=== PATIENT | male | born 1950 | race Caucasian/White ===

== ENCOUNTER 2022-01-01 00:41 | Observation (INO) ==
[2022-01-01 01:20] LABS: Basophils # (auto) 0.06 K/uL (0-0.2); Basophils % (auto) 0.7 %; Eosinophils # (auto) 0.13 K/uL (0-0.50); Eosinophils % (auto) 1.5 %; Hematocrit (blood only) 44.3 % (40.1-51.0); Hemoglobin 14.9 g/dl (14.0-18.0); Immature Granulocytes # (auto) 0.02 K/uL (0.00-0.02); Immature Granulocytes % (auto) 0.2 %; Lymphocytes # (auto) 2.52 K/uL (1.2-3.4); Lymphocytes % (auto) 29.2 %; Mean Corpuscular Hemoglobin 28.6 pg (25.0-34.0); Mean Corpuscular Hgb Conc 33.6 g/dL (32.0-36.0); Mean Platelet Volume 10.8 fL (9.4-12.4); Monocytes % (auto) 9.3 %; Neutrophils # (auto) 5.09 K/uL (1.4-6.5); Neutrophils % (auto) 59.1 %; Platelet Count 232 K/uL (130-400); RDW Coefficient of Variation 15.4 % (11.5-14.5); RDW Standard Deviation 47.5 fL (36.4-46.3); Red Blood Count 5.21 M/uL (4.63-6.08); White Blood Count 8.62 K/ul (4.8-10.8)
[2022-01-01 01:44] LABS: Albumin Globulin Ratio 1.2 (0.9-2); Albumin Level 3.8 gm/dl (3.4-5.0); BUN Creatinine Ratio 23.3 (10-20); Bilirubin,Total 0.8 mg/dl (0.2-1.0); Calcium 9.5 mg/dl (8.5-10.1); Creatinine Clr Calc Pharmacy 96.3 ml/min; Est GFR (African American) 99.7 ml/min; Globulin 3.3 gm/dl (2.5-4.0); Magnesium 1.6 mg/dl (1.7-2.4); Potassium 4.3 mmol/L (3.5-5.1); Total Protein 7.1 gm/dl (6.0-8.3)
[2022-01-01 01:47] LABS: Troponin I High Sensitivity 21.7 pg/ml (0-20)
[2022-01-01 01:55] LABS: Thyroid Stimulating Hormone 5.633 uIu/ml (0.300-4.500)
[2022-01-01 02:30] LABS: T4 Free Thyroxine 0.86 ng/dl (0.61-1.60)
--- NOTE | 2022-01-01 03:54 | Emergency Department Note ---
Impression & Plan Atrial fibrillation with rapid ventricular response, Implantable cardioverter- defibrillator (ICD) discharge, Elevated troponin The patient will be evaluated by the [facility] ED Provider Note NAME: JUAN R MACHUCA AGE: 71 SEX: M ARRIVES VIA: Ambulance INFORMANT: Patient ED PROVIDER(S): Mirlande Kenney DO CHIEF COMPLAINT: Defibrillator fired PLAN: Disposition: Admit to the [facility] Condition: Stable MEDICAL DECISION MAKING: This is a 71-year-old male patient brought to the emergency department after his defibrillator fired 3 times at home. Patient had a pacer/defibrillator placed in 2019. The patient was shaving at home when without any warning, his defibrillator fired. It then fired 2 additional times within approximately 90 seconds. Patient describes having a recent stroke in October 2021 which left him with right-sided hemiparesis. He has been working very hard to regain movement to the right side of his body. The pacer/defibrillator was interrogated by [employer] and revealed he had 3 episodes of A. fib with RVR that was greater than 180. Those 3 dysrhythmias were defibrillated. There was no impact on that rhythm by the shock and some mild slowing of the atrial rate. The patient has no significant electrolyte abnormality other than a mild hypomagnesemia. There is a mildly elevated troponin. The patient remained in an atrial fibrillation with rapid ventricular response and was given a dose of IV Cardizem here in the emergency department which lowered the patient's heart rate down into the 90s. Jeff the case with the [facility] and they will evaluate for further management. Triage Nursing notes reviewed and agree with them. Vital Signs: reviewed and remarkable for tachycardia Differential diagnosis: Ventricular tachycardia, A. fib with RVR, electrolyte abnormality, cardiac ischemia ER treatment provided: IV Cardizem Diagnostics interpreted by me: ECG: Atrial fibrillation at a rate of 119 which is intermittently paced there are T wave inversions in lead I and aVL. This EKG is unchanged from previous EKGs for this patient. Cardiac Monitoring: A. fib at a rate of 110 Laboratory studies: See below Imaging studies: As per my interpretation Chest x-ray: Significant cardiomegaly with mild to moderate pulmonary vascular congestion HPI: 71/M arrives for evaluation of his defibrillator firing. The patient was preparing for bed when he noted that his defibrillator fired 3 times in the span of 90 seconds. The patient denied any chest pain or shortness of breath or any other warning symptoms. ROS: See above HPI for pertinent positives & negatives. A total of 10 systems reviewed and were otherwise negative. PAST MEDICAL HISTORY:Recent stroke in October 2021 which left him with right-sided hemiparesis; paroxysmal A. fib; ischemic cardiomyopathy; diabetes PAST SURGICAL HISTORY:See Below FAMILY HISTORY:See Below SOCIAL HISTORY:The patient is currently living with his son for rehab. He denies any drug or alcohol use. HOME MEDICATIONS:See list ALLERGIES:None VITALS:See Below PHYSICAL EXAMINATION: HEENT: Head - normocephalic and atraumatic Pupils are equal, round, and reactive to light. Extraocular eye muscles are intact, and sclera are anicteric. Nose - moist nasal mucosa without discharge. Mouth - moist buccal mucosa. Oropharynx is nonerythematous and there is no tonsillar exudate or edema noted. Neck: Supple; no JVD, nuchal rigidity, cervical lymphadenopathy, or auscultated bruits. Heart: Tachycardic rate with an irregularly irregular rhythm. There is a normal S1 and S2 with no murmurs, clicks, or gallops appreciated. Lungs: Clear to auscultation bilaterally with no wheezes, rales, or rhonchi. Abdomen: Soft, completely nontender, nondistended, with good bowel sounds. There are no palpable pulsatile masses or hepatosplenomegaly. There is no guarding, rigidity, or rebound noted. Extremities: No evidence of cyanosis, clubbing, or edema. There are easily palpable peripheral pulses. Skin: warm and dry with good turgor and no rashes. ED COURSE: Times/Reassessments: 0045: Was evaluated in room C4. A complete history and physical was performed. Report was received from EMS. A twelve-lead EKG was obtained as described above. An order was placed for continuous cardiac monitoring. The patient was then A. fib with rapid ventricular response at a rate of 110. Laboratory studies were drawn as above. A portable chest x-ray was performed. Patient's pacer/defibrillator was interrogated. Given a dose of IV Cardizem. I discussed the case with the [facility] Hospitalist. Mirlande A Botti, DO Past Med/Surg History Surgical History H/O heart bypass surgery Social History Smoking Status: Never smoker Feels Safe at Home: Yes Allergies Allergies Allergy/AdvReac Type Severity Reaction Status Date / Time No Known Allergies Allergy Verified 01/01/22 01:30 Home Meds Home Medications Medication Instructions Recorded Confirmed aspirin 81 mg tablet,delayed 81 mg PO DAILY 09/03/20 01/01/22 release atorvastatin 80 mg tablet 80 mg PO .DAILY IN AFTERNOON 01/01/22 01/01/22 clopidogrel 75 mg tablet 75 mg PO QAM 01/01/22 01/01/22 escitalopram oxalate 10 mg tablet 10 mg PO HS 01/01/22 01/01/22 (Lexapro) metoprolol succinate 100 mg 100 mg PO QAM 01/01/22 01/01/22 tablet,extended release 24 hr spironolactone 25 mg tablet 25 mg PO QPM 01/01/22 01/01/22 Previous Rx's Medication Instructions Recorded furosemide 20 mg tablet 10 mg PO DAILY PRN edema #90 tabs 12/13/21 metformin 500 mg tablet 500 mg PO BID #180 tabs 12/13/21 Results & Data (ED) Vital Signs Vital Signs - 24 hr 01/01/22 01:26 01/01/22 01:33 01/01/22 01:13 Temperature 36.5 C Temperature Source Oral Pulse Rate 108 H 107 H Pulse Rate [Finger] Pulse Rate from SpO2 Sensor 114 H Pulse Rhythm Irregular Respiratory Rate 14 22 Respiratory Effort / Characteristics Non-Labored Respiratory Depth Normal Normal Blood Pressure 125/93 Blood Pressure [Right Arm] Blood Pressure Mean 103 Blood Pressure Mean [Right Arm] Blood Pressure Position [Right Arm] Pulse Oximetry 98 94 Oxygen Delivery Method Room Air Sepsis Recent Fever Within 48 Hours No Sepsis New/Unexplained Change in Mental Status N/A Sepsis Action Taken by Nursing No Action Required 01/01/22 01:20 01/01/22 01:30 01/01/22 01:30 Temperature Temperature Source Pulse Rate 116 H 104 H Pulse Rate [Finger] Pulse Rate from SpO2 Sensor 112 H Pulse Rhythm Respiratory Rate 12 17 Respiratory Effort / Characteristics Respiratory Depth Blood Pressure 125/93 Blood Pressure [Right Arm] Blood Pressure Mean 103 Blood Pressure Mean [Right Arm] Blood Pressure Position [Right Arm] Pulse Oximetry 95 Oxygen Delivery Method Sepsis Recent Fever Within 48 Hours Sepsis New/Unexplained Change in Mental Status Sepsis Action Taken by Nursing 01/01/22 01:40 01/01/22 01:50 01/01/22 03:46 Temperature Temperature Source Pulse Rate 112 H 121 H Pulse Rate [Finger] 110 H Pulse Rate from SpO2 Sensor Pulse Rhythm Respiratory Rate 20 13 17 Respiratory Effort / Characteristics Non-Labored Spontaneous Respiratory Depth Normal Blood Pressure Blood Pressure [Right Arm] 105/81 Blood Pressure Mean Blood Pressure Mean [Right Arm] 89 Blood Pressure Position [Right Arm] Sitting Pulse Oximetry 96 Oxygen Delivery Method Room Air Sepsis Recent Fever Within 48 Hours Sepsis New/Unexplained Change in Mental Status Sepsis Action Taken by Nursing 01/01/22 04:40 01/01/22 05:06 Temperature Temperature Source Pulse Rate Pulse Rate [Finger] 113 H 93 H Pulse Rate from SpO2 Sensor Pulse Rhythm Respiratory Rate 19 18 Respiratory Effort / Characteristics Non-Labored Spontaneous Non-Labored Spontaneous Respiratory Depth Normal Normal Blood Pressure Blood Pressure [Right Arm] 131/89 128/96 Blood Pressure Mean Blood Pressure Mean [Right Arm] 103 106 Blood Pressure Position [Right Arm] Sitting Sitting Pulse Oximetry 96 94 Oxygen Delivery Method Room Air Room Air Sepsis Recent Fever Within 48 Hours Sepsis New/Unexplained Change in Mental Status Sepsis Action Taken by Nursing Laboratory Data Result diagrams: 01/01/22 01:06 01/01/22 01:06 Lab Results 01/01/22 01/01/22 01/01/22 Range/Units 01:06 01:06 01:06 WBC 8.62 (4.8-10.8) K/ul RBC 5.21 (4.63-6.08) M/uL Hgb 14.9 (14.0-18.0) g/dl Hct 44.3 (40.1-51.0) % MCV 85.0 (80.0-100.0) fL MCH 28.6 (25.0-34.0) pg MCHC 33.6 (32.0-36.0) g/dL RDW Std Deviation 47.5 H (36.4-46.3) fL RDW Coeff of [place] 15.4 H (11.5-14.5) % Plt Count 232 (130-400) K/uL MPV 10.8 (9.4-12.4) fL Immature Gran % (Auto) 0.2 % Neut % (Auto) 59.1 % Lymph % (Auto) 29.2 % [place] % (Auto) 9.3 % Eos % (Auto) 1.5 % Baso % (Auto) 0.7 % Neut # (Auto) 5.09 (1.4-6.5) K/uL Lymph # (Auto) 2.52 (1.2-3.4) K/uL [place] # (Auto) 0.80 (0.24-0.82) K/uL Eos # (Auto) 0.13 (0-0.50) K/uL Baso # (Auto) 0.06 (0-0.2) K/uL Immature Gran # (Auto) 0.02 (0.00-0.02) K/uL Sodium 136 (136-145) mmol/L Potassium 4.3 (3.5-5.1) mmol/L Chloride 105 (98-107) mmol/L Carbon Dioxide 24 (21-32) mmol/L Anion Gap 7 (3-11) BUN 20 (6-23) mg/dl Creatinine 0.86 (0.6-1.4) mg/dl Est Cr Clr Drug Dosing 96.3 ml/min Est GFR ( Amer) 99.7 ml/min Est GFR (Non-Af Amer) 86.0 ml/min BUN/Creatinine Ratio 23.3 H (10-20) Glucose 129 H (70-99(Fasting)) mg/dl Calcium 9.5 (8.5-10.1) mg/dl Magnesium 1.6 L (1.7-2.4) mg/dl Total Bilirubin 0.8 (0.2-1.0) mg/dl AST 12 L (13-39) U/L ALT 13 (7-52) U/L Alkaline Phosphatase 86 (34-104) U/L Troponin I High Sens 21.7 H (0-20) pg/ml Total Protein 7.1 (6.0-8.3) gm/dl Albumin 3.8 (3.4-5.0) gm/dl Globulin 3.3 (2.5-4.0) gm/dl Albumin/Globulin Ratio 1.2 (0.9-2) TSH 5.633 H (0.300-4.500) uIu/ml Free T4 0.86 (0.61-1.60) ng/dl SARS-CoV-2, RNA, NAAT (NEGATIVE) 01/01/22 Range/Units Unknown WBC (4.8-10.8) K/ul RBC (4.63-6.08) M/uL Hgb (14.0-18.0) g/dl Hct (40.1-51.0) % MCV (80.0-100.0) fL MCH (25.0-34.0) pg MCHC (32.0-36.0) g/dL RDW Std Deviation (36.4-46.3) fL RDW Coeff of [place] (11.5-14.5) % Plt Count (130-400) K/uL MPV (9.4-12.4) fL Immature Gran % (Auto) % Neut % (Auto) % Lymph % (Auto) % [place] % (Auto) % Eos % (Auto) % Baso % (Auto) % Neut # (Auto) (1.4-6.5) K/uL Lymph # (Auto) (1.2-3.4) K/uL [place] # (Auto) (0.24-0.82) K/uL Eos # (Auto) (0-0.50) K/uL Baso # (Auto) (0-0.2) K/uL Immature Gran # (Auto) (0.00-0.02) K/uL Sodium (136-145) mmol/L Potassium (3.5-5.1) mmol/L Chloride (98-107) mmol/L Carbon Dioxide (21-32) mmol/L Anion Gap (3-11) BUN (6-23) mg/dl Creatinine (0.6-1.4) mg/dl Est Cr Clr Drug Dosing ml/min Est GFR ( Amer) ml/min Est GFR (Non-Af Amer) ml/min BUN/Creatinine Ratio (10-20) Glucose (70-99(Fasting)) mg/dl Calcium (8.5-10.1) mg/dl Magnesium (1.7-2.4) mg/dl Total Bilirubin (0.2-1.0) mg/dl AST (13-39) U/L ALT (7-52) U/L Alkaline Phosphatase (34-104) U/L Troponin I High Sens (0-20) pg/ml Total Protein (6.0-8.3) gm/dl Albumin (3.4-5.0) gm/dl Globulin (2.5-4.0) gm/dl Albumin/Globulin Ratio (0.9-2) TSH (0.300-4.500) uIu/ml Free T4 (0.61-1.60) ng/dl SARS-CoV-2, RNA, NAAT NEGATIVE (NEGATIVE) Administered Medications Discontinued Medications Diltiazem HCl (Diltiazem Hcl 5 Mg/Ml 5 Ml Vial) 10 mg IV NOW STA Stop: 01/01/22 04:28 Last Admin: 01/01/22 04:41 Dose: 10 mg Documented By: CC Co-signed By: AN Discharge Plan Visit Data Chief Complaint: Arrhythmia/Palpitations Stated Complaint: PACER/DEFIB - SHOCKED 3 TIMES ED Provider: Mirlande Kenney Discharge Problem: Atrial fibrillation with rapid ventricular response, Implantable cardioverter- defibrillator (ICD) discharge, Elevated troponin Forms Stand Alone Forms: My [facility] Prescriptions Prescriptions: No Action furosemide 20 mg tablet 10 mg PO DAILY PRN (Reason: edema) Qty: 90 3RF metformin 500 mg tablet 500 mg PO BID Qty: 180 3RF atorvastatin 80 mg tablet 80 mg PO .DAILY IN AFTERNOON clopidogrel 75 mg tablet 75 mg PO QAM metoprolol succinate 100 mg tablet extended release 24 hr 100 mg PO QAM spironolactone 25 mg tablet 25 mg PO QPM escitalopram oxalate [Lexapro] 10 mg tablet 10 mg PO HS aspirin 81 mg Tablet,Delayed Release (Dr/Ec) 81 mg PO DAILY Referrals Referrals: Nehemias Acosta DO [Primary Care Provider] -
--- NOTE | 2022-01-01 04:14 | History & Physical Report ---
Date of Service January 01, 2022 Assessment & Plan (1) Implantable cardioverter-defibrillator (ICD) discharge: Plan: 71yo male with a history of atrial fibrillation, ischemic cardiomyopathy s/p ICD placement, HLD, CVA (11/2021), and gout presents after his ICD fired. ICD firing Tachycardia improved after receiving diltiazem 10mg IV (x1) in ED Vitals otherwise stable EKG: NSR, widened QRS, no overt ischemic change Cardiology consulted Elevated troponin On admission, hsTroponin elevated to 21.7, repeat value pending EKG: NSR, no overt sign of ischemic change Patient without CP at this time Hypomagnesemia Magnesium on admission 1.6 Magnesium sulfate 1g IV ordered (x2 bags) Trend serum magnesium Elevated TSH On admission, TSH 5.6 Unclear if this represents hypothyroidism or is an acute phase reactant Recommend follow-up TSH in six weeks on an outpatient basis FEN: HH/DM2 diet, Code status: full code DVT ppx: SCDs Consults: cardiology Dispo: med/telemetry (2) Acute CVA (cerebrovascular accident): (3) Atrial fibrillation with rapid ventricular response: (4) Elevated troponin: (5) Hyperlipidemia: History of Present Illness Primary Care Provider: Nehemias Acosta, 71yo male with a history of atrial fibrillation, ischemic cardiomyopathy s/p ICD placement, HLD, CVA (11/2021), and gout presents after his ICD fired. Patient reports no preceding symptoms nor symptoms after the ICD fired. Of note, patient was hospitalized in October for a CVA. Patient denies fever, chills, headache, vision changes, CP, palpitations, SOB, edema, abdominal pain, nausea, vomiting, dysuria, hematochezia, melena, back pain, lightheadedness, dizziness, numbness, tingling, weakness, or other symptoms. Denies recent illness. Upon arrival, vitals were notable for tachycardia (110-120s). BP controlled, no tachypnea, patient afebrile, spO2 adequate on room air. Initial labs were notable for hypomagnesemia (1.6), minimally elevated hsTroponin (21.7), and elevated TSH (5.6). No leukocytosis, no anemia, platelets wnl, In the ED, patient received diltiazem 10mg IV (x1). Surrogate decision-maker in case of an emergency: son Juancho Cabrera (cell: [phone]) Allergies Allergy/AdvReac Type Severity Reaction Status Date / Time No Known Allergies Allergy Verified 01/01/22 01:30 Home Medications Medication Instructions Recorded Confirmed Type aspirin 81 mg tablet,delayed 81 mg PO DAILY 09/03/20 01/01/22 History release furosemide 20 mg tablet 10 mg PO DAILY PRN edema #90 tabs 12/13/21 01/01/22 Rx metformin 500 mg tablet 500 mg PO BID #180 tabs 12/13/21 01/01/22 Rx atorvastatin 80 mg tablet 80 mg PO .DAILY IN AFTERNOON 01/01/22 01/01/22 History clopidogrel 75 mg tablet 75 mg PO QAM 01/01/22 01/01/22 History escitalopram oxalate 10 mg tablet 10 mg PO HS 01/01/22 01/01/22 History (Lexapro) metoprolol succinate 50 mg 150 mg PO QAM 30 days #90 tabs 01/01/22 Rx tablet,extended release 24 hr spironolactone 25 mg tablet 25 mg PO QPM 01/01/22 01/01/22 History Past Med/Surg History Surgical History H/O heart bypass surgery Social History Smoking Status: Never smoker Hx Alcohol Use: No Hx Substance Use: No Cosmetic Chemist Required: No Beliefs That Will Affect Care: None Current Living Situation: Family Current Living Situation Comment: lives with son Other Information That Helps Us Care for You: No Feels Safe at Home: Yes Safety Concerns: Feels Safe At This Time Assistive Devices: Glasses and Walker Physical Exam Physical Exam: Constitutional: well-appearing, no acute distress HEENT: NCAT, no conjunctival injection CV: regular rhythm, no murmur appreciated, extremities well-perfused, no LE edema Resp: CTABL, no wheezes/rales/rhonchi appreciated, no increased work of breathing GI: soft, nondistended, nontender, BS normoactive MSK: no gross deformities appreciated Skin: midline sternal scar noted Neuro: alert, oriented, no focal neurologic deficit appreciated Results & Data Results & Data ([facility]) Vital Signs (Past 12 Hours) Vital Signs Temp Pulse Pulse Resp BP BP Pulse Ox 01/01/22 03:46 110 H 17 105/81 96 01/01/22 01:50 121 H 13 01/01/22 01:40 112 H 20 01/01/22 01:30 104 H 17 01/01/22 01:30 125/93 01/01/22 01:20 116 H 12 95 01/01/22 01:13 107 H 22 94 01/01/22 01:26 36.5 C 108 H 14 125/93 98 O2 Del Method 01/01/22 03:46 Room Air 01/01/22 01:50 01/01/22 01:40 01/01/22 01:30 01/01/22 01:30 01/01/22 01:20 01/01/22 01:13 01/01/22 01:26 Room Air Supervising Physician Co-Signing Physician Notes Attending addendum: I have physically seen this patient, have supervised the medical residents activities, and agree with the H&P unless as otherwise noted. Assessment and Plan: Status post AICD firing- The patient will be admitted to telemetry for serial cardiac enzymes, serial E KG's, cardiac rhythm monitoring and a 2-D echocardiogram with Dopplers. Given diltiazem 10 mg IV in the ED with improved heart rate ED reports that the report from manufacture did not indicate V. tach [employer] magnesium, which is 1.6 on admission, given 2 g of mag IV and recheck labs in a.m. Consult cardiology Resident Activity Tracking Resident Involvement: Resident Care Provided and Interface Developer Coverage Note Care Provided: Adult Hospital Medicine
[2022-01-01] MEDS ORDERED: dilTIAZem HCl 5 MG/ML 5 ML VIAL IV STA (04:27)
[2022-01-01] MEDS ORDERED: GLUCOSE 10 TAB/TUBE PO PRN (06:00)
[2022-01-01] MEDS ORDERED: CARBOHYDRATES FOR HYPOGLYCEMIA PO PRN (06:00)
[2022-01-01] MEDS ORDERED: DEXTROSE 50% 50 ML SYRINGE IV PRN (06:00)
[2022-01-01] MEDS ORDERED: GLUCAGON FOR INJ 1 MG VIAL SQ PRN (06:00)
[2022-01-01] MEDS ORDERED: GLUCOSE 40% GEL 15 GM TUBE PO PRN (06:00)
[2022-01-01] MEDS: MAGNESIUM SULFATE / D5W 1 GM/100 ML BAG IV SCH ×2 (06:34→08:56)
--- NOTE | 2022-01-01 07:42 | XRay Report ---
SINGLE VIEW CHEST CLINICAL HISTORY: Dysrhythmia. FINDINGS: An AP, portable, upright chest radiograph is compared to study dated 09/03/2020. A 2-lead ca rdiac AICD is unchanged in position and partially obscures the left lower chest. The patient is statu s post midline sternotomy. The heart is enlarged noting atherosclerotic calcification of the thoracic aorta. There is mild pulmonary vascular congestion. Scarring/atelectasis is noted at both lung bases . No large pleural effusion or pneumothorax is seen. The skeletal structures are osteopenic. The bony thorax is grossly intact. IMPRESSION: 1. Cardiomegaly and AICD with mild pulmonary vascular congestion. 2. No airspace consolidation or large pleural effusion is identified. ACT 112: Negative or not required by law. Electronically signed by: Weston Olivo M.D. 01/01/2022 7:41 AM
[2022-01-01] MEDS: INSULIN ASPART PER UNIT SC SCH ×2 (08:11→11:48)
[2022-01-01] MEDS ORDERED: METOPROLOL SUCC 50MG EXT REL TAB PO SCH (09:00)
[2022-01-01] MEDS ORDERED: CLOPIDOGREL BISULFATE 75 MG TAB PO SCH (09:00)
[2022-01-01] MEDS ORDERED: ASPIRIN 81 MG ECTAB PO SCH (09:00)
--- NOTE | 2022-01-01 12:20 | Cardiology Consultation ---
Date of Consultation January 01, 2022 Assessment & Plan (1) Atrial fibrillation with rapid ventricular response: -responsible for 3 ICD defibrillations last evening. -detection threshold was 180 bpm. -Dr Thomas increased the detection threshold to 195bpm. -has been in atrial fibrillation with a ventricular response of 100-110 bpm for 3-4 months. -would increase metoprolol succinate to 150 mg daily. -could consider use of amiodarone. Will defer to his historic preservationist in [facility]. -s/p left atrial appendage exclusion procedure, August 2018, no anticoagulation. -chronic subdural hematoma, August 2020, no anticoagulation. (2) Implantable cardioverter-defibrillator (ICD) discharge: -[employer] device implanted in 2019. -interrogated by Dr. Thomas today as noted above. (3) Ischemic cardiomyopathy: -LVEF of 15-20% on echocardiogram October 2021 ([facility]). -continue metoprolol succinate and spironolactone. -consider initiating low-dose Entresto. -continue follow-up with Dr. Franklin, [facility]. (4) CAD (coronary artery disease): -s/p CABG x4, August 2018. -continue medical management. History of Present Illness Attending Physician: Sherman Hinojosa, History of Present Illness Dr. Cabrera is a 71 year old male admitted earlier today after his defibrillator discharged 3 times in a matter of 90 seconds. This consultation was ordered to assist in his management. Of note, patient typically follows with Dr. Franklin of [facility]. The patient was in his usual state of health until last evening at approximately 11:00 p.m.. He was standing in his bathroom preparing to shave when the 1st discharge occurred. Within 90 seconds, he received 2 more defibrillations. He was brought to the emergency room found to be in atrial fibrillation with a rapid ventricular response. The [employer] investment representative interrogated his device remotely. The patient was in atrial fibrillation with a rapid ventricular response of greater than 180 beats per minute when the 3 discharges occurred. Of note, the patient's magnesium level is low at 1.6. He has received intravenous magnesium. The patient does carry a history of paroxysmal atrial fibrillation. He does not take long-term anticoagulation as he had a left atrial appendage exclusion procedure performed at the time of his bypass surgery in August 2018. Furthermore, he suffered a subdural hematoma back in August 2020. He also carries a history of coronary artery disease having undergone a 4 vessel bypass in August 2018. He also has chronic systolic CHF due to an ischemic cardiomyopathy. Echocardiogram performed back in October noted an ejection fraction 15-20%. He had a dual-chamber defibrillator placed in 2019. The patient suffered a recent right-sided CVA and was admitted to [facility] on November 02, 2021. He had been traveling and [place] when he noticed right- sided weakness. He from [facility] for medical care. He was diagnosed with the left ventral medullary infarction. He was in atrial fibrillation at the time of his admission. As above, his echocardiogram noted severe left ventricular dysfunction. He was transferred to [facility] on November 06 and remained there until November 25. He was discharged home on Plavix alone. Currently, patient is resting comfortably in bed without complaints. Past medical and surgical history 1. Coronary artery disease-see above 2. CABG x4-August 2018 3. Ischemic [id number]%, October 2021 4. Chronic systolic CHF 5. Paroxysmal atrial fibrillation 6. Left atrial appendage exclusion procedure-August 2018 7. Dual chamber ICD-2019 8. Hypertension 9. Hypercholesterolemia 10. Diabetes mellitus 11. Gout 12. Obesity 13. 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 Allergies Allergy/AdvReac Type Severity Reaction Status Date / Time No Known Allergies Allergy Verified 01/01/22 01:30 Home Medications Medication Instructions Recorded Confirmed Type aspirin 81 mg tablet,delayed 81 mg PO DAILY 09/03/20 01/01/22 History release furosemide 20 mg tablet 10 mg PO DAILY PRN edema #90 tabs 12/13/21 01/01/22 Rx metformin 500 mg tablet 500 mg PO BID #180 tabs 12/13/21 01/01/22 Rx atorvastatin 80 mg tablet 80 mg PO .DAILY IN AFTERNOON 01/01/22 01/01/22 History clopidogrel 75 mg tablet 75 mg PO QAM 01/01/22 01/01/22 History escitalopram oxalate 10 mg tablet 10 mg PO HS 01/01/22 01/01/22 History (Lexapro) metoprolol succinate 100 mg 100 mg PO QAM 01/01/22 01/01/22 History tablet,extended release 24 hr spironolactone 25 mg tablet 25 mg PO QPM 01/01/22 01/01/22 History Patient History Surgical History H/O heart bypass surgery Social History Smoking Status: Never smoker Hx Alcohol Use: No Hx Substance Use: No Shelf Filler Required: No Beliefs That Will Affect Care: None Current Living Situation: Family Current Living Situation Comment: lives with son Other Information That Helps Us Care for You: No Feels Safe at Home: Yes Safety Concerns: Feels Safe At This Time Assistive Devices: Glasses and Walker Results & Data ([facility]) Vital Signs (Past 12 Hours) Vital Signs Temp Pulse Pulse Resp BP BP BP 01/01/22 11:16 36.7 C 108 H 18 126/69 01/01/22 08:29 36.5 C 99 H 17 94/70 L 01/01/22 07:21 100 H 01/01/22 06:00 36.4 C L 89 16 132/72 01/01/22 05:06 93 H 18 128/96 01/01/22 04:40 113 H 19 131/89 01/01/22 03:46 110 H 17 105/81 01/01/22 01:50 121 H 13 01/01/22 01:40 112 H 20 01/01/22 01:30 104 H 17 01/01/22 01:30 125/93 01/01/22 01:20 116 H 12 01/01/22 01:13 107 H 22 01/01/22 01:26 36.5 C 108 H 14 125/93 Pulse Ox O2 Del Method 01/01/22 11:16 92 Room Air 01/01/22 08:29 94 Room Air 01/01/22 07:21 01/01/22 06:00 95 Room Air 01/01/22 05:06 94 Room Air 01/01/22 04:40 96 Room Air 01/01/22 03:46 96 Room Air 01/01/22 01:50 01/01/22 01:40 01/01/22 01:30 01/01/22 01:30 08/17/22 01:20 95 01/01/22 01:13 94 01/01/22 01:26 98 Room Air Laboratory Results CBC notes hemoglobin 14.9, hematocrit 44.3, white count 8.6, and platelet count [id number]. Electrolytes note a sodium of 136, potassium 4.3, chloride 105, bicarb 24, BUN 20, creatinine 0.86, and glucose of 129. Magnesium level was 1.6 at time of admission. Initial high sensitivity troponin was 21.7 with a follow-up value of 55.7. TSH is mildly elevated 5.63 with a normal T4 of 0.86. Diagnostic Findings EKG notes atrial fibrillation and ventricular pacing. Chest x-ray notes cardiomegaly and an ICD. PG Care Time/CCT Total # of Minutes Spent Total Time Spent with Patient: Total time spent is greater than 50% in coordination of care (as documented) at patient's floor/unit and/or counseling patient: Coding Level of Care Code 97302 Initial Inpt Care Lvl 3 Diagnoses Atrial fibrillation with rapid ventricular response I48.91 Implantable cardioverter-defibrillator (ICD) discharge Z45.02 Ischemic cardiomyopathy I25.5 CAD (coronary artery disease) I25.10
--- NOTE | 2022-01-01 13:51 | Electrocardiogram Report ---
Test Reason : Blood Pressure : / mmHG Vent. Rate : 119 BPM Atrial Rate : 046 BPM P-R Int : 000 ms QRS Dur : 100 ms QT Int : 338 ms P-R-T Axes : 000 -41 122 degrees QTc Int : 475 ms Atrial fibrillation ventricular-paced complexes Left axis deviation Left ventricular hypertrophy with repolarization abnormality Anteroseptal infarct (cited on or before 03-SEP-2020) Abnormal ECG When compared with ECG of 03-SEP-2020 13:13, Prior tracing unreadable due to artifact Confirmed by Migue Sevilla ([id number]) on 01/01/2022 1:50:38 PM Referred By: REFERRED SELF Confirmed By:Migue Sevilla
[2022-01-01] MEDS ORDERED: ATORVASTATIN 40 MG TAB PO SCH (14:00)
--- NOTE | 2022-01-01 16:44 | Discharge Summary ---
Date of Service January 01, 2022 Admission HPI Per Admitting Provider 71yo male with a history of atrial fibrillation, ischemic cardiomyopathy s/p ICD placement, HLD, CVA (11/2021), and gout presents after his ICD fired. Patient reports no preceding symptoms nor symptoms after the ICD fired. Of note, patient was hospitalized in October for a CVA. Patient denies fever, chills, headache, vision changes, CP, palpitations, SOB, edema, abdominal pain, nausea, vomiting, dysuria, hematochezia, melena, back pain, lightheadedness, dizziness, numbness, tingling, weakness, or other symptoms. Denies recent illness. Upon arrival, vitals were notable for tachycardia (110-120s). BP controlled, no tachypnea, patient afebrile, spO2 adequate on room air. Initial labs were notable for hypomagnesemia (1.6), minimally elevated hsTroponin (21.7), and elevated TSH (5.6). No leukocytosis, no anemia, platelets wnl, In the ED, patient received diltiazem 10mg IV (x1). Surrogate decision-maker in case of an emergency: rafita Cabrera (cell: [phone]) Principal Diagnosis ICD firing Discharge Exam Constitutional WD/WN, vitals as above Eyes + anicteric sclerae Neck trachea midline, no thyromegaly Respiratory normal respiratory effort, lungs clear to auscultation Cardiovascular Rate/Rhythm: regular rate and + irregularly irregular Vessels: no JVD Gastrointestinal (Abdomen) normal bowel sounds, soft, nontender, no hepatosplenomegaly Musculoskeletal Head/Neck/Chest: normocephalic and head atraumatic Skin no rashes, warm and dry Neurologic moves all extremities Psychiatric Orientation: alert and oriented x 3 Affect: + anxious affect Discharge Data Allergies Allergy/AdvReac Type Severity Reaction Status Date / Time No Known Allergies Allergy Verified 01/01/22 01:30 Consultations 01/01/22 03:58 ED Decision to Admit Stat 01/01/22 06:00 Consult Cardiology Routine Hospital Course (1) Implantable cardioverter-defibrillator (ICD) discharge: 71yo male with a history of atrial fibrillation, ischemic cardiomyopathy s/p ICD placement, HLD, CVA (11/2021), and gout presents after his ICD fired. ICD firing - Tachycardia improved after receiving diltiazem 10mg IV (x1) in ED - Vitals otherwise stable - EKG: NSR, widened QRS, no overt ischemic change - Cardiology consulted- ICD interrogated without malfunction. Changed ICD threshold to 195 bpm from 180 and recommended changing Torpol dose to 150 mg daily - Could consider amiodarone if afib with rvr persists - F/u with Carpet Sewing Machine Operator within the next 1-2 weeks HFrEF -F/u with pt's cloud infrastructure architect in outpatient setting -Pt not fluid overloaded, it was noticed that he is not on arb/courtney/entresto -Recommend going on a low dose Entresto, but will defer to pt's cloud infrastructure architect in [place] Elevated troponin - On admission, hsTroponin elevated to 21.7 which uptrended to 55.7 secondary to defibrillation and afib - EKG: NSR, no overt sign of ischemic change - Patient without CP at this time Hypomagnesemia - Magnesium on admission 1.6 - Magnesium sulfate 1g IV ordered (x2 bags) - consider resolved Elevated TSH - On admission, TSH 5.6 - Unclear if this represents hypothyroidism or is an acute phase reactant - Recommend follow-up TSH in six weeks on an outpatient basis FEN: HH/DM2 diet, Code status: full code DVT ppx: SCDs Consults: cardiology Dispo: d/c home (2) Acute CVA (cerebrovascular accident): (3) Atrial fibrillation with rapid ventricular response: (4) Elevated troponin: (5) Hyperlipidemia: Total Time Total Time Spent Total Time Spent (In Minutes): 30 Discharge Plan Discharge Items Patient Disposition: Home - Self-Care Reason For Visit: ICD FIRED Discharge Diagnosis: ICD fired Activity: Per Instructions section Non-emergency contact: Primary Care Provider and Carpet Sewing Machine Operator Call non-emergency contact if: you have any medication questions Follow-up/Referrals: Nehemias Acosta DO [Primary Care Provider] - Diet: Regular Addtl Attending Provider Instructions: You were seen in the hospital for the concern of your ICD going off 3 times. You are admitted in the hospital and your ICD was interrogated. It was found that your threshold for defibrillation was set to 180 bpm. The rhythm that you experienced when you had the defibrillation events occur was atrial fibrillation with rapid ventricular response which had exceeded the 180 bpm threshold. For this reason the threshold was increased to 195 bpm and your metoprolol was increased to 150 mg daily. Otherwise there were no other concerns on your visit and can go back home without any other changes other than the ones listed above. Please follow-up with your primary care provider for continuity of care additionally would recommend following up with your cloud infrastructure architect to see if they have any other recommendations. Has been a pleasure to be part of your care and we wish you the best in both your health and your recovery Pending Studies at Discharge: No Stand-Alone Forms: My [facility], Smoking Cessation Medications and DC Order Prescriptions: New metoprolol succinate 50 mg Tablet Extended Release 24 Hr 150 mg PO QAM 30 Days Qty: 90 2RF Continued furosemide 20 mg tablet 10 mg PO DAILY PRN (Reason: edema) Qty: 90 3RF metformin 500 mg tablet 500 mg PO BID Qty: 180 3RF atorvastatin 80 mg tablet 80 mg PO .DAILY IN AFTERNOON clopidogrel 75 mg tablet 75 mg PO QAM spironolactone 25 mg tablet 25 mg PO QPM escitalopram oxalate [Lexapro] 10 mg tablet 10 mg PO HS aspirin 81 mg Tablet,Delayed Release (Dr/Ec) 81 mg PO DAILY Discontinued metoprolol succinate 100 mg tablet extended release 24 hr 100 mg PO QAM Discharge Orders: Discharge Order (Routine); Ordered 01/01/22 Ordered By: Felix Levy Admission Data Admit Date/Time: 01/01/22 05:09 Attending Provider: Sherman Hinojosa Admit Provider: Kolby Grayson Primary Care Provider: Nehemias Acosta Other Providers: Adryan Morel ; Migue Sevilla
--- NOTE | 2022-01-01 18:02 | Billing Data ---
Date of Service January 01, 2022 Coding Level of Care Code D/C DAY MANAGEMENT <30 MINS
[2022-01-01] MEDS ORDERED: SPIRONOLACTONE 25 MG TAB PO SCH (21:00)
[2022-01-01] MEDS ORDERED: ESCITALOPRAM OXALATE 10 MG TAB PO SCH (21:00)
--- NOTE | 2022-01-01 22:51 | Billing Data ---
Date of Service January 01, 2022 Coding Level of Care Code 52935 Initial Inpt Care Lvl 3
--- NOTE | 2022-01-01 22:51 | Billing Data ---
Date of Service January 01, 2022 Coding Level of Care Code 30688 Initial Inpt Care Lvl 3
== END 2022-01-01 17:41 | disposition home or self-care (01) ==
LOC: ED 00:41 → SUATTDRO 05:09 → INTOOBSV 05:09 → 2N 05:09

== ENCOUNTER 2022-04-30 09:57 | Inpatient (IN) ==
--- NOTE | 2022-04-30 10:37 | Emergency Department Note ---
Impression & Plan Acute occlusion of artery, Acute occlusion of aortoiliac artery, Atrial fibrillation with rapid ventricular response ED Provider Note NAME: JUAN R MACHUCA AGE: 71 SEX: M : 1950 ARRIVES VIA: Ambulance INFORMANT: Patient, ED PROVIDER(S): Migue Elliott DO CHIEF COMPLAINT: Thigh pain HPI: The patient is a 71-year-old male who presented to the emergency department by ambulance for an evaluation of pain behind his left thigh. He describes it as a crampy sensation with also numbness. He denies having any back pain or chest pain. He denies having any headache. He has a history of stroke and does take blood thinners. He states has been compliant with his outpatient medications. He states that this discomfort started only few hours ago. He denies having any vomiting. He denies having any injury. He states the pain is worsened when he tries to ambulate. He also describes some numbness and tingling in his left foot. ROS: See above HPI for pertinent positives & negatives. A total of 10 systems reviewed and were otherwise negative. PAST MEDICAL HISTORY: See Below PAST SURGICAL HISTORY: See Below FAMILY HISTORY: See Below SOCIAL HISTORY: See Below HOME MEDICATIONS: See Below ALLERGIES: See Below VITALS: See Below PHYSICAL EXAMINATION: GENERAL: Patient is awake alert in no acute distress patient is resting comfortably and showing no signs of anxiety EYES: The conjunctivae are clear. The pupils are round and reactive. EARS, NOSE, MOUTH AND THROAT: The nose is without any evidence of any deformity. Mucous membranes are moist. Tongue is midline. NECK: The neck is nontender and supple. RESPIRATORY: Normal respiratory effort is noted there is no evidence of wheezing rhonchi or rales CARDIOVASCULAR: Ectopy was noted auscultation. There is no definite murmur. GASTROINTESTINAL: The abdomen is soft. Abdomen is nontender. BACK: No midline tenderness or or step-off noted range of motion in flexion extension as well as rotation no signs of muscle spasm noted MUSCULOSKELETAL/EXTREMITIES: There is no evidence of gross deformity full range of motion is noted in the hips and shoulders. There is palpable tenderness in the posterior aspect of the left thigh. There is no swelling. SKIN: There is no obvious evidence of any rash. There are no petechiae, pallor or cyanosis noted. Pulses are symmetric in both feet. No vesicular rash was appreciated. NEUROLOGIC: Patient is awake alert and oriented x3 strength is symmetric patellar reflexes are 2+ bilaterally MEDICAL DECISION MAKING: The patient is a 71-year-old male who presented to the emergency department for an evaluation of left leg pain. The patient appeared to have symmetric pulses in the feet. The patient did not have significant swelling. Laboratory r adiographic studies were obtained to determine the cause of the patient's lower extremity pain. Initially I thought it could be secondary to musculoskeletal pain or possibly referred pain from his back. On the ultrasound of the Doppler the patient was noted to have an arterial occlusion. The patient was started on IV heparin. The patient does have a history of atrial fibrillation. He does not currently take oral anticoagulants. I discussed the patient's laboratory and radiographic studies with him. He was treated with pain medication as well. I discussed his condition with the on-call [facility] hospitalist group. I also discussed this case with the vascular surgeon. CT angiography was also obtained. There does appear to be significant occlusion in the iliac artery as well as the femoral artery. Triage Nursing notes reviewed. Prior medical records reviewed Vital Signs: reviewed and remarkable for tachycardia and hypertension. Differential diagnosis: DVT, musculoskeletal, infection, joint effusion, trauma, lymphedema, idiopathic, CHF, as well as other pathologies. ER treatment provided: See below Diagnostics interpreted by me: ECG: EKG was obtained in the emergency department. My interpretation is atrial fibrillation at 130 bpm. Paced beats were noted. Left bundle branch block pattern was suggested. LVH was noted by voltage criteria. This was compared to a tracing from January 01, 2022. Less paced beats were noted on today's tracing. Cardiac Monitoring: An order was placed for continuous cardiac monitoring. The monitor shows a rate of 122 bpm with atrial fibrillation. Laboratory studies: As stated above and show below. Imaging studies: See below Consultation(s): I discussed this case with Dr. Javier. He agreed to evaluate the patient in the emergency department for further management and disposition. Discussed this case with Dr. Sharp. Given the findings on CT of the head we will hold the heparin at this time. The CT likely represents the IV contrast that was given earlier. He would recommend reevaluation with another CAT scan tomorrow to determine if this area is still consistent with IV contrast versus subarachnoid hemorrhage. ED COURSE: Procedures: none Critical Care: I have personally spent greater than 45 minutes of critical care time in the direct management of this patient. This includes bedside care, interpretation of diagnostic studies, and testing, discussion with consultants, patient, and family members, and other required patient management activities. This 45 minutes is in excess of all separately billable procedures. Past Med/Surg History Medical History Acute CVA (cerebrovascular accident) Atrial fibrillation with rapid ventricular response Elevated troponin Implantable cardioverter-defibrillator (ICD) discharge Surgical History H/O heart bypass surgery Family History Brother Diabetes Mother Hypertension Father Stroke Denies family history of Ovarian cancer Prostate cancer Myocardial infarction Breast cancer Colorectal cancer Social History Smoking Status: Never smoker Second Hand Exposure: No; Hx Alcohol Use: No Hx Substance Use: No Preferred Language: [place] [employer] [place] Required: No Beliefs That Will Affect Care: None Current Living Situation: Family Current Living Situation Comment: lives with son current occupational status: retired Feels Safe at Home: Yes Physical Activity Frequency: 1-2 Times per Week Seatbelt Use: always Assistive Devices: Glasses and Walker Allergies Allergies Allergy/AdvReac Type Severity Reaction Status Date / Time No Known Allergies Allergy Verified 04/30/22 15:38 Home Meds Home Medications Medication Instructions Recorded Confirmed aspirin 81 mg tablet,delayed 81 mg PO DAILY 09/03/20 04/30/22 release atorvastatin 80 mg tablet 80 mg PO QPM 01/01/22 04/30/22 clopidogrel 75 mg tablet 75 mg PO QAM 01/01/22 04/30/22 escitalopram oxalate 10 mg tablet 10 mg PO HS 01/01/22 04/30/22 (Lexapro) spironolactone 25 mg tablet 25 mg PO QPM 01/01/22 04/30/22 allopurinol 100 mg tablet 100 mg PO DAILY 03/21/22 04/30/22 ropinirole 0.25 mg tablet 0.5 mg PO HS 04/30/22 04/30/22 Previous Rx's Medication Instructions Recorded furosemide 20 mg tablet 10 mg PO DAILY PRN edema #90 tabs 12/13/21 metformin 500 mg tablet 500 mg PO BID #180 tabs 12/13/21 metoprolol succinate 25 mg 25 mg PO DAILY #30 tabs 03/21/22 tablet,extended release 24 hr metoprolol succinate 50 mg 100 mg PO QAM 30 days #60 tabs 03/21/22 tablet,extended release 24 hr Results & Data (ED) Vital Signs Vital Signs - 24 hr 04/30/22 10:08 04/30/22 10:16 04/30/22 11:19 Temperature 36.6 C Temperature Source Oral Pulse Rate 114 H 114 H Pulse Rate [Apical] 128 H Pulse Rhythm [Apical] Irregular Pulse Strength [Apical] Normal Respiratory Rate 18 18 24 Respiratory Effort / Characteristics Non-Labored Spontaneous Non-Labored Respiratory Depth Normal Normal Respiratory Pattern Regular Regular Blood Pressure 164/111 H Blood Pressure [Right Arm] 164/111 H Blood Pressure Mean 128 Blood Pressure Mean [Right Arm] 128 Blood Pressure Position Sitting Blood Pressure Position [Right Arm] Lying Pulse Oximetry 98 98 94 Oxygen Delivery Method Room Air Room Air Sepsis Recent Fever Within 48 Hours No Sepsis New/Unexplained Change in Mental Status N/A Sepsis Action Taken by Nursing No Action Required 04/30/22 14:00 04/30/22 16:31 04/30/22 16:34 Temperature Temperature Source Pulse Rate 119 H Pulse Rate [Apical] 122 H 108 H Pulse Rhythm [Apical] Irregular Irregular Pulse Strength [Apical] Normal Respiratory Rate 20 18 Respiratory Effort / Characteristics Non-Labored Non-Labored Spontaneous Respiratory Depth Normal Normal Respiratory Pattern Regular Regular Blood Pressure 121/89 Blood Pressure [Right Arm] 147/105 H 121/89 Blood Pressure Mean Blood Pressure Mean [Right Arm] 119 99 Blood Pressure Position Blood Pressure Position [Right Arm] Lying Sitting Pulse Oximetry 93 94 Oxygen Delivery Method Room Air Room Air Sepsis Recent Fever Within 48 Hours Sepsis New/Unexplained Change in Mental Status Sepsis Action Taken by Half-Way Medications Current Medication List: was personally reviewed by me Laboratory Data Attestation: I reviewed the patient's lab results. Result diagrams: 04/30/22 11:00 04/30/22 11:00 Lab Results 04/30/22 04/30/22 04/30/22 Range/Units 11:00 11:00 11:00 WBC 9.15 (4.8-10.8) K/ul RBC 5.43 (4.63-6.08) M/uL Hgb 16.0 (14.0-18.0) g/dl Hct 47.7 (40.1-51.0) % MCV 87.8 (80.0-100.0) fL MCH 29.5 (25.0-34.0) pg MCHC 33.5 (32.0-36.0) g/dL RDW Std Deviation 47.5 H (36.4-46.3) fL RDW Coeff of [place] 14.8 H (11.5-14.5) % Plt Count 206 (130-400) K/uL MPV 10.3 (9.4-12.4) fL Immature Gran % (Auto) 0.3 % Neut % (Auto) 71.8 % Lymph % (Auto) 19.7 % [place] % (Auto) 6.6 % Eos % (Auto) 0.9 % Baso % (Auto) 0.7 % Neut # (Auto) 6.58 H (1.4-6.5) K/uL Lymph # (Auto) 1.80 (1.2-3.4) K/uL [place] # (Auto) 0.60 (0.24-0.82) K/uL Eos # (Auto) 0.08 (0-0.50) K/uL Baso # (Auto) 0.06 (0-0.2) K/uL Immature Gran # (Auto) 0.03 H (0.00-0.02) K/uL PT 13.1 H (9.0-12.0) Seconds INR 1.2 H (0.9-1.1) APTT 26.2 (21.0-31.0) Seconds PTT Ratio 1.0 Sodium 139 (136-145) mmol/L Potassium 4.2 (3.5-5.1) mmol/L Chloride 104 (98-107) mmol/L Carbon Dioxide 25 (21-32) mmol/L Anion Gap 10 (3-11) BUN 19 (6-23) mg/dl Creatinine 0.89 (0.6-1.4) mg/dl Est Cr Clr Drug Dosing Not Reportable Est GFR ( Amer) 98.3 ml/min Est GFR (Non-Af Amer) 84.8 ml/min BUN/Creatinine Ratio 21.3 H (10-20) Glucose 145 H (70-99(Fasting)) mg/dl Calcium 9.3 (8.5-10.1) mg/dl Total Bilirubin 0.9 (0.2-1.0) mg/dl AST 15 (13-39) U/L ALT 13 (7-52) U/L Alkaline Phosphatase 97 (34-104) U/L Total Creatine Kinase 223 (30-223) U/L Troponin I High Sens 18.5 (0-20) pg/ml Total Protein 7.0 (6.0-8.3) gm/dl Albumin 4.0 (3.4-5.0) gm/dl Globulin 3.0 (2.5-4.0) gm/dl Albumin/Globulin Ratio 1.3 (0.9-2) Lipase 8 L (11-82) U/L SARS-CoV-2, RNA, NAAT (NEGATIVE) 04/30/22 Range/Units 14:17 WBC (4.8-10.8) K/ul RBC (4.63-6.08) M/uL Hgb (14.0-18.0) g/dl Hct (40.1-51.0) % MCV (80.0-100.0) fL MCH (25.0-34.0) pg MCHC (32.0-36.0) g/dL RDW Std Deviation (36.4-46.3) fL RDW Coeff of [place] (11.5-14.5) % Plt Count (130-400) K/uL MPV (9.4-12.4) fL Immature Gran % (Auto) % Neut % (Auto) % Lymph % (Auto) % [place] % (Auto) % Eos % (Auto) % Baso % (Auto) % Neut # (Auto) (1.4-6.5) K/uL Lymph # (Auto) (1.2-3.4) K/uL [place] # (Auto) (0.24-0.82) K/uL Eos # (Auto) (0-0.50) K/uL Baso # (Auto) (0-0.2) K/uL Immature Gran # (Auto) (0.00-0.02) K/uL PT (9.0-12.0) Seconds INR (0.9-1.1) APTT (21.0-31.0) Seconds PTT Ratio Sodium (136-145) mmol/L Potassium (3.5-5.1) mmol/L Chloride (98-107) mmol/L Carbon Dioxide (21-32) mmol/L Anion Gap (3-11) BUN (6-23) mg/dl Creatinine (0.6-1.4) mg/dl Est Cr Clr Drug Dosing Est GFR ( Amer) ml/min Est GFR (Non-Af Amer) ml/min BUN/Creatinine Ratio (10-20) Glucose (70-99(Fasting)) mg/dl Calcium (8.5-10.1) mg/dl Total Bilirubin (0.2-1.0) mg/dl AST (13-39) U/L ALT (7-52) U/L Alkaline Phosphatase (34-104) U/L Total Creatine Kinase (30-223) U/L Troponin I High Sens (0-20) pg/ml Total Protein (6.0-8.3) gm/dl Albumin (3.4-5.0) gm/dl Globulin (2.5-4.0) gm/dl Albumin/Globulin Ratio (0.9-2) Lipase (11-82) U/L SARS-CoV-2, RNA, NAAT NEGATIVE (NEGATIVE) Administered Medications Heparin Sodium/Dextrose (Heparin Sodium/Dextrose) 25,000 units in 500 mls @ 29 mls/hr IV .[id number] [facility]; Protocol Stop: 05/30/22 13:59 Last Admin: 04/30/22 15:07 Dose: 1,450 units/hr, 29 mls/hr Documented By: MATTHIAS Co-signed By: AMS Discontinued Medications Acetaminophen (Acetaminophen 500 Mg Tab) 1,000 mg PO NOW STA Stop: 04/30/22 11:57 Last Admin: 04/30/22 12:12 Dose: 1,000 mg Documented By: MATTHIAS Heparin Sodium/Dextrose (Heparin Iv Adult Wt-Based Standard *No* Bolus Protocol) 1 each IV ONE ONE; Protocol Stop: 04/30/22 13:33 Last Admin: 04/30/22 15:09 Dose: Not Given Documented By: MATTHIAS Sodium Chloride (Nss 1000ml) 500 mls @ 999 mls/hr IV .Q31M ONE Stop: 04/30/22 14:09 Last Infusion: 04/30/22 15:15 Dose: 0 mls/hr Documented By: RSKia Admin: 04/30/22 14:23 Dose: 999 mls/hr Documented By: MATTHIAS Ioversol (Optiray 320 500ml) 120 ml IV ONCE ONE Stop: 04/30/22 13:58 Last Admin: 04/30/22 13:57 Dose: 120 ml Documented By: VIVI Metoprolol Tartrate (Metoprolol Tartrate 1 Mg/Ml Vial) 5 mg IV NOW STA Stop: 04/30/22 16:16 Last Admin: 04/30/22 16:31 Dose: 5 mg Documented By: MARIA DEL CARMEN Morphine Sulfate (Morphine Sulfate 4 Mg/Ml 1 Ml Carp\Vial) 4 mg IV NOW STA Stop: 04/30/22 11:57 Last Admin: 04/30/22 12:13 Dose: 4 mg Documented By: MATTHIAS Morphine Sulfate (Morphine Sulfate 4 Mg/Ml 1 Ml Carp\Vial) 4 mg IV NOW STA Stop: 04/30/22 13:35 Last Admin: 04/30/22 14:23 Dose: 4 mg Documented By: MATTHIAS Ondansetron HCl (Ondansetron Inj 2 Mg/Ml 2 Ml Vial) 4 mg IV NOW STA Stop: 04/30/22 11:57 Last Admin: 04/30/22 12:12 Dose: 4 mg Documented By: MATTHIAS Imaging Data Radiologist's Impression: Lumbar Spine X-Ray 04/30/22 10:15 XR lumbar spine 2-3V CLINICAL HISTORY: Lumbar spine pain. COMPARISON STUDY: No previous studies for comparison. FINDINGS: There are 6 mm anterolisthesis of L5 on S1. There are equivocal bilateral L5 pars defects. No lumbar spine fracture is present. No osseous lesion is noted. There is moderate multilevel facet arthrosis. Mild multilevel endplate osteophytosis is noted. Disc spaces are preserved. Bowel gas pattern is normal. IMPRESSION: 1. No lumbar spine fracture or subluxation. 2. Moderate multilevel facet arthrosis and mild degenerative disc disease within the lumbar spine. 3. Grade one anterolisthesis of L5 on S1. Equivocal bilateral L5 pars defects. ACT 112: Negative or not required by law. Electronically signed by: Dami Gongora M.D. 04/30/2022 11:03 AM Venous Doppler Study 04/30/22 10:15 LEFT LOWER EXTREMITY VENOUS DOPPLER HISTORY: Left lower extremity pain. COMPARISON STUDY: None. FINDINGS: There is normal compressibility, flow, and augmentation within the left lower extremity deep venous system. Of note, there is low volume arterial flow within the left common femoral artery with occlusion of the superficial femoral and profundus femoral arteries. There is monophasic flow seen within the popliteal artery likely due to collaterals. IMPRESSION: 1. No DVT within the left lower extremity. 2. Occluded left superficial femoral and profundus femoral arteries with low volume flow within the left common femoral artery and monophasic flow within the left popliteal artery. ACT 112: Negative or not required by law. Electronically signed by: Aris Clayton M.D. 04/30/2022 1:16 PM Chest X-Ray 04/30/22 10:16 SINGLE VIEW CHEST CLINICAL HISTORY: Atypical chest pain FINDINGS: An AP, portable, upright chest radiograph is compared to study dated 01/01/2022. A 2-lead cardiac ICD is unchanged in position and partially obscures the left mid chest. The patient is status post midline sternotomy. The heart is markedly enlarged. Atherosclerotic calcification of the thoracic aorta. There is pulmonary vascular congestion. Chronic interstitial thickening is similar to previous. Scarring/atelectasis is noted at the lung bases. The lungs and pleural spaces are otherwise clear. No pneumothorax is seen. The skeletal structures are osteopenic. The bony thorax is grossly intact. IMPRESSION: 1. Cardiomegaly and AICD with mild pulmonary vascular congestion. 2. No airspace consolidation or large pleural effusion is identified. ACT 112: Negative or not required by law. Electronically signed by: Weston Olivo M.D. 04/30/2022 10:36 AM Aorta w/Runoff CTA 04/30/22 13:35 CT ang AA runof w inc wo ifdon HISTORY: 71 years-old Male lle pain . Acute pain of the left inguinal tissues COMPARISON: Duplex venous Doppler study of same day TECHNIQUE: CTA of the chest, abdomen and pelvis was obtained with lower extremity runoff. 3-D coronal and sagittal MIPS were obtained from the axial data set and were submitted for review. All measurements were obtained according to NASCET criteria. FINDINGS: CTA: Marked cardiomegaly. Prior median sternotomy with left subclavian pacer. No pericardial effusion. The upper abdominal aorta at the level of the diaphragmatic hiatus measures 3.6 x 3.7 cm. The distal abdominal aorta is normal in caliber. There is moderate atherosclerosis of the aorta and branch vessels. Fusiform dilation of the celiac trunk measures up to 1.6 cm transversely. The superior mesenteric artery is widely patent. There is mild stenosis at the origin of the inferior mesenteric artery. Renal arteries are patent. There are two accessory left-sided renal arteries. RIGHT LOWER EXTREMITY: Moderate atherosclerosis. There is patency of the common, external and internal iliac arteries. Mild narrowing of less than 50% involving the common femoral artery. There is occlusion of the proximal profunda femoris artery with distal reconstitution of flow. There is high-grade greater than 70% stenosis with areas of occlusion throughout the majority of the superficial femoral artery. A few minimal areas of trickle flow noted within the mid to distal aspects of the artery. There is also occlusion of the popliteal artery and tibioperoneal trunk with multifocal areas of high-grade stenoses versus occlusion throughout the anterior posterior tibial arteries. Multifocal high-grade stenoses throughout the peroneal artery. Only flow within the peroneal artery is visualized at the level of the ankle. LEFT LOWER EXTREMITY: Moderate atherosclerosis. There is occlusion of the common and external iliac arteries. Reconstitution of flow within the left internal iliac artery with multifocal areas of high-grade stenoses involving the distal branches. Reconstitution of flow within the common femoral artery. Patent profunda femoris artery. There is occlusion involving the majority of the superficial femoral artery with minimal flow seen within the distal vessel. High-grade stenosis with near occlusion of the popliteal artery. Only minimal flow within the tibioperoneal trunk without significant flow identified within the anterior tib ial, posterior tibial or peroneal arteries. CT ABDOMEN/PELVIS: Bronchial wall thickening with mucous plugging. Intralobular septal thickening. 4 mm subpleural solid nodule of the posterior basal segment left lower lobe. Trace right pleural effusion. No pneumatosis or pneumoperitoneum. Study is mildly degraded by respiratory motion artifact. Unremarkable spleen, moderately atrophic pancreas and adrenal glands. Distended gallbladder with mild wall thickening. Questioned layering sludge versus cholelithiasis. No biliary ductal dilation. Unremarkable liver. 3.9 cm cyst of the superior pole left kidney. There is mild nonspecific bila teral perinephric stranding. No hydronephrosis. Prostamegaly. Urinary bladder wall thickening with partial distention. No lymphadenopathy identified. No bowel obstruction or bowel wall thickening. Colonic diverticulosis. 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 Chronic L5 pars defects with grade 1 anterolisthesis. Degenerative changes of the spine, pelvis, hips and lower extremities. IMPRESSION: 1. 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 2. Fusiform dilation of the aorta at the level of the diaphragmatic hiatus, 3.7 cm without dissection. 3. 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 4. Gallbladder distention with sludge versus cholelithiasis. 5. Additional findings as above. ACT 112: Negative or not required by law. The above report was generated using voice recognition software. It may contain grammatical, syntax or spelling errors. Electronically signed by: Bertram Fuentes M.D. 04/30/2022 2:[address] 04/30/22 15:[address] DOSE: 614.27 mGy.cm HISTORY: Follow-up chronic subdural hematoma TECHNIQUE: Multiaxial CT images of the head were performed without the use of intravenous contrast. Automated exposure control was utilized for this study. A dose lowering technique was utilized adhering to the principles of ALARA. Comparison: Head CT 09/03/2020. Findings: The paranasal sinuses and mastoid air cells are clear. Interval postoperative changes consistent with bilateral frontal craniotomies. No calvarial fractures. There is contrast within the brain the recent abdomen and pelvis CTA. Therefore, this results in suboptimal evaluation for a small intracranial hematoma. The low-density bilateral subdural collections seen on the prior study have essentially resolved in the interval. Mild atrophy and microvascular ischemic changes are noted. Subtle increased density within the right frontoparietal junction on image 21. This may be related to the postcontrast changes. Trace subarachnoid hemorrhage would also be considered in differential diagnosis. Impression: 1. Subtle small focus of increased density within the right frontoparietal junction. This may be related to the postcontrast changes. Trace subarachnoid hemorrhage could also have a similar appearance. Therefore, follow-up [address] recommended to ensure resolution. 2. Interval bilateral frontal craniotomies with resolution of the subdural collections seen on the prior study. ACT 112: Negative or not required by law. Electronically signed by: Aris Clayton M.D. 04/30/2022 4:17 PM Discharge Plan Visit Data Chief Complaint: Leg Injury/Pain Stated Complaint: L GROIN PAIN ED Provider: Migue Elliott Discharge Problem: Acute occlusion of artery, Acute occlusion of aortoiliac artery, Atrial fibrillation with rapid ventricular response Patient Disposition: Being Evaluated by Hospitalist Forms Stand Alone Forms: My [facility] Prescriptions Prescriptions: No Action furosemide 20 mg tablet 10 mg PO DAILY PRN (Reason: edema) Qty: 90 3RF metformin 500 mg tablet 500 mg PO BID Qty: 180 3RF allopurinol 100 mg tablet 100 mg PO DAILY metoprolol succinate 50 mg tablet extended release 24 hr 100 mg PO QAM 30 Days Qty: 60 2RF Rx Instructions: will take with 25 mg metoprolol succinate 25 mg tablet extended release 24 hr 25 mg PO DAILY Qty: 30 2RF Rx Instructions: take with the 50 mg atorvastatin 80 mg tablet 80 mg PO QPM Rx Instructions: TAKES IN AFTERNOON clopidogrel 75 mg tablet 75 mg PO QAM spironolactone 25 mg tablet 25 mg PO QPM escitalopram oxalate [Lexapro] 10 mg tablet 10 mg PO HS aspirin 81 mg Tablet,Delayed Release (Dr/Ec) 81 mg PO DAILY ropinirole 0.25 mg tablet 0.5 mg PO HS Rx Instructions: TAKES 1-2 HOURS PRIOR TO HS. Referrals Referrals: Nehemias Acosta DO [Primary Care Provider] -
--- NOTE | 2022-04-30 10:38 | XRay Report ---
SINGLE VIEW CHEST CLINICAL HISTORY: Atypical chest pain FINDINGS: An AP, portable, upright chest radiograph is compared to study dated 01/01/2022. A 2-lead ca rdiac ICD is unchanged in position and partially obscures the left mid chest. The patient is status p ost midline sternotomy. The heart is markedly enlarged. Atherosclerotic calcification of the thoracic aorta. There is pulmonary vascular congestion. Chronic interstitial thickening is similar to previou s. Scarring/atelectasis is noted at the lung bases. The lungs and pleural spaces are otherwise clear. No pneumothorax is seen. The skeletal structures are osteopenic. The bony thorax is grossly intact. IMPRESSION: 1. Cardiomegaly and AICD with mild pulmonary vascular congestion. 2. No airspace consolidation or large pleural effusion is identified. ACT 112: Negative or not required by law. Electronically signed by: Weston Olivo M.D. 04/30/2022 10:36 AM
--- NOTE | 2022-04-30 11:04 | XRay Report ---
XR lumbar spine 2-3V CLINICAL HISTORY: Lumbar spine pain. COMPARISON STUDY: No previous studies for comparison. FINDINGS: There are 6 mm anterolisthesis of L5 on S1. There are equivocal bilateral L5 pars defects. No lumbar spine fracture is present. No osseous lesion is noted. There is moderate multilevel facet a rthrosis. Mild multilevel endplate osteophytosis is noted. Disc spaces are preserved. Bowel gas patte rn is normal. IMPRESSION: 1. No lumbar spine fracture or subluxation. 2. Moderate multilevel facet arthrosis and mild degenerative disc disease within the lumbar spine. 3. Grade one anterolisthesis of L5 on S1. Equivocal bilateral L5 pars defects. ACT 112: Negative or not required by law. Electronically signed by: Dami Gongora M.D. 04/30/2022 11:03 AM
[2022-04-30 11:32] LABS: Basophils # (auto) 0.06 K/uL (0-0.2); Basophils % (auto) 0.7 %; Eosinophils # (auto) 0.08 K/uL (0-0.50); Eosinophils % (auto) 0.9 %; Hematocrit (blood only) 47.7 % (40.1-51.0); Immature Granulocytes # (auto) 0.03 K/uL (0.00-0.02); Immature Granulocytes % (auto) 0.3 %; Lymphocytes % (auto) 19.7 %; Mean Corpuscular Hemoglobin 29.5 pg (25.0-34.0); Mean Corpuscular Hgb Conc 33.5 g/dL (32.0-36.0); Mean Corpuscular Volume 87.8 fL (80.0-100.0); Mean Platelet Volume 10.3 fL (9.4-12.4); Monocytes % (auto) 6.6 %; Neutrophils # (auto) 6.58 K/uL (1.4-6.5); Neutrophils % (auto) 71.8 %; Platelet Count 206 K/uL (130-400); RDW Coefficient of Variation 14.8 % (11.5-14.5); RDW Standard Deviation 47.5 fL (36.4-46.3); Red Blood Count 5.43 M/uL (4.63-6.08); White Blood Count 9.15 K/ul (4.8-10.8)
[2022-04-30 11:45] LABS: INR 1.2 (0.9-1.1); Partial Thromboplastin Time 26.2 Seconds (21.0-31.0); Prothrombin Time 13.1 Seconds (9.0-12.0)
[2022-04-30] MEDS ORDERED: MoRPHine SULFATE 4 MG/ML 1 ML CARP\\VIAL IV STA ×2 (11:56→13:34)
[2022-04-30] MEDS ORDERED: ONDANSETRON INJ 2 MG/ML 2 ML VIAL IV STA (11:56)
[2022-04-30] MEDS ORDERED: ACETAMINOPHEN 500 MG TAB PO STA (11:56)
[2022-04-30 11:57] LABS: Troponin I High Sensitivity 18.5 pg/ml (0-20)
[2022-04-30 11:58] LABS: Alanine Aminotransferase 13 U/L (7-52); Albumin Globulin Ratio 1.3 (0.9-2); Alkaline Phosphatase 97 U/L (34-104); Anion Gap 10 (3-11); Aspartate Aminotransferase 15 U/L (13-39); BUN Creatinine Ratio 21.3 (10-20); Bilirubin,Total 0.9 mg/dl (0.2-1.0); Blood Urea Nitrogen 19 mg/dl (6-23); Calcium 9.3 mg/dl (8.5-10.1); Carbon Dioxide 25 mmol/L (21-32); Chloride 104 mmol/L (98-107); Creatine Kinase 223 U/L (30-223); Est GFR (African American) 98.3 ml/min; Est GFR (Non-African American) 84.8 ml/min; Glucose 145 mg/dl (70-99(Fasting)); Lipase 8 U/L (11-82); Potassium 4.2 mmol/L (3.5-5.1); Sodium 139 mmol/L (136-145)
--- NOTE | 2022-04-30 12:26 | Electrocardiogram Report ---
Test Reason : Blood Pressure : / mmHG Vent. Rate : 130 BPM Atrial Rate : 136 BPM P-R Int : 000 ms QRS Dur : 102 ms QT Int : 336 ms P-R-T Axes : 000 -45 122 degrees QTc Int : 494 ms Suspect unspecified pacemaker failure Atrial fibrillation with rapid ventricular response with occasional ventricular-paced complexes Left anterior fascicular block Left ventricular hypertrophy with repolarization abnormality Old Anteroseptal infarct Abnormal ECG When compared with ECG of 01-JAN-2022 00:55, Vent. rate has increased BY 11 BPM Confirmed by Gavin Renae ([id number]) on 04/30/2022 12:26:20 PM Referred By: REFERRED SELF Confirmed By:Gavin Renae
--- NOTE | 2022-04-30 13:17 | Ultrasound Report ---
LEFT LOWER EXTREMITY VENOUS DOPPLER HISTORY: Left lower extremity pain. COMPARISON STUDY: None. FINDINGS: There is normal compressibility, flow, and augmentation within the left lower extremity dat p venous system. Of note, there is low volume arterial flow within the left common femoral artery wit h occlusion of the superficial femoral and profundus femoral arteries. There is monophasic flow seen within the popliteal artery likely due to collaterals. IMPRESSION: 1. No DVT within the left lower extremity. 2. Occluded left superficial femoral and profundus femoral arteries with low volume flow within the l eft common femoral artery and monophasic flow within the left popliteal artery. ACT 112: Negative or not required by law. Electronically signed by: Aris Clayton M.D. 04/30/2022 1:16 PM
[2022-04-30] MEDS ORDERED: Heparin IV Adult Wt-Based Standard *NO* Bolus Protocol IV ONE (13:32)
[2022-04-30] MEDS ORDERED: MoRPHine SULFATE 4 MG/ML 1 ML CARP\\VIAL IV PRN (13:34)
[2022-04-30] MEDS ORDERED: SODIUM CHLORIDE 0.9% 1000ML 500 ML IV ONE (13:39)
[2022-04-30] MEDS ORDERED: OPTIRAY 320 500ml IV ONE (13:57)
[2022-04-30] MEDS ORDERED: HEPARIN SODIUM/DEXTROSE 25,000 UNITS/500 ML BAG IV SCH (14:00)
--- NOTE | 2022-04-30 14:59 | CT Scan Report ---
CT ang ARNOLDO meléndez davida usn HISTORY: 71 years-old Male lle pain . Acute pain of the left inguinal tissues COMPARISON: Duplex venous Doppler study of same day TECHNIQUE: CTA of the chest, abdomen and pelvis was obtained with lower extremity runoff. 3-D coronal and sagittal MIPS were obtained from the axial data set and were submitted for review. All measureme nts were obtained according to NASCET criteria. FINDINGS: CTA: Marked cardiomegaly. Prior median sternotomy with left subclavian pacer. No pericardial effusion. The upper abdominal aorta at the level of the diaphragmatic hiatus measures 3.6 x 3.7 cm. The distal abd ominal aorta is normal in caliber. There is moderate atherosclerosis of the aorta and branch vessels. Fusiform dilation of the celiac trunk measures up to 1.6 cm transversely. The superior mesenteric ar nelda is widely patent. There is mild stenosis at the origin of the inferior mesenteric artery. Renal arteries are patent. There are two accessory left-sided renal arteries. RIGHT LOWER EXTREMITY: Moderate atherosclerosis. There is patency of the common, external and internal iliac arteries. Mild narrowing of less than 50% involving the common femoral artery. There is occlusion of the proximal pr ofunda femoris artery with distal reconstitution of flow. There is high-grade greater than 70% stenos is with areas of occlusion throughout the majority of the superficial femoral artery. A few minimal a reas of trickle flow noted within the mid to distal aspects of the artery. There is also occlusion of the popliteal artery and tibioperoneal trunk with multifocal areas of high-grade stenoses versus occ lusion throughout the anterior posterior tibial arteries. Multifocal high-grade stenoses throughout t he peroneal artery. Only flow within the peroneal artery is visualized at the level of the ankle. LEFT LOWER EXTREMITY: Moderate atherosclerosis. There is occlusion of the common and external iliac arteries. Reconstitutio n of flow within the left internal iliac artery with multifocal areas of high-grade stenoses involvin g the distal branches. Reconstitution of flow within the common femoral artery. Patent profunda femor is artery. There is occlusion involving the majority of the superficial femoral artery with minimal f low seen within the distal vessel. High-grade stenosis with near occlusion of the popliteal artery. O nly minimal flow within the tibioperoneal trunk without significant flow identified within the anteri or tibial, posterior tibial or peroneal arteries. CT ABDOMEN/PELVIS: Bronchial wall thickening with mucous plugging. Intralobular septal thickening. 4 mm subpleural solid nodule of the posterior basal segment left lower lobe. Trace right pleural effusion. No pneumatosis or pneumoperitoneum. Study is mildly degraded by respiratory motion artifact. Unremarkable spleen, mo derately atrophic pancreas and adrenal glands. Distended gallbladder with mild wall thickening. Quest ioned layering sludge versus cholelithiasis. No biliary ductal dilation. Unremarkable liver. 3.9 cm cyst of the superior pole left kidney. There is mild nonspecific bilateral perinephric strandi ng. No hydronephrosis. Prostamegaly. Urinary bladder wall thickening with partial distention. No lymp hadenopathy identified. No bowel obstruction or bowel wall thickening. Colonic diverticulosis. Intramuscular lipoma of the le ft vastus lateralis, 4.1 cm. Chronic L5 pars defects with grade 1 anterolisthesis. Degenerative ball es of the spine, pelvis, hips and lower extremities. IMPRESSION: 1. Atherosclerotic vascular disease with multifocal arterial occlusion of the bilateral lower extremi ties which includes the left common and external iliac arteries with multifocal areas of occlusion an d high-grade stenosis throughout the bilateral superficial femoral and popliteal arteries and arterie s of the left greater than right lower legs. 2. Fusiform dilation of the aorta at the level of the diaphragmatic hiatus, 3.7 cm without dissection . 3. 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 4. Gallbladder distention with sludge versus cholelithiasis. 5. Additional findings as above. ACT 112: Negative or not required by law. The above report was generated using voice recognition software. It may contain grammatical, syntax o r spelling errors. Electronically signed by: Bertram Fuentes M.D. 04/30/2022 2:56 PM
[2022-04-30] MEDS ORDERED: METOPROLOL TARTRATE 1 MG/ML VIAL IV STA (16:15)
--- NOTE | 2022-04-30 16:19 | CT Scan Report ---
HEAD CT NONCONTRAST CT DOSE: 614.27 mGy.cm HISTORY: Follow-up chronic subdural hematoma TECHNIQUE: Multiaxial CT images of the head were performed without the use of intravenous contrast. A utomated exposure control was utilized for this study. A dose lowering technique was utilized adheri ng to the principles of ALARA. Comparison: Head CT 09/03/2020. Findings: The paranasal sinuses and mastoid air cells are clear. Interval postoperative changes consi stent with bilateral frontal craniotomies. No calvarial fractures. There is contrast within the brain the recent abdomen and pelvis CTA. Therefore, this results in suboptimal evaluation for a small intr acranial hematoma. The low-density bilateral subdural collections seen on the prior study have essent ially resolved in the interval. Mild atrophy and microvascular ischemic changes are noted. Subtle inc reased density within the right frontoparietal junction on image 21. This may be related to the postc ontrast changes. Trace subarachnoid hemorrhage would also be considered in differential diagnosis. Impression: 1. Subtle small focus of increased density within the right frontoparietal junction. This may be rela gilberto to the postcontrast changes. Trace subarachnoid hemorrhage could also have a similar appearance. Therefore, follow-up [address] recommended to ensure resolution. 2. Interval bilateral frontal craniotomies with resolution of the subdural collections seen on the pr ior study. ACT 112: Negative or not required by law. Electronically signed by: Aris Clayton M.D. 04/30/2022 4:17 PM
--- NOTE | 2022-04-30 17:12 | History & Physical Report ---
Date of Service April 30, 2022 Assessment & Plan (1) Acute occlusion of aortoiliac artery: Plan: 71 yo male with acute occulison of aortoiliac artery. Patient has history of atrial fibrillation. Has history of hemorrhagic stroke about 3 years ago. Patient had history of chronic subdural hematoma. heparin was initially started but then placed on hold. Awaiting ct scan. discussed with Dr. Sharp, and he is aware of he current situation. concern over subarachnoid hemorrhage, however, patient is not complaining of a headache. will need to hold heparin though if CT scan cannot rule out subarachnoid hemorrhage.\ (2) Atrial fibrillation with rapid ventricular response: Plan: HR is elevated between 100-130s. will increase beta roseanne. (3) Ischemic cardiomyopathy: Plan: Chronic HFrEF currently patient is not in acute HFrEF. will monitor. History of Present Illness Chief Complaint: left leg pain Primary Care Provider: Nehemias Acosta, DO 71 yo male with hsitory of atrial fibrillation and history of chronic subdural hematoma which is the reason as to why he is not on anticoagulation. Patient reports having left posterior thigh pain that began today. Prior to this, he was his normal self. Patient reports that his pain is mainly in his left posterior calf but it is now spreading to his left calf. Patient reports he is able to move his leg. Allergies Allergy/AdvReac Type Severity Reaction Status Date / Time No Known Allergies Allergy Verified 04/30/22 15:38 Home Medications Medication Instructions Recorded Confirmed Type aspirin 81 mg tablet,delayed 81 mg PO DAILY 09/03/20 04/30/22 History release furosemide 20 mg tablet 10 mg PO DAILY PRN edema #90 tabs 12/13/21 04/30/22 Rx metformin 500 mg tablet 500 mg PO BID #180 tabs 12/13/21 04/30/22 Rx atorvastatin 80 mg tablet 80 mg PO QPM 01/01/22 04/30/22 History clopidogrel 75 mg tablet 75 mg PO QAM 01/01/22 04/30/22 History escitalopram oxalate 10 mg tablet 10 mg PO HS 01/01/22 04/30/22 History (Lexapro) spironolactone 25 mg tablet 25 mg PO QPM 01/01/22 04/30/22 History allopurinol 100 mg tablet 100 mg PO DAILY 03/21/22 04/30/22 History metoprolol succinate 25 mg 25 mg PO DAILY #30 tabs 03/21/22 04/30/22 Rx tablet,extended release 24 hr metoprolol succinate 50 mg 100 mg PO QAM 30 days #60 tabs 03/21/22 04/30/22 Rx tablet,extended release 24 hr ropinirole 0.25 mg tablet 0.5 mg PO HS 04/30/22 04/30/22 History Past Med/Surg History Medical History Acute CVA (cerebrovascular accident) Atrial fibrillation with rapid ventricular response Elevated troponin Implantable cardioverter-defibrillator (ICD) discharge Surgical History H/O heart bypass surgery Family History Brother Diabetes Mother Hypertension Father Stroke Denies family history of Ovarian cancer Prostate cancer Myocardial infarction Breast cancer Colorectal cancer Social History Smoking Status: Never smoker Second Hand Exposure: No; Do You Dip or Chew Tobacco: No; Hx Alcohol Use: No Hx Substance Use: No Preferred Language: Cameroonian 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: 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 Beliefs That Will Affect Care: None Current Living Situation: Family Current Living Situation Comment: lives with son current occupational status: retired Other Information That Helps Us Care for You: No Feels Safe at Home: Yes Safety Concerns: Feels Safe At This Time Physical Activity Frequency: 1-2 Times per Week Seatbelt Use: always Assistive Devices: Glasses and Walker Review of Systems Constitutional: no fever and no sweats Eyes: no blind spots Ear, Nose, Mouth, Throat: no ear pain Respiratory: no cough Cardiovascular: no chest pain Gastrointestinal: no abdominal pain Genitourinary: no dysuria Musculoskeletal: no loss of height Integumentary: no acne Neurologic: no localized weakness Psychiatric: no behavioral changes Endocrine: no fatigue Hematologic / Lymphatic: no easy bleeding Allergy / Immunological: no GI upset with certain foods Physical Exam Constitutional: WD/WN, vitals as above Eyes: PERRL, conjunctivae normal, anicteric sclerae ENMT: external ear and nose normal, oropharynx normal Neck: trachea midline, no thyromegaly Respiratory: normal respiratory effort, lungs clear to auscultation Cardiovascular: RRR, no murmur, no edema Gastrointestinal (Abdomen): normal bowel sounds, soft, nontender, no hepatosplenomegaly Musculoskeletal: no cyanosis or clubbing, extremities motor strength 5/5 (left leg did not feel colder than his right, normal strength) Skin: no rashes, warm and dry Neurologic: PERRL, EOMI, accommodation nl, no face palsy, no dysarthria Psychiatric: A+Ox3, euthymic affect Lymphatic: no cervical or axillary lymphadenopathy Results & Data Results & Data ([facility]) Vital Signs (Past 12 Hours) Vital Signs Temp Pulse Pulse Resp BP BP Pulse Ox 04/30/22 16:34 108 H 18 121/89 94 04/30/22 16:31 119 H 121/89 04/30/22 14:00 122 H 20 147/105 H 93 04/30/22 11:19 128 H 24 164/111 H 94 04/30/22 10:16 114 H 18 98 04/30/22 10:08 36.6 C 114 H 18 164/111 H 98 O2 Del Method 04/30/22 16:34 Room Air 04/30/22 16:31 04/30/22 14:00 Room Air 04/30/22 11:19 04/30/22 10:16 Room Air 04/30/22 10:08 Room Air PG Care Time/CCT Total # of Minutes Spent Total Time Spent with Patient: Total time spent is greater than 50% in coordination of care (as documented) at patient's floor/unit and/or counseling patient: Coding Level of Care Code 29402 Initial Inpt Care Lvl 3 Diagnoses Acute occlusion of aortoiliac artery I74.09 Atrial fibrillation with rapid ventricular response I48.91 Ischemic cardiomyopathy I25.5
[2022-04-30] MEDS: MoRPHine SULFATE 4 MG/ML 1 ML CARP\\VIAL IV PRN (19:46)
[2022-04-30] MEDS: ATORVASTATIN 40 MG TAB PO SCH (19:59)
[2022-04-30] MEDS: rOPINIRole HCL 0.25 MG TABLET PO SCH (20:42)
[2022-04-30] MEDS: ESCITALOPRAM OXALATE 10 MG TAB PO SCH (20:42)
[2022-04-30] MEDS ORDERED: SPIRONOLACTONE 25 MG TAB PO SCH (21:00)
[2022-05-01] MEDS: MoRPHine SULFATE 4 MG/ML 1 ML CARP\\VIAL IV PRN ×2 (03:46→09:46)
[2022-05-01] MEDS ORDERED: ACETAMINOPHEN 1,000 MG/100 ML VIAL IV PRN (05:14)
[2022-05-01] MEDS: ACETAMINOPHEN 325 MG TAB PO PRN (05:29)
--- NOTE | 2022-05-01 06:27 | CT Scan Report ---
CT SCAN OF THE BRAIN WITHOUT IV CONTRAST CLINICAL HISTORY: Follow up possible subarachnoid hemorrhage COMPARISON STUDY: CT of the brain dated 04/30/2022. TECHNIQUE: Unenhanced axial CT scan of the brain is performed from the vertex to the skull base. A do se lowering technique was utilized adhering to the principles of ALARA. CT DOSE: 614.27 mGy.cm FINDINGS: Brain parenchyma: There is age-related involutional change noting [id number] subcortical and pe riventricular microangiopathic disease. There is likely trace subarachnoid hemorrhage again seen chao g a high right parietal sulcus. This is best seen on image #22. No additional foci of hemorrhage are suspected. There is no mass effect or evidence of acute territorial ischemia by CT criteria. There is a tiny chronic left posterior parietal lobe infarct. Anderson-white matter differentiation is preserved. No extra-axial fluid collection is seen. Ventricles, sulci, cisterns: Prominent secondary to involutional change. Intracranial vasculature: There is atherosclerotic calcification of the cavernous carotid and vertebr al arteries. Calvarium: There is evidence of bifrontal craniotomy. No destructive calvarial lesion is sitting. Sinuses and mastoids: The visualized paranasal sinuses are clear. The mastoid air cells are well pneu matized. Orbits: The bony orbits are grossly intact. IMPRESSION: 1. There is likely trace subacute subarachnoid hemorrhage again seen along a high right parietal lobe sulcus. This is less apparent than on yesterday's examination. 2. No additional foci of hemorrhage are suspected. There is no mass effect or evidence of acute sonali torial ischemia by CT criteria. 3. Chronic and postsurgical changes as above. ACT 112: Negative or not required by law. Electronically signed by: Weston Olivo M.D. 05/01/2022 6:25 AM
[2022-05-01 06:55] LABS: Basophils # (auto) 0.06 K/uL (0-0.2); Basophils % (auto) 0.6 %; Eosinophils # (auto) 0.06 K/uL (0-0.50); Eosinophils % (auto) 0.6 %; Hematocrit (blood only) 43.9 % (40.1-51.0); Hemoglobin 14.8 g/dl (14.0-18.0); Immature Granulocytes # (auto) 0.03 K/uL (0.00-0.02); Immature Granulocytes % (auto) 0.3 %; Lymphocytes # (auto) 2.04 K/uL (1.2-3.4); Lymphocytes % (auto) 20.2 %; Mean Corpuscular Hemoglobin 29.4 pg (25.0-34.0); Mean Corpuscular Hgb Conc 33.7 g/dL (32.0-36.0); Mean Corpuscular Volume 87.3 fL (80.0-100.0); Mean Platelet Volume 10.2 fL (9.4-12.4); Monocytes # (auto) 0.93 K/uL (0.24-0.82); Monocytes % (auto) 9.2 %; Neutrophils # (auto) 6.99 K/uL (1.4-6.5); Neutrophils % (auto) 69.1 %; Platelet Count 196 K/uL (130-400); RDW Coefficient of Variation 14.9 % (11.5-14.5); RDW Standard Deviation 47.8 fL (36.4-46.3); Red Blood Count 5.03 M/uL (4.63-6.08); White Blood Count 10.11 K/ul (4.8-10.8)
[2022-05-01 07:29] LABS: Albumin Globulin Ratio 1.2 (0.9-2); Albumin Level 3.8 gm/dl (3.4-5.0); Bilirubin,Total 1.1 mg/dl (0.2-1.0); Calcium 8.9 mg/dl (8.5-10.1); Creatinine Clr Calc Pharmacy 108.4 ml/min; Est GFR (African American) 102.7 ml/min; Est GFR (Non-African American) 88.6 ml/min; Globulin 3.3 gm/dl (2.5-4.0); Potassium 4.4 mmol/L (3.5-5.1); Total Protein 7.1 gm/dl (6.0-8.3)
[2022-05-01] MEDS: ASPIRIN 81 MG ECTAB PO SCH (08:25)
[2022-05-01] MEDS: METOPROLOL SUCC 50MG EXT REL TAB PO SCH (08:26)
[2022-05-01] MEDS: allopurinoL 100 MG TAB PO SCH (08:26)
[2022-05-01] MEDS: CLOPIDOGREL BISULFATE 75 MG TAB PO SCH (08:26)
[2022-05-01] MEDS ORDERED: METOPROLOL SUCC 25MG EXT REL TAB PO SCH (09:00)
[2022-05-01] MEDS ORDERED: METOPROLOL SUCC 50MG EXT REL TAB PO SCH (09:00)
--- NOTE | 2022-05-01 11:55 | Hospitalist Progress Note ---
Date of Service May 01, 2022 Assessment & Plan (1) Acute occlusion of aortoiliac artery: Plan: 71 yo male with acute occulison of aortoiliac artery. Patient has history of atrial fibrillation. Has history of hemorrhagic stroke about 3 years ago. Patient had history of chronic subdural hematoma. heparin was initially started but then placed on hold. Awaiting ct scan. discussed with Dr. Rico, and he is aware of he current situation. concern over subarachnoid hemorrhage, however, patient is not complaining of a headache. will need to hold heparin though if CT scan cannot rule out subarachnoid hemorrhage. ON 05/01 Extremities appear colder today. And patient is now complaining of his being numb. Thankfully he is still able to move his leg. Informed Dr. Rico multiple times of the patients progression of his symptoms. (2) Atrial fibrillation with rapid ventricular response: Plan: HR is elevated between 100-130s. will increase beta roseanne. (3) Ischemic cardiomyopathy: Plan: Chronic HFrEF currently patient is not in acute HFrEF. will monitor. Admission and Anticipated Discharge Date Admission Date: April 30, 2022 Subjective 71 yo male reports his legs is more numb and it is more cold today. Review of Systems Review of Systems: All systems reviewed & are unremarkable except as noted in HPI & below Physical Exam Constitutional: WD/WN, vitals as above Eyes: PERRL, conjunctivae normal, anicteric sclerae ENMT: external ear and nose normal, oropharynx normal Neck: trachea midline, no thyromegaly Respiratory: normal respiratory effort, lungs clear to auscultation Cardiovascular: RRR, no murmur, no edema Gastrointestinal (Abdomen): normal bowel sounds, soft, nontender, no hepatosplenomegaly Musculoskeletal: no cyanosis or clubbing, extremities motor strength 5/5 (left leg did not feel colder than his right, normal strength) Skin: no rashes, warm and dry Neurologic: PERRL, EOMI, accommodation nl, no face palsy, no dysarthria Psychiatric: A+Ox3, euthymic affect Lymphatic: no cervical or axillary lymphadenopathy Results & Data Results & Data ([facility]) Vital Signs (Past 12 Hours) Vital Signs Temp Pulse Pulse Resp BP Pulse Ox O2 Del Method 05/01/22 10:44 37.2 C 76 17 104/77 93 Room Air 05/01/22 10:23 116 H 05/01/22 08:06 36.6 C 114 H 17 115/90 94 Room Air 05/01/22 03:25 36.5 C 101 H 19 115/93 95 Room Air PG Care Time/CCT Total # of Minutes Spent Total Time Spent with Patient: Total time spent is greater than 50% in coordination of care (as documented) at patient's floor/unit and/or counseling patient: Coding Level of Care Code 12624 Subseq Hosp Care Lvl 3 Diagnoses Acute occlusion of aortoiliac artery I74.09 Atrial fibrillation with rapid ventricular response I48.91 Ischemic cardiomyopathy I25.5 Time Spent (min) 35
--- NOTE | 2022-05-01 12:03 | Cardiology Consultation ---
Date of Consultation May 01, 2022 Assessment & Plan (1) Acute occlusion of aortoiliac artery: (2) Atrial fibrillation with rapid ventricular response: (3) CAD (coronary artery disease): (4) Ischemic cardiomyopathy: (5) AICD (automatic cardioverter/defibrillator) present: (6) Hx of subdural hematoma: Plan 71-year-old man with ischemic cardiomyopathy (EF 15 to 20%), status post CABG 2018 which included a left atrial appendage exclusion procedure, who has had several cerebral events (subdural hematoma and more recent medullary CVA) as well as a current head CT showing trace subacute subarachnoid hemorrhage who is admitted with aortoiliac occlusion. His atrial fibrillation is likely permanent, at the time of his hospitalization several months ago he had been in atrial fibrillation for months with borderline rate control (100-110 bpm as his baseline). Currently, his rate remains suboptimally controlled, would recommend aggressive upward titration of his metoprolol since bradycardia is not a concern (he has an ICD with pacemaker). Would discontinue other vasoactive medications (spironolactone) in order to allow maximizing his beta-roseanne while reducing the risk of hypotension. If low BP becomes an issue, could add digoxin to his regimen. Anticoagulation is obviously a difficult issue, given contraindications with his intracranial events. Etiology of thrombus is uncertain, since he had a prior left atrial appendage exclusion procedure it would seem less likely that his atrial fibrillation is a contributing factor. Given his severely reduced left ventricular systolic function, he could have a low flow state with development of an apical left ventricular thrombus. Would recommend obtaining echocardiogram to evaluate for this (although thrombus may have embolized, it would be helpful to see if there is a low flow state or apical aneurysm which would place him at high risk for recurrent left ventricular thrombus). In the near term, defer to vascular surgery regarding the risk/benefit ratio of temporary heparin use post thrombectomy (if this path is pursued). Longer-term, assessing risk/benefit ratio for anticoagulation should be guided by a more formal neurosurgical assessment of his intracranial bleeding risk weighed against any evidence for likely recurrence of thrombus (such as a left ventricular apical aneurysm or low flow state). Cardiology will follow along while he is inpatient. For follow-up after discharge, he has a physical security specialist at [facility]. 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 Due to his prior subdural hematoma and left atrial appendage exclusion procedure he is not chronically anticoagulated. 2 head CTs performed since admission showed trace subacute subarachnoid hemorrhage high right parietal lobe sulcus. He was briefly on heparin but this was stopped due to concerns regarding the risk of intracranial bleeding. His rhythm on admission is atrial fibrillation and telemetry overnight shows a ventricular rate of 110-140 bpm. Of note, he was seen December 2021 for multiple ICD discharges which occurred due to atrial fibrillation at rates of greater than 180 bpm, his metoprolol was increased to 150 mg daily at that time and his ICD was reprogrammed to a detection rate of 195 bpm. ICD interrogation during that hospitalization showed that he had been in atrial fibrillation for 3 to 4 months with a ventricular rate of 100-110 bpm chronically. At the time of my evaluation this morning, he complained of some left leg discomfort, he denied any chest pain, dyspnea, subjective palpitations, or lightheadedness. Allergies Allergy/AdvReac Type Severity Reaction Status Date / Time No Known Allergies Allergy Verified 04/30/22 15:38 Home Medications Medication Instructions Recorded Confirmed Type aspirin 81 mg tablet,delayed 81 mg PO DAILY 09/03/20 04/30/22 History release furosemide 20 mg tablet 10 mg PO DAILY PRN edema #90 tabs 12/13/21 04/30/22 Rx metformin 500 mg tablet 500 mg PO BID #180 tabs 12/13/21 04/30/22 Rx atorvastatin 80 mg tablet 80 mg PO QPM 01/01/22 04/30/22 History clopidogrel 75 mg tablet 75 mg PO QAM 01/01/22 04/30/22 History escitalopram oxalate 10 mg tablet 10 mg PO HS 01/01/22 04/30/22 History (Lexapro) spironolactone 25 mg tablet 25 mg PO QPM 01/01/22 04/30/22 History allopurinol 100 mg tablet 100 mg PO DAILY 03/21/22 04/30/22 History metoprolol succinate 25 mg 25 mg PO DAILY #30 tabs 03/21/22 04/30/22 Rx tablet,extended release 24 hr metoprolol succinate 50 mg 100 mg PO QAM 30 days #60 tabs 03/21/22 04/30/22 Rx tablet,extended release 24 hr ropinirole 0.25 mg tablet 0.5 mg PO HS 04/30/22 04/30/22 History Patient History Medical History Acute CVA (cerebrovascular accident) Atrial fibrillation with rapid ventricular response Elevated troponin Implantable cardioverter-defibrillator (ICD) discharge Surgical History H/O heart bypass surgery Family History Brother Diabetes Mother Hypertension Father Stroke Denies family history of Ovarian cancer Prostate cancer Myocardial infarction Breast cancer Colorectal cancer Social History Smoking Status: Never smoker Second Hand Exposure: No; Do You Dip or Chew Tobacco: No; Hx Alcohol Use: No Hx Substance Use: No Preferred Language: Faroese 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: Effective Certified Physical Therapist Assistant Required: No Beliefs That Will Affect Care: None Current Living Situation: Family Current Living Situation Comment: lives with son current occupational status: retired Other Information That Helps Us Care for You: No Feels Safe at Home: Yes Safety Concerns: Feels Safe At This Time Physical Activity Frequency: 1-2 Times per Week Seatbelt Use: always Assistive Devices: Glasses and Walker Physical Exam Physical Exam: Anxious but not acutely distressed. Afebrile. BP low normal (104/77 mmHg) Pulse 100 bpm and irregular Skin: no ecchymoses or generalized lesions. HEENT: unremarkable. Neck: Jugular venous pulse at the clavicle, no obvious carotid bruits. Lungs: clear bilaterally. Cardiac: Irregular/slightly tachycardic rhythm regular, faint heart tones, no obvious murmur. Abdomen: benign. Extremities: No edema, lower extremity pulses nonpalpable, left leg cold, right leg cool. Neurologic: normal affect and conversation, nonfocal. Results & Data ([facility]) Laboratory Results Normal electrolytes, BUN 20, creatinine 0.8. Diagnostic Findings ECG on admission showed atrial fibrillation with rapid ventricular rate of 130 bpm, left anterior fascicular block, LVH with repolarization abnormality and an old anteroseptal infarct. Compared with 01/01/2022 study, ventricular rate increased by 11 bpm, otherwise no significant change. Chest x-ray showed cardiomegaly with ICD and mild pulmonary vascular congestion. Left lower extremity Doppler showed occluded left superficial femoral and profundus femoral arteries with no DVT. Aortic CT with runoff showed multiple arterial occlusions bilateral lower extremities. PG Care Time/CCT Total # of Minutes Spent Total Time Spent with Patient: Total time spent is greater than 50% in coordination of care (as documented) at patient's floor/unit and/or counseling patient: Coding Level of Care Code 93890 Inpt Consult Level 4 Diagnoses Acute occlusion of aortoiliac artery I74.09 Atrial fibrillation with rapid ventricular response I48.91 CAD (coronary artery disease) I25.10 Ischemic cardiomyopathy I25.5 AICD (automatic cardioverter/defibrillator) present Z95.810 Hx of subdural hematoma Z86.79
[2022-05-01] MEDS ORDERED: ceFAZolin 2000MG 2,000 MG/15 ML SYR IV ONE (12:43)
[2022-05-01] MEDS ORDERED: LIDOCAINE 1% LOCAL 20 ML VIAL ONE (12:59)
[2022-05-01] MEDS ORDERED: ceFAZolin 330 MG/ML 1 GM VIAL ONE (12:59)
[2022-05-01] MEDS ORDERED: THROMBIN FOR SOLN 20000 UNIT KIT ONE (12:59)
[2022-05-01] MEDS ORDERED: GELATIN SPONGE SZ 100 ONE (12:59)
[2022-05-01] MEDS ORDERED: PAPAVERINE HCL INJ 30 MG/ML 2 ML VIAL ONE (12:59)
[2022-05-01] MEDS ORDERED: BUPIVACAINE 0.5 % 5 MG/1 ML MPF 30ML VIAL ONE (12:59)
--- NOTE | 2022-05-01 13:04 | Consultation ---
Date of Consultation May 01, 2022 Assessment & Plan (1) Acute occlusion of aortoiliac artery: This point we recommend thrombectomy of the left lower extremity and iliac. The patient and her daughter understands the risk option benefits agrees to go with this procedure. This to be done as an emergent basis today. Thank you very much for letting us participate in the care of this patient. History of Present Illness Reason for Consultation: Left lower extremity pain and numbness Attending Physician: Michele Javier History of Present Illness This is a 71-year-old gentleman who presented yesterday with acute onset of numbness and discomfort of his left lower extremity. He had no complaints of claudication prior to this. He did walk long distances without any difficulty prior to this. He has had a cardiac bypass in the past as well as an ICD placement. He had his stroke approximately 6 months ago with a residual area on CAT scan suggestive of old subarachnoid hemorrhage. This made intravenous anticoagulation since his hospital admission contraindicated. He had a CT angiogram which showed a left iliac artery occlusion as well as a superficial femoral artery and infrapopliteal artery occlusions. Allergies Allergy/AdvReac Type Severity Reaction Status Date / Time No Known Allergies Allergy Verified 04/30/22 15:38 Home Medications Medication Instructions Recorded Confirmed Type aspirin 81 mg tablet,delayed 81 mg PO DAILY 09/03/20 04/30/22 History release furosemide 20 mg tablet 10 mg PO DAILY PRN edema #90 tabs 12/13/21 04/30/22 Rx metformin 500 mg tablet 500 mg PO BID #180 tabs 12/13/21 04/30/22 Rx atorvastatin 80 mg tablet 80 mg PO QPM 01/01/22 04/30/22 History clopidogrel 75 mg tablet 75 mg PO QAM 01/01/22 04/30/22 History escitalopram oxalate 10 mg tablet 10 mg PO HS 01/01/22 04/30/22 History (Lexapro) spironolactone 25 mg tablet 25 mg PO QPM 01/01/22 04/30/22 History allopurinol 100 mg tablet 100 mg PO DAILY 03/21/22 04/30/22 History metoprolol succinate 25 mg 25 mg PO DAILY #30 tabs 03/21/22 04/30/22 Rx tablet,extended release 24 hr metoprolol succinate 50 mg 100 mg PO QAM 30 days #60 tabs 03/21/22 04/30/22 Rx tablet,extended release 24 hr ropinirole 0.25 mg tablet 0.5 mg PO HS 04/30/22 04/30/22 History Patient History Medical History Acute CVA (cerebrovascular accident) Atrial fibrillation with rapid ventricular response Elevated troponin Implantable cardioverter-defibrillator (ICD) discharge Surgical History H/O heart bypass surgery Family History Brother Diabetes Mother Hypertension Father Stroke Denies family history of Ovarian cancer Prostate cancer Myocardial infarction Breast cancer Colorectal cancer Social History Smoking Status: Never smoker Second Hand Exposure: No; Do You Dip or Chew Tobacco: No; Hx Alcohol Use: No Hx Substance Use: No Preferred Language: Djiboutian 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: Effective Senior Agricultural Assistant Required: No Beliefs That Will Affect Care: None Current Living Situation: Family Current Living Situation Comment: lives with son current occupational status: retired Other Information That Helps Us Care for You: No Feels Safe at Home: Yes Safety Concerns: Feels Safe At This Time Physical Activity Frequency: 1-2 Times per Week Seatbelt Use: always Assistive Devices: Glasses and Walker Review of Systems Review of Systems: All systems reviewed & are unremarkable except as noted in HPI & below Physical Exam Constitutional: WD/WN, vitals as above Respiratory: normal respiratory effort, lungs clear to auscultation Cardiovascular: Rate/Rhythm: + tachycardic and + irregularly irregular Extremities: normal capillary refill (Decreased in both lower extremities worse on the left than the right.) There is decreased Doppler signals heard in the right foot there is no Doppler signals heard in the left. There is pallor present of the left foot. Gastrointestinal (Abdomen): Inspection/Auscultation: abdomen normal to i nspection Percussion/Palpation: abdomen soft; abdomen nontender Neurologic: CN's II-XI intact bilaterally and moves all extremities He has some mild slight decrease sensation of the left foot. Psychiatric: Orientation: alert and oriented x 3 Results & Data ([facility]) Vital Signs (Past 12 Hours) Vital Signs Temp Pulse Pulse Resp BP Pulse Ox O2 Del Method 05/01/22 10:44 37.2 C 76 17 104/77 93 Room Air 05/01/22 10:23 116 H 05/01/22 08:06 36.6 C 114 H 17 115/90 94 Room Air 05/01/22 03:25 36.5 C 101 H 19 115/93 95 Room Air
[2022-05-01] MEDS ORDERED: ALBUMIN HUMAN 5% 12.5 GM/250 ML VIAL IV ONE (13:07)
[2022-05-01] MEDS ORDERED: SUGAMMADEX SODIUM 200 MG/2 ML VIAL IV ONE (13:07)
[2022-05-01] MEDS ORDERED: ETOMIDATE 2 MG/ML 20 ML VIAL IV ONE (13:09)
[2022-05-01] MEDS ORDERED: ROCURONIUM BROMIDE 10 MG/ML 5 ML VIAL IV ONE (13:09)
[2022-05-01] MEDS ORDERED: fentaNYL citrate 100 MCG/2 ML VIAL ONE (13:09)
[2022-05-01] MEDS ORDERED: LIDOCAINE 2% MPF LOCAL 5 ML VIAL INFIL ONE (13:09)
[2022-05-01] MEDS ORDERED: ATROPINE SULFATE 0.1 MG/ML 10ML SYR IV PRN (13:40)
[2022-05-01] MEDS ORDERED: ePHEDrine sulfate 50 MG/ML AMP IV PRN (13:40)
[2022-05-01] MEDS ORDERED: fentaNYL citrate 100 MCG/2 ML VIAL IV PRN (13:40)
[2022-05-01] MEDS ORDERED: HYDROmorphone INJ 2 MG/ML SYR/VIAL IV PRN (13:40)
[2022-05-01] MEDS ORDERED: ONDANSETRON INJ 2 MG/ML 2 ML VIAL IV PRN (13:40)
--- NOTE | 2022-05-01 13:40 | Anesthesiology Consultation ---
Date of Service May 01, 2022 Assessment & Plan ASA [id number] Proposed Anesthesia Anesthesia Type: General Risk / Benefits Reviewed With: PT / POA / Parent / Guardian, Accepts Plan and Informed Consent Obtained History Surgery Operation Date: 05/01/22 13:05 Proposed Procedures p Thrombectomy Left Iliac , Left Lower Extremity Possible Endarterectomy - Aaron Sharp MD s Possible Left Lower Extermity Stenting - Aaron Sharp MD Height/Weight Height: 6 ft 2 in Weight: 109.7 kg Allergies Allergy/AdvReac Type Severity Reaction Status Date / Time No Known Allergies Allergy Verified 04/30/22 15:38 Medications Home Medications Medication Instructions Recorded Confirmed Last Taken aspirin 81 mg tablet,delayed 81 mg PO DAILY 09/03/20 04/30/22 04/29/22 release furosemide 20 mg tablet 10 mg PO DAILY PRN edema #90 tabs 12/13/21 04/30/22 Unknown metformin 500 mg tablet 500 mg PO BID #180 tabs 12/13/21 04/30/22 04/29/22 atorvastatin 80 mg tablet 80 mg PO QPM 01/01/22 04/30/22 04/29/22 clopidogrel 75 mg tablet 75 mg PO QAM 01/01/22 04/30/22 04/29/22 escitalopram oxalate 10 mg tablet 10 mg PO HS 01/01/22 04/30/22 04/29/22 (Lexapro) spironolactone 25 mg tablet 25 mg PO QPM 01/01/22 04/30/22 04/29/22 allopurinol 100 mg tablet 100 mg PO DAILY 03/21/22 04/30/22 04/29/22 metoprolol succinate 25 mg 25 mg PO DAILY #30 tabs 03/21/22 04/30/22 04/29/22 tablet,extended release 24 hr metoprolol succinate 50 mg 100 mg PO QAM 30 days #60 tabs 03/21/22 04/30/22 04/29/22 tablet,extended release 24 hr ropinirole 0.25 mg tablet 0.5 mg PO HS 04/30/22 04/30/22 04/29/22 Active Medications Generic Name Dose Route Start Last Admin Trade Name Freq PRN Reason Stop Dose Admin Acetaminophen 650 mg 05/01/22 05:15 05/01/22 05:29 Acetaminophen 325 Mg Tab PO 05/31/22 05:14 650 mg Q4H PRN Administration Pain or Fever Allopurinol 100 mg 05/01/22 09:00 05/01/22 08:26 Allopurinol 100 Mg Tab PO 05/31/22 08:59 100 mg DAILY IZAIAH Administration Aspirin 81 mg 05/01/22 09:00 05/01/22 08:25 Aspirin 81 Mg Ectab PO 05/31/22 08:59 81 mg DAILY IZAIAH Administration Atorvastatin Calcium 80 mg 04/30/22 20:00 04/30/22 19:59 Atorvastatin 40 Mg Tab PO 05/30/22 19:59 80 mg DAILY@1400 IZAIAH Administration Clopidogrel Bisulfate 75 mg 05/01/22 09:00 05/01/22 08:26 Clopidogrel Bisulfate 75 Mg Tab PO 05/31/22 08:59 75 mg QAM IZAIAH Administration Escitalopram Oxalate 10 mg 04/30/22 21:00 04/30/22 20:42 Escitalopram Oxalate 10 Mg Tab PO 05/30/22 20:59 10 mg HS IZAIAH Administration Heparin Sodium/Dextrose 25,000 units in 500 mls @ 0 mls/hr 04/30/22 14:00 04/30/22 16:50 Heparin Sodium/Dextrose IV 05/30/22 13:59 0 units/hr .Q0M IZAIAH 0 mls/hr Titration Protocol 0 UNITS/HR Metoprolol Succinate 150 mg 05/01/22 09:00 05/01/22 08:26 Metoprolol Succ 50mg Ext Rel Tab PO 05/31/22 08:59 150 mg QAM IZAIAH Administration Morphine Sulfate 4 mg 04/30/22 17:27 05/01/22 09:46 Morphine Sulfate 4 Mg/Ml 1 Ml Carp\Vial IV 05/14/22 17:26 4 mg Q6H PRN Administration Pain Ropinirole HCl 0.5 mg 04/30/22 20:00 04/30/22 20:42 Ropinirole Hcl 0.25 Mg Tablet PO 05/30/22 19:59 0.5 mg TODAY@2000 IZAIAH Administration Spironolactone 25 mg 04/30/22 21:00 04/30/22 19:58 Spironolactone 25 Mg Tab PO 05/30/22 20:59 25 mg QPM IZAIAH Administration NPO Date Last Intake of Fluids: 05/01/22 Time Last Intake of Fluids: 00:00 Date Last Intake of Solids: 05/01/22 Time Last Intake of Solids: 08:00 Last Intake of Solids Comment: banana Past Medical History Medical History Acute CVA (cerebrovascular accident) Atrial fibrillation with rapid ventricular response Elevated troponin Implantable cardioverter-defibrillator (ICD) discharge Exercise / Class Metabolic Activity III < 4 Walking/Shop/Light housework Past Family History Family History Brother Diabetes Mother Hypertension Father Stroke Denies family history of Ovarian cancer Prostate cancer Myocardial infarction Breast cancer Colorectal cancer Past Surgical History Surgical History H/O heart bypass surgery Past Anesthesia History No Hx of Anesthesia Complications and No Family Hx of Anesthesia Complications History of PONV No Hx of PONV and No Hx of Motion Sickness Social History Smoking Status: Never smoker Do You Dip or Chew Tobacco: No Hx Alcohol Use: No Hx Substance Use: No substance use type: does not use Review of Systems denies fever/cough/ colds/ chest pain/ SOB/ JOYCE denies JOYCE Physical Exam Vital Signs Last Vital Signs Temp 36.9 C 05/01/22 13:12 Pulse 119 H 05/01/22 13:32 Resp 22 05/01/22 13:32 BP 128/93 05/01/22 13:32 Pulse Ox 97 05/01/22 13:32 O2 Del Method 05/01/22 13:32 ENMT Mouth: no TMJ abnormality and no dentition abnormality Thyromental Distance: > or= 3.5 Finger Breadths Mallampati Class: IV Neck neck extension not limited Respiratory normal respiratory effort; no respiratory distress Auscultation: lungs clear to auscultation bilaterally Cardiovascular Rate/Rhythm: + tachycardic; + abnormal rhythm Neurologic moves all extremities Psychiatric Orientation: alert and oriented x 3 Testing Laboratory Results 05/01/22 06:39 05/01/22 06:39 PT 13.1 Seconds (9.0-12.0) H 04/30/22 11:00 INR 1.2 (0.9-1.1) H 04/30/22 11:00 APTT 26.2 Seconds (21.0-31.0) 04/30/22 11:00 05/01/22 05/01/22 11:38 07:40 POC Glucose 114 H 129 H
[2022-05-01] MEDS ORDERED: MIDAZOLAM HCL 1 MG/ML 2ML VIAL ONE (14:05)
[2022-05-01] MEDS ORDERED: METOPROLOL TARTRATE 1 MG/ML VIAL IV ONE ×2 (14:12→14:38)
[2022-05-01] MEDS ORDERED: ESMOLOL HCL INJ 10 MG/ML 10ML VIAL IV ONE (14:38)
[2022-05-01] MEDS ORDERED: diphenhydrAMINE 50 MG/ML VIAL ONE (14:49)
[2022-05-01] MEDS ORDERED: LIDOCAINE 2% 20 MG/ML 5 ML SYR IV ONE (14:49)
[2022-05-01] MEDS ORDERED: CLINDAMYCIN/D5W 600 MG/50 ML BAG IV ONE (15:00)
--- NOTE | 2022-05-01 15:09 | Anesthesiology Progress Note ---
Date of Service May 01, 2022 Anesthesia Post Procedure Vital Signs Vital Signs: Temp Pulse Pulse Pulse Resp BP BP 05/01/22 13:32 119 H 22 128/93 05/01/22 13:12 36.9 C 126 H 22 149/101 H 05/01/22 10:44 37.2 C 76 17 104/77 05/01/22 10:23 116 H 05/01/22 08:06 36.6 C 114 H 17 115/90 05/01/22 03:25 36.5 C 101 H 19 115/93 04/30/22 23:01 102 H 04/30/22 22:33 36.5 C 70 17 119/79 04/30/22 19:37 36.8 C 103 H 18 126/83 04/30/22 18:28 37.0 C 111 H 18 128/99 04/30/22 18:22 37.0 C 111 H 16 128/99 04/30/22 17:30 99 H 13 04/30/22 17:30 126/83 04/30/22 17:00 100 H 17 04/30/22 17:00 116/76 04/30/22 16:31 102 H 16 04/30/22 16:31 121/89 04/30/22 15:30 108 H 15 04/30/22 15:30 126/91 04/30/22 16:34 108 H 18 121/89 04/30/22 16:31 119 H 121/89 Pulse Ox O2 Del Method 05/01/22 13:32 97 Room Air 05/01/22 13:12 96 Room Air 05/01/22 10:44 93 Room Air 05/01/22 10:23 05/01/22 08:06 94 Room Air 05/01/22 03:25 95 Room Air 04/30/22 23:01 04/30/22 22:33 94 Room Air 04/30/22 19:37 93 Room Air 04/30/22 18:28 94 Room Air 04/30/22 18:22 94 Room Air 04/30/22 17:30 95 04/30/22 17:30 04/30/22 17:00 93 04/30/22 17:00 04/30/22 16:31 04/30/22 16:31 04/30/22 15:30 92 04/30/22 15:30 04/30/22 16:34 94 Room Air 04/30/22 16:31 Pain Intensity Left Groin: Pain Intensity: 0 Left Lower Leg: Pain Intensity: 6 Transfer of Care Handoff Completed per policy Notes Mental Status: alert / awake / arousable and participated in evaluation Patient Amnestic to Procedure: Yes Nausea / Vomiting: adequately controlled Pain: adequately controlled Airway Patency, RR, SpO2: stable & adequate BP & HR: see Notes below Hydration State: stable & adequate Anesthetic Complications: no major complications apparent and Pt Satisfied with anesthetic care Notes: During induction, esmolol and phenylepherine were dosed to lower HR. HR was in 110s. pt dropped his pressure and went to a HR of 210s. Pt ICD was not firing. BP was SBP ~60. Phenylepherine/ ephedrine given. Code called. pacer pads placed, but pt ICD fired four times. Pt HR droped to 160 and pressure improved. Pt noted at this time to have a diffuse rash across arms and chest. Pt given benadryl/solumedrol. Pt given metoprolol 10 mg given. pt HR was in 160 with a stable pressure. pt rash improved. Pt was placed on a phenyleperine drip. Pt reversed with suggamadex. pt was extubated and transfered to ICU. pt able to move all extremeties.
--- NOTE | 2022-05-01 15:22 | Communication Note ---
Date of Service: May 01, 2022 After anesthesia was administered, his heart rate increased to 190-210 range. The surgery was cancelled and patient sent to ICU for heart rate control. If controlled we can do his surgery at 1100 tomorrow.
--- NOTE | 2022-05-01 15:33 | Critical Care Consultation ---
Date of Consultation May 01, 2022 Assessment & Plan (1) Acute occlusion of aortoiliac artery: ICU Assessment and Plans Reason Critically Ill: 71yo Male with PMH afib, Hx hemorrhagic stroke 6 months ago, CAD, HLD, DM2, cardiomyopathy, ICD placement here for acute occlusion of left aortoiliac artery requiring thrombectomy with vascular surgery, admitted to ICU for control of atrial fibrillation. Neuro - [facility] ICU: NEGATIVE Sedation: none Analgesia: tylenol, morphine Hx Hemorrhagic stroke 6 months ago -CT head: There is likely trace subacute subarachnoid hemorrhage again seen along a high right parietal lobe sulcus. This is less apparent than on yesterday's examination. No additional foci of hemorrhage are suspected. There is no mass effect or evidence of acute territorial ischemia by CT criteria. Chronic and postsurgical changes as above. -continue ASA, plavix, lipitor Restless Leg Syndrome -continue ropinerole Depression -continue lexapro Cardiac - Acute Occlusion of left aortoiliac artery -CT and AA: Atherosclerotic vascular disease with multifocal arterial occlusion of the bilateral lower extremities which includes the left common and external iliac arteries with multifocal areas of occlusion and high-grade stenosis throughout the bilateral superficial femoral and popliteal arteries and arteries of the left greater than right lower legs.Fusiform dilation of the aorta at the level of the diaphragmatic hiatus, 3.7 cm without dissection. Fusiform dilation of the celiac trunk, 1.6 cm.Gallbladder distention with sludge versus cholelithiasis. -vascular surgery consulted given one dose ancef HR 180's on 05/01, thrombectomy rescheduled to tomorrow -continue heparin Atrial Fibrillation -currently on metoprolol Succinate 150mg PO daily with metoprolol tartrate 5mg IV q10min for rate control -cardiology consulted recommend echo aggressively up titrate metoprolol stop spironolactone for concern low BP consider digoxin if develop low BP Respiratory - no concerns at this time GI - NPO RENAL/LYTES - No significant electrolyte derangement. Replace lytes as needed. - No concerns at this time. ENDO - DM2 -last A1c 6.8 in january -glucose 120 -consider SSI HEME - Stable H&H. Will monitor for any drops in the setting of Heparin gtt ID - No concerns for infection at this point. INTEGUMENTARY - Skin clean dry intact LINES/IV ACCESS - PIVs intact. DVT PROPHYLAXIS - Heparin Thank you for allowing us to be part of this patient's care. Please refer to Dr. Quinones's documentation for any further recommendations. (2) Atrial fibrillation with rapid ventricular response: (3) CAD (coronary artery disease): (4) Hyperlipidemia: (5) Obesity, diabetes, and hypertension syndrome: (6) Gout: Supervising Physician Co-Signing Physician Notes Dr. Rich was resident physician during care of patient. I separately evaluated patient for bingham portions of the history and the exam. I was present during the critical portion of medical decision making, and I discussed the case with the resident. I generally agree with the findings and plan. I saw the patient in the OR upon request of Dr. Sharp. He was in atrial fibrillation with rapid ventricular response. There was definitive wheals consistent with a histamine mediated reaction. He was administered additional Benadryl and steroids in the operating room and I was able to observe the wheals resolving. We will continue resuscitation as he required vasoactive medication for blood pressure support as well as IV medications for rate control. He has a history of intracranial hemorrhage however he has acute aortic thrombus and requires systemic anticoagulation for life-threatening conditions which carries a higher risk than the possibility of intracranial hemorrhage, not withstanding we will observe for mental status changes. I have personally spent 55 minutes of critical care time in the direct management of this patient. This is a life/limb threatening event. This includes time spent evaluating patient, direct bedside care, chart review, placing orders, interpretation of diagnostic studies, discussion with consultants, patient, and/or family members regarding treatment decisions, as well as other required patient management activities. This time is exclusive of all separately billable procedures, and teaching time and separate from and in addition to any other critical care service time. History of Present Illness Reason for Consultation: Atrial Fibrillation with Acute Occlusion of Left Aortoiliac Artery Requesting Physician: Dr. Quinones Attending Physician: Michele Javier History of Present Illness 71yo Male with PMH afib, Hx hemorrhagic stroke 6 months ago, CAD, HLD, DM2, cardiomyopathy, ICD placement here for acute occlusion of left aortoiliac artery requiring thrombectomy with vascular surgery, admitted to ICU for control of atrial fibrillation. Patient was taken to OR with vascular surgery for thrombectomy, however after anesthesia his HR jumped to 180-200, surgery canceled patient transferred to ICU for HR control, surgery rescheduled to tomorrow 11am. At this time patient denies any pain loss of sensation loss of strength, headache dizziness nausea vomitting SOB CP abd pain. He is resting comfortably in bed, no questions at this time. Allergies Allergy/AdvReac Type Severity Reaction Status Date / Time No Known Allergies Allergy Verified 04/30/22 15:38 Home Medications Medication Instructions Recorded Confirmed Type aspirin 81 mg tablet,delayed 81 mg PO DAILY 09/03/20 04/30/22 History release furosemide 20 mg tablet 10 mg PO DAILY PRN edema #90 tabs 12/13/21 04/30/22 Rx metformin 500 mg tablet 500 mg PO BID #180 tabs 12/13/21 04/30/22 Rx atorvastatin 80 mg tablet 80 mg PO QPM 01/01/22 04/30/22 History clopidogrel 75 mg tablet 75 mg PO QAM 01/01/22 04/30/22 History escitalopram oxalate 10 mg tablet 10 mg PO HS 01/01/22 04/30/22 History (Lexapro) spironolactone 25 mg tablet 25 mg PO QPM 01/01/22 04/30/22 History allopurinol 100 mg tablet 100 mg PO DAILY 03/21/22 04/30/22 History metoprolol succinate 25 mg 25 mg PO DAILY #30 tabs 03/21/22 04/30/22 Rx tablet,extended release 24 hr metoprolol succinate 50 mg 100 mg PO QAM 30 days #60 tabs 03/21/22 04/30/22 Rx tablet,extended release 24 hr ropinirole 0.25 mg tablet 0.5 mg PO HS 04/30/22 04/30/22 History Patient History Medical History Acute CVA (cerebrovascular accident) Atrial fibrillation with rapid ventricular response Elevated troponin Implantable cardioverter-defibrillator (ICD) discharge Surgical History H/O heart bypass surgery Family History Brother Diabetes Mother Hypertension Father Stroke Denies family history of Ovarian cancer Prostate cancer Myocardial infarction Breast cancer Colorectal cancer Social History Smoking Status: Never smoker Second Hand Exposure: No; Do You Dip or Chew Tobacco: No; Hx Alcohol Use: No Hx Substance Use: No Preferred Language: Serbian 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: Effective Clinical Science Liaison Required: No Beliefs That Will Affect Care: None Current Living Situation: Family Current Living Situation Comment: lives with son current occupational status: retired Other Information That Helps Us Care for You: No Feels Safe at Home: Yes Safety Concerns: Feels Safe At This Time Physical Activity Frequency: 1-2 Times per Week Seatbelt Use: always Assistive Devices: Walker Review of Systems Review of Systems: All systems reviewed & are unremarkable except as noted in HPI & below Physical Exam Constitutional: well developed, well nourished, + obese, cooperative and comfortable Eyes: PERRL, conjunctivae normal, anicteric sclerae ENMT: external ear and nose normal, oropharynx normal Neck: trachea midline, no thyromegaly Respiratory: normal respiratory effort, lungs clear to auscultation Cardiovascular: Rate/Rhythm: + tachycardic and + irregularly irregular Gastrointestinal (Abdomen): Inspection/Auscultation: abdomen normal to inspection Percussion/Palpation: abdomen soft; abdomen nontender Skin: b/l lower extremities feet cold with purple mottling. legs are warm Neurologic: normal touch/pain/proprioception and moves all extremities Results & Data Results & Data ([facility]) Vital Signs (Past 12 Hours) Vital Signs Temp Pulse Pulse Resp BP Pulse Ox O2 Del Method 05/01/22 15:10 36.5 C 160 H 14 128/84 94 Oxymask 05/01/22 15:05 36.7 C 121 H 14 133/85 94 Oxymask 05/01/22 15:00 36.5 C 130 H 14 108/74 94 Oxymask 05/01/22 14:55 36.5 C 134 H 14 118/81 94 Oxymask 05/01/22 14:50 36.5 C 142 H 16 146/95 H 94 Oxymask 05/01/22 13:32 119 H 22 128/93 97 Room Air 05/01/22 13:12 36.9 C 126 H 22 149/101 H 96 Room Air 05/01/22 10:44 37.2 C 76 17 104/77 93 Room Air 05/01/22 10:23 116 H 05/01/22 08:06 36.6 C 114 H 17 115/90 94 Room Air O2 Flow Rate 05/01/22 15:10 8 05/01/22 15:05 8 05/01/22 15:00 8 05/01/22 14:55 8 05/01/22 14:50 8 05/01/22 13:32 05/01/22 13:12 05/01/22 10:44 05/01/22 10:23 05/01/22 08:06 Resident Activity Tracking Resident Involvement: Resident Care Provided Care Provided: Adult Hospital Medicine
[2022-05-01] MEDS: METOPROLOL TARTRATE 1 MG/ML VIAL IV PRN ×5 (15:40→19:32)
[2022-05-01] MEDS: ATORVASTATIN 40 MG TAB PO SCH (16:29)
--- NOTE | 2022-05-01 18:01 | Cardiology Progress Note ---
Date of Service May 01, 2022 Assessment & Plan (1) Acute occlusion of aortoiliac artery: (2) Atrial fibrillation with rapid ventricular response: (3) CAD (coronary artery disease): (4) Ischemic cardiomyopathy: (5) AICD (automatic cardioverter/defibrillator) present: (6) Hx of subdural hematoma: Plan See cardiology consultation from earlier regarding discussion of longer-term anticoagulation, agree with heparin at this point since risk of thrombus extension likely exceeds risk of intracranial bleeding. Obtain echocardiogram to rule out left ventricular low-flow state/apical aneurysm as potential thrombus source, since left atrial appendage was excluded during CABG. Once again, would more aggressively titrate metoprolol to achieve heart rate 100-120 bpm, bradycardia is not an issue because he has an ICD/pacemaker. Need to avoid rates in the 195 bpm range, which will trigger his ICD. If he does demonstrate hypoperfusion or more significant hypotension, could change to esmolol or use IV amiodarone as a rate control (rather than rhythm control) agent. Admission and Anticipated Discharge Date Admission Date: April 30, 2022 Subjective Thrombectomy aborted due to uncontrolled heart rate and labile BP. He is now on heparin and sedated postoperatively. BP low normal, heart rate continues to be tachycardic (140 bpm currently). Physical Exam Physical Exam: Lying quietly/sedated. BP 117/83 mmHg. Pulse 144 bpm and irregular. HEENT: Unremarkable Lungs: Clear bilaterally Cardiac: Irregular/tachycardic rhythm, faint heart tones, no obvious murmur. Abdomen: Nondistended. Extremities: No edema, lower extremity pulses nonpalpable, left leg cool, right leg cool. Neurologic: Sedated PG Care Time/CCT Total # of Minutes Spent Total Time Spent with Patient: Total time spent is greater than 50% in coordination of care (as documented) at patient's floor/unit and/or counseling patient: Coding Level of Care Code 19596 Subseq Hosp Care Lvl 3 Diagnoses Acute occlusion of aortoiliac artery I74.09 Atrial fibrillation with rapid ventricular response I48.91 CAD (coronary artery disease) I25.10 Ischemic cardiomyopathy I25.5 AICD (automatic cardioverter/defibrillator) present Z95.810 Hx of subdural hematoma Z86.79
[2022-05-01] MEDS ORDERED: Heparin IV Adult Wt-Based Standard *NO* Bolus Protocol IV ONE (20:15)
[2022-05-01] MEDS ORDERED: HEPARIN SODIUM/DEXTROSE 25,000 UNITS/500 ML BAG IV SCH (20:45)
[2022-05-01] MEDS: METOPROLOL TARTRATE 1 MG/ML VIAL IV SCH (21:03)
[2022-05-01] MEDS: rOPINIRole HCL 0.25 MG TABLET PO SCH (21:04)
[2022-05-01] MEDS: ESCITALOPRAM OXALATE 10 MG TAB PO SCH (21:05)
[2022-05-01 21:11] LABS: Partial Thromboplastin Time 28.5 Seconds (21.0-31.0)
[2022-05-01] MEDS ORDERED: DIGOXIN 125 MCG in SYRINGE 9.5 ML IV ONE (22:00)
[2022-05-01] MEDS ORDERED: STAT IV Infusion **Titration per Protocol STA (23:03)
[2022-05-01] MEDS: dilTIAZem HCL 125 MG in DEXTROSE 5% 100 ML IV SCH (23:19)
[2022-05-01] MEDS ORDERED: Heparin IV Adult Wt-Based Low-Dose *NO* Bolus Protocol IV ONE (23:30)
[2022-05-02] MEDS: METOPROLOL TARTRATE 1 MG/ML VIAL IV SCH ×3 (00:01→08:01)
[2022-05-02] MEDS: ACETAMINOPHEN 325 MG TAB PO PRN ×3 (00:14→21:02)
[2022-05-02] MEDS: HEPARIN SODIUM/DEXTROSE 25,000 UNITS/500 ML BAG IV SCH ×2 (00:16→23:28)
[2022-05-02 06:06] LABS: Hematocrit (blood only) 43.4 % (40.1-51.0); Mean Corpuscular Hemoglobin 29.9 pg (25.0-34.0); Mean Corpuscular Hgb Conc 34.6 g/dL (32.0-36.0); Mean Corpuscular Volume 86.5 fL (80.0-100.0); Mean Platelet Volume 10.5 fL (9.4-12.4); Platelet Count 193 K/uL (130-400); RDW Coefficient of Variation 14.8 % (11.5-14.5); RDW Standard Deviation 46.8 fL (36.4-46.3); Red Blood Count 5.02 M/uL (4.63-6.08); White Blood Count 8.68 K/ul (4.8-10.8)
[2022-05-02 06:17] LABS: Partial Thromboplastin Ratio 1.4; Partial Thromboplastin Time 37.5 Seconds (21.0-31.0)
[2022-05-02 06:38] LABS: BUN Creatinine Ratio 31.1 (10-20); Calcium 8.7 mg/dl (8.5-10.1); Creatinine Clr Calc Pharmacy 116.5 ml/min; Est GFR (African American) 106.1 ml/min; Est GFR (Non-African American) 91.5 ml/min; Magnesium 1.7 mg/dl (1.7-2.4); Potassium 4.4 mmol/L (3.5-5.1)
[2022-05-02] MEDS ORDERED: HEPARIN SOD (PORCINE) 1000 UNIT/ML IV ONE (06:45)
[2022-05-02] MEDS ORDERED: PERFLUTREN LIPID MICROSPHERE (DEFINITY) IV ONE (07:10)
[2022-05-02] MEDS: MAGNESIUM SULFATE / D5W 1 GM/100 ML BAG IV SCH ×2 (08:02→10:16)
[2022-05-02] MEDS ORDERED: MoRPHine SULFATE 2 MG/ML CARP IV STA (08:05)
--- NOTE | 2022-05-02 08:08 | Critical Care Progress Note ---
Date of Service May 02, 2022 Assessment & Plan (1) Acute occlusion of aortoiliac artery: Plan: ICU Assessment and Plans Reason Critically Ill: 71yo Male with PMH afib, Hx hemorrhagic stroke 6 months ago, CAD, HLD, DM2, cardiomyopathy, ICD placement here for acute occlusion of left aortoiliac artery requiring thrombectomy with vascular surgery, admitted to ICU for control of atrial fibrillation. Neuro - [facility] ICU: NEGATIVE Sedation: none Analgesia: tylenol, morphine Hx Hemorrhagic stroke 6 months ago -CT head: There is likely trace subacute subarachnoid hemorrhage again seen along a high right parietal lobe sulcus. This is less apparent than on yesterday's examination. No additional foci of hemorrhage are suspected. There is no mass effect or evidence of acute territorial ischemia by CT criteria. Chronic and postsurgical changes as above. -continue ASA, plavix, lipitor Restless Leg Syndrome -continue ropinerole Depression -continue lexapro Cardiac - Acute Occlusion of left aortoiliac artery -CT and AA: Atherosclerotic vascular disease with multifocal arterial occlusion of the bilateral lower extremities which includes the left common and external iliac arteries with multifocal areas of occlusion and high-grade stenosis throughout the bilateral superficial femoral and popliteal arteries and arteries of the left greater than right lower legs.Fusiform dilation of the aorta at the level of the diaphragmatic hiatus, 3.7 cm without dissection. Fusiform dilation of the celiac trunk, 1.6 cm.Gallbladder distention with sludge versus cholelithiasis. -vascular surgery consulted given one dose ancef HR 180's on 05/01, thrombectomy rescheduled for today -continue heparin drip Atrial Fibrillation -currently on metoprolol Succinate 150mg PO daily with diltiazem drip for rate control, currently HR in 70's -cardiology consulted aggressively up titrate metoprolol stop spironolactone for concern low BP consider digoxin if develop low BP -echo: EF <15% extensive wall motion abnormalities, moderate sized apical thrombus Respiratory - no concerns at this time GI - NPO RENAL/LYTES - No significant electrolyte derangement. Replace lytes as needed. - No concerns at this time. ENDO - DM2 -last A1c 6.8 in january -glucose 120 -consider SSI HEME - Stable H&H. Will monitor for any drops in the setting of Heparin gtt ID - No concerns for infection at this point. INTEGUMENTARY - Skin clean dry intact LINES/IV ACCESS - PIVs intact. DVT PROPHYLAXIS - Heparin drip Thank you for allowing us to be part of this patient's care. Please refer to Dr. Quinones's documentation for any further recommendations. (2) Atrial fibrillation with rapid ventricular response: (3) CAD (coronary artery disease): (4) Hyperlipidemia: (5) Obesity, diabetes, and hypertension syndrome: (6) Gout: Admission and Anticipated Discharge Date Admission Date: April 30, 2022 Supervising Physician Co-Signing Physician Notes Dr. Rich was resident physician during care of patient. I separately evaluated patient for bingham portions of the history and the exam. I was present during the critical portion of medical decision making, and I discussed the case with the resident. I generally agree with the findings and plan. Patient on heparin, no headache no neuro status changes. Planning to go to the operating room with Dr. Sharp today. Discussed with cardiology will increase beta-roseanne and hopefully wean off diltiazem infusion which was needed for rate control. He has a pre-existing pacemaker so beta-roseanne should be well- tolerated. I have personally spent 55 minutes of critical care time in the direct management of this patient. This is a life/limb threatening event. This includes time spent evaluating patient, direct bedside care, chart review, placing orders, interpretation of diagnostic studies, discussion with c onsultants, patient, and/or family members regarding treatment decisions, as well as other required patient management activities. This time is exclusive of all separately billable procedures, and teaching time and separate from and in addition to any other critical care service time. Subjective Patient seen at bedside, states he still has pain in his left leg that morphine did not resolve, is worried that his feet are still cold to the touch. Patient inquires if he is still on heparin. He understands vascular surgery is scheduled for later this morning. Patient denies headache dizziness SOB nausea vomitting chest pain, is able to move all extremities. Review of Systems Review of Systems: All systems reviewed & are unremarkable except as noted in HPI & below Physical Exam Constitutional: well developed, well nourished, + obese, cooperative and comfortable Eyes: PERRL, conjunctivae normal, anicteric sclerae ENMT: external ear and nose normal, oropharynx normal Neck: trachea midline, no thyromegaly Respiratory: normal respiratory effort, lungs clear to auscultation Cardiovascular: Rate/Rhythm: + irregularly irregular b/l feet to mid lower leg purple mottled cold to the touch Gastrointestinal (Abdomen): Inspection/Auscultation: abdomen normal to inspection Percussion/Palpation: abdomen soft; abdomen nontender Neurologic: moves all extremities loss of light touch sensation on left foot Results & Data Results & Data ([facility]) Vital Signs (Past 12 Hours) Vital Signs Temp Pulse Pulse Resp BP Pulse Ox O2 Del Method 05/02/22 08:01 75 121/66 05/02/22 06:00 88 14 97 Nasal Cannula 05/02/22 05:00 72 20 97 05/02/22 05:00 162/105 H 05/02/22 04:58 36.7 C 154/111 H 05/02/22 04:58 73 18 96 05/02/22 04:00 73 20 95 05/02/22 03:00 74 23 95 05/02/22 02:00 79 21 95 05/02/22 01:00 96 H 20 94 05/02/22 04:56 78 126/78 05/02/22 00:00 96 H 22 95 05/01/22 23:30 108 H 24 95 05/01/22 23:00 113/88 05/02/22 00:24 37 C 83 21 94 Nasal Cannula 05/02/22 00:01 105 H 122/75 05/01/22 23:00 132 H 21 94 05/01/22 22:50 134 H 25 H 93 05/01/22 22:40 121 H 23 94 05/01/22 22:30 135 H 19 94 05/01/22 22:20 132 H 22 93 05/01/22 22:10 137 H 23 94 05/01/22 22:00 149 H 17 95 05/01/22 22:00 106/90 05/01/22 21:50 116 H 21 95 05/01/22 21:40 125 H 22 96 05/01/22 21:30 120 H 19 96 05/01/22 21:20 131 H 17 95 05/01/22 21:10 127 H 23 96 05/01/22 21:00 154 H 17 94 05/01/22 21:00 127/99 05/01/22 20:50 145 H 21 96 05/01/22 20:40 141 H 19 95 05/01/22 20:30 130 H 20 96 05/01/22 20:20 141 H 19 95 05/01/22 20:10 137 H 24 95 05/01/22 22:05 163 H 05/01/22 21:03 160 H 127/99 O2 Flow Rate 05/02/22 08:01 05/02/22 06:00 2 05/02/22 05:00 05/02/22 05:00 05/02/22 04:58 05/02/22 04:58 05/02/22 04:00 05/02/22 03:00 05/02/22 02:00 05/02/22 01:00 05/02/22 04:56 05/02/22 00:00 05/01/22 23:30 05/01/22 23:00 05/02/22 00:24 2 05/02/22 00:01 05/01/22 23:00 05/01/22 22:50 05/01/22 22:40 05/01/22 22:30 05/01/22 22:20 05/01/22 22:10 05/01/22 22:00 05/01/22 22:00 05/01/22 21:50 05/01/22 21:40 05/01/22 21:30 05/01/22 21:20 05/01/22 21:10 05/01/22 21:00 05/01/22 21:00 05/01/22 20:50 05/01/22 20:40 05/01/22 20:30 05/01/22 20:20 05/01/22 20:10 05/01/22 22:05 05/01/22 21:03 Resident Activity Tracking Resident Involvement: Resident Care Provided Care Provided: Adult Hospital Medicine
--- NOTE | 2022-05-02 08:19 | XCELERA ---
[id number]
--- NOTE | 2022-05-02 08:57 | History & Physical Bridge Note ---
Date of Service May 02, 2022 History & Physical Bridge Note Heart rate better controlled today. Will plan on OR today. I have examined the patient, reviewed the History & Physical and in the interval since the performance of the History & Physical I have noted the following changes of clinical significance: no changes noted
--- NOTE | 2022-05-02 09:03 | Electrocardiogram Report ---
Test Reason : Blood Pressure : / mmHG Vent. Rate : 159 BPM Atrial Rate : 170 BPM P-R Int : 000 ms QRS Dur : 100 ms QT Int : 328 ms P-R-T Axes : 000 -41 123 degrees QTc Int : 533 ms Atrial fibrillation with rapid ventricular response with premature ventricular or aberrantly conducte d complexes Left axis deviation Left ventricular hypertrophy with repolarization abnormality Old Anteroseptal infarct T wave abnormality, consider lateral ischemia Abnormal ECG When compared with ECG of 30-APR-2022 11:04, HR has increased by 29 bpm Confirmed by Gavin Renae ([id number] on 05/02/2022 9:03:36 AM Referred By: REFERRED SELF Confirmed By:Gavin Renae
[2022-05-02] MEDS ORDERED: METOPROLOL SUCC 50MG EXT REL TAB PO STA (09:51)
[2022-05-02] MEDS ORDERED: CLINDAMYCIN/D5W 600 MG/50 ML BAG IV SCH (10:00)
[2022-05-02] MEDS ORDERED: METOPROLOL TARTRATE 100 MG TAB PO SCH (10:00)
--- NOTE | 2022-05-02 10:11 | Billing Data ---
Date of Service May 01, 2022 Coding Level of Care Code Critical Care 1st - mins
--- NOTE | 2022-05-02 10:12 | Billing Data ---
Date of Service May 02, 2022 Coding Level of Care Code Critical Care 1st - mins
[2022-05-02] MEDS: allopurinoL 100 MG TAB PO SCH (10:15)
[2022-05-02] MEDS: ASPIRIN 81 MG ECTAB PO SCH (10:15)
[2022-05-02] MEDS: CLOPIDOGREL BISULFATE 75 MG TAB PO SCH (10:15)
[2022-05-02] MEDS ORDERED: fentaNYL citrate 100 MCG/2 ML VIAL ONE (10:38)
[2022-05-02] MEDS ORDERED: MIDAZOLAM HCL 1 MG/ML 2ML VIAL ONE (10:39)
[2022-05-02] MEDS ORDERED: fentaNYL citrate 100 MCG/2 ML VIAL IV PRN (10:43)
[2022-05-02] MEDS ORDERED: ePHEDrine sulfate 50 MG/ML AMP IV PRN (10:43)
[2022-05-02] MEDS ORDERED: ONDANSETRON INJ 2 MG/ML 2 ML VIAL IV PRN (10:43)
[2022-05-02] MEDS ORDERED: ATROPINE SULFATE 0.1 MG/ML 10ML SYR IV PRN (10:43)
[2022-05-02] MEDS ORDERED: HYDROmorphone INJ 1 MG/ML SYRINGE IV PRN (10:43)
--- NOTE | 2022-05-02 10:43 | Anesthesiology Consultation ---
Date of Service May 02, 2022 Assessment & Plan ASA [id number] Proposed Anesthesia Anesthesia Type: General Risk / Benefits Reviewed With: PT / POA / Parent / Guardian, Accepts Plan and Informed Consent Obtained Additional Notes pt is rate controled on cardizem drip. spoke to cardiology. reviewed patients echo. information passed to remotely piloted vehicle controller and anesthesiologist doing case today. History Surgery Operation Date: 05/01/22 13:05 Proposed Procedures p Thrombectomy Left Iliac , Left Lower Extremity Possible Endarterectomy - Aaron Sharp MD s Possible Left Lower Extermity Stenting - Aaron Sharp MD Operation Date: 05/02/22 11:00 Proposed Procedures p Thrombectomy Left Iliac, Left Lower Extremity Possible Endarterectomy - Aaron Sharp MD s Possible left Lower Extremity Intervention and Stent - Aaron Sharp MD Height/Weight Height: 6 ft 2 in Weight: 108.4 kg Allergies Allergy/AdvReac Type Severity Reaction Status Date / Time No Known Allergies Allergy Verified 04/30/22 15:38 Medications Home Medications Medication Instructions Recorded Confirmed Last Taken aspirin 81 mg tablet,delayed 81 mg PO DAILY 09/03/20 04/30/22 04/29/22 release furosemide 20 mg tablet 10 mg PO DAILY PRN edema #90 tabs 12/13/21 04/30/22 Unknown metformin 500 mg tablet 500 mg PO BID #180 tabs 12/13/21 04/30/22 04/29/22 atorvastatin 80 mg tablet 80 mg PO QPM 01/01/22 04/30/22 04/29/22 clopidogrel 75 mg tablet 75 mg PO QAM 01/01/22 04/30/22 04/29/22 escitalopram oxalate 10 mg tablet 10 mg PO HS 01/01/22 04/30/22 04/29/22 (Lexapro) spironolactone 25 mg tablet 25 mg PO QPM 01/01/22 04/30/22 04/29/22 allopurinol 100 mg tablet 100 mg PO DAILY 03/21/22 04/30/22 04/29/22 metoprolol succinate 25 mg 25 mg PO DAILY #30 tabs 03/21/22 04/30/22 04/29/22 tablet,extended release 24 hr metoprolol succinate 50 mg 100 mg PO QAM 30 days #60 tabs 03/21/22 04/30/22 04/29/22 tablet,extended release 24 hr ropinirole 0.25 mg tablet 0.5 mg PO HS 04/30/22 04/30/22 04/29/22 Active Medications Generic Name Dose Route Start Last Admin Trade Name Frecass PRN Reason Stop Dose Admin Acetaminophen 650 mg 05/01/22 05:15 05/02/22 04:59 Acetaminophen 325 Mg Tab PO 05/31/22 05:14 650 mg Q4H PRN Administration Pain or Fever Allopurinol 100 mg 05/01/22 09:00 05/02/22 10:15 Allopurinol 100 Mg Tab PO 05/31/22 08:59 100 mg DAILY IZAIAH Administration Aspirin 81 mg 05/01/22 09:00 05/02/22 10:15 Aspirin 81 Mg Ectab PO 05/31/22 08:59 81 mg DAILY IZAIAH Administration Atorvastatin Calcium 80 mg 04/30/22 20:00 05/01/22 16:29 Atorvastatin 40 Mg Tab PO 05/30/22 19:59 80 mg DAILY@1400 IZAIAH Administration Clopidogrel Bisulfate 75 mg 05/01/22 09:00 05/02/22 10:15 Clopidogrel Bisulfate 75 Mg Tab PO 05/31/22 08:59 75 mg QAM IZAIAH Administration Escitalopram Oxalate 10 mg 04/30/22 21:00 05/01/22 21:05 Escitalopram Oxalate 10 Mg Tab PO 05/30/22 20:59 10 mg HS IZAIAH Administration Diltiazem HCl 125 mg/ Dextrose 125 mls @ 5 mls/hr 05/01/22 23:15 05/02/22 07:23 IV 05/31/22 23:14 5 mg/hr .Q24H IZAIAH 5 mls/hr Titration Protocol 5 MG/HR Heparin Sodium/Dextrose 25,000 units in 500 mls @ 24 mls/hr 05/01/22 23:30 05/02/22 07:23 Heparin Sodium/Dextrose IV 05/31/22 23:29 1,200 units/hr .[id number] IZAIAH 24 mls/hr Titration Protocol 1,200 UNITS/HR Magnesium Sulfate/Dextrose 1 gm in 100 mls @ 50 mls/hr 05/02/22 07:00 05/02/22 10:16 Magnesium Sulfate / D5w IV 05/02/22 10:59 50 mls/hr Q2H IZAIAH Administration Clindamycin Phosphate 600 mg in 50 mls @ 100 mls/hr 05/02/22 10:00 05/02/22 10:04 Cleocin/D5w IV 05/03/22 09:59 100 mls/hr Q8H IZAIAH Administration Metoprolol Succinate 150 mg 05/01/22 09:00 05/01/22 08:26 Metoprolol Succ 50mg Ext Rel Tab PO 05/31/22 08:59 150 mg QAM IZAIAH Administration Ropinirole HCl 0.5 mg 04/30/22 20:00 05/01/22 21:04 Ropinirole Hcl 0.25 Mg Tablet PO 05/30/22 19:59 0.5 mg TODAY@2000 IZAIAH Administration NPO Date Last Intake of Fluids: 05/01/22 Time Last Intake of Fluids: 21:00 Date Last Intake of Solids: 05/01/22 Time Last Intake of Solids: 11:00 Last Intake of Solids Comment: kareen Past Medical History Medical History Acute CVA (cerebrovascular accident) Atrial fibrillation with rapid ventricular response Elevated troponin Implantable cardioverter-defibrillator (ICD) discharge Exercise / Class Metabolic Activity II 4-5 Yardwork/Stairs/Walk up hill Past Family History Family History Brother Diabetes Mother Hypertension Father Stroke Denies family history of Ovarian cancer Prostate cancer Myocardial infarction Breast cancer Colorectal cancer Past Surgical History Surgical History H/O heart bypass surgery Past Anesthesia History No Hx of Anesthesia Complications and No Family Hx of Anesthesia Complications History of PONV No Hx of PONV and No Hx of Motion Sickness Social History Smoking Status: Never smoker Do You Dip or Chew Tobacco: No Hx Alcohol Use: No Hx Substance Use: No substance use type: does not use Review of Systems denies fever/cough/ colds/ chest pain/ SOB/ JOYCE see post op note from yesterday for details denies JOYCE Physical Exam Vital Signs Last Vital Signs Temp 36.6 C 05/02/22 09:57 Pulse 73 05/02/22 09:57 Resp 20 05/02/22 09:57 BP 118/63 05/02/22 09:57 Pulse Ox 95 05/02/22 09:57 O2 Del Method 05/02/22 09:57 O2 Flow Rate 2 05/02/22 06:00 ENMT Mouth: no TMJ abnormality and no dentition abnormality Thyromental Distance: > or= 3.5 Finger Breadths Mallampati Class: II Neck neck extension not limited Respiratory normal respiratory effort; no respiratory distress Auscultation: lungs clear to auscultation bilaterally Cardiovascular Rate/Rhythm: regular rate and regular rhythm Neurologic moves all extremities Psychiatric Orientation: alert and oriented x 3 Testing Laboratory Results 05/02/22 05:51 05/02/22 05:51 PT 13.1 Seconds (9.0-12.0) H 04/30/22 11:00 INR 1.2 (0.9-1.1) H 04/30/22 11:00 APTT 37.5 Seconds (21.0-31.0) H 05/02/22 05:51 Blood Type AB Positive 05/02/22 09:13 Antibody Screen NEGATIVE 05/02/22 09:13 05/02/22 00:06 POC Glucose 130 H
[2022-05-02] MEDS ORDERED: PROPOFOL IV EMULSION 10 MG/ML 20 ML VIAL IV ONE (10:44)
[2022-05-02] MEDS ORDERED: KETAMINE 50 MG/5 ML SYRINGE ONE (10:44)
[2022-05-02] MEDS ORDERED: LIDOCAINE 2% MPF LOCAL 5 ML VIAL INFIL ONE (10:44)
[2022-05-02] MEDS ORDERED: CISATRACURIUM BESYLATE IV SOLN 2 MG/ML 10 ML VIAL IV ONE ×2 (10:44)
[2022-05-02] MEDS ORDERED: VASOPRESSIN 20 UNIT/ML VIAL ONE ×3 (10:44→14:52)
[2022-05-02] MEDS ORDERED: GELATIN SPONGE SZ 100 ONE (11:30)
[2022-05-02] MEDS ORDERED: ceFAZolin 330 MG/ML 1 GM VIAL ONE (11:30)
[2022-05-02] MEDS ORDERED: PAPAVERINE HCL INJ 30 MG/ML 2 ML VIAL ONE (11:30)
[2022-05-02] MEDS ORDERED: HEPARIN (PORCINE) 1000 UNIT/ML 10 ML (CATH LAB USE ONLY) ONE (11:30)
[2022-05-02] MEDS ORDERED: THROMBIN FOR SOLN 20000 UNIT KIT ONE (11:30)
--- NOTE | 2022-05-02 11:31 | Cardiology Progress Note ---
Date of Service May 02, 2022 Assessment & Plan (1) LV (left ventricular) mural thrombus: (2) Ischemic cardiomyopathy: (3) Permanent atrial fibrillation: (4) Acute occlusion of aortoiliac artery: (5) CAD (coronary artery disease): (6) AICD (automatic cardioverter/defibrillator) present: (7) Hx of subdural hematoma: Plan Patient with no cardiopulmonary symptoms currently. No evidence of ongoing myocardial ischemia or congestive heart failure. Ventricular rate for his permanent atrial fibrillation is much better controlled on diltiazem drip, but this would be a suboptimal choice for long-term management given his tendency to hypotension and his severely reduced LV systolic function (EF in the 15% range). Since metoprolol alone appeared inadequate in achieving rate control, perioperatively could switch to esmolol or use intravenous amiodarone (for rate control not rhythm control) temporarily, then continue oral amiodarone or resume metoprolol for chronic rate control. His atrial fibrillation appears permanent, thus there is no utility to allowing his ICD to attempt cardioversion in the absence of ventricular dysrhythmia. Given presence of left ventricular thrombus as almost certain source of his thromboembolism, would continue heparin and transition to full dose apixaban upon discharge. Would discontinue aspirin and clopidogrel while on heparin and later apixaban, given his increased risk of intracranial bleeding. Dr. Choe will be covering the weekend, I will ask him to check on the patient. Admission and Anticipated Discharge Date Admission Date: April 30, 2022 Subjective Patient complains of left leg feeling cool, no other complaints. Denies dyspnea, chest discomfort, or subjective palpitations. Placed on diltiazem drip with markedly improved heart rate, current ventricular response in the 70-80 bpm range. Normotensive. Thrombectomy planned for today. Physical Exam Physical Exam: No acute distress. Afebrile. Normotensive. Pulse 70-80 bpm and irregular. HEENT: Unremarkable Lungs: Clear bilaterally Cardiac: Irregular rhythm, faint heart tones, no obvious murmur. Abdomen: Nondistended. Extremities: No edema, lower extremity pulses nonpalpable, left leg cool, right leg warm. Neurologic: Alert, normal conversation, nonfocal Results & Data ([facility]) Laboratory Results Sodium 134, otherwise normal electrolytes, BUN 23, creatinine 0.74. Diagnostic Findings Echocardiogram showed EF in the 15% range with extensive wall motion normalities, only the inferior lateral base move and all other ward are akinetic, there is a 1.5 cm x 3.0 cm laminated thrombus adherent to dyskinetic left ventricular apex. Normal right ventricular size and function, mild MR with moderately dilated LA, normal RVSP with mildly dilated IVC. PG Care Time/CCT Total # of Minutes Spent Total Time Spent with Patient: Total time spent is greater than 50% in coordination of care (as documented) at patient's floor/unit and/or counseling patient: Coding Level of Care Code 81542 Subseq Hosp Care Lvl 3 Diagnoses LV (left ventricular) mural thrombus I51.3 Ischemic cardiomyopathy I25.5 Permanent atrial fibrillation I48.21 Acute occlusion of aortoiliac artery I74.09 CAD (coronary artery disease) I25.10 AICD (automatic cardioverter/defibrillator) present Z95.810 Hx of subdural hematoma Z86.79
[2022-05-02] MEDS ORDERED: VISIPAQUE ONE (13:04)
[2022-05-02] MEDS ORDERED: HEPARIN SOD (PORCINE) 1000 UNIT/ML ONE ×2 (13:15→14:52)
--- NOTE | 2022-05-02 14:42 | Anesthesiology Progress Note ---
Date of Service May 02, 2022 Anesthesia Post Procedure Vital Signs Vital Signs: Temp Pulse Pulse Resp BP BP Pulse Ox 05/02/22 11:30 71 17 94 05/02/22 11:30 129/83 05/02/22 11:00 75 19 95 05/02/22 11:00 137/87 05/02/22 10:30 75 15 92 05/02/22 10:30 138/78 05/02/22 10:00 73 14 95 05/02/22 10:00 141/86 H 05/02/22 09:30 73 19 91 05/02/22 09:30 140/81 05/02/22 09:00 71 14 92 05/02/22 09:00 133/88 05/02/22 08:30 73 24 93 05/02/22 08:30 125/84 05/02/22 08:19 129/77 05/02/22 08:19 73 14 05/02/22 08:00 71 19 98 05/02/22 07:30 74 17 95 05/02/22 07:00 72 21 95 05/02/22 06:45 74 18 96 05/02/22 11:39 75 05/02/22 11:39 75 121/66 05/02/22 08:00 75 05/02/22 08:00 75 121/66 05/02/22 09:57 36.6 C 73 20 118/63 95 05/02/22 08:01 75 121/66 05/02/22 06:00 88 14 97 05/02/22 05:00 72 20 97 05/02/22 05:00 162/105 H 05/02/22 04:58 36.7 C 154/111 H 05/02/22 04:58 73 18 96 05/02/22 04:00 73 20 95 05/02/22 03:00 74 23 95 05/02/22 02:00 79 21 95 05/02/22 01:00 96 H 20 94 05/02/22 04:56 78 126/78 05/02/22 00:00 96 H 22 95 05/01/22 23:30 108 H 24 95 05/01/22 23:00 113/88 05/01/22 20:00 05/02/22 00:24 37 C 83 21 94 05/02/22 00:01 105 H 122/75 05/01/22 23:00 132 H 21 94 05/01/22 22:50 134 H 25 H 93 05/01/22 22:40 121 H 23 94 05/01/22 22:30 135 H 19 94 05/01/22 22:20 132 H 22 93 05/01/22 22:10 137 H 23 94 05/01/22 22:00 149 H 17 95 05/01/22 22:00 106/90 05/01/22 21:50 116 H 21 95 05/01/22 21:40 125 H 22 96 05/01/22 21:30 120 H 19 96 05/01/22 21:20 131 H 17 95 05/01/22 21:10 127 H 23 96 05/01/22 21:00 154 H 17 94 05/01/22 21:00 127/99 05/01/22 20:50 145 H 21 96 05/01/22 20:40 141 H 19 95 05/01/22 20:30 130 H 20 96 05/01/22 20:20 141 H 19 95 05/01/22 20:10 137 H 24 95 05/01/22 20:00 144 H 20 93 05/01/22 20:00 123/95 05/01/22 19:50 146 H 22 95 05/01/22 19:40 127 H 17 95 05/01/22 19:30 127 H 22 95 05/01/22 19:20 135 H 22 95 05/01/22 19:10 130 H 22 95 05/01/22 19:00 145 H 22 94 05/01/22 19:00 127/97 05/01/22 18:50 148 H 19 94 05/01/22 18:40 125 H 21 95 05/01/22 22:05 163 H 05/01/22 21:03 160 H 127/99 05/01/22 19:32 140 H 139/94 05/01/22 18:30 131 H 20 95 05/01/22 18:00 139 H 15 98 05/01/22 18:00 106/79 05/01/22 18:24 131 H 123/83 05/01/22 17:54 132 H 117/83 05/01/22 17:30 132 H 20 99 05/01/22 17:30 117/83 05/01/22 17:00 136 H 12 98 05/01/22 17:00 124/97 05/01/22 15:00 05/01/22 16:58 05/01/22 16:57 36.5 C 05/01/22 16:50 135 H 21 97 05/01/22 16:45 119 H 14 97 05/01/22 16:40 138 H 18 98 05/01/22 16:35 134 H 24 98 05/01/22 16:30 150 H 35 H 97 05/01/22 16:30 109/78 05/01/22 16:25 153 H 22 96 05/01/22 16:20 143 H 21 97 05/01/22 16:15 160 H 17 96 05/01/22 16:10 115 H 22 97 05/01/22 16:05 131 H 22 96 05/01/22 16:00 137 H 39 H 96 05/01/22 16:00 103/76 05/01/22 15:55 127 H 24 95 05/01/22 15:50 125 H 32 H 94 05/01/22 15:45 122 H 17 94 05/01/22 15:45 105/81 05/01/22 15:40 140 H 23 94 05/01/22 15:35 144 H 24 95 05/01/22 15:31 117 H 24 92 05/01/22 15:31 129/86 05/01/22 15:30 136 H 23 95 05/01/22 15:25 123 H 25 H 95 05/01/22 15:20 137 H 14 93 05/01/22 15:20 101/77 05/01/22 15:15 132 H 26 H 93 05/01/22 15:15 136/103 H 05/01/22 15:10 128 H 26 H 94 05/01/22 15:10 136/102 H 05/01/22 15:05 131 H 27 H 93 05/01/22 15:05 140/111 H 05/01/22 15:00 123 H 25 H 95 05/01/22 15:00 148/92 H 05/01/22 14:55 138 H 32 H 94 05/01/22 14:55 148/110 H 05/01/22 14:50 160 H 13 90 05/01/22 14:50 135/102 H 05/01/22 14:45 157 H 20 94 05/01/22 14:44 17 91 05/01/22 14:44 155/105 H 05/01/22 16:00 125 H 05/01/22 16:29 160 H 122/83 05/01/22 15:40 163 H 129/86 05/01/22 15:10 36.5 C 160 H 14 128/84 94 05/01/22 15:05 36.7 C 121 H 14 133/85 94 05/01/22 15:00 36.5 C 130 H 14 108/74 94 05/01/22 14:55 36.5 C 134 H 14 118/81 94 05/01/22 14:50 36.5 C 142 H 16 146/95 H 94 Pulse Ox O2 Del Method O2 Del Method O2 Flow Rate O2 Flow Rate 05/02/22 11:30 05/02/22 11:30 05/02/22 11:00 05/02/22 11:00 05/02/22 10:30 05/02/22 10:30 05/02/22 10:00 05/02/22 10:00 05/02/22 09:30 05/02/22 09:30 05/02/22 09:00 05/02/22 09:00 05/02/22 08:30 05/02/22 08:30 05/02/22 08:19 05/02/22 08:19 05/02/22 08:00 05/02/22 07:30 05/02/22 07:00 05/02/22 06:45 05/02/22 11:39 05/02/22 11:39 05/02/22 08:00 05/02/22 08:00 05/02/22 09:57 Room Air 05/02/22 08:01 05/02/22 06:00 Nasal Cannula 2 05/02/22 05:00 05/02/22 05:00 05/02/22 04:58 05/02/22 04:58 05/02/22 04:00 05/02/22 03:00 05/02/22 02:00 05/02/22 01:00 05/02/22 04:56 05/02/22 00:00 05/01/22 23:30 05/01/22 23:00 05/01/22 20:00 Nasal Cannula 2 05/02/22 00:24 Nasal Cannula 2 05/02/22 00:01 05/01/22 23:00 05/01/22 22:50 05/01/22 22:40 05/01/22 22:30 05/01/22 22:20 05/01/22 22:10 05/01/22 22:00 05/01/22 22:00 05/01/22 21:50 05/01/22 21:40 05/01/22 21:30 05/01/22 21:20 05/01/22 21:10 05/01/22 21:00 05/01/22 21:00 05/01/22 20:50 05/01/22 20:40 05/01/22 20:30 05/01/22 20:20 05/01/22 20:10 05/01/22 20:00 05/01/22 20:00 05/01/22 19:50 05/01/22 19:40 05/01/22 19:30 05/01/22 19:20 05/01/22 19:10 05/01/22 19:00 05/01/22 19:00 05/01/22 18:50 05/01/22 18:40 05/01/22 22:05 05/01/22 21:03 05/01/22 19:32 05/01/22 18:30 05/01/22 18:00 05/01/22 18:00 05/01/22 18:24 05/01/22 17:54 05/01/22 17:30 05/01/22 17:30 05/01/22 17:00 05/01/22 17:00 05/01/22 15:00 Oxymask 8 05/01/22 16:58 94 Oxymask 8 05/01/22 16:57 05/01/22 16:50 05/01/22 16:45 05/01/22 16:40 05/01/22 16:35 05/01/22 16:30 05/01/22 16:30 05/01/22 16:25 05/01/22 16:20 05/01/22 16:15 05/01/22 16:10 05/01/22 16:05 05/01/22 16:00 05/01/22 16:00 05/01/22 15:55 05/01/22 15:50 05/01/22 15:45 05/01/22 15:45 05/01/22 15:40 05/01/22 15:35 05/01/22 15:31 05/01/22 15:31 05/01/22 15:30 05/01/22 15:25 05/01/22 15:20 05/01/22 15:20 05/01/22 15:15 05/01/22 15:15 05/01/22 15:10 05/01/22 15:10 05/01/22 15:05 05/01/22 15:05 05/01/22 15:00 05/01/22 15:00 05/01/22 14:55 05/01/22 14:55 05/01/22 14:50 05/01/22 14:50 05/01/22 14:45 05/01/22 14:44 05/01/22 14:44 05/01/22 16:00 05/01/22 16:29 05/01/22 15:40 05/01/22 15:10 Oxymask 8 05/01/22 15:05 Oxymask 8 05/01/22 15:00 Oxymask 8 05/01/22 14:55 Oxymask 8 05/01/22 14:50 Oxymask 8 Pain Intensity Left Groin: Pain Intensity: 0 Left Lower Leg: Pain Intensity: 4 Transfer of Care Handoff Completed per policy Notes Mental Status: alert / awake / arousable and participated in evaluation Patient Amnestic to Procedure: Yes Nausea / Vomiting: adequately controlled Pain: adequately controlled Airway Patency, RR, SpO2: stable & adequate BP & HR: stable & adequate Hydration State: stable & adequate Anesthetic Complications: no major complications apparent and Pt Satisfied with anesthetic care
[2022-05-02] MEDS ORDERED: SODIUM CHLORIDE 0.9% INJ 10 ML VIAL ONE (14:52)
[2022-05-02] MEDS ORDERED: NEOSTIGMINE METHYLSULFATE 1 MG/ML 10ML VIAL ONE (14:52)
[2022-05-02] MEDS ORDERED: DEXAMETHASONE SOD INJ 4 MG/ML VIAL ONE (14:52)
[2022-05-02] MEDS ORDERED: ONDANSETRON INJ 2 MG/ML 2 ML VIAL ONE (14:52)
[2022-05-02] MEDS ORDERED: GLYCOPYRROLATE 0.2 MG/ML VIAL ONE (14:52)
[2022-05-02] MEDS ORDERED: PHENYLEPHRINE HCL 10 MG/ML VIAL ONE (14:52)
--- NOTE | 2022-05-02 14:55 | Post Operative Brief Note ---
Immediate Post Op Note v1 Date of Surgery May 02, 2022 Pre & Post Diagnosis Operation Date: 05/01/22 13:05 Pre-Op Diagnosis: ARTERIAL THROMBOSIS ILIAC ARTERY Post-Op Diagnosis: ARTERIAL THROMBOSIS ILIAC ARTERY Operation Date: 05/02/22 11:00 Pre-Op Diagnosis: Arterial thrombosis left iliac artery Post-Op Diagnosis: Arterial thrombosis left iliac artery I identified the patient and participated in the time-out.: Yes Procedure Operation Date: 05/01/22 13:05 Actual Procedures p Thrombectomy Left Iliac , Left Lower Extremity Possible Endarterectomy(Left) - Aaron Sharp MD Operation Date: 05/02/22 11:00 Actual Procedures p Bilateral Iliac and Femoral Embolectomy, Left Common Femoral Artery Endarterectomy with Bovine Patch, Right Common Artery Patch Angioplasty(Left) - Aaron Sharp MD Surgeon Aaron Sharp MD Neurourologist Brandin,PAC Estimated Blood Loss 100 Findings Consistent with Post-Op Diagnosis Drains Gimenez Catheter Anesthesia Type General Complications none Disposition Accompanied Patient To Recovery: No Disposition: Recovery Room
[2022-05-02 15:11] LABS: Basophils # (auto) 0.05 K/uL (0-0.2); Basophils % (auto) 0.3 %; Eosinophils # (auto) 0.02 K/uL (0-0.50); Eosinophils % (auto) 0.1 %; Hematocrit (blood only) 41.5 % (40.1-51.0); Hemoglobin 14.1 g/dl (14.0-18.0); Immature Granulocytes # (auto) 0.11 K/uL (0.00-0.02); Immature Granulocytes % (auto) 0.7 %; Lymphocytes # (auto) 1.96 K/uL (1.2-3.4); Lymphocytes % (auto) 12.1 %; Mean Corpuscular Hemoglobin 29.6 pg (25.0-34.0); Mean Corpuscular Volume 87.2 fL (80.0-100.0); Mean Platelet Volume 10.9 fL (9.4-12.4); Monocytes # (auto) 0.93 K/uL (0.24-0.82); Monocytes % (auto) 5.7 %; Neutrophils # (auto) 13.13 K/uL (1.4-6.5); Neutrophils % (auto) 81.1 %; Platelet Count 187 K/uL (130-400); RDW Coefficient of Variation 14.7 % (11.5-14.5); RDW Standard Deviation 47.6 fL (36.4-46.3); Red Blood Count 4.76 M/uL (4.63-6.08)
[2022-05-02 15:32] LABS: BUN Creatinine Ratio 32.9 (10-20); Calcium 8.6 mg/dl (8.5-10.1); Creatinine Clr Calc Pharmacy 118.1 ml/min; Est GFR (African American) 106.7 ml/min; Potassium 4.2 mmol/L (3.5-5.1)
[2022-05-02 15:41] LABS: Partial Thromboplastin Ratio 3.6
[2022-05-02] MEDS: CLINDAMYCIN/D5W 600 MG/50 ML BAG IV SCH (16:15)
[2022-05-02] MEDS: ATORVASTATIN 40 MG TAB PO SCH (16:15)
[2022-05-02 16:29] LABS: Partial Thromboplastin Time 97.9 Seconds (21.0-31.0)
[2022-05-02 17:32] LABS: Partial Thromboplastin Ratio 2.9
[2022-05-02] MEDS: HYDROmorphone INJ 0.5 MG/0.5 ML SYR IV PRN ×2 (17:47→23:27)
[2022-05-02 18:56] LABS: Partial Thromboplastin Time 78.5 Seconds (21.0-31.0)
[2022-05-02] MEDS: dilTIAZem HCL 125 MG in DEXTROSE 5% 100 ML IV SCH (20:11)
[2022-05-02] MEDS: ESCITALOPRAM OXALATE 10 MG TAB PO SCH (21:04)
[2022-05-02] MEDS: rOPINIRole HCL 0.25 MG TABLET PO SCH (21:04)
--- NOTE | 2022-05-02 22:31 | Hospitalist Progress Note ---
Date of Service May 02, 2022 Assessment & Plan (1) Acute occlusion of aortoiliac artery: Plan: 71 yo male with acute occulison of aortoiliac artery. Patient has history of atrial fibrillation. Has history of hemorrhagic stroke about 3 years ago. Patient had history of chronic subdural hematoma. heparin was initially started but then placed on hold. Awaiting ct scan. discussed with Dr. Rico, and he is aware of he current situation. concern over subarachnoid hemorrhage, however, patient is not complaining of a headache. will need to hold heparin though if CT scan cannot rule out subarachnoid hemorrhage. ON 05/01 Extremities appear colder today. And patient is now complaining of his being numb. Thankfully he is still able to move his leg. Informed Dr. Rico multiple times of the patients progression of his symptoms. on 05/02 Patient is currently in the ICU, had an a line to help monitor his pressures. Due to an elevated HR on 05/01, he went into RVR, patient's procedure hadd to be stopped as he was defibrillated. He has since been placed on a diltiazem drip. Patient will be going later today for the thrombectomy. His HR is better controlled, given his low EF, will likley switch his diltiazem to a beta roseanne. (2) Atrial fibrillation with rapid ventricular response: Plan: HR is elevated between 100-130s. will increase beta roseanne. (3) Ischemic cardiomyopathy: Plan: Chronic HFrEF currently patient is not in acute HFrEF. will monitor. Admission and Anticipated Discharge Date Admission Date: April 30, 2022 Subjective Patient reports being more comfortable. Awaiting his procedure. Review of Systems Review of Systems: All systems reviewed & are unremarkable except as noted in HPI & below Physical Exam Constitutional: WD/WN, vitals as above Eyes: PERRL, conjunctivae normal, anicteric sclerae ENMT: external ear and nose normal, oropharynx normal Neck: trachea midline, no thyromegaly Respiratory: normal respiratory effort, lungs clear to auscultation Cardiovascular: RRR, no murmur, no edema Gastrointestinal (Abdomen): normal bowel sounds, soft, nontender, no hepatosplenomegaly Musculoskeletal: no cyanosis or clubbing, extremities motor strength 5/5 (left leg did not feel colder than his right, normal strength) Skin: no rashes, warm and dry Neurologic: PERRL, EOMI, accommodation nl, no face palsy, no dysarthria Psychiatric: A+Ox3, euthymic affect Lymphatic: no cervical or axillary lymphadenopathy Results & Data Results & Data ([facility]) Vital Signs (Past 12 Hours) Vital Signs Temp Pulse Pulse Resp BP BP Pulse Ox 05/02/22 17:30 72 15 97 05/02/22 17:30 102/66 05/02/22 17:00 74 18 97 05/02/22 17:00 84/65 L 05/02/22 16:30 82 20 96 05/02/22 16:30 98/70 L 05/02/22 16:00 79 22 95 05/02/22 16:00 102/61 05/02/22 15:30 103/65 05/02/22 15:30 97 H 13 90 05/02/22 15:00 85 20 91 05/02/22 15:00 116/72 05/02/22 14:50 124/84 05/02/22 14:50 73 17 97 05/02/22 14:37 72 20 92 05/02/22 16:00 75 121/66 05/02/22 15:02 37.0 C 80 18 124/61 95 05/02/22 14:52 79 16 116/72 91 05/02/22 14:42 79 16 137/59 L 96 05/02/22 14:32 36.4 C L 73 14 125/41 L 96 05/02/22 11:30 71 17 94 05/02/22 11:30 129/83 05/02/22 11:00 75 19 95 05/02/22 11:00 137/87 05/02/22 11:39 75 05/02/22 11:39 75 121/66 O2 Del Method O2 Flow Rate 05/02/22 17:30 05/02/22 17:30 05/02/22 17:00 05/02/22 17:00 05/02/22 16:30 05/02/22 16:30 05/02/22 16:00 05/02/22 16:00 05/02/22 15:30 05/02/22 15:30 05/02/22 15:00 05/02/22 15:00 05/02/22 14:50 05/02/22 14:50 05/02/22 14:37 05/02/22 16:00 05/02/22 15:02 Nasal Cannula 05/02/22 14:52 Room Air 05/02/22 14:42 Room Air 05/02/22 14:32 Oxymask 8 05/02/22 11:30 05/02/22 11:30 05/02/22 11:00 05/02/22 11:00 05/02/22 11:39 05/02/22 11:39 PG Care Time/CCT Total # of Minutes Spent Total Time Spent with Patient: Total time spent is greater than 50% in coordination of care (as documented) at patient's floor/unit and/or counseling patient: Coding Level of Care Code 60922 Subseq Hosp Care Lvl 3 Diagnoses Acute occlusion of aortoiliac artery I74.09 Atrial fibrillation with rapid ventricular response I48.91 Ischemic cardiomyopathy I25.5 Time Spent (min) 35
[2022-05-02 23:39] LABS: Partial Thromboplastin Ratio 1.9
[2022-05-02 23:49] LABS: Partial Thromboplastin Time 51.3 Seconds (21.0-31.0)
[2022-05-03] MEDS: CLINDAMYCIN/D5W 600 MG/50 ML BAG IV SCH (00:07)
[2022-05-03 03:31] LABS: Basophils # (auto) 0.02 K/uL (0-0.2); Basophils % (auto) 0.1 %; Hematocrit (blood only) 39.2 % (40.1-51.0); Hemoglobin 13.3 g/dl (14.0-18.0); Immature Granulocytes # (auto) 0.06 K/uL (0.00-0.02); Immature Granulocytes % (auto) 0.4 %; Lymphocytes # (auto) 1.52 K/uL (1.2-3.4); Mean Corpuscular Hemoglobin 29.6 pg (25.0-34.0); Mean Corpuscular Hgb Conc 33.9 g/dL (32.0-36.0); Mean Corpuscular Volume 87.1 fL (80.0-100.0); Mean Platelet Volume 10.7 fL (9.4-12.4); Monocytes # (auto) 1.34 K/uL (0.24-0.82); Monocytes % (auto) 7.9 %; Neutrophils # (auto) 13.92 K/uL (1.4-6.5); Neutrophils % (auto) 82.6 %; Platelet Count 214 K/uL (130-400); RDW Coefficient of Variation 14.7 % (11.5-14.5); RDW Standard Deviation 47.2 fL (36.4-46.3); White Blood Count 16.86 K/ul (4.8-10.8)
[2022-05-03 04:02] LABS: BUN Creatinine Ratio 27.4 (10-20); Creatinine Clr Calc Pharmacy 73.7 ml/min; Est GFR (African American) 71.3 ml/min; Est GFR (Non-African American) 61.5 ml/min; Magnesium 2.1 mg/dl (1.7-2.4); Phosphorus 4.7 mg/dl (2.5-4.9)
[2022-05-03] MEDS ORDERED: NORMOSOL-R 500 ML IV ONE (04:50)
[2022-05-03] MEDS ORDERED: SODIUM CHLORIDE 0.9% 1000ML 500 ML IV ONE (05:06)
[2022-05-03 07:49] LABS: Partial Thromboplastin Ratio 1.7; Partial Thromboplastin Time 47.6 Seconds (21.0-31.0)
[2022-05-03] MEDS: HYDROmorphone INJ 0.5 MG/0.5 ML SYR IV PRN ×4 (07:59→19:51)
--- NOTE | 2022-05-03 08:14 | Critical Care Progress Note ---
Date of Service May 03, 2022 Assessment & Plan (1) Acute occlusion of aortoiliac artery: Plan: ICU Assessment and Plans Reason Critically Ill: 71yo Male with PMH afib, Hx hemorrhagic stroke 6 months ago, CAD, HLD, DM2, cardiomyopathy, ICD placement here for acute occlusion of left aortoiliac artery requiring thrombectomy with vascular surgery, admitted to ICU for control of atrial fibrillation. Neuro - CAM ICU: NEGATIVE Sedation: none Analgesia: tylenol, morphine Hx Hemorrhagic stroke 6 months ago -continue ASA, plavix, lipitor Restless Leg Syndrome -continue ropinerole Depression -continue lexapro Cardiac - Acute Occlusion of left aortoiliac artery -Postop day 1 -Continue heparin infusion Atrial Fibrillation -currently on metoprolol Succinate 150mg PO daily -Good heart rate control have held diltiazem anticipate ability to disc ontinue today -cardiology consult reviewed -echo: EF <15% extensive wall motion abnormalities, moderate sized apical thrombus Respiratory - no concerns at this time GI - Progress diet as tolerated RENAL/LYTES - No significant electrolyte derangement. Replace lytes as needed. - No concerns at this time. ENDO - DM2 -last A1c 6.8 in january -glucose 120 -consider SSI HEME - Stable H&H. ID - No concerns for infection at this point. LINES/IV ACCESS - PIV DVT PROPHYLAXIS - Heparin drip -We will need to reconsider long-term anticoagulation given apical thrombus (2) Atrial fibrillation with rapid ventricular response: (3) CAD (coronary artery disease): (4) Hyperlipidemia: (5) Obesity, diabetes, and hypertension syndrome: (6) Gout: Admission and Anticipated Discharge Date Admission Date: April 30, 2022 Subjective Patient feeling improved. Mild numbness and left leg with mild to moderate pain, significant improvement in right leg. Physical Exam Physical Exam: General: Alert. nontoxic. Skin: Warm, dry, Head: Atraumatic Ears, nose, mouth and throat: airway patent Cardiovascular: Normal peripheral perfusion Respiratory: no respiratory distress Gastrointestinal: Non distended Groin: Wound VAC dressings in place bilaterally. Mild firmness in right groin,, no pulsatility, no ecchymoses no evidence of expanding hematoma, left groin soft no pulsatility no expanding hematoma. Musculoskeletal: No deformity, good capillary refill, palpable pulse right tibialis anterior Results & Data Results & Data ([facility]) Vital Signs (Past 12 Hours) Vital Signs Temp Pulse Resp BP Pulse Ox 05/03/22 06:00 103 H 21 93 05/03/22 06:00 101/81 05/03/22 05:31 81 4 L 96 05/03/22 05:31 117/75 05/03/22 05:00 83 20 96 05/03/22 05:00 117/90 05/03/22 04:30 111/87 05/03/22 04:30 80 28 H 96 05/03/22 04:00 86 21 96 05/03/22 04:00 36.7 C 114/81 05/03/22 03:30 116/77 05/03/22 03:30 82 13 97 05/03/22 03:00 82 16 97 05/03/22 03:00 110/80 05/03/22 02:30 103/72 05/03/22 02:30 80 8 L 94 05/03/22 02:00 85 25 H 95 05/03/22 02:00 99/75 L 05/03/22 01:30 80 13 96 05/03/22 01:30 101/75 05/03/22 01:00 76 16 94 05/03/22 01:00 98/66 L 05/03/22 00:30 93/67 L 05/03/22 00:30 77 22 97 05/03/22 00:00 91 H 6 L 92 05/03/22 00:00 98/68 L 05/02/22 23:30 81 13 97 05/02/22 23:30 104/64 05/02/22 23:00 78 7 L 96 05/02/22 23:00 115/74 05/02/22 22:30 110/79 05/02/22 22:30 79 10 L 95 05/02/22 22:00 77 14 96 05/02/22 22:00 108/70 05/02/22 21:30 36.7 C 112/75 05/02/22 21:30 76 1 L 96 05/02/22 21:00 74 19 96 05/02/22 21:00 115/80 05/02/22 20:30 124/74 05/02/22 20:30 78 19 95 05/03/22 04:00 81 118/73 05/03/22 00:00 80 100/67 Critical Care Results & Data Vital Signs (Past 12 Hours) Vital Signs Temp Pulse Resp BP Pulse Ox 05/03/22 06:00 103 H 21 93 05/03/22 06:00 101/81 05/03/22 05:31 81 4 L 96 05/03/22 05:31 117/75 05/03/22 05:00 83 20 96 05/03/22 05:00 117/90 05/03/22 04:30 111/87 05/03/22 04:30 80 28 H 96 05/03/22 04:00 86 21 96 05/03/22 04:00 36.7 C 114/81 05/03/22 03:30 116/77 05/03/22 03:30 82 13 97 05/03/22 03:00 82 16 97 05/03/22 03:00 110/80 05/03/22 02:30 103/72 05/03/22 02:30 80 8 L 94 05/03/22 02:00 85 25 H 95 05/03/22 02:00 99/75 L 05/03/22 01:30 80 13 96 05/03/22 01:30 101/75 05/03/22 01:00 76 16 94 05/03/22 01:00 98/66 L 05/03/22 00:30 93/67 L 05/03/22 00:30 77 22 97 05/03/22 00:00 91 H 6 L 92 05/03/22 00:00 98/68 L 05/02/22 23:30 81 13 97 05/02/22 23:30 104/64 05/02/22 23:00 78 7 L 96 05/02/22 23:00 115/74 05/02/22 22:30 110/79 05/02/22 22:30 79 10 L 95 05/02/22 22:00 77 14 96 05/02/22 22:00 108/70 05/02/22 21:30 36.7 C 112/75 05/02/22 21:30 76 1 L 96 05/02/22 21:00 74 19 96 05/02/22 21:00 115/80 05/02/22 20:30 124/74 05/02/22 20:30 78 19 95 05/03/22 04:00 81 118/73 05/03/22 00:00 80 100/67 Lab & Micro Results (Past 24 Hours) RBC 4.50 M/uL (4.63-6.08) L 05/03/22 WBC 16.86 K/ul (4.8-10.8) H 05/03/22 Hgb 13.3 g/dl (14.0-18.0) L 05/03/22 Hct 39.2 % (40.1-51.0) L 05/03/22 MCV 87.1 fL (80.0-100.0) 05/03/22 MCH 29.6 pg (25.0-34.0) 05/03/22 MCHC 33.9 g/dL (32.0-36.0) 05/03/22 RDW Standard Deviation 47.2 fL (36.4-46.3) H 05/03/22 RDW Coefficient of Variation 14.7 % (11.5-14.5) H 05/03/22 Plt Count 214 K/uL (130-400) 05/03/22 MPV 10.7 fL (9.4-12.4) 05/03/22 Neutrophils (%) (Auto) 82.6 % 05/03/22 Lymphocytes (%) (Auto) 9.0 % 05/03/22 Monocytes # (Auto) 1.34 K/uL (0.24-0.82) H 05/03/22 Eosinophils # (Auto) 0.00 K/uL (0-0.50) 05/03/22 Immature Granulocyte % (Auto) 0.4 % 05/03/22 Neutrophils # (Auto) 13.92 K/uL (1.4-6.5) H 05/03/22 Lymphocytes # (Auto) 1.52 K/uL (1.2-3.4) 05/03/22 Monocytes # (Auto) 1.34 K/uL (0.24-0.82) H 05/03/22 Eosinophils # (Auto) 0.00 K/uL (0-0.50) 05/03/22 Basophils # (Auto) 0.02 K/uL (0-0.2) 05/03/22 Immature Granulocyte # (Auto) 0.06 K/uL (0.00-0.02) H 05/03 Na 131 mmol/L (136-145) L 05/03/22 K 5.0 mmol/L (3.5-5.1) 05/03/22 Cl 100 mmol/L (98-107) 05/03/22 CO2 22 mmol/L (21-32) 05/03/22 Anion Gap 9 (3-11) 05/03/22 BUN 32 mg/dl (6-23) H 05/03/22 Creatinine 1.17 mg/dl (0.6-1.4) 05/03/22 Estimated GFR ( Amer) 71.3 ml/min 05/03/22 Estimated GFR (Non-Af Amer) 61.5 ml/min 05/03/22 BUN/Creatinine Ratio 27.4 (10-20) H 05/03/22 Glu 167 mg/dl (70-99(Fasting)) H 05/03/22 Ca 9.0 mg/dl (8.5-10.1) 05/03/22 Phosphorus Level 4.7 mg/dl (2.5-4.9) 05/03/22 Mg 2.1 mg/dl (1.7-2.4) 05/03/22 03:22 Calcium Level 9.0 mg/dl (8.5-10.1) 05/03/22 03:22 I & O Totals 24 Hours 05/02/22 05/03/22 05/04/22 06:59 06:59 06:59 Intake Total 242.667 / 722.665 3615.749 / 2565.749 180.367 / 180.367 Output Total 1730 / 1730 1105 / 1105 Balance -1487.333 / -6235.435 3189.749 / 1460.749 180.367 / 180.367 Cumulative 04/30/22 09:47 thru 05/03/22 08:04 Intake Total 4218.566 Output Total 3285 Balance 933.566 RT Ventilator Mngmt (Last Documented) Ventilator Ordered Settings Respiratory Rate 21 05/03/22 06:00 Ventilator - PT Measurements Respiratory Rate 21 Coding Level of Care Code 60001 Subseq Hosp Care Lvl 3 Diagnoses Acute occlusion of aortoiliac artery I74.09 Atrial fibrillation with rapid ventricular response I48.91 CAD (coronary artery disease) I25.10 Hyperlipidemia E78.5 Obesity, diabetes, and hypertension syndrome E11.69; E11.59; E66.9; I15.2 Gout M10.9
[2022-05-03] MEDS: ASPIRIN 81 MG ECTAB PO SCH (09:00)
[2022-05-03] MEDS: allopurinoL 100 MG TAB PO SCH (09:00)
[2022-05-03] MEDS: CLOPIDOGREL BISULFATE 75 MG TAB PO SCH (09:00)
[2022-05-03] MEDS: METOPROLOL SUCC 50MG EXT REL TAB PO SCH (09:00)
--- NOTE | 2022-05-03 09:33 | Surgery Progress Note ---
Date of Service May 03, 2022 Assessment & Plan (1) Acute occlusion of aortoiliac artery: Plan: This gentleman is postoperative day 1 from a embolectomy of bilateral iliac, common femoral, and profundofemoral arteries. He did have chronically occluded superficial femoral arteries. Raffaele was only be able to pass approximately 20 cm but no clot was retrieved from the superficial femoral arteries. He does have a small hematoma in both groins and medial aspect which is not surprising. We will DC his Gimenez and art line. Vascular spencer he could be transferred out of the unit as per his primary service. He is having some discomfort with moving he therefore will need OT and PT treatment. Admission and Anticipated Discharge Date Admission Date: April 30, 2022 Subjective Patient complains of bilateral incisional groin pain. He claims his right foot feels good. He says his left foot is a little numb but he does now feel sensa tion in the toes when touched. Denies any calf or foot pain bilaterally. Physical Exam Constitutional: WD/WN, vitals as above Respiratory: normal respiratory effort; no respiratory distress Cardiovascular: Rate/Rhythm: + irregularly irregular; not tachycardic Extremities: normal capillary refill (Slightly decreased in both lower extremities.) He does have a faint dorsalis pedis Doppler on the right no Doppler on the left however clinically his feet do not look ischemic. Musculoskeletal: Extremities: strength 5/5 throughout Skin: + incision (There are small sized hematomas in the medial side of both groin incisions.) The Prevena dressings are working well. Neurologic: CN's II-XI intact bilaterally, normal sensation to monofilament (He does now feel sensation in the left foot which was not there prior to OR) and moves all extremities; no focal motor deficits Psychiatric: Orientation: alert and oriented x 3 Results & Data ([facility]) Vital Signs (Past 12 Hours) Vital Signs Temp Pulse Resp BP Pulse Ox 05/03/22 06:00 103 H 21 93 05/03/22 06:00 101/81 05/03/22 05:31 81 4 L 96 05/03/22 05:31 117/75 05/03/22 05:00 83 20 96 05/03/22 05:00 117/90 05/03/22 04:30 111/87 05/03/22 04:30 80 28 H 96 05/03/22 04:00 86 21 96 12/17/22 04:00 36.7 C 114/81 05/03/22 03:30 116/77 05/03/22 03:30 82 13 97 05/03/22 03:00 82 16 97 05/03/22 03:00 110/80 05/03/22 02:30 103/72 05/03/22 02:30 80 8 L 94 05/03/22 02:00 85 25 H 95 05/03/22 02:00 99/75 L 05/03/22 01:30 80 13 96 05/03/22 01:30 101/75 05/03/22 01:00 76 16 94 05/03/22 01:00 98/66 L 05/03/22 00:30 93/67 L 05/03/22 00:30 77 22 97 05/03/22 00:00 91 H 6 L 92 05/03/22 00:00 98/68 L 05/02/22 23:30 81 13 97 05/02/22 23:30 104/64 05/02/22 23:00 78 7 L 96 05/02/22 23:00 115/74 05/02/22 22:30 110/79 05/02/22 22:30 79 10 L 95 05/02/22 22:00 77 14 96 05/02/22 22:00 108/70 05/02/22 21:30 36.7 C 112/75 05/02/22 21:30 76 1 L 96 05/03/22 04:00 81 118/73 05/03/22 00:00 80 100/67
[2022-05-03] MEDS ORDERED: HYDROmorphone INJ 0.5 MG/0.5 ML SYR IV STA (09:49)
--- NOTE | 2022-05-03 09:49 | Cardiology Progress Note ---
Date of Service May 03, 2022 Assessment & Plan (1) Permanent atrial fibrillation: (2) AICD (automatic cardioverter/defibrillator) present: (3) Anticoagulant long-term use: (4) Ischemic cardiomyopathy: Plan 1. Atrial fibrillation: Considered permanent at this point, and I do not know if attempts have been made to maintain sinus rhythm. His rate is fast and in part that is due to inappropriate ventricular pacing. If it is inappropriate tracking of atrial activity medications will have limited value since it is a pacing function. 2. Dual-chamber ICD: I reviewed his programming from his last device interrogation (which was sometime ago) and he does not have rate smoothing on at that time but was programmed DDD. This is therefore likely inappropriate atrial sensing with ventricular pacing, unless rate smoothing was turned on subsequently. This should be reprogrammed. 3. Anticoagulation: Unfortunately anticoagulation is quite risky, but perhaps necessary. It is concerning giving his history of [employer] bleeds but with his presentation with multiple emboli we probably have 2 except considerable anticoagulant risk. 4. Cardiomyopathy: Surprisingly he does not have a lot of heart failure findings, but frequent ventricular pacing with a wide-complex at an irregular rate is certainly detrimental to cardiac function. Atrial fibrillation with its irregular rate, even with a narrow complex, can also be detrimental. I agree with reinstating his heart failure medications. Admission and Anticipated Discharge Date Admission Date: April 30, 2022 Subjective Events of the presentation and hospitalization reviewed. In brief he has a severe ischemic cardiomyopathy and had bypass surgery in 2019 with an atrial appendage exclusion procedure. He has had a subdural hematoma and a medullary CVA as well as recent subarachnoid hemorrhage and now has an aortoiliac occlusion. He has atrial fibrillation which has been present for 7 or 8 months and may be permanent with a borderline rate control and recent ICD shocks in December 2021 for atrial fibrillation with rapid ventricular response. He has an ICD, [employer], which is followed by [facility]. He underwent iliac artery embolectomy on May 02, 2022. An echocardiogram May 02, 2022 shows an ejection fraction of less than 15% with an apical thrombus. At the time of my evaluation he is sitting in a chair at his bedside, he is not complaining of any discomfort and is quite sleepy. He is communicative but not very descriptive of his symptoms. Physical Exam Physical Exam: Constitutional: Alert but sleepy, cooperative and in no obvious distress. HEENT: Unremarkable Neck: No jugular venous distention, carotid pulses are irregular and rapid but otherwise normal and equal bilaterally without bruits. Pulmonary: Clear to auscultation bilaterally. Cardiac: Irregular rapid rhythm with no murmur, gallop or rub. Abdomen: Soft, nontender with normal bowel sounds. Extremities: No edema. Neurologic: No focal findings. Gait was not tested. Skin: No rash, ecchymoses or petechiae. Groin hematoma. Results & Data ([facility]) Vital Signs (Past 12 Hours) Vital Signs Temp Pulse Resp BP Pulse Ox 05/03/22 06:00 103 H 21 93 05/03/22 06:00 101/81 05/03/22 05:31 81 4 L 96 05/03/22 05:31 117/75 05/03/22 05:00 83 20 96 05/03/22 05:00 117/90 05/03/22 04:30 111/87 05/03/22 04:30 80 28 H 96 05/03/22 04:00 86 21 96 05/03/22 04:00 36.7 C 114/81 05/03/22 03:30 116/77 05/03/22 03:30 82 13 97 05/03/22 03:00 82 16 97 05/03/22 03:00 110/80 05/03/22 02:30 103/72 05/03/22 02:30 80 8 L 94 05/03/22 02:00 85 25 H 95 05/03/22 02:00 99/75 L 05/03/22 01:30 80 13 96 05/03/22 01:30 101/75 05/03/22 01:00 76 16 94 05/03/22 01:00 98/66 L 05/03/22 00:30 93/67 L 05/03/22 00:30 77 22 97 05/03/22 00:00 91 H 6 L 92 05/03/22 00:00 98/68 L 05/02/22 23:30 81 13 97 05/02/22 23:30 104/64 05/02/22 23:00 78 7 L 96 05/02/22 23:00 115/74 05/02/22 22:30 110/79 05/02/22 22:30 79 10 L 95 05/02/22 22:00 77 14 96 05/02/22 22:00 108/70 05/03/22 04:00 81 118/73 05/03/22 00:00 80 100/67 Laboratory Results Coagulation 05/02/22 05/02/22 05/02/22 Range/Units 15:00 16:55 23:05 APTT 97.9 H* 78.5 H* 51.3 H* (21.0-31.0) Seconds 05/03/22 Range/Units 06:58 APTT 47.6 H* (21.0-31.0) Seconds CBC 05/02/22 05/03/22 Range/Units 15:00 03:22 WBC 16.20 H 16.86 H (4.8-10.8) K/ul RBC 4.76 4.50 L (4.63-6.08) M/uL Hgb 14.1 13.3 L (14.0-18.0) g/dl Hct 41.5 39.2 L (40.1-51.0) % Plt Count 187 214 (130-400) K/uL Neut # (Auto) 13.13 H 13.92 H (1.4-6.5) K/uL Lymph # (Auto) 1.96 1.52 (1.2-3.4) K/uL [place] # (Auto) 0.93 H 1.34 H (0.24-0.82) K/uL Eos # (Auto) 0.02 0.00 (0-0.50) K/uL Baso # (Auto) 0.05 0.02 (0-0.2) K/uL Comprehensive Metabolic Panel 05/02/22 05/03/22 Range/Units 15:00 03:22 Sodium 135 L 131 L (136-145) mmol/L Potassium 4.2 5.0 (3.5-5.1) mmol/L Chloride 102 100 (98-107) mmol/L Carbon Dioxide 22 22 (21-32) mmol/L BUN 24 H 32 H (6-23) mg/dl Creatinine 0.73 1.17 D (0.6-1.4) mg/dl Glucose 171 H 167 H (70-99(Fasting)) mg/dl Calcium 8.6 9.0 (8.5-10.1) mg/dl Intake and Output 05/02/22 05/03/22 05/03/22 22:59 06:59 14:59 Intake Total 1669.733 / 2565.749 594.083 / 2565.749 180.367 / 180.367 Output Total 690 / 1105 90 / 1105 Balance 979.733 / 1460.749 504.083 / 1460.749 180.367 / 180.367 Intake: IV 469.733 / 1365.749 594.083 / 1365.749 180.367 / 180.367 Clindamycin/D5w 600 mg In 50 ml 50 / 100 50 / 100 @ 100 mls/hr IV Q8H [facility] Rx#: [id number] Heparin Sodium/Dextrose 25,000 355.733 / 367.333 172.7 / 172.7 units In 500 ml @ 1,100 UNITS/ HR 22 mls/hr IV .[id number] [facility] Rx #:[id number] Sodium Chloride 0.9% 1000ML 500 500 / 500 ml @ 999 mls/hr IV .Q31M [facility] Rx#:[id number] dilTIAZem HCL 125 mg In 64.000 / 148.416 44.083 / 148.416 7.667 / 7.667 Dextrose 5% 100 ml @ 5 MG/HR 5 mls/hr IV .Q24H [facility] Rx#: [id number] IV Perioperative 1000 / 1000 Oral 200 / 200 Output: Estimated Blood Loss 100 / 100 Urine Amount (Catheter) 590 / 1005 90 / 1005 Gimenez/Indwelling 590 / 1005 90 / 1005 Other: Weight 108.4 kg Weight Measurement Method Built in [facility] Diagnostic Findings Telemetry: Atrial fibrillation currently with a rapid heart rate, it appears that the majority of his complexes are actually paced. PG Care Time/CCT Total # of Minutes Spent Total Time Spent with Patient: Total time spent is greater than 50% in coordination of care (as documented) at patient's floor/unit and/or counseling patient: Coding Level of Care Code 56511 Subseq Hosp Care Lvl 3 Diagnoses Permanent atrial fibrillation I48.21 AICD (automatic cardioverter/defibrillator) present Z95.810 Anticoagulant long-term use Z79.01 Ischemic cardiomyopathy I25.5
[2022-05-03] MEDS: ATORVASTATIN 40 MG TAB PO SCH (14:32)
[2022-05-03] MEDS ORDERED: LOPERAMIDE HCL 2 MG CAP PO PRN (17:14)
[2022-05-03] MEDS: SODIUM CHLORIDE 0.9% 1000ML 1,000 ML IV SCH (17:34)
[2022-05-03] MEDS: rOPINIRole HCL 0.25 MG TABLET PO SCH (20:56)
[2022-05-03] MEDS: ESCITALOPRAM OXALATE 10 MG TAB PO SCH (20:57)
--- NOTE | 2022-05-03 22:08 | Hospitalist Progress Note ---
Date of Service May 03, 2022 Assessment & Plan (1) Acute occlusion of aortoiliac artery: Plan: 71 yo male with acute occulison of aortoiliac artery. Patient has history of atrial fibrillation. Has history of hemorrhagic stroke about 3 years ago. Patient had history of chronic subdural hematoma. heparin was initially started but then placed on hold. Awaiting ct scan. discussed with Dr. Rico, and he is aware of he current situation. concern over subarachnoid hemorrhage, however, patient is not complaining of a headache. will need to hold heparin though if CT scan cannot rule out subarachnoid hemorrhage. ON 05/01 Extremities appear colder today. And patient is now complaining of his being numb. Thankfully he is still able to move his leg. Informed Dr. Rico multiple times of the patients progression of his symptoms. on 05/02 Patient is currently in the ICU, had an a line to help monitor his pressures. Due to an elevated HR on 05/01, he went into RVR, patient's procedure hadd to be stopped as he was defibrillated. He has since been placed on a diltiazem drip. Patient will be going later today for the thrombectomy. His HR is better controlled, given his low EF, will likley switch his diltiazem to a beta roseanne. 05/03 Patient developed a left hematoma on his left groin, will monitor. S/p embolectomy of bilateral iliac, common femoral, and profundofemoral arteries. He did have chronically occluded superficial femoral arteries. will keep in unit one more day and transfer out in 05/04 will need to be trasnsitioned either to eliquis or warfarin. Patient has apical thrombus which likely was cause of this arterial occlusion. (2) Atrial fibrillation with rapid ventricular response: Plan: HR is elevated between 100-130s. will increase beta roseanne. (3) Ischemic cardiomyopathy: Plan: Chronic HFrEF currently patient is not in acute HFrEF. will monitor. Admission and Anticipated Discharge Date Admission Date: April 30, 2022 Subjective Patient reports his pain in his affected extremity is better. Review of Systems Review of Systems: All systems reviewed & are unremarkable except as noted in HPI & below Physical Exam Constitutional: WD/WN, vitals as above Eyes: PERRL, conjunctivae normal, anicteric sclerae ENMT: external ear and nose normal, oropharynx normal Neck: trachea midline, no thyromegaly Respiratory: normal respiratory effort, lungs clear to auscultation Cardiovascular: RRR, no murmur, no edema Gastrointestinal (Abdomen): normal bowel sounds, soft, nontender, no hepatosplenomegaly Musculoskeletal: no cyanosis or clubbing, extremities motor strength 5/5 (left leg did not feel colder than his right, normal strength) Skin: no rashes, warm and dry Neurologic: PERRL, EOMI, accommodation nl, no face palsy, no dysarthria Psychiatric: A+Ox3, euthymic affect Lymphatic: no cervical or axillary lymphadenopathy Results & Data Results & Data ([facility]) Vital Signs (Past 12 Hours) Vital Signs Temp Pulse Resp BP Pulse Ox 05/03/22 21:02 92/66 L 05/03/22 21:02 132 H 19 94 05/03/22 20:33 122 H 10 L 93 05/03/22 20:33 80/58 L 05/03/22 18:41 121 H 10 L 99 05/03/22 18:41 81/64 L 05/03/22 18:01 110 H 16 76/64 L 96 05/03/22 17:01 120 H 20 112/75 94 05/03/22 16:00 100 H 22 109/71 93 05/03/22 15:00 119 H 12 102/70 05/03/22 14:01 104 H 20 128/81 91 05/03/22 13:00 128 H 20 90 05/03/22 12:56 36.6 C 05/03/22 12:01 104 H 17 118/78 96 05/03/22 11:01 127 H 14 112/78 88 L PG Care Time/CCT Total # of Minutes Spent Total Time Spent with Patient: Total time spent is greater than 50% in coordination of care (as documented) at patient's floor/unit and/or counseling patient: Coding Level of Care Code 68680 Subseq Hosp Care Lvl 3 Diagnoses Acute occlusion of aortoiliac artery I74.09 Atrial fibrillation with rapid ventricular response I48.91 Ischemic cardiomyopathy I25.5
[2022-05-03] MEDS: HEPARIN SODIUM/DEXTROSE 25,000 UNITS/500 ML BAG IV SCH (22:30)
[2022-05-03] MEDS: dilTIAZem HCL 125 MG in DEXTROSE 5% 100 ML IV SCH (23:10)
[2022-05-04 06:34] LABS: Hematocrit (blood only) 35.7 % (40.1-51.0); Hemoglobin 11.8 g/dl (14.0-18.0); Mean Corpuscular Hemoglobin 29.8 pg (25.0-34.0); Mean Corpuscular Hgb Conc 33.1 g/dL (32.0-36.0); Mean Corpuscular Volume 90.2 fL (80.0-100.0); Mean Platelet Volume 11.7 fL (9.4-12.4); Nucleated RBC # (auto) 0.02 K/uL (0-0); Nucleated RBC % (auto) 0.1 %; Platelet Count 208 K/uL (130-400); RDW Coefficient of Variation 14.7 % (11.5-14.5); RDW Standard Deviation 48.2 fL (36.4-46.3); Red Blood Count 3.96 M/uL (4.63-6.08); White Blood Count 15.32 K/ul (4.8-10.8)
[2022-05-04 07:26] LABS: BUN Creatinine Ratio 20.1 (10-20); Calcium 8.2 mg/dl (8.5-10.1); Creatinine Clr Calc Pharmacy 30.7 ml/min; Est GFR (African American) 24.4 ml/min; Magnesium 2.2 mg/dl (1.7-2.4); Phosphorus 7.5 mg/dl (2.5-4.9); Potassium 4.9 mmol/L (3.5-5.1)
[2022-05-04] MEDS: CLOPIDOGREL BISULFATE 75 MG TAB PO SCH (08:37)
[2022-05-04] MEDS: allopurinoL 100 MG TAB PO SCH (08:37)
[2022-05-04] MEDS: METOPROLOL SUCC 50MG EXT REL TAB PO SCH (08:37)
[2022-05-04] MEDS: ASPIRIN 81 MG ECTAB PO SCH (08:37)
[2022-05-04] MEDS: HYDROmorphone INJ 0.5 MG/0.5 ML SYR IV PRN ×4 (08:38→23:44)
[2022-05-04] MEDS: SODIUM CHLORIDE 0.9% 1000ML 1,000 ML IV SCH (08:39)
[2022-05-04 09:27] LABS: Partial Thromboplastin Ratio 1.5; Partial Thromboplastin Time 42.4 Seconds (21.0-31.0)
--- NOTE | 2022-05-04 09:35 | CT Scan Report ---
CT abd pelvis wo con CLINICAL HISTORY: STACY, r/o obstructive cause TECHNIQUE: Helical axial images of the abdomen and pelvis were obtained. Automated dose lowering tech niques and/or adjustment according to patient size were utilized for this exam. This exam was perfor med without intravenous contrast. CT DOSE: 931.64 mGy.cm COMPARISON: Comparison is made to CT abdomen pelvis 04/30/2022 FINDINGS: Lower chest: Pronounced cardiomegaly is seen with a left subclavian pacemaker. Bronchiectasis and br onchial wall thickening are seen. Liver: Unremarkable. No focal lesions are seen. Gallbladder and biliary tree: Vicarious excretion of contrast is incidentally noted. No intra- or ext rahepatic biliary ductal dilation. Pancreas: The pancreas is atrophic. Spleen: Unremarkable. Adrenals: Unremarkable. Kidneys and ureters: Perinephric stranding is noted bilaterally. A cyst is in the left kidney superio r pole. No evidence of hydronephrosis or hydroureter is seen. Bladder: Gimenez catheter is seen. Reproductive organs: Unremarkable. Bowel: There is loss of haustration in the sigmoid colon. A few diverticula are seen. The appendix is normal. Lymph nodes Retroperitoneal: Unremarkable. Pelvic: Unremarkable. Mesenteric: Unremarkable. Peritoneum: Normal. 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 Extensive atherosclerotic change is seen . Abdominal wall: Prominent bilateral hematomas and subcutaneous emphysema are seen in the bilateral gr oin compatible with recent percutaneous intervention. Bones: Degenerative changes in the visualized spine. IMPRESSION: 1. No evidence of hydronephrosis or hydroureter in this patient with acute renal failure. 2. Bilateral groin hematomas in this patient with recent percutaneous vascular intervention. 3. Ahaustral appearance of the sigmoid colon is nonspecific, clinical correlation for colitis is rec ommended. 4. Additional stable findings as above. ACT 112: Negative or not required by law. Electronically signed by: Raleigh Mayen M.D. 05/04/2022 9:33 AM
[2022-05-04 10:03] LABS: Appearance Urine Cloudy (Clear); Bacteria Urine Automated Negative (Negative); Bilirubin Urine Negative (Negative); Blood Urine 2+ (Negative); Color Urine Dark Yellow; Epithelial Cell Urine Auto >30 /lpf (0-5); Glucose Urine UA Negative (Negative); Ketones Urine Trace (Negative); Leukocyte Esterase Urine 1+ (Negative); Nitrite Urine Negative (Negative); Protein Urine Trace (Negative); Specific Gravity Urine 1.019 (1.000-1.030); Urobilinogen Urine Negative (Negative)
[2022-05-04 10:24] LABS: Calcium Oxalate Crystals Urine Present (None Prsent); Sperm Urine Present (None Prsent)
[2022-05-04 10:30] LABS: Cast Urine Automated >30 /lpf (0-5)
--- NOTE | 2022-05-04 10:42 | Hospitalist Progress Note ---
Date of Service May 04, 2022 Assessment & Plan (1) Acute occlusion of aortoiliac artery: Plan: Apical thrombus, a. fib likely cause of arterial occlusion Initial thrombectomy cancelled on 05/01 due to a. fib with rates 190-210. s/p Bilateral Iliac and Femoral Embolectomy, Left Common Femoral Artery Endarterectomy with Bovine Patch, Right Common Artery Patch Angioplasty (Left) - performed by Dr Sharp [05/02] On heparin IV drip since then, planning on switch to DOAC vs. warfarin on discharge. (2) Atrial fibrillation with rapid ventricular response: Plan: HR is elevated between 100-130s. On metoprolol succinate 150mg PO daily since 05/01 on 05/01 transferred to ICU; required x6 5mg IV metoprolol + digoxin 125mcg IV, diltiazem started 5mg/hr 05/01 23:00 on 05/02 required x3 5mg IV metoprolol whilst also receiving oral metoprolol and dilt drip @ 5mg /hr on 05/03 diltiazem continued but rate changed 2.5mg/hr @ 5:00am, then 0mg/hr @ 05/03 8:00am. Off diltiazem drip since then and rate appears to have increased throughout yesterday with associated hypotension. Significant hypotension 76/64 @ 18:00 on 05/03 although no definitive cause for this other than rate related as off diltiazem at that time, no new antihypertensives given, he is not more anemic. However he received Dilaudid 0.5mg IV x4 and reportedly not eating or drinking much yesterday due to a large BM. Discussed with Dr Hopper today and agree with increasing metoprolol succinate and adding digoxin. Rate appears to be inappropriate (despite increase in his usual outpatient rate controlling meds) and hopefully BP will improve with better control + IV fluids. Anticoagulation with IV heparin as above (3) STACY (acute kidney injury): Plan: Significant Cr jump to 2.84 this morning from baseline 0.73 CT A/P r/o obstructive cause UA concerning for hyaline and granular casts. Suspected ATN in setting of hypotension previously with A. fib RVR +/- possible emboli given recent thrombectomy. Already on dual antiplatelets and heparin therefore would not change treatment for possible emboli. BP today appears better controlled with improvement with HR. Hopefully insult has happened and we see downtrend in 2-4 days. Gimenez catheter placed 05/04 to accurately measure urine output Consult nephrology - discussed with Dr Cordero and will place patient on maintenance Normosol. (4) Ischemic cardiomyopathy: Plan: LVEF < 15% with chronic HFrEF currently patient is not in acute HFrEF -> carefully monitor for hypervolemia with IV fluids given as also received NSS yesterday. Continue metoprolol succinate as above (5) LV (left ventricular) mural thrombus: Plan: Anticoagulation as above (6) Restless leg syndrome: Plan: Continue ropinirole 0.5mg @ 8pm (7) Subarachnoid hemorrhage: Plan: History of subdural hematoma in August 2020. 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 trace subarachnoid hemorrhage, less apparent on repeat scan. Low threshold to repeat if he develops a headache since he is on DAPT and anticogulation. (8) Gout: Plan: Continue allopurinol 100mg PO daily (9) CAD (coronary artery disease): Plan: Continue aspirin, clopidogrel, metoprolol, atorvastatin Plan VTE Prophylaxis - heparin IV Diet - heart healthy, T2DM Disposition - continue on PCU Admission and Anticipated Discharge Date Admission Date: April 30, 2022 Subjective Patient reports no chest pain, shortness of breath or dizziness. No urinary symptoms. No fever or chills. No worsening of his leg pain or temperature. Updated his daughter over the phone. Review of Systems Review of Systems: All systems reviewed & are unremarkable except as noted in Subjective Physical Exam Constitutional: WD/WN, vitals as above Respiratory: normal respiratory effort; no respiratory distress Auscultation: + diminished lung sounds (bibasal); no crackles, no rales, no rhonchi and no wheezes Cardiovascular: Rate/Rhythm: + tachycardic and + irregularly irregular Heart Sounds: no murmur Extremities: normal capillary refill (b/l toes) and + pedal edema Gastrointestinal (Abdomen): Percussion/Palpation: + abdomen tender (LLQ) and abdomen soft; no guarding and abdomen not rigid Skin: no rashes, warm and dry Neurologic: moves all extremities and awake; not confused Psychiatric: A+Ox3, euthymic affect Genitourinary: no CVA tenderness Results & Data Results & Data ([facility]) Vital Signs (Past 12 Hours) Vital Signs Temp Pulse Resp BP Pulse Ox O2 Del Method 05/04/22 10:02 120 H 22 93 05/04/22 10:02 94/67 L 05/04/22 10:00 122 H 14 90 05/04/22 09:45 96/49 L 05/04/22 09:45 132 H 24 94 05/04/22 08:30 153 H 22 95 05/04/22 08:13 128 H 17 94 05/04/22 08:13 134/89 05/04/22 08:00 123 H 18 05/04/22 08:00 130/105 H 05/04/22 07:30 117 H 16 99 Room Air 05/04/22 07:01 120 H 24 92 05/04/22 07:01 98/70 L 05/04/22 07:00 108 H 16 05/04/22 08:00 36.5 C Room Air 05/04/22 06:00 106 H 23 92 05/04/22 05:01 123/82 05/04/22 05:00 119 H 19 88 L 05/04/22 04:01 113 H 19 94 05/04/22 04:01 116/84 05/04/22 03:01 113/66 05/04/22 03:01 120 H 24 89 L 05/04/22 01:01 125 H 21 93 05/04/22 01:01 109/76 05/03/22 23:01 112 H 18 95 05/03/22 23:01 133/56 L PG Care Time/CCT Total # of Minutes Spent Total Time Spent with Patient: Total time spent is greater than 50% in coordination of care (as documented) at patient's floor/unit and/or counseling patient: Coding Level of Care Code 51590 Subseq Hosp Care Lvl 3 Diagnoses Acute occlusion of aortoiliac artery I74.09 Atrial fibrillation with rapid ventricular response I48.91 STACY (acute kidney injury) N17.9 Ischemic cardiomyopathy I25.5 LV (left ventricular) mural thrombus I51.3 Restless leg syndrome G25.81 Subarachnoid hemorrhage I60.9 Gout M10.9 CAD (coronary artery disease) I25.10
[2022-05-04 10:43] LABS: Albumin Level 3.5 gm/dl (3.4-5.0); Bilirubin Direct 0.2 mg/dl (0-0.2); Bilirubin,Total 0.8 mg/dl (0.2-1.0); Total Protein 6.5 gm/dl (6.0-8.3)
--- NOTE | 2022-05-04 11:02 | Cardiology Progress Note ---
Date of Service May 04, 2022 Assessment & Plan (1) Permanent atrial fibrillation: (2) AICD (automatic cardioverter/defibrillator) present: (3) Anticoagulant long-term use: (4) Ischemic cardiomyopathy: Plan 1. Atrial fibrillation: Considered permanent at this point, and I do not know if attempts have been made to maintain sinus rhythm. His rate is fast and in part that is due to inappropriate ventricular pacing. I have reprogrammed the pacing portion of his defibrillator to VVIR 70, to minimize ventricular pacing but allow his heart rate to remain reasonably high. If his heart rate improves once his clinical status improves and his medications take cold we may want to decrease that pacing rate to 60 to minimize ventricular pacing. I am going to increase his metoprolol succinate to 200 mg daily starting today and I am going to add digoxin to his regimen to control heart rate. I will give him 0.5 mg of digoxin today and check a level tomorrow but not put him on a daily dose pending his kidney function. 2. Dual-chamber ICD: Interrogation of his ICD was performed, it is functioning well however it is tracking atrial activity and I have therefore reprogrammed to VVIR mode. This will minimize ventricular pacing. I made no changes to his tachycardia settings. 3. Anticoagulation: Unfortunately anticoagulation is quite risky, but perhaps necessary. 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 4. Cardiomyopathy: Surprisingly he does not have a lot of heart failure findings, but frequent ventricular pacing with a wide-complex at an irregular rate is certainly detrimental to cardiac function, he will not pacing the ventricle now unless his heart rate drops to 70 or lower. Atrial fibrillation with its irregular rate, even with a narrow complex, can also be detrimental. Admission and Anticipated Discharge Date Admission Date: April 30, 2022 Subjective He has no specific cardiac complaints today, he has no awareness of his atrial fibrillation. No chest pain or shortness of breath while laying supine. Physical Exam Physical Exam: Constitutional: Alert but sleepy, cooperative and in no obvious distress. HEENT: Unremarkable Neck: No jugular venous distention, carotid pulses are irregular and rapid but otherwise normal and equal bilaterally without bruits. Pulmonary: Clear to auscultation bilaterally. Cardiac: Irregular rapid rhythm with no murmur, gallop or rub. Abdomen: Soft, nontender with normal bowel sounds. Extremities: No edema. Neurologic: No focal findings. Gait was not tested. Skin: No rash, ecchymoses or petechiae. Groin hematoma. Results & Data ([facility]) Vital Signs (Past 12 Hours) Vital Signs Temp Pulse Resp BP Pulse Ox O2 Del Method 05/04/22 10:02 120 H 22 93 05/04/22 10:02 94/67 L 05/04/22 10:00 122 H 14 90 05/04/22 09:45 96/49 L 05/04/22 09:45 132 H 24 94 05/04/22 08:30 153 H 22 95 05/04/22 08:13 128 H 17 94 05/04/22 08:13 134/89 05/04/22 08:00 123 H 18 05/04/22 08:00 130/105 H 05/04/22 07:30 117 H 16 99 Room Air 05/04/22 07:01 120 H 24 92 05/04/22 07:01 98/70 L 05/04/22 07:00 108 H 16 05/04/22 08:00 36.5 C Room Air 05/04/22 06:00 106 H 23 92 05/04/22 05:01 123/82 05/04/22 05:00 119 H 19 88 L 05/04/22 04:01 113 H 19 94 05/04/22 04:01 116/84 05/04/22 03:01 113/66 05/04/22 03:01 120 H 24 89 L 05/04/22 01:01 125 H 21 93 05/04/22 01:01 109/76 Laboratory Results Cardiac Enzymes 05/04/22 Range/Units 08:24 AST 111 H (13-39) U/L Coagulation 05/04/22 Range/Units 07:15 APTT 42.4 H (21.0-31.0) Seconds CBC 05/04/22 Range/Units 05:25 WBC 15.32 H (4.8-10.8) K/ul RBC 3.96 L (4.63-6.08) M/uL Hgb 11.8 L (14.0-18.0) g/dl Hct 35.7 L (40.1-51.0) % Plt Count 208 (130-400) K/uL Comprehensive Metabolic Panel 05/04/22 05/04/22 Range/Units 05:25 08:24 Sodium 132 L (136-145) mmol/L Potassium 4.9 (3.5-5.1) mmol/L Chloride 100 (98-107) mmol/L Carbon Dioxide 19 L (21-32) mmol/L BUN 57 H D (6-23) mg/dl Creatinine 2.84 H D (0.6-1.4) mg/dl Glucose 147 H (70-99(Fasting)) mg/dl Calcium 8.2 L (8.5-10.1) mg/dl Direct Bilirubin 0.2 (0-0.2) mg/dl AST 111 H (13-39) U/L ALT 26 (7-52) U/L Alkaline Phosphatase 60 (34-104) U/L Total Protein 6.5 (6.0-8.3) gm/dl Albumin 3.5 (3.4-5.0) gm/dl Intake and Output 05/03/22 05/04/22 05/04/22 22:59 06:59 14:59 Intake Total 327.3 / 017.627 6802 / 1120 Output Total 0 / 2 1 / 2 Balance 327.3 / 505.667 -1 / 746.274 6736 / 1120 Intake: IV 327.3 / 748.033 6389 / 1000 Heparin Sodium/Dextrose 25,000 327.3 / 500.0 units In 500 ml @ 1,100 UNITS/ HR 22 mls/hr IV .[id number] [id number] Rx #:[id number] Sodium Chloride 0.9% 1000ML 1, 1000 / 1000 000 ml @ 60 mls/hr IV .[id number] IZAIAH Rx#:[id number] Oral 120 / 120 Output: Urine 0 / 0 # Bowel Movements 1 / 2 Other: # Unmeasured Voids 1 Weight 111.2 kg Weight Measurement Method Built in [facility] Diagnostic Findings Telemetry: Atrial fibrillation with a rapid heart rate since discontinuation of diltiazem. Average heart rate well over 100. PG Care Time/CCT Total # of Minutes Spent Total Time Spent with Patient: Total time spent is greater than 50% in coordination of care (as documented) at patient's floor/unit and/or counseling patient: Coding Level of Care Code 12024 Subseq Hosp Care Lvl 3 Diagnoses Permanent atrial fibrillation I48.21 AICD (automatic cardioverter/defibrillator) present Z95.810 Anticoagulant long-term use Z79.01 Ischemic cardiomyopathy I25.5
[2022-05-04] MEDS ORDERED: METOPROLOL SUCC 50MG EXT REL TAB PO STA (11:09)
[2022-05-04] MEDS ORDERED: DIGOXIN 0.125 MG TAB PO ONE ×2 (11:10→14:00)
[2022-05-04] MEDS ORDERED: PHARMACY GLYCEMIC MGMT CONSULT PRN (11:11)
[2022-05-04] MEDS: HEPARIN SODIUM/DEXTROSE 25,000 UNITS/500 ML BAG IV SCH ×2 (11:43→19:38)
[2022-05-04] MEDS ORDERED: DEXTROSE 50% 50 ML SYRINGE IV PRN (11:45)
[2022-05-04] MEDS ORDERED: GLUCOSE 10 TAB/TUBE PO PRN (11:45)
[2022-05-04] MEDS ORDERED: GLUCAGON FOR INJ 1 MG VIAL IM PRN (11:45)
[2022-05-04] MEDS ORDERED: GLUCOSE 40% GEL 15 GM TUBE PO PRN (11:45)
[2022-05-04] MEDS ORDERED: CARBOHYDRATES FOR HYPOGLYCEMIA PO PRN (11:45)
[2022-05-04] MEDS: INSULIN ASPART PER UNIT SC SCH ×3 (12:50→19:38)
[2022-05-04] MEDS: ATORVASTATIN 40 MG TAB PO SCH (12:51)
--- NOTE | 2022-05-04 13:17 | Nephrology Consultation ---
Date of Consultation May 04, 2022 Assessment & Plan (1) STACY (acute kidney injury): Non-oliguric. Electrolytes acceptable. Volume status relatively euvolemic. There is no emergent indication for dialysis. Baseline creatinine <1 mg/dL. Imaging demonstrating underlying atherosclerotic disease and cortical atrophy. STACY attributed to multifactorial ATN (hemodynamic instability, iodinated contrast, and possible atheroembolic phenomena). Appropriate supportive care is being provided. Medications are appropriately dosed for kidney function. Document strict I/O's. Maintain urinary catheter. Monitor metabolic profile twice daily. (2) Ischemic cardiomyopathy: Volume status acceptable. Appreciate cardiology consultation. Diuretics held. IVF stopped. Goal is to maintain even fluid balance. Avoid ASHISH/ARB now. (3) Permanent atrial fibrillation: Digoxin loading is being provided. Pacer to be adjusted per cardiology. Denies symptoms. BP acceptable. Metoprolol for rate control. (4) Acute occlusion of artery: POD #2 s/p BL iliac embolectomy and left common femoral endarterectomy. Will require optimization of medical therapy once stable. History of Present Illness Reason for Consultation: STACY Requesting Physician: Rob Kwan MD Attending Physician: Rob Kwan MD History of Present Illness Mr. Jason Cabrera is a 71 year-old male admitted to [facility] on April 30 with acute aortoiliac occlusion. He is s/p bilateral iliac and femoral embolectomy performed by Dr. Sharp with left common femoral endarterectomy and bovine patch. Mr. Cabrera has a notable history of vascular disease including coronary artery disease and peripheral arterial disease. Surgery performed on May 02. Surgery on the was canceled due to rapid atrial fibrillation and hives which broke out immediately following initial anesthesia. Baseline serum creatinine has been normal. Creatinine was 0.7 mg/dL on May 02. On the , creatinine was 1.17 mg/dL. Creatinine was 2.84 mg/dL this AM. Urine output notably reduced overnight. Initially, no urine output following Gimenez removal, bladder scan did not demonstrate notable retention. Only 150 ml of urine output following catheter placement this AM. I saw and evaluated the patient in the ICU this morning. Medical history was reviewed with the bedside nurse. Potential future indications for dialysis were discussed with Mr. Cabrera and he expressed some understanding. He also noted that indications for ELIGIBILITY COUNSELOR in animals are different that humans; we discussed this. Thankfully, he understood that there was no emergent indication at this time. He felt well. He denied shortness of breath. He denied chest pain or palpitations. At that time, heart rate was 120- 130 bpm. Extensive medical history was reviewed. This includes permanent atrial fibrillation and ischemic cardiomyopathy with LVEF of 15-20%. Pacer/ICD in place. History of CABG in 2019. There is noted recent history of inappropriate ventricular pacing and inappropriate atrial sensing. TTE on admission demonstrating a apical thrombus adherent to the dyskinetic LV apex. Anticoagulation has been avoided due to a history of a chronic subdural hematoma. History notable for CVA in November with some residual right hemiparesis reported. CT of the abdomen and pelvis demonstrating moderate cortical atrophy and normal sized kidneys. There is no evidence of post renal obstruction on this study. Gimenez was in place during the CT. There are notable BL hematoma in the groin following recent surgery. There is extensive bilateral atherosclerotic disease, notably involving the aorta and renal arteries. Urine microscopy demonstrating WBC, RBC, and granular casts. CTA completed April 30 on admission. Weight 108 kg on admission was 111 kg this AM. The patient is oxygenating well on room air. BP acceptable. Allergies Allergy/AdvReac Type Severity Reaction Status Date / Time No Known Allergies Allergy Verified 04/30/22 15:38 Home Medications Medication Instructions Recorded Confirmed Type aspirin 81 mg tablet,delayed 81 mg PO DAILY 09/03/20 04/30/22 History release furosemide 20 mg tablet 10 mg PO DAILY PRN edema #90 tabs 12/13/21 04/30/22 Rx metformin 500 mg tablet 500 mg PO BID #180 tabs 12/13/21 04/30/22 Rx atorvastatin 80 mg tablet 80 mg PO QPM 01/01/22 04/30/22 History clopidogrel 75 mg tablet 75 mg PO QAM 01/01/22 04/30/22 History escitalopram oxalate 10 mg tablet 10 mg PO HS 01/01/22 04/30/22 History (Lexapro) spironolactone 25 mg tablet 25 mg PO QPM 01/01/22 04/30/22 History allopurinol 100 mg tablet 100 mg PO DAILY 03/21/22 04/30/22 History metoprolol succinate 25 mg 25 mg PO DAILY #30 tabs 03/21/22 04/30/22 Rx tablet,extended release 24 hr metoprolol succinate 50 mg 100 mg PO QAM 30 days #60 tabs 03/21/22 04/30/22 Rx tablet,extended release 24 hr ropinirole 0.25 mg tablet 0.5 mg PO HS 04/30/22 04/30/22 History Patient History Medical History Acute CVA (cerebrovascular accident) Atrial fibrillation with rapid ventricular response Elevated troponin Implantable cardioverter-defibrillator (ICD) discharge Surgical History H/O heart bypass surgery Family History Brother Diabetes Mother Hypertension Father Stroke Denies family history of Ovarian cancer Prostate cancer Myocardial infarction Breast cancer Colorectal cancer Social History Smoking Status: Never smoker Second Hand Exposure: No; Do You Dip or Chew Tobacco: No; Hx Alcohol Use: No Hx Substance Use: No Preferred Language: Cambodian 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: Effective Oil Sprayer Required: No Beliefs That Will Affect Care: None Current Living Situation: Family Current Living Situation Comment: lives with son current occupational status: retired Other Information That Helps Us Care for You: No Feels Safe at Home: Yes Safety Concerns: Feels Safe At This Time Physical Activity Frequency: 1-2 Times per Week Seatbelt Use: always Assistive Devices: Walker Review of Systems Review of Systems: All systems reviewed & are unremarkable except as noted in HPI & below Constitutional: + fatigue and + weakness Gastrointestinal: + bloating Physical Exam Constitutional: well developed and + ill appearing; no acute distress Eyes: + anicteric sclerae; no corneal abnormality ENMT: Mouth: no oral mucosal abnormality and oral mucous membranes not dry Neck: normal visual inspection and trachea midline Respiratory: normal respiratory effort Auscultation: lungs clear to auscultation bilaterally and + rales (few scattered basilar) Cardiovascular: Rate/Rhythm: + tachycardic and + irregularly irregular Heart Sounds: normal S1 and normal S2 Extremities: + pedal edema Gastrointestinal (Abdomen): Inspection/Auscultation: + abdomen distended and normal bowel sounds Musculoskeletal: Extremities: no cyanosis and no clubbing Skin: normal turgor; no jaundice Neurologic: Motor/Sensory: no tremor and no asterixis Psychiatric: Orientation: alert and oriented x 3 Results & Data ([facility]) Vital Signs (Past 12 Hours) Vital Signs Temp Pulse Resp BP Pulse Ox O2 Del Method 05/04/22 13:00 110 H 17 94 Room Air 05/04/22 13:00 102/65 05/04/22 12:01 84/67 L 05/04/22 12:00 120 H 33 H 94 05/04/22 11:05 121 H 17 05/04/22 11:05 121/77 05/04/22 10:47 141 H 19 05/04/22 10:47 121/95 05/04/22 10:38 135 H 22 98 05/04/22 10:38 87/51 L 05/04/22 11:30 138 H 05/04/22 10:02 120 H 22 93 05/04/22 10:02 94/67 L 05/04/22 10:00 122 H 14 90 05/04/22 09:45 96/49 L 05/04/22 09:45 132 H 24 94 05/04/22 08:30 153 H 22 95 05/04/22 08:13 128 H 17 94 05/04/22 08:13 134/89 05/04/22 08:00 123 H 18 05/04/22 08:00 130/105 H 05/04/22 07:30 117 H 16 99 Room Air 05/04/22 07:01 120 H 24 92 05/04/22 07:01 98/70 L 05/04/22 07:00 108 H 16 05/04/22 08:00 36.5 C Room Air 05/04/22 06:00 106 H 23 92 05/04/22 05:01 123/82 05/04/22 05:00 119 H 19 88 L 05/04/22 04:01 113 H 19 94 05/04/22 04:01 116/84 05/04/22 03:01 113/66 05/04/22 03:01 120 H 24 89 L Laboratory Results Laboratory Results - last 24 hr 05/03/22 05/04/22 05/04/22 18:06 00:21 05:25 WBC RBC Hgb Hct MCV MCH MCHC RDW Std Deviation RDW Coeff of [place]iah Plt Count MPV Absolute Nucleated RBC Nucleated RBC % (auto) APTT PTT Ratio Sodium 132 L Potassium 4.9 Chloride 100 Carbon Dioxide 19 L Anion Gap 13 H BUN 57 H D Creatinine 2.84 H D Est Cr Clr Drug Dosing 30.7 Est GFR ( Amer) 24.4 Est GFR (Non-Af Amer) 21.0 BUN/Creatinine Ratio 20.1 H Glucose 147 H POC Glucose 155 H 212 H Calcium 8.2 L Phosphorus 7.5 H D Magnesium 2.2 Total Bilirubin Direct Bilirubin AST ALT Alkaline Phosphatase Total Protein Albumin Urine Color Urine Appearance Urine pH Ur Specific [place] Urine Protein Urine Glucose (UA) Urine Ketones Urine Blood Urine Nitrite Urine Bilirubin Urine Urobilinogen Ur Leukocyte Esterase Urine WBC (Auto) Urine RBC (Auto) U Hyaline Cast (Auto) U Epithel Cells (Auto) Urine Bacteria (Auto) Calcium Oxalate Crystal Granular Casts Urine Yeast Urine Sperm Stl C. diff Tox B Gene 05/04/22 05/04/22 05/04/22 05:25 07:15 08:24 WBC 15.32 H RBC 3.96 L Hgb 11.8 L Hct 35.7 L MCV 90.2 MCH 29.8 MCHC 33.1 RDW Std Deviation 48.2 H RDW Coeff of [place] 14.7 H Plt Count 208 MPV 11.7 Absolute Nucleated RBC 0.02 H Nucleated RBC % (auto) 0.1 APTT 42.4 H PTT Ratio 1.5 Sodium Potassium Chloride Carbon Dioxide Anion Gap BUN Creatinine Est Cr Clr Drug Dosing Est GFR ( Amer) Est GFR (Non-Af Amer) BUN/Creatinine Ratio Glucose POC Glucose Calcium Phosphorus Magnesium Total Bilirubin 0.8 Direct Bilirubin 0.2 AST 111 H ALT 26 Alkaline Phosphatase 60 Total Protein 6.5 Albumin 3.5 Urine Color Urine Appearance Urine pH Ur Specific [place] Urine Protein Urine Glucose (UA) Urine Ketones Urine Blood Urine Nitrite Urine Bilirubin Urine Urobilinogen Ur Leukocyte Esterase Urine WBC (Auto) Urine RBC (Auto) U Hyaline Cast (Auto) U Epithel Cells (Auto) Urine Bacteria (Auto) Calcium Oxalate Crystal Granular Casts Urine Yeast Urine Sperm Stl C. diff Tox B Gene 05/04/22 05/04/22 05/04/22 08:50 11:15 12:46 WBC RBC Hgb Hct MCV MCH MCHC RDW Std Deviation RDW Coeff of [place] Plt Count MPV Absolute Nucleated RBC Nucleated RBC % (auto) APTT PTT Ratio Sodium Potassium Chloride Carbon Dioxide Anion Gap BUN Creatinine Est Cr Clr Drug Dosing Est GFR ( Amer) Est GFR (Non-Af Amer) BUN/Creatinine Ratio Glucose POC Glucose 161 H Calcium Phosphorus Magnesium Total Bilirubin Direct Bilirubin AST ALT Alkaline Phosphatase Total Protein Albumin Urine Color Dark Yellow Urine Appearance Cloudy A Urine pH 5.0 Ur Specific [place] 1.019 Urine Protein Trace H Urine Glucose (UA) Negative Urine Ketones Trace H Urine Blood 2+ H Urine Nitrite Negative Urine Bilirubin Negative Urine Urobilinogen Negative Ur Leukocyte Esterase 1+ H Urine WBC (Auto) 10-30 H Urine RBC (Auto) 5-10 H U Hyaline Cast (Auto) >30 H U Epithel Cells (Auto) >30 H Urine Bacteria (Auto) Negative Calcium Oxalate Crystal Present A Granular Casts 1-5 H Urine Yeast Not Reportable Urine Sperm Present A Stl C. diff Tox B Gene Negative Cdiff Gene PG Care Time/CCT Total # of Minutes Spent Total Time Spent with Patient: Total time spent is greater than 50% in coordination of care (as documented) at patient's floor/unit and/or counseling patient: Coding Level of Care Code 12535 Inpt Consult Level 5 Diagnoses STACY (acute kidney injury) N17.9 Ischemic cardiomyopathy I25.5 Permanent atrial fibrillation I48.21 Acute occlusion of artery I70.90
--- NOTE | 2022-05-04 13:32 | Pharmacy Report ---
Pharmacy Glycemic Short Note 2 - Date of Service May 04, 2022 - Glycemic Short BSG Results (Last 24 hours): 05/03/22 05/04/22 05/04/22 18:06 00:21 05:25 Glucose 147 H POC Glucose 155 H 212 H 05/04/22 12:46 Glucose POC Glucose 161 H OUTPATIENT ANTIDIABETIC REGIMEN: * metformin ASSESSMENT: * 71 year old s/p femoral embolectomy 05/02, with atrial fibrillation - had previously been on diltiazem drip. Continues on heparin drip for anticoagulation. Type 2 diabetic managed on metformin alone at home. A1c 6.8 % 01/2022 * Pharmacy consulted for glycemic management - fasting BSG 147 mg/dL. Plan to start novolog for now stress of 05/19. Patient with significant STACY today - nephrology consulted. PLAN FOR INPATIENT GLYCEMIC CONTROL: * Hold outpatient oral diabetes medications * Basal insulin * Lantus - not currently indicated * Bolus insulin * NovoLog per scale ACHS or Q6hrs while NPO * Goal Range: Low 110 mg/dL - High 140 mg/dL * Correction Factor: 30 mg/dL/unit * Nutritional / Prandial insulin per carb ratio of 1 unit per 12 grams CHO consumed
--- NOTE | 2022-05-04 13:33 | Cardiology Progress Note ---
Date of Service May 04, 2022 Assessment & Plan (1) AICD (automatic cardioverter/defibrillator) present: Admission and Anticipated Discharge Date Admission Date: April 30, 2022 Subjective Heart rate is better controlled now after receiving metoprolol and starting on digoxin. Device interrogation was done, results are noted in the last progress note. The device was reprogrammed from dual-chamber to single-chamber mode as noted. Results & Data ([facility]) Vital Signs (Past 12 Hours) Vital Signs Temp Pulse Resp BP Pulse Ox O2 Del Method 05/04/22 13:00 110 H 17 94 Room Air 05/04/22 13:00 102/65 05/04/22 12:01 84/67 L 05/04/22 12:00 120 H 33 H 94 05/04/22 11:05 121 H 17 05/04/22 11:05 121/77 05/04/22 10:47 141 H 19 05/04/22 10:47 121/95 05/04/22 10:38 135 H 22 98 05/04/22 10:38 87/51 L 05/04/22 11:30 138 H 05/04/22 10:02 120 H 22 93 05/04/22 10:02 94/67 L 05/04/22 10:00 122 H 14 90 05/04/22 09:45 96/49 L 05/04/22 09:45 132 H 24 94 05/04/22 08:30 153 H 22 95 05/04/22 08:13 128 H 17 94 05/04/22 08:13 134/89 05/04/22 08:00 123 H 18 05/04/22 08:00 130/105 H 05/04/22 07:30 117 H 16 99 Room Air 05/04/22 07:01 120 H 24 92 05/04/22 07:01 98/70 L 05/04/22 07:00 108 H 16 05/04/22 08:00 36.5 C Room Air 05/04/22 06:00 106 H 23 92 05/04/22 05:01 123/82 05/04/22 05:00 119 H 19 88 L 05/04/22 04:01 113 H 19 94 05/04/22 04:01 116/84 05/04/22 03:01 113/66 05/04/22 03:01 120 H 24 89 L PG Care Time/CCT Total # of Minutes Spent Total Time Spent with Patient: Total time spent is greater than 50% in coordination of care (as documented) at patient's floor/unit and/or counseling patient: Coding Level of Care Code None Diagnoses AICD (automatic cardioverter/defibrillator) present Z95.810 CPT Codes Implantable Defib dual lead programming - [id number] ([id number])
[2022-05-04] MEDS ORDERED: NORMOSOL-R 500 ML IV ONE (14:58)
[2022-05-04] MEDS: NORMOSOL-R 1,000 ML IV SCH ×2 (15:50→21:11)
[2022-05-04 16:45] LABS: Albumin Level 3.5 gm/dl (3.4-5.0); BUN Creatinine Ratio 22.1 (10-20); Calcium 8.1 mg/dl (8.5-10.1); Creatinine Clr Calc Pharmacy 28.8 ml/min; Est GFR (African American) 22.6 ml/min; Est GFR (Non-African American) 19.5 ml/min; Phosphorus 7.4 mg/dl (2.5-4.9); Potassium 4.6 mmol/L (3.5-5.1)
[2022-05-04 16:49] LABS: Partial Thromboplastin Ratio 1.7
[2022-05-04 16:55] LABS: Partial Thromboplastin Time 45.8 Seconds (21.0-31.0)
[2022-05-04] MEDS: rOPINIRole HCL 0.25 MG TABLET PO SCH (19:39)
[2022-05-04] MEDS: ESCITALOPRAM OXALATE 10 MG TAB PO SCH (19:39)
[2022-05-04] MEDS: ACETAMINOPHEN 325 MG TAB PO PRN (19:40)
[2022-05-04 23:56] LABS: Partial Thromboplastin Ratio 1.9
[2022-05-04 23:59] LABS: Partial Thromboplastin Time 51.8 Seconds (21.0-31.0)
[2022-05-05] MEDS: NORMOSOL-R 1,000 ML IV SCH (04:25)
[2022-05-05] MEDS: HYDROmorphone INJ 0.5 MG/0.5 ML SYR IV PRN (05:44)
[2022-05-05 06:40] LABS: BUN Creatinine Ratio 30.3 (10-20); Calcium 8.2 mg/dl (8.5-10.1); Creatinine Clr Calc Pharmacy 37.8 ml/min; Est GFR (African American) 31.3 ml/min; Potassium 4.2 mmol/L (3.5-5.1)
[2022-05-05 07:27] LABS: Basophils # (auto) 0.02 K/uL (0-0.2); Basophils % (auto) 0.2 %; Hemoglobin 14.1 g/dl (14.0-18.0); Immature Granulocytes # (auto) 0.12 K/uL (0.00-0.02); Immature Granulocytes % (auto) 0.9 %; Lymphocytes # (auto) 1.42 K/uL (1.2-3.4); Lymphocytes % (auto) 10.9 %; Mean Corpuscular Hemoglobin 29.8 pg (25.0-34.0); Mean Corpuscular Hgb Conc 34.4 g/dL (32.0-36.0); Mean Corpuscular Volume 86.7 fL (80.0-100.0); Mean Platelet Volume 11.3 fL (9.4-12.4); Monocytes # (auto) 1.22 K/uL (0.24-0.82); Monocytes % (auto) 9.4 %; Neutrophils # (auto) 10.26 K/uL (1.4-6.5); Neutrophils % (auto) 78.6 %; Nucleated RBC # (auto) 0.09 K/uL (0-0); Nucleated RBC % (auto) 0.7 %; Platelet Count 117 K/uL (130-400); RDW Coefficient of Variation 14.4 % (11.5-14.5); RDW Standard Deviation 45.3 fL (36.4-46.3); Red Blood Count 4.73 M/uL (4.63-6.08); White Blood Count 13.04 K/ul (4.8-10.8)
--- NOTE | 2022-05-05 07:58 | Hospitalist Progress Note ---
Date of Service May 05, 2022 Assessment & Plan (1) Acute occlusion of aortoiliac artery: Plan: Apical thrombus, emboluis from a. fib likely cause of arterial occlusion Initial thrombectomy cancelled on 05/01 due to a. fib with rates 190-210. s/p Bilateral Iliac and Femoral Embolectomy, Left Common Femoral Artery Endarterectomy with Bovine Patch, Right Common Artery Patch Angioplasty (Left) - performed by Dr Sharp [05/02] On heparin IV drip since then, planning on switch to DOAC vs. warfarin on discharge. concern for hematoma right groin will recheck hgb in the afternoon (2) Atrial fibrillation with rapid ventricular response: Plan: metoprolol succinate and digoxin. Followed but EP DR Hopper, Rate appears to be inappropriate Earlier did have some hypotension Anticoagulation with IV heparin as above (3) STACY (acute kidney injury): Plan: Significant Cr rise to 2.84 (baseline 0.73) CT A/P r/o obstructive cause 05/04/22 No evidence of hydronephrosis or hydroureter in this patient with acute renal failure. Suspected ATN in setting of hypotension previously with A. fib RVR +/- possible emboli given recent thrombectomy. Already on dual antiplatelets and heparin therefore would not change treatment for possible emboli. Gimenez catheter placed 05/04 to accurately measure urine output Consult nephrology - discussed with Dr Cordero and will place patient on maintenance Normosol. (4) Ischemic cardiomyopathy: Plan: LVEF < 15% with chronic HFrEF currently patient is not in acute HFrEF -> carefully monitor for hypervolemia with IV fluids given as also received NSS yesterday. Continue metoprolol succinate as above (5) LV (left ventricular) mural thrombus: Plan: Anticoagulation as above (6) Restless leg syndrome: Plan: Continue ropinirole 0.5mg @ 8pm (7) Subarachnoid hemorrhage: Plan: History of subdural hematoma in August 2020. 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 trace subarachnoid hemorrhage, less apparent on repeat scan. Low threshold to repeat if he develops a headache since he is on DAPT and antic ogulation. (8) Gout: Plan: Continue allopurinol 100mg PO daily (9) CAD (coronary artery disease): Plan: Continue aspirin, clopidogrel, metoprolol, atorvastatin Plan VTE Prophylaxis - heparin IV Diet - heart healthy, T2DM Disposition - continue on PCU Admission and Anticipated Discharge Date Admission Date: April 30, 2022 Subjective Patient sitting in chair offering no complaints nursing noted hematoma at right groin site. Patient is on continuous infusion heparin. Patient himself did not point out any discomfort at that site Review of Systems Review of Systems: Mild distress and fatigue no headache, no visual changes no speech or swallowing issues no chest pain, pressure or palpitations no shortness of breath, cough or wheezes no abdominal pain, nausea or vomiting, diarrhea or constipation no dysuria, hematuria or frequency no focal joint pain or swelling no back pain, CVA tenderness or radicular pain Bruising and hematoma at access sites for recent vascular intervention Chronic venous stasis changes to his lower extremities no focal signs of weakness or numbness or altered sensation no complaints of anxiety or depression.. Physical Exam Physical Exam: The patient appeared stable Vital signs as documented. Lungs are clear to auscultation and appear unlabored diminished at the bases Cardiac exam, Rhythm is regular.. No murmurs, rubs or gallops. Abdominal exam reveals normal bowel sounds, soft non tender, no masses Extremities are chronic venous stasis changes but capillary refill and pulses are intact Neurologic exam is alert and oriented, no focal loss of strength or sensation Skin is with bruising from recent vascular intervention in the groins bilaterally Psychologically is without concerns for anxiety or depression. Results & Data Results & Data ([facility]) Vital Signs (Past 12 Hours) Vital Signs Temp Pulse Resp BP Pulse Ox 05/05/22 06:00 97 H 22 05/05/22 06:00 136/83 05/05/22 04:01 98.2 F 111/70 98 05/05/22 04:01 98 H 10 L 05/05/22 00:15 98.6 F 94/65 L 99 05/05/22 00:15 114 H 26 H 05/04/22 20:00 112 H 16 05/04/22 20:00 98.2 F 98/80 L 97 PG Care Time/CCT Total # of Minutes Spent Total Time Spent with Patient: Total time spent is greater than 50% in coordination of care (as documented) at patient's floor/unit and/or counseling patient: Coding Level of Care Code 17653 Subseq Hosp Care Lvl 3 Diagnoses Acute occlusion of aortoiliac artery I74.09 Atrial fibrillation with rapid ventricular response I48.91 STACY (acute kidney injury) N17.9 Ischemic cardiomyopathy I25.5 LV (left ventricular) mural thrombus I51.3 Restless leg syndrome G25.81 Subarachnoid hemorrhage I60.9 Gout M10.9 CAD (coronary artery disease) I25.10
[2022-05-05] MEDS: INSULIN ASPART PER UNIT SC SCH ×4 (08:07→20:58)
[2022-05-05] MEDS: CLOPIDOGREL BISULFATE 75 MG TAB PO SCH (08:36)
[2022-05-05] MEDS: ASPIRIN 81 MG ECTAB PO SCH (08:36)
[2022-05-05] MEDS: allopurinoL 100 MG TAB PO SCH (08:36)
[2022-05-05] MEDS: METOPROLOL SUCC 50MG EXT REL TAB PO SCH (08:36)
[2022-05-05] MEDS: ACETAMINOPHEN 325 MG TAB PO PRN ×2 (08:38→18:04)
--- NOTE | 2022-05-05 09:10 | Surgery Progress Note ---
Date of Service May 05, 2022 Assessment & Plan (1) Acute occlusion of aortoiliac artery: Plan: This gentleman is postoperative day 3 from a embolectomy of bilateral iliac, common femoral, and profundofemoral arteries. 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 He does have a hematoma in both groins and medial aspect which is not surprising. Vascular spencer he could be transferred out of the unit as per his primary service. He is having some discomfort with moving he therefore will need OT and PT treatment. Admission and Anticipated Discharge Date Admission Date: April 30, 2022 Subjective 71 yo m POD #3 after BL iliac and profunda embolectomies, L common femoral endarterectomy with bovine patch, and R common femoral patch angioplasty, seen in f/u today. Pt states feeling ok. Denies pain in feet or toes. Admits some pain in BL groin incisions. No other new complaints Review of Systems Review of Systems: All systems reviewed & are unremarkable except as noted in HPI & below Physical Exam Constitutional: WD/WN, vitals as above Respiratory: normal respiratory effort, lungs clear to auscultation normal respiratory effort; no respiratory distress Cardiovascular: Rate/Rhythm: + irregularly irregular; not tachycardic Extr emities: normal capillary refill (Slightly decreased in both lower extremities.) Gastrointestinal (Abdomen): Inspection/Auscultation: abdomen normal to inspection Percussion/Palpation: abdomen soft; abdomen nontender Musculoskeletal: Extremities: strength 5/5 throughout Skin: + incision (There are small sized hematomas in the medial side of both groin incisions.) Neurologic: CN's II-XI intact bilaterally and moves all extremities; no focal motor deficits Psychiatric: Orientation: alert and oriented x 3 Results & Data ([facility]) Vital Signs (Past 12 Hours) Vital Signs Temp Pulse Resp BP Pulse Ox 05/05/22 08:00 97 H 05/05/22 06:00 97 H 22 05/05/22 06:00 136/83 05/05/22 04:01 36.8 C 111/70 98 05/05/22 04:01 98 H 10 L 05/05/22 00:15 37 C 94/65 L 99 05/05/22 00:15 114 H 26 H
--- NOTE | 2022-05-05 10:14 | Nephrology Progress Note ---
Date of Service May 05, 2022 Assessment & Plan (1) STACY (acute kidney injury): Plan: Creatinine improving. Non-oliguric. Electrolytes acceptable. Volume status remains relatively euvolemic. There is no indication for dialysis at this time. IVF may be stopped when tolerating adequate PO. Goal is to maintain an even fluid balance. Baseline creatinine <1 mg/dL. Imaging demonstrating underlying atherosclerotic disease and cortical atrophy. STACY attributed to multifactorial ATN, notably hemodynamics. Improving. Medications are appropriately dosed for kidney function. Document strict I/O's. Maintain urinary catheter. Repeat metabolic profile tomorrow AM. (2) Ischemic cardiomyopathy: Plan: Volume status acceptable. Appreciate cardiology consultation. Diuretics held. IVF may be stopped when tolerating adequate PO. Goal is to maintain even fluid balance. Avoid ASHISH/ARB now. (3) Permanent atrial fibrillation: Plan: Controlled with digoxin and metoprolol. Pacer vent sensing and pacing. Notable improvement. (4) Acute occlusion of artery: Plan: POD #3 s/p BL iliac embolectomy and left common femoral endarterectomy. Will require optimization of medical therapy once stable. Admission and Anticipated Discharge Date Admission Date: April 30, 2022 Subjective No acute events overnight. Resting comfortably in bedside chair this AM. Denies significant pain. Appetite improving. Urinary catheter remains in place. No chest pain, palpitations, or shortness of breath. No fevers or chills. I discussed the plan of care with Dr. Sharp this AM. Review of Systems Review of Systems: All systems reviewed & are unremarkable except as noted in HPI & below Constitutional: + fatigue and + weakness Physical Exam Constitutional: well developed; no acute distress Eyes: + anicteric sclerae; no corneal abnormality ENMT: Mouth: no oral mucosal abnormality and oral mucous membranes not dry Neck: normal visual inspection and trachea midline Respiratory: normal respiratory effort Auscultation: lungs clear to auscultation bilaterally and + rales (few scattered basilar) Cardiovascular: Rate/Rhythm: regular rhythm Heart Sounds: normal S1 and normal S2 Extremities: + pedal edema Gastrointestinal (Abdomen): Inspection/Auscultation: + abdomen distended and normal bowel sounds Musculoskeletal: Extremities: no cyanosis and no clubbing Skin: normal turgor; no jaundice Neurologic: Motor/Sensory: no tremor and no asterixis Psychiatric: Orientation: alert and oriented x 3 Results & Data ([facility]) Vital Signs (Past 12 Hours) Vital Signs Temp Pulse Resp BP Pulse Ox 05/05/22 08:00 97 H 05/05/22 06:00 97 H 22 05/05/22 06:00 136/83 05/05/22 04:01 36.8 C 111/70 98 05/05/22 04:01 98 H 10 L 05/05/22 00:15 37 C 94/65 L 99 05/05/22 00:15 114 H 26 H Laboratory Results Laboratory Results - last 24 hr 05/04/22 05/04/22 05/04/22 08:24 08:50 11:15 WBC RBC Hgb Hct MCV MCH MCHC RDW Std Deviation RDW Coeff of [place] Plt Count MPV Immature Gran % (Auto) Neut % (Auto) Lymph % (Auto) [place] % (Auto) Eos % (Auto) Baso % (Auto) Neut # (Auto) Lymph # (Auto) [place] # (Auto) Eos # (Auto) Baso # (Auto) Immature Gran # (Auto) Absolute Nucleated RBC Nucleated RBC % (auto) APTT PTT Ratio Sodium Potassium Chloride Carbon Dioxide Anion Gap BUN Creatinine Est Cr Clr Drug Dosing Est GFR ( Amer) Est GFR (Non-Af Amer) BUN/Creatinine Ratio Glucose POC Glucose Calcium Phosphorus Total Bilirubin 0.8 Direct Bilirubin 0.2 AST 111 H ALT 26 Alkaline Phosphatase 60 Total Protein 6.5 Albumin 3.5 Urine WBC (Auto) 10-30 H Urine RBC (Auto) 5-10 H U Hyaline Cast (Auto) >30 H U Epithel Cells (Auto) >30 H Urine Bacteria (Auto) Negative Calcium Oxalate Crystal Present A Granular Casts 1-5 H Urine Yeast Not Reportable Urine Sperm Present A Stl C. diff Tox B Gene Negative Cdiff Gene Digoxin 05/04/22 05/04/22 05/04/22 12:46 15:49 16:07 WBC RBC Hgb Hct MCV MCH MCHC RDW Std Deviation RDW Coeff of [place] Plt Count MPV Immature Gran % (Auto) Neut % (Auto) Lymph % (Auto) [place] % (Auto) Eos % (Auto) Baso % (Auto) Neut # (Auto) Lymph # (Auto) [place] # (Auto) Eos # (Auto) Baso # (Auto) Immature Gran # (Auto) Absolute Nucleated RBC Nucleated RBC % (auto) APTT 45.8 H* PTT Ratio 1.7 Sodium Potassium Chloride Carbon Dioxide Anion Gap BUN Creatinine Est Cr Clr Drug Dosing Est GFR ( Amer) Est GFR (Non-Af Amer) BUN/Creatinine Ratio Glucose POC Glucose 161 H 145 H Calcium Phosphorus Total Bilirubin Direct Bilirubin AST ALT Alkaline Phosphatase Total Protein Albumin Urine WBC (Auto) Urine RBC (Auto) U Hyaline Cast (Auto) U Epithel Cells (Auto) Urine Bacteria (Auto) Calcium Oxalate Crystal Granular Casts Urine Yeast Urine Sperm Stl C. diff Tox B Gene Digoxin 05/04/22 05/04/22 05/04/22 16:07 19:31 23:11 WBC RBC Hgb Hct MCV MCH MCHC RDW Std Deviation RDW Coeff of [place] Plt Count MPV Immature Gran % (Auto) Neut % (Auto) Lymph % (Auto) [place] % (Auto) Eos % (Auto) Baso % (Auto) Neut # (Auto) Lymph # (Auto) [place] # (Auto) Eos # (Auto) Baso # (Auto) Immature Gran # (Auto) Absolute Nucleated RBC Nucleated RBC % (auto) APTT 51.8 H* PTT Ratio 1.9 Sodium 133 L Potassium 4.6 Chloride 98 Carbon Dioxide 25 Anion Gap 10 BUN 67 H Creatinine 3.03 H Est Cr Clr Drug Dosing 28.8 Est GFR ( Amer) 22.6 Est GFR (Non-Af Amer) 19.5 BUN/Creatinine Ratio 22.1 H Glucose 143 H POC Glucose 162 H Calcium 8.1 L Phosphorus 7.4 H Total Bilirubin Direct Bilirubin AST ALT Alkaline Phosphatase Total Protein Albumin 3.5 Urine WBC (Auto) Urine RBC (Auto) U Hyaline Cast (Auto) U Epithel Cells (Auto) Urine Bacteria (Auto) Calcium Oxalate Crystal Granular Casts Urine Yeast Urine Sperm Stl C. diff Tox B Gene Digoxin 05/05/22 05/05/22 05/05/22 05:19 05:19 05:19 WBC 13.04 H RBC 4.73 Hgb 14.1 Hct 41.0 MCV 86.7 MCH 29.8 MCHC 34.4 RDW Std Deviation 45.3 RDW Coeff of [place] 14.4 Plt Count 117 L MPV 11.3 Immature Gran % (Auto) 0.9 Neut % (Auto) 78.6 Lymph % (Auto) 10.9 [place] % (Auto) 9.4 Eos % (Auto) 0.0 Baso % (Auto) 0.2 Neut # (Auto) 10.26 H Lymph # (Auto) 1.42 [place] # (Auto) 1.22 H Eos # (Auto) 0.00 Baso # (Auto) 0.02 Immature Gran # (Auto) 0.12 H Absolute Nucleated RBC 0.09 H Nucleated RBC % (auto) 0.7 APTT PTT Ratio Sodium 133 L Potassium 4.2 Chloride 98 Carbon Dioxide 23 Anion Gap 12 H BUN 70 H Creatinine 2.31 H D Est Cr Clr Drug Dosing 37.8 Est GFR ( Amer) 31.3 Est GFR (Non-Af Amer) 27.0 BUN/Creatinine Ratio 30.3 H Glucose 147 H POC Glucose Calcium 8.2 L Phosphorus Total Bilirubin Direct Bilirubin AST ALT Alkaline Phosphatase Total Protein Albumin Urine WBC (Auto) Urine RBC (Auto) U Hyaline Cast (Auto) U Epithel Cells (Auto) Urine Bacteria (Auto) Calcium Oxalate Crystal Granular Casts Urine Yeast Urine Sperm Stl C. diff Tox B Gene Digoxin 1.5 05/05/22 07:35 WBC RBC Hgb Hct MCV MCH MCHC RDW Std Deviation RDW Coeff of [place] Plt Count MPV Immature Gran % (Auto) Neut % (Auto) Lymph % (Auto) [place] % (Auto) Eos % (Auto) Baso % (Auto) Neut # (Auto) Lymph # (Auto) [place] # (Auto) Eos # (Auto) Baso # (Auto) Immature Gran # (Auto) Absolute Nucleated RBC Nucleated RBC % (auto) APTT PTT Ratio Sodium Potassium Chloride Carbon Dioxide Anion Gap BUN Creatinine Est Cr Clr Drug Dosing Est GFR ( Amer) Est GFR (Non-Af Amer) BUN/Creatinine Ratio Glucose POC Glucose 149 H Calcium Phosphorus Total Bilirubin Direct Bilirubin AST ALT Alkaline Phosphatase Total Protein Albumin Urine WBC (Auto) Urine RBC (Auto) U Hyaline Cast (Auto) U Epithel Cells (Auto) Urine Bacteria (Auto) Calcium Oxalate Crystal Granular Casts Urine Yeast Urine Sperm Stl C. diff Tox B Gene Digoxin PG Care Time/CCT Total # of Minutes Spent Total Time Spent with Patient: Total time spent is greater than 50% in coordination of care (as documented) at patient's floor/unit and/or counseling patient: Coding Level of Care Code 01717 Subseq Hosp Care Lvl 3 Diagnoses STACY (acute kidney injury) N17.9 Ischemic cardiomyopathy I25.5 Permanent atrial fibrillation I48.21 Acute occlusion of artery I70.90
[2022-05-05] MEDS: HEPARIN SODIUM/DEXTROSE 25,000 UNITS/500 ML BAG IV SCH (15:12)
[2022-05-05] MEDS: ATORVASTATIN 40 MG TAB PO SCH (15:12)
[2022-05-05] MEDS: ESCITALOPRAM OXALATE 10 MG TAB PO SCH (20:58)
[2022-05-05] MEDS: rOPINIRole HCL 0.25 MG TABLET PO SCH (20:58)
[2022-05-05 21:45] LABS: BUN Creatinine Ratio 40.4 (10-20); Calcium 7.8 mg/dl (8.5-10.1); Est GFR (African American) 50.3 ml/min; Est GFR (Non-African American) 43.4 ml/min
[2022-05-05 21:55] LABS: Hematocrit (blood only) 22.6 % (40.1-51.0); Hemoglobin 7.9 g/dl (14.0-18.0); Mean Corpuscular Hemoglobin 29.6 pg (25.0-34.0); Mean Corpuscular Volume 84.6 fL (80.0-100.0); Mean Platelet Volume 11.4 fL (9.4-12.4); Nucleated RBC # (auto) 0.23 K/uL (0-0); Nucleated RBC % (auto) 1.5 %; Platelet Count 220 K/uL (130-400); RDW Coefficient of Variation 14.3 % (11.5-14.5); RDW Standard Deviation 43.2 fL (36.4-46.3); Red Blood Count 2.67 M/uL (4.63-6.08)
--- NOTE | 2022-05-05 23:31 | Communication Note ---
Date of Service: May 05, 2022 Patient's 21:00 H&H resulted at 7.9 g/dL, down from 8.9 at 2 PM. Evaluated patient who was in no acute distress with stable vital signs. Did have bila teral hematomas in both medial thighs around groin incisions from thrombectomy. Due to lab and physical exam findings, ordered H&H every 6 hours, repeat PTT, CT scan of pelvis/upper thighs. Patient was on dual antiplatelet therapy as well as heparin drip elected to hold clopidogrel at this time. Repeat H&H at midnight showed stable hemoglobin of 7.9. CT scan resulted as follows: "Right thigh: There is enlargement with high density involving the sartorius musculature up to 7.6 cm consistent with intramuscular hematoma. There is enlargement of the right rectus femoris muscle with high density consistent with hematoma. There is punctate air within the right rectus femoris musculature as well as within the anterior subcutaneous soft tissues, cannot exclude infectious process or sequela of prior injection or procedure. Left thigh: There is a left anterior superficial/subcutaneous soft tissue hematoma starting at the level of the anterior left groin measuring 4.6 x 4.6 cm in axial dimension by 10 cm in craniocaudal dimension. There is mild hematoma along the left common femoral artery and left proximal superficial femoral artery. There is diffuse nonspecific stranding involving the bilateral upper thighs in the subcutaneous region, slightly more so on the right compared to the left which could represent nonspecific posttraumatic edema versus cellulitis versus diffuse bruising." Patient is considered to be very high risk for clotting given ongoing atrial fibrillation, as well as the fact that he has already developed emboli resulting in his current hospitalization requiring thrombectomy of aortoiliac thrombus. As such, will continue heparin drip for now and continue to monitor H&H closely. While patient does have history of CAD, he has no stent in place and currently no cardiac/chest pain symptoms consequently, would use hemoglobin of 7 as his threshold for transfusion. Of note, patient does have significant cardiomyopathy with an LVEF under 15%, so fluid administration including during a transfusion would have to be done very cautiously. Resident Activity Tracking Resident Involvement: Resident Care Provided Care Provided: Adult [facility] Medicine
[2022-05-06 00:43] LABS: Hematocrit (blood only) 22.9 % (40.1-51.0); Hemoglobin 7.9 g/dl (14.0-18.0)
[2022-05-06] MEDS: ACETAMINOPHEN 325 MG TAB PO PRN ×2 (01:24→21:33)
[2022-05-06 01:26] LABS: Partial Thromboplastin Ratio 1.5; Partial Thromboplastin Time 40.4 Seconds (21.0-31.0)
[2022-05-06 06:26] LABS: Basophils # (auto) 0.03 K/uL (0-0.2); Basophils % (auto) 0.2 %; Eosinophils # (auto) 0.03 K/uL (0-0.50); Eosinophils % (auto) 0.2 %; Hematocrit (blood only) 22.8 % (40.1-51.0); Immature Granulocytes # (auto) 0.13 K/uL (0.00-0.02); Immature Granulocytes % (auto) 0.9 %; Lymphocytes # (auto) 1.92 K/uL (1.2-3.4); Lymphocytes % (auto) 13.2 %; Mean Corpuscular Hemoglobin 30.1 pg (25.0-34.0); Mean Corpuscular Hgb Conc 35.1 g/dL (32.0-36.0); Mean Corpuscular Volume 85.7 fL (80.0-100.0); Mean Platelet Volume 11.4 fL (9.4-12.4); Monocytes # (auto) 1.59 K/uL (0.24-0.82); Neutrophils % (auto) 74.5 %; Nucleated RBC # (auto) 0.27 K/uL (0-0); Nucleated RBC % (auto) 1.9 %; Platelet Count 230 K/uL (130-400); RDW Coefficient of Variation 14.4 % (11.5-14.5); Red Blood Count 2.66 M/uL (4.63-6.08)
[2022-05-06 06:32] LABS: Calcium 7.9 mg/dl (8.5-10.1); Creatinine Clr Calc Pharmacy 70.1 ml/min; Est GFR (African American) 65.8 ml/min; Est GFR (Non-African American) 56.8 ml/min; Potassium 3.8 mmol/L (3.5-5.1)
[2022-05-06] MEDS: INSULIN ASPART PER UNIT SC SCH ×4 (07:42→21:28)
--- NOTE | 2022-05-06 07:56 | CT Scan Report ---
CT pelvis wo con HISTORY: bilateral inner thigh hematomas TECHNIQUE: Multiaxial CT images of the pelvis performed without intravenous contrast and reformatted in the sagittal and coronal plane. COMPARISON STUDY: Abdomen and pelvis CT 05/04/2022. FINDINGS: Bilateral groin skin felicia are again noted with subcutaneous gas and adjacent subcutaneou s/intramuscular hematomas, right greater than left. The dominant right anterior thigh hematoma involv es the sartorius muscle with a total size of approximately 13 x 10 x 6 cm. The left anterior thigh/gr oin subcutaneous hematoma measures approximately 11 x 8 x 5 cm. Both of these hematomas surround the common femoral and superficial femoral arteries. A Gimenez catheter appears in good position. There is subcutaneous edema/hemorrhage within the bilateral proximal thighs. There is trace extension of the l eft hematoma into the left extra peritoneal space. Although partially imaged on the prior study these hematomas appear similar in size. No fracture or dislocation within the pelvis or hips. IMPRESSION: 1. Redemonstration of the bilateral anterior thigh/groin hematomas as described above, right greater than left, which are not significantly changed in size. These are deep to the skin felicia. Punctate foci of gas within and adjacent to the hematomas favors the recent postoperative change. Secondary in fection would be difficult to exclude by imaging alone. 2. Bilateral proximal thigh subcutaneous edema/hemorrhage also noted. ACT 112: Negative or not required by law. Electronically signed by: Aris Clayton M.D. 05/06/2022 7:55 AM
[2022-05-06 08:24] LABS: Partial Thromboplastin Ratio 1.9
[2022-05-06 08:25] LABS: Partial Thromboplastin Time 52.2 Seconds (21.0-31.0)
[2022-05-06] MEDS ORDERED: AMIODARONE / D5W 360 MG/200 ML BAG IV ONE (09:07)
[2022-05-06] MEDS ORDERED: AMIODARONE / D5W 150 MG/100 ML BAG IV STA (09:07)
[2022-05-06] MEDS ORDERED: 0.2 MICRON FILTER SET 1 EACH IV ONE (09:07)
[2022-05-06] MEDS: HYDROmorphone INJ 0.5 MG/0.5 ML SYR IV PRN (09:17)
[2022-05-06] MEDS: allopurinoL 100 MG TAB PO SCH (09:18)
[2022-05-06] MEDS: ASPIRIN 81 MG ECTAB PO SCH (09:18)
[2022-05-06] MEDS: METOPROLOL SUCC 50MG EXT REL TAB PO SCH (09:18)
[2022-05-06] MEDS: HEPARIN SODIUM/DEXTROSE 25,000 UNITS/500 ML BAG IV SCH ×3 (09:18→11:54)
--- NOTE | 2022-05-06 10:34 | Nephrology Progress Note ---
Date of Service May 06, 2022 Assessment & Plan (1) STACY (acute kidney injury): Plan: Creatinine continues to improve. Non-oliguric. Electrolytes acceptable. Volume status remains relatively euvolemic. IVF stopped. Gimenez remains intact, notably given difficulty with mobility due to groin hematoma. Gimenez may be removed per nursing protocol. Baseline creatinine <1 mg/dL. Medications are appropriately dosed for kidney function. Diuretics held. Goal is to maintain even fluid balance. (2) Ischemic cardiomyopathy: Plan: Volume status acceptable. Appreciate cardiology consultation. Diuretics held. IVF may be stopped when tolerating adequate PO. Goal is to maintain even fluid balance. Avoid ASHISH/ARB now. (3) Permanent atrial fibrillation: (4) Acute occlusion of artery: Plan: POD #4 s/p BL iliac embolectomy and left common femoral endarterectomy. Admission and Anticipated Discharge Date Admission Date: April 30, 2022 Subjective No acute events overnight. Resting comfortably in bed this AM. Denies chest pain or palpitations. No shortness of breath. No fevers or chills. Denies significant pain. Gimenez remains. Review of Systems Review of Systems: All systems reviewed & are unremarkable except as noted in HPI & below Physical Exam Constitutional: well developed; no acute distress Eyes: + anicteric sclerae; no corneal abnormality ENMT: Mouth: no oral mucosal abnormality and oral mucous membranes not dry Neck: normal visual inspection and trachea midline Respiratory: normal respiratory effort Auscultation: lungs clear to auscultation bilaterally and + rales (few scattered basilar) Cardiovascular: Rate/Rhythm: + tachycardic Heart Sounds: normal S1 and normal S2 Extremities: + pedal edema Gastrointestinal (Abdomen): Inspection/Auscultation: + abdomen distended and normal bowel sounds Musculoskeletal: Extremities: no cyanosis and no clubbing Skin: normal turgor; no jaundice Neurologic: Motor/Sensory: no tremor and no asterixis Psychiatric: Orientation: alert and oriented x 3 Results & Data ([facility]) Vital Signs (Past 12 Hours) Vital Signs Temp Pulse Resp BP Pulse Ox O2 Del Method 05/06/22 10:00 108 H 19 05/06/22 10:00 100/75 05/06/22 09:11 128/89 05/06/22 09:11 120 H 21 99 05/06/22 09:00 146 H 20 05/06/22 08:00 105 H 24 98 12/20/22 08:00 114/66 05/06/22 07:50 102 H 17 97 05/06/22 07:50 100/72 05/06/22 07:00 105 H 20 98 05/06/22 06:00 108 H 20 96 05/06/22 10:24 37.2 C 05/06/22 08:15 Room Air 05/06/22 05:00 110 H 20 97 05/06/22 04:00 111 H 27 H 97 05/06/22 04:00 113/73 05/06/22 03:00 101 H 29 H 96 05/06/22 02:00 107 H 17 97 05/06/22 01:22 94/67 L 05/06/22 01:22 103 H 18 99 05/06/22 01:00 115 H 25 H 100 05/06/22 03:41 37.0 C 05/06/22 00:00 106 H 20 98 Room Air 05/05/22 23:09 106/66 05/05/22 23:09 102 H 25 H 96 05/05/22 23:00 94 H 22 95 05/06/22 00:00 102 H 05/05/22 23:52 Room Air 05/05/22 23:51 36.7 C Laboratory Results Laboratory Results - last 24 hr 05/05/22 05/05/22 05/05/22 11:42 14:21 15:42 WBC RBC Hgb 8.9 L D Hct MCV MCH MCHC RDW Std Deviation RDW Coeff of [place] Plt Count MPV Immature Gran % (Auto) Neut % (Auto) Lymph % (Auto) [place] % (Auto) Eos % (Auto) Baso % (Auto) Neut # (Auto) Lymph # (Auto) [place] # (Auto) Eos # (Auto) Baso # (Auto) Immature Gran # (Auto) Absolute Nucleated RBC Nucleated RBC % (auto) APTT PTT Ratio Sodium Potassium Chloride Carbon Dioxide Anion Gap BUN Creatinine Est Cr Clr Drug Dosing Est GFR ( Amer) Est GFR (Non-Af Amer) BUN/Creatinine Ratio Glucose POC Glucose 148 H 139 H Calcium 05/05/22 05/05/22 05/05/22 20:47 21:04 21:04 WBC 14.90 H RBC 2.67 L Hgb 7.9 L Hct 22.6 L MCV 84.6 MCH 29.6 MCHC 35.0 RDW Std Deviation 43.2 RDW Coeff of [place] 14.3 Plt Count 220 D MPV 11.4 Immature Gran % (Auto) Neut % (Auto) Lymph % (Auto) [place] % (Auto) Eos % (Auto) Baso % (Auto) Neut # (Auto) Lymph # (Auto) [place] # (Auto) Eos # (Auto) Baso # (Auto) Immature Gran # (Auto) Absolute Nucleated RBC 0.23 H Nucleated RBC % (auto) 1.5 APTT PTT Ratio Sodium 132 L Potassium 4.0 Chloride 100 Carbon Dioxide 23 Anion Gap 9 BUN 63 H Creatinine 1.56 H D Est Cr Clr Drug Dosing 56.0 Est GFR ( Amer) 50.3 Est GFR (Non-Af Amer) 43.4 BUN/Creatinine Ratio 40.4 H Glucose 164 H POC Glucose 177 H Calcium 7.8 L 05/06/22 05/06/22 05/06/22 00:18 00:18 05:25 WBC 14.50 H RBC 2.66 L Hgb 7.9 L 8.0 L Hct 22.9 L 22.8 L MCV 85.7 MCH 30.1 MCHC 35.1 RDW Std Deviation 44.0 RDW Coeff of [place] 14.4 Plt Count 230 MPV 11.4 Immature Gran % (Auto) 0.9 Neut % (Auto) 74.5 Lymph % (Auto) 13.2 [place] % (Auto) 11.0 Eos % (Auto) 0.2 Baso % (Auto) 0.2 Neut # (Auto) 10.80 H Lymph # (Auto) 1.92 [place] # (Auto) 1.59 H Eos # (Auto) 0.03 Baso # (Auto) 0.03 Immature Gran # (Auto) 0.13 H Absolute Nucleated RBC 0.27 H Nucleated RBC % (auto) 1.9 APTT 40.4 H PTT Ratio 1.5 Sodium Potassium Chloride Carbon Dioxide Anion Gap BUN Creatinine Est Cr Clr Drug Dosing Est GFR ( Amer) Est GFR (Non-Af Amer) BUN/Creatinine Ratio Glucose POC Glucose Calcium 05/06/22 05/06/22 05/06/22 05:25 07:25 07:46 WBC RBC Hgb Hct MCV MCH MCHC RDW Std Deviation RDW Coeff of [place] Plt Count MPV Immature Gran % (Auto) Neut % (Auto) Lymph % (Auto) [place] % (Auto) Eos % (Auto) Baso % (Auto) Neut # (Auto) Lymph # (Auto) [place] # (Auto) Eos # (Auto) Baso # (Auto) Immature Gran # (Auto) Absolute Nucleated RBC Nucleated RBC % (auto) APTT 52.2 H* PTT Ratio 1.9 Sodium 134 L Potassium 3.8 Chloride 101 Carbon Dioxide 25 Anion Gap 8 BUN 55 H Creatinine 1.25 D Est Cr Clr Drug Dosing 70.1 Est GFR ( Amer) 65.8 Est GFR (Non-Af Amer) 56.8 BUN/Creatinine Ratio 44.0 H Glucose 136 H POC Glucose 140 H Calcium 7.9 L PG Care Time/CCT Total # of Minutes Spent Total Time Spent with Patient: Total time spent is greater than 50% in coordination of care (as documented) at patient's floor/unit and/or counseling patient: Coding Level of Care Code 46036 Subseq Hosp Care Lvl 3 Diagnoses STACY (acute kidney injury) N17.9 Ischemic cardiomyopathy I25.5 Permanent atrial fibrillation I48.21 Acute occlusion of artery I70.90
--- NOTE | 2022-05-06 12:10 | Surgery Progress Note ---
Date of Service May 06, 2022 Assessment & Plan (1) Acute occlusion of aortoiliac artery: Plan: This gentleman is postoperative day 3 from a embolectomy of bilateral iliac, common femoral, and profundofemoral arteries. 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 He does have a hematoma in both groins and medial aspect which is similar in size to yesterday. Hgb was noted to be 8.0 yesterday, this appears to be stable over multiple blood draws since that time. Pt is having some pain in L lower leg/foot, but foot remains warm with acceptable cap refill. States it feels painful if touched or he moves it. Arterial US ordered by primary service to christine. Admission and Anticipated Discharge Date Admission Date: April 30, 2022 Subjective 71 yo m POD #4 after BL iliac embolectomies and L common fem endarterectomy with patch and R common fem patch angioplasty, seen in f/u today. Pt states he is having some pain and sensitivity in lower left leg/foot. Review of Systems Review of Systems: All systems reviewed & are unremarkable except as noted in HPI & below Physical Exam Constitutional: WD/WN, vitals as above Respiratory: no respiratory distress Cardiovascular: Extremities: normal capillary refill (Slightly decreased in both lower extremities) Feet and lower legs warm and pink Musculoskeletal: Extremities: strength 5/5 throughout Skin: + incision (There are hematomas in both groin incisions. ) groin ecchymosis extends to mid thighs and around hips. Neurologic: moves all extremities; no focal motor deficits Psychiatric: Orientation: alert and oriented x 3 Results & Data ([facility]) Vital Signs (Past 12 Hours) Vital Signs Temp Pulse Resp BP Pulse Ox O2 Del Method 05/06/22 10:00 108 H 19 05/06/22 10:00 100/75 05/06/22 09:11 128/89 05/06/22 09:11 120 H 21 99 05/06/22 09:00 146 H 20 05/06/22 08:00 105 H 24 98 05/06/22 08:00 114/66 05/06/22 07:50 102 H 17 97 05/06/22 07:50 100/72 05/06/22 07:00 105 H 20 98 05/06/22 06:00 108 H 20 96 05/06/22 10:24 37.2 C 05/06/22 08:15 Room Air 05/06/22 05:00 110 H 20 97 05/06/22 04:00 111 H 27 H 97 05/06/22 04:00 113/73 05/06/22 03:00 101 H 29 H 96 05/06/22 02:00 107 H 17 97 05/06/22 01:22 94/67 L 05/06/22 01:22 103 H 18 99 05/06/22 01:00 115 H 25 H 100 05/06/22 03:41 37.0 C
[2022-05-06 13:11] LABS: Hematocrit (blood only) 23.3 % (40.1-51.0); Hemoglobin 8.1 g/dl (14.0-18.0)
[2022-05-06] MEDS: AMIODARONE / D5W 360 MG/200 ML BAG IV SCH (15:08)
[2022-05-06] MEDS: ATORVASTATIN 40 MG TAB PO SCH (15:11)
--- NOTE | 2022-05-06 16:53 | Hospitalist Progress Note ---
Date of Service May 06, 2022 Assessment & Plan (1) Acute occlusion of aortoiliac artery: Plan: Apical thrombus, emboluis from a. fib likely cause of arterial occlusion Initial thrombectomy cancelled on 05/01 due to a. fib with rates 190-210. s/p Bilateral Iliac and Femoral Embolectomy, Left Common Femoral Artery Endarterectomy with Bovine Patch, Right Common Artery Patch Angioplasty (Left) - performed by Dr Sharp [05/02] On heparin IV drip since then, planning on switch to DOAC vs. warfarin on discharge. concern for hematoma right groin will recheck hgb in the afternoon (2) Atrial fibrillation with rapid ventricular response: Plan: metoprolol succinate and digoxin. Followed but EP DR Hopper, Rate appears to be inappropriate Earlier did have some hypotension Anticoagulation with IV heparin as above (3) STACY (acute kidney injury): Plan: Significant Cr rise to 2.84 (baseline 0.73) and creatinine is 1.25 CT A/P r/o obstructive cause 05/04/22 No evidence of hydronephrosis or hydroureter in this patient with acute renal failure. Suspected ATN in setting of hypotension previously with A. fib RVR +/- possible emboli given recent thrombectomy. Already on dual antiplatelets and heparin therefore would not change treatment for possible emboli. Gimenez catheter placed 05/04 to accurately measure urine output Consult nephrology - will place patient on maintenance Normosol. (4) Ischemic cardiomyopathy: Plan: LVEF < 15% with chronic HFrEF currently patient is not in acute HFrEF -> carefully monitor for hypervolemia with IV fluids given as also received NSS yesterday. Continue metoprolol succinate as above (5) LV (left ventricular) mural thrombus: Plan: Anticoagulation as above (6) Restless leg syndrome: Plan: Continue ropinirole 0.5mg @ 8pm (7) Subarachnoid hemorrhage: Plan: History of subdural hematoma in August 2020. 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 trace subarachnoid hemorrhage, less apparent on repeat scan. Low threshold to repeat if he develops a headache since he is on DAPT and anticogulation. (8) Gout: Plan: Continue allopurinol 100mg PO daily (9) CAD (coronary artery disease): Plan: Continue aspirin, clopidogrel, metoprolol, atorvastatin Plan VTE Prophylaxis - heparin IV Diet - heart healthy, T2DM Disposition - continue on PCU Admission and Anticipated Discharge Date Admission Date: April 30, 2022 Subjective 71 yo m POD #5 after BL iliac embolectomies and L common fem endarterectomy with patch and R common fem patch angioplasty, seen in f/u today. Pt states he is having some pain and sensitivity in lower left leg/foot. Physical Exam Physical Exam: The patient appeared stable Vital signs as documented. Lungs are clear to auscultation and appear unlabored diminished at the bases Cardiac exam, Rhythm is regular.. No murmurs, rubs or gallops. Abdominal exam reveals normal bowel sounds, soft non tender, no masses Extremities are chronic venous stasis changes but capillary refill and pulses are intact Neurologic exam is alert and oriented, no focal loss of strength or sensation Skin is with bruising from recent vascular intervention in the groins bilaterally Psychologically is without concerns for anxiety or depression. Constitutional: WD/WN, vitals as above well developed, well nourished, + ill appearing, + obese, cooperative and comfortable; no acute distress Cardiovascular: RRR, no murmur, no edema Rate/Rhythm: regular rate, regular rhythm, + tachycardic and + irregularly irregular Heart Sounds: normal S1 and normal S2; no murmur Extremities: normal capillary refill (Slightly decreased in both lower extremities) and + pedal edema Gastrointestinal (Abdomen): normal bowel sounds, soft, nontender, no hepatosplenomegaly Inspection/Auscultation: abdomen normal to inspection, + abdomen distended and normal bowel sounds Percussion/Palpation: abdomen soft; abdomen nontender, no guarding and abdomen not rigid Results & Data Results & Data ([facility]) Vital Signs (Past 12 Hours) Vital Signs Temp Pulse Resp BP Pulse Ox O2 Del Method 05/06/22 16:00 36.6 C 05/06/22 16:00 98 H 05/06/22 10:00 108 H 19 05/06/22 10:00 100/75 05/06/22 09:11 128/89 05/06/22 09:11 120 H 21 99 05/06/22 09:00 146 H 20 05/06/22 08:00 105 H 24 98 12/20/22 08:00 114/66 05/06/22 07:50 102 H 17 97 05/06/22 07:50 100/72 05/06/22 07:00 105 H 20 98 05/06/22 06:00 108 H 20 96 05/06/22 10:24 37.2 C 05/06/22 08:15 Room Air 05/06/22 05:00 110 H 20 97 PG Care Time/CCT Total # of Minutes Spent Total Time Spent with Patient: Total time spent is greater than 50% in coordination of care (as documented) at patient's floor/unit and/or counseling patient: Coding Level of Care Code 96773 Subseq Hosp Care Lvl 3 Diagnoses Acute occlusion of aortoiliac artery I74.09 Atrial fibrillation with rapid ventricular response I48.91 STACY (acute kidney injury) N17.9 Ischemic cardiomyopathy I25.5 LV (left ventricular) mural thrombus I51.3 Restless leg syndrome G25.81 Subarachnoid hemorrhage I60.9 Gout M10.9 CAD (coronary artery disease) I25.10
[2022-05-06] MEDS: rOPINIRole HCL 0.25 MG TABLET PO SCH (21:29)
[2022-05-07] MEDS: HYDROmorphone INJ 0.5 MG/0.5 ML SYR IV PRN ×3 (05:13→21:45)
[2022-05-07] MEDS: AMIODARONE / D5W 360 MG/200 ML BAG IV SCH ×2 (05:38→16:49)
[2022-05-07] MEDS: HEPARIN SODIUM/DEXTROSE 25,000 UNITS/500 ML BAG IV SCH (06:06)
[2022-05-07 06:26] LABS: Basophils # (auto) 0.03 K/uL (0-0.2); Basophils % (auto) 0.2 %; Eosinophils # (auto) 0.03 K/uL (0-0.50); Eosinophils % (auto) 0.2 %; Hematocrit (blood only) 21.7 % (40.1-51.0); Hemoglobin 7.4 g/dl (14.0-18.0); Immature Granulocytes % (auto) 1.9 %; Lymphocytes # (auto) 1.62 K/uL (1.2-3.4); Lymphocytes % (auto) 10.4 %; Mean Corpuscular Hgb Conc 34.1 g/dL (32.0-36.0); Mean Corpuscular Volume 87.9 fL (80.0-100.0); Mean Platelet Volume 10.8 fL (9.4-12.4); Monocytes # (auto) 1.71 K/uL (0.24-0.82); Monocytes % (auto) 10.9 %; Neutrophils # (auto) 11.94 K/uL (1.4-6.5); Neutrophils % (auto) 76.4 %; Nucleated RBC # (auto) 0.39 K/uL (0-0); Nucleated RBC % (auto) 2.5 %; Platelet Count 258 K/uL (130-400); RDW Standard Deviation 46.5 fL (36.4-46.3); Red Blood Count 2.47 M/uL (4.63-6.08); White Blood Count 15.63 K/ul (4.8-10.8)
[2022-05-07 06:28] LABS: Partial Thromboplastin Ratio 1.5; Partial Thromboplastin Time 41.6 Seconds (21.0-31.0)
[2022-05-07 06:53] LABS: Creatinine Clr Calc Pharmacy 109.5 ml/min; Est GFR (African American) 102.7 ml/min; Est GFR (Non-African American) 88.6 ml/min
[2022-05-07 06:54] LABS: Polychromasia 1+
[2022-05-07 07:36] LABS: BUN Creatinine Ratio 42.5 (10-20); Calcium 8.1 mg/dl (8.5-10.1); Potassium 3.7 mmol/L (3.5-5.1)
--- NOTE | 2022-05-07 08:53 | CT Scan Report ---
CT OF THE HEAD WITHOUT CONTRAST CLINICAL HISTORY: Altered mental status. COMPARISON STUDY: Head CT May 01, 2022. CT DOSE: 537.48 mGy.cm TECHNIQUE: Helical axial images of the head were obtained without IV contrast. Automated exposure con trol was utilized for the study. A dose lowering technique was utilized adhering to the principles o f ALARA. FINDINGS: No acute intracranial hemorrhage, midline shift or mass effect is present. Ventricular syst em is normal. Basal cisterns are patent. There are no extra-axial collections. Bilateral craniotomies are noted. The trace subarachnoid hemorrhage overlying the right frontoparietal convexity on head CT of April 30, 2022 is no longer identified. A small focus of encephalomalacia within the left occi pital lobe is unchanged. An additional small focus of encephalomalacia within the right frontal lobe is unchanged. White matter hypodensity suggests small vessel disease. Subtle hypodensity within the r ight parietal lobe is less conspicuous than on prior exam. IMPRESSION: No acute intracranial findings. ACT 112: Negative or not required by law. Electronically signed by: Dami Gongora M.D. 05/07/2022 8:51 AM
[2022-05-07] MEDS: INSULIN ASPART PER UNIT SC SCH ×4 (09:27→19:49)
[2022-05-07] MEDS: allopurinoL 100 MG TAB PO SCH (09:28)
[2022-05-07] MEDS: METOPROLOL SUCC 50MG EXT REL TAB PO SCH (09:28)
[2022-05-07] MEDS: ASPIRIN 81 MG ECTAB PO SCH (09:28)
--- NOTE | 2022-05-07 10:20 | Nephrology Progress Note ---
Date of Service May 07, 2022 Assessment & Plan (1) STACY (acute kidney injury): Plan: Creatinine normalized. Non-oliguric. Electrolytes acceptable. Volume status remains relatively euvolemic. Gimenez remains intact but from a nephrology standpoint may be removed at any time per nursing protocol once mobile. Medications are appropriately dosed for kidney function. Diuretics have been held. Typically furosemide 10 mg is taken PRN at home. Goal is to maintain even fluid balance. If he remains in a positive fluid balance today, consider giving PO furosemide. I have nothing else to add at this time and will only follow peripherally, please call with questions or concerns. (2) Ischemic cardiomyopathy: Plan: Volume status relatively acceptable with some increased rales. Appreciate ca rdiology consultation. DGoal is to maintain even fluid balance. Avoid ASHISH/ARB now. (3) Permanent atrial fibrillation: (4) Acute occlusion of artery: Plan: POD #5 s/p BL iliac embolectomy and left common femoral endarterectomy. Admission and Anticipated Discharge Date Admission Date: April 30, 2022 Subjective Confusion noted overnight. Remains in atrial fibrillation with rapid rate. BP stable. Jason was resting comfortably in bed this AM with his daughter at the bedside. No fevers or chills. He denies significant pain but does report discomfort in the left groin radiating down the medial aspect of the leg to the knee. Intermittent paraesthesias in feet overnight. CT of the pelvis and of the head were completed. Gimenez remains intact. He denies chest pain or palpitations. No shortness of breath. Review of Systems Review of Systems: All systems reviewed & are unremarkable except as noted in HPI & below Physical Exam Constitutional: well developed and + ill appearing; no acute distress Eyes: + anicteric sclerae; no corneal abnormality ENMT: Mouth: no oral mucosal abnormality and oral mucous membranes not dry Neck: normal visual inspection and trachea midline Respiratory: normal respiratory effort Auscultation: lungs clear to auscultation bilaterally and + rales Cardiovascular: Rate/Rhythm: regular rhythm, + tachycardic and + irregularly irregular Heart Sounds: normal S1 and normal S2 Extremities: + edema Gastrointestinal (Abdomen): Inspection/Auscultation: + abdomen distended and normal bowel sounds Musculoskeletal: Extremities: no cyanosis and no clubbing Skin: normal turgor; no jaundice Neurologic: Motor/Sensory: no tremor and no asterixis Psychiatric: Orientation: alert and oriented x 3 Results & Data ([facility]) Vital Signs (Past 12 Hours) Vital Signs Temp Pulse Resp BP Pulse Ox O2 Del Method 05/07/22 06:00 103 H 95 05/07/22 05:00 101 H 12 99 05/07/22 05:00 115/87 05/07/22 04:43 124/73 05/07/22 04:43 107 H 23 98 05/07/22 04:00 108 H 35 H 98 05/07/22 02:01 114 H 16 96 05/07/22 02:01 132/77 05/07/22 02:00 108 H 17 98 05/07/22 01:50 140/80 05/07/22 01:50 115 H 15 98 05/07/22 01:01 115 H 29 H 96 05/07/22 01:01 85/66 L 05/07/22 00:00 115 H 23 97 05/07/22 00:00 115/84 05/06/22 23:50 36.8 C 05/07/22 00:00 115 H 05/06/22 23:00 82/66 L 05/06/22 23:00 115 H 18 96 05/06/22 23:16 Room Air Laboratory Results Laboratory Results - last 24 hr 05/06/22 05/06/22 05/06/22 11:53 12:51 16:27 WBC RBC Hgb 8.1 L Hct 23.3 L MCV MCH MCHC RDW Std Deviation RDW Coeff of [place] Plt Count MPV Immature Gran % (Auto) Neut % (Auto) Lymph % (Auto) [place] % (Auto) Eos % (Auto) Baso % (Auto) Neut # (Auto) Lymph # (Auto) [place] # (Auto) Eos # (Auto) Baso # (Auto) Immature Gran # (Auto) Absolute Nucleated RBC Nucleated RBC % (auto) Polychromasia APTT PTT Ratio Sodium Potassium Chloride Carbon Dioxide Anion Gap BUN Creatinine Est Cr Clr Drug Dosing Est GFR ( Amer) Est GFR (Non-Af Amer) BUN/Creatinine Ratio Glucose POC Glucose 161 H 124 H Calcium 05/06/22 05/07/22 05/07/22 21:26 05:44 05:44 WBC 15.63 H RBC 2.47 L Hgb 7.4 L Hct 21.7 L MCV 87.9 MCH 30.0 MCHC 34.1 RDW Std Deviation 46.5 H RDW Coeff of [place] 15.0 H Plt Count 258 MPV 10.8 Immature Gran % (Auto) 1.9 Neut % (Auto) 76.4 Lymph % (Auto) 10.4 [place] % (Auto) 10.9 Eos % (Auto) 0.2 Baso % (Auto) 0.2 Neut # (Auto) 11.94 H Lymph # (Auto) 1.62 [place] # (Auto) 1.71 H Eos # (Auto) 0.03 Baso # (Auto) 0.03 Immature Gran # (Auto) 0.30 H Absolute Nucleated RBC 0.39 H Nucleated RBC % (auto) 2.5 Polychromasia 1+ APTT 41.6 H PTT Ratio 1.5 Sodium Potassium Chloride Carbon Dioxide Anion Gap BUN Creatinine Est Cr Clr Drug Dosing Est GFR ( Amer) Est GFR (Non-Af Amer) BUN/Creatinine Ratio Glucose POC Glucose 122 H Calcium 05/07/22 05/07/22 05:44 07:33 WBC RBC Hgb Hct MCV MCH MCHC RDW Std Deviation RDW Coeff of [place] Plt Count MPV Immature Gran % (Auto) Neut % (Auto) Lymph % (Auto) [place] % (Auto) Eos % (Auto) Baso % (Auto) Neut # (Auto) Lymph # (Auto) [place] # (Auto) Eos # (Auto) Baso # (Auto) Immature Gran # (Auto) Absolute Nucleated RBC Nucleated RBC % (auto) Polychromasia APTT PTT Ratio Sodium 137 Potassium 3.7 Chloride 102 Carbon Dioxide 27 Anion Gap 8 BUN 34 H D Creatinine 0.80 D Est Cr Clr Drug Dosing 109.5 Est GFR ( Amer) 102.7 Est GFR (Non-Af Amer) 88.6 BUN/Creatinine Ratio 42.5 H Glucose 132 H POC Glucose 141 H Calcium 8.1 L PG Care Time/CCT Total # of Minutes Spent Total Time Spent with Patient: Total time spent is greater than 50% in coordination of care (as documented) at patient's floor/unit and/or counseling patient: Coding Level of Care Code 15532 Subseq Hosp Care Lvl 3 Diagnoses STACY (acute kidney injury) N17.9 Ischemic cardiomyopathy I25.5 Permanent atrial fibrillation I48.21 Acute occlusion of artery I70.90
[2022-05-07] MEDS: ATORVASTATIN 40 MG TAB PO SCH (16:58)
[2022-05-07] MEDS: ACETAMINOPHEN 325 MG TAB PO PRN (17:12)
[2022-05-07 17:15] LABS: Partial Thromboplastin Ratio 1.8
[2022-05-07 17:29] LABS: Partial Thromboplastin Time 50.2 Seconds (21.0-31.0)
--- NOTE | 2022-05-07 17:46 | Hospitalist Progress Note ---
Date of Service May 07, 2022 Assessment & Plan (1) Acute occlusion of aortoiliac artery: Plan: Apical thrombus, emboluis from a. fib likely cause of arterial occlusion s/p Bilateral Iliac and Femoral Embolectomy, Left Common Femoral Artery Endarterectomy with Bovine Patch, Right Common Artery Patch Angioplasty (Left) - performed by Dr Sharp [05/02] On heparin IV drip since then, planning on switch to DOAC vs. warfarin on discharge. Complicated with hematoma, hematoma is regressing hemoglobin is stable repeat CBC tomorrow Currently the patient has wound VAC (2) Atrial fibrillation with rapid ventricular response: Plan: Currently the heart rate is controlled, continue current management blood pressure stable, currently on heparin drip (3) STACY (acute kidney injury): Plan: Significant Cr rise to 2.84, currently hemodynamically stable, creatinine reported to baseline CT A/P r/o obstructive cause 05/04/22 No evidence of hydronephrosis or hydroureter in this patient with acute renal failure. Suspected ATN in setting of hypotension previously with A. fib RVR +/- possible emboli given recent thrombectomy. Already on dual antiplatelets and heparin therefore would not change treatment for possible emboli. Gimenez catheter placed 05/04 to accurately measure urine output Consult nephrology - will place patient on maintenance Normosol. (4) Ischemic cardiomyopathy: Plan: LVEF < 15% with chronic HFrEF currently patient is not in acute HFrEF -> carefully monitor for hypervolemia with IV fluids given as also received NSS yesterday. Continue metoprolol succinate as above (5) LV (left ventricular) mural thrombus: Plan: Anticoagulation as above (6) Restless leg syndrome: Plan: Discussed with her daughter hold for now (7) Subarachnoid hemorrhage: Plan: History of subdural hematoma in August 2020. 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 trace subarachnoid hemorrhage, less apparent on repeat scan. Low threshold to repeat if he develops a headache since he is on DAPT and anticogulation. (8) Gout: Plan: Continue allopurinol 100mg PO daily (9) CAD (coronary artery disease): Plan: Continue aspirin, clopidogrel, metoprolol, atorvastatin (10) Urinary retention: Plan: Postoperatively patient developed urine retention, failed first voiding trial, Gimenez catheter (coud catheter) reinserted, -Started on Flomax on05/07 we will attempt to do voiding trial in the next few days Plan VTE Prophylaxis - heparin IV Diet - heart healthy, T2DM Disposition - continue on PCU Admission and Anticipated Discharge Date Admission Date: April 30, 2022 Subjective The patient is clinically improving, patient seems frustrated most likely because he has been staying in the hospital too long, discussed with the daughter in details Review of Systems Review of Systems: Mild distress and fatigue no headache, no visual changes no speech or swallowing issues no chest pain, pressure or palpitations no shortness of breath, cough or wheezes no abdominal pain, nausea or vomiting, diarrhea or constipation no dysuria, hematuria or frequency no focal joint pain or swelling no back pain, CVA tenderness or radicular pain Bruising and hematoma at access sites for recent vascular intervention Chronic venous stasis changes to his lower extremities no focal signs of weakness or numbness or altered sensation no complaints of anxiety or depression.. Constitutional: no fever and no sweats Eyes: no blind spots Ear, Nose, Mouth, Throat: no ear pain Respiratory: no cough Cardiovascular: no chest pain Gastrointestinal: no abdominal pain Genitourinary: no dysuria Musculoskeletal: no loss of height Integumentary: no acne Neurologic: no localized weakness Psychiatric: no behavioral changes Endocrine: no fatigue Hematologic / Lymphatic: no easy bleeding Allergy / Immunological: no GI upset with certain foods Physical Exam Physical Exam: The patient appeared stable Vital signs as documented. Lungs are clear to auscultation and appear unlabored diminished at the bases Cardiac exam, Rhythm is regular.. No murmurs, rubs or gallops. Abdominal exam reveals normal bowel sounds, soft non tender, no masses Extremities are chronic venous stasis changes but capillary refill and pulses are intact Neurologic exam is alert and oriented, no focal loss of strength or sensation Skin is with bruising from recent vascular intervention in the groins bilaterally Psychologically is without concerns for anxiety or depression. Constitutional: WD/WN, vitals as above well developed, well nourished, + ill appearing, + obese, cooperative and comfortable; no acute distress Cardiovascular: RRR, no murmur, no edema Rate/Rhythm: regular rate, regular rhythm, + tachycardic and + irregularly irregular Heart Sounds: normal S1 and normal S2; no murmur Extremities: normal capillary refill (Slightly decreased in both lower extremities) and + pedal edema Gastrointestinal (Abdomen): normal bowel sounds, soft, nontender, no hepatosplenomegaly Inspection/Auscultation: abdomen normal to inspection, + abdomen distended and normal bowel sounds Percussion/Palpation: abdomen soft; abdomen nontender, no guarding and abdomen not rigid Results & Data Results & Data ([facility]) Vital Signs (Past 12 Hours) Vital Signs Pulse Pulse Resp BP BP Pulse Ox O2 Del Method 05/07/22 17:04 96 H 14 126/80 95 Room Air 05/07/22 16:00 95 H 05/07/22 12:00 95 H 94 05/07/22 10:00 95 H 05/07/22 09:04 102 H 05/07/22 09:04 105/77 05/07/22 08:00 95 H 18 99 05/07/22 08:00 105/69 05/07/22 06:45 106 H 18 97 05/07/22 11:35 95 H 05/07/22 08:00 103 H 05/07/22 06:00 103 H 95 PG Care Time/CCT Total # of Minutes Spent Total Time Spent with Patient: Total time spent is greater than 50% in coordination of care (as documented) at patient's floor/unit and/or counseling patient: Coding Level of Care Code 73511 Subseq Hosp Care Lvl 3 Diagnoses Acute occlusion of aortoiliac artery I74.09 Atrial fibrillation with rapid ventricular response I48.91 STACY (acute kidney injury) N17.9 Ischemic cardiomyopathy I25.5 LV (left ventricular) mural thrombus I51.3 Restless leg syndrome G25.81 Subarachnoid hemorrhage I60.9 Gout M10.9 CAD (coronary artery disease) I25.10 Urinary retention R33.9
[2022-05-07] MEDS: TAMSULOSIN HCL 0.4 MG CAP PO SCH (19:44)
[2022-05-07] MEDS: rOPINIRole HCL 0.25 MG TABLET PO SCH (19:44)
[2022-05-07] MEDS: GABAPENTIN 300 MG CAP PO SCH (19:44)
[2022-05-08] MEDS: HEPARIN SODIUM/DEXTROSE 25,000 UNITS/500 ML BAG IV SCH ×3 (00:50→17:29)
[2022-05-08 05:57] LABS: Basophils # (auto) 0.05 K/uL (0-0.2); Basophils % (auto) 0.3 %; Eosinophils # (auto) 0.09 K/uL (0-0.50); Eosinophils % (auto) 0.5 %; Hematocrit (blood only) 21.4 % (40.1-51.0); Hemoglobin 7.3 g/dl (14.0-18.0); Immature Granulocytes # (auto) 0.55 K/uL (0.00-0.02); Immature Granulocytes % (auto) 3.3 %; Lymphocytes # (auto) 2.06 K/uL (1.2-3.4); Lymphocytes % (auto) 12.4 %; Mean Corpuscular Hemoglobin 29.6 pg (25.0-34.0); Mean Corpuscular Hgb Conc 34.1 g/dL (32.0-36.0); Mean Corpuscular Volume 86.6 fL (80.0-100.0); Mean Platelet Volume 9.7 fL (9.4-12.4); Monocytes # (auto) 1.73 K/uL (0.24-0.82); Monocytes % (auto) 10.4 %; Neutrophils # (auto) 12.19 K/uL (1.4-6.5); Neutrophils % (auto) 73.1 %; Nucleated RBC # (auto) 0.33 K/uL (0-0); Platelet Count 266 K/uL (130-400); RDW Coefficient of Variation 15.5 % (11.5-14.5); RDW Standard Deviation 48.1 fL (36.4-46.3); Red Blood Count 2.47 M/uL (4.63-6.08); White Blood Count 16.67 K/ul (4.8-10.8)
[2022-05-08 06:26] LABS: Partial Thromboplastin Ratio 2.6
[2022-05-08 06:59] LABS: Polychromasia 2+
[2022-05-08 07:05] LABS: Partial Thromboplastin Time 72.2 Seconds (21.0-31.0)
--- NOTE | 2022-05-08 07:46 | Pharmacy Report ---
Pharmacy Glycemic Sign Off Nt - Date of Service May 08, 2022 - Assessment & Plan ASSESSMENT: * Pharmacy was consulted by Dr Kwan on 05/04 for glycemic control and to write orders per [facility] inpatient glycemic control protocol. * Major changes made by pharmacy to antidiabetic regimen include: * hold PO meds and switched to novolog scale for inpatient use * Patient has been receiving/requiring 3-4 units of insulin per day for adequate glycemic control * BSGs ranging 124-141 mg/dl * Regimen has only required minor adjustments over the past 48hrs to achieve this level of control * Do not anticipate further changes in patient status that would quickly deteriorate glycemic control (i.e. patient to be NPO for upcoming procedure, steroids tapering, starting tube feedings, etc). * Please see recommendations for outpatient antidiabetic regimen below. PLAN FOR INPATIENT GLYCEMIC CONTROL: No changes needed to current regimen. * Continue NovoLog per scale ACHS/Q6hrs while NPO * Goal range = 110 140 mg/dl * CF = 30 mg/dl/unit * CR = 1 unit for ever 12 g CHO consumed Patient can resume metformin on discharge if no new contraindications. * Pharmacy is signing off of glycemic consult and will no longer be making adjustments to inpatient regimen. Please feel free to re-consult if needed. Thank you.
[2022-05-08] MEDS: ACETAMINOPHEN 325 MG TAB PO PRN (08:12)
[2022-05-08] MEDS: ASPIRIN 81 MG ECTAB PO SCH (08:13)
[2022-05-08] MEDS: METOPROLOL SUCC 50MG EXT REL TAB PO SCH (08:13)
[2022-05-08] MEDS: allopurinoL 100 MG TAB PO SCH (08:13)
[2022-05-08] MEDS: INSULIN ASPART PER UNIT SC SCH ×4 (08:13→20:17)
[2022-05-08] MEDS: HYDROmorphone INJ 0.5 MG/0.5 ML SYR IV PRN (09:28)
[2022-05-08] MEDS ORDERED: FUROSEMIDE 20 MG TAB PO PRN (10:31)
--- NOTE | 2022-05-08 11:22 | Nephrology Progress Note ---
Date of Service May 08, 2022 Assessment & Plan (1) STACY (acute kidney injury): Plan: Improved with supportive care. Demonstrating evidence of fluid retention. PRN furosemide ordered as per home regimen which can be provided today accordingly. Repeat metabolic profile tomorrow AM. Gimenez remains intact. The patient is receiving tamsulosin with plans to remove the catheter for voiding trial within the next 24 hours. Medications are appropriately dosed for kidney function. I have nothing else to add at this time and will only follow peripherally, please call with questions or concerns. (2) Ischemic cardiomyopathy: Plan: Volume status relatively acceptable with some increased fluid retention noted. Encourage a single dose of furosemide PO today. (3) Permanent atrial fibrillation: (4) Acute occlusion of artery: Plan: POD #6 s/p BL iliac embolectomy and left common femoral endarterectomy. H/H stable. Admission and Anticipated Discharge Date Admission Date: April 30, 2022 Subjective No acute events overnight. Mr. Cabrera was resting comfortably in bed this AM. He feels well. Denies significant pain. No notable dyspnea. No chest pain or palpitations. I was altered by the patient's RN that Mr. Cabrera is experiencing increased fluid retention. He remains in a positive fluid balance and the patient is receptive to taking a dose of PRN furosemide today. Review of Systems Review of Systems: All systems reviewed & are unremarkable except as noted in HPI & below Physical Exam Constitutional: well developed; no acute distress Eyes: + anicteric sclerae; no corneal abnormality Neck: normal visual inspection and trachea midline Respiratory: normal respiratory effort Auscultation: lungs clear to au scultation bilaterally and + rales Cardiovascular: Rate/Rhythm: + irregularly irregular Heart Sounds: normal S1 and normal S2 Extremities: + edema Musculoskeletal: Extremities: no cyanosis and no clubbing Skin: normal turgor; no jaundice Neurologic: Motor/Sensory: no tremor and no asterixis Psychiatric: Orientation: alert and oriented x 3 Results & Data ([facility]) Vital Signs (Past 12 Hours) Vital Signs Temp Pulse Pulse Resp BP BP Pulse Ox 05/08/22 08:55 36.3 C L 97 H 14 110/55 L 96 05/08/22 08:00 99 H 05/08/22 05:45 99 H 26 H 98 05/08/22 05:45 120/69 05/08/22 04:00 101 H 23 89 L 05/08/22 02:00 93 H 27 H 96 05/08/22 00:00 88 24 98 05/08/22 05:45 37.1 C 05/08/22 00:00 93 H 05/07/22 23:27 O2 Del Method 05/08/22 08:55 Room Air 05/08/22 08:00 05/08/22 05:45 05/08/22 05:45 05/08/22 04:00 05/08/22 02:00 05/08/22 00:00 05/08/22 05:45 05/08/22 00:00 05/07/22 23:27 Room Air Laboratory Results Laboratory Results - last 24 hr 05/07/22 05/07/22 05/07/22 16:12 16:19 19:48 WBC RBC Hgb Hct MCV MCH MCHC RDW Std Deviation RDW Coeff of Moriah Plt Count MPV Immature Gran % (Auto) Neut % (Auto) Lymph % (Auto) Mccone % (Auto) Eos % (Auto) Baso % (Auto) Neut # (Auto) Lymph # (Auto) Mccone # (Auto) Eos # (Auto) Baso # (Auto) Immature Gran # (Auto) Absolute Nucleated RBC Nucleated RBC % (auto) Polychromasia APTT 50.2 H* PTT Ratio 1.8 POC Glucose 129 H 124 H 05/08/22 05/08/22 05/08/22 05:44 05:44 07:31 WBC 16.67 H RBC 2.47 L Hgb 7.3 L Hct 21.4 L MCV 86.6 MCH 29.6 MCHC 34.1 RDW Std Deviation 48.1 H RDW Coeff of Moriah 15.5 H Plt Count 266 MPV 9.7 Immature Gran % (Auto) 3.3 Neut % (Auto) 73.1 Lymph % (Auto) 12.4 Mccone % (Auto) 10.4 Eos % (Auto) 0.5 Baso % (Auto) 0.3 Neut # (Auto) 12.19 H Lymph # (Auto) 2.06 Mccone # (Auto) 1.73 H Eos # (Auto) 0.09 Baso # (Auto) 0.05 Immature Gran # (Auto) 0.55 H Absolute Nucleated RBC 0.33 H Nucleated RBC % (auto) 2.0 Polychromasia 2+ APTT 72.2 H* PTT Ratio 2.6 POC Glucose 129 H PG Care Time/CCT Total # of Minutes Spent Total Time Spent with Patient: Total time spent is greater than 50% in coordination of care (as documented) at patient's floor/unit and/or counseling patient: Coding Level of Care Code 30943 Subseq Hosp Care Lvl 3 Diagnoses STACY (acute kidney injury) N17.9 Ischemic cardiomyopathy I25.5 Permanent atrial fibrillation I48.21 Acute occlusion of artery I70.90
[2022-05-08 14:16] LABS: Partial Thromboplastin Time 55.5 Seconds (21.0-31.0)
--- NOTE | 2022-05-08 14:43 | Hospitalist Progress Note ---
Date of Service May 08, 2022 Assessment & Plan (1) Acute occlusion of aortoiliac artery: Plan: Apical thrombus, emboluis from a. fib likely cause of arterial occlusion s/p Bilateral Iliac and Femoral Embolectomy, Left Common Femoral Artery Endarterectomy with Bovine Patch, Right Common Artery Patch Angioplasty (Left) - performed by Dr Sharp [05/02] On heparin IV drip since then, planning on switch to DOAC vs. warfarin on discharge. Complicated with hematoma, hematoma is regressing hemoglobin is stable repeat CBC tomorrow Currently the patient has wound VAC (2) Atrial fibrillation with rapid ventricular response: Plan: Currently the heart rate is controlled, continue current management blood pressure stable, currently on heparin drip status post CABG 2018 which included a left atrial appendage exclusion procedure (3) STACY (acute kidney injury): Plan: Significant Cr rise to 2.84, currently hemodynamically stable, creatinine improved to baseline CT A/P r/o obstructive cause 05/04/22 No evidence of hydronephrosis or hydroureter in this patient with acute renal failure. Suspected ATN in setting of hypotension previously with A. fib RVR +/- possible emboli given recent thrombectomy. Already on dual antiplatelets and heparin therefore would not change treatment for possible emboli. Gimenez catheter placed 05/04 to accurately measure urine output patient failed voiding trial postoperatively, required coud catheter inserted, started on Flomax, proceed with voiding trial when the patient is more ambulatory (4) Ischemic cardiomyopathy: Plan: LVEF < 15% with chronic HFrEF currently patient is not in acute HFrEF -> carefully monitor for hypervolemia with IV fluids given as also received NSS yesterday. Continue metoprolol succinate as above (5) LV (left ventricular) mural thrombus: Plan: Anticoagulation as above (6) Restless leg syndrome: Plan: Currently on Requip (7) Subarachnoid hemorrhage: Plan: History of subdural hematoma in August 2020. 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 trace subarachnoid h emorrhage, less apparent on repeat scan. Low threshold to repeat if he develops a headache since he is on DAPT and anticogulation. (8) Gout: Plan: Continue allopurinol 100mg PO daily (9) CAD (coronary artery disease): Plan: Continue aspirin, clopidogrel, metoprolol, atorvastatin (10) Urinary retention: Plan: Postoperatively patient developed urine retention, failed first voiding trial, Gimenez catheter (coud catheter) reinserted, -Started on Flomax on05/07 we will attempt to do voiding trial in the next few days (11) Acute anemia: Plan: Hemoglobin is slightly trending down, proceed with IV iron transfusion (12) Diabetes: Plan: Patient has been taking metformin at home, resume metformin on 05/07 (13) Gout: Plan: Continue allopurinol (14) AICD (automatic cardioverter/defibrillator) present: Plan: ischemic cardiomyopathy (EF 15 to 20%), status post CABG 2018 which included a left atrial appendage exclusion procedure, status post AICD Plan The patient is ready for discharge, discussed with surgical team, surgical to recommend to have a follow-up office visit in 2 weeks, patient is high risk of readmission given her multiple comorbidities, high risk of bleeding given patient dual antiplatelet agent as well as heparin, patient will be downgraded to telemetry bed, discussed with the child support case officer for possible transfer to rehab, voiding trial in the next couple of days Admission and Anticipated Discharge Date Admission Date: April 30, 2022 Subjective No acute issues over time, PT is ordered, patient is downgraded to telemetry bed, patient does not have any complaint, patient has some minimal discharge from his penis meatus, patient currently has indwelling catheter, the plan is to remove the catheter when the patient is ambulatory, currently patient is Flomax, patient hemodynamically stable, history of A. fib, currently rate controlled, be proceed with oral anticoagulation upon discharge, I spoke to the patient and her daughter yesterday about the risk versus benefits of chronic anticoagulation in the setting of having history of intracranial hemorrhage Physical Exam Physical Exam: The patient appeared stable Vital signs as documented. Lungs are clear to auscultation and appear unlabored diminished at the bases Cardiac exam, Rhythm is regular.. No murmurs, rubs or gallops. Abdominal exam reveals normal bowel sounds, soft non tender, no masses Extremities are chronic venous stasis changes but capillary refill and pulses are intact Neurologic exam is alert and oriented, no focal loss of strength or sensation Skin is with bruising from recent vascular intervention in the groins bilaterally Psychologically is without concerns for anxiety or depression. Constitutional: WD/WN, vitals as above well developed, well nourished, + ill appearing, + obese, cooperative and comfortable; no acute distress Cardiovascular: RRR, no murmur, no edema Rate/Rhythm: regular rate, regular rhythm, + tachycardic and + irregularly irregular Heart Sounds: normal S1 and normal S2; no murmur Extremities: normal capillary refill (Slightly decreased in both lower extremities) and + pedal edema Gastrointestinal (Abdomen): normal bowel sounds, soft, nontender, no hepatosplenomegaly Inspection/Auscultation: abdomen normal to inspection, + abdomen distended and normal bowel sounds Percussion/Palpation: abdomen soft; abdomen nontender, no guarding and abdomen not rigid Results & Data Results & Data ([facility]) Vital Signs (Past 12 Hours) Vital Signs Temp Pulse Pulse Resp BP BP Pulse Ox 05/08/22 12:34 97 H 16 107/63 97 05/08/22 12:00 99 H 05/08/22 08:55 36.3 C L 97 H 14 110/55 L 96 05/08/22 08:00 99 H 05/08/22 05:45 99 H 26 H 98 05/08/22 05:45 120/69 05/08/22 04:00 101 H 23 89 L 05/08/22 05:45 37.1 C O2 Del Method 05/08/22 12:34 Room Air 05/08/22 12:00 05/08/22 08:55 Room Air 05/08/22 08:00 05/08/22 05:45 05/08/22 05:45 05/08/22 04:00 05/08/22 05:45 PG Care Time/CCT Total # of Minutes Spent Total Time Spent with Patient: Total time spent is greater than 50% in coordination of care (as documented) at patient's floor/unit and/or counseling patient: Coding Level of Care Code 99164 Subseq Hosp Care Lvl 3 Diagnoses Acute occlusion of aortoiliac artery I74.09 Atrial fibrillation with rapid ventricular response I48.91 STACY (acute kidney injury) N17.9 Ischemic cardiomyopathy I25.5 LV (left ventricular) mural thrombus I51.3 Restless leg syndrome G25.81 Subarachnoid hemorrhage I60.9 Gout M10.9 CAD (coronary artery disease) I25.10 Urinary retention R33.9 Acute anemia D64.9 Diabetes E11.9 Gout M10.9 AICD (automatic cardioverter/defibrillator) present Z95.810
[2022-05-08] MEDS: ATORVASTATIN 40 MG TAB PO SCH (15:11)
[2022-05-08] MEDS: FUROSEMIDE 20 MG TAB PO SCH (15:11)
[2022-05-08] MEDS: IRON SUCROSE 200 MG in 0.9 % SODIUM CHLORIDE 100 ML IV SCH (15:42)
[2022-05-08] MEDS: metFORMIN HCL 500 MG TAB PO SCH (16:37)
[2022-05-08] MEDS ORDERED: HYDROmorphone INJ 0.5 MG/0.5 ML SYR IV STA (20:02)
[2022-05-08] MEDS: GABAPENTIN 300 MG CAP PO SCH (20:17)
[2022-05-08] MEDS: TAMSULOSIN HCL 0.4 MG CAP PO SCH (20:17)
[2022-05-08] MEDS: rOPINIRole HCL 0.25 MG TABLET PO SCH (20:17)
[2022-05-08] MEDS ORDERED: Nursing to Pharmacy Communication SCH (22:45)
[2022-05-09] MEDS: ACETAMINOPHEN 325 MG TAB PO PRN ×2 (05:50→10:02)
[2022-05-09 07:44] LABS: Hematocrit (blood only) 22.8 % (40.1-51.0); Hemoglobin 7.7 g/dl (14.0-18.0); Mean Corpuscular Hemoglobin 29.4 pg (25.0-34.0); Mean Corpuscular Hgb Conc 33.8 g/dL (32.0-36.0); Mean Platelet Volume 10.2 fL (9.4-12.4); Nucleated RBC # (auto) 0.37 K/uL (0-0); Nucleated RBC % (auto) 2.2 %; Platelet Count 308 K/uL (130-400); RDW Coefficient of Variation 15.8 % (11.5-14.5); Red Blood Count 2.62 M/uL (4.63-6.08); White Blood Count 16.83 K/ul (4.8-10.8)
[2022-05-09 08:09] LABS: Basophils # (auto) 0.06 K/uL (0-0.2); Basophils % (auto) 0.4 %; Eosinophils % (auto) 0.6 %; Immature Granulocytes # (auto) 0.97 K/uL (0.00-0.02); Immature Granulocytes % (auto) 5.8 %; Lymphocytes # (auto) 1.76 K/uL (1.2-3.4); Lymphocytes % (auto) 10.5 %; Monocytes # (auto) 1.73 K/uL (0.24-0.82); Monocytes % (auto) 10.3 %; Neutrophils # (auto) 12.21 K/uL (1.4-6.5); Neutrophils % (auto) 72.4 %; Polychromasia 2+
[2022-05-09 08:11] LABS: Partial Thromboplastin Ratio 2.1
[2022-05-09 08:14] LABS: Partial Thromboplastin Time 58.9 Seconds (21.0-31.0)
[2022-05-09 08:26] LABS: BUN Creatinine Ratio 31.6 (10-20); Creatinine Clr Calc Pharmacy 116.7 ml/min; Est GFR (African American) 104.9 ml/min; Est GFR (Non-African American) 90.5 ml/min; Phosphorus 2.8 mg/dl (2.5-4.9)
[2022-05-09] MEDS: INSULIN ASPART PER UNIT SC SCH ×2 (08:56→12:22)
[2022-05-09] MEDS: CLOPIDOGREL BISULFATE 75 MG TAB PO SCH (09:01)
[2022-05-09] MEDS: metFORMIN HCL 500 MG TAB PO SCH (09:01)
[2022-05-09] MEDS: allopurinoL 100 MG TAB PO SCH (09:02)
[2022-05-09] MEDS: METOPROLOL SUCC 50MG EXT REL TAB PO SCH (09:02)
[2022-05-09] MEDS: ASPIRIN 81 MG ECTAB PO SCH (09:02)
[2022-05-09] MEDS: FUROSEMIDE 20 MG TAB PO SCH (09:02)
[2022-05-09] MEDS: IRON SUCROSE 200 MG in 0.9 % SODIUM CHLORIDE 100 ML IV SCH (09:10)
[2022-05-09] MEDS: HEPARIN SODIUM/DEXTROSE 25,000 UNITS/500 ML BAG IV SCH ×3 (11:06→14:15)
[2022-05-09] MEDS ORDERED: PERCOCET 5/325MG HOMEPACK PO PRN (12:13)
[2022-05-09] MEDS ORDERED: oxyCODONE/ACETAMINOPHEN 10-325 TAB PO PRN (12:14)
[2022-05-09] MEDS ORDERED: oxyCODONE/ACETAMINOPHEN 5mg/325mg TAB PO PRN (13:12)
[2022-05-09] MEDS ORDERED: APIXABAN 5 MG TABLET PO SCH (14:15)
--- NOTE | 2022-05-09 14:45 | Discharge Summary ---
Date of Service May 09, 2022 Admission HPI Per Admitting Provider 71 yo male with hsitory of atrial fibrillation and history of chronic subdural hematoma which is the reason as to why he is not on anticoagulation. Patient reports having left posterior thigh pain that began today. Prior to this, he was his normal self. Patient reports that his pain is mainly in his left posterior calf but it is now spreading to his left calf. Patient reports he is able to move his leg. Principal Diagnosis 1. 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 Acute kidney injury 3. Acute anemia due to bleeding extensive ecchymosis 4. atrial fibrillation with rapid ventricular response 5. Left ventricular mural thrombus 6. Urinary retention Discharge Exam The patient appeared stable Vital signs as documented. Lungs are clear to auscultation and appear unlabored diminished at the bases Cardiac exam, Rhythm is regular.. No murmurs, rubs or gallops. Abdominal exam reveals normal bowel sounds, soft non tender, no masses Extremities are chronic venous stasis changes but capillary refill and pulses are intact Neurologic exam is alert and oriented, no focal loss of strength or sensation Skin is with bruising from recent vascular intervention in the groins bilaterally Psychologically is without concerns for anxiety or depression. Constitutional WD/WN, vitals as above well developed, well nourished, + ill appearing, + obese, cooperative and comfortable; no acute distress Cardiovascular RRR, no murmur, no edema Rate/Rhythm: regular rate, regular rhythm, + tachycardic and + irregularly irregular Heart Sounds: normal S1 and normal S2; no murmur Extremities: normal capillary refill (Slightly decreased in both lower extremities) and + pedal edema Gastrointestinal (Abdomen) normal bowel sounds, soft, nontender, no hepatosplenomegaly Inspection/Auscultation: abdomen normal to inspection, + abdomen distended and normal bowel sounds Percussion/Palpation: abdomen soft; abdomen nontender, no guarding and abdomen not rigid Discharge Data Allergies Allergy/AdvReac Type Severity Reaction Status Date / Time No Known Allergies Allergy Verified 04/30/22 15:38 Consultations 04/30/22 13:35 Consult Vascular Surgery Stat 04/30/22 13:46 ED Decision to Admit Stat 04/30/22 16:17 Consult Cardiology Routine 05/01/22 14:38 Consult Awning Craftsperson Routine 05/01/22 14:50 Consult Awning Craftsperson Routine 05/04/22 08:17 Consult Nephrology Routine Procedures Performed Operation Date: 05/01/22 13:05 Actual Procedures p Case Cancelled due to Arythmia(Left) - Aaron Sharp MD Operation Date: 05/02/22 11:00 Actual Procedures p Bilateral Iliac Femoral Embolectomy, Left Common Femoral Artery Endarterectomy with Bovine Patch, Right Common Artery Patch Angioplasty(Left) - Aaron Sharp MD Ordered Studies 04/30/22 10:15 US venous doppler LE LT Stat 04/30/22 13:35 CTA abd aorta runof w con [CT ang AA runof w inc wo ifdon] Stat 04/30/22 15:56 CT head/brain wo con Stat 05/01/22 05:00 CT head/brain wo con Routine 05/02/22 10:00 EV angio LE LT Routine 05/04/22 08:19 CT abd pelvis wo con Stat 05/05/22 23:17 CT pelvis wo con Stat 05/07/22 08:33 CT head/brain wo con Urgent Hospital Course (1) Acute occlusion of aortoiliac artery: The patient presented to the hospital with the left thigh/lower extremity pain, he was found to have apical thrombus of left femoral iliac artery, emboluis from a. fib likely cause of arterial occlusion s/p Bilateral Iliac and Femoral Embolectomy, Left Common Femoral Artery Endarterectomy with Bovine Patch, left Common Artery Patch Angioplasty - performed by Dr Sharp [05/02] Initiated on heparin drip, discussed with upon discharge over the phone recommend to discharge the patient apixaban no need for dual antiplatelet agent Complicated with hematoma, and acute anemia hemoglobin dropped to 7, hematoma is regressing hemoglobin is stable , the patient has a wound VAC on the right side, as per my discussion with the surgical team the wound VAC will come off spontaneously He needs to be follow-up with surgical team in 2 weeks, patient is high risk of bleeding, patient's CBC needs to be checked in 1 weeks (2) Atrial fibrillation with rapid ventricular response: Currently on apixaban, heart rate controlled, status post CABG 2018 which included a left atrial appendage exclusion procedure (3) STACY (acute kidney injury): Significant Cr rise to 2.84, creatinine improved to baseline 0.76 CT A/P r/o obstructive cause 05/04/22 No evidence of hydronephrosis or hydroureter in this patient with acute renal failure. Suspected ATN in setting of hypotension previously with A. fib RVR +/- possible emboli given recent thrombectomy. Already on dual antiplatelets and heparin therefore would not change treatment for possible emboli. Gimenez catheter placed 05/04 to accurately measure urine output patient failed voiding trial postoperatively, required coud catheter to inser, started on Flomax, Gimenez catheter was removed on 05/09, patient needs to be monitored for urine retention (4) Urinary retention: Postoperatively patient developed urine retention, failed first voiding trial, Gimenez catheter (coud catheter) reinserted, -Started on Flomax on05/07, Gimenez catheter was removed upon discharge, patient needs to be monitored for urinary retention (5) Acute anemia: The patient presented to the hospital with a hemoglobin of 14, hemoglobin dropped to 8.9 postoperatively which complicated with hematoma currently hemoglobin is stable 7.5-8, patient received IV iron during this admission, patient discharged on ferric gluconate given have a better profile with constipation (week try to avoid constipation given patient has advanced heart failure), -CBC in 1 week (6) Ischemic cardiomyopathy: LVEF < 15% with chronic HFrEF -History of multiple strokes, heart attack status post CABG currently patient is not in acute HFrEF Continue metoprolol succinate as above (7) LV (left ventricular) mural thrombus: Echocardiogram showed mural thrombosis proceed with anticoagulation as mentioned above (8) Restless leg syndrome: Currently on Requip (9) Subarachnoid hemorrhage: History of subdural hematoma in August 2020. 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 trace subarachnoid hemorrhage, less apparent on repeat scan. Low threshold to repeat if he develops a headache since he is on DAPT and anticogulation. (10) Gout: Continue allopurinol 100mg PO daily (11) CAD (coronary artery disease): Continue aspirin, clopidogrel, metoprolol, atorvastatin (12) Diabetes: Patient has been taking metformin at home, resume metformin on 05/07 (13) AICD (automatic cardioverter/defibrillator) present: ischemic cardiomyopathy (EF 15 to 20%), status post CABG 2018 which included a left atrial appendage exclusion procedure, status post AICD Plan The patient is ready for discharge, discussed with surgical team, surgical to recommend to have a follow-up office visit in 2 weeks, patient is high risk of readmission given her multiple comorbidities, high risk of bleeding given patient dual antiplatelet agent as well as heparin, patient will be downgraded to telemetry bed, discussed with the welfare case worker for possible transfer to rehab, voiding trial in the next couple of days Total Time Total Time Spent Total Time Spent (In Minutes): 45-minute Discharge Plan Discharge Items Patient Disposition: Transfer Group Home Fac Reason For Visit: ARTERIAL THROMBOSIS ILIAC ARTERY Discharge Diagnosis: 1. 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 Acute kidney injury 3. Acute anemia due to bleeding extensive ecchymosis 4. atrial fibrillation with rapid ventricular response 5. Left ventricular mural thrombus 6. Urinary retention Condition on Discharge: Fair Activity: Resume your previous activity Bathing: No limitations Sexual Activity: When tolerated Exercise/Sports: Gradually increase as tolerated Driving/Machine Use: No limitations Non-emergency contact: Primary Care Provider, Surgeon and Insurance Special Agent Call non-emergency contact if: you have any medication questions and your symptoms worsen Follow-up/Referrals: Gavin Renae MD [Physician] - Nehemias Acosta DO [Primary Care Provider] - [facility] [Non-Staff] - Diet: Carb Consistent or DM2 and Heart Healthy Addtl Attending Provider Instructions: The patient is CBC in 1 week, monitor for anemia, The patient is to follow-up with vascular surgery in 2 weeks The patient is to be checked for orthostatic hypotension, patient started recently on Flomax, Gimenez catheter was discontinued upon discharge on 05/09 monitor for urinary retention Pending Studies at Discharge: No Stand-Alone Forms: My SDI Skilled Items Patient informed of condition?: Yes DNR: No Discharge Level of Care: Skilled Communicable Disease: No Discharge Prognosis: Improving Lines: None Urinary Catheter: No Medications and DC Order Prescriptions: New loperamide 2 mg Capsule 2 mg PO Q4H PRN (Reason: loose stool) Qty: 20 0RF oxycodone-acetaminophen [Percocet] 5-325 mg Tablet 1 tab PO Q4H PRN (Reason: pain) Qty: 20 0RF oxycodone-acetaminophen 10-325 mg Tablet 1 tab PO Q4H PRN (Reason: pain) Qty: 20 0RF tamsulosin 0.4 mg Capsule 0.4 mg PO HS Qty: 20 0RF ropinirole 0.25 mg Tablet 0.5 mg PO TODAY@2000 Qty: 14 0RF gabapentin 300 mg Capsule 300 mg PO PM Qty: 20 0RF apixaban 5 mg tablet 5 mg PO Q12H Qty: 60 0RF ferrous gluconate 324 mg (37.5 mg iron) tablet 324 mg PO BID Qty: 90 0RF Continued furosemide 20 mg tablet 10 mg PO DAILY PRN (Reason: edema) Qty: 90 3RF metformin 500 mg tablet 500 mg PO BID Qty: 180 3RF allopurinol 100 mg tablet 100 mg PO DAILY metoprolol succinate 50 mg tablet extended release 24 hr 100 mg PO QAM 30 Days Qty: 60 2RF Rx Instructions: will take with 25 mg metoprolol succinate 25 mg tablet extended release 24 hr 25 mg PO DAILY Qty: 30 2RF Rx Instructions: take with the 50 mg atorvastatin 80 mg tablet 80 mg PO QPM Rx Instructions: TAKES IN AFTERNOON spironolactone 25 mg tablet 25 mg PO QPM escitalopram oxalate [Lexapro] 10 mg tablet 10 mg PO HS ropinirole 0.25 mg tablet 0.5 mg PO HS Rx Instructions: TAKES 1-2 HOURS PRIOR TO HS. Discontinued clopidogrel 75 mg tablet 75 mg PO QAM aspirin 81 mg Tablet,Delayed Release (Dr/Ec) 81 mg PO DAILY Discharge Orders: Discharge Order (Routine); Ordered 05/09/22 Ordered By: Ren Fermin Admission Data Admit Date/Time: 04/30/22 14:35 Attending Provider: Ren Fermin Admit Provider: Michele Javier Primary Care Provider: Nehemias Acosta Other Providers: Alirio Pendleton ; Simone Robin ; Janelle Draper ; Weston Nunes ; Olesya Watters ; Mark Muniz ; Conrad Camacho ; Igor Quinonesky,[place] ; [facility] ; Aaron Sharp ; Michele Javier ; John German ; Gavin Renae ; Migue Sevilla ; Reuben Frye ; Tomas Hopper ; Andreas Hawkins Jr ; Rolan Velarde ; Amara Barriga ; Evita Ross ; Enzo Lundberg ; Monico Thomas ; Chriss Suarez ; Radha Casper ; Florinda Ingram ; Hardy Mandujano ; Darryl Isbell ; Porfirio Estrada ; Reuben Yanez V. ; Suresh Cordero Other Interventions: Discharge Summary Assessment (RN) Last Done: 05/09/22 14:34 Coding Level of Care Code D/C DAY MANAGEMENT >30 MINS Diagnoses Acute occlusion of aortoiliac artery I74.09 Atrial fibrillation with rapid ventricular response I48.91 STACY (acute kidney injury) N17.9 Urinary retention R33.9 Acute anemia D64.9 Ischemic cardiomyopathy I25.5 LV (left ventricular) mural thrombus I51.3 Restless leg syndrome G25.81 Subarachnoid hemorrhage I60.9 Gout M10.9 CAD (coronary artery disease) I25.10 Diabetes E11.9 AICD (automatic cardioverter/defibrillator) present Z95.810
[2022-05-09] MEDS: ATORVASTATIN 40 MG TAB PO SCH (15:15)
== END 2022-05-09 16:20 | DRG 270 ==
LOC: ED 09:57 → 2E 14:35 → SUATTDRO 14:35 → 2E 18:02 → 1E 05-01 14:35 → 2N 05-08 16:42

== ENCOUNTER 2022-05-13 02:45 | Inpatient (IN) ==
[2022-05-13] MEDS ORDERED: dilTIAZem HCl 5 MG/ML 5 ML VIAL IV STA (03:02)
--- NOTE | 2022-05-13 03:11 | Emergency Department Note ---
History of Present Illness General Chief complaint: Arrhythmia/Palpitations Stated complaint: Weakness, Tachycardia Time Seen by Provider: 05/13/22 02:57 History of Present Illness 71-year-old male presents emergency department reportedly was at [facility] and his roommate stated that the patient was breathing erratically. Patient was found to be in rapid A. fib by the staff at [facility] and EMS was called. Patient denies current chest pain he states he may have had an AICD that fired tonight. Patient is currently on Eliquis and has a history of A. fib. Patient states general malaise. Patient of note had a recent embolization of his left lower extremity due to arterial occlusion. No vomiting or abdominal pain. Patient denies fever or cough. There are no other mitigating or alleviating factors Home Medications Medication Instructions Recorded Confirmed Type furosemide 20 mg tablet 10 mg PO DAILY PRN edema #90 tabs 12/13/21 04/30/22 Rx metformin 500 mg tablet 500 mg PO BID #180 tabs 12/13/21 04/30/22 Rx atorvastatin 80 mg tablet 80 mg PO QPM 01/01/22 04/30/22 History escitalopram oxalate 10 mg tablet 10 mg PO HS 01/01/22 04/30/22 History (Lexapro) spironolactone 25 mg tablet 25 mg PO QPM 01/01/22 04/30/22 History allopurinol 100 mg tablet 100 mg PO DAILY 03/21/22 04/30/22 History metoprolol succinate 25 mg 25 mg PO DAILY #30 tabs 03/21/22 04/30/22 Rx tablet,extended release 24 hr metoprolol succinate 50 mg 100 mg PO QAM 30 days #60 tabs 03/21/22 04/30/22 Rx tablet,extended release 24 hr ropinirole 0.25 mg tablet 0.5 mg PO HS 04/30/22 04/30/22 History apixaban 5 mg tablet 5 mg PO Q12H #60 tabs 05/09/22 Rx ferrous gluconate 324 mg (37.5 mg 324 mg PO BID #90 tabs 05/09/22 Rx iron) tablet gabapentin 300 mg capsule 300 mg PO PM #20 caps 05/09/22 Rx loperamide 2 mg capsule 2 mg PO Q4H PRN loose stool #20 05/09/22 Rx caps oxycodone-acetaminophen 10 mg-325 1 tab PO Q4H PRN pain #20 tabs 05/09/22 Rx mg tablet oxycodone-acetaminophen 5 mg-325 1 tab PO Q4H PRN pain #20 tabs 05/09/22 Rx mg tablet (Percocet) ropinirole 0.25 mg tablet 0.5 mg PO TODAY@2000 #14 tabs 05/09/22 Rx tamsulosin 0.4 mg capsule 0.4 mg PO HS #20 caps 05/09/22 Rx Allergies Allergy/AdvReac Type Severity Reaction Status Date / Time No Known Allergies Allergy Verified 04/30/22 15:38 Past Med/Surg History Medical History Acute CVA (cerebrovascular accident) Atrial fibrillation with rapid ventricular response Elevated troponin Implantable cardioverter-defibrillator (ICD) discharge Surgical History H/O heart bypass surgery Family History Brother Diabetes Mother Hypertension Father Stroke Denies family history of Ovarian cancer Prostate cancer Myocardial infarction Breast cancer Colorectal cancer Social History Smoking Status: Never smoker Second Hand Exposure: No; Hx Alcohol Use: No Hx Substance Use: No Preferred Language: Spanish 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: Effective Utilization Management Um Nurse Required: No Beliefs That Will Affect Care: None Current Living Situation: Family Current Living Situation Comment: lives with son current occupational status: retired Feels Safe at Home: Yes Physical Activity Frequency: 1-2 Times per Week Seatbelt Use: always Assistive Devices: Walker Physical Exam Vital Signs Vital Signs - 24 hr 05/13/22 03:04 05/13/22 02:57 05/13/22 02:57 Temperature 37.2 C Temperature Source Oral Pulse Rate 148 H Pulse Rate from SpO2 Sensor Pulse Rhythm Irregular Respiratory Rate 18 Respiratory Effort / Characteristics Non-Labored Respiratory Depth Normal Blood Pressure 141/104 H Blood Pressure Mean 116 Pulse Oximetry 96 96 Oxygen Delivery Method Room Air Room Air Room Air Sepsis Recent Fever Within 48 Hours No Sepsis New/Unexplained Change in Mental Status No Sepsis Action Taken by Nursing No Action Required 05/13/22 02:57 05/13/22 02:51 05/13/22 02:52 Temperature Temperature Source Pulse Rate 131 H Pulse Rate from SpO2 Sensor 125 H Pulse Rhythm Respiratory Rate 21 Respiratory Effort / Characteristics Non-Labored Respiratory Depth Normal Blood Pressure 141/104 H Blood Pressure Mean 116 Pulse Oximetry 97 Oxygen Delivery Method Sepsis Recent Fever Within 48 Hours Sepsis New/Unexplained Change in Mental Status Sepsis Action Taken by Nursing 05/13/22 03:00 05/13/22 03:18 05/13/22 03:18 Temperature Temperature Source Pulse Rate 119 H 104 H Pulse Rate from SpO2 Sensor 107 H Pulse Rhythm Respiratory Rate 24 21 Respiratory Effort / Characteristics Respiratory Depth Blood Pressure Blood Pressure Mean 113 Pulse Oximetry 97 Oxygen Delivery Method Sepsis Recent Fever Within 48 Hours Sepsis New/Unexplained Change in Mental Status Sepsis Action Taken by Nursing 05/13/22 03:19 05/13/22 03:19 05/13/22 03:30 Temperature Temperature Source Pulse Rate 100 H 110 H Pulse Rate from SpO2 Sensor 98 H Pulse Rhythm Respiratory Rate 22 17 Respiratory Effort / Characteristics Respiratory Depth Blood Pressure 112/59 L Blood Pressure Mean 76 Pulse Oximetry 94 Oxygen Delivery Method Sepsis Recent Fever Within 48 Hours Sepsis New/Unexplained Change in Mental Status Sepsis Action Taken by Nursing 05/13/22 03:31 05/13/22 03:31 Temperature Temperature Source Pulse Rate 107 H Pulse Rate from SpO2 Sensor 100 H Pulse Rhythm Respiratory Rate 16 Respiratory Effort / Characteristics Respiratory Depth Blood Pressure 90/64 L Blood Pressure Mean 72 Pulse Oximetry 96 Oxygen Delivery Method Sepsis Recent Fever Within 48 Hours Sepsis New/Unexplained Change in Mental Status Sepsis Action Taken by Nursing GENERAL: Patient is awake alert in no acute distress patient is resting comfortably and showing no signs of anxiety EYES: The conjunctivae are clear. The pupils are round and reactive. EARS, NOSE, MOUTH AND THROAT: The nose is without any evidence of any deformity. Mucous membranes are moist. Tongue is midline. NECK: The neck is nontender and supple. RESPIRATORY: Normal respiratory effort is noted there is no evidence of wheezing rhonchi or rales CARDIOVASCULAR: Irregularly irregular and tachycardic GASTROINTESTINAL: The abdomen is soft. Abdomen is nontender. PELVIS: The Pelvis is stable. No tenderness to palpation is noted. BACK: No midline tenderness or or step-off noted range of motion in flexion extension as well as rotation no signs of muscle spasm noted MUSCULOSKELETAL/EXTREMITIES: There is no evidence of gross deformity full range of motion is noted in the hips and shoulders. SKIN: There is no obvious evidence of any rash. There is ecchymosis to the left flank all the way down to the left foot. There is a bandage in the left groin the bilateral lower extremities are warm NEUROLOGIC: Patient is awake alert and oriented x3 strength is symmetric Course Reevaluation(s) Reevaluation #1: Patient was started on IV Cardizem. Patient's heart rate decreased to less than 100. Patient denies any other complaints except for chronic leg pain. Patient is status postembolization of the left lower extremity in the past 2 weeks. Patient was also complaining of chest pain earlier. Time: 04:18 Consultations [facility]ation #1: [facility]: [facility]:18 Administered Medications Discontinued Medications Hydrocodone Bitart/Acetaminophen (Hydrocodone/Acetaminophen 10/325 Tab) 1 tab PO NOW STA Stop: 05/13/22 04:07 Last Admin: 05/13/22 04:35 Dose: 1 tab Documented By: CE Diltiazem HCl (Diltiazem Hcl 5 Mg/Ml 5 Ml Vial) 20 mg IV NOW STA Stop: 05/13/22 03:03 Last Admin: 05/13/22 03:06 Dose: 20 mg Documented By: CE Co-signed By: AGUILAR Critical Care Time Critical Care Time: Yes Total Critical Care Time: 35 I have personally spent greater than 35 minutes of critical care time in the direct management of this patient. This includes bedside care, interpretation of diagnostic studies, and testing, discussion with consultants, patient, and family members, and other required patient management activities. These minutes are in excess of all separately billable procedures. Medical Decision Making Medical Records Attestation: I reviewed the patient's medical records. Home Medications Current Medication List: was personally reviewed by me Laboratory Data Attestation: I reviewed the patient's lab results. Result diagrams: 05/13/22 02:57 05/13/22 02:57 Lab Results 05/13/22 05/13/22 05/13/22 Range/Units 02:57 02:57 02:57 WBC 22.56 H (4.8-10.8) K/ul RBC 2.68 L (4.63-6.08) M/uL Hgb 8.1 L (14.0-18.0) g/dl Hct 24.0 L (40.1-51.0) % MCV 89.6 (80.0-100.0) fL MCH 30.2 (25.0-34.0) pg MCHC 33.8 (32.0-36.0) g/dL RDW Std Deviation 53.6 H (36.4-46.3) fL RDW Coeff of [place] 18.0 H (11.5-14.5) % Plt Count 374 (130-400) K/uL MPV 9.9 (9.4-12.4) fL Immature Gran % (Auto) 2.1 % Neut % (Auto) 89.4 % Lymph % (Auto) 4.4 % Meigs % (Auto) 3.5 % Eos % (Auto) 0.3 % Baso % (Auto) 0.3 % Neut # (Auto) 20.18 H (1.4-6.5) K/uL Lymph # (Auto) 0.99 L (1.2-3.4) K/uL Meigs # (Auto) 0.79 (0.24-0.82) K/uL Eos # (Auto) 0.06 (0-0.50) K/uL Baso # (Auto) 0.06 (0-0.2) K/uL Immature Gran # (Auto) 0.48 H (0.00-0.02) K/uL Absolute Nucleated RBC 0.07 H (0-0) K/uL Nucleated RBC % (auto) 0.3 % Polychromasia 1+ PT 15.1 H (9.0-12.0) Seconds INR 1.4 H (0.9-1.1) APTT 35.4 H (21.0-31.0) Seconds PTT Ratio 1.3 Sodium 134 L (136-145) mmol/L Potassium 4.2 (3.5-5.1) mmol/L Chloride 100 (98-107) mmol/L Carbon Dioxide 26 (21-32) mmol/L Anion Gap 8 (3-11) BUN 22 (6-23) mg/dl Creatinine 0.79 (0.6-1.4) mg/dl Est Cr Clr Drug Dosing Not Reportable Est GFR ( Amer) 103.2 ml/min Est GFR (Non-Af Amer) 89.1 ml/min BUN/Creatinine Ratio 27.8 H (10-20) Glucose 130 H (70-99(Fasting)) mg/dl Lactate (0.4-2.0) mmol/L Calcium 8.4 L (8.5-10.1) mg/dl Total Bilirubin 2.5 H (0.2-1.0) mg/dl AST 50 H (13-39) U/L ALT 30 (7-52) U/L Alkaline Phosphatase 111 H (34-104) U/L Troponin I High Sens 28.8 H (0-20) pg/ml Total Protein 6.5 (6.0-8.3) gm/dl Albumin 3.0 L (3.4-5.0) gm/dl Globulin 3.5 (2.5-4.0) gm/dl Albumin/Globulin Ratio 0.9 (0.9-2) Lipase 4 L (11-82) U/L SARS-CoV-2 (PCR) (Negative) Influenza Type A (PCR) (Neg) Influenza Type B (PCR) (Neg) RSV (RT-PCR) (Neg) 05/13/22 05/13/22 Range/Units 03:58 04:00 WBC (4.8-10.8) K/ul RBC (4.63-6.08) M/uL Hgb (14.0-18.0) g/dl Hct (40.1-51.0) % MCV (80.0-100.0) fL MCH (25.0-34.0) pg MCHC (32.0-36.0) g/dL RDW Std Deviation (36.4-46.3) fL RDW Coeff of [place] (11.5-14.5) % Plt Count (130-400) K/uL MPV (9.4-12.4) fL Immature Gran % (Auto) % Neut % (Auto) % Lymph % (Auto) % Meigs % (Auto) % Eos % (Auto) % Baso % (Auto) % Neut # (Auto) (1.4-6.5) K/uL Lymph # (Auto) (1.2-3.4) K/uL Meigs # (Auto) (0.24-0.82) K/uL Eos # (Auto) (0-0.50) K/uL Baso # (Auto) (0-0.2) K/uL Immature Gran # (Auto) (0.00-0.02) K/uL Absolute Nucleated RBC (0-0) K/uL Nucleated RBC % (auto) % Polychromasia PT (9.0-12.0) Seconds INR (0.9-1.1) APTT (21.0-31.0) Seconds PTT Ratio Sodium (136-145) mmol/L Potassium (3.5-5.1) mmol/L Chloride (98-107) mmol/L Carbon Dioxide (21-32) mmol/L Anion Gap (3-11) BUN (6-23) mg/dl Creatinine (0.6-1.4) mg/dl Est Cr Clr Drug Dosing Est GFR ( Amer) ml/min Est GFR (Non-Af Amer) ml/min BUN/Creatinine Ratio (10-20) Glucose (70-99(Fasting)) mg/dl Lactate 1.6 (0.4-2.0) mmol/L Calcium (8.5-10.1) mg/dl Total Bilirubin (0.2-1.0) mg/dl AST (13-39) U/L ALT (7-52) U/L Alkaline Phosphatase (34-104) U/L Troponin I High Sens (0-20) pg/ml Total Protein (6.0-8.3) gm/dl Albumin (3.4-5.0) gm/dl Globulin (2.5-4.0) gm/dl Albumin/Globulin Ratio (0.9-2) Lipase (11-82) U/L SARS-CoV-2 (PCR) NEGATIVE (Negative) Influenza Type A (PCR) Negative (Neg) Influenza Type B (PCR) Negative (Neg) RSV (RT-PCR) Negative (Neg) Imaging Data Attestation: I personally reviewed and interpreted this imaging study as follows: My Impression: Chest x-ray interpreted by me cardiomegaly rotated pacemaker present no obvious effusion or infiltrate ECG Data Attestation: I personally reviewed and interpreted this ECG as follows: Additional Comments: EKG interpreted by me rapid atrial fibrillation rate of 138 left axis deviation left ventricular hypertrophy poor R wave progression the precordium nonspecific ST-T change no obvious ST segment elevation or depression MDM Narrative Medical decision making differential diagnosis includes rapid atrial fibrillation CHF dysrhythmia electrolyte abnormality acute coronary syndrome. Plan is to check labs EKG, chest x-ray, treat atrial fibrillation Patient was evaluated for rapid atrial fibrillation, patient is on Eliquis, patient was given IV Cardizem, patient has an elevated white blood cell count the leukocytosis is currently of unknown etiology. This case was discussed with the hospitalist for admission. The concern is rapid A. fib with an elevated troponin as well as leukocytosis. Patient is not in septic shock at the time of admission Impression & Plan Atrial fibrillation with rapid ventricular response, Leukocytosis Discharge Plan Visit Data Chief Complaint: Arrhythmia/Palpitations Stated Complaint: Weakness, Tachycardia ED Provider: Shane Chamberlain Discharge Problem: Atrial fibrillation with rapid ventricular response, Leukocytosis Patient Disposition: Being Evaluated by Hospitalist Forms Stand Alone Forms: My [facility] Prescriptions Prescriptions: No Action furosemide 20 mg tablet 10 mg PO DAILY PRN (Reason: edema) Qty: 90 3RF metformin 500 mg tablet 500 mg PO BID Qty: 180 3RF allopurinol 100 mg tablet 100 mg PO DAILY metoprolol succinate 50 mg tablet extended release 24 hr 100 mg PO QAM 30 Days Qty: 60 2RF Rx Instructions: will take with 25 mg metoprolol succinate 25 mg tablet extended release 24 hr 25 mg PO DAILY Qty: 30 2RF Rx Instructions: take with the 50 mg atorvastatin 80 mg tablet 80 mg PO QPM Rx Instructions: TAKES IN AFTERNOON spironolactone 25 mg tablet 25 mg PO QPM escitalopram oxalate [Lexapro] 10 mg tablet 10 mg PO HS ropinirole 0.25 mg tablet 0.5 mg PO HS Rx Instructions: TAKES 1-2 HOURS PRIOR TO HS. loperamide 2 mg Capsule 2 mg PO Q4H PRN (Reason: loose stool) Qty: 20 0RF oxycodone-acetaminophen [Percocet] 5-325 mg Tablet 1 tab PO Q4H PRN (Reason: pain) Qty: 20 0RF oxycodone-acetaminophen 10-325 mg Tablet 1 tab PO Q4H PRN (Reason: pain) Qty: 20 0RF tamsulosin 0.4 mg Capsule 0.4 mg PO HS Qty: 20 0RF ropinirole 0.25 mg Tablet 0.5 mg PO TODAY@2000 Qty: 14 0RF gabapentin 300 mg Capsule 300 mg PO PM Qty: 20 0RF apixaban 5 mg tablet 5 mg PO Q12H Qty: 60 0RF ferrous gluconate 324 mg (37.5 mg iron) tablet 324 mg PO BID Qty: 90 0RF Referrals Referrals: Nehemias Acosta DO [Primary Care Provider] -
[2022-05-13 03:14] LABS: Hemoglobin 8.1 g/dl (14.0-18.0); Mean Corpuscular Hemoglobin 30.2 pg (25.0-34.0); Mean Corpuscular Hgb Conc 33.8 g/dL (32.0-36.0); Mean Corpuscular Volume 89.6 fL (80.0-100.0); Mean Platelet Volume 9.9 fL (9.4-12.4); Nucleated RBC # (auto) 0.07 K/uL (0-0); Nucleated RBC % (auto) 0.3 %; Platelet Count 374 K/uL (130-400); RDW Standard Deviation 53.6 fL (36.4-46.3); Red Blood Count 2.68 M/uL (4.63-6.08); White Blood Count 22.56 K/ul (4.8-10.8)
[2022-05-13 03:30] LABS: INR 1.4 (0.9-1.1); Partial Thromboplastin Ratio 1.3; Partial Thromboplastin Time 35.4 Seconds (21.0-31.0); Prothrombin Time 15.1 Seconds (9.0-12.0)
[2022-05-13 03:45] LABS: Troponin I High Sensitivity 28.8 pg/ml (0-20)
[2022-05-13 03:46] LABS: Alanine Aminotransferase 30 U/L (7-52); Albumin Globulin Ratio 0.9 (0.9-2); Alkaline Phosphatase 111 U/L (34-104); Anion Gap 8 (3-11); Aspartate Aminotransferase 50 U/L (13-39); BUN Creatinine Ratio 27.8 (10-20); Basophils # (auto) 0.06 K/uL (0-0.2); Basophils % (auto) 0.3 %; Bilirubin,Total 2.5 mg/dl (0.2-1.0); Blood Urea Nitrogen 22 mg/dl (6-23); Calcium 8.4 mg/dl (8.5-10.1); Carbon Dioxide 26 mmol/L (21-32); Chloride 100 mmol/L (98-107); Eosinophils # (auto) 0.06 K/uL (0-0.50); Eosinophils % (auto) 0.3 %; Est GFR (African American) 103.2 ml/min; Est GFR (Non-African American) 89.1 ml/min; Globulin 3.5 gm/dl (2.5-4.0); Glucose 130 mg/dl (70-99(Fasting)); Immature Granulocytes # (auto) 0.48 K/uL (0.00-0.02); Immature Granulocytes % (auto) 2.1 %; Lipase 4 U/L (11-82); Lymphocytes # (auto) 0.99 K/uL (1.2-3.4); Lymphocytes % (auto) 4.4 %; Monocytes # (auto) 0.79 K/uL (0.24-0.82); Monocytes % (auto) 3.5 %; Neutrophils # (auto) 20.18 K/uL (1.4-6.5); Neutrophils % (auto) 89.4 %; Polychromasia 1+; Potassium 4.2 mmol/L (3.5-5.1); Sodium 134 mmol/L (136-145); Total Protein 6.5 gm/dl (6.0-8.3)
[2022-05-13] MEDS ORDERED: HYDROcodone/ACETAMINOPHEN 10/325 TAB PO STA (04:06)
--- NOTE | 2022-05-13 04:27 | History & Physical Report ---
Date of Service May 13, 2022 Assessment & Plan (1) Ischemic cardiomyopathy: Plan: EF < 15% on echo on 05/02. - ICD fired today per patient, precipitating his return to the ER. - Cardiology consulted - Otherwise continue homes meds (2) Atrial fibrillation with rapid ventricular response: Plan: Episodes last admission as well. On discharge, appears digoxin was not continued. Notes are sparse, but I don't see it stopped last admission, so possibly a medication error on discharge. - Continue metoprolol XL 150 mg PO daily (dose seems to have been increased slightly at [facility]) - Restart digoxin - Apixaban as below (3) Leukocytosis: Plan: WBC up to 22 from 17 on discharge. Possible LLE cellulitis. CXR from ER looks fairly clear within limitations of portable film. No cough/shortness of breath. UA ordered by ER doctor - pending. - Start vancomycin for possible LLE cellulitis. Marked with marker in ER. - Defer imaging of groin for now. Bruising appears stable per patient and daughter. Surgical wounds without purulence or drainage. (4) Acute occlusion of aortoiliac artery: Plan: S/p Bilateral Iliac and Femoral Embolectomy, Left Common Femoral Artery Endarterectomy with Bovine Patch, Right Common Artery Patch Angioplasty(Left) - Aaron Sharp MD on 05/02. - Wound vacs removed by [facility] on 05/12. Bruising appears stable per patient and daughter - Continue apixaban - No vascular coverage until after New Years. If concern for surgical site, will need to transfer to [place] (5) LV (left ventricular) mural thrombus: Plan: Noted on echo on 05/02. - Apixaban as above (6) CAD (coronary artery disease): Plan: S/p CABG. - See above (7) Hx of subdural hematoma: Plan: - Continue anticoagulation as above - Monitor for symptoms FULL CODE - Per patient in the ER with daughter in agreement. History of Present Illness Primary Care Provider: Nehemias Acosta, DO 71yo M w/ hx of PAD and afib who presents with afib with RVR and leukocytosis. Had prolonged hospital course earlier this month due acute thrombotic event requiring Bilateral Iliac and Femoral Embolectomy, Left Common Femoral Artery Endarterectomy with Bovine Patch, Right Common Artery Patch Angioplasty(Left) with Aaron Sharp on 05/02/2022. Was discharged to [facility] after prolonged course including hypotension that was thought to be due to tachycardia from his afib. Per his room mate, the patient had some sort of breathing issue overnight and was found to be in afib with RVR. He was sent here, where he responded to diltiazem 20 mg IV x 1 push. Allergies Allergy/AdvReac Type Severity Reaction Status Date / Time No Known Allergies Allergy Verified 04/30/22 15:38 Home Medications Medication Instructions Recorded Confirmed Type furosemide 20 mg tablet 10 mg PO DAILY PRN edema #90 tabs 12/13/21 04/30/22 Rx metformin 500 mg tablet 500 mg PO BID #180 tabs 12/13/21 04/30/22 Rx atorvastatin 80 mg tablet 80 mg PO QPM 01/01/22 04/30/22 History escitalopram oxalate 10 mg tablet 10 mg PO HS 01/01/22 04/30/22 History (Lexapro) spironolactone 25 mg tablet 25 mg PO QPM 01/01/22 04/30/22 History allopurinol 100 mg tablet 100 mg PO DAILY 03/21/22 04/30/22 History metoprolol succinate 25 mg 25 mg PO DAILY #30 tabs 03/21/22 04/30/22 Rx tablet,extended release 24 hr metoprolol succinate 50 mg 100 mg PO QAM 30 days #60 tabs 03/21/22 04/30/22 Rx tablet,extended release 24 hr ropinirole 0.25 mg tablet 0.5 mg PO HS 04/30/22 04/30/22 History apixaban 5 mg tablet 5 mg PO Q12H #60 tabs 05/09/22 Rx ferrous gluconate 324 mg (37.5 mg 324 mg PO BID #90 tabs 05/09/22 Rx iron) tablet gabapentin 300 mg capsule 300 mg PO PM #20 caps 05/09/22 Rx loperamide 2 mg capsule 2 mg PO Q4H PRN loose stool #20 05/09/22 Rx caps oxycodone-acetaminophen 10 mg-325 1 tab PO Q4H PRN pain #20 tabs 05/09/22 Rx mg tablet oxycodone-acetaminophen 5 mg-325 1 tab PO Q4H PRN pain #20 tabs 05/09/22 Rx mg tablet (Percocet) ropinirole 0.25 mg tablet 0.5 mg PO TODAY@1999 #14 tabs 05/09/22 Rx tamsulosin 0.4 mg capsule 0.4 mg PO HS #20 caps 05/09/22 Rx Past Med/Surg History Medical History Acute CVA (cerebrovascular accident) Atrial fibrillation with rapid ventricular response Elevated troponin Implantable cardioverter-defibrillator (ICD) discharge Surgical History H/O heart bypass surgery Family History Brother Diabetes Mother Hypertension Father Stroke Denies family history of Ovarian cancer Prostate cancer Myocardial infarction Breast cancer Colorectal cancer Social History Smoking Status: Never smoker Second Hand Exposure: No; Hx Alcohol Use: No Hx Substance Use: No Preferred Language: Citizen Of [place] 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: Effective Belt [employer] Shop Supervisor Required: No Beliefs That Will Affect Care: None Current Living Situation: Family Current Living Situation Comment: lives with son current occupational status: retired Feels Safe at Home: Yes Physical Activity Frequency: 1-2 Times per Week Seatbelt Use: always Assistive Devices: Walker Review of Systems Review of Systems: All systems reviewed & are unremarkable except as noted in HPI & below Physical Exam Constitutional: WD/WN, vitals as above Eyes: EOM intact bilaterally; no conjunctival abnormality ENMT: external ear and nose normal, oropharynx normal Neck: trachea midline, no thyromegaly normal visual inspection Respiratory: normal respiratory effort, lungs clear to auscultation no respiratory distress Cardiovascular: Rate/Rhythm: + tachycardic and + irregularly irregular Extremities: no edema Gastrointestinal (Abdomen): Inspection/Auscultation: abdomen normal to inspection; abdomen not distended Musculoskeletal: no cyanosis or clubbing, extremities motor strength 5/5 Skin: no rashes, warm and dry Neurologic: moves all extremities and awake Psychiatric: Orientation: alert, oriented to person and cooperative Results & Data Results & Data ([facility]) Vital Signs (Past 12 Hours) Vital Signs Temp Pulse Resp BP Pulse Ox O2 Del Method 05/13/22 03:31 107 H 16 96 05/13/22 03:31 90/64 L 05/13/22 03:30 110 H 17 05/13/22 03:19 112/59 L 05/13/22 03:19 100 H 22 94 05/13/22 03:18 104 H 21 97 05/13/22 03:00 119 H 24 05/13/22 02:52 131 H 21 97 05/13/22 02:51 141/104 H 05/13/22 02:57 Room Air 05/13/22 02:57 37.2 C 148 H 18 141/104 H 96 Room Air 05/13/22 03:04 96 Room Air PG Care Time/CCT Total # of Minutes Spent Total Time Spent with Patient: Total time spent is greater than 50% in coordination of care (as documented) at patient's floor/unit and/or counseling patient: Coding Level of Care Code 44920 Initial Inpt Care Lvl 3 Diagnoses Ischemic cardiomyopathy I25.5 Atrial fibrillation with rapid ventricular response I48.91 Leukocytosis D72.829 Acute occlusion of aortoiliac artery I74.09 LV (left ventricular) mural thrombus I51.3 CAD (coronary artery disease) I25.10 Hx of subdural hematoma Z86.79
[2022-05-13 04:50] LABS: Influenza A virus by PCR Negative (Neg); Influenza B virus by PCR Negative (Neg); RSV by PCR Negative (Neg); SARS CoV2 RNA(COVID-19) Ceph NEGATIVE (Negative)
[2022-05-13 04:51] LABS: Appearance Urine Turbid (Clear); Bacteria Urine Automated 4+ (Negative); Blood Urine 3+ (Negative); Color Urine Orange; Epithelial Cell Urine Auto >30 /lpf (0-5); Glucose Urine UA Negative (Negative); Ketones Urine Trace (Negative); Leukocyte Esterase Urine 3+ (Negative); Nitrite Urine Positive (Negative); Protein Urine 1+ (Negative); RBC Urine Automated >30 /hpf (0-4); Specific Gravity Urine 1.022 (1.000-1.030); Urobilinogen Urine Positive (Negative); WBC Urine Automated >30 /hpf (0-5)
[2022-05-13 04:53] LABS: Bilirubin Urine 1+ (Negative)
[2022-05-13 05:08] LABS: Cast Urine Automated 0 /lpf (0-5)
--- NOTE | 2022-05-13 07:09 | XRay Report ---
XR chest 1V portable CLINICAL HISTORY: Chest pain, nonspecific COMPARISON STUDY: Chest radiograph April 30, 2022. FINDINGS: Left subclavian pacer/AICD, median sternotomy wires, mediastinal surgical clips and left at rial occluder device are in place. Cardiomegaly is unchanged. There is pulmonary vascular congestion, similar to prior exam. There is no evidence for pulmonary edema. There is no consolidation to sugges t pneumonia. IMPRESSION: No significant change in appearance of the chest. Cardiomegaly with pulmonary vascular co ngestion. ACT 112: Negative or not required by law. Electronically signed by: Dami Gongora M.D. 05/13/2022 7:08 AM
[2022-05-13] MEDS ORDERED: VANCOMYCIN CONSULT ACTIVE PRN (07:36)
[2022-05-13] MEDS ORDERED: CARBOHYDRATES FOR HYPOGLYCEMIA PO PRN (07:36)
[2022-05-13] MEDS ORDERED: DEXTROSE 50% 50 ML SYRINGE IV PRN (07:36)
[2022-05-13] MEDS ORDERED: GLUCOSE 40% GEL 15 GM TUBE PO PRN (07:36)
[2022-05-13] MEDS ORDERED: DIGOXIN 0.125 MG TAB PO ONE (07:36)
[2022-05-13] MEDS ORDERED: GLUCAGON FOR INJ 1 MG VIAL SQ PRN (07:36)
[2022-05-13] MEDS ORDERED: ONDANSETRON INJ 2 MG/ML 2 ML VIAL IV PRN (07:36)
[2022-05-13] MEDS ORDERED: GLUCOSE 10 TAB/TUBE PO PRN (07:36)
[2022-05-13] MEDS ORDERED: VANCOMYCIN HCL 2,250 MG in SODIUM CHLORIDE 0.9% 500 ML IV ONE (08:00)
[2022-05-13] MEDS: METOPROLOL SUCC 50MG EXT REL TAB PO SCH ×2 (08:49→08:58)
[2022-05-13] MEDS: allopurinoL 100 MG TAB PO SCH (08:49)
[2022-05-13] MEDS: APIXABAN 5 MG TABLET PO SCH ×2 (08:49→20:35)
[2022-05-13] MEDS: ACETAMINOPHEN 325 MG TAB PO PRN (09:34)
[2022-05-13] MEDS: INSULIN ASPART PER UNIT SC SCH ×4 (09:35→20:36)
[2022-05-13] MEDS: Patient's HEIGHT &/or WEIGHT Needed SCH ×3 (10:44→11:00)
--- NOTE | 2022-05-13 10:48 | Progress Note ---
Date of Service May 13, 2022 Assessment & Plan (1) Ischemic cardiomyopathy: Plan: * Patient with an EF of less than 15% on recent echocardiogram. Patient with new firing of ICD. He had a similar episode while being induced for the initial procedure to correct his acute occlusion of the aortoiliac artery. Digoxin has been reinstituted. Rate control is been appropriate currently. * Will check a.m. dig level. Continue to trend * Continue his metoprolol dosing. * Continue apixaban. * Appreciate cardiology consultation. (2) Atrial fibrillation with rapid ventricular response: Plan: * Continue medications as above. (3) Leukocytosis: Plan: * In the setting of possible LEFT lower extremity cellulitis. Initially placed on vancomycin. * Given the new findings of UTI, will add Rocephin in addition to the vancomycin. Urine and blood cultures pending. (4) Cellulitis of lower extremity: Plan: * Will broaden antibiotic coverage to include Rocephin in the setting of newfound UTI. (5) UTI (urinary tract infection) due to urinary indwelling Gimenez catheter: Plan: * Patient with Gimenez catheter still in place. He is requesting removal and he and his daughter are adamant. Did advise him of concern for possible urethral edema and traumatic reinsertion in the event that it would be necessary. Despite this, they are requesting condom catheter. We will oblige at this time. * Will be placed on Rocephin in addition to his current treatment of vancomycin (6) Acute occlusion of aortoiliac artery: Plan: * Dressing sites clean, dry, intact. * Continue to monitor for any signs or symptoms of bleeding or infection. (7) LV (left ventricular) mural thrombus: Plan: * Anticoagulated on apixaban. (8) CAD (coronary artery disease): Plan: Continue ASCVD Rx per outpatient course Admission and Anticipated Discharge Date Admission Date: May 13, 2022 Supervising Physician Co-Signing Physician Notes LAWANDA Supervision Note: I did not personally see or examine the patient today, but I verified all bingham points of LAWANDA Muniz's assessment and plan with the following exceptions/additions: None Subjective Patient was seen and evaluated bedside. He complains of ongoing bilateral lower extremity pain which she reports is been ongoing since the time of procedure. He reports this pain is not new or worsening. Additionally, he reports discomfort of his penis secondary to Gimenez catheter placement. He and his daughter are requesting Gimenez catheter removal. Daughter also is requesting that we reinstitute gabapentin dosing as she feels as though this medication was more helpful for her father's pain. He continues with rash to the LEFT lower extremity. He denies complaints of chest pain, palpitations, shortness of breath, pleuritic pain, nausea, vomiting, or abdominal discomfort. Review of Systems Review of Systems: A complete 10 point review of systems was reviewed with the patient with pertinent positives and negatives as per history of present illness. All else were negative. Physical Exam Physical Exam: VITAL SIGNS - Vital signs and nursing notes were reviewed. GENERAL - 71-year-old male appearing his stated age who is in no acute distress. Communicates well with provider and answers questions appropriately. NECK - Neck with FROM. LUNGS - Chest wall symmetric without accessory muscle use, intercostals retractions, or central cyanosis. Normal vesicular breath sounds CTA B/L. No wheezes, rales, or rhonchi appreciated. CARDIAC - RRR with S1/S2. No murmur, rubs, or gallops appreciated. No reproducible tenderness to palpation appreciated over the anterior chest wall. ABDOMEN - Abdominal contour protuberant without pulsations or visible masses. BS normoactive all four quadrants. No tenderness, palpable masses, hepatosplenomegaly, or ascites noted. EXTREMITIES -ecchymosis noted to the bilateral groins. Dressings in the bilateral groins clean, dry, and intact. No discharge or drainage noted. Pretibial edema present bilaterally. Diminished DP pulses bilaterally. NEUROLOGIC - Cranial nerves II through XII grossly intact. Sensory intact to light touch throughout. PSYCH - A&Ox3 and cooperates fully with examiner. Pt is very pleasant and interacts well with examiner. Results & Data ([facility]) Vital Signs (Past 12 Hours) Vital Signs Temp Pulse Resp BP Pulse Ox O2 Del Method 05/13/22 09:39 99 H 18 91/63 L 97 05/13/22 08:50 101 H 18 92/64 L 97 05/13/22 08:48 107 H 05/13/22 06:30 102 H 20 99/62 L 97 05/13/22 06:00 111 H 13 05/13/22 06:00 98/67 L 05/13/22 05:30 98 H 17 05/13/22 05:30 106/63 12/27/22 05:00 101 H 14 05/13/22 05:00 94/58 L 05/13/22 04:30 101 H 21 05/13/22 04:30 98/70 L 05/13/22 04:00 132 H 23 95 05/13/22 04:00 109/64 05/13/22 03:58 88 15 94 05/13/22 03:58 107/56 L 05/13/22 03:31 107 H 16 96 05/13/22 03:31 90/64 L 05/13/22 03:30 110 H 17 05/13/22 03:19 112/59 L 05/13/22 03:19 100 H 22 94 05/13/22 03:18 104 H 21 97 05/13/22 03:00 119 H 24 05/13/22 02:52 131 H 21 97 05/13/22 02:51 141/104 H 05/13/22 02:57 Room Air 05/13/22 02:57 37.2 C 148 H 18 141/104 H 96 Room Air 05/13/22 03:04 96 Room Air PG Care Time/CCT Total # of Minutes Spent Total Time Spent with Patient: Total time spent is greater than 50% in coordination of care (as documented) at patient's floor/unit and/or counseling patient: Coding Level of Care Code 87528 Subseq Hosp Care Lvl 3 Diagnoses Ischemic cardiomyopathy I25.5 Atrial fibrillation with rapid ventricular response I48.91 Leukocytosis D72.829 Cellulitis of lower extremity L03.119 UTI (urinary tract infection) due to urinary indwelling Gimenez catheter T83.511A; N39.0 Acute occlusion of aortoiliac artery I74.09 LV (left ventricular) mural thrombus I51.3 CAD (coronary artery disease) I25.10 Time Spent (min) 45
--- NOTE | 2022-05-13 10:56 | Pharmacy Report ---
Pharmacy PK ABX Note - Date of Service May 13, 2022 - Assessment and Plan Assessment 71 year old M receiving Vancomycin and Ceftriaxone for treatment of skin soft tissue infection. * Recent admitted at [facility] from 04/30/22-05/09/22 and underwent vascular surgery to [facility] on 05/02/22. * Afebrile. No leukocytosis. Lactate normal. * Blood and urine cx pending. Plan Vancomycin * Loading dose: 2250 mg IV x 1 * Maintenance dose: 1250 mg IV every 12 hours * Regimen is predicted to achieve target AUC/ADENIKE of 400-600 mg/L.hr * Random level ordered for: 05/15/22 Ceftriaxone * 2000 mg IV every 24 hours Pharmacy will continue to follow and will adjust dose/frequency as necessary. Thank you. Pharmacy has transitioned to AUC monitoring for vancomycin. AUC/ADENIKE is the preferred PK/PD target and is associated with decreased risk of nephrotoxicity compared to traditional trough targets.
[2022-05-13] MEDS: cefTRIAXone SODIUM 2,000 MG in DEXTROSE 5% 50 ML IV SCH (11:55)
--- NOTE | 2022-05-13 12:32 | Cardiology Consultation ---
Date of Consultation May 13, 2022 Assessment & Plan (1) Atrial fibrillation with rapid ventricular response: (2) CAD (coronary artery disease): (3) Hyperlipidemia: (4) Ischemic cardiomyopathy: (5) AICD (automatic cardioverter/defibrillator) present: (6) LV (left ventricular) mural thrombus: Plan 1. Atrial fibrillation: This appears to be permanent. During his last hospitalization his metoprolol dose was increased and digoxin was added for better rate control. It seems he is on his old dose of metoprolol and digoxin was not present on his current treatment plan from [facility]. It is very likely that the absence of these medications resulted in higher rates which unfortunately caused some inappropriate device therapy as well. We will try higher doses of metoprolol and reinstitution of digoxin. Should this fail to control his ventricular rates more definitive approach would be AV node ablation and upgrade of his current device to a biventricular ICD. He is currently on apixaban for left ventricular thrombus. 2. Coronary artery disease: No current symptoms suggestive of coronary insufficiency or angina. Prior surgical revascularization. He will be continued on aggressive secondary prevention which includes high-dose atorvastatin and apixaban. 3. Ischemic cardiomyopathy: Currently on metoprolol succinate and spironolactone. Blood pressure has been low and there is not appear to be option for more aggressive therapy with Entresto. The addition of an SG LT 2 inhibitors seems possible, although there is a higher incidence of limb amputation and he recently underwent vascular surgery for aortoiliac thrombus. 4. Congestive heart failure: Severely reduced LV systolic function. Remarkably well compensated given his degree of LV dysfunction. Have to monitor his pulmonary status closely. He is being given intravenous antibiotics. For any evidence of vascular congestion or worsening breathing difficulty we can administer p.r.n. doses of Lasix. 5. Elevated troponin: Very mild elevation in the setting of a severe cardiomyopathy and known coronary disease. I do not think this is territory service representative of an acute coronary syndrome. I do not think any additional testing is required in this regard. 6. Left ventricular thrombus: Discovered at his last admission. Currently on anticoagulant therapy which should be continued for approximately 3 months. He does have history of intracranial hemorrhage, but given his thrombotic event, the wrist benefit assessment favors continued anticoagulation. History of Present Illness Reason for Consultation: Atrial fibrillation, ICD therapy Requesting Physician: Keturah Attending Physician: Debra Rebollar MD History of Present Illness The patient is a 71-year-old gentleman with a history of an ischemic cardiomyopathy, apical thrombus, permanent atrial fibrillation and prior implantation of a dual-chamber ICD who was recently admitted to our facility on the 01 of May with an acute aortoiliac occlusion. Patient's hospitalization was complicated by rapid atrial fibrillation in he did undergo some medication adjustments at that time. It seems that he also received therapy by his ICD for elevated heart rates. He was eventually discharged to a rehab facility but was brought back to the hospital early this morning with elevated heart rates and possible therapy from his ICD. The patient did not report any specific symptoms. It is unclear why his heart rate was high at 130 a.m.. Patient did describe being weighed at his facility around that time. He did report some elevated heart rates and a sense of palpitation. He did not describe breathing difficulty. He reports being ambulatory at the rehab in participating in therapy with out specific symptoms. Perhaps mild dyspnea at times. No orthopnea. No exertional chest pain. He do es have dizziness this appears to refer more closely to fatigue and exercise intolerance than a sense of presyncope. Allergies Allergy/AdvReac Type Severity Reaction Status Date / Time No Known Allergies Allergy Verified 04/30/22 15:38 Home Medications Medication Instructions Recorded Confirmed Type furosemide 20 mg tablet 10 mg PO DAILY PRN edema #90 tabs 12/13/21 04/30/22 Rx metformin 500 mg tablet 500 mg PO BID #180 tabs 12/13/21 04/30/22 Rx atorvastatin 80 mg tablet 80 mg PO QPM 01/01/22 04/30/22 History escitalopram oxalate 10 mg tablet 10 mg PO HS 01/01/22 04/30/22 History (Lexapro) spironolactone 25 mg tablet 25 mg PO QPM 01/01/22 04/30/22 History allopurinol 100 mg tablet 100 mg PO DAILY 03/21/22 04/30/22 History metoprolol succinate 25 mg 25 mg PO DAILY #30 tabs 03/21/22 04/30/22 Rx tablet,extended release 24 hr metoprolol succinate 50 mg 100 mg PO QAM 30 days #60 tabs 03/21/22 04/30/22 Rx tablet,extended release 24 hr ropinirole 0.25 mg tablet 0.5 mg PO HS 04/30/22 04/30/22 History apixaban 5 mg tablet 5 mg PO Q12H #60 tabs 05/09/22 Rx ferrous gluconate 324 mg (37.5 mg 324 mg PO BID #90 tabs 05/09/22 Rx iron) tablet gabapentin 300 mg capsule 300 mg PO PM #20 caps 05/09/22 Rx loperamide 2 mg capsule 2 mg PO Q4H PRN loose stool #20 05/09/22 Rx caps oxycodone-acetaminophen 10 mg-325 1 tab PO Q4H PRN pain #20 tabs 05/09/22 Rx mg tablet oxycodone-acetaminophen 5 mg-325 1 tab PO Q4H PRN pain #20 tabs 05/09/22 Rx mg tablet (Percocet) ropinirole 0.25 mg tablet 0.5 mg PO TODAY@1999 #14 tabs 05/09/22 Rx tamsulosin 0.4 mg capsule 0.4 mg PO HS #20 caps 05/09/22 Rx Patient History Medical History Acute CVA (cerebrovascular accident) Atrial fibrillation with rapid ventricular response Elevated troponin Implantable cardioverter-defibrillator (ICD) discharge Surgical History H/O heart bypass surgery Family History Brother Diabetes Mother Hypertension Father Stroke Denies family history of Ovarian cancer Prostate cancer Myocardial infarction Breast cancer Colorectal cancer Social History Smoking Status: Never smoker Second Hand Exposure: No; Hx Alcohol Use: No Hx Substance Use: No Preferred Language: Belarusian 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: Effective Pharmacy Technician Per Diem Required: No Beliefs That Will Affect Care: None Current Living Situation: Family Current Living Situation Comment: lives with son current occupational status: retired Feels Safe at Home: Yes Physical Activity Frequency: 1-2 Times per Week Seatbelt Use: always Assistive Devices: Walker Review of Systems Review of Systems: Per HPI Physical Exam Physical Exam: The patient is alert and oriented. Mood and affect appeared normal. He answered all questions appropriately. HEENT: Pupils are equal and reactive to light and accommodation. Extraocular movements are intact. The sclerae are anicteric. Neuro: Cranial nerves intact Lungs: Occasional crackle left base. Otherwise good air movement. No expiratory wheezing. Normal respiratory effort.. Cardiac: Heart demonstrates an irregular rate and rhythm. Normal S1 and S2. No murmurs on examination. Pulses: The patient has palpable radial pulses bilaterally that are equal in intensity Extremities: Mild bilateral lower extremity edema. Erythematous rash on the left anterior tibial area Results & Data ([facility]) Vital Signs (Past 12 Hours) Vital Signs Temp Pulse Resp BP Pulse Ox O2 Del Method 05/13/22 09:39 99 H 18 91/63 L 97 05/13/22 08:50 101 H 18 92/64 L 97 05/13/22 08:48 107 H 05/13/22 06:30 102 H 20 99/62 L 97 05/13/22 06:00 111 H 13 05/13/22 06:00 98/67 L 05/13/22 05:30 98 H 17 05/13/22 05:30 106/63 05/13/22 05:00 101 H 14 05/13/22 05:00 94/58 L 05/13/22 04:30 101 H 21 05/13/22 04:30 98/70 L 05/13/22 04:00 132 H 23 95 05/13/22 04:00 109/64 05/13/22 03:58 88 15 94 05/13/22 03:58 107/56 L 05/13/22 03:31 107 H 16 96 05/13/22 03:31 90/64 L 05/13/22 03:30 110 H 17 05/13/22 03:19 112/59 L 05/13/22 03:19 100 H 22 94 05/13/22 03:18 104 H 21 97 05/13/22 03:00 119 H 24 05/13/22 02:52 131 H 21 97 05/13/22 02:51 141/104 H 05/13/22 02:57 Room Air 05/13/22 02:57 37.2 C 148 H 18 141/104 H 96 Room Air 05/13/22 03:04 96 Room Air Laboratory Results Abnormal Lab Results 05/13/22 05/13/22 05/13/22 02:57 02:57 02:57 WBC 22.56 H RBC 2.68 L Hgb 8.1 L Hct 24.0 L MCV 89.6 MCH 30.2 MCHC 33.8 RDW Std Deviation 53.6 H RDW Coeff of [place] 18.0 H Plt Count 374 MPV 9.9 Immature Gran % (Auto) 2.1 Neut % (Auto) 89.4 Lymph % (Auto) 4.4 [place] % (Auto) 3.5 Eos % (Auto) 0.3 Baso % (Auto) 0.3 Neut # (Auto) 20.18 H Lymph # (Auto) 0.99 L [place] # (Auto) 0.79 Eos # (Auto) 0.06 Baso # (Auto) 0.06 Immature Gran # (Auto) 0.48 H Absolute Nucleated RBC 0.07 H Nucleated RBC % (auto) 0.3 Polychromasia 1+ PT 15.1 H INR 1.4 H APTT 35.4 H PTT Ratio 1.3 Sodium 134 L Potassium 4.2 Chloride 100 Carbon Dioxide 26 Anion Gap 8 BUN 22 Creatinine 0.79 Est Cr Clr Drug Dosing Not Reportable Est GFR ( Amer) 103.2 Est GFR (Non-Af Amer) 89.1 BUN/Creatinine Ratio 27.8 H Glucose 130 H POC Glucose Lactate Calcium 8.4 L Total Bilirubin 2.5 H AST 50 H ALT 30 Alkaline Phosphatase 111 H Troponin I High Sens 28.8 H Total Protein 6.5 Albumin 3.0 L Globulin 3.5 Albumin/Globulin Ratio 0.9 Lipase 4 L Urine Color Urine Appearance Urine pH Ur Specific Delta Urine Protein Urine Glucose (UA) Urine Ketones Urine Blood Urine Nitrite Urine Bilirubin Urine Urobilinogen Ur Leukocyte Esterase Urine WBC (Auto) Urine RBC (Auto) U Hyaline Cast (Auto) U Epithel Cells (Auto) Urine Bacteria (Auto) SARS-CoV-2 (PCR) Influenza Type A (PCR) Influenza Type B (PCR) RSV (RT-PCR) 05/13/22 05/13/22 05/13/22 03:58 04:00 04:04 WBC RBC Hgb Hct MCV MCH MCHC RDW Std Deviation RDW Coeff of [place] Plt Count MPV Immature Gran % (Auto) Neut % (Auto) Lymph % (Auto) [place] % (Auto) Eos % (Auto) Baso % (Auto) Neut # (Auto) Lymph # (Auto) [place] # (Auto) Eos # (Auto) Baso # (Auto) Immature Gran # (Auto) Absolute Nucleated RBC Nucleated RBC % (auto) Polychromasia PT INR APTT PTT Ratio Sodium Potassium Chloride Carbon Dioxide Anion Gap BUN Creatinine Est Cr Clr Drug Dosing Est GFR ( Amer) Est GFR (Non-Af Amer) BUN/Creatinine Ratio Glucose POC Glucose Lactate 1.6 Calcium Total Bilirubin AST ALT Alkaline Phosphatase Troponin I High Sens Total Protein Albumin Globulin Albumin/Globulin Ratio Lipase Urine Color [place] Urine Appearance Turbid A Urine pH 6.0 Ur Specific Delta 1.022 Urine Protein 1+ H Urine Glucose (UA) Negative Urine Ketones Trace H Urine Blood 3+ H Urine Nitrite Positive A Urine Bilirubin 1+ H Urine Urobilinogen Positive H Ur Leukocyte Esterase 3+ H Urine WBC (Auto) >30 H Urine RBC (Auto) >30 H U Hyaline Cast (Auto) 0 U Epithel Cells (Auto) >30 H Urine Bacteria (Auto) 4+ H SARS-CoV-2 (PCR) NEGATIVE Influenza Type A (PCR) Negative Influenza Type B (PCR) Negative RSV (RT-PCR) Negative 05/13/22 09:28 WBC RBC Hgb Hct MCV MCH MCHC RDW Std Deviation RDW Coeff of [place] Plt Count MPV Immature Gran % (Auto) Neut % (Auto) Lymph % (Auto) [place] % (Auto) Eos % (Auto) Baso % (Auto) Neut # (Auto) Lymph # (Auto) [place] # (Auto) Eos # (Auto) Baso # (Auto) Immature Gran # (Auto) Absolute Nucleated RBC Nucleated RBC % (auto) Polychromasia PT INR APTT PTT Ratio Sodium Potassium Chloride Carbon Dioxide Anion Gap BUN Creatinine Est Cr Clr Drug Dosing Est GFR ( Amer) Est GFR (Non-Af Amer) BUN/Creatinine Ratio Glucose POC Glucose 128 H Lactate Calcium Total Bilirubin AST ALT Alkaline Phosphatase Troponin I High Sens Total Protein Albumin Globulin Albumin/Globulin Ratio Lipase Urine Color Urine Appearance Urine pH Ur Specific Delta Urine Protein Urine Glucose (UA) Urine Ketones Urine Blood Urine Nitrite Urine Bilirubin Urine Urobilinogen Ur Leukocyte Esterase Urine WBC (Auto) Urine RBC (Auto) U Hyaline Cast (Auto) U Epithel Cells (Auto) Urine Bacteria (Auto) SARS-CoV-2 (PCR) Influenza Type A (PCR) Influenza Type B (PCR) RSV (RT-PCR) Diagnostic Findings Chest x-ray obtained today revealed cardiomegaly with pulmonary vascular congestion. Echocardiogram 04/30/2022: Severely reduced LV systolic function with ejection fraction less than 15%. Moderate size apical thrombus measured at 1.5 x 3 cm. Mild mitral regurgitation. Moderate left atrial dilation. I performed a complete device interrogation of his dual-chamber [employer] ICD. He did receive therapy twice this morning for elevated ventricular rates. This was inappropriate therapy due to rapidly conducted at rial fibrillation. ECG Additional Comments: EKG obtained the time admission revealed atrial fibrillation with rapid ventricular response. Old anterior myocardial infarction. PG Care Time/CCT Total # of Minutes Spent Total Time Spent with Patient: Total time spent is greater than 50% in coordination of care (as documented) at patient's floor/unit and/or counseling patient: Coding Level of Care Code 66483 Initial Inpt Care Lvl 3 Diagnoses Atrial fibrillation with rapid ventricular response I48.91 CAD (coronary artery disease) I25.10 Hyperlipidemia E78.5 Ischemic cardiomyopathy I25.5 AICD (automatic cardioverter/defibrillator) present Z95.810 LV (left ventricular) mural thrombus I51.3
[2022-05-13] MEDS: oxyCODONE/ACETAMINOPHEN 5mg/325mg TAB PO PRN (13:08)
[2022-05-13] MEDS: DIGOXIN 0.125 MG TAB PO SCH (16:45)
[2022-05-13] MEDS: ATORVASTATIN 40 MG TAB PO SCH (16:45)
--- NOTE | 2022-05-13 17:08 | Electrocardiogram Report ---
Test Reason : Blood Pressure : / mmHG Vent. Rate : 138 BPM Atrial Rate : 117 BPM P-R Int : 000 ms QRS Dur : 106 ms QT Int : 292 ms P-R-T Axes : 000 -34 126 degrees QTc Int : 442 ms Atrial fibrillation with rapid ventricular response Left axis deviation Moderate voltage criteria for LVH, may be normal variant Anteroseptal infarct (cited on or before 03-SEP-2020) Abnormal ECG When compared with ECG of 01-MAY-2022 14:17, No significant change was found Confirmed by Monico Thomas ([id number]) on 05/13/2022 5:08:20 PM Referred By: REFERRED SELF Confirmed By:Zaid Thomas
[2022-05-13] MEDS: VANCOMYCIN HCL 1,250 MG in SODIUM CHLORIDE 0.9% 250 ML IV SCH (18:29)
[2022-05-13] MEDS ORDERED: METOPROLOL TARTRATE 1 MG/ML VIAL IV STA ×3 (20:22→22:48)
[2022-05-13] MEDS: rOPINIRole HCL 0.25 MG TABLET PO SCH (20:35)
[2022-05-13] MEDS: GABAPENTIN 300 MG CAP PO SCH (20:35)
[2022-05-13] MEDS: TAMSULOSIN HCL 0.4 MG CAP PO SCH (20:35)
[2022-05-13] MEDS: SPIRONOLACTONE 25 MG TAB PO SCH (20:35)
[2022-05-13] MEDS: ESCITALOPRAM OXALATE 10 MG TAB PO SCH (20:35)
[2022-05-14] MEDS ORDERED: METOPROLOL TARTRATE 1 MG/ML VIAL IV STA ×3 (00:48→22:38)
[2022-05-14] MEDS: ACETAMINOPHEN 325 MG TAB PO PRN (03:18)
[2022-05-14] MEDS: VANCOMYCIN HCL 1,250 MG in SODIUM CHLORIDE 0.9% 250 ML IV SCH ×2 (06:00→18:36)
[2022-05-14] MEDS: oxyCODONE/ACETAMINOPHEN 5mg/325mg TAB PO PRN ×2 (07:40→13:56)
[2022-05-14] MEDS: allopurinoL 100 MG TAB PO SCH (07:44)
[2022-05-14] MEDS: METOPROLOL SUCC 50MG EXT REL TAB PO SCH (07:45)
--- NOTE | 2022-05-14 08:08 | Hospitalist Progress Note ---
Date of Service May 14, 2022 Assessment & Plan (1) Ischemic cardiomyopathy: Plan: * Patient with an EF of less than 15% on recent echocardiogram. Patient with new firing of ICD. He had a similar episode while being induced for the initial procedure to correct his acute occlusion of the aortoiliac artery. Digoxin has been reinstituted. Rate control is been appropriate currently. * Continue his metoprolol dosing. * Continue apixaban. * Appreciate cardiology consultation. (2) Atrial fibrillation with rapid ventricular response: Plan: * Continue medications as above. (3) Leukocytosis: Plan: * In the setting of possible LEFT lower extremity cellulitis. Initially placed on vancomycin. * Given the new findings of UTI, will add Rocephin in addition to the vancomycin. Urine and blood cultures pending. * Urine cultures demonstrate gram-negative bacilli. Sensitivities to follow. Continue current antibiotic regime until sensitivities available. (4) Cellulitis of lower extremity: Plan: * Will broaden antibiotic coverage to include Rocephin in the setting of newfound UTI. (5) UTI (urinary tract infection) due to urinary indwelling Gimenez catheter: Plan: * Patient with Gimenez catheter still in place. He is requesting removal and he and his daughter are adamant. Did advise him of concern for possible urethral edema and traumatic reinsertion in the event that it would be necessary. Andrew pite this, they are requesting condom catheter. We will oblige at this time. * Will be placed on Rocephin in addition to his current treatment of vancomycin (6) Acute occlusion of aortoiliac artery: Plan: * Dressing sites clean, dry, intact. * Continue to monitor for any signs or symptoms of bleeding or infection. (7) LV (left ventricular) mural thrombus: Plan: * Anticoagulated on apixaban. (8) CAD (coronary artery disease): Plan: Continue ASCVD Rx per outpatient course Admission and Anticipated Discharge Date Admission Date: May 13, 2022 Supervising Physician Co-Signing Physician Notes PA Supervision Note: I did not personally see or examine the patient today, but I verified all b[place] points of LAWANDA Muniz's assessment and plan with the following exceptions/additions: None Subjective Patient was seen and evaluated by myself at bedside. He reports that his pain has been greatly improved. He does have some pain in his lower extremities when he was out of bed. Otherwise, he reports feeling much better at this time. He did participate in PT OT therapies today. Review of Systems Review of Systems: A complete 10 point review of systems was reviewed with the patient with pertinent positives and negatives as per history of present illness. All else were negative. Physical Exam Physical Exam: VITAL SIGNS - Vital signs and nursing notes were reviewed. GENERAL - 71-year-old male appearing his stated age who is in no acute distress. Communicates well with provider and answers questions appropriately. NECK - Neck with FROM. LUNGS - Chest wall symmetric without accessory muscle use, intercostals retractions, or central cyanosis. Normal vesicular breath sounds CTA B/L. No wheezes, rales, or rhonchi appreciated. CARDIAC - RRR with S1/S2. No murmur, rubs, or gallops appreciated. No reproducible tenderness to palpation appreciated over the anterior chest wall. ABDOMEN - Abdominal contour protuberant without pulsations or visible masses. BS normoactive all four quadrants. No tenderness, palpable masses, hepatosplenomegaly, or ascites noted. EXTREMITIES -ecchymosis noted to the bilateral groins. Dressings in the bilateral groins clean, dry, and intact. No discharge or drainage noted. Pretibial edema present bilaterally. Diminished DP pulses bilaterally. NEUROLOGIC - Cranial nerves II through XII grossly intact. Sensory intact to light touch throughout. PSYCH - A&Ox3 and cooperates fully with examiner. Pt is very pleasant and interacts well with examiner. Results & Data Results & Data ([facility]) Vital Signs (Past 12 Hours) Vital Signs Temp Pulse Pulse Resp BP BP Pulse Ox 05/14/22 03:08 133 H 118/69 05/14/22 02:59 36.6 C 126 H 18 118/69 95 05/14/22 00:57 159 H 111/69 05/14/22 00:56 159 H 111/69 05/13/22 22:58 135 H 104/69 05/13/22 22:56 135 H 104/69 05/13/22 22:34 141 H 108/57 L 05/13/22 22:26 37.3 C 141 H 20 108/57 L 97 05/13/22 22:14 05/13/22 20:50 36.7 C 124 H 18 116/70 95 05/13/22 20:30 138 H 114/79 O2 Del Method 05/14/22 03:08 05/14/22 02:59 Room Air 05/14/22 00:57 05/14/22 00:56 05/13/22 22:58 05/13/22 22:56 05/13/22 22:34 05/13/22 22:26 Room Air 05/13/22 22:14 Room Air 05/13/22 20:50 Room Air 05/13/22 20:30
[2022-05-14] MEDS: INSULIN ASPART PER UNIT SC SCH ×4 (08:23→20:22)
[2022-05-14 08:39] LABS: Hematocrit (blood only) 26.1 % (40.1-51.0); Hemoglobin 8.8 g/dl (14.0-18.0); Mean Corpuscular Hgb Conc 33.7 g/dL (32.0-36.0); Mean Corpuscular Volume 89.1 fL (80.0-100.0); Mean Platelet Volume 9.8 fL (9.4-12.4); Nucleated RBC # (auto) 0.06 K/uL (0-0); Nucleated RBC % (auto) 0.4 %; Platelet Count 385 K/uL (130-400); RDW Coefficient of Variation 18.4 % (11.5-14.5); RDW Standard Deviation 55.2 fL (36.4-46.3); Red Blood Count 2.93 M/uL (4.63-6.08); White Blood Count 14.24 K/ul (4.8-10.8)
[2022-05-14 08:58] LABS: Estimated Average Glucose 128 mg/dl; Hemoglobin A1C 6.1 % (4.5-5.6)
[2022-05-14 09:23] LABS: Albumin Globulin Ratio 0.8 (0.9-2); Albumin Level 3.1 gm/dl (3.4-5.0); BUN Creatinine Ratio 29.7 (10-20); Bilirubin,Total 2.2 mg/dl (0.2-1.0); Calcium 8.6 mg/dl (8.5-10.1); Creatinine Clr Calc Pharmacy 118.7 ml/min; Est GFR (African American) 106.1 ml/min; Est GFR (Non-African American) 91.5 ml/min; Globulin 3.8 gm/dl (2.5-4.0); Magnesium 1.9 mg/dl (1.7-2.4); Potassium 4.4 mmol/L (3.5-5.1); Total Protein 6.9 gm/dl (6.0-8.3)
[2022-05-14] MEDS ORDERED: DIGOXIN 0.125 MG TAB PO ONE (09:31)
--- NOTE | 2022-05-14 11:27 | Cardiology Progress Note ---
Date of Service May 14, 2022 Assessment & Plan (1) Atrial fibrillation with rapid ventricular response: (2) CAD (coronary artery disease): (3) Hyperlipidemia: (4) Ischemic cardiomyopathy: (5) AICD (automatic cardioverter/defibrillator) present: (6) LV (left ventricular) mural thrombus: Plan 1. Atrial fibrillation: He continues to have high rates this morning. However, he did not get metoprolol at all yesterday. He did get his usual dose this morning and another dose of digoxin. Digoxin level was low. We will see how he responds to his metoprolol today. Perhaps will administer another dose this evening. 2. Coronary artery disease: No current symptoms suggestive of coronary insufficiency or angina. 3. Ischemic cardiomyopathy: Currently on metoprolol succinate and spironolactone. Blood pressure has been low and there is not appear to be option for more aggressive therapy with Entresto. The addition of an SG LT 2 inhibitors seems possible, although there is a higher incidence of limb amputation and he recently underwent vascular surgery for aortoiliac thrombus. 4. Congestive heart failure: Severely reduced LV systolic function. He seems well compensated. He was lying flat without breathing difficulty today. Lung examination was benign. Will have low threshold for administrating diuretics 5. Elevated troponin: Very mild elevation in the setting of a severe cardiomyopathy and known coronary disease. I do not think this is representati ve of an acute coronary syndrome. I do not think any additional testing is required in this regard. 6. Left ventricular thrombus: Discovered at his last admission. Currently on anticoagulant therapy which should be continued for approximately 3 months. He does have history of intracranial hemorrhage, but given his thrombotic event, the wrist benefit assessment favors continued anticoagulation. Overall stable. Will continue attempts at rate control with digoxin and metoprolol succinate. Admission and Anticipated Discharge Date Admission Date: May 13, 2022 Subjective This morning the patient complained of some mild left leg discomfort. He denies significant breathing difficulty. No chest pain. Occasional sense of palpitation Review of Systems Review of Systems: Per HPI Physical Exam Physical Exam: The patient is alert and oriented. Mood and affect appeared normal. He answered all questions appropriately. HEENT: Pupils are equal and reactive to light and accommodation. Extraocular movements are intact. The sclerae are anicteric. Neuro: Cranial nerves intact Lungs: Occasional crackle left base. Otherwise good air movement. No expiratory wheezing. Normal respiratory effort. Cardiac: Heart demonstrates an irregular rate and rhythm. Normal S1 and S2. No murmurs on examination. Pulses: The patient has palpable radial pulses bilaterally that are equal in intensity Extremities: Mild bilateral lower extremity edema. Erythematous rash on the left anterior tibial area Results & Data ([facility]) Vital Signs (Past 12 Hours) Vital Signs Temp Pulse Pulse Resp BP BP Pulse Ox 05/14/22 11:00 37.0 C 112 H 19 106/69 95 05/14/22 07:00 36.8 C 117 H 19 103/83 98 05/14/22 03:08 133 H 118/69 05/14/22 02:59 36.6 C 126 H 18 118/69 95 05/14/22 00:57 159 H 111/69 05/14/22 00:56 159 H 111/69 O2 Del Method 05/14/22 11:00 Room Air 05/14/22 07:00 Room Air 05/14/22 03:08 05/14/22 02:59 Room Air 05/14/22 00:57 05/14/22 00:56 Laboratory Results Abnormal Lab Results 05/13/22 05/13/22 05/13/22 12:35 18:25 20:09 WBC RBC Hgb Hct MCV MCH MCHC RDW Std Deviation RDW Coeff of Moriah Plt Count MPV Absolute Nucleated RBC Nucleated RBC % (auto) Sodium Potassium Chloride Carbon Dioxide Anion Gap BUN Creatinine Est Cr Clr Drug Dosing Est GFR ( Amer) Est GFR (Non-Af Amer) BUN/Creatinine Ratio Glucose POC Glucose 115 H 97 126 H Estimat Average Glucose Hemoglobin A1c Calcium Magnesium Total Bilirubin AST ALT Alkaline Phosphatase Total Protein Albumin Globulin Albumin/Globulin Ratio Digoxin 05/14/22 05/14/22 05/14/22 07:27 08:08 08:08 WBC 14.24 H RBC 2.93 L Hgb 8.8 L Hct 26.1 L MCV 89.1 MCH 30.0 MCHC 33.7 RDW Std Deviation 55.2 H RDW Coeff of Moriah 18.4 H Plt Count 385 MPV 9.8 Absolute Nucleated RBC 0.06 H Nucleated RBC % (auto) 0.4 Sodium Potassium Chloride Carbon Dioxide Anion Gap BUN Creatinine Est Cr Clr Drug Dosing Est GFR ( Amer) Est GFR (Non-Af Amer) BUN/Creatinine Ratio Glucose POC Glucose 132 H Estimat Average Glucose Hemoglobin A1c Calcium Magnesium Total Bilirubin AST ALT Alkaline Phosphatase Total Protein Albumin Globulin Albumin/Globulin Ratio Digoxin 0.5 L 05/14/22 05/14/22 05/14/22 08:08 08:08 11:09 WBC RBC Hgb Hct MCV MCH MCHC RDW Std Deviation RDW Coeff of Moriah Plt Count MPV Absolute Nucleated RBC Nucleated RBC % (auto) Sodium 135 L Potassium 4.4 Chloride 103 Carbon Dioxide 24 Anion Gap 8 BUN 22 Creatinine 0.74 Est Cr Clr Drug Dosing 118.7 Est GFR ( Amer) 106.1 Est GFR (Non-Af Amer) 91.5 BUN/Creatinine Ratio 29.7 H Glucose 122 H POC Glucose 122 H Estimat Average Glucose 128 Hemoglobin A1c 6.1 H Calcium 8.6 Magnesium 1.9 Total Bilirubin 2.2 H AST 63 H ALT 37 Alkaline Phosphatase 138 H Total Protein 6.9 Albumin 3.1 L Globulin 3.8 Albumin/Globulin Ratio 0.8 L Digoxin PG Care Time/CCT Total # of Minutes Spent Total Time Spent with Patient: Total time spent is greater than 50% in coordination of care (as documented) at patient's floor/unit and/or counseling patient: Coding Level of Care Code 14478 Subseq Hosp Care Lvl 2 Diagnoses Atrial fibrillation with rapid ventricular response I48.91 CAD (coronary artery disease) I25.10 Hyperlipidemia E78.5 Ischemic cardiomyopathy I25.5 AICD (automatic cardioverter/defibrillator) present Z95.810 LV (left ventricular) mural thrombus I51.3
[2022-05-14] MEDS: APIXABAN 5 MG TABLET PO SCH ×2 (12:42→20:34)
[2022-05-14] MEDS: cefTRIAXone SODIUM 2,000 MG in DEXTROSE 5% 50 ML IV SCH (12:42)
[2022-05-14] MEDS ORDERED: METOPROLOL TARTRATE 25 MG TAB PO ONE (17:10)
[2022-05-14] MEDS: ATORVASTATIN 40 MG TAB PO SCH (17:42)
[2022-05-14] MEDS: DIGOXIN 0.125 MG TAB PO SCH (17:42)
[2022-05-14] MEDS: rOPINIRole HCL 0.25 MG TABLET PO SCH (18:37)
[2022-05-14] MEDS: GABAPENTIN 300 MG CAP PO SCH (20:34)
[2022-05-14] MEDS: TAMSULOSIN HCL 0.4 MG CAP PO SCH (20:34)
[2022-05-14] MEDS: SPIRONOLACTONE 25 MG TAB PO SCH (20:35)
[2022-05-14] MEDS: ESCITALOPRAM OXALATE 10 MG TAB PO SCH (20:35)
[2022-05-15] MEDS: oxyCODONE/ACETAMINOPHEN 5mg/325mg TAB PO PRN (04:15)
[2022-05-15] MEDS ORDERED: VANCOMYCIN LEVEL ONE (05:30)
[2022-05-15] MEDS: VANCOMYCIN HCL 1,250 MG in SODIUM CHLORIDE 0.9% 250 ML IV SCH (06:37)
[2022-05-15] MEDS: ACETAMINOPHEN 325 MG TAB PO PRN ×3 (06:50→20:27)
[2022-05-15 06:51] LABS: Basophils # (auto) 0.05 K/uL (0-0.2); Basophils % (auto) 0.5 %; Eosinophils # (auto) 0.04 K/uL (0-0.50); Eosinophils % (auto) 0.4 %; Hematocrit (blood only) 22.7 % (40.1-51.0); Hemoglobin 7.8 g/dl (14.0-18.0); Immature Granulocytes # (auto) 0.12 K/uL (0.00-0.02); Immature Granulocytes % (auto) 1.3 %; Lymphocytes # (auto) 1.09 K/uL (1.2-3.4); Lymphocytes % (auto) 11.5 %; Mean Corpuscular Hemoglobin 29.5 pg (25.0-34.0); Mean Corpuscular Hgb Conc 34.4 g/dL (32.0-36.0); Mean Platelet Volume 9.6 fL (9.4-12.4); Monocytes # (auto) 0.55 K/uL (0.24-0.82); Monocytes % (auto) 5.8 %; Neutrophils # (auto) 7.61 K/uL (1.4-6.5); Neutrophils % (auto) 80.5 %; Nucleated RBC # (auto) 0.07 K/uL (0-0); Nucleated RBC % (auto) 0.7 %; Platelet Count 310 K/uL (130-400); RDW Coefficient of Variation 17.9 % (11.5-14.5); RDW Standard Deviation 52.5 fL (36.4-46.3); Red Blood Count 2.64 M/uL (4.63-6.08); White Blood Count 9.46 K/ul (4.8-10.8)
[2022-05-15 07:08] LABS: Digoxin 0.7 ng/ml (0.8-2.0); Vancomycin Random 8.7 mcg/ml (10-20)
[2022-05-15 07:14] LABS: Albumin Level 2.8 gm/dl (3.4-5.0); BUN Creatinine Ratio 29.2 (10-20); Bilirubin Direct 0.3 mg/dl (0-0.2); Bilirubin,Total 1.7 mg/dl (0.2-1.0); Creatinine Clr Calc Pharmacy 121.9 ml/min; Est GFR (African American) 107.3 ml/min; Est GFR (Non-African American) 92.5 ml/min; Magnesium 1.9 mg/dl (1.7-2.4); Phosphorus 3.4 mg/dl (2.5-4.9); Potassium 4.1 mmol/L (3.5-5.1); Total Protein 6.2 gm/dl (6.0-8.3)
[2022-05-15 07:17] LABS: Polychromasia 1+
[2022-05-15] MEDS: METOPROLOL SUCC 50MG EXT REL TAB PO SCH (07:35)
[2022-05-15] MEDS: APIXABAN 5 MG TABLET PO SCH ×2 (07:35→20:27)
[2022-05-15] MEDS: allopurinoL 100 MG TAB PO SCH (07:36)
--- NOTE | 2022-05-15 07:38 | Pharmacy Report ---
Pharmacy PK ABX Note - Date of Service May 15, 2022 - Assessment and Plan Assessment 71 year old M receiving Vancomycin and Ceftriaxone for treatment of skin soft tissue infection. * Recent admitted at [facility] from 04/30/22-05/09/22 and underwent vascular surgery to [facility] on 05/02/22. * Afebrile. Leukocytosis improved: 22.6k --> 14.2k --> 9.5k. * Blood cx w/ no growth to date. Urine cx with K. pneumoniae sensitive to ceftriaxone. Will reach out to provider regarding discontinuing Vancomycin today. Plan Vancomycin * Current regimen: 1250 mg IV every 12 hours * Random level obtained 05/15/22 resulted as 8.7 mcg/mL. This is subtherapeutic. * Change to 1500 mg IV every 12 hours. Predicted AUC at steady state: 446 mg/L.hr * No level will be ordered at this time as vancomycin can likely be discontinued given significant improvement despite subtherapeutic vancomycin levels. Ceftriaxone * 2000 mg IV every 24 hours Pharmacy will continue to follow and will adjust dose/frequency as necessary. Thank you. Pharmacy has transitioned to AUC monitoring for vancomycin. AUC/ADENIKE is the preferred PK/PD target and is associated with decreased risk of nephrotoxicity compared to traditional trough targets.
[2022-05-15] MEDS: INSULIN ASPART PER UNIT SC SCH ×4 (08:48→21:14)
--- NOTE | 2022-05-15 09:48 | Hospitalist Progress Note ---
Date of Service May 15, 2022 Assessment & Plan (1) Ischemic cardiomyopathy: Plan: * Patient with an EF of less than 15% on recent echocardiogram. Patient with new firing of ICD. He had a similar episode while being induced for the initial procedure to correct his acute occlusion of the aortoiliac artery. Digoxin has been reinstituted. Rate control is been appropriate currently. * Continue his metoprolol at increased dose of 200mg daily * Continue apixaban. * Heart rates have been stable on current treatment plan. * Appreciate cardiology consultation. * check dig level in AM (2) Atrial fibrillation with rapid ventricular response: Plan: * Continue medications as above. Rates improving * ELiquis on board for recent LV thrombus and iliac thombi but only x 3 months due to h/o ICH x 2 (3) Leukocytosis: Plan: * In the setting of LEFT lower extremity cellulitis. Initially placed on vancomycin. * Given the new findings of UTI, added Rocephin in addition to the vancomycin. * blood cx NGTD * Urine cultures demonstrate mccollum sensitive Klebsiella pneumoniae. * White count resolved. * Hopefully we can transition him to PO antibiotics for discharge soon. (4) Cellulitis of lower extremity: Plan: * Remains on Rocephin and Vancomycin * with recent vascular surgery and healing incisions * improving (5) UTI (urinary tract infection) due to urinary indwelling Gimenez catheter: Plan: * Doing well with [place] catheter since removal of Gimenez * Antibiotics as above. (6) Acute occlusion of aortoiliac artery: Plan: * There was a question overnight about the dressing sites. * Wounds appear clean, dry, and intact. No warmth to touch. No discharge or drainage noted. * Persistent edema under the incision site with associated hematoma. * No change in exam findings from admission. * Continue to monitor for any signs or symptoms of bleeding or infection. * stop percocet due to causing mild confusion (7) LV (left ventricular) mural thrombus: Plan: * Anticoagulated on apixaban-plan x 3 months given h/o SAH (8) CAD (coronary artery disease): Plan: Continue ASCVD Rx per outpatient course but all antiplatelets have been recently stopped due to need for Eliquis and h/o ICH Continue metoprolol, statin (9) Depression: Plan: continue lexapro (10) Anemia: Plan: hgb down to 7.7 but fairly stable from previous had acute blood loss anemia last admission after developing hematomas at bilat groin surgical sites s/p Vascular surgery check Fe studies in AM and replace with IV iron if low transfuse if hgb< 7 (11) Diabetes: Plan: HgbA1C only 6.1%, receiving minimal insulin here continue glucose checks, SSI (12) Subarachnoid hemorrhage: Plan: H/o SDH in 2020 and then found to have a trace SAH during recent admission for LV thrombus repeat head CT on 05/07 showed resolution of trace SAH repeat head CT if develops headache or focal neuro symptoms Admission and Anticipated Discharge Date Admission Date: May 13, 2022 Supervising Physician Co-Signing Physician Notes PA Supervision Note: I did not personally see or examine the patient today, but I verified all bingham points of LAWANDA Muniz's assessment and plan with the following exceptions/additions: Multiple additions made to note as above Subjective Patient was seen and evaluated at bedside today. He initially was sleepy during morning rounds. I did follow-up the patient around lunchtime. He was much more awake and alert this time. He does complain of ongoing waxing waning discomfort of his lower extremities. Previously had been controlled on Percocet. We will reduce his Percocet dosing secondary to some concerns of possible confusion. His H&H did drop slightly today, but not profoundly. He is hemodynamically stable otherwise. We will repeat H&H and continue to trend. We will follow-up with his daughters present at bedside. Hopes for transfer back to [facility] when able. Review of Systems Review of Systems: A complete 10 point review of systems was reviewed with the patient with pertinent positives and negatives as per history of present illness. All else were negative. Physical Exam Physical Exam: VITAL SIGNS - Vital signs and nursing notes were reviewed. GENERAL - 71-year-old male appearing his stated age who is in no acute distress. Communicates well with provider and answers questions appropriately. NECK - Neck with FROM. LUNGS - Chest wall symmetric without accessory muscle use, intercostals retractions, or central cyanosis. Normal vesicular breath sounds CTA B/L. No wheezes, rales, or rhonchi appreciated. CARDIAC - RRR with S1/S2. No murmur, rubs, or gallops appreciated. No reproducible tenderness to palpation appreciated over the anterior chest wall. ABDOMEN - Abdominal contour protuberant without pulsations or visible masses. BS normoactive all four quadrants. No tenderness, palpable masses, hepatosplenomegaly, or ascites noted. EXTREMITIES - area of cellulitis appears improved. ecchymosis noted to the bilateral groins. Dressings were clean, dry, and intact. No erythema, warmth to touch, or discharge noted. Pretibial edema present bilaterally. Diminished DP pulses bilaterally. NEUROLOGIC - Cranial nerves II through XII grossly intact. Sensory intact to light touch throughout. PSYCH - Patient alert and oriented. Appears pleasantly confused, but attempts to change the subject when asked specific questions. He is very conversant otherwise and reports feeling better. Results & Data Results & Data ([facility]) Vital Signs (Past 12 Hours) Vital Signs Temp Pulse Pulse Resp BP BP BP 05/15/22 09:37 05/15/22 07:33 36.8 C 118 H 28 H 117/66 05/15/22 04:40 36.8 C 125 H 17 118/87 05/14/22 23:23 124 H 05/14/22 22:53 133 H 108/73 05/14/22 22:28 132 H 19 108/73 Pulse Ox O2 Del Method 05/15/22 09:37 Room Air 05/15/22 07:33 95 Room Air 05/15/22 04:40 95 Room Air 05/14/22 23:23 05/14/22 22:53 05/14/22 22:28 95 Room Air
[2022-05-15] MEDS: cefTRIAXone SODIUM 2,000 MG in DEXTROSE 5% 50 ML IV SCH (09:52)
[2022-05-15 12:24] LABS: Hematocrit (blood only) 22.6 % (40.1-51.0); Hemoglobin 7.7 g/dl (14.0-18.0)
[2022-05-15] MEDS: ATORVASTATIN 40 MG TAB PO SCH (16:06)
[2022-05-15] MEDS: DIGOXIN 0.125 MG TAB PO SCH (16:06)
--- NOTE | 2022-05-15 16:24 | Cardiology Progress Note ---
Date of Service May 15, 2022 Assessment & Plan (1) Atrial fibrillation with rapid ventricular response: (2) CAD (coronary artery disease): (3) Hyperlipidemia: (4) Ischemic cardiomyopathy: (5) AICD (automatic cardioverter/defibrillator) present: (6) LV (left ventricular) mural thrombus: Plan 1. Atrial fibrillation: His rates appear notably improved. This afternoon his heart rate appears to be below 100 most of the time. I think we will continue with current dose of metoprolol succinate and digoxin. I will order a digoxin level for the morning. 2. Coronary artery disease: No current symptoms suggestive of coronary insufficiency or angina. 3. Ischemic cardiomyopathy: Currently on metoprolol succinate and spironolactone. Blood pressure has been low and there does not appear to be option for more aggressive therapy with Entresto. The addition of an SG LT 2 inhibitors seems possible, although there is a higher incidence of limb amputation and he recently underwent vascular surgery for aortoiliac thrombus. 4. Congestive heart failure: Severely reduced LV systolic function. He seems well compensated. He was lying flat without breathing difficulty today. Lung examination was benign. Will continue to monitor for any indication of diuretic. 5. Elevated troponin: Very mild elevation in the setting of a severe cardiomyopathy and known coronary disease. I do not think this is residential sales representative of an acute coronary syndrome. I do not think any additional testing is required in this regard. 6. Left ventricular thrombus: Discovered at his last admission. Currently on anticoagulant therapy which should be continued for approximately 3 months. He does have history of intracranial hemorrhage, but given his thrombotic event, the wrist benefit assessment favors continued anticoagulation. Overall improved from cardiovascular standpoint. Will monitor his heart rate in check a digoxin level in the morning. Admission and Anticipated Discharge Date Admission Date: May 13, 2022 Subjective This afternoon the patient complained primarily of left leg pain. He denies any breathing difficulty. No sense of palpitation. Review of Systems Review of Systems: Per HPI Physical Exam Physical Exam: The patient is alert and oriented. Mood and affect appeared normal. He answered all questions appropriately. HEENT: Pupils are equal and reactive to light and accommodation. Extraocular movements are intact. The sclerae are anicteric. Neuro: Cranial nerves intact Lungs: Normal respiratory effort. No rales. No expiratory wheezing. Cardiac: Heart demonstrates an irregular rate and rhythm. Normal S1 and S2. No murmurs on examination. Pulses: The patient has palpable radial pulses bilaterally that are equal in intensity Extremities: Mild bilateral lower extremity edema. Erythematous rash on the left anterior tibial area improved Results & Data ([facility]) Vital Signs (Past 12 Hours) Vital Signs Temp Pulse Pulse Resp BP BP Pulse Ox 05/15/22 16:06 91 H 05/15/22 16:03 36.6 C 91 H 16 100/66 97 05/15/22 16:00 98 H 05/15/22 11:19 92 H 20 95/65 L 96 05/15/22 08:00 115 H 05/15/22 09:37 05/15/22 07:33 36.8 C 118 H 28 H 117/66 95 05/15/22 04:40 36.8 C 125 H 17 118/87 95 O2 Del Method 05/15/22 16:06 05/15/22 16:03 Room Air 05/15/22 16:00 05/15/22 11:19 Room Air 05/15/22 08:00 05/15/22 09:37 Room Air 05/15/22 07:33 Room Air 05/15/22 04:40 Room Air Laboratory Results Abnormal Lab Results 05/14/22 05/15/22 05/15/22 20:14 06:32 06:32 WBC RBC Hgb Hct MCV MCH MCHC RDW Std Deviation RDW Coeff of Moriah Plt Count MPV Immature Gran % (Auto) Neut % (Auto) Lymph % (Auto) [place] % (Auto) Eos % (Auto) Baso % (Auto) Neut # (Auto) Lymph # (Auto) [place] # (Auto) Eos # (Auto) Baso # (Auto) Immature Gran # (Auto) Absolute Nucleated RBC Nucleated RBC % (auto) Polychromasia Sodium 133 L Potassium 4.1 Chloride 103 Carbon Dioxide 23 Anion Gap 7 BUN 21 Creatinine 0.72 Est Cr Clr Drug Dosing 121.9 Est GFR ( Amer) 107.3 Est GFR (Non-Af Amer) 92.5 BUN/Creatinine Ratio 29.2 H Glucose 127 H POC Glucose 116 H Calcium 8.0 L Phosphorus 3.4 Magnesium 1.9 Total Bilirubin 1.7 H Direct Bilirubin 0.3 H AST 60 H ALT 39 Alkaline Phosphatase 125 H Total Protein 6.2 Albumin 2.8 L Nasal Screen MRSA (PCR) Random Vancomycin 8.7 L Digoxin 0.7 L Blood Type Antibody Screen 05/15/22 05/15/22 05/15/22 06:32 07:27 10:00 WBC 9.46 RBC 2.64 L Hgb 7.8 L Hct 22.7 L MCV 86.0 MCH 29.5 MCHC 34.4 RDW Std Deviation 52.5 H RDW Coeff of Moriah 17.9 H Plt Count 310 MPV 9.6 Immature Gran % (Auto) 1.3 Neut % (Auto) 80.5 Lymph % (Auto) 11.5 [place] % (Auto) 5.8 Eos % (Auto) 0.4 Baso % (Auto) 0.5 Neut # (Auto) 7.61 H Lymph # (Auto) 1.09 L [place] # (Auto) 0.55 Eos # (Auto) 0.04 Baso # (Auto) 0.05 Immature Gran # (Auto) 0.12 H Absolute Nucleated RBC 0.07 H Nucleated RBC % (auto) 0.7 Polychromasia 1+ Sodium Potassium Chloride Carbon Dioxide Anion Gap BUN Creatinine Est Cr Clr Drug Dosing Est GFR ( Amer) Est GFR (Non-Af Amer) BUN/Creatinine Ratio Glucose POC Glucose 151 H Calcium Phosphorus Magnesium Total Bilirubin Direct Bilirubin AST ALT Alkaline Phosphatase Total Protein Albumin Nasal Screen MRSA (PCR) Negative Random Vancomycin Digoxin Blood Type Antibody Screen 05/15/22 05/15/22 05/15/22 11:06 11:37 11:37 WBC RBC Hgb 7.7 L Hct 22.6 L MCV MCH MCHC RDW Std Deviation RDW Coeff of Moriah Plt Count MPV Immature Gran % (Auto) Neut % (Auto) Lymph % (Auto) [place] % (Auto) Eos % (Auto) Baso % (Auto) Neut # (Auto) Lymph # (Auto) [place] # (Auto) Eos # (Auto) Baso # (Auto) Immature Gran # (Auto) Absolute Nucleated RBC Nucleated RBC % (auto) Polychromasia Sodium Potassium Chloride Carbon Dioxide Anion Gap BUN Creatinine Est Cr Clr Drug Dosing Est GFR ( Amer) Est GFR (Non-Af Amer) BUN/Creatinine Ratio Glucose POC Glucose 124 H Calcium Phosphorus Magnesium Total Bilirubin Direct Bilirubin AST ALT Alkaline Phosphatase Total Protein Albumin Nasal Screen MRSA (PCR) Random Vancomycin Digoxin Blood Type AB Positive Antibody Screen NEGATIVE PG Care Time/CCT Total # of Minutes Spent Total Time Spent with Patient: Total time spent is greater than 50% in coordination of care (as documented) at patient's floor/unit and/or counseling patient: Coding Level of Care Code 33146 Subseq Hosp Care Lvl 2 Diagnoses Atrial fibrillation with rapid ventricular response I48.91 CAD (coronary artery disease) I25.10 Hyperlipidemia E78.5 Ischemic cardiomyopathy I25.5 AICD (automatic cardioverter/defibrillator) present Z95.810 LV (left ventricular) mural thrombus I51.3
[2022-05-15] MEDS: VANCOMYCIN HCL 1,500 MG in SODIUM CHLORIDE 0.9% 500 ML IV SCH (18:41)
[2022-05-15] MEDS: rOPINIRole HCL 0.25 MG TABLET PO SCH (18:42)
[2022-05-15] MEDS: GABAPENTIN 300 MG CAP PO SCH (18:45)
[2022-05-15] MEDS: TAMSULOSIN HCL 0.4 MG CAP PO SCH (20:27)
[2022-05-15] MEDS: SPIRONOLACTONE 25 MG TAB PO SCH (20:27)
[2022-05-15] MEDS: ESCITALOPRAM OXALATE 10 MG TAB PO SCH (20:27)
[2022-05-15 23:05] LABS: Hematocrit (blood only) 21.8 % (40.1-51.0); Hemoglobin 7.4 g/dl (14.0-18.0)
[2022-05-16] MEDS: ACETAMINOPHEN 325 MG TAB PO PRN ×2 (01:18→17:55)
[2022-05-16] MEDS: VANCOMYCIN HCL 1,500 MG in SODIUM CHLORIDE 0.9% 500 ML IV SCH ×2 (06:10→18:07)
[2022-05-16 06:14] LABS: Basophils # (auto) 0.05 K/uL (0-0.2); Basophils % (auto) 0.6 %; Eosinophils # (auto) 0.11 K/uL (0-0.50); Eosinophils % (auto) 1.3 %; Hematocrit (blood only) 23.6 % (40.1-51.0); Hemoglobin 7.7 g/dl (14.0-18.0); Immature Granulocytes # (auto) 0.07 K/uL (0.00-0.02); Immature Granulocytes % (auto) 0.8 %; Lymphocytes # (auto) 1.26 K/uL (1.2-3.4); Lymphocytes % (auto) 14.5 %; Mean Corpuscular Hemoglobin 29.5 pg (25.0-34.0); Mean Corpuscular Hgb Conc 32.6 g/dL (32.0-36.0); Mean Corpuscular Volume 90.4 fL (80.0-100.0); Mean Platelet Volume 9.8 fL (9.4-12.4); Monocytes # (auto) 0.65 K/uL (0.24-0.82); Monocytes % (auto) 7.5 %; Neutrophils # (auto) 6.52 K/uL (1.4-6.5); Neutrophils % (auto) 75.3 %; Nucleated RBC # (auto) 0.05 K/uL (0-0); Nucleated RBC % (auto) 0.6 %; Platelet Count 307 K/uL (130-400); RDW Coefficient of Variation 18.4 % (11.5-14.5); Red Blood Count 2.61 M/uL (4.63-6.08); White Blood Count 8.66 K/ul (4.8-10.8)
[2022-05-16 06:40] LABS: Acanthocytes 1+; Basophilic Stippling 1+; Echinocytes 1+; Polychromasia 1+; Toxic Granulation 1+; Toxic Vacuolation 1+
[2022-05-16 06:43] LABS: Albumin Level 2.8 gm/dl (3.4-5.0); BUN Creatinine Ratio 31.4 (10-20); Bilirubin Direct 0.3 mg/dl (0-0.2); Bilirubin,Total 1.6 mg/dl (0.2-1.0); Calcium 8.2 mg/dl (8.5-10.1); Creatinine Clr Calc Pharmacy 124.6 ml/min; Est GFR (African American) 108.5 ml/min; Est GFR (Non-African American) 93.6 ml/min; Phosphorus 3.5 mg/dl (2.5-4.9); Total Protein 6.2 gm/dl (6.0-8.3)
[2022-05-16 06:44] LABS: Iron 39 mcg/dl (35-175); Total Iron Binding Cap Calc 203 mcg/dl (250-450); Transferrin (FE) Percent Satur 19 % (20-50); Unsaturated Iron Binding Cap 164 mcg/dl (155-355)
[2022-05-16] MEDS: INSULIN ASPART PER UNIT SC SCH ×4 (08:25→20:37)
[2022-05-16] MEDS: METOPROLOL SUCC 50MG EXT REL TAB PO SCH (08:26)
[2022-05-16] MEDS: APIXABAN 5 MG TABLET PO SCH ×2 (08:26→20:11)
[2022-05-16] MEDS: allopurinoL 100 MG TAB PO SCH (08:26)
--- NOTE | 2022-05-16 10:23 | Hospitalist Progress Note ---
Date of Service May 16, 2022 Assessment & Plan (1) Ischemic cardiomyopathy: Plan: * Patient with an EF of less than 15% on recent echocardiogram. Patient with new firing of ICD. He had a similar episode while being induced for the initial procedure to correct his acute occlusion of the aortoiliac artery. * Digoxin has been reinstituted. Digoxin level 0.5. Rate control is been appropriate currently. * Continue his metoprolol at increased dose of 200mg daily * Continue apixaban. * Heart rates have been stable on current treatment plan. * Appreciate cardiology consultation. * Continue home spironolactone * Daily weights, strict I's and O's, low-sodium diet (2) Atrial fibrillation with rapid ventricular response: Plan: * Continue medications as above. * Eliquis on board for recent LV thrombus and iliac thombi but only x 3 months due to h/o ICH x 2 (3) Leukocytosis: Plan: * In the setting of possible LEFT lower extremity cellulitis. Initially placed on vancomycin alone and ceftriaxone added for UTI as well as cellulitis * White count has improved. LLE cellulitis is improving. * Urine cultures demonstrate mccollum sensitive Klebsiella pneumoniae. * Hopefully we can transition him to PO antibiotics for discharge soon. (4) Cellulitis of lower extremity: Plan: * Remains on Rocephin and Vancomycin * with recent vascular surgery and healing incisions * See above. (5) UTI (urinary tract infection) due to urinary indwelling Gimenez catheter: Plan: * Doing well with [place] catheter since removal of Gimenez catheter on admission * Antibiotics as above. (6) Acute occlusion of aortoiliac artery: Plan: * Wounds appear clean, dry, and intact. No warmth to touch. No discharge or drainage noted. * Persistent edema under the incision site with associated hematoma. * No change in exam findings from admission. * Continue to monitor for any signs or symptoms of bleeding or infection. * With pain in the legs-started on gabapentin as had increased confusion with Percocet and Tylenol not helping (7) LV (left ventricular) mural thrombus: Plan: * Anticoagulated on apixaban. * Plan only for 3 months of anticoagulation given history of recent intracranial hemorrhage (8) CAD (coronary artery disease): Plan: * Continue ASCVD Rx per outpatient course but all antiplatelets have been recently stopped due to need for Eliquis and h/o ICH * Continue metoprolol, statin (9) Anemia: Plan: hgb stable today at 7.7 had acute blood loss anemia last admission after developing hematomas at bilat groin surgical sites s/p Vascular surgery Iron studies here show transferrin saturation of 19%-add on oral ferrous sulfate Follow CBC in the morning transfuse if hgb< 7 (10) Depression: Plan: Stable Continue Lexapro (11) Subarachnoid hemorrhage: Plan: H/o SDH in 2020 and then found to have a trace SAH during recent admission for LV thrombus repeat head CT on 05/07 showed resolution of trace SAH repeat head CT if develops headache or focal neuro symptoms (12) Diabetes: Plan: HgbA1C only 6.1%, receiving minimal insulin here continue glucose checks, SSI (13) Elevated LFTs: Plan: Continue to trend downward Likely secondary to hepatic congestion from severe heart failure in the setting of recent rapid atrial fibrillation Follow LFTs in the morning Plan DVT prophylaxis-Eliquis Disposition-improving, plan to discharge to acute rehab when medically stable and accepted-possibly in the next 1 to 2 days Admission and Anticipated Discharge Date Admission Date: May 13, 2022 Supervising Physician Co-Signing Physician Notes LAWANDA Supervision Note: I did not personally see or examine the patient today, but I verified all b[place] points of LAWANDA Muniz's assessment and plan with the following exceptions/additions: Multiple additions made to note as above Subjective Patient was seen and evaluated by myself at bedside. He primarily complains of intermittent burning pain to the bilateral lower extremities. He reports the pain to the LEFT lower extremity is better today. He denies any fevers or chills. No nausea or vomiting. No headaches or dizziness. No chest pain or palpitations. He is much more awake and alert today. Patient is pleasantly confused yet very communicative and kind. We discussed changing his dose of gabapentin to help with his discomfort. We discussed avoiding narcotics if possible. We discussed possible transition to [facility]. We will wait to speak to the patient's daughter when she is available Review of Systems Review of Systems: A complete 10 point review of systems was reviewed with the patient with pertinent positives and negatives as per history of present illness. All else were negative. Physical Exam Physical Exam: VITAL SIGNS - Vital signs and nursing notes were reviewed. GENERAL - 71-year-old male appearing his stated age who is in no acute distress. Communicates well with provider and answers questions appropriately. NECK - Neck with FROM. LUNGS - Chest wall symmetric without accessory muscle use, intercostals retractions, or central cyanosis. Normal vesicular breath sounds CTA B/L. No wheezes, rales, or rhonchi appreciated. CARDIAC - RRR with S1/S2. No murmur, rubs, or gallops appreciated. No reproducible tenderness to palpation appreciated over the anterior chest wall. ABDOMEN - Abdominal contour protuberant without pulsations or visible masses. BS normoactive all four quadrants. No tenderness, palpable masses, hepatosplenomegaly, or ascites noted. EXTREMITIES - area of cellulitis appears improved. ecchymosis noted to the bilateral groins. Dressings were clean, dry, and intact. No erythema, warmth to touch, or discharge noted. Pretibial edema present bilaterally. Diminished DP pulses bilaterally. NEUROLOGIC - Cranial nerves II through XII grossly intact. Sensory intact to light touch throughout. PSYCH - Patient alert and oriented. Appears pleasantly confused, but attempts to change the subject when asked specific questions. He is very conversant otherwise and reports feeling better. Results & Data Results & Data ([facility]) Vital Signs (Past 12 Hours) Vital Signs Temp Pulse Resp BP BP Pulse Ox O2 Del Method 05/16/22 07:00 96 H 16 127/81 95 Room Air 05/16/22 03:39 36.9 C 85 20 108/78 97 Room Air 05/15/22 22:33 36.8 C 85 18 96/63 L 96 Room Air
[2022-05-16] MEDS: cefTRIAXone SODIUM 2,000 MG in DEXTROSE 5% 50 ML IV SCH (13:14)
[2022-05-16] MEDS: GABAPENTIN 100 MG CAP PO SCH ×3 (13:14→20:10)
--- NOTE | 2022-05-16 17:31 | Cardiology Progress Note ---
Date of Service May 16, 2022 Assessment & Plan (1) Atrial fibrillation with rapid ventricular response: (2) CAD (coronary artery disease): (3) Hyperlipidemia: (4) Ischemic cardiomyopathy: (5) AICD (automatic cardioverter/defibrillator) present: (6) LV (left ventricular) mural thrombus: Plan 1. Atrial fibrillation: I think his rates are reasonable if not optimal. However, we will see the full effect of his digoxin for another few days. I think it would be reasonable to discharge him on metoprolol succinate 200 mg daily digoxin 0.125 mg daily. He should follow-up in the clinic with his primary osteopathic resident for reassessment in about a week. Rates can be monitored with his implanted device. 2. Coronary artery disease: No current symptoms suggestive of coronary insufficiency or angina. 3. Ischemic cardiomyopathy: Currently on metoprolol succinate and spiron olactone. 4. Congestive heart failure: Severely reduced LV systolic function. He seems well compensated. 5. Elevated troponin: Not indicative of an acute coronary syndrome. 6. Left ventricular thrombus: Discovered at his last admission. Currently on anticoagulant therapy which should be continued for approximately 3 months. Cardiology will sign off at this point. Please contact the on-call osteopathic resident for additional questions or concerns. Admission and Anticipated Discharge Date Admission Date: May 13, 2022 Subjective This afternoon he claimed he feeling well. The left leg pain appears to be improving. He did some transferring with physical therapy earlier today. He is anxious for discharge. No palpitations, no shortness of breath. No chest pain. Review of Systems Review of Systems: Per HPI Physical Exam Physical Exam: The patient is alert and oriented. Mood and affect appeared normal. He answered all questions appropriately. HEENT: Pupils are equal and reactive to light and accommodation. Extraocular movements are intact. The sclerae are anicteric. Neuro: Cranial nerves intact Lungs: Normal respiratory effort. No rales. No expiratory wheezing. Cardiac: Heart demonstrates an irregular rate and rhythm. Normal S1 and S2. No murmurs on examination. Pulses: The patient has palpable radial pulses bilaterally that are equal in intensity Extremities: Mild bilateral lower extremity edema. Erythematous rash on the left anterior tibial area improved Results & Data ([facility]) Vital Signs (Past 12 Hours) Vital Signs Temp Pulse Pulse Resp BP Pulse Ox O2 Del Method 05/16/22 15:00 37.3 C 83 17 115/67 96 Room Air 05/16/22 08:00 93 H 05/16/22 11:30 37.3 C 101 H 18 102/65 95 Room Air 05/16/22 07:00 96 H 16 127/81 95 Room Air Laboratory Results Abnormal Lab Results 05/15/22 05/15/22 05/16/22 20:17 22:25 05:48 WBC 8.66 RBC 2.61 L Hgb 7.4 L 7.7 L Hct 21.8 L 23.6 L MCV 90.4 D MCH 29.5 MCHC 32.6 RDW Std Deviation 56.0 H RDW Coeff of Moriah 18.4 H Plt Count 307 MPV 9.8 Immature Gran % (Auto) 0.8 Neut % (Auto) 75.3 Lymph % (Auto) 14.5 Ness % (Auto) 7.5 Eos % (Auto) 1.3 Baso % (Auto) 0.6 Neut # (Auto) 6.52 H Lymph # (Auto) 1.26 Ness # (Auto) 0.65 Eos # (Auto) 0.11 Baso # (Auto) 0.05 Immature Gran # (Auto) 0.07 H Absolute Nucleated RBC 0.05 H Nucleated RBC % (auto) 0.6 Toxic Granulation 1+ Toxic Vacuolation 1+ Polychromasia 1+ Basophilic Stippling 1+ Echinocytes 1+ Acanthocytes (Spur) 1+ Sodium Potassium Chloride Carbon Dioxide Anion Gap BUN Creatinine Est Cr Clr Drug Dosing Est GFR ( Amer) Est GFR (Non-Af Amer) BUN/Creatinine Ratio Glucose POC Glucose 111 H Calcium Phosphorus Magnesium Iron TIBC Unsaturated IBC Transferrin % Sat Ferritin Total Bilirubin Direct Bilirubin AST ALT Alkaline Phosphatase Total Protein Albumin Digoxin 05/16/22 05/16/22 05/16/22 05:48 05:48 05:48 WBC RBC Hgb Hct MCV MCH MCHC RDW Std Deviation RDW Coeff of Moriah Plt Count MPV Immature Gran % (Auto) Neut % (Auto) Lymph % (Auto) Ness % (Auto) Eos % (Auto) Baso % (Auto) Neut # (Auto) Lymph # (Auto) Ness # (Auto) Eos # (Auto) Baso # (Auto) Immature Gran # (Auto) Absolute Nucleated RBC Nucleated RBC % (auto) Toxic Granulation Toxic Vacuolation Polychromasia Basophilic Stippling Echinocytes Acanthocytes (Spur) Sodium 136 Potassium 4.0 Chloride 105 Carbon Dioxide 25 Anion Gap 6 BUN 22 Creatinine 0.70 Est Cr Clr Drug Dosing 124.6 Est GFR ( Amer) 108.5 Est GFR (Non-Af Amer) 93.6 BUN/Creatinine Ratio 31.4 H Glucose 110 H POC Glucose Calcium 8.2 L Phosphorus 3.5 Magnesium 2.0 Iron 39 TIBC 203 L Unsaturated IBC 164 Transferrin % Sat 19 L Ferritin 1443.0 H Total Bilirubin 1.6 H Direct Bilirubin 0.3 H AST 56 H ALT 39 Alkaline Phosphatase 119 H Total Protein 6.2 Albumin 2.8 L Digoxin 0.5 L 05/16/22 05/16/22 05/16/22 07:20 11:13 16:08 WBC RBC Hgb Hct MCV MCH MCHC RDW Std Deviation RDW Coeff of Moriah Plt Count MPV Immature Gran % (Auto) Neut % (Auto) Lymph % (Auto) Ness % (Auto) Eos % (Auto) Baso % (Auto) Neut # (Auto) Lymph # (Auto) Ness # (Auto) Eos # (Auto) Baso # (Auto) Immature Gran # (Auto) Absolute Nucleated RBC Nucleated RBC % (auto) Toxic Granulation Toxic Vacuolation Polychromasia Basophilic Stippling Echinocytes Acanthocytes (Spur) Sodium Potassium Chloride Carbon Dioxide Anion Gap BUN Creatinine Est Cr Clr Drug Dosing Est GFR ( Amer) Est GFR (Non-Af Amer) BUN/Creatinine Ratio Glucose POC Glucose 91 101 H 105 H Calcium Phosphorus Magnesium Iron TIBC Unsaturated IBC Transferrin % Sat Ferritin Total Bilirubin Direct Bilirubin AST ALT Alkaline Phosphatase Total Protein Albumin Digoxin PG Care Time/CCT Total # of Minutes Spent Total Time Spent with Patient: Total time spent is greater than 50% in coordination of care (as documented) at patient's floor/unit and/or counseling patient: Coding Level of Care Code 70773 Subseq Hosp Care Lvl 2 Diagnoses Atrial fibrillation with rapid ventricular response I48.91 CAD (coronary artery disease) I25.10 Hyperlipidemia E78.5 Ischemic cardiomyopathy I25.5 AICD (automatic cardioverter/defibrillator) present Z95.810 LV (left ventricular) mural thrombus I51.3
[2022-05-16] MEDS: DIGOXIN 0.125 MG TAB PO SCH (17:48)
[2022-05-16] MEDS: ATORVASTATIN 40 MG TAB PO SCH (17:48)
[2022-05-16] MEDS: rOPINIRole HCL 0.25 MG TABLET PO SCH (19:15)
[2022-05-16] MEDS: SPIRONOLACTONE 25 MG TAB PO SCH (20:10)
[2022-05-16] MEDS: ESCITALOPRAM OXALATE 10 MG TAB PO SCH (20:11)
[2022-05-16] MEDS: TAMSULOSIN HCL 0.4 MG CAP PO SCH (20:11)
[2022-05-17] MEDS ORDERED: GABAPENTIN 100 MG CAP PO ONE (02:36)
[2022-05-17] MEDS ORDERED: VANCOMYCIN LEVEL ONE (05:30)
[2022-05-17] MEDS: VANCOMYCIN HCL 1,500 MG in SODIUM CHLORIDE 0.9% 250 ML IV SCH ×2 (06:20→17:05)
[2022-05-17 07:28] LABS: Basophils # (auto) 0.05 K/uL (0-0.2); Basophils % (auto) 0.5 %; Eosinophils # (auto) 0.07 K/uL (0-0.50); Eosinophils % (auto) 0.7 %; Hematocrit (blood only) 22.5 % (40.1-51.0); Hemoglobin 7.4 g/dl (14.0-18.0); Immature Granulocytes # (auto) 0.06 K/uL (0.00-0.02); Immature Granulocytes % (auto) 0.6 %; Lymphocytes # (auto) 1.41 K/uL (1.2-3.4); Mean Corpuscular Hemoglobin 29.5 pg (25.0-34.0); Mean Corpuscular Hgb Conc 32.9 g/dL (32.0-36.0); Mean Corpuscular Volume 89.6 fL (80.0-100.0); Mean Platelet Volume 10.2 fL (9.4-12.4); Monocytes # (auto) 0.78 K/uL (0.24-0.82); Monocytes % (auto) 7.7 %; Neutrophils % (auto) 76.5 %; Nucleated RBC # (auto) 0.03 K/uL (0-0); Nucleated RBC % (auto) 0.3 %; Platelet Count 309 K/uL (130-400); RDW Coefficient of Variation 18.3 % (11.5-14.5); RDW Standard Deviation 56.4 fL (36.4-46.3); Red Blood Count 2.51 M/uL (4.63-6.08); White Blood Count 10.07 K/ul (4.8-10.8)
[2022-05-17] MEDS: INSULIN ASPART PER UNIT SC SCH ×4 (07:47→20:11)
[2022-05-17 08:01] LABS: Ovalocytes 1+; Polychromasia 2+; Target Cells 1+
[2022-05-17 08:04] LABS: Albumin Level 2.7 gm/dl (3.4-5.0); BUN Creatinine Ratio 29.5 (10-20); Bilirubin Direct 0.3 mg/dl (0-0.2); Bilirubin,Total 1.5 mg/dl (0.2-1.0); Calcium 7.9 mg/dl (8.5-10.1); Creatinine Clr Calc Pharmacy 142.1 ml/min; Est GFR (African American) 114.8 ml/min; Est GFR (Non-African American) 99.1 ml/min; Magnesium 1.7 mg/dl (1.7-2.4); Phosphorus 3.1 mg/dl (2.5-4.9); Potassium 4.1 mmol/L (3.5-5.1)
[2022-05-17] MEDS: METOPROLOL SUCC 50MG EXT REL TAB PO SCH (08:18)
[2022-05-17] MEDS: GABAPENTIN 100 MG CAP PO SCH ×3 (08:18→20:54)
[2022-05-17] MEDS: allopurinoL 100 MG TAB PO SCH (08:18)
[2022-05-17] MEDS: APIXABAN 5 MG TABLET PO SCH ×2 (08:18→20:54)
[2022-05-17] MEDS: FERROUS SULFATE 325 MG TAB PO SCH ×2 (08:18→16:30)
[2022-05-17] MEDS: ACETAMINOPHEN 325 MG TAB PO PRN (08:45)
[2022-05-17] MEDS: MAGNESIUM SULFATE / D5W 1 GM/100 ML BAG IV SCH ×2 (09:36→11:36)
[2022-05-17] MEDS: cefTRIAXone SODIUM 2,000 MG in DEXTROSE 5% 50 ML IV SCH (11:54)
--- NOTE | 2022-05-17 13:12 | Pharmacy Report ---
Pharmacy PK ABX Note - Date of Service May 17, 2022 - Assessment and Plan Assessment 71 year old M receiving Vancomycin and Ceftriaxone for treatment of skin soft tissue infection. * Recent admitted at [facility] from 04/30/22-05/09/22 and underwent vascular surgery to [facility] on 05/02/22. * Afebrile. Leukocytosis improved: 22.6k --> 14.2k --> 9.5k. * Blood cx w/ no growth to date. Urine cx with K. pneumoniae sensitive to ceftriaxone. Per provider, vanc should continue to cover for MRSA cellulitis. Plan Vancomycin * Current regimen: 1500 mg IV every 12 hours * Random level obtained 05/17/22 resulted as 12.1 mcg/mL. This is therapeutic * No change in regimen at this time. Predicted AUC at steady state: 426 mg/L.hr * Re-assess need for another level if therapy to continue past current stop date of 1/3 after AM dose or as clinically indicated. Ceftriaxone * 2000 mg IV every 24 hours Pharmacy will continue to follow and will adjust dose/frequency as necessary. Thank you. Pharmacy has transitioned to AUC monitoring for vancomycin. AUC/ADENIKE is the preferred PK/PD target and is associated with decreased risk of nephrotoxicity compared to traditional trough targets.
--- NOTE | 2022-05-17 14:33 | Hospitalist Progress Note ---
Date of Service May 17, 2022 Assessment & Plan (1) Ischemic cardiomyopathy: Plan: Chronic systolic CHF Patient with an EF of less than 15% on recent echocardiogram. Patient with new firing of ICD. He had a similar episode while being induced for the initial procedure to correct his acute occlusion of the aortoiliac artery. Digoxin has been reinstituted. Digoxin level 0.5. Rate control improved since admission Continue his metoprolol at increased dose of 200mg daily Continue apixaban. Appreciate cardiology consultation. Continue home spironolactone Daily weights, strict I's and O's, low-sodium diet (2) Atrial fibrillation with rapid ventricular response: Plan: Continue metoprolol and digoxin which were reinstituted this admission Eliquis on board for recent LV thrombus and iliac thrombi but only x 3 months due to h/o ICH x 2 Follow on telemetry (3) Leukocytosis: Plan: In the setting of possible LEFT lower extremity cellulitis. Initially placed on vancomycin alone and ceftriaxone added for UTI as well as cellulitis Leukocytosis has resolved and LLE cellulitis is improving. Urine cultures demonstrate mccollum sensitive Klebsiella pneumoniae. We will plan to transition him to PO antibiotics upon discharge for UTI and cellulitis to total 7 to 10 days of treatment (4) Cellulitis of lower extremity: Plan: Remains on Rocephin and Vancomycin with recent vascular surgery and healing incisions Improving (5) UTI (urinary tract infection) due to urinary indwelling Gimenez catheter: Plan: Presented with UTI in the setting of Gimenez catheter placed for urinary retention during last admission Now status post removal of Gimenez catheter and bladder scans are minimal for post void residual Antibiotics as above for Klebsiella pneumoniae UTI (6) Acute occlusion of aortoiliac artery: Plan: During last admission, was found to have acute thrombus in aorta and bilateral iliac arteries secondary to LV thrombus with embolism Underwent urgent vascular surgery Wounds in bilateral groins remain with underlying hematoma and edema, ecchymosis, some serous and bloody drainage Saucier are in place bilaterally-would keep in place until removed by vascular surgery-we will have vascular surgery follow-up next week when available Pulses in feet are present with Doppler but difficult to palpate however both feet are warm and with good cap refill With pain in the legs-started on gabapentin 100 Mg p.o. 3 times daily which is helping He had increased confusion with a trial of Percocet and Tylenol not helping enough -Follow-up with vascular surgery -Continue Eliquis (7) LV (left ventricular) mural thrombus: Plan: Anticoagulated on apixaban. Plan only for 3 months of anticoagulation given history of recent intracranial hemorrhage (8) CAD (coronary artery disease): Plan: Continue ASCVD Rx per outpatient course but all antiplatelets have been recently stopped due to need for Eliquis and h/o ICH Continue metoprolol, statin (9) Anemia: Plan: hgb stable today at 7.74 had acute blood loss anemia last admission after developing hematomas at bilat groin surgical sites s/p Vascular surgery Iron studies here show transferrin saturation of 19%-added on oral ferrous sulfate Follow CBC in the morning transfuse if hgb< 7 (10) Depression: Plan: Stable, has chronic flat affect Continue Lexapro (11) Subarachnoid hemorrhage: Plan: H/o SDH in 2020 and then found to have a trace SAH during recent admission for LV thrombus repeat head CT on 05/07 showed resolution of trace SAH repeat head CT if develops headache or focal neuro symptoms (12) Diabetes: Plan: HgbA1C only 6.1%, receiving minimal insulin here continue glucose checks, SSI (13) Elevated LFTs: Plan: Continue to trend downward Likely secondary to hepatic congestion from severe heart failure in the setting of recent rapid atrial fibrillation Follow LFTs in the morning Plan DVT prophylaxis-Eliquis Disposition-improving slowly, plan to discharge to acute rehab on Thursday or Thursday when insurance authorization can be obtained when his insurance company is open after the holiday weekend Admission and Anticipated Discharge Date Admission Date: May 13, 2022 Results & Data Results & Data ([facility]) Vital Signs (Past 12 Hours) Vital Signs Temp Pulse Pulse Resp BP Pulse Ox O2 Del Method 05/17/22 12:34 36.8 C 89 20 134/85 97 Room Air 05/17/22 07:58 36.7 C 93 H 18 122/74 96 Room Air 05/17/22 07:00 93 H 05/17/22 03:54 37.5 C 97 H 24 115/58 L 97 Room Air PG Care Time/CCT Total # of Minutes Spent Total Time Spent with Patient: Total time spent is greater than 50% in coordination of care (as documented) at patient's floor/unit and/or counseling patient: Coding Level of Care Code 36879 Subseq Hosp Care Lvl 3 Diagnoses Ischemic cardiomyopathy I25.5 Atrial fibrillation with rapid ventricular response I48.91 Leukocytosis D72.829 Cellulitis of lower extremity L03.119 UTI (urinary tract infection) due to urinary indwelling Gimenez catheter T83.511A; N39.0 Acute occlusion of aortoiliac artery I74.09 LV (left ventricular) mural thrombus I51.3 CAD (coronary artery disease) I25.10 Anemia D64.9 Depression F32.A Subarachnoid hemorrhage I60.9 Diabetes E11.9 Elevated LFTs R79.89
[2022-05-17] MEDS: ACETAMINOPHEN 500 MG TAB PO SCH ×2 (15:38→22:44)
[2022-05-17] MEDS: DIGOXIN 0.125 MG TAB PO SCH (15:39)
[2022-05-17] MEDS: ATORVASTATIN 40 MG TAB PO SCH (15:39)
[2022-05-17] MEDS: rOPINIRole HCL 0.25 MG TABLET PO SCH (19:44)
[2022-05-17] MEDS: ESCITALOPRAM OXALATE 10 MG TAB PO SCH (20:54)
[2022-05-17] MEDS: SPIRONOLACTONE 25 MG TAB PO SCH (20:55)
[2022-05-17] MEDS: TAMSULOSIN HCL 0.4 MG CAP PO SCH (20:55)
[2022-05-18] MEDS ORDERED: GABAPENTIN 100 MG CAP PO ONE (04:53)
[2022-05-18] MEDS: VANCOMYCIN HCL 1,500 MG in SODIUM CHLORIDE 0.9% 250 ML IV SCH (05:44)
[2022-05-18] MEDS: ACETAMINOPHEN 500 MG TAB PO SCH ×3 (05:48→22:49)
[2022-05-18] MEDS: INSULIN ASPART PER UNIT SC SCH ×4 (08:12→20:48)
[2022-05-18] MEDS: METOPROLOL SUCC 50MG EXT REL TAB PO SCH (08:12)
[2022-05-18] MEDS: FERROUS SULFATE 325 MG TAB PO SCH ×2 (08:12→16:21)
[2022-05-18] MEDS: APIXABAN 5 MG TABLET PO SCH ×2 (08:13→20:16)
[2022-05-18] MEDS: allopurinoL 100 MG TAB PO SCH (08:13)
[2022-05-18] MEDS: GABAPENTIN 100 MG CAP PO SCH ×3 (08:13→20:16)
[2022-05-18 08:50] LABS: Basophils # (auto) 0.04 K/uL (0-0.2); Basophils % (auto) 0.4 %; Eosinophils # (auto) 0.07 K/uL (0-0.50); Eosinophils % (auto) 0.7 %; Hematocrit (blood only) 23.3 % (40.1-51.0); Hemoglobin 7.8 g/dl (14.0-18.0); Immature Granulocytes # (auto) 0.05 K/uL (0.00-0.02); Immature Granulocytes % (auto) 0.5 %; Lymphocytes # (auto) 1.11 K/uL (1.2-3.4); Lymphocytes % (auto) 10.9 %; Mean Corpuscular Hemoglobin 29.3 pg (25.0-34.0); Mean Corpuscular Hgb Conc 33.5 g/dL (32.0-36.0); Mean Corpuscular Volume 87.6 fL (80.0-100.0); Mean Platelet Volume 10.1 fL (9.4-12.4); Monocytes # (auto) 0.59 K/uL (0.24-0.82); Monocytes % (auto) 5.8 %; Neutrophils % (auto) 81.7 %; Nucleated RBC # (auto) 0.02 K/uL (0-0); Nucleated RBC % (auto) 0.2 %; Platelet Count 323 K/uL (130-400); RDW Coefficient of Variation 18.2 % (11.5-14.5); RDW Standard Deviation 55.5 fL (36.4-46.3); Red Blood Count 2.66 M/uL (4.63-6.08); White Blood Count 10.16 K/ul (4.8-10.8)
[2022-05-18 09:14] LABS: Albumin Level 2.7 gm/dl (3.4-5.0); Bilirubin Direct 0.4 mg/dl (0-0.2); Bilirubin,Total 1.7 mg/dl (0.2-1.0); Calcium 8.1 mg/dl (8.5-10.1); Creatinine Clr Calc Pharmacy 134.9 ml/min; Est GFR (African American) 112.6 ml/min; Est GFR (Non-African American) 97.1 ml/min; Magnesium 1.8 mg/dl (1.7-2.4); Phosphorus 3.3 mg/dl (2.5-4.9); Potassium 3.9 mmol/L (3.5-5.1); Total Protein 6.2 gm/dl (6.0-8.3)
[2022-05-18 09:44] LABS: Basophilic Stippling 1+; Polychromasia 1+
[2022-05-18] MEDS: cefTRIAXone SODIUM 2,000 MG in DEXTROSE 5% 50 ML IV SCH (11:13)
[2022-05-18] MEDS ORDERED: PIPERACILLIN/TAZOBACTAM 4.5 GM in DEXTROSE 5% 100 ML IV ONE (13:00)
[2022-05-18] MEDS ORDERED: Nursing to Pharmacy Communication SCH (14:00)
[2022-05-18] MEDS: DAPTOmycin 375 MG in SYRINGE 0 ML IV SCH (14:13)
--- NOTE | 2022-05-18 15:08 | Hospitalist Progress Note ---
Date of Service May 18, 2022 Assessment & Plan (1) Drainage from surgical wound: Plan: The nurse who happens has been taking care of the patient for the last 3 days neuro no Tuesdays significant more serosanguineous discharge bilaterally from surgical wounds on the inner thigh close to inguinal area, The discharge looks clear, the area does not look infected, is not tender or and actually the edema is regressing, possibly early serosanguineous discharge from the wound/hematoma, no leukocytosis or shift to the left, patient is not tachycardic, vitals are stable -However given patient has multiple risk factors and is immunocompromise I escalated antibiotic treatment to daptomycin and Zosyn, I will stop vancomycin and Rocephin, proceed with culture, I will proceed with CT of lower extremities bilaterally -His surgeon is on vacation and coming back on Thursday [facility] tomorrow (2) Cellulitis of lower extremity: Plan: The plan as mentioned above (3) Atrial fibrillation with rapid ventricular response: Plan: Currently the rate is controlled is in the 80s Continue metoprolol and digoxin which were reinstituted this admission Eliquis on board for recent LV thrombus and iliac thrombi but only x 3 months due to h/o ICH x 2 Follow on telemetry (4) Ischemic cardiomyopathy: Plan: Chronic systolic CHF On exam patient patient looks well compensated heart failure no significant swelling of the lower extremities lungs are clear to auscultation Patient with an EF of less than 15% on recent echocardiogram. Patient with new firing of ICD. He had a similar episode while being induced for the initial procedure to correct his acute occlusion of the aortoiliac artery. Digoxin has been reinstituted. Digoxin level 0.5. Rate control improved since admission Continue his metoprolol at increased dose of 200mg daily Continue apixaban. Appreciate cardiology consultation. Continue home spironolactone Daily weights, strict I's and O's, low-sodium diet (5) Leukocytosis: Plan: Has resolved, multifactorial, including UTI with Klebsiella, extensive hematoma which is regressing, (6) UTI (urinary tract infection) due to urinary indwelling Gimenez catheter: Plan: Presented with UTI in the setting of Gimenez catheter placed for urinary retention during last admission Now status post removal of Gimenez catheter and bladder scans are minimal for post void residual Antibiotics as above for Klebsiella pneumoniae UTI (7) Acute occlusion of aortoiliac artery: Plan: During last admission, was found to have acute thrombus in aorta and bilateral iliac arteries secondary to LV thrombus with embolism Underwent urgent vascular surgery Wounds in bilateral groins remain with underlying hematoma and edema, ecchymosis, some serous and bloody drainage Bryant are in place bilaterally-would keep in place until removed by vascular surgery-we will have vascular surgery follow-up next week when available Pulses in feet are present with Doppler but difficult to palpate however both feet are warm and with good cap refill With pain in the legs-started on gabapentin 100 Mg p.o. 3 times daily which is helping He had increased confusion with a trial of Percocet and Tylenol not helping enough -Follow-up with vascular surgery -Continue Eliquis (8) LV (left ventricular) mural thrombus: Plan: Anticoagulated on apixaban. Plan only for 3 months of anticoagulation given history of recent intracranial hemorrhage (9) CAD (coronary artery disease): Plan: Continue ASCVD Rx per outpatient course but all antiplatelets have been recently stopped due to need for Eliquis and h/o ICH Continue metoprolol, statin (10) Anemia: Plan: hgb stable today at 7.74 had acute blood loss anemia last admission after developing hematomas at bilat groin surgical sites s/p Vascular surgery Iron studies here show transferrin saturation of 19%-added on oral ferrous sulfate Follow CBC in the morning transfuse if hgb< 7 (11) Depression: Plan: Stable, has chronic flat affect Continue Lexapro (12) Subarachnoid hemorrhage: Plan: H/o SDH in 2020 and then found to have a trace SAH during recent admission for LV thrombus repeat head CT on 05/07 showed resolution of trace SAH repeat head CT if develops headache or focal neuro symptoms (13) Diabetes: Plan: HgbA1C only 6.1%, receiving minimal insulin here continue glucose checks, SSI (14) Elevated LFTs: Plan: Continue to trend downward Likely secondary to hepatic congestion from severe heart failure in the setting of recent rapid atrial fibrillation Follow LFTs in the morning Plan DVT prophylaxis-Eliquis Disposition-improving slowly, plan to discharge to acute rehab on Thursday or Thursday when insurance authorization can be obtained when his insurance company is open after the holiday weekend Admission and Anticipated Discharge Date Admission Date: May 13, 2022 Subjective The patient is a 71-year-old [place] male with a past medical history significant for obesity, intracranial bleed, complicated with right hemiparesis peripheral arterial disease diabetes hypertension hyperlipidemia diastolic heart failure with EF of 15% status post ICD who initially admitted to this facility in April due to acute thrombotic event (most likely because patient was not on anticoagulation due to subdural hematoma) requiring bilateral iliac and femoral embolectomy Left Common Femoral Artery Endarterectomy with Bovine Patch, Right Common Artery Patch Angioplasty(Left) with Aaron Sharp on 05/02/2022. Complicated with extensive hematoma of bilateral thigh required multiple transfusion, urinary retention, A. fib with RVR, acute kidney injury possibly secondary to ATN due to hypotension and evidence of left ventricular thrombus. The patient is discharged to rehab facility, however couple days later on presented to the hospital with A. fib with RVR Today, patient has significant discharge from both incision sites bilaterally and his thigh close to his groin according to the nurse, however the area does not seem tender or more erythematous and actually looks better in comparison to a few days, patient does not have leukocytosis or fever or tachycardia Physical Exam Physical Exam: The patient is alert and oriented. Mood and affect appeared normal. He answered all questions appropriately. HEENT: Pupils are equal and reactive to light and accommodation. Extraocular movements are intact. The sclerae are anicteric. Neuro: Cranial nerves intact Lungs: Normal respiratory effort. No rales. No expiratory wheezing. Cardiac: Heart demonstrates an irregular rate and rhythm. Normal S1 and S2. No murmurs on examination. Pulses: The patient has palpable radial pulses bilaterally that are equal in intensity Extremities: Mild bilateral lower extremity edema. Erythematous rash on the left anterior tibial area improved Constitutional: WD/WN, vitals as above Eyes: EOM intact bilaterally; no conjunctival abnormality ENMT: external ear and nose normal, oropharynx normal Neck: trachea midline, no thyromegaly normal visual inspection Respiratory: normal respiratory effort, lungs clear to auscultation no respiratory distress Cardiovascular: Rate/Rhythm: + tachycardic and + irregularly irregular Extremities: no edema Gastrointestinal (Abdomen): Inspection/Auscultation: abdomen normal to inspection; abdomen not distended Musculoskeletal: no cyanosis or clubbing, extremities motor strength 5/5 Skin: no rashes, warm and dry Neurologic: moves all extremities and awake Psychiatric: Orientation: alert, oriented to person and cooperative Results & Data Results & Data ([facility]) Vital Signs (Past 12 Hours) Vital Signs Temp Pulse Pulse Resp BP Pulse Ox O2 Del Method 05/18/22 11:16 37.1 C 88 20 107/75 98 Room Air 05/18/22 08:00 36.8 C 101 H 18 99/68 L 96 Room Air 05/18/22 07:00 119 H PG Care Time/CCT Total # of Minutes Spent Total Time Spent with Patient: Total time spent is greater than 50% in coordination of care (as documented) at patient's floor/unit and/or counseling patient: Coding Level of Care Code 89949 Subseq Hosp Care Lvl 3 Diagnoses Drainage from surgical wound Cellulitis of lower extremity L03.119 Atrial fibrillation with rapid ventricular response I48.91 Ischemic cardiomyopathy I25.5 Leukocytosis D72.829 UTI (urinary tract infection) due to urinary indwelling Gimenez catheter T83.511A; N39.0 Acute occlusion of aortoiliac artery I74.09 LV (left ventricular) mural thrombus I51.3 CAD (coronary artery disease) I25.10 Anemia D64.9 Depression F32.A Subarachnoid hemorrhage I60.9 Diabetes E11.9 Elevated LFTs R79.89
[2022-05-18] MEDS: ATORVASTATIN 40 MG TAB PO SCH (15:49)
[2022-05-18] MEDS: DIGOXIN 0.125 MG TAB PO SCH (15:50)
[2022-05-18] MEDS ORDERED: OPTIRAY 350 100ml IV ONE (16:56)
[2022-05-18] MEDS: PIPERACILLIN/TAZOBACTAM 4.5 GM in DEXTROSE 5% 100 ML IV SCH (17:38)
--- NOTE | 2022-05-18 17:43 | CT Scan Report ---
CT femur LT w con, CT femur RT w con HISTORY: Bilateral leg swelling. Evaluate for abscess/hematoma or infected hematoma TECHNIQUE: Multiaxial CT images of the right and left femur were performed following the intravenous administration of 90 cc of Optiray 350. Sagittal and coronal reformations were also obtained. COMPARISON STUDY: Pelvis CT 05/05/2022. Bilateral lower extremity CTA 04/30/2022. FINDINGS: No fracture or dislocation within the right or left femur. Skin thickening and subcutaneous edema seen within the bilateral thighs. No change in the focal occlusion within the proximal to mid bilateral superficial femoral arteries with distal reconstitution. There are skin felicia within the proximal anterior thighs. Small amount of subcutaneous gas deep to the right skin felicia which has s lightly improved. Subcutaneous gas within the left anterior thigh has resolved. Decreased density in the bilateral anterior thigh hematomas. This is consistent with expected evolution. No active arteria l extravasation identified. The right anterior thigh hematoma involves the right sartorius muscle and has slightly increased in size in the interval. The left anterior thigh hematomas has also slightly increased in size in the interval. Both of these hematomas again surround the common femoral and supe rficial femoral arteries. Small lipoma within the left vastus lateralis muscle measuring 3.1 cm. IMPRESSION: 1. Slight increase in size in the bilateral anterior thigh/groin hematomas compared to the prior stud y. However, these hematomas demonstrate decreased density consistent with expected evolution. Seconda ry infection would be impossible to exclude by imaging but is considered less likely. 2. Redemonstration of the occluded bilateral proximal to mid superficial femoral arteries with distal reconstitution. ACT 112: Negative or not required by law. Electronically signed by: Aris Clayton M.D. 05/18/2022 5:41 PM
[2022-05-18] MEDS: rOPINIRole HCL 0.25 MG TABLET PO SCH (19:27)
[2022-05-18] MEDS: ESCITALOPRAM OXALATE 10 MG TAB PO SCH (20:16)
[2022-05-18] MEDS: TAMSULOSIN HCL 0.4 MG CAP PO SCH (20:17)
[2022-05-18] MEDS: SPIRONOLACTONE 25 MG TAB PO SCH (20:17)
[2022-05-19] MEDS: PIPERACILLIN/TAZOBACTAM 4.5 GM in DEXTROSE 5% 100 ML IV SCH ×3 (02:10→21:06)
[2022-05-19] MEDS ORDERED: GABAPENTIN 100 MG CAP PO ONE (04:07)
[2022-05-19] MEDS ORDERED: HYDROmorphone INJ 0.5 MG/0.5 ML SYR IV STA (05:12)
[2022-05-19] MEDS: INSULIN ASPART PER UNIT SC SCH ×4 (08:01→21:25)
[2022-05-19] MEDS: FERROUS SULFATE 325 MG TAB PO SCH ×2 (08:05→17:46)
[2022-05-19] MEDS: APIXABAN 5 MG TABLET PO SCH (08:06)
[2022-05-19] MEDS: allopurinoL 100 MG TAB PO SCH (08:06)
[2022-05-19] MEDS: GABAPENTIN 100 MG CAP PO SCH ×3 (08:06→21:07)
[2022-05-19] MEDS: ACETAMINOPHEN 500 MG TAB PO SCH ×3 (08:06→23:55)
[2022-05-19] MEDS: METOPROLOL SUCC 50MG EXT REL TAB PO SCH (09:00)
[2022-05-19 09:15] LABS: Basophils # (auto) 0.05 K/uL (0-0.2); Basophils % (auto) 0.5 %; Eosinophils # (auto) 0.06 K/uL (0-0.50); Eosinophils % (auto) 0.6 %; Hematocrit (blood only) 23.8 % (40.1-51.0); Hemoglobin 7.8 g/dl (14.0-18.0); Immature Granulocytes # (auto) 0.07 K/uL (0.00-0.02); Immature Granulocytes % (auto) 0.7 %; Lymphocytes # (auto) 1.36 K/uL (1.2-3.4); Lymphocytes % (auto) 13.9 %; Mean Corpuscular Hemoglobin 29.4 pg (25.0-34.0); Mean Corpuscular Hgb Conc 32.8 g/dL (32.0-36.0); Mean Corpuscular Volume 89.8 fL (80.0-100.0); Mean Platelet Volume 9.8 fL (9.4-12.4); Monocytes % (auto) 6.2 %; Neutrophils # (auto) 7.61 K/uL (1.4-6.5); Neutrophils % (auto) 78.1 %; Platelet Count 342 K/uL (130-400); RDW Coefficient of Variation 18.6 % (11.5-14.5); RDW Standard Deviation 59.2 fL (36.4-46.3); Red Blood Count 2.65 M/uL (4.63-6.08); White Blood Count 9.75 K/ul (4.8-10.8)
--- NOTE | 2022-05-19 09:23 | Critical Care Consultation ---
Date of Consultation May 19, 2022 History of Present Illness Attending Physician: Ren Fermin MD History of Present Illness 71-year-old male presented to the hospital with Natalia lentz RVR and was admitted on the floor for that Past medical history: Systolic CHF with EF 15%, Jonas. fib along with apical thrombus on apixaban, history of subdural hematoma, peripheral vascular disease s/p bilateral iliac and femoral embolectomy 05/02/2022, coronary artery disease, BPH Patient was transferred to the ICU as the incision site was bleeding profusely and patient's blood pressure was lower than usual At the time of examination in the ICU patient's systolic blood pressure was 116, diastolic 76. His heart rate was ranging between mid to high 100s to low 110s. He denied any dizziness, no shortness of breath, no nausea vomiting Denied any abdominal pain. No groin pain. Denied any leg pain. Occasionally does get tingling sensation in his feet. No fever or chills Social history: Non-smoker, no alcohol use Allergies Allergy/AdvReac Type Severity Reaction Status Date / Time No Known Allergies Allergy Verified 04/30/22 15:38 Home Medications Medication Instructions Recorded Confirmed Type furosemide 20 mg tablet 10 mg PO DAILY PRN edema #90 tabs 12/13/21 04/30/22 Rx metformin 500 mg tablet 500 mg PO BID #180 tabs 12/13/21 04/30/22 Rx atorvastatin 80 mg tablet 80 mg PO QPM 01/01/22 04/30/22 History escitalopram oxalate 10 mg tablet 10 mg PO HS 01/01/22 04/30/22 History (Lexapro) spironolactone 25 mg tablet 25 mg PO QPM 01/01/22 04/30/22 History allopurinol 100 mg tablet 100 mg PO DAILY 03/21/22 04/30/22 History metoprolol succinate 25 mg 25 mg PO DAILY #30 tabs 03/21/22 04/30/22 Rx tablet,extended release 24 hr metoprolol succinate 50 mg 100 mg PO QAM 30 days #60 tabs 03/21/22 04/30/22 Rx tablet,extended release 24 hr ropinirole 0.25 mg tablet 0.5 mg PO HS 04/30/22 04/30/22 History apixaban 5 mg tablet 5 mg PO Q12H #60 tabs 05/09/22 Rx ferrous gluconate 324 mg (37.5 mg 324 mg PO BID #90 tabs 05/09/22 Rx iron) tablet gabapentin 300 mg capsule 300 mg PO PM #20 caps 05/09/22 Rx loperamide 2 mg capsule 2 mg PO Q4H PRN loose stool #20 05/09/22 Rx caps oxycodone-acetaminophen 10 mg-325 1 tab PO Q4H PRN pain #20 tabs 05/09/22 Rx mg tablet oxycodone-acetaminophen 5 mg-325 1 tab PO Q4H PRN pain #20 tabs 05/09/22 Rx mg tablet (Percocet) ropinirole 0.25 mg tablet 0.5 mg PO TODAY@2000 #14 tabs 05/09/22 Rx tamsulosin 0.4 mg capsule 0.4 mg PO HS #20 caps 05/09/22 Rx Patient History Medical History (Updated 05/18/22 @ 15:09 by Ren Fermin MD) Acute CVA (cerebrovascular accident) Anticoagulant long-term use Atrial fibrillation with rapid ventricular response CAD (coronary artery disease) Chronic systolic CHF (congestive heart failure) Depression Diabetes Elevated troponin Gout Hx of subdural hematoma Hyperlipidemia Implantable cardioverter-defibrillator (ICD) discharge Ischemic cardiomyopathy Hx AL S/P PCI and CABG LV (left ventricular) mural thrombus Paroxysmal atrial fibrillation Restless leg syndrome Urinary retention Surgical History (Updated 05/17/22 @ 20:28 by Debra Rebollar MD) AICD (automatic cardioverter/defibrillator) present H/O heart bypass surgery Family History Brother Diabetes Mother Hypertension Father Stroke Denies family history of Ovarian cancer Prostate cancer Myocardial infarction Breast cancer Colorectal cancer Social History Smoking Status: Never smoker Second Hand Exposure: No; Hx Alcohol Use: No Hx Substance Use: No Preferred Language: Japanese 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: Effective Food Server Required: No Beliefs That Will Affect Care: None Current Living Situation: Family Current Living Situation Comment: lives with his and their son but came to use from [employer] current occupational status: retired Feels Safe at Home: Yes Physical Activity Frequency: 1-2 Times per Week Seatbelt Use: always Assistive Devices: Glasses and Walker Review of Systems Review of Systems: All systems reviewed & are unremarkable except as noted in HPI & below Physical Exam Physical Exam: Constitutional: No acute distress HEENT: EOMI, PERRLA Respiratory system: Decreased air entry bilaterally, no wheeze, rhonchi, no crackles CVS: S1-S2 positive, no murmurs or gallops, distant heart sounds Abdomen: Soft, nontender, nondistended, positive bowel sounds x4 Extremities: +2 pulses bilaterally radialis, decreased pulses bilateral dorsalis pedis, no cyanosis, no edema, left groin resolving hematoma, right groin bandage in place with bright red oozing Neuro: Awake alert oriented x3 Psych: Normal mood and affect G/U: No Gimenez Skin: no rashes, warm and dry Lymphatic: no cervical or axillary lymphadenopathy Results & Data Results & Data ([facility]) Vital Signs (Past 12 Hours) Vital Signs Temp Pulse Pulse Resp BP Pulse Ox O2 Del Method 05/19/22 07:01 36.7 C 95 H 18 97/69 L 92 Room Air 05/19/22 06:54 99 H 05/19/22 04:12 36.6 C 88 18 98/59 L 96 Room Air 05/19/22 00:17 37.3 C 102 H 18 99/72 L 95 Room Air 05/18/22 22:04 87 Laboratory Results 05/18/22 08:19 05/18/22 08:19 Medications Administered Reason Critically Ill: 71yo Male with PMH afib, Hx hemorrhagic stroke 6 months ago, CAD, HLD, DM2, cardiomyopathy, ICD placement here for acute occlusion of left aortoiliac artery requiring thrombectomy with vascular surgery with admitted to hospital with Natalia lentz with RVR. Patient was found to be tachycardic with bleeding from the incision site. ICU was consulted because of borderline hypotension and tachycardia Neuro - [facility] ICU: NEGATIVE Sedation: none Analgesia: tylenol, morphine --Subdural hematoma 2020 with trace subarachnoid hemorrhage Repeat CT head 05/07 showed resolution of trace subarachnoid hemorrhage Restless Leg Syndrome -continue ropinerole Depression -continue lexapro Cardiac - --Occlusion of left aortoiliac artery S/p thrombectomy May 02 2022 --Atrial Fibrillation with apical thrombus Continue with metoprolol and digoxin -- Chronic systolic CHF Not in acute exacerbation right now 2D Echo 04/30/2022: EF <15% extensive wall motion abnormalities, moderate sized apical thrombus, normal RV systolic pressure Respiratory - no concerns at this time GI - NPO RENAL/LYTES - Monitor BUNs/creatinine Avoid nephrotoxic medication - No concerns at this time. ENDO - DM2 -last A1c 6.8 in january With ICU hypoglycemia protocol HEME - --Acute bleeding From the incisional site Hold anticoagulation Monitor H&H, transfuse if hemoglobin is less than 7 ID - -- Questionable lower extremity cellulitis Currently on broad-spectrum antibiotics --Prophylaxis VTE: Apixaban, placed on hold GI: None Lines: Peripheral Diet: N.p.o. Plan: In/out: -1 L, urine output 2250 Patient's hemoglobin yesterday was 7.8. He has profuse bleeding from the incision site. H&H Type and screen. Hold apixaban. Will consider giving the patient Kcentra based on the repeat H&H. Unfortunately do not have vascular surgery in house today. The patient continues to have profuse bleeding from the site patient will need to be transferred Continue with antibiotics for possible lower extremity cellulitis, follow-up procalcitonin, ESR and CRP Case was discussed with hospitalist I have personally spent 58 minutes of critical care time in the direct management of this patient. This is a life/limb threatening event. This includes time spent evaluating patient, direct bedside care, chart review, placing orders, interpretation of diagnostic studies, discussion with consultants, patient, and family members, as well as other required patient management activities. This time is exclusive of all separately billable procedures, and teaching time and separate from and in addition to any other critical care service time. Please note the above document was generated using voice recognition software. It may contain grammatical, syntax or spelling errors. Coding Level of Care Code Critical Care 1st 30-74 mins Time Spent (min) 58
[2022-05-19 09:40] LABS: Albumin Level 2.6 gm/dl (3.4-5.0); BUN Creatinine Ratio 18.7 (10-20); Bilirubin Direct 0.5 mg/dl (0-0.2); Bilirubin,Total 1.7 mg/dl (0.2-1.0); Calcium 8.4 mg/dl (8.5-10.1); Creatinine Clr Calc Pharmacy 115.1 ml/min; Est GFR (African American) 105.5 ml/min; Magnesium 1.9 mg/dl (1.7-2.4); Phosphorus 3.3 mg/dl (2.5-4.9); Polychromasia 1+; Potassium 4.2 mmol/L (3.5-5.1); Total Protein 6.2 gm/dl (6.0-8.3)
[2022-05-19] MEDS: MAGNESIUM SULFATE / D5W 1 GM/100 ML BAG IV SCH ×2 (10:27→12:07)
[2022-05-19 12:32] LABS: Hematocrit (blood only) 24.6 % (40.1-51.0); Hemoglobin 8.1 g/dl (14.0-18.0)
[2022-05-19] MEDS: DAPTOmycin 375 MG in SYRINGE 0 ML IV SCH (14:10)
[2022-05-19] MEDS: HYDROmorphone INJ 0.5 MG/0.5 ML SYR IV PRN ×2 (14:12→21:10)
[2022-05-19] MEDS: ATORVASTATIN 40 MG TAB PO SCH (16:06)
[2022-05-19] MEDS: DIGOXIN 0.125 MG TAB PO SCH (16:06)
[2022-05-19 18:54] LABS: Hematocrit (blood only) 24.2 % (40.1-51.0); Hemoglobin 8.1 g/dl (14.0-18.0)
[2022-05-19] MEDS: rOPINIRole HCL 0.25 MG TABLET PO SCH (21:06)
[2022-05-19] MEDS: ESCITALOPRAM OXALATE 10 MG TAB PO SCH (21:07)
[2022-05-19] MEDS: SPIRONOLACTONE 25 MG TAB PO SCH (21:08)
[2022-05-19] MEDS: TAMSULOSIN HCL 0.4 MG CAP PO SCH (21:08)
[2022-05-19 23:31] LABS: Hematocrit (blood only) 23.3 % (40.1-51.0); Hemoglobin 7.9 g/dl (14.0-18.0)
--- NOTE | 2022-05-20 00:28 | Hospitalist Progress Note ---
Date of Service May 20, 2022 Assessment & Plan (1) Drainage from surgical wound: Plan: Patient had developed significant oozing from incisional site this a.m. and had to be transferred to the ICU for close monitoring and packed RBC transfusion Patient presently on antibiotic with daptomycin and Zosyn Type and screen 2 units packed RBC and transfuse as needed Case discussed in detail with the ICU attending (2) Cellulitis of lower extremity: Plan: The plan as mentioned above (3) Atrial fibrillation with rapid ventricular response: Plan: Patient heart rate between 100-110 this a.m. Continue metoprolol and digoxin which were reinstituted this admission Eliquis on board for recent LV thrombus and iliac thrombi but only x 3 months due to h/o ICH x 2 ICU monitoring (4) Ischemic cardiomyopathy: Plan: Chronic systolic CHF On exam patient patient looks well compensated heart failure no significant swelling of the lower extremities lungs are clear to auscultation Patient with an EF of less than 15% on recent echocardiogram. Patient with new firing of ICD. He had a similar episode while being induced for the initial procedure to correct his acute occlusion of the aortoiliac artery. Digoxin has been reinstituted. Digoxin level 0.5. Rate control improved since admission Continue his metoprolol at increased dose of 200mg daily Continue apixaban. Appreciate cardiology consultation. Continue home spironolactone Daily weights, strict I's and O's, low-sodium diet (5) Leukocytosis: Plan: Has resolved, multifactorial, including UTI with Klebsiella, extensive hematoma which is regressing, (6) UTI (urinary tract infection) due to urinary indwelling Gimenez catheter: Plan: Presented with UTI in the setting of Gimenez catheter placed for urinary retention during last admission Now status post removal of Gimenez catheter and bladder scans are minimal for post void residual Antibiotics as above for Klebsiella pneumoniae UTI (7) Acute occlusion of aortoiliac artery: Plan: During last admission, was found to have acute thrombus in aorta and bilateral iliac arteries secondary to LV thrombus with embolism Underwent urgent vascular surgery Wounds in bilateral groins remain with underlying hematoma and edema, ecchymosis, some serous and bloody drainage [place] are in place bilaterally-would keep in place until removed by vascular surgery-we will have vascular surgery follow-up next week when available Pulses in feet are present with Doppler but difficult to palpate however both feet are warm and with good cap refill With pain in the legs-started on gabapentin 100 Mg p.o. 3 times daily which is helping He had increased confusion with a trial of Percocet and Tylenol not helping enough -Follow-up with vascular surgery -We will hold Eliquis temporarily due to increasing bleeding from the groin site (8) LV (left ventricular) mural thrombus: Plan: Anticoagulated on apixaban. Plan only for 3 months of anticoagulation given history of recent intracranial hemorrhage (9) CAD (coronary artery disease): Plan: Continue ASCVD Rx per outpatient course but all antiplatelets have been recently stopped due to need for Eliquis and h/o ICH Continue metoprolol, statin (10) Anemia: Plan: hgb stable today at 7.74 had acute blood loss anemia last admission after developing hematomas at bilat groin surgical sites s/p Vascular surgery Iron studies here show transferrin saturation of 19%-added on oral ferrous sulfate Follow CBC in the morning transfuse if hgb< 7 (11) Depression: Plan: Stable, has chronic flat affect Continue Lexapro (12) Subarachnoid hemorrhage: Plan: H/o SDH in 2020 and then found to have a trace SAH during recent admission for LV thrombus repeat head CT on 05/07 showed resolution of trace SAH repeat head CT if develops headache or focal neuro symptoms (13) Diabetes: Plan: HgbA1C only 6.1%, receiving minimal insulin here continue glucose checks, SSI (14) Elevated LFTs: Plan: Continue to trend downward Likely secondary to hepatic congestion from severe heart failure in the setting of recent rapid atrial fibrillation Follow LFTs in the morning Plan DVT prophylaxis-Eliquis Disposition-improving slowly, plan to discharge to acute rehab on Thursday or Thursday when insurance authorization can be obtained when his insurance company is open after the holiday weekend Admission and Anticipated Discharge Date Admission Date: May 13, 2022 Subjective The patient is a 71-year-old [place] male with a past medical history significant for obesity, intracranial bleed, complicated with right hemiparesis peripheral arterial disease diabetes hypertension hyperlipidemia diastolic heart failure with EF of 15% status post ICD who initially admitted to this facility in April due to acute thrombotic event (most likely because patient was not on anticoagulation due to subdural hematoma) requiring bilateral iliac and femoral embolectomy Left Common Femoral Artery Endarterectomy with Bovine Patch, Right Common Artery Patch Angioplasty(Left) with Aaron Sharp on 05/02/2022. Complicated with extensive hematoma of bilateral thigh required multiple transfusion, urinary retention, A. fib with RVR, acute kidney injury possibly secondary to ATN due to hypotension and evidence of left ventricular thrombus. The patient is discharged to rehab facility, however couple days later on presented to the hospital with A. fib with RVR Patient had developed significant bleeding from the incisional site bilaterally and hence had to be transferred to the ICU given his systolic blood pressure being in the 90s with heart rate between 100-110 range Physical Exam Physical Exam: Constitutional: Patient in slight distress HEENT: No scleral injection or discharge. . Neck: Supple without lymphadenopathy or thyromegaly. Lungs: Bilateral air entry fair Cardiac: Normal rhythm. No murmurs. Abdomen:Bowel sounds present. Soft and nondistended. . No rebound tenderness MSK: Patient had developed significant oozing from incisional site from the hematoma . Results & Data Results & Data ([facility]) Vital Signs (Past 12 Hours) Vital Signs Temp Pulse Resp BP Pulse Ox O2 Del Method 05/19/22 18:01 107 H 28 H 93 05/19/22 18:01 97/68 L 05/19/22 18:00 114 H 21 93 05/19/22 17:00 112 H 33 H 95 05/19/22 17:00 141/78 H 05/19/22 16:00 91 H 31 H 96 05/19/22 16:00 120/82 05/19/22 16:06 101 H 05/19/22 15:00 92 H 32 H 95 05/19/22 15:00 128/79 05/19/22 14:30 104 H 27 H 96 05/19/22 13:00 36.9 C 05/19/22 14:00 87 18 137/70 96 Room Air 05/19/22 13:00 93 H 29 H 97 05/19/22 13:00 117/70 PG Care Time/CCT Total # of Minutes Spent Total Time Spent with Patient: Total time spent is greater than 50% in coordination of care (as documented) at patient's floor/unit and/or counseling patient: Coding Level of Care Code 43649 Subseq Hosp Care Lvl 2 Diagnoses Drainage from surgical wound Cellulitis of lower extremity L03.119 Atrial fibrillation with rapid ventricular response I48.91 Ischemic cardiomyopathy I25.5 Leukocytosis D72.829 UTI (urinary tract infection) due to urinary indwelling Gimenez catheter T83.511A; N39.0 Acute occlusion of aortoiliac artery I74.09 LV (left ventricular) mural thrombus I51.3 CAD (coronary artery disease) I25.10 Anemia D64.9 Depression F32.A Subarachnoid hemorrhage I60.9 Diabetes E11.9 Elevated LFTs R79.89
[2022-05-20] MEDS: PIPERACILLIN/TAZOBACTAM 4.5 GM in DEXTROSE 5% 100 ML IV SCH (02:46)
[2022-05-20 05:10] LABS: Basophils # (auto) 0.04 K/uL (0-0.2); Basophils % (auto) 0.4 %; Eosinophils # (auto) 0.09 K/uL (0-0.50); Hematocrit (blood only) 23.9 % (40.1-51.0); Hemoglobin 8.1 g/dl (14.0-18.0); Immature Granulocytes # (auto) 0.06 K/uL (0.00-0.02); Immature Granulocytes % (auto) 0.7 %; Lymphocytes # (auto) 1.43 K/uL (1.2-3.4); Lymphocytes % (auto) 15.5 %; Mean Corpuscular Hgb Conc 33.9 g/dL (32.0-36.0); Mean Corpuscular Volume 88.5 fL (80.0-100.0); Mean Platelet Volume 10.1 fL (9.4-12.4); Monocytes # (auto) 0.65 K/uL (0.24-0.82); Neutrophils # (auto) 6.96 K/uL (1.4-6.5); Neutrophils % (auto) 75.4 %; Platelet Count 389 K/uL (130-400); RDW Coefficient of Variation 18.5 % (11.5-14.5); RDW Standard Deviation 57.1 fL (36.4-46.3); White Blood Count 9.23 K/ul (4.8-10.8)
[2022-05-20 05:41] LABS: Calcium 8.1 mg/dl (8.5-10.1); Est GFR (African American) 109.8 ml/min; Est GFR (Non-African American) 94.7 ml/min
[2022-05-20] MEDS: HYDROmorphone INJ 0.5 MG/0.5 ML SYR IV PRN ×4 (06:03→18:36)
[2022-05-20 06:42] LABS: Magnesium 2.1 mg/dl (1.7-2.4); Phosphorus 3.5 mg/dl (2.5-4.9)
[2022-05-20 07:07] LABS: INR 1.4 (0.9-1.1); Partial Thromboplastin Ratio 1.1; Prothrombin Time 15.1 Seconds (9.0-12.0)
[2022-05-20] MEDS: INSULIN ASPART PER UNIT SC SCH ×4 (07:42→21:30)
[2022-05-20] MEDS: METOPROLOL SUCC 50MG EXT REL TAB PO SCH (08:25)
[2022-05-20] MEDS: ACETAMINOPHEN 500 MG TAB PO SCH ×3 (08:25→23:48)
[2022-05-20] MEDS: FERROUS SULFATE 325 MG TAB PO SCH ×2 (08:25→16:33)
[2022-05-20] MEDS: GABAPENTIN 100 MG CAP PO SCH ×3 (08:25→21:23)
--- NOTE | 2022-05-20 08:28 | Critical Care Progress Note ---
Date of Service May 20, 2022 Assessment & Plan (1) Admitted to intensive care unit: Plan: Reason Critically Ill: 71yo Male with PMH afib, Hx hemorrhagic stroke 6 months ago, CAD, HLD, DM2, cardiomyopathy, ICD placement here for acute occlusion of left aortoiliac artery requiring thrombectomy with vascular surgery with admitted to hospital with Natalia lentz with RVR. Patient was found to be tachycardic with bleeding from the incision site. ICU was consulted because of borderline hypotension and tachycardia. 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 ENDO - DM2 -last A1c 6.8 in January With ICU hypoglycemia protocol HEME - --Acute bleeding From the incisional site Spoke with vascular, will start heparin drip due to h/o apical thrombus Monitor H&H, transfuse if hemoglobin is less than 7. Appears to be stable for now. ID - -- Questionable lower extremity cellulitis D/c'd dapto and zosyn due to resistance patterns found below. Started ertapenem. Would consider ID consult --Drainage from surgical wound Groin wound cx grew klebsiella ESBL which is likely from external urinary cath. Abx as above. --Prophylaxis VTE: heparin gtt GI: None Lines: Peripheral Diet: DM2, low sodium Thank you for allowing us to participate in the care of this patient. Will continue to monitor. Please refer to my attending physician's documentation for any further recommendations. (2) Drainage from surgical wound: (3) Chronic systolic CHF (congestive heart failure): (4) Urinary retention: (5) Restless leg syndrome: (6) Paroxysmal atrial fibrillation: (7) LV (left ventricular) mural thrombus: (8) Ischemic cardiomyopathy: (9) Hyperlipidemia: (10) Diabetes: Admission and Anticipated Discharge Date Admission Date: May 13, 2022 Supervising Physician Co-Signing Physician Notes Dr. Brush was the resident-physician during care of patient. I separately evaluated patient for bingham portions of the history and the exam. I was present during the critical portion of medical decision making, and I discussed the case with the resident. I generally agree with the findings and plan except for any additions/exceptions noted. Patient seen and examined bedside. No acute distress. No adverse events overnight. Today patient's right side groin dressing is again seeping blood-tinged fluid. Interestingly patient's hemoglobin is stable He denies any chest pain, no headache, no nausea, no vomiting Poor appetite. No fever. Constitutional: No acute distress HEENT: EOMI, PERRLA Respiratory system:Decreased air entry bilaterally, no wheeze, rhonchi, no crackles CVS: S1-S2 positive, no murmurs or gallops, distant heart sounds Abdomen: Soft, nontender, nondistended, positive bowel sounds x4 Extremities: +2 pulses bilaterally radialis, decreased pulses bilateral dorsalis pedis, no cyanosis, no edema,left groin resolving hematoma, right groin bandage in place with bright red oozing Neuro: Awake alert oriented x3 Psych: Normal mood and affect G/U: No Gimenez Plan: In/out: -355, urine output 825. Patient's hemoglobin is stable. Is 8.1 since yesterday. Is still oozing from the right groin area. I did personally speak with Dr. Sharp and updated regarding patient's condition. Is stated discontinue with antibiotics and resume heparin given the severe peripheral vascular disease as well as apical thrombus. Heparin drip will be restarted without bolus. Given the patient's wound culture is growing ESBL. Antibiotics has been changed to ertapenem Continue with daptomycin for the time being. Recommend ID consultation Hospitalist updated regarding the above Patient is hemodynamically stable to be downgraded to medical floor Please note the above document was generated using voice recognition software. It may contain grammatical, syntax or spelling errors.Any formal questions or concerns about the content, text or information contained within the body of this dictation should be directly addressed to the provider for clarification. Subjective Patient seen at bedside this morning. Has not been eating much but says he is a picky eater. Doing well otherwise. Denies headache, N/V, chest pain, sob, fatigue, abd pain. Memory appears intact. Review of Systems Review of Systems: All systems reviewed & are unremarkable except as noted in HPI & below Physical Exam Physical Exam: Constitutional: No acute distress HEENT: EOMI, PERRLA Respiratory:Decreased air entry bilaterally, no wheeze, rhonchi, no crackles CVS: mildly tachycardic. S1-S2 positive, no murmurs or gallops, distant heart sounds Abdomen: Soft, nontender, nondistended, positive bowel sounds x4 Extremities: +2 pulses bilaterally radialis and dorsalis pedis, no cyanosis, no edema,left groin resolving hematoma, right groin bandage in place with bright red oozing Neuro: Awake alert oriented x3 Psych: Normal mood and affect G/U: No Gimenez Skin: no rashes, warm and dry Lymphatic: no cervical or axillary lymphadenopathy Results & Data Results & Data ([facility]) Vital Signs (Past 12 Hours) Vital Signs Temp Pulse Resp BP Pulse Ox O2 Del Method 05/20/22 08:00 102 H 19 105/65 95 Room Air 05/20/22 07:00 104 H 18 123/77 94 Room Air 05/20/22 08:00 36.9 C 05/20/22 07:30 120 H 05/20/22 05:04 103 H 13 102/59 L 97 05/20/22 01:00 109 H 25 H 94 05/20/22 01:00 106/65 05/20/22 00:30 122 H 31 H 93 05/20/22 04:01 36.8 C 05/19/22 22:00 110 H 05/20/22 00:00 110 H 27 H 96 05/20/22 00:00 90/69 L 05/19/22 23:00 113 H 20 93 05/19/22 23:00 127/73 05/19/22 22:00 106 H 19 93 05/19/22 21:04 110/67 05/19/22 21:04 102 H 20 99 05/19/22 21:00 109 H 20 98 05/20/22 00:43 36.7 C Laboratory Results 05/20/22 05/20/2223 Range/Units 07:07 06:11 05:59 WBC (4.8-10.8) K/ul RBC (4.63-6.08) M/uL Hgb (14.0-18.0) g/dl Hct (40.1-51.0) % MCV (80.0-100.0) fL MCH (25.0-34.0) pg MCHC (32.0-36.0) g/dL RDW Std Deviation (36.4-46.3) fL RDW Coeff of Moriah (11.5-14.5) % Plt Count (130-400) K/uL MPV (9.4-12.4) fL Immature Gran % (Auto) % Neut % (Auto) % Lymph % (Auto) % Jenkins % (Auto) % Eos % (Auto) % Baso % (Auto) % Neut # (Auto) (1.4-6.5) K/uL Lymph # (Auto) (1.2-3.4) K/uL Jenkins # (Auto) (0.24-0.82) K/uL Eos # (Auto) (0-0.50) K/uL Baso # (Auto) (0-0.2) K/uL Immature Gran # (Auto) (0.00-0.02) K/uL Polychromasia ESR (0-20) mm/hr PT (9.0-12.0) Seconds INR (0.9-1.1) APTT (21.0-31.0) Seconds PTT Ratio Sodium (136-145) mmol/L Potassium (3.5-5.1) mmol/L Chloride (98-107) mmol/L Carbon Dioxide (21-32) mmol/L Anion Gap (3-11) BUN (6-23) mg/dl Creatinine (0.6-1.4) mg/dl Est Cr Clr Drug Dosing ml/min Est GFR ( Amer) ml/min Est GFR (Non-Af Amer) ml/min BUN/Creatinine Ratio (10-20) Glucose (70-99(Fasting)) mg/dl POC Glucose 119 H (70-99) mg/dl Fasting Glucose (70-99) mg/dl Lactate 1.4 (0.4-2.0) mmol/L Calcium (8.5-10.1) mg/dl Phosphorus 3.5 (2.5-4.9) mg/dl Magnesium 2.1 (1.7-2.4) mg/dl Total Bilirubin (0.2-1.0) mg/dl Direct Bilirubin (0-0.2) mg/dl AST (13-39) U/L ALT (7-52) U/L Alkaline Phosphatase (34-104) U/L C-Reactive Protein (0-0.5) mg/dl Total Protein (6.0-8.3) gm/dl Albumin (3.4-5.0) gm/dl Procalcitonin (0-0.5) ng/ml Blood Type Antibody Screen 05/20/22 05/20/22 05/20/22 Range/Units 05:59 05:01 05:01 WBC 9.23 (4.8-10.8) K/ul RBC 2.70 L (4.63-6.08) M/uL Hgb 8.1 L (14.0-18.0) g/dl Hct 23.9 L (40.1-51.0) % MCV 88.5 (80.0-100.0) fL MCH 30.0 (25.0-34.0) pg MCHC 33.9 (32.0-36.0) g/dL RDW Std Deviation 57.1 H (36.4-46.3) fL RDW Coeff of Moriah 18.5 H (11.5-14.5) % Plt Count 389 (130-400) K/uL MPV 10.1 (9.4-12.4) fL Immature Gran % (Auto) 0.7 % Neut % (Auto) 75.4 % Lymph % (Auto) 15.5 % Jenkins % (Auto) 7.0 % Eos % (Auto) 1.0 % Baso % (Auto) 0.4 % Neut # (Auto) 6.96 H (1.4-6.5) K/uL Lymph # (Auto) 1.43 (1.2-3.4) K/uL Jenkins # (Auto) 0.65 (0.24-0.82) K/uL Eos # (Auto) 0.09 (0-0.50) K/uL Baso # (Auto) 0.04 (0-0.2) K/uL Immature Gran # (Auto) 0.06 H (0.00-0.02) K/uL Polychromasia ESR (0-20) mm/hr PT 15.1 H (9.0-12.0) Seconds INR 1.4 H (0.9-1.1) APTT 31.0 (21.0-31.0) Seconds PTT Ratio 1.1 Sodium 134 L (136-145) mmol/L Potassium 4.0 (3.5-5.1) mmol/L Chloride 104 (98-107) mmol/L Carbon Dioxide 24 (21-32) mmol/L Anion Gap 6 (3-11) BUN 16 (6-23) mg/dl Creatinine 0.68 (0.6-1.4) mg/dl Est Cr Clr Drug Dosing 127.0 ml/min Est GFR ( Amer) 109.8 ml/min Est GFR (Non-Af Amer) 94.7 ml/min BUN/Creatinine Ratio (10-20) Glucose (70-99(Fasting)) mg/dl POC Glucose (70-99) mg/dl Fasting Glucose 113 H (70-99) mg/dl Lactate (0.4-2.0) mmol/L Calcium 8.1 L (8.5-10.1) mg/dl Phosphorus (2.5-4.9) mg/dl Magnesium (1.7-2.4) mg/dl Total Bilirubin (0.2-1.0) mg/dl Direct Bilirubin (0-0.2) mg/dl AST (13-39) U/L ALT (7-52) U/L Alkaline Phosphatase (34-104) U/L C-Reactive Protein (0-0.5) mg/dl Total Protein (6.0-8.3) gm/dl Albumin (3.4-5.0) gm/dl Procalcitonin (0-0.5) ng/ml Blood Type Antibody Screen 05/19/22 05/19/22 05/19/22 Range/Units 23:20 21:21 18:12 WBC (4.8-10.8) K/ul RBC (4.63-6.08) M/uL Hgb 7.9 L 8.1 L (14.0-18.0) g/dl Hct 23.3 L 24.2 L (40.1-51.0) % MCV (80.0-100.0) fL MCH (25.0-34.0) pg MCHC (32.0-36.0) g/dL RDW Std Deviation (36.4-46.3) fL RDW Coeff of Moriah (11.5-14.5) % Plt Count (130-400) K/uL MPV (9.4-12.4) fL Immature Gran % (Auto) % Neut % (Auto) % Lymph % (Auto) % Jenkins % (Auto) % Eos % (Auto) % Baso % (Auto) % Neut # (Auto) (1.4-6.5) K/uL Lymph # (Auto) (1.2-3.4) K/uL Jenkins # (Auto) (0.24-0.82) K/uL Eos # (Auto) (0-0.50) K/uL Baso # (Auto) (0-0.2) K/uL Immature Gran # (Auto) (0.00-0.02) K/uL Polychromasia ESR (0-20) mm/hr PT (9.0-12.0) Seconds INR (0.9-1.1) APTT (21.0-31.0) Seconds PTT Ratio Sodium (136-145) mmol/L Potassium (3.5-5.1) mmol/L Chloride (98-107) mmol/L Carbon Dioxide (21-32) mmol/L Anion Gap (3-11) BUN (6-23) mg/dl Creatinine (0.6-1.4) mg/dl Est Cr Clr Drug Dosing ml/min Est GFR ( Amer) ml/min Est GFR (Non-Af Amer) ml/min BUN/Creatinine Ratio (10-20) Glucose (70-99(Fasting)) mg/dl POC Glucose 98 (70-99) mg/dl Fasting Glucose (70-99) mg/dl Lactate (0.4-2.0) mmol/L Calcium (8.5-10.1) mg/dl Phosphorus (2.5-4.9) mg/dl Magnesium (1.7-2.4) mg/dl Total Bilirubin (0.2-1.0) mg/dl Direct Bilirubin (0-0.2) mg/dl AST (13-39) U/L ALT (7-52) U/L Alkaline Phosphatase (34-104) U/L C-Reactive Protein (0-0.5) mg/dl Total Protein (6.0-8.3) gm/dl Albumin (3.4-5.0) gm/dl Procalcitonin (0-0.5) ng/ml Blood Type Antibody Screen 05/19/22 05/19/22 05/19/22 Range/Units 17:45 12:18 11:32 WBC (4.8-10.8) K/ul RBC (4.63-6.08) M/uL Hgb 8.1 L (14.0-18.0) g/dl Hct 24.6 L (40.1-51.0) % MCV (80.0-100.0) fL MCH (25.0-34.0) pg MCHC (32.0-36.0) g/dL RDW Std Deviation (36.4-46.3) fL RDW Coeff of Moriah (11.5-14.5) % Plt Count (130-400) K/uL MPV (9.4-12.4) fL Immature Gran % (Auto) % Neut % (Auto) % Lymph % (Auto) % Jenkins % (Auto) % Eos % (Auto) % Baso % (Auto) % Neut # (Auto) (1.4-6.5) K/uL Lymph # (Auto) (1.2-3.4) K/uL Jenkins # (Auto) (0.24-0.82) K/uL Eos # (Auto) (0-0.50) K/uL Baso # (Auto) (0-0.2) K/uL Immature Gran # (Auto) (0.00-0.02) K/uL Polychromasia ESR (0-20) mm/hr PT (9.0-12.0) Seconds INR (0.9-1.1) APTT (21.0-31.0) Seconds PTT Ratio Sodium (136-145) mmol/L Potassium (3.5-5.1) mmol/L Chloride (98-107) mmol/L Carbon Dioxide (21-32) mmol/L Anion Gap (3-11) BUN (6-23) mg/dl Creatinine (0.6-1.4) mg/dl Est Cr Clr Drug Dosing ml/min Est GFR ( Amer) ml/min Est GFR (Non-Af Amer) ml/min BUN/Creatinine Ratio (10-20) Glucose (70-99(Fasting)) mg/dl POC Glucose 102 H 114 H (70-99) mg/dl Fasting Glucose (70-99) mg/dl Lactate (0.4-2.0) mmol/L Calcium (8.5-10.1) mg/dl Phosphorus (2.5-4.9) mg/dl Magnesium (1.7-2.4) mg/dl Total Bilirubin (0.2-1.0) mg/dl Direct Bilirubin (0-0.2) mg/dl AST (13-39) U/L ALT (7-52) U/L Alkaline Phosphatase (34-104) U/L C-Reactive Protein (0-0.5) mg/dl Total Protein (6.0-8.3) gm/dl Albumin (3.4-5.0) gm/dl Procalcitonin (0-0.5) ng/ml Blood Type Antibody Screen 05/19/22 05/19/22 05/19/22 Range/Units 10:08 09:05 08:46 WBC (4.8-10.8) K/ul RBC (4.63-6.08) M/uL Hgb (14.0-18.0) g/dl Hct (40.1-51.0) % MCV (80.0-100.0) fL MCH (25.0-34.0) pg MCHC (32.0-36.0) g/dL RDW Std Deviation (36.4-46.3) fL RDW Coeff of Moriah (11.5-14.5) % Plt Count (130-400) K/uL MPV (9.4-12.4) fL Immature Gran % (Auto) % Neut % (Auto) % Lymph % (Auto) % Jenkins % (Auto) % Eos % (Auto) % Baso % (Auto) % Neut # (Auto) (1.4-6.5) K/uL Lymph # (Auto) (1.2-3.4) K/uL Jenkins # (Auto) (0.24-0.82) K/uL Eos # (Auto) (0-0.50) K/uL Baso # (Auto) (0-0.2) K/uL Immature Gran # (Auto) (0.00-0.02) K/uL Polychromasia ESR (0-20) mm/hr PT (9.0-12.0) Seconds INR (0.9-1.1) APTT (21.0-31.0) Seconds PTT Ratio Sodium (136-145) mmol/L Potassium (3.5-5.1) mmol/L Chloride (98-107) mmol/L Carbon Dioxide (21-32) mmol/L Anion Gap (3-11) BUN (6-23) mg/dl Creatinine (0.6-1.4) mg/dl Est Cr Clr Drug Dosing ml/min Est GFR ( Amer) ml/min Est GFR (Non-Af Amer) ml/min BUN/Creatinine Ratio (10-20) Glucose (70-99(Fasting)) mg/dl POC Glucose (70-99) mg/dl Fasting Glucose (70-99) mg/dl Lactate 0.8 (0.4-2.0) mmol/L Calcium (8.5-10.1) mg/dl Phosphorus (2.5-4.9) mg/dl Magnesium (1.7-2.4) mg/dl Total Bilirubin (0.2-1.0) mg/dl Direct Bilirubin (0-0.2) mg/dl AST (13-39) U/L ALT (7-52) U/L Alkaline Phosphatase (34-104) U/L C-Reactive Protein 25.94 H (0-0.5) mg/dl Total Protein (6.0-8.3) gm/dl Albumin (3.4-5.0) gm/dl Procalcitonin (0-0.5) ng/ml Blood Type AB Positive Antibody Screen NEGATIVE 05/19/22 05/19/22 05/19/22 Range/Units 08:46 08:46 08:46 WBC (4.8-10.8) K/ul RBC (4.63-6.08) M/uL Hgb (14.0-18.0) g/dl Hct (40.1-51.0) % MCV (80.0-100.0) fL MCH (25.0-34.0) pg MCHC (32.0-36.0) g/dL RDW Std Deviation (36.4-46.3) fL RDW Coeff of Moriah (11.5-14.5) % Plt Count (130-400) K/uL MPV (9.4-12.4) fL Immature Gran % (Auto) % Neut % (Auto) % Lymph % (Auto) % Jenkins % (Auto) % Eos % (Auto) % Baso % (Auto) % Neut # (Auto) (1.4-6.5) K/uL Lymph # (Auto) (1.2-3.4) K/uL Jenkins # (Auto) (0.24-0.82) K/uL Eos # (Auto) (0-0.50) K/uL Baso # (Auto) (0-0.2) K/uL Immature Gran # (Auto) (0.00-0.02) K/uL Polychromasia ESR > 130 H (0-20) mm/hr PT (9.0-12.0) Seconds INR (0.9-1.1) APTT (21.0-31.0) Seconds PTT Ratio Sodium 135 L (136-145) mmol/L Potassium 4.2 (3.5-5.1) mmol/L Chloride 103 (98-107) mmol/L Carbon Dioxide 27 (21-32) mmol/L Anion Gap 5 (3-11) BUN 14 (6-23) mg/dl Creatinine 0.75 (0.6-1.4) mg/dl Est Cr Clr Drug Dosing 115.1 ml/min Est GFR ( Amer) 105.5 ml/min Est GFR (Non-Af Amer) 91.0 ml/min BUN/Creatinine Ratio 18.7 (10-20) Glucose 119 H (70-99(Fasting)) mg/dl POC Glucose (70-99) mg/dl Fasting Glucose (70-99) mg/dl Lactate (0.4-2.0) mmol/L Calcium 8.4 L (8.5-10.1) mg/dl Phosphorus 3.3 (2.5-4.9) mg/dl Magnesium 1.9 (1.7-2.4) mg/dl Total Bilirubin 1.7 H (0.2-1.0) mg/dl Direct Bilirubin 0.5 H (0-0.2) mg/dl AST 29 (13-39) U/L ALT 28 (7-52) U/L Alkaline Phosphatase 118 H (34-104) U/L C-Reactive Protein (0-0.5) mg/dl Total Protein 6.2 (6.0-8.3) gm/dl Albumin 2.6 L (3.4-5.0) gm/dl Procalcitonin 0.16 (0-0.5) ng/ml Blood Type Antibody Screen 05/19/22 Range/Units 08:46 WBC 9.75 (4.8-10.8) K/ul RBC 2.65 L (4.63-6.08) M/uL Hgb 7.8 L (14.0-18.0) g/dl Hct 23.8 L (40.1-51.0) % MCV 89.8 (80.0-100.0) fL MCH 29.4 (25.0-34.0) pg MCHC 32.8 (32.0-36.0) g/dL RDW Std Deviation 59.2 H (36.4-46.3) fL RDW Coeff of Moriah 18.6 H (11.5-14.5) % Plt Count 342 (130-400) K/uL MPV 9.8 (9.4-12.4) fL Immature Gran % (Auto) 0.7 % Neut % (Auto) 78.1 % Lymph % (Auto) 13.9 % Jenkins % (Auto) 6.2 % Eos % (Auto) 0.6 % Baso % (Auto) 0.5 % Neut # (Auto) 7.61 H (1.4-6.5) K/uL Lymph # (Auto) 1.36 (1.2-3.4) K/uL Jenkins # (Auto) 0.60 (0.24-0.82) K/uL Eos # (Auto) 0.06 (0-0.50) K/uL Baso # (Auto) 0.05 (0-0.2) K/uL Immature Gran # (Auto) 0.07 H (0.00-0.02) K/uL Polychromasia 1+ ESR (0-20) mm/hr PT (9.0-12.0) Seconds INR (0.9-1.1) APTT (21.0-31.0) Seconds PTT Ratio Sodium (136-145) mmol/L Potassium (3.5-5.1) mmol/L Chloride (98-107) mmol/L Carbon Dioxide (21-32) mmol/L Anion Gap (3-11) BUN (6-23) mg/dl Creatinine (0.6-1.4) mg/dl Est Cr Clr Drug Dosing ml/min Est GFR ( Amer) ml/min Est GFR (Non-Af Amer) ml/min BUN/Creatinine Ratio (10-20) Glucose (70-99(Fasting)) mg/dl POC Glucose (70-99) mg/dl Fasting Glucose (70-99) mg/dl Lactate (0.4-2.0) mmol/L Calcium (8.5-10.1) mg/dl Phosphorus (2.5-4.9) mg/dl Magnesium (1.7-2.4) mg/dl Total Bilirubin (0.2-1.0) mg/dl Direct Bilirubin (0-0.2) mg/dl AST (13-39) U/L ALT (7-52) U/L Alkaline Phosphatase (34-104) U/L C-Reactive Protein (0-0.5) mg/dl Total Protein (6.0-8.3) gm/dl Albumin (3.4-5.0) gm/dl Procalcitonin (0-0.5) ng/ml Blood Type Antibody Screen Resident Activity Tracking Resident Involvement: Resident Care Provided Care Provided: Adult Hospital Medicine
[2022-05-20] MEDS: ERTAPENEM SODIUM 1,000 MG in SYRINGE 0 ML IV SCH (10:40)
--- NOTE | 2022-05-20 11:12 | Hospitalist Progress Note ---
Date of Service May 20, 2022 Assessment & Plan (1) Drainage from surgical wound: Plan: b/l groin - ESBL klebsiella. blood cultures negative. currently on zosyn + daptomycin. d/c both abx -- change to IV ertapenem 1gm IV daily. Dr Sharp plans to take Mr Cabrera to the OR tomorrow to explore the right groin wound and place woundvac. NPO after MN tonight. Will likely consult infectious disease. (2) Cellulitis of lower extremity: Plan: LLE - resolved. (3) Atrial fibrillation with rapid ventricular response: Plan: Cont digoxin. Recent dig level wnl. Cont metoprolol succinate. Rates acceptable today. Eliquis on hold. Resuming heparin infusion due to apical thrombus, a.fib, etc. (4) Acute blood loss anemia: Plan: 2nd to bleeding from groin operative sites. H/H stable today - low, but stable. Repeat cbc in am. (5) Ischemic cardiomyopathy: Plan: With resulting chronic systolic CHF, EF 15%. Compensated. Cont metoprolol succinate. Cont spironolactone. (6) UTI (urinary tract infection) due to urinary indwelling Jeff catheter: Plan: 2nd Klebsiella pneumoniae. Has received appropriate abx course while here. (7) Acute occlusion of aortoiliac artery: Plan: Acute thrombus in aorta and bilateral iliac arteries secondary to LV thrombus with embolism. 05/02/22 - s/p Bilateral Iliac and Femoral Embolectomy, Left Common Femoral Artery Endarterectomy with Bovine Patch, Right Common Artery Patch Angioplasty - by Dr Sharp. Now with mild bleeding from his incisions/wounds, and with evidence of ESBL Klebsiella infection. d/c zosyn d/c daptomycin Change to IV ertapenem. To OR tomorrow with Dr Sharp to address the right groin infection and probable placement of woundvac. Eliquis on hold but heparin drip resumed today cautiously. Is on gabapentin TID for pain control. (8) LV (left ventricular) mural thrombus: Plan: Discovered 05/02/22 on echo. Placed on Eliquis at that time. Now on hold due to bleeding/oozing from groin wounds. However, H/H stable over last 2 days. Heparin drip started cautiously today. (9) CAD (coronary artery disease): Plan: No evidence of any ACS. Continue metoprolol, statin. 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 did he have thromboembolic event to the ankle? gout? (known h/o such and is on allopurinol prophylaxis) other? consider x-rays Plan left message for pt's son on his voicemail downgrade from ICU to PCU service Admission and Anticipated Discharge Date Admission Date: May 13, 2022 Subjective patient resting in bed during the visit denied dyspnea or chest pain denied abdominal pain passing flatus/stool c/o right ankle pain - present since he had his recent surgery he feels "hopeless" admits to feeling depressed but only for a week or so very little appetite per staff the bleeding from the groin is improved overnight - BPs improved, HRs acceptable Review of Systems Review of Systems: gen - no fevers or chills cv - no cp, no orthopnea pulm - no cough GI - no nausea or emesis Physical Exam Physical Exam: gen - looks sickly but NAD skin - pallor; previous cellulitis of LLE resolved; dressings b/l groin not removed; ecchymoses of left medial thigh neck - no JVD mouth - geographic tongue; thrush? heart - irregularly irregular, s1 s2, 2/6 systolic murmur lungs - CTA b/l; no wheezes; no rales abd - soft NT ND BS+ ext - pulses b/l feet 1-2+; popliteal pulses 2+ b/l; no edema of ankles but edema of b/l thighs present musculo - right ankle - nontender with passive ROM; no synovitis; no bony abnormality of right ankle psych - restricted affect, a/o x 3 Results & Data Results & Data ([facility]) Vital Signs (Past 12 Hours) Vital Signs Temp Pulse Resp BP Pulse Ox O2 Del Method 05/20/22 08:28 112 H 12 133/78 96 Room Air 05/20/22 08:00 102 H 19 105/65 95 Room Air 05/20/22 07:00 104 H 18 123/77 94 Room Air 05/20/22 08:00 36.9 C 05/20/22 07:30 120 H 05/20/22 05:04 103 H 13 102/59 L 97 05/20/22 01:00 109 H 25 H 94 05/20/22 01:00 106/65 05/20/22 00:30 122 H 31 H 93 05/20/22 04:01 36.8 C 05/20/22 00:00 110 H 27 H 96 05/20/22 00:00 90/69 L 05/20/22 00:43 36.7 C Laboratory Results Laboratory Results - last 24 hr 05/19/22 05/19/22 05/19/22 11:32 12:18 17:45 WBC RBC Hgb 8.1 L Hct 24.6 L MCV MCH MCHC RDW Std Deviation RDW Coeff of Moriah Plt Count MPV Immature Gran % (Auto) Neut % (Auto) Lymph % (Auto) [place] % (Auto) Eos % (Auto) Baso % (Auto) Neut # (Auto) Lymph # (Auto) [place] # (Auto) Eos # (Auto) Baso # (Auto) Immature Gran # (Auto) PT INR APTT PTT Ratio Sodium Potassium Chloride Carbon Dioxide Anion Gap BUN Creatinine Est Cr Clr Drug Dosing Est GFR ( Amer) Est GFR (Non-Af Amer) POC Glucose 114 H 102 H Fasting Glucose Lactate Calcium Phosphorus Magnesium 05/19/22 05/19/22 05/19/22 18:12 21:21 23:20 WBC RBC Hgb 8.1 L 7.9 L Hct 24.2 L 23.3 L MCV MCH MCHC RDW Std Deviation RDW Coeff of Moriah Plt Count MPV Immature Gran % (Auto) Neut % (Auto) Lymph % (Auto) [place] % (Auto) Eos % (Auto) Baso % (Auto) Neut # (Auto) Lymph # (Auto) [place] # (Auto) Eos # (Auto) Baso # (Auto) Immature Gran # (Auto) PT INR APTT PTT Ratio Sodium Potassium Chloride Carbon Dioxide Anion Gap BUN Creatinine Est Cr Clr Drug Dosing Est GFR ( Amer) Est GFR (Non-Af Amer) POC Glucose 98 Fasting Glucose Lactate Calcium Phosphorus Magnesium 05/20/22 05/20/22 05/20/22 05:01 05:01 05:59 WBC 9.23 RBC 2.70 L Hgb 8.1 L Hct 23.9 L MCV 88.5 MCH 30.0 MCHC 33.9 RDW Std Deviation 57.1 H RDW Coeff of Moriah 18.5 H Plt Count 389 MPV 10.1 Immature Gran % (Auto) 0.7 Neut % (Auto) 75.4 Lymph % (Auto) 15.5 [place] % (Auto) 7.0 Eos % (Auto) 1.0 Baso % (Auto) 0.4 Neut # (Auto) 6.96 H Lymph # (Auto) 1.43 [place] # (Auto) 0.65 Eos # (Auto) 0.09 Baso # (Auto) 0.04 Immature Gran # (Auto) 0.06 H PT 15.1 H INR 1.4 H APTT 31.0 PTT Ratio 1.1 Sodium 134 L Potassium 4.0 Chloride 104 Carbon Dioxide 24 Anion Gap 6 BUN 16 Creatinine 0.68 Est Cr Clr Drug Dosing 127.0 Est GFR ( Amer) 109.8 Est GFR (Non-Af Amer) 94.7 POC Glucose Fasting Glucose 113 H Lactate Calcium 8.1 L Phosphorus Magnesium 05/20/22 05/20/22 05/20/22 05:59 06:11 07:07 WBC RBC Hgb Hct MCV MCH MCHC RDW Std Deviation RDW Coeff of [place]iah Plt Count MPV Immature Gran % (Auto) Neut % (Auto) Lymph % (Auto) [place] % (Auto) Eos % (Auto) Baso % (Auto) Neut # (Auto) Lymph # (Auto) [place] # (Auto) Eos # (Auto) Baso # (Auto) Immature Gran # (Auto) PT INR APTT PTT Ratio Sodium Potassium Chloride Carbon Dioxide Anion Gap BUN Creatinine Est Cr Clr Drug Dosing Est GFR ( Amer) Est GFR (Non-Af Amer) POC Glucose 119 H Fasting Glucose Lactate 1.4 Calcium Phosphorus 3.5 Magnesium 2.1 PG Care Time/CCT Total # of Minutes Spent Total Time Spent with Patient: Total time spent is greater than 50% in coordination of care (as documented) at patient's floor/unit and/or counseling patient: Coding Level of Care Code 58531 SUB INP/OBS CARE 3/50MIN Diagnoses Drainage from surgical wound Cellulitis of lower extremity L03.119 Atrial fibrillation with rapid ventricular response I48.91 Acute blood loss anemia D62 Ischemic cardiomyopathy I25.5 UTI (urinary tract infection) due to urinary indwelling Jeff catheter T83.511A; N39.0 Acute occlusion of aortoiliac artery I74.09 LV (left ventricular) mural thrombus I51.3 CAD (coronary artery disease) I25.10 Depression F32.A Subarachnoid hemorrhage I60.9 Diabetes E11.9 Elevated LFTs R79.89 Geographic tongue K14.1 Candidiasis of mouth and esophagus B37.81; B37.0 Urinary retention R33.9 Chronic systolic CHF (congestive heart failure) I50.22 AICD (automatic cardioverter/defibrillator) present Z95.810 Restless leg syndrome G25.81 Right ankle pain M25.571
[2022-05-20] MEDS: HEPARIN SODIUM/DEXTROSE 25,000 UNITS/500 ML BAG IV SCH (11:13)
[2022-05-20] MEDS: ADVANCED PROBIOTIC 1250 MG CAPSULE PO SCH (11:33)
--- NOTE | 2022-05-20 12:14 | Billing Data ---
Date of Service May 20, 2022 Coding Level of Care Code 90028 Subseq Hosp Care Lvl 3
[2022-05-20] MEDS ORDERED: Nursing to Pharmacy Communication SCH (12:45)
[2022-05-20] MEDS: ATORVASTATIN 40 MG TAB PO SCH (14:26)
[2022-05-20] MEDS: NYSTATIN SUSP 500,000 U/5 ML UDC PO SCH ×3 (14:26→21:20)
[2022-05-20] MEDS: DIGOXIN 0.125 MG TAB PO SCH (16:32)
[2022-05-20 18:28] LABS: Partial Thromboplastin Ratio 2.3
[2022-05-20 18:33] LABS: Partial Thromboplastin Time 64.2 Seconds (21.0-31.0)
[2022-05-20] MEDS: rOPINIRole HCL 0.25 MG TABLET PO SCH (21:21)
[2022-05-20] MEDS: ESCITALOPRAM OXALATE 10 MG TAB PO SCH (21:22)
[2022-05-20] MEDS: SPIRONOLACTONE 25 MG TAB PO SCH (21:24)
[2022-05-20] MEDS: TAMSULOSIN HCL 0.4 MG CAP PO SCH (21:25)
[2022-05-21] MEDS: HYDROmorphone INJ 0.5 MG/0.5 ML SYR IV PRN ×5 (00:20→22:20)
[2022-05-21] MEDS: HEPARIN SODIUM/DEXTROSE 25,000 UNITS/500 ML BAG IV SCH ×3 (02:30→19:35)
[2022-05-21 05:44] LABS: Basophils # (auto) 0.03 K/uL (0-0.2); Basophils % (auto) 0.4 %; Eosinophils # (auto) 0.04 K/uL (0-0.50); Eosinophils % (auto) 0.6 %; Hematocrit (blood only) 28.5 % (40.1-51.0); Hemoglobin 9.3 g/dl (14.0-18.0); Immature Granulocytes # (auto) 0.05 K/uL (0.00-0.02); Immature Granulocytes % (auto) 0.7 %; Lymphocytes # (auto) 1.59 K/uL (1.2-3.4); Lymphocytes % (auto) 23.1 %; Mean Corpuscular Hemoglobin 29.2 pg (25.0-34.0); Mean Corpuscular Hgb Conc 32.6 g/dL (32.0-36.0); Mean Corpuscular Volume 89.6 fL (80.0-100.0); Mean Platelet Volume 11.2 fL (9.4-12.4); Monocytes # (auto) 0.48 K/uL (0.24-0.82); Neutrophils % (auto) 68.2 %; Platelet Count 342 K/uL (130-400); RDW Coefficient of Variation 18.3 % (11.5-14.5); RDW Standard Deviation 58.7 fL (36.4-46.3); Red Blood Count 3.18 M/uL (4.63-6.08); White Blood Count 6.89 K/ul (4.8-10.8)
[2022-05-21 05:59] LABS: Partial Thromboplastin Time 28.2 Seconds (21.0-31.0)
[2022-05-21 06:04] LABS: Calcium 8.4 mg/dl (8.5-10.1); Creatinine Clr Calc Pharmacy 125.2 ml/min; Est GFR (African American) 109.8 ml/min; Est GFR (Non-African American) 94.7 ml/min; Potassium 4.7 mmol/L (3.5-5.1)
[2022-05-21] MEDS ORDERED: HEPARIN SOD (PORCINE) 1000 UNIT/ML IV ONE (06:45)
--- NOTE | 2022-05-21 07:24 | History & Physical Bridge Note ---
Date of Service May 21, 2022 History & Physical Bridge Note Patient for debridement of right groin today with application of wound vac. I have discussed the risks options and benefits of the procedure with the patient. The patient understands the risks options and benefits and agrees to the procedure. I have examined the patient, reviewed the History & Physical and in the interval since the performance of the History & Physical I have noted the following changes of clinical significance: no changes noted
--- NOTE | 2022-05-21 07:24 | Consultation ---
Date of Consultation May 21, 2022 Assessment & Plan (1) Infected wound: Patient to undergo debridement of the right groin wound with application of wound vac. I have discussed the risks options and benefits of the procedure with the patient. The patient understands the risks options and benefits and agrees to the procedure. History of Present Illness Reason for Consultation: Groin hematoma with drainage right side Attending Physician: Rob Wilburn History of Present Illness This is a 71yo male who recently underwent bilateral lower extremity embolectomies. He was sent to rehab and returned with rapid ventricular rate from his afib. He did have bilateral groin hematomas at discharge without drainage. The right groin is now draining old blood. Cultures were positive for klebsiella. Patient has had an ejection fraction of 15. Allergies Allergy/AdvReac Type Severity Reaction Status Date / Time No Known Allergies Allergy Verified 04/30/22 15:38 Home Medications Medication Instructions Recorded Confirmed Type furosemide 20 mg tablet 10 mg PO DAILY PRN edema #90 tabs 12/13/21 04/30/22 Rx metformin 500 mg tablet 500 mg PO BID #180 tabs 12/13/21 04/30/22 Rx atorvastatin 80 mg tablet 80 mg PO QPM 01/01/22 04/30/22 History escitalopram oxalate 10 mg tablet 10 mg PO HS 01/01/22 04/30/22 History (Lexapro) spironolactone 25 mg tablet 25 mg PO QPM 01/01/22 04/30/22 History allopurinol 100 mg tablet 100 mg PO DAILY 03/21/22 04/30/22 History metoprolol succinate 25 mg 25 mg PO DAILY #30 tabs 03/21/22 04/30/22 Rx tablet,extended release 24 hr metoprolol succinate 50 mg 100 mg PO QAM 30 days #60 tabs 03/21/22 04/30/22 Rx tablet,extended release 24 hr ropinirole 0.25 mg tablet 0.5 mg PO HS 04/30/22 04/30/22 History apixaban 5 mg tablet 5 mg PO Q12H #60 tabs 05/09/22 Rx ferrous gluconate 324 mg (37.5 mg 324 mg PO BID #90 tabs 05/09/22 Rx iron) tablet gabapentin 300 mg capsule 300 mg PO PM #20 caps 05/09/22 Rx loperamide 2 mg capsule 2 mg PO Q4H PRN loose stool #20 05/09/22 Rx caps oxycodone-acetaminophen 10 mg-325 1 tab PO Q4H PRN pain #20 tabs 05/09/22 Rx mg tablet oxycodone-acetaminophen 5 mg-325 1 tab PO Q4H PRN pain #20 tabs 05/09/22 Rx mg tablet (Percocet) ropinirole 0.25 mg tablet 0.5 mg PO TODAY@2000 #14 tabs 05/09/22 Rx tamsulosin 0.4 mg capsule 0.4 mg PO HS #20 caps 05/09/22 Rx Patient History Medical History (Updated 05/21/22 @ 07:23 by Aaron Sharp MD) Acute CVA (cerebrovascular accident) Anticoagulant long-term use Atrial fibrillation with rapid ventricular response CAD (coronary artery disease) Chronic systolic CHF (congestive heart failure) Depression Diabetes Elevated troponin Gout Hx of subdural hematoma Hyperlipidemia Implantable cardioverter-defibrillator (ICD) discharge Ischemic cardiomyopathy Hx LA S/P PCI and CABG LV (left ventricular) mural thrombus Paroxysmal atrial fibrillation Restless leg syndrome Urinary retention Surgical History (Updated 05/17/22 @ 20:28 by Debra Rebollar MD) AICD (automatic cardioverter/defibrillator) present H/O heart bypass surgery Family History Brother Diabetes Mother Hypertension Father Stroke Denies family history of Ovarian cancer Prostate cancer Myocardial infarction Breast cancer Colorectal cancer Social History Smoking Status: Never smoker Second Hand Exposure: No; Hx Alcohol Use: No Hx Substance Use: No Preferred Language: Gibralt[place] 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: Effective Bed Laborer Required: No Beliefs That Will Affect Care: None Current Living Situation: Family Current Living Situation Comment: lives with his and their son but came to use from [employer] current occupational status: retired Feels Safe at Home: Yes Physical Activity Frequency: 1-2 Times per Week Seatbelt Use: always Assistive Devices: Glasses and Walker Review of Systems Review of Systems: All systems reviewed & are unremarkable except as noted in HPI & below Physical Exam Constitutional: WD/WN, vitals as above Respiratory: normal respiratory effort; no respiratory distress Auscultation: lungs clear to auscultation bilaterally Cardiovascular: Rate/Rhythm: + irregularly irregular Extremities: + abnormal capillary refill (slightly decreased on both feet) dopplers heard on both feet Gastrointestinal (Abdomen): Inspection/Auscultation: abdomen normal to inspection; abdomen not distended Percussion/Palpation: abdomen soft; abdomen nontender Musculoskeletal: no cyanosis or clubbing, extremities motor strength 5/5 Skin: no incision (right groin with cloudy murky drainage from wound) Neurologic: CN's II-XI intact bilaterally and moves all extremities Psychiatric: Orientation: alert and oriented x 3 Results & Data ([facility]) Vital Signs (Past 12 Hours) Vital Signs Temp Pulse Resp BP Pulse Ox O2 Del Method 05/21/22 04:00 104 H 20 92 05/21/22 04:00 125/70 05/21/22 03:30 94 H 17 97 05/21/22 03:00 98 H 22 96 05/21/22 03:00 114/71 05/21/22 02:30 87 17 92 05/21/22 02:00 95 H 20 99 05/21/22 02:00 108/57 L 05/21/22 01:30 87 15 98 05/21/22 01:00 99 H 25 H 95 05/21/22 01:00 108/71 05/21/22 00:30 93 H 27 H 88 L 05/21/22 00:00 90 22 92 05/21/22 00:00 113/68 05/20/22 23:30 88 22 92 05/20/22 23:00 90 22 93 05/20/22 23:00 104/66 05/21/22 04:18 36.8 C 05/20/22 23:00 85 05/20/22 22:30 85 18 95 05/20/22 22:00 89 19 95 05/20/22 22:00 114/55 L 05/20/22 21:30 84 17 97 05/20/22 21:00 80 19 94 05/20/22 21:00 123/60 05/20/22 20:30 85 26 H 91 05/20/22 20:00 87 21 91 05/20/22 20:00 103/53 L 05/20/22 19:30 83 24 91 05/20/22 22:56 Room Air 05/20/22 22:55 36.7 C
[2022-05-21] MEDS: INSULIN ASPART PER UNIT SC SCH ×4 (07:55→20:14)
[2022-05-21] MEDS ORDERED: DexMEDEtomidine HCL IV 100 MCG/ML VIAL IV ONE (08:47)
--- NOTE | 2022-05-21 08:47 | Anesthesiology Consultation ---
Date of Service May 21, 2022 Assessment & Plan (1) Encounter for pre-operative examination: Chart Review Chart Review: order entry initiated History Surgery Operation Date: 05/21/22 11:10 Proposed Procedures p Right Groin Application Wound Vac - Aaron Sharp MD Height/Weight Height: 6 ft 2 in Weight: 105.5 kg Allergies Allergy/AdvReac Type Severity Reaction Status Date / Time No Known Allergies Allergy Verified 04/30/22 15:38 Medications Home Medications Medication Instructions Recorded Confirmed Last Taken furosemide 20 mg tablet 10 mg PO DAILY PRN edema #90 tabs 12/13/21 04/30/22 Unknown metformin 500 mg tablet 500 mg PO BID #180 tabs 12/13/21 04/30/22 04/29/22 atorvastatin 80 mg tablet 80 mg PO QPM 01/01/22 04/30/22 04/29/22 escitalopram oxalate 10 mg tablet 10 mg PO HS 01/01/22 04/30/22 04/29/22 (Lexapro) spironolactone 25 mg tablet 25 mg PO QPM 01/01/22 04/30/22 04/29/22 allopurinol 100 mg tablet 100 mg PO DAILY 03/21/22 04/30/22 04/29/22 metoprolol succinate 25 mg 25 mg PO DAILY #30 tabs 03/21/22 04/30/22 04/29/22 tablet,extended release 24 hr metoprolol succinate 50 mg 100 mg PO QAM 30 days #60 tabs 03/21/22 04/30/22 04/29/22 tablet,extended release 24 hr ropinirole 0.25 mg tablet 0.5 mg PO HS 04/30/22 04/30/22 04/29/22 apixaban 5 mg tablet 5 mg PO Q12H #60 tabs 05/09/22 Unknown ferrous gluconate 324 mg (37.5 mg 324 mg PO BID #90 tabs 05/09/22 Unknown iron) tablet gabapentin 300 mg capsule 300 mg PO PM #20 caps 05/09/22 Unknown loperamide 2 mg capsule 2 mg PO Q4H PRN loose stool #20 05/09/22 Unknown caps oxycodone-acetaminophen 10 mg-325 1 tab PO Q4H PRN pain #20 tabs 05/09/22 Unknown mg tablet oxycodone-acetaminophen 5 mg-325 1 tab PO Q4H PRN pain #20 tabs 05/09/22 Unknown mg tablet (Percocet) ropinirole 0.25 mg tablet 0.5 mg PO TODAY@1999 #14 tabs 05/09/22 Unknown tamsulosin 0.4 mg capsule 0.4 mg PO HS #20 caps 05/09/22 Unknown Active Medications Generic Name Dose Route Start Last Admin Trade Name Freq PRN Reason Stop Dose Admin Acetaminophen 1,000 mg 05/17/22 14:45 05/20/22 23:48 Acetaminophen 500 Mg Tab PO 06/16/22 14:44 1,000 mg Q8H IZAIAH Administration Atorvastatin Calcium 80 mg 05/13/22 15:00 05/20/22 14:26 Atorvastatin 40 Mg Tab PO 06/12/22 20:59 80 mg Q24H IZAIAH Administration Digoxin 0.125 mg 05/13/22 16:00 05/20/22 16:32 Digoxin 0.125 Mg Tab PO 06/12/22 15:59 0.125 mg DAILY@1600 IZAIAH Administration Escitalopram Oxalate 10 mg 05/13/22 21:00 05/20/22 21:22 Escitalopram Oxalate 10 Mg Tab PO 06/12/22 20:59 10 mg HS IZAIAH Administration Ferrous Sulfate 325 mg 05/17/22 08:00 05/20/22 16:33 Ferrous Sulfate 325 Mg Tab PO 06/16/22 07:59 325 mg BIDM IZAIAH Administration Gabapentin 100 mg 05/16/22 10:00 05/20/22 21:23 Gabapentin 100 Mg Cap PO 06/15/22 09:59 100 mg TID IZAIAH Administration Hydromorphone HCl 0.25 mg 05/20/22 12:50 05/21/22 05:53 Hydromorphone Inj 0.5 Mg/0.5 Ml Syr IV 06/02/22 12:17 0.25 mg Q2H PRN Administration Severe Pain Ertapenem 1,000 mg/ Syringe 10 mls @ 2 mls/min 05/20/22 10:00 05/20/22 10:40 IV 05/27/22 09:59 2 mls/min Q24H IZAIAH Administration Heparin Sodium/Dextrose 25,000 units in 500 mls @ 38 mls/hr 05/20/22 10:30 05/21/22 06:21 Heparin Sodium/Dextrose IV 06/19/22 10:29 1,900 units/hr .[id number] IZAIAH 38 mls/hr Titration Protocol 1,900 UNITS/HR Insulin Aspart 0 units 05/13/22 07:36 05/21/22 07:55 Insulin Aspart Per Unit SC 06/12/22 07:35 Not Given ACHS IZAIAH Lactobacillus Acidophilus 2 cap 05/20/22 11:15 05/20/22 11:33 Advanced Probiotic 1250 Mg Capsule PO 06/19/22 11:14 2 cap DAILY IZAIAH Administration Metoprolol Succinate 200 mg 05/15/22 09:00 05/20/22 08:25 Metoprolol Succ 50mg Ext Rel Tab PO 06/14/22 08:59 200 mg QAM IZAIAH Administration Nystatin 5 ml 05/20/22 13:00 05/20/22 21:20 Nystatin Susp 500,000 U/5 Ml Udc PO 05/30/22 12:59 5 ml QID IZAIAH Administration Ropinirole HCl 0.5 mg 05/13/22 19:00 05/20/22 21:21 Ropinirole Hcl 0.25 Mg Tablet PO 06/12/22 18:59 0.5 mg Q24H IZAIAH Administration Spironolactone 25 mg 05/13/22 21:00 05/20/22 21:24 Spironolactone 25 Mg Tab PO 06/12/22 20:59 25 mg QPM IZAIAH Administration Tamsulosin HCl 0.4 mg 05/13/22 21:00 05/20/22 21:25 Tamsulosin Hcl 0.4 Mg Cap PO 06/12/22 20:59 0.4 mg HS IZAIAH Administration Past Medical History Medical History Acute CVA (cerebrovascular accident) Anemia Anticoagulant long-term use Atrial fibrillation with rapid ventricular response CAD (coronary artery disease) Chronic systolic CHF (congestive heart failure) Depression Diabetes Elevated troponin Gout Hx of subdural hematoma Hyperlipidemia Implantable cardioverter-defibrillator (ICD) discharge Ischemic cardiomyopathy Hx GA S/P PCI and CABG LV (left ventricular) mural thrombus Paroxysmal atrial fibrillation Restless leg syndrome Urinary retention Past Family History Family History Brother Diabetes Mother Hypertension Father Stroke Denies family history of Ovarian cancer Prostate cancer Myocardial infarction Breast cancer Colorectal cancer Past Surgical History Surgical History AICD (automatic cardioverter/defibrillator) present H/O heart bypass surgery Social History Smoking Status: Never smoker Do You Dip or Chew Tobacco: No Hx Alcohol Use: No Hx Substance Use: No substance use type: does not use Physical Exam Vital Signs Last Vital Signs Temp 98.2 F 05/21/22 04:18 Pulse 92 H 05/21/22 08:00 Resp 26 H 05/21/22 08:00 BP 135/85 05/21/22 07:00 Pulse Ox 95 05/21/22 08:00 O2 Del Method 05/20/22 22:56 Testing Laboratory Results 05/21/22 05:13 05/21/22 05:16 PT 15.1 Seconds (9.0-12.0) H 05/20/22 05:59 INR 1.4 (0.9-1.1) H 05/20/22 05:59 APTT 28.2 Seconds (21.0-31.0) 05/21/22 05:04 Hemoglobin A1c 6.1 % (4.5-5.6) H 05/14/22 08:08 Urine Color [place] 05/13/22 04:04 Urine Appearance Turbid (Clear) A 05/13/22 04:04 Urine pH 6.0 (4.5-7.5) 05/13/22 04:04 Ur Specific [place] 1.022 (1.000-1.030) 05/13/22 04:04 Urine Protein 1+ (Negative) H 05/13/22 04:04 Urine Glucose (UA) Negative (Negative) 05/13/22 04:04 Urine Ketones Trace (Negative) H 05/13/22 04:04 Urine Nitrite Positive (Negative) A 05/13/22 04:04 Ur Leukocyte Esterase 3+ (Negative) H 05/13/22 04:04 Urine WBC (Auto) >30 /hpf (0-5) H 05/13/22 04:04 Urine RBC (Auto) >30 /hpf (0-4) H 05/13/22 04:04 U Hyaline Cast (Auto) 0 /lpf (0-5) 05/13/22 04:04 U Epithel Cells (Auto) >30 /lpf (0-5) H 05/13/22 04:04 Urine Bacteria (Auto) 4+ (Negative) H 05/13/22 04:04 Blood Type AB Positive 05/19/22 09:05 Antibody Screen NEGATIVE 05/19/22 09:05 05/18/22 Unknown Gram Stain - Final Groin Aerobic and Anaerobic Culture - Preliminary Klebsiella pneumoniae ESBL 05/18/22 Unknown Gram Stain - Final Groin 05/13/22 03:58 Aerobic Blood Culture - Final Blood No growth in Aerobic bottle after 5 days. Anaerobic Blood Culture - Final No growth in Anaerobic bottle after 5 days. 05/13/22 04:18 Aerobic Blood Culture - Final Blood No growth in Aerobic bottle after 5 days. Anaerobic Blood Culture - Final 05/13/22 04:04 Urine Culture - Final Urine,Clean Catch Klebsiella pneumoniae 05/21/22 05/20/22 07:42 21:29 POC Glucose 111 H 117 H Electrocardiogram Date: 05/13/22 Atrial fibrillation with rapid ventricular response, rate 138 bpm Left axis deviation Moderate voltage criteria for LVH, may be normal variant Anteroseptal infarct (cited on or before 03-SEP-2020) ST & T wave abnormality, consider lateral ischemia Abnormal ECG When compared with ECG of 01-MAY-2022 14:17, No significant change was found Confirmed by Monico Thomas ([id number]) on 05/13/2022 5:08:20 PM Chest X-Ray Date: 05/13/22 FINDINGS: Left subclavian pacer/AICD, median sternotomy wires, mediastinal surgical clips and left atrial occluder device are in place. Cardiomegaly is unchanged. There is pulmonary vascular congestion, similar to prior exam. There is no evidence for pulmonary edema. There is no consolidation to suggest pneumonia. IMPRESSION: No significant change in appearance of the chest. Cardiomegaly with pulmonary vascular congestion. Echocardiogram Date: 04/30/22 No prior study for comparison LV is moderately dilated LV systolic function is severely reduced EF =<15% Extensive wall motion abnormalities with only the inferior and lateral base moving, all other ward are akinetic There is a moderate size apical thrombus 1.5 cm x 3.0 cm laminated thrombus adherent to dyskinetic LV apex RV is normal in size and function Mild MR LA is moderately dilated RV systolic pressure is normal IVC is mildly dilated
[2022-05-21] MEDS: ACETAMINOPHEN 500 MG TAB PO SCH ×3 (08:49→23:25)
[2022-05-21] MEDS: FERROUS SULFATE 325 MG TAB PO SCH ×2 (08:49→17:08)
[2022-05-21] MEDS: GABAPENTIN 100 MG CAP PO SCH ×3 (08:50→19:43)
[2022-05-21] MEDS: ADVANCED PROBIOTIC 1250 MG CAPSULE PO SCH (08:50)
[2022-05-21] MEDS: METOPROLOL SUCC 50MG EXT REL TAB PO SCH (08:50)
[2022-05-21] MEDS: CEROVITE ADV FORMULA TAB PO SCH (09:00)
[2022-05-21] MEDS: NYSTATIN SUSP 500,000 U/5 ML UDC PO SCH ×4 (09:00→19:44)
[2022-05-21] MEDS: ERTAPENEM SODIUM 1,000 MG in SYRINGE 0 ML IV SCH (09:01)
[2022-05-21] MEDS ORDERED: ePHEDrine sulfate 50 MG/ML AMP IV PRN (09:33)
[2022-05-21] MEDS ORDERED: ATROPINE SULFATE 0.1 MG/ML 10ML SYR IV PRN (09:33)
[2022-05-21] MEDS ORDERED: ONDANSETRON INJ 2 MG/ML 2 ML VIAL IV PRN (09:33)
[2022-05-21] MEDS ORDERED: fentaNYL citrate 100 MCG/2 ML VIAL IV PRN (09:33)
[2022-05-21] MEDS ORDERED: ETOMIDATE 2 MG/ML 20 ML VIAL IV ONE (11:03)
[2022-05-21] MEDS ORDERED: PHENYLEPHRINE HCL 10 MG/ML VIAL ONE (11:03)
[2022-05-21] MEDS ORDERED: KETAMINE 50 MG/5 ML SYRINGE ONE (11:30)
--- NOTE | 2022-05-21 12:31 | Post Operative Brief Note ---
Immediate Post Op Note v1 Date of Surgery May 21, 2022 Pre & Post Diagnosis Operation Date: 05/21/22 11:10 Pre-Op Diagnosis: Infected Right Groin Wound Post-Op Diagnosis: Infected Right Groin Wound I identified the patient and participated in the time-out.: Yes Procedure Operation Date: 05/21/22 11:10 Actual Procedures Right Groin Debridement, Pulse Lavage and Application Wound Vac(Right) - Aaron Sharp MD Surgeon Aaron Sharp MD Java Software Architect Raleigh Thomas MD Estimated Blood Loss 20 Findings Consistent with Post-Op Diagnosis Liquified clot consistent with old hematoma, small amount of purulence. Necrotic tissue at wound edges, femoral sheath. Exposed common femoral artery, patch intact. No bleeding Drains Gimenez Catheter Complications None
--- NOTE | 2022-05-21 12:51 | Operative Report ---
Post Operative Report Pre & Post Diagnosis Operation Date: 05/21/22 11:10 Pre-Op Diagnosis: Infected Right Groin Wound Post-Op Diagnosis: Infected Right Groin Wound I identified the patient and participated in the time-out.: Yes Procedure Operation Date: 05/21/22 11:10 Actual Procedures Right Groin Debridement, Pulse Lavage and Application Wound Vac(Right) (15x7x5) - Aaron Sharp MD Surgeon Aaron Sharp MD Puffer Tender Raleigh Thomas MD, Sabiha Larios PA-C Estimated Blood Loss 20 Findings Consistent with Post-Op Diagnosis Hematoma, partially liquified with residual old clot underneath staple line to level of right common femoral artery. Necrotic tissue along superficial wound edge. Trace amounts of purulence throughout wound. Right common femoral artery exposed, patch visible. Patch intact with no active bleeding. Wound pulse lavaged and necrotic tissue debrided to level of health tissue Specimens Hematoma for culture Drains Wound vac placement to right groin Complications None Disposition Accompanied Patient To Recovery: Yes Indications Infected right groin hematoma with active purulent drainage Description of Procedure The patient was taken to the operating room and placed in supine position. After general anesthesia was induced, the felicia along the prior right groin were removed. The groin was prepped and draped in a sterile manner. Using blunt dissection, the wound was open and a large quantity of liquified hematoma, intact clot, with traces of purulence was encountered. Culture was taken and remaining hematoma evacuated with suction. Visible 2-0 Vicryl sutures from prior wound closure were cut with Metzenbaum scissors and removed. The wound was then copiously irrigated with pulse lavage, approximally 2L until all clot and purulence was removed. The wound was thoroughly explored revealing that the right common femoral artery was exposed, patch visible. Patch intact with no active bleeding. The femoral sheath was not intact and appeared necrotic. This was excised using Metzenbaum scissors. The superficial wound edges appeared necrotic circumferentially and this tissue was excised using a #10 blade scalpel to the level of healthy bleeding tissue. Hemostasis was then obtained with bovie electrocautery. On final inspection, all remaining tissue appeared viable without gross signs of infection. A Wound Vac was then placed, using white foam to cover the base of the wound and exposed femoral artery. Silver foam was placed on top. The Wound Vac was connected to suction -125 mmMg. Final wound measurements of 15cm x 7cm x10cm. Patient tolerated the procedure well and without complication. Dr. Sharp was present and scrubbed for the entire procedure. Sabiha Larios PA-C assisted due to lack of resident availability and was necessary for prepping, draping, retraction, wound vac placement and was necessary for the case. I attest to the content of the Intraoperative Record and any orders documented therein. Any exceptions are noted below. Supervising Physician Co-Signing Physician Notes Aaron Sharp MD
--- NOTE | 2022-05-21 13:38 | Anesthesiology Progress Note ---
Date of Service May 21, 2022 Anesthesia Post Procedure Vital Signs Vital Signs: Temp Pulse Pulse Pulse Resp BP BP 05/21/22 13:15 87 24 05/21/22 13:15 104/64 05/21/22 13:08 90 22 05/21/22 13:08 95/63 L 05/21/22 12:45 99 H 20 97/61 L 05/21/22 12:55 36.3 C L 83 17 98/64 L 05/21/22 12:35 89 16 101/63 05/21/22 12:29 36.3 C L 96 H 28 H 94/60 L 05/21/22 10:30 91 H 24 05/21/22 10:25 128/96 05/21/22 10:25 121 H 16 05/21/22 10:00 106 H 20 05/21/22 10:00 128/82 05/21/22 09:30 108 H 17 05/21/22 10:36 37.1 C 103 H 20 128/96 05/21/22 09:27 130/98 05/21/22 09:27 102 H 17 05/21/22 09:00 102 H 17 05/21/22 09:00 133/85 05/21/22 08:00 05/21/22 08:00 37 C 05/21/22 08:00 92 H 26 H 05/21/22 07:00 101 H 28 H 05/21/22 07:00 135/85 05/21/22 06:00 95 H 26 H 05/21/22 04:00 104 H 20 05/21/22 04:00 125/70 05/21/22 03:30 94 H 17 05/21/22 03:00 98 H 22 05/21/22 03:00 114/71 05/21/22 02:30 87 17 05/21/22 02:00 95 H 20 05/21/22 02:00 108/57 L 05/21/22 01:30 87 15 05/21/22 01:00 99 H 25 H 05/21/22 01:00 108/71 05/21/22 00:30 93 H 27 H 05/21/22 00:00 90 22 05/21/22 00:00 113/68 05/20/22 23:30 88 22 05/20/22 23:00 90 22 05/20/22 23:00 104/66 05/21/22 04:18 36.8 C 05/20/22 23:00 85 05/20/22 22:30 85 18 05/20/22 22:00 89 19 05/20/22 22:00 114/55 L 05/20/22 21:30 84 17 05/20/22 21:00 80 19 05/20/22 21:00 123/60 05/20/22 20:30 85 26 H 05/20/22 20:00 87 21 05/20/22 20:00 103/53 L 05/20/22 19:30 83 24 05/20/22 19:00 87 25 H 05/20/22 19:00 93/59 L 05/20/22 18:30 96 H 18 05/20/22 22:56 05/20/22 22:55 36.7 C 05/20/22 18:00 88 24 104/60 05/20/22 17:01 90 23 103/70 05/20/22 16:32 87 05/20/22 14:00 89 16 133/70 05/20/22 16:00 82 23 124/69 05/20/22 15:00 93 H Pulse Ox O2 Del Method O2 Flow Rate 05/21/22 13:15 93 05/21/22 13:15 05/21/22 13:08 95 05/21/22 13:08 05/21/22 12:45 100 Oxymask 4 05/21/22 12:55 98 Oxymask 2 05/21/22 12:35 100 Oxymask 10 05/21/22 12:29 98 Oxymask 10 05/21/22 10:30 96 05/21/22 10:25 05/21/22 10:25 95 05/21/22 10:00 96 Room Air 05/21/22 10:00 05/21/22 09:30 96 05/21/22 10:36 95 Room Air 05/21/22 09:27 05/21/22 09:27 97 05/21/22 09:00 96 05/21/22 09:00 05/21/22 08:00 Room Air 05/21/22 08:00 05/21/22 08:00 95 05/21/22 07:00 96 05/21/22 07:00 05/21/22 06:00 96 05/21/22 04:00 92 05/21/22 04:00 05/21/22 03:30 97 05/21/22 03:00 96 05/21/22 03:00 05/21/22 02:30 92 05/21/22 02:00 99 05/21/22 02:00 05/21/22 01:30 98 05/21/22 01:00 95 05/21/22 01:00 05/21/22 00:30 88 L 05/21/22 00:00 92 05/21/22 00:00 05/20/22 23:30 92 05/20/22 23:00 93 05/20/22 23:00 05/21/22 04:18 05/20/22 23:00 05/20/22 22:30 95 05/20/22 22:00 95 05/20/22 22:00 05/20/22 21:30 97 05/20/22 21:00 94 05/20/22 21:00 05/20/22 20:30 91 05/20/22 20:00 91 05/20/22 20:00 05/20/22 19:30 91 05/20/22 19:00 92 05/20/22 19:00 05/20/22 18:30 96 05/20/22 22:56 Room Air 05/20/22 22:55 05/20/22 18:00 94 Room Air 05/20/22 17:01 96 Room Air 05/20/22 16:32 05/20/22 14:00 94 Room Air 05/20/22 16:00 93 Room Air 05/20/22 15:00 Pain Intensity Bilateral Groin: Pain Intensity: 6 Bilateral Foot: Pain Intensity: 8 Right Leg: Pain Intensity: 3 Transfer of Care Handoff Completed per policy Notes Mental Status: alert / awake / arousable Patient Amnestic to Procedure: Yes Nausea / Vomiting: adequately controlled Pain: adequately controlled Airway Patency, RR, SpO2: stable & adequate BP & HR: stable & adequate Hydration State: stable & adequate Anesthetic Complications: no major complications apparent
[2022-05-21 15:01] LABS: Partial Thromboplastin Ratio 2.4
[2022-05-21 15:14] LABS: Partial Thromboplastin Time 64.7 Seconds (21.0-31.0)
[2022-05-21] MEDS: ATORVASTATIN 40 MG TAB PO SCH (15:42)
[2022-05-21] MEDS: DIGOXIN 0.125 MG TAB PO SCH (15:43)
[2022-05-21] MEDS: rOPINIRole HCL 0.25 MG TABLET PO SCH (19:42)
[2022-05-21] MEDS: ESCITALOPRAM OXALATE 10 MG TAB PO SCH (19:43)
[2022-05-21] MEDS: SPIRONOLACTONE 25 MG TAB PO SCH (19:45)
[2022-05-21] MEDS: TAMSULOSIN HCL 0.4 MG CAP PO SCH (19:46)
--- NOTE | 2022-05-21 21:04 | Hospitalist Progress Note ---
Date of Service May 21, 2022 Assessment & Plan (1) Drainage from surgical wound: Plan: b/l groin 2nd ESBL klebsiella. blood cultures negative. remains on IV ertapenem 1gm IV daily. day #2 of such (previously on zosyn/daptomycin). now s/p I & D of right groin surgical site with drainage of hematoma and purulence along with debridement. woundvac placed as well. appreciate vascular surgery assistance. follow new intra-op cultures. Will consult infectious disease for opinion re: abx. (2) Cellulitis of lower extremity: Plan: LLE - resolved. (3) Atrial fibrillation with rapid ventricular response: Plan: Cont digoxin. Recent dig level wnl. Cont metoprolol succinate. Rates again acceptable today. Eliquis on hold. Resuming heparin infusion post-op due to apical thrombus, a.fib, etc. (4) Acute blood loss anemia: Plan: 2nd to bleeding from groin operative sites. H/H again stable today this am. Repeat cbc in am. (5) Ischemic cardiomyopathy: Plan: With resulting chronic systolic CHF, EF 15%. Compensated. Cont metoprolol succinate. Cont spironolactone. (6) UTI (urinary tract infection) due to urinary indwelling Jeff catheter: Plan: 2nd Klebsiella pneumoniae. Has received appropriate abx course while here. (7) Acute occlusion of aortoiliac artery: Plan: Acute thrombus in aorta and bilateral iliac arteries secondary to LV thrombus with embolism. 05/02/22 - s/p Bilateral Iliac and Femoral Embolectomy, Left Common Femoral Artery Endarterectomy with Bovine Patch, Right Common Artery Patch Angioplasty - by Dr Sharp. Now with mild bleeding from his incisions/wounds (resolved), and with evidence of ESBL Klebsiella infection. Cont IV ertapenem. Eliquis on hold but heparin drip resumed today post-op. Is on gabapentin TID for pain control as well as IV dilaudid. He is s/p exploration of right groin wound with I/D of hematoma/purulence, debridement, and woundvac placement. (8) LV (left ventricular) mural thrombus: Plan: Discovered 05/02/22 on echo. Placed on Eliquis at that time. Now on hold. Cont heparin drip. (9) CAD (coronary artery disease): Plan: No evidence of any ACS. Continue metoprolol, statin. 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: (15) Candidiasis of mouth and esophagus: Plan: nystatin 5cc qid (16) Urinary retention: Plan: jeff in place cont flomax (17) Chronic systolic CHF (congestive heart failure): Plan: 2nd ischemic cardiomyopathy compensated (18) AICD (automatic cardioverter/defibrillator) present: (19) Restless leg syndrome: Plan: cont ropinirole (20) Right ankle pain: Plan: no complaint of such today monitor Plan left message for pt's son on his voicemail yesterday cont PCU status Admission and Anticipated Discharge Date Admission Date: May 13, 2022 Subjective saw patient post-op from his I/D of infected right groin incision he has been c/o pain in the surgical site since returning from the OR increasing the dilaudid finally helped his pain during rounds he denied any other complaints except for the right groin pain staff report poor appetite unless his family brings him food from home Review of Systems Review of Systems: gen - fatigued cv - no chest pain pulm - no dyspnea GI - no abd pain or nausea Physical Exam Physical Exam: gen - NAD, pleasant, wanting to sleep skin - pallor; previous cellulitis of LLE resolved; dressings intact L groin; wound vac now in place right groin with debridement of tissue noted in the anterior thigh & groin; extensive ecchymoses left medial thigh neck - no JVD heart - irregularly irregular, s1 s2, 2/6 systolic murmur lungs - CTA b/l; no wheezes; no rales abd - soft NT ND BS+ ext - pulses b/l feet 1-2+; no foot/ankle edema b/l Results & Data Results & Data ([facility]) Vital Signs (Past 12 Hours) Vital Signs Temp Pulse Pulse Pulse Resp BP BP 05/21/22 19:34 37.2 C 88 20 96/69 L 05/21/22 18:00 82 20 05/21/22 18:00 104/64 05/21/22 17:15 104/68 05/21/22 17:15 83 24 05/21/22 17:00 84 23 05/21/22 17:00 97/57 L 05/21/22 16:45 108/58 L 05/21/22 16:45 84 20 05/21/22 16:30 100/59 L 05/21/22 16:30 85 21 05/21/22 16:15 87 23 05/21/22 16:15 99/61 L 05/21/22 16:00 88 25 H 05/21/22 16:00 86/63 L 05/21/22 15:45 82 19 05/21/22 15:45 89/64 L 05/21/22 15:30 93/65 L 05/21/22 15:30 84 14 05/21/22 15:15 87 20 05/21/22 15:15 116/73 05/21/22 15:00 83 19 05/21/22 15:00 90/56 L 05/21/22 14:30 106/67 05/21/22 14:30 82 14 05/21/22 14:15 105/67 05/21/22 14:15 80 15 05/21/22 14:00 88 16 05/21/22 14:00 94/67 L 05/21/22 13:45 113/68 05/21/22 13:45 91 H 16 05/21/22 13:30 98/67 L 05/21/22 13:30 79 11 L 05/21/22 15:43 92 H 05/21/22 13:15 87 24 05/21/22 13:15 104/64 05/21/22 13:08 90 22 05/21/22 13:08 95/63 L 05/21/22 12:45 99 H 20 97/61 L 05/21/22 12:55 36.3 C L 83 17 98/64 L 05/21/22 12:35 89 16 101/63 05/21/22 12:29 36.3 C L 96 H 28 H 94/60 L 05/21/22 10:30 91 H 24 05/21/22 10:25 128/96 05/21/22 10:25 121 H 16 05/21/22 10:00 106 H 20 05/21/22 10:00 128/82 05/21/22 09:30 108 H 17 05/21/22 10:36 37.1 C 103 H 20 128/96 05/21/22 09:27 130/98 05/21/22 09:27 102 H 17 Pulse Ox O2 Del Method O2 Flow Rate 05/21/22 19:34 95 Room Air 05/21/22 18:00 94 05/21/22 18:00 05/21/22 17:15 05/21/22 17:15 96 05/21/22 17:00 94 05/21/22 17:00 05/21/22 16:45 05/21/22 16:45 94 05/21/22 16:30 05/21/22 16:30 94 05/21/22 16:15 92 05/21/22 16:15 05/21/22 16:00 91 05/21/22 16:00 05/21/22 15:45 96 05/21/22 15:45 05/21/22 15:30 05/21/22 15:30 95 05/21/22 15:15 92 05/21/22 15:15 05/21/22 15:00 93 05/21/22 15:00 05/21/22 14:30 05/21/22 14:30 90 05/21/22 14:15 05/21/22 14:15 91 05/21/22 14:00 94 05/21/22 14:00 05/21/22 13:45 05/21/22 13:45 97 05/21/22 13:30 05/21/22 13:30 97 05/21/22 15:43 05/21/22 13:15 93 05/21/22 13:15 05/21/22 13:08 95 05/21/22 13:08 05/21/22 12:45 100 Oxymask 4 05/21/22 12:55 98 Oxymask 2 05/21/22 12:35 100 Oxymask 10 05/21/22 12:29 98 Oxymask 10 05/21/22 10:30 96 05/21/22 10:25 05/21/22 10:25 95 05/21/22 10:00 96 Room Air 05/21/22 10:00 05/21/22 09:30 96 05/21/22 10:36 95 Room Air 05/21/22 09:27 05/21/22 09:27 97 PG Care Time/CCT Total # of Minutes Spent Total Time Spent with Patient: Total time spent is greater than 50% in coordination of care (as documented) at patient's floor/unit and/or counseling patient: Coding Level of Care Code 21047 SUB INP/OBS CARE 2/35MIN Diagnoses Drainage from surgical wound Cellulitis of lower extremity L03.119 Atrial fibrillation with rapid ventricular response I48.91 Acute blood loss anemia D62 Ischemic cardiomyopathy I25.5 UTI (urinary tract infection) due to urinary indwelling Jeff catheter T83.511A; N39.0 Acute occlusion of aortoiliac artery I74.09 LV (left ventricular) mural thrombus I51.3 CAD (coronary artery disease) I25.10 Depression F32.A Subarachnoid hemorrhage I60.9 Diabetes E11.9 Elevated LFTs R79.89 Geographic tongue K14.1 Candidiasis of mouth and esophagus B37.81; B37.0 Urinary retention R33.9 Chronic systolic CHF (congestive heart failure) I50.22 AICD (automatic cardioverter/defibrillator) present Z95.810 Restless leg syndrome G25.81 Right ankle pain M25.571
[2022-05-22] MEDS: ACETAMINOPHEN 500 MG TAB PO SCH ×4 (03:34→16:04)
[2022-05-22 05:49] LABS: Basophils # (auto) 0.04 K/uL (0-0.2); Basophils % (auto) 0.5 %; Eosinophils # (auto) 0.07 K/uL (0-0.50); Hematocrit (blood only) 23.3 % (40.1-51.0); Hemoglobin 7.6 g/dl (14.0-18.0); Immature Granulocytes # (auto) 0.04 K/uL (0.00-0.02); Immature Granulocytes % (auto) 0.5 %; Lymphocytes # (auto) 1.36 K/uL (1.2-3.4); Lymphocytes % (auto) 18.5 %; Mean Corpuscular Hemoglobin 29.1 pg (25.0-34.0); Mean Corpuscular Hgb Conc 32.6 g/dL (32.0-36.0); Mean Corpuscular Volume 89.3 fL (80.0-100.0); Mean Platelet Volume 9.9 fL (9.4-12.4); Monocytes # (auto) 0.72 K/uL (0.24-0.82); Monocytes % (auto) 9.8 %; Neutrophils # (auto) 5.11 K/uL (1.4-6.5); Neutrophils % (auto) 69.7 %; Platelet Count 423 K/uL (130-400); RDW Coefficient of Variation 17.6 % (11.5-14.5); RDW Standard Deviation 56.3 fL (36.4-46.3); Red Blood Count 2.61 M/uL (4.63-6.08); White Blood Count 7.34 K/ul (4.8-10.8)
[2022-05-22 06:24] LABS: Calcium 8.1 mg/dl (8.5-10.1); Creatinine Clr Calc Pharmacy 116.5 ml/min; Est GFR (African American) 107.3 ml/min; Est GFR (Non-African American) 92.5 ml/min; Potassium 4.2 mmol/L (3.5-5.1)
[2022-05-22 06:34] LABS: Partial Thromboplastin Ratio 4.7
[2022-05-22 07:01] LABS: Partial Thromboplastin Time 128.2 Seconds (21.0-31.0)
[2022-05-22 07:33] LABS: Polychromasia 1+
[2022-05-22 07:34] LABS: Spherocytes Occasional
[2022-05-22] MEDS: INSULIN ASPART PER UNIT SC SCH ×4 (07:46→20:48)
[2022-05-22] MEDS: HYDROmorphone INJ 0.5 MG/0.5 ML SYR IV PRN ×3 (09:11→22:26)
[2022-05-22] MEDS: NYSTATIN SUSP 500,000 U/5 ML UDC PO SCH ×4 (10:40→20:58)
[2022-05-22] MEDS: ERTAPENEM SODIUM 1,000 MG in SYRINGE 0 ML IV SCH (10:41)
[2022-05-22] MEDS: CEROVITE ADV FORMULA TAB PO SCH (10:41)
[2022-05-22] MEDS: GABAPENTIN 100 MG CAP PO SCH ×2 (10:42→13:46)
[2022-05-22] MEDS: FERROUS SULFATE 325 MG TAB PO SCH ×2 (10:42→16:07)
[2022-05-22] MEDS: METOPROLOL SUCC 50MG EXT REL TAB PO SCH (10:42)
[2022-05-22] MEDS: ADVANCED PROBIOTIC 1250 MG CAPSULE PO SCH (10:42)
[2022-05-22] MEDS: HEPARIN SODIUM/DEXTROSE 25,000 UNITS/500 ML BAG IV SCH (10:51)
[2022-05-22] MEDS ORDERED: HYDROmorphone INJ 0.5 MG/0.5 ML SYR IV STA (11:19)
[2022-05-22 15:32] LABS: Partial Thromboplastin Ratio 2.8
[2022-05-22 15:42] LABS: Partial Thromboplastin Time 78.3 Seconds (21.0-31.0)
[2022-05-22] MEDS: ATORVASTATIN 40 MG TAB PO SCH (16:03)
[2022-05-22] MEDS: DIGOXIN 0.125 MG TAB PO SCH (16:03)
[2022-05-22] MEDS: rOPINIRole HCL 0.25 MG TABLET PO SCH (20:57)
[2022-05-22] MEDS: TAMSULOSIN HCL 0.4 MG CAP PO SCH (20:58)
[2022-05-22] MEDS: GABAPENTIN 300 MG CAP PO SCH (20:58)
[2022-05-22] MEDS: ESCITALOPRAM OXALATE 10 MG TAB PO SCH (20:58)
--- NOTE | 2022-05-22 21:28 | Hospitalist Progress Note ---
Date of Service May 22, 2022 Assessment & Plan (1) Wound infection after surgery: Plan: b/l groin -- 2nd ESBL klebsiella. blood cultures negative. remains on IV ertapenem 1gm IV daily. day #3 of such (previously on zosyn/daptomycin). original vascular surgery was on 05/02/[address] Sharp (intervention on b/l iliac artery thromboses). now POD #1 -- s/p I & D of right groin surgical site with drainage of hematoma and purulence along with debridement. woundvac placed as well. intra-op culture also growing GNR - likely to be the klebsiella. appreciate vascular surgery assistance. Will consult infectious disease for opinion re: abx. (2) Right ankle pain: Plan: suspect this is neuropathic in origin based on the description of the pain no evidence of septic ankle no evidence of inflammatory arthropathy (gout, etc) femoral nerve irritation? increase gabapentin from 100mg TID to 300mg BID starting tonight. to be complete will check ankle and foot x-rays on right to be complete. will discuss with Dr Sharp as well. (3) Hematoma: Plan: b/l groin s/p I/D of R groin hematoma - POD #[address] L groin hematoma - Dr Sharp to leave alone at this point (4) Cellulitis of lower extremity: Plan: LLE - resolved. (5) Atrial fibrillation with rapid ventricular response: Plan: Cont digoxin. Recent dig level wnl. Cont metoprolol succinate. Rates acceptable. Eliquis on hold. Cont heparin infusion in [place] of Eliquis for now. Will not resume Eliquis until we know for sure no further surgical procedures are needed. (6) Acute blood loss anemia: Plan: 2nd to bleeding from groin operative sites and hematoma formation. H/H lower today but he is hemodynamically stable. Follow for now - repeat cbc in am. (7) Ischemic cardiomyopathy: Plan: With resulting chronic systolic CHF, EF 15%. Compensated. Due to low or low-normal BPs will reduce metoprolol succinate dose from 200mg to 100mg daily. HOLD spironolactone for now. (8) UTI (urinary tract infection) due to urinary indwelling Jeff catheter: Plan: 2nd Klebsiella pneumoniae. Has received appropriate abx course while here. (9) Acute occlusion of aortoiliac artery: Plan: Acute thrombus in aorta and bilateral iliac arteries secondary to LV thrombus with embolism. 05/02/22 - s/p Bilateral Iliac and Femoral Embolectomy, Left Common Femoral Artery Endarterectomy with Bovine Patch, Right Common Artery Patch Angioplasty - by Dr Sharp. Now with mild bleeding from his incisions/wounds, b/l hematomas, and with evidence of ESBL Klebsiella infection. Cont IV ertapenem. POD #1 s/p I & D of R groin hematoma, debridement of tissue, wound vac placement, etc. Eliquis on hold but heparin drip remains. Is on gabapentin TID for pain control as well as IV dilaudid. (10) LV (left ventricular) mural thrombus: Plan: Discovered 05/02/22 on echo. Placed on Eliquis at that time. Now on hold as above. Cont heparin drip. (11) CAD (coronary artery disease): Plan: No evidence of any ACS. Continue metoprolol, statin. (12) Depression: Plan: Continue lexapro (13) Subarachnoid hemorrhage: Plan: H/o SDH in 2020 Required b/l frontal craniotomies in the past. 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: (17) Candidiasis of mouth and esophagus: Plan: nystatin 5cc qid (18) Urinary retention: Plan: jeff in place cont flomax (19) Chronic systolic CHF (congestive heart failure): Plan: 2nd ischemic cardiomyopathy compensated (20) AICD (automatic cardioverter/defibrillator) present: (21) Restless leg syndrome: Plan: cont ropinirole Plan updated pt's son extensively at bedside today Admission and Anticipated Discharge Date Admission Date: May 13, 2022 Subjective pt's son at bedside during the visit pt c/o b/l foot pain much worse on right it is over the ankle (medial aspect) and heel however, the ankle does not hurt with active flexion/extension denies pain in the novoa denies pain in the toes or mid-foot pain comes/goes, is a numbness type feeling, and throbs at times denies lumbar back pain he continues to eat poorly - son knows they can bring food he enjoys from home pt denies pain in groin today (had considerable pain yesterday) denies abd pain patient knows he will need rehab post-d/c woundvac has serosanguinous fluid in the container tele overnight - abebe Review of Systems Review of Systems: gen - no fevers/chills cv - no chest pain pulm - no dyspnea GI - no abd pain, no nausea Physical Exam Physical Exam: gen - NAD, pleasant, poor historian, shifts from topic to topic skin - pallor; previous cellulitis of LLE resolved; dressings intact L groin; wound vac in place right groin with debridement of tissue noted in the anterior thigh & groin; extensive ecchymoses left medial thigh is similar neck - no JVD heart - irregularly irregular, s1 s2, 2/6 systolic murmur lungs - CTA b/l; no wheezes; no rales abd - soft NT ND BS+ ext - pulses b/l feet 1-2+; no foot/ankle edema b/l musculo - right ankle - no pain with active flexion/extension of ankle; no synovitis of the ankle; toes are wnl; mid-foot without swelling/pain; no heat/warmth/redness to suggest infectious process; skin intact on foot neuro - very minimal weakness of right arm and right leg vs left arm/left leg; no facial droop; speech fluent/clear Results & Data Results & Data ([facility]) Vital Signs (Past 12 Hours) Vital Signs Temp Pulse Pulse Resp BP Pulse Ox O2 Del Method 05/22/22 21:00 36.5 C 84 20 107/80 99 Nasal Cannula 05/22/22 16:03 91 H 05/22/22 15:51 36.6 C 89 18 103/73 96 Room Air Laboratory Results Laboratory Results - last 24 hr 05/22/22 05/22/22 05/22/22 05:22 05:22 05:22 WBC 7.34 RBC 2.61 L Hgb 7.6 L Hct 23.3 L MCV 89.3 MCH 29.1 MCHC 32.6 RDW Std Deviation 56.3 H RDW Coeff of [place] 17.6 H Plt Count 423 H MPV 9.9 Immature Gran % (Auto) 0.5 Neut % (Auto) 69.7 Lymph % (Auto) 18.5 [place] % (Auto) 9.8 Eos % (Auto) 1.0 Baso % (Auto) 0.5 Neut # (Auto) 5.11 Lymph # (Auto) 1.36 [place] # (Auto) 0.72 Eos # (Auto) 0.07 Baso # (Auto) 0.04 Immature Gran # (Auto) 0.04 H Polychromasia 1+ Spherocytes Occasional APTT 128.2 H* PTT Ratio 4.7 Sodium 133 L Potassium 4.2 Chloride 102 Carbon Dioxide 25 Anion Gap 6 BUN 18 Creatinine 0.72 Est Cr Clr Drug Dosing 116.5 Est GFR ( Amer) 107.3 Est GFR (Non-Af Amer) 92.5 BUN/Creatinine Ratio 25.0 H Glucose 161 H POC Glucose Calcium 8.1 L 05/22/22 05/22/22 05/22/22 07:06 11:34 14:48 WBC RBC Hgb Hct MCV MCH MCHC RDW Std Deviation RDW Coeff of [place] Plt Count MPV Immature Gran % (Auto) Neut % (Auto) Lymph % (Auto) [place] % (Auto) Eos % (Auto) Baso % (Auto) Neut # (Auto) Lymph # (Auto) [place] # (Auto) Eos # (Auto) Baso # (Auto) Immature Gran # (Auto) Polychromasia Spherocytes APTT 78.3 H* PTT Ratio 2.8 Sodium Potassium Chloride Carbon Dioxide Anion Gap BUN Creatinine Est Cr Clr Drug Dosing Est GFR ( Amer) Est GFR (Non-Af Amer) BUN/Creatinine Ratio Glucose POC Glucose 159 H 121 H Calcium 05/22/22 05/22/22 16:27 20:09 WBC RBC Hgb Hct MCV MCH MCHC RDW Std Deviation RDW Coeff of [place] Plt Count MPV Immature Gran % (Auto) Neut % (Auto) Lymph % (Auto) [place] % (Auto) Eos % (Auto) Baso % (Auto) Neut # (Auto) Lymph # (Auto) [place] # (Auto) Eos # (Auto) Baso # (Auto) Immature Gran # (Auto) Polychromasia Spherocytes APTT PTT Ratio Sodium Potassium Chloride Carbon Dioxide Anion Gap BUN Creatinine Est Cr Clr Drug Dosing Est GFR ( Amer) Est GFR (Non-Af Amer) BUN/Creatinine Ratio Glucose POC Glucose 100 H 124 H Calcium PG Care Time/CCT Total # of Minutes Spent Total Time Spent with Patient: Total time spent is greater than 50% in coordination of care (as documented) at patient's floor/unit and/or counseling patient: Coding Level of Care Code 24322 SUB INP/OBS CARE 3/50MIN Diagnoses Wound infection after surgery T81.49XA Right ankle pain M25.571 Hematoma T14.8XXA Cellulitis of lower extremity L03.119 Atrial fibrillation with rapid ventricular response I48.91 Acute blood loss anemia D62 Ischemic cardiomyopathy I25.5 UTI (urinary tract infection) due to urinary indwelling Jeff catheter T83.511A; N39.0 Acute occlusion of aortoiliac artery I74.09 LV (left ventricular) mural thrombus I51.3 CAD (coronary artery disease) I25.10 Depression F32.A Subarachnoid hemorrhage I60.9 Diabetes E11.9 Elevated LFTs R79.89 Geographic tongue K14.1 Candidiasis of mouth and esophagus B37.81; B37.0 Urinary retention R33.9 Chronic systolic CHF (congestive heart failure) I50.22 AICD (automatic cardioverter/defibrillator) present Z95.810 Restless leg syndrome G25.81
[2022-05-23 00:13] LABS: Partial Thromboplastin Ratio 2.5
[2022-05-23 00:29] LABS: Partial Thromboplastin Time 68.9 Seconds (21.0-31.0)
[2022-05-23] MEDS: ACETAMINOPHEN 500 MG TAB PO SCH ×3 (00:45→16:24)
[2022-05-23] MEDS: HEPARIN SODIUM/DEXTROSE 25,000 UNITS/500 ML BAG IV SCH (04:24)
[2022-05-23] MEDS: HYDROmorphone INJ 0.5 MG/0.5 ML SYR IV PRN ×4 (04:37→19:18)
[2022-05-23 07:34] LABS: Basophils # (auto) 0.06 K/uL (0-0.2); Basophils % (auto) 0.9 %; Eosinophils # (auto) 0.13 K/uL (0-0.50); Hematocrit (blood only) 24.8 % (40.1-51.0); Immature Granulocytes # (auto) 0.03 K/uL (0.00-0.02); Immature Granulocytes % (auto) 0.5 %; Lymphocytes # (auto) 1.48 K/uL (1.2-3.4); Lymphocytes % (auto) 22.7 %; Mean Corpuscular Hemoglobin 29.1 pg (25.0-34.0); Mean Corpuscular Hgb Conc 32.3 g/dL (32.0-36.0); Mean Corpuscular Volume 90.2 fL (80.0-100.0); Mean Platelet Volume 9.8 fL (9.4-12.4); Monocytes # (auto) 0.74 K/uL (0.24-0.82); Monocytes % (auto) 11.3 %; Neutrophils # (auto) 4.08 K/uL (1.4-6.5); Neutrophils % (auto) 62.6 %; Platelet Count 454 K/uL (130-400); RDW Coefficient of Variation 17.7 % (11.5-14.5); RDW Standard Deviation 57.6 fL (36.4-46.3); Red Blood Count 2.75 M/uL (4.63-6.08); White Blood Count 6.52 K/ul (4.8-10.8)
[2022-05-23 07:55] LABS: BUN Creatinine Ratio 22.4 (10-20); C Reactive Protein 13.22 mg/dl (0-0.5); Calcium 8.3 mg/dl (8.5-10.1); Creatinine Clr Calc Pharmacy 128.1 ml/min; Est GFR (African American) 110.5 ml/min; Est GFR (Non-African American) 95.3 ml/min; Potassium 4.3 mmol/L (3.5-5.1)
[2022-05-23 08:00] LABS: Partial Thromboplastin Ratio 1.9
[2022-05-23 08:02] LABS: Partial Thromboplastin Time 51.7 Seconds (21.0-31.0)
[2022-05-23] MEDS: INSULIN ASPART PER UNIT SC SCH ×4 (08:17→20:14)
[2022-05-23] MEDS: METOPROLOL SUCC 50MG EXT REL TAB PO SCH (08:22)
[2022-05-23] MEDS: NYSTATIN SUSP 500,000 U/5 ML UDC PO SCH ×4 (08:23→20:17)
[2022-05-23] MEDS: ADVANCED PROBIOTIC 1250 MG CAPSULE PO SCH (08:23)
[2022-05-23] MEDS: CEROVITE ADV FORMULA TAB PO SCH (08:24)
[2022-05-23] MEDS: FERROUS SULFATE 325 MG TAB PO SCH ×2 (08:24→16:26)
--- NOTE | 2022-05-23 09:34 | XRay Report ---
XR foot RT 2V CLINICAL HISTORY: Right foot pain. COMPARISON: CTA with runoff April 30, 2022. FINDINGS: Alignment of the right foot is anatomic. Tarsometatarsal joints are intact. There is no ac [place] fracture. Posterior calcaneal spurring is noted. No evidence for acute osteomyelitis. There is no osseous lesion. Joint space narrowing of the interphalangeal joint of the right first toe is noted. IMPRESSION: No acute fractures. ACT 112: Negative or not required by law. Electronically signed by: Dami Gongora M.D. 05/23/2022 9:33 AM
--- NOTE | 2022-05-23 09:54 | Infectious Disease Consult ---
Date of Consultation May 23, 2022 Assessment & Plan (1) Wound infection after surgery: Plan 71 yo M with a history of CAD s/p PCI and CABG, CHF, s/p ICD, PAD, afib, hemorrhagic stroke, diabetes, recent hospitalization with acute occlusion of L aortoiliac artery s/p bilateral iliac and femoral embolectomy, L common femoral artery endarterectomy with bovine patch, R common artery patch angioplasty (05/02/22) c/b bilateral groin hematomas, who presented on 05/13 with afib with RVR, leukocytosis to 22.56, and was found to have ESBL Kleb pneumo groin wound infections. Hospital course c/b R groin bleeding requiring temporary transfer to the ICU. He was taken to the OR on 05/21 for debridement of the R groin wound and wound vac placement. OR findings included partially liquified hematoma with residual clot, trace amounts of purulence throughout the wound, necrotic tissue along superficial wound edge. Per operative note, the clot was removed, and the wound was explored revealing that the R common femoral artery was exposed and patch was visible, but intact with no active bleeding. The femoral sheath was not intact and appeared necrotic, and was excised. Per my discussion with surgeon Dr. Sharp, although the wound appears large and deep, there was no concern for deeper wound/patch infection. The deeper tissue appeared to be old hematoma, and there was some murky serous fluid in the more superficial regions, without overt pus. Pt has been on ertapenem since 05/20. Pt notes improvement in the appearance of his wounds, and leukocytosis has resolved. Antimicrobial course: Ertapenem 05/20 - present Pip-tazo 05/18 - 05/20 Daptomycin 05/18 - 05/19 Ceftriaxone 05/13 - 05/18 Vancomycin 05/13 - 05/18 Problems: #Acute occlusion of L aortoiliac artery s/p bilateral iliac and femoral embolectomy, L common femoral artery endarterectomy with bovine patch, R common artery patch angioplasty (05/02/22) c/b bilateral groin hematomas and ESBL Kleb pneumo wound infections, s/p R groin debridement and wound vac (05/21/22) #Kleb pneumo UTI Recommendations: -Continue ertapenem 1 g q24h while inpatient -Discussed with surgeon, who was not concerned for a deeper patch infection. Therefore, if pt continues to improve, anticipate treating with a 2 week course of antibiotics for skin/soft tissue infection (from date of source control 05/21 - 06/03). On discharge, if pt continues to improve, can transition to levofloxacin 750 mg PO q24h to complete his course -Continue good wound care Will sign off. Please page [facility] Center with further questions. Consultation Information Consultation was provided via telemedicine using two-way real-time interactive telecommunication between the patient and the telemedicine provider. For the duration of the visit, the provider was performing the assessment from a different facility than the patient. This includesuse of bluetooth stethoscope forauscultationperformed by the telepresenter that the telemedicine provider can hear if described in the physical exam. Lesson Instructor contact information: Please call [facility] [phone]. (Phone Number For Physician Use Only) After establishing a telemedicine visit, patient was: Patient was verified with two unique identifiers, Patient/authorized rep acknowledged consent and understanding and Gave permission to continue telehealth session Time Spent with Patient: Initial => 40 min History of Present Illness Reason for Consultation: Wound infection Requesting Physician: Rob Espana Attending Physician: Rob Wilburn History of Present Illness 71 yo M with a history of CAD s/p PCI and CABG, CHF, s/p ICD, PAD, afib, hemorr hagic stroke, diabetes who presented on 05/13 with afib with RVR and leukocytosis. He had recently been hospitalized from 04/30 - 05/09 for acute occlusion of L aortoiliac artery, likely an embolus from afib, s/p bilateral iliac and femoral embolectomy, L common femoral artery endarterectomy with bovine patch, R common artery patch angioplasty (05/02/22), c/b bilateral groin hematomas. He was discharged to [facility], where he was noted to have some breathing issues and found to be in afib with RVR, and sent to the hospital. On presentation, he was afebrile, tachycardic to 130s-140s, hypertensive. Labs showed WBC 22.56 (up from 16.83 on discharge), Cr 0.79, Tbili 2.5, UA with >30 WBCs, COVID-19/flu/RSV negative. CXR showed pulmonary vascular congestion, similar to prior exam, no evidence of pulmonary edema, no consolidation to suggest pneumonia. He was noted to possibly have LLE cellulitis and was started on vancomycin. Ceftriaxone was added due to c/f UTI. His leukocytosis improved, and his urine culture grew mccollum-sensitive Kleb pneumo. On 05/18, he was noted to have significant discharge from groin/thigh--the discharge was noted to be clear, and the area without erythema or tenderness, and leukocytosis was resolved. However, given pt's multiple risk factors, antibiotics were escalated to daptomycin and pip-tazo. A CT of bilateral femurs was performed on 05/18, and showed a slight increase in size of bilateral anterior thigh/groin hematomas compared to prior, but demonstrating decreased density consistent with expected evolution--secondary infection impossible to exclude by imaging but considered less likely. Wound cultures were obtained of the groin wounds, which ultimately grew ESBL Kleb pneumo plus low counts of probable skin gwen. On 05/19, he was transferred to the ICU as his R groin was bleeding profusely and his BP was lower than usual. His antibiotics were changed to ertapenem on 05/20, when his wound culture result returned. Vascular surgery was consulted and took the patient to the OR on 05/21 for debridement of the R groin wound and wound vac placement. OR findings included partially liquified hematoma with residual clot, trace amounts of purulence throughout the wound, necrotic tissue along superficial wound edge. OR culture is growing ESBL Kleb pneumo. ID is consulted to assist with antibiotic management. Today, pt denies complaints. Reports some groin pain. States his groin wounds have been improving. Allergies Allergy/AdvReac Type Severity Reaction Status Date / Time No Known Allergies Allergy Verified 05/21/22 10:34 Home Medications Medication Instructions Recorded Confirmed Type furosemide 20 mg tablet 10 mg PO DAILY PRN edema #90 tabs 12/13/21 04/30/22 Rx metformin 500 mg tablet 500 mg PO BID #180 tabs 12/13/21 04/30/22 Rx atorvastatin 80 mg tablet 80 mg PO QPM 01/01/22 04/30/22 History escitalopram oxalate 10 mg tablet 10 mg PO HS 01/01/22 04/30/22 History (Lexapro) spironolactone 25 mg tablet 25 mg PO QPM 01/01/22 04/30/22 History allopurinol 100 mg tablet 100 mg PO DAILY 03/21/22 04/30/22 History metoprolol succinate 25 mg 25 mg PO DAILY #30 tabs 03/21/22 04/30/22 Rx tablet,extended release 24 hr metoprolol succinate 50 mg 100 mg PO QAM 30 days #60 tabs 03/21/22 04/30/22 Rx tablet,extended release 24 hr ropinirole 0.25 mg tablet 0.5 mg PO HS 04/30/22 04/30/22 History apixaban 5 mg tablet 5 mg PO Q12H #60 tabs 05/09/22 Rx ferrous gluconate 324 mg (37.5 mg 324 mg PO BID #90 tabs 05/09/22 Rx iron) tablet gabapentin 300 mg capsule 300 mg PO PM #20 caps 05/09/22 Rx loperamide 2 mg capsule 2 mg PO Q4H PRN loose stool #20 05/09/22 Rx caps oxycodone-acetaminophen 10 mg-325 1 tab PO Q4H PRN pain #20 tabs 05/09/22 Rx mg tablet oxycodone-acetaminophen 5 mg-325 1 tab PO Q4H PRN pain #20 tabs 05/09/22 Rx mg tablet (Percocet) ropinirole 0.25 mg tablet 0.5 mg PO TODAY@2000 #14 tabs 05/09/22 Rx tamsulosin 0.4 mg capsule 0.4 mg PO HS #20 caps 05/09/22 Rx Patient History Medical History Acute CVA (cerebrovascular accident) Anemia Anticoagulant long-term use Atrial fibrillation with rapid ventricular response CAD (coronary artery disease) Chronic systolic CHF (congestive heart failure) Depression Diabetes Elevated troponin Gout Hx of subdural hematoma Hyperlipidemia Implantable cardioverter-defibrillator (ICD) discharge Ischemic cardiomyopathy Hx PR S/P PCI and CABG LV (left ventricular) mural thrombus Paroxysmal atrial fibrillation Restless leg syndrome Urinary retention Surgical History AICD (automatic cardioverter/defibrillator) present H/O heart bypass surgery Family History Brother Diabetes Mother Hypertension Father Stroke Denies family history of Ovarian cancer Prostate cancer Myocardial infarction Breast cancer Colorectal cancer Social History Smoking Status: Never smoker Second Hand Exposure: No; Hx Alcohol Use: No Hx Substance Use: No Preferred Language: Mohawk 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: Effective Metal Forger'S Assistant Required: No Beliefs That Will Affect Care: None Current Living Situation: Family Current Living Situation Comment: lives with his and their son but came to use from [employer] current occupational status: retired Feels Safe at Home: Yes Physical Activity Frequency: 1-2 Times per Week Seatbelt Use: always Assistive Devices: Glasses and Walker Review of System A complete ROS was performed and is negative except as mentioned in the HPI. Physical Exam Physical Exam: GEN: laying in bed in NAD. HEENT: Normocephalic, atraumatic. RESP: No increased work of breathing SKIN: R groin wound with wound vac in place, no surrounding erythema. L groin incision with felicia, no surrounding erythema, some yellow drainage on overlying gauze. Image of wound without wound vac from today reviewed. NEURO: Alert Results & Data ([facility]) Vital Signs (Past 12 Hours) Vital Signs Temp Pulse Pulse Pulse Resp BP Pulse Ox 05/23/22 07:06 36.5 C 87 19 106/55 L 97 05/23/22 02:53 37.1 C 98 H 20 101/67 95 05/22/22 23:36 91 H 05/22/22 22:50 36.7 C 90 18 94/65 L 94 O2 Del Method 05/23/22 07:06 Room Air 05/23/22 02:53 Room Air 05/22/22 23:36 05/22/22 22:50 Room Air Laboratory Results Short CBC 05/23/22 Range/Units 06:58 WBC 6.52 (4.8-10.8) K/ul Hgb 8.0 L (14.0-18.0) g/dl Hct 24.8 L (40.1-51.0) % Plt Count 454 H (130-400) K/uL BMP 05/23/22 06:58 Sodium 134 L Potassium 4.3 Chloride 102 Carbon Dioxide 29 BUN 15 Creatinine 0.67 Glucose 115 H Calcium 8.3 L Diagnostic Findings Microbiology: 05/21 R groin wound cx: ESBL Kleb pneumo ESBL K pne RX M.I.C. --- --------- Amox/Clav S <=8/4 Amp/Sul S <=8/4 Cefazolin R >16 Cefepime R >16 Cefotaxime R >16 Ceftriaxone R >2 Ciprofloxacin I 0.5 Ertapenem S <=0.5 Gentamicin S <=4 Levofloxacin S <=0.5 Meropenem S <=1 Tobramycin S <=4 Trimeth/Sulfa S <=2/38 Pip/Tazo S <=16 1/ L groin wound cx: ESBL Kleb pneumo plus low counts of probable skin gwen 05/18 R groin wound cx: ESBL Kleb pneumo plus low counts of probable skin gwen 05/13 BCx x2: NG 05/13 UCx: >100k Kleb pneumo Kleb pneum RX M.I.C. --- --------- Amox/Clav S <=8/4 Amp/Sul S <=8/4 Cefazolin S <=2 Cefepime S <=2 Ceftriaxone S <=1 Ciprofloxacin S <=0.25 Ertapenem S <=0.5 Gentamicin S <=4 Levofloxacin S <=0.5 Meropenem S <=1 Nitrofurantoin I 64 Tobramycin S <=4 Trimeth/Sulfa S <=2/38 Pip/Tazo S <=16 Medications Administered Current Inpatient Medications Acetaminophen (Acetaminophen 500 Mg Tab) 1,000 mg PO Q8H [facility] Stop: 06/16/22 14:44 Last Admin: 05/23/22 08:23 Dose: 1,000 mg Atorvastatin Calcium (Atorvastatin 40 Mg Tab) 80 mg PO Q24H [facility] Stop: 06/12/22 20:59 Last Admin: 05/22/22 16:03 Dose: 80 mg Dextrose (Dextrose 50% 50 Ml Syringe) 25 - 50 ml IV UD PRN; Protocol PRN Reason: Hypoglycemia Protocol Stop: 06/12/22 07:35 Digoxin (Digoxin 0.125 Mg Tab) 0.125 mg PO DAILY@1600 [facility] Stop: 06/12/22 15:59 Last Admin: 05/22/22 16:03 Dose: 0.125 mg Escitalopram Oxalate (Escitalopram Oxalate 10 Mg Tab) 10 mg PO HS [facility] Stop: 06/12/22 20:59 Last Admin: 05/22/22 20:58 Dose: 10 mg Ferrous Sulfate (Ferrous Sulfate 325 Mg Tab) 325 mg PO BIDM [facility] Stop: 06/16/22 07:59 Last Admin: 05/23/22 08:24 Dose: 325 mg Gabapentin (Gabapentin 300 Mg Cap) 300 mg PO HS [facility] Stop: 06/21/22 20:59 Last Admin: 05/22/22 20:58 Dose: 300 mg Glucagon (Glucagon For Inj 1 Mg Vial) 1 mg SQ UD PRN; Protocol PRN Reason: Hypoglycemia Protocol Stop: 06/12/22 07:35 Glucose (Glucose 40% Gel 15 Gm Tube) 15 - 30 gm PO UD PRN; Protocol PRN Reason: Hypoglycemia Protocol Stop: 06/12/22 07:35 Glucose (Glucose 10 Tab/Tube) 4 - 8 tab PO UD PRN; Protocol PRN Reason: Hypoglycemia Treatment Stop: 06/12/22 07:35 Hydromorphone HCl (Hydromorphone Inj 0.5 Mg/0.5 Ml Syr) 0.5 mg IV Q3H PRN PRN Reason: pain Stop: 06/03/22 12:49 Last Admin: 05/23/22 04:37 Dose: 0.5 mg Ertapenem 1,000 mg/ Syringe 10 mls @ 2 mls/min IV Q24H [facility] Stop: 05/27/22 09:59 Last Admin: 05/22/22 10:41 Dose: 2 mls/min Heparin Sodium/Dextrose (Heparin Sodium/Dextrose) 25,000 units in 500 mls @ 27 mls/hr IV .[id number] [facility]; Protocol Stop: 06/19/22 10:29 Last Titration: 05/23/22 08:27 Dose: 1,350 units/hr, 27 mls/hr Insulin Aspart (Insulin Aspart Per Unit) 0 units SC ACHS [facility] Stop: 06/12/22 07:35 Last Admin: 05/23/22 08:17 Dose: Not Given Lactobacillus Acidophilus (Advanced Probiotic 1250 Mg Capsule) 2 cap PO DAILY [facility] Stop: 06/19/22 11:14 Last Admin: 05/23/22 08:23 Dose: 2 cap Metoprolol Succinate (Metoprolol Succ 50mg Ext Rel Tab) 100 mg PO QAM [facility] Stop: 06/21/22 08:59 Last Admin: 05/23/22 08:22 Dose: 100 mg Miscellaneous (Carbohydrates For Hypoglycemia ) 15 - 30 gm PO UD PRN PRN Reason: Hypoglycemia Protocol Stop: 06/12/22 07:35 Multivitamins/Minerals (Cerovite Adv Formula Tab) 1 tab PO QAM [facility] Stop: 06/20/22 08:59 Last Admin: 05/23/22 08:24 Dose: 1 tab Nystatin (Nystatin Susp 500,000 U/5 Ml Udc) 5 ml PO QID [facility] Stop: 05/30/22 12:59 Last Admin: 05/23/22 08:23 Dose: 5 ml Ondansetron HCl (Ondansetron Inj 2 Mg/Ml 2 Ml Vial) 4 mg IV Q4H PRN PRN Reason: Nausea Stop: 06/12/22 07:35 Last Admin: 05/21/22 14:06 Dose: 4 mg Ropinirole HCl (Ropinirole Hcl 0.25 Mg Tablet) 0.5 mg PO Q24H [facility] Stop: 06/12/22 18:59 Last Admin: 05/22/22 20:57 Dose: 0.5 mg Spironolactone (Spironolactone 25 Mg Tab) 25 mg PO QPM [facility] Stop: 06/12/22 20:59 Last Admin: 05/21/22 19:45 Dose: 25 mg Tamsulosin HCl (Tamsulosin Hcl 0.4 Mg Cap) 0.4 mg PO HS [facility] Stop: 06/12/22 20:59 Last Admin: 05/22/22 20:58 Dose: 0.4 mg
[2022-05-23] MEDS: ERTAPENEM SODIUM 1,000 MG in SYRINGE 0 ML IV SCH (09:57)
[2022-05-23] MEDS ORDERED: HYDROmorphone INJ 0.5 MG/0.5 ML SYR IV STA (10:58)
--- NOTE | 2022-05-23 11:17 | XRay Report ---
RIGHT ANKLE 2 VIEWS HISTORY: R ankle pain COMPARISON: None. FINDINGS: There is no fracture or dislocation. Posterior calcaneal spur is noted. Mild degenerative c hanges at the tibiotalar joint. No significant soft tissue swelling. No radiopaque foreign bodies. 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 No acute fractures. ACT 112: Negative or not required by law. Electronically signed by: Aris Clayton M.D. 05/23/2022 11:16 AM
--- NOTE | 2022-05-23 12:54 | Surgery Progress Note ---
Date of Service May 23, 2022 Assessment & Plan (1) Infected wound: Plan: R groin wound vac changed today. Good early granulation and minimal bleeding noted. R femoral artery/patch remains visible. Pt tolerated well with 0.25 dilaudid. L groin remains intact with mild serous drainage and old hematoma. Will reeval on Thursday. Admission and Anticipated Discharge Date Admission Date: May 13, 2022 Subjective 71 yo m POD #2 after R groin I&D, seen in f/u today. Pt states he has some pain in R groin, but not much. Most of his pain is in his ankle area. No other new complaints. Review of Systems Review of Systems: All systems reviewed & are unremarkable except as noted in HPI & below Physical Exam Constitutional: WD/WN, vitals as above Cardiovascular: Vessels: posterior tibial pulses present (doppler) and dorsalis pedis pulses present (doppler); + abnormal peripheral pulses Extremities: normal capillary refill Skin: + wound (R groin deep wound with vac, good early granulation, mild bleeding.) and + incision (L groin intact with felicia, +hematoma, mild serous drainage from distal); no erythema Results & Data ([facility]) Vital Signs (Past 12 Hours) Vital Signs Temp Pulse Pulse Pulse Resp BP Pulse Ox 05/23/22 08:00 05/23/22 07:00 94 H 05/23/22 11:53 36.8 C 92 H 20 100/63 95 05/23/22 07:06 36.5 C 87 19 106/55 L 97 05/23/22 02:53 37.1 C 98 H 20 101/67 95 O2 Del Method 05/23/22 08:00 Room Air 05/23/22 07:00 05/23/22 11:53 Room Air 05/23/22 07:06 Room Air 05/23/22 02:53 Room Air
[2022-05-23] MEDS: ATORVASTATIN 40 MG TAB PO SCH (16:24)
[2022-05-23] MEDS: DIGOXIN 0.125 MG TAB PO SCH (16:25)
--- NOTE | 2022-05-23 20:07 | Hospitalist Progress Note ---
Date of Service May 23, 2022 Assessment & Plan (1) Wound infection after surgery: Plan: b/l groin -- 2nd ESBL klebsiella. blood cultures negative. remains on IV ertapenem 1gm IV daily. day #4 of such (previously on zosyn/daptomycin). original vascular surgery was on 05/02/[address] Sharp (intervention on b/l iliac artery thromboses). now POD #2 -- s/p I & D of right groin surgical site with drainage of hematoma and purulence along with debridement. woundvac now in place. woundvasc was exchanged today. intra-op culture grew ESBL klebsiella. appreciate vascular surgery assistance. infectious disease consult requested & completed today - they advise once daily IV ertapenem while here, then change to PO levaquin 750mg daily at discharge. total 14 days of IV/PO therapy. (2) Right ankle pain: Plan: suspect this is neuropathic in origin based on the description of the pain no evidence of septic ankle no evidence of inflammatory arthropathy (gout, etc) x-rays of R foot/ankle wnl. femoral nerve irritation? increased gabapentin from 100mg TID to 300mg BID starting last pm with improved pain today. monitor. (3) Hematoma: Plan: b/l groin s/p I/D of R groin hematoma - POD #[address] L groin hematoma - Dr Sharp to leave alone at this point (4) Cellulitis of lower extremity: Plan: LLE - resolved. (5) Atrial fibrillation with rapid ventricular response: Plan: Cont digoxin. Recent dig level wnl. Cont metoprolol succinate. Rates acceptable. Eliquis on hold. Cont heparin infusion in geeta of Eliquis for now. Will not resume Eliquis until we know for sure no further surgical procedures are needed. (6) Acute blood loss anemia: Plan: 2nd to bleeding from groin operative sites and hematoma formation. H/H lower today but he is hemodynamically stable. Follow for now - repeat cbc in am. (7) Ischemic cardiomyopathy: Plan: With resulting chronic systolic CHF, EF 15%. Compensated. Due to low or low-normal BPs will reduce metoprolol succinate dose from 200mg to 100mg daily. HOLD spironolactone for now. (8) UTI (urinary tract infection) due to urinary indwelling Jeff catheter: Plan: 2nd Klebsiella pneumoniae. Has received appropriate abx course while here. (9) Acute occlusion of aortoiliac artery: Plan: Acute thrombus in aorta and bilateral iliac arteries secondary to LV thrombus with embolism. 05/02/22 - s/p Bilateral Iliac and Femoral Embolectomy, Left Common Femoral Artery Endarterectomy with Bovine Patch, Right Common Artery Patch Angioplasty - by Dr Sharp. Now with mild bleeding from his incisions/wounds, b/l hematomas, and with evidence of ESBL Klebsiella infection. Cont IV ertapenem. POD #2 s/p I & D of R groin hematoma, debridement of tissue, wound vac plac ement, etc. Eliquis on hold but heparin drip remains. Is on gabapentin BID for pain control as well as IV dilaudid prn. (10) LV (left ventricular) mural thrombus: Plan: Discovered 05/02/22 on echo. Placed on Eliquis at that time. Now on hold as above. Cont heparin drip. (11) CAD (coronary artery disease): Plan: No evidence of any ACS. Continue metoprolol, statin. (12) Depression: Plan: Continue lexapro Consider adding remeron - he seems depressed (although he denies), has poor appetite, etc (13) Subarachnoid hemorrhage: Plan: H/o SDH in 2020 Required b/l frontal craniotomies in the past. 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: Plan: nothing needed (17) Candidiasis of mouth and esophagus: Plan: nystatin 5cc qid looks better (18) Urinary retention: Plan: jeff in place cont flomax (19) Chronic systolic CHF (congestive heart failure): Plan: 2nd ischemic cardiomyopathy compensated (20) AICD (automatic cardioverter/defibrillator) present: (21) Restless leg syndrome: Plan: cont ropinirole Plan updated pt's son extensively at bedside yesterday left message for son today on his voicemail Admission and Anticipated Discharge Date Admission Date: May 13, 2022 Subjective patient resting comfortably during the visit staff report very little appetite including foods that his family is bringing from home he states "I've always eaten very little like this" denies cp, dyspnea, orthopnea right foot pain IS improved groin pain stable no diarrhea tele - rate controlled a.fib Review of Systems Review of Systems: gen - no fevers/chills cv - no cp pulm - no cough GI - no nausea/emesis Physical Exam Physical Exam: gen - NAD, pleasant, looks better today skin - pallor; previous cellulitis of LLE resolved; dressings intact L groin; wound vac in place right groin; extensive ecchymoses left medial thigh is si milar to past exams neck - no JVD heart - irregularly irregular, s1 s2, 2/6 systolic murmur lungs - CTA b/l abd - soft NT ND BS+ ext - pulses b/l feet 1-2+; warm; cap refill brisk both feet; no foot/ankle edema b/l musculo - right ankle - no pain with active flexion/extension of ankle; no tenderness to palpation of the right ankle or foot today Results & Data Results & Data ([facility]) Vital Signs (Past 12 Hours) Vital Signs Temp Pulse Pulse Pulse Resp BP Pulse Ox 05/23/22 20:01 36.8 C 78 18 99/61 L 93 05/23/22 16:00 36.6 C 77 18 111/73 97 05/23/22 16:25 84 05/23/22 15:00 84 05/23/22 11:53 36.8 C 92 H 20 100/63 95 O2 Del Method 05/23/22 20:01 Room Air 05/23/22 16:00 Room Air 05/23/22 16:25 05/23/22 15:00 05/23/22 11:53 Room Air Laboratory Results Laboratory Results - last 24 hr 05/22/22 05/22/22 05/23/22 20:09 23:27 06:58 WBC 6.52 RBC 2.75 L Hgb 8.0 L Hct 24.8 L MCV 90.2 MCH 29.1 MCHC 32.3 RDW Std Deviation 57.6 H RDW Coeff of Moriah 17.7 H Plt Count 454 H MPV 9.8 Immature Gran % (Auto) 0.5 Neut % (Auto) 62.6 Lymph % (Auto) 22.7 Linn % (Auto) 11.3 Eos % (Auto) 2.0 Baso % (Auto) 0.9 Neut # (Auto) 4.08 Lymph # (Auto) 1.48 Linn # (Auto) 0.74 Eos # (Auto) 0.13 Baso # (Auto) 0.06 Immature Gran # (Auto) 0.03 H APTT 68.9 H* PTT Ratio 2.5 Sodium Potassium Chloride Carbon Dioxide Anion Gap BUN Creatinine Est Cr Clr Drug Dosing Est GFR ( Amer) Est GFR (Non-Af Amer) BUN/Creatinine Ratio Glucose POC Glucose 124 H Calcium C-Reactive Protein 05/23/22 05/23/22 05/23/22 06:58 06:58 07:05 WBC RBC Hgb Hct MCV MCH MCHC RDW Std Deviation RDW Coeff of Moriah Plt Count MPV Immature Gran % (Auto) Neut % (Auto) Lymph % (Auto) [place]inn % (Auto) Eos % (Auto) Baso % (Auto) Neut # (Auto) Lymph # (Auto) Linn # (Auto) Eos # (Auto) Baso # (Auto) Immature Gran # (Auto) APTT 51.7 H* PTT Ratio 1.9 Sodium 134 L Potassium 4.3 Chloride 102 Carbon Dioxide 29 Anion Gap 3 BUN 15 Creatinine 0.67 Est Cr Clr Drug Dosing 128.1 Est GFR ( Amer) 110.5 Est GFR (Non-Af Amer) 95.3 BUN/Creatinine Ratio 22.4 H Glucose 115 H POC Glucose 127 H Calcium 8.3 L C-Reactive Protein 13.22 H 05/23/22 05/23/22 05/23/22 11:05 16:58 20:00 WBC RBC Hgb Hct MCV MCH MCHC RDW Std Deviation RDW Coeff of Moriah Plt Count MPV Immature Gran % (Auto) Neut % (Auto) Lymph % (Auto) Linn % (Auto) Eos % (Auto) Baso % (Auto) Neut # (Auto) Lymph # (Auto) Linn # (Auto) Eos # (Auto) Baso # (Auto) Immature Gran # (Auto) APTT PTT Ratio Sodium Potassium Chloride Carbon Dioxide Anion Gap BUN Creatinine Est Cr Clr Drug Dosing Est GFR ( Amer) Est GFR (Non-Af Amer) BUN/Creatinine Ratio Glucose POC Glucose 137 H 108 H 157 H Calcium C-Reactive Protein PG Care Time/CCT Total # of Minutes Spent Total Time Spent with Patient: Total time spent is greater than 50% in coordination of care (as documented) at patient's floor/unit and/or counseling patient: Coding Level of Care Code 23948 SUB INP/OBS CARE 3/50MIN Diagnoses Wound infection after surgery T81.49XA Right ankle pain M25.571 Hematoma T14.8XXA Cellulitis of lower extremity L03.119 Atrial fibrillation with rapid ventricular response I48.91 Acute blood loss anemia D62 Ischemic cardiomyopathy I25.5 UTI (urinary tract infection) due to urinary indwelling Jeff catheter T83.511A; N39.0 Acute occlusion of aortoiliac artery I74.09 LV (left ventricular) mural thrombus I51.3 CAD (coronary artery disease) I25.10 Depression F32.A Subarachnoid hemorrhage I60.9 Diabetes E11.9 Elevated LFTs R79.89 Geographic tongue K14.1 Candidiasis of mouth and esophagus B37.81; B37.0 Urinary retention R33.9 Chronic systolic CHF (congestive heart failure) I50.22 AICD (automatic cardioverter/defibrillator) present Z95.810 Restless leg syndrome G25.81
[2022-05-23] MEDS: TAMSULOSIN HCL 0.4 MG CAP PO SCH (20:17)
[2022-05-23] MEDS: GABAPENTIN 300 MG CAP PO SCH (20:17)
[2022-05-23] MEDS: MELATONIN 3 MG TAB PO SCH (20:17)
[2022-05-23] MEDS: ESCITALOPRAM OXALATE 10 MG TAB PO SCH (20:17)
[2022-05-23] MEDS: rOPINIRole HCL 0.25 MG TABLET PO SCH (20:17)
[2022-05-24] MEDS: HEPARIN SODIUM/DEXTROSE 25,000 UNITS/500 ML BAG IV SCH ×2 (00:24→17:19)
[2022-05-24] MEDS: ACETAMINOPHEN 500 MG TAB PO SCH ×3 (00:40→16:17)
[2022-05-24] MEDS: HYDROmorphone INJ 0.5 MG/0.5 ML SYR IV PRN ×5 (03:13→20:47)
[2022-05-24 07:53] LABS: Hematocrit (blood only) 28.5 % (40.1-51.0); Hemoglobin 9.1 g/dl (14.0-18.0); Mean Corpuscular Hgb Conc 31.9 g/dL (32.0-36.0); Mean Corpuscular Volume 90.8 fL (80.0-100.0); Mean Platelet Volume 10.2 fL (9.4-12.4); Platelet Count 509 K/uL (130-400); RDW Coefficient of Variation 17.6 % (11.5-14.5); RDW Standard Deviation 57.5 fL (36.4-46.3); Red Blood Count 3.14 M/uL (4.63-6.08); White Blood Count 7.22 K/ul (4.8-10.8)
[2022-05-24] MEDS: INSULIN ASPART PER UNIT SC SCH (08:00)
[2022-05-24 08:15] LABS: Partial Thromboplastin Ratio 1.6; Partial Thromboplastin Time 43.3 Seconds (21.0-31.0)
[2022-05-24 08:25] LABS: BUN Creatinine Ratio 21.9 (10-20); Calcium 8.7 mg/dl (8.5-10.1); Creatinine Clr Calc Pharmacy 115.8 ml/min; Est GFR (African American) 106.7 ml/min; Potassium 4.5 mmol/L (3.5-5.1)
[2022-05-24] MEDS: METOPROLOL SUCC 50MG EXT REL TAB PO SCH (08:57)
[2022-05-24] MEDS: NYSTATIN SUSP 500,000 U/5 ML UDC PO SCH ×4 (08:58→20:34)
[2022-05-24] MEDS: ADVANCED PROBIOTIC 1250 MG CAPSULE PO SCH (08:58)
[2022-05-24] MEDS: CEROVITE ADV FORMULA TAB PO SCH (08:58)
[2022-05-24] MEDS: FERROUS SULFATE 325 MG TAB PO SCH ×2 (08:59→16:18)
[2022-05-24] MEDS: ERTAPENEM SODIUM 1,000 MG in SYRINGE 0 ML IV SCH (09:00)
--- NOTE | 2022-05-24 15:15 | Hospitalist Progress Note ---
Date of Service May 24, 2022 Assessment & Plan (1) Wound infection after surgery: Plan: b/l groin -- 2nd ESBL klebsiella. blood cultures negative. remains on IV ertapenem 1gm IV daily. day #5 of such (previously on zosyn/daptomycin). original vascular surgery was on 05/02/[address] Sharp (intervention on b/l iliac artery thromboses). now POD 32 -- s/p I & D of right groin surgical site with drainage of hematoma and purulence along with debridement. woundvac now in place. woundvasc was exchanged 05/23/22. intra-op culture grew ESBL klebsiella. appreciate vascular surgery assistance. infectious disease consult completed - they advise once daily IV ertapenem while here, then change to PO levaquin 750mg daily at discharge. total 14 days of IV/PO therapy. (2) Right ankle pain: Plan: suspect this is neuropathic in origin based on the description of the pain no evidence of septic ankle no evidence of inflammatory arthropathy (gout, etc) x-rays of R foot/ankle wnl. femoral nerve irritation? increased gabapentin from 100mg TID to 300mg BID - pain has improved. cont to monitor. (3) Hematoma: Plan: b/l groin s/p I/D of R groin hematoma - POD #[address] L groin hematoma - Dr Sharp to leave alone at this point and no signs of ongoing infection L groin (4) Cellulitis of lower extremity: Plan: LLE - resolved. (5) Atrial fibrillation with rapid ventricular response: Plan: Cont digoxin. Recent dig level wnl. Cont metoprolol succinate. Currently on 100mg qam; will add 50mg qhs. Eliquis on hold. Cont heparin infusion in geeta of Eliquis for now. Will not resume Eliquis until we know for sure no further surgical procedures are needed. (6) Acute blood loss anemia: Plan: 2nd to bleeding from groin operative sites and hematoma formation. H/H stable today. repeat cbc in am. (7) Ischemic cardiomyopathy: Plan: With resulting chronic systolic CHF, EF 15%. Compensated. HOLD spironolactone for now. Cont AM metoprolol succinate 100mg; add back 50mg at HS. (8) UTI (urinary tract infection) due to urinary indwelling Jeff catheter: Plan: 2nd Klebsiella pneumoniae. Has received appropriate abx course while here for such. Jeff removed; voiding on own. (9) Acute occlusion of aortoiliac artery: Plan: Acute thrombus in aorta and bilateral iliac arteries secondary to LV thrombus with embolism. 05/02/22 - s/p Bilateral Iliac and Femoral Embolectomy, Left Common Femoral Artery Endarterectomy with Bovine Patch, Right Common Artery Patch Angioplasty - by Dr Sharp. Now with mild bleeding from his incisions/wounds, b/l hematomas, and with evidence of ESBL Klebsiella infection. Cont IV ertapenem. POD #3 s/p I & D of R groin hematoma, debridement of tissue, wound vac placement, etc. Eliquis on hold but heparin drip remains. Is on gabapentin BID for pain control as well as IV dilaudid prn. Tomorrow try shifting IV dilaudid to PO pain meds. (10) LV (left ventricular) mural thrombus: Plan: Discovered 05/02/22 on echo. Placed on Eliquis at that time. Now on hold as above. Cont heparin drip. (11) CAD (coronary artery disease): Plan: No evidence of any ACS. Continue metoprolol, statin. (12) Depression: Plan: I am very concerned that his lack of appetite, flat affect, poor sleep, etc are all connected - perhaps due to low-grade depression. Move lexapro 10mg to the AM. Start remeron 7.5mg HS. Discussed this with pt and his daughter today. (13) Subarachnoid hemorrhage: Plan: H/o SDH in 2020 Required b/l frontal craniotomies in the past. 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 care complexity - very high, numerous active problems including high risk meds (heparin drip, etc) Admission and Anticipated Discharge Date Admission Date: May 13, 2022 Subjective tele - a.fib, rates 90s to low 100s, sometimes >110 he was sitting at side of bed during the visit his daughter was present today he kept his head down nearly the entire visit with flat affect he admitted that his appetite remains very, very poor his groin pain is controlled this afternoon his b/l foot pain is controlled this afternoon he denies any dyspnea just very weak during the visit his right arm IV infiltrated and it was removed Review of Systems Review of Systems: gen - no fevers psych - sleeping poorly at night-time, some depressive feelings cv - no orthopnea, no chest pain pulm - no dyspnea at rest or cough GI - no diarrhea Physical Exam Physical Exam: gen - NAD, looks despondent skin - pallor; dressings removed L groin - felicia intact, underlying hematoma but no redness or heat; wound vac in place right groin; extensive ecchymoses left medial thigh is improving neck - no JVD heart - irregularly irregular, s1 s2, 2/6 systolic murmur lungs - CTA b/l abd - soft NT ND BS+ ext - pulses b/l feet 1-2+; warm; cap refill brisk both feet; no foot/ankle edema b/l psych - flat affect Results & Data Results & Data ([facility]) Vital Signs (Past 12 Hours) Vital Signs Temp Pulse Pulse Pulse Resp BP Pulse Ox 05/24/22 11:42 36.9 C 114 H 16 93/61 L 92 05/24/22 08:00 05/24/22 07:00 109 H 05/24/22 08:33 36.7 C 107 H 18 110/63 98 05/24/22 04:45 36.5 C 75 18 113/73 97 O2 Del Method 05/24/22 11:42 Room Air 05/24/22 08:00 Room Air 05/24/22 07:00 05/24/22 08:33 Room Air 05/24/22 04:45 Room Air Laboratory Results Laboratory Results - last 24 hr 05/23/22 05/23/22 05/24/22 16:58 20:00 07:17 WBC RBC Hgb Hct MCV MCH MCHC RDW Std Deviation RDW Coeff of Moriah Plt Count MPV APTT 43.3 H PTT Ratio 1.6 Sodium Potassium Chloride Carbon Dioxide Anion Gap BUN Creatinine Est Cr Clr Drug Dosing Est GFR ( Amer) Est GFR (Non-Af Amer) BUN/Creatinine Ratio Glucose POC Glucose 108 H 157 H Calcium 05/24/22 05/24/22 05/24/22 07:17 07:17 07:53 WBC 7.22 RBC 3.14 L Hgb 9.1 L Hct 28.5 L MCV 90.8 MCH 29.0 MCHC 31.9 L RDW Std Deviation 57.5 H RDW Coeff of Moriah 17.6 H Plt Count 509 H MPV 10.2 APTT PTT Ratio Sodium 134 L Potassium 4.5 Chloride 101 Carbon Dioxide 26 Anion Gap 7 BUN 16 Creatinine 0.73 Est Cr Clr Drug Dosing 115.8 Est GFR ( Amer) 106.7 Est GFR (Non-Af Amer) 92.0 BUN/Creatinine Ratio 21.9 H Glucose 106 H POC Glucose 124 H Calcium 8.7 05/24/22 11:19 WBC RBC Hgb Hct MCV MCH MCHC RDW Std Deviation RDW Coeff of Moriah Plt Count MPV APTT PTT Ratio Sodium Potassium Chloride Carbon Dioxide Anion Gap BUN Creatinine Est Cr Clr Drug Dosing Est GFR ( Amer) Est GFR (Non-Af Amer) BUN/Creatinine Ratio Glucose POC Glucose 140 H Calcium PG Care Time/CCT Total # of Minutes Spent Total Time Spent with Patient: Total time spent is greater than 50% in coordination of care (as documented) at patient's floor/unit and/or counseling patient: Coding Level of Care Code 45212 SUB INP/OBS CARE 3/50MIN Diagnoses Wound infection after surgery T81.49XA Right ankle pain M25.571 Hematoma T14.8XXA Cellulitis of lower extremity L03.119 Atrial fibrillation with rapid ventricular response I48.91 Acute blood loss anemia D62 Ischemic cardiomyopathy I25.5 UTI (urinary tract infection) due to urinary indwelling Jeff catheter T83.511A; N39.0 Acute occlusion of aortoiliac artery I74.09 LV (left ventricular) mural thrombus I51.3 CAD (coronary artery disease) I25.10 Depression F32.A Subarachnoid hemorrhage I60.9 Diabetes E11.9 Elevated LFTs R79.89 Geographic tongue K14.1 Candidiasis of mouth and esophagus B37.81; B37.0 Urinary retention R33.9 Chronic systolic CHF (congestive heart failure) I50.22 AICD (automatic cardioverter/defibrillator) present Z95.810 Restless leg syndrome G25.81
[2022-05-24 16:13] LABS: Partial Thromboplastin Ratio 1.3; Partial Thromboplastin Time 36.3 Seconds (21.0-31.0)
[2022-05-24] MEDS: ATORVASTATIN 40 MG TAB PO SCH (16:17)
[2022-05-24] MEDS: DIGOXIN 0.125 MG TAB PO SCH (16:18)
[2022-05-24] MEDS ORDERED: HEPARIN SOD (PORCINE) 1000 UNIT/ML IV ONE (17:00)
[2022-05-24] MEDS: rOPINIRole HCL 0.25 MG TABLET PO SCH (18:32)
[2022-05-24] MEDS: TAMSULOSIN HCL 0.4 MG CAP PO SCH (20:43)
[2022-05-24] MEDS: METOPROLOL SUCC 25MG EXT REL TAB PO SCH (20:43)
[2022-05-24] MEDS: MELATONIN 3 MG TAB PO SCH (20:44)
[2022-05-24] MEDS: MIRTAZAPINE SOLTAB 15 MG PO SCH (20:44)
[2022-05-24] MEDS: GABAPENTIN 300 MG CAP PO SCH (20:45)
[2022-05-24 23:09] LABS: Hematocrit (blood only) 26.8 % (40.1-51.0); Hemoglobin 8.7 g/dl (14.0-18.0); Mean Corpuscular Hemoglobin 29.3 pg (25.0-34.0); Mean Corpuscular Hgb Conc 32.5 g/dL (32.0-36.0); Mean Corpuscular Volume 90.2 fL (80.0-100.0); Mean Platelet Volume 9.5 fL (9.4-12.4); Platelet Count 521 K/uL (130-400); RDW Coefficient of Variation 17.4 % (11.5-14.5); RDW Standard Deviation 56.9 fL (36.4-46.3); Red Blood Count 2.97 M/uL (4.63-6.08); White Blood Count 6.61 K/ul (4.8-10.8)
[2022-05-24 23:36] LABS: Partial Thromboplastin Ratio 2.7
[2022-05-24 23:37] LABS: BUN Creatinine Ratio 20.3 (10-20); Calcium 8.9 mg/dl (8.5-10.1); Est GFR (African American) 103.2 ml/min; Est GFR (Non-African American) 89.1 ml/min; Potassium 4.5 mmol/L (3.5-5.1)
[2022-05-24 23:44] LABS: Partial Thromboplastin Time 73.2 Seconds (21.0-31.0)
[2022-05-25] MEDS: ACETAMINOPHEN 500 MG TAB PO SCH ×2 (00:46→09:00)
[2022-05-25 07:45] LABS: Partial Thromboplastin Ratio 1.7
[2022-05-25 07:47] LABS: Partial Thromboplastin Time 46.5 Seconds (21.0-31.0)
[2022-05-25] MEDS ORDERED: HYDROmorphone INJ 0.5 MG/0.5 ML SYR IV PRN (07:54)
[2022-05-25] MEDS: CEROVITE ADV FORMULA TAB PO SCH ×2 (08:06→09:42)
[2022-05-25] MEDS: ADVANCED PROBIOTIC 1250 MG CAPSULE PO SCH ×2 (08:06→09:42)
[2022-05-25] MEDS: METOPROLOL SUCC 50MG EXT REL TAB PO SCH ×3 (08:07→15:05)
[2022-05-25] MEDS: NYSTATIN SUSP 500,000 U/5 ML UDC PO SCH ×5 (08:08→20:37)
[2022-05-25] MEDS: ESCITALOPRAM OXALATE 10 MG TAB PO SCH ×3 (08:09→15:06)
[2022-05-25] MEDS: FERROUS SULFATE 325 MG TAB PO SCH ×3 (08:09→16:58)
[2022-05-25] MEDS: ACETAMINOPHEN 325 MG TAB PO SCH ×2 (08:14→16:59)
[2022-05-25] MEDS: HEPARIN SODIUM/DEXTROSE 25,000 UNITS/500 ML BAG IV SCH ×2 (08:15→21:44)
[2022-05-25] MEDS: ERTAPENEM SODIUM 1,000 MG in SYRINGE 0 ML IV SCH (11:15)
[2022-05-25] MEDS: HYDROCODONE/ACETAMINOPHEN 7.5/325MG TAB PO PRN ×2 (11:23→18:08)
[2022-05-25] MEDS: DIGOXIN 0.125 MG TAB PO SCH (15:05)
[2022-05-25] MEDS: ATORVASTATIN 40 MG TAB PO SCH (15:05)
[2022-05-25] MEDS ORDERED: QUEtiapine FUMARATE 25 MG TABLET PO PRN (19:05)
--- NOTE | 2022-05-25 19:08 | Hospitalist Progress Note ---
Date of Service May 25, 2022 Assessment & Plan (1) Acute encephalopathy: Plan: 2nd to remeron? 2nd to pain meds? 2nd to hospital psychosis? 2nd to additional brewing infection? other? hold remeron - this is the only new med in the last 48 hours. melatonin 3mg HS. avoid sedatives. (2) Wound infection after surgery: Plan: b/l groin -- 2nd ESBL klebsiella. blood cultures negative. remains on IV ertapenem 1gm IV daily. day #6 of such (previously on zosyn/daptomycin). original vascular surgery was on 05/02/[address] Sharp (intervention on b/l iliac artery thromboses). now POD #4 -- s/p I & D of right groin surgical site with drainage of hematoma and purulence along with debridement. woundvac now in place. woundvasc was exchanged 05/23/22. intra-op culture grew ESBL klebsiella. appreciate vascular surgery assistance. infectious disease consult completed - they advise once daily IV ertapenem while here, then change to PO levaquin 750mg daily at discharge. total 14 days of IV/PO therapy. Dr Sharp's team to look at wounds again tomorrow. (3) Right ankle pain: Plan: suspect this is neuropathic in origin based on the description of the pain no evidence of septic ankle no evidence of inflammatory arthropathy (gout, etc) x-rays of R foot/ankle wnl. femoral nerve irritation? increased gabapentin to 300mg HS. cont to monitor. (4) Hematoma: Plan: b/l groin s/p I/D of R groin hematoma - POD #[address] L groin hematoma - Dr Sharp to leave alone at this point and no signs of ongoing infection L groin (5) Cellulitis of lower extremity: Plan: LLE - resolved. (6) Atrial fibrillation with rapid ventricular response: Plan: Cont digoxin. Recent dig level wnl. Cont metoprolol succinate. Currently on 100mg qam; 25mg qhs. Eliquis on hold. Cont heparin infusion in [place] of Eliquis for now. Will not resume Eliquis until we know for sure no further surgical procedures are needed. (7) Acute blood loss anemia: Plan: 2nd to bleeding from groin operative sites and hematoma formation. H/H stable. (8) Ischemic cardiomyopathy: Plan: With resulting chronic systolic CHF, EF 15%. Compensated. HOLD spironolactone for now. Cont AM metoprolol succinate 100mg. Cont PM metoprolol succinate 25mg. (9) UTI (urinary tract infection) due to urinary indwelling Jeff catheter: Plan: 2nd Klebsiella pneumoniae. Has received appropriate abx course while here for such. Jeff removed; voiding on own. 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 05/02/22 - s/p Bilateral Iliac and Femoral Embolectomy, Left Common Femoral Artery Endarterectomy with Bovine Patch, Right Common Artery Patch Angioplasty - by Dr Sharp. Now with mild bleeding from his incisions/wounds, b/l hematomas, and with evidence of ESBL Klebsiella infection. Cont IV ertapenem. POD #4 s/p I & D of R groin hematoma, debridement of tissue, wound vac placement, etc. Eliquis on hold but heparin drip remains. Stop dilaudid. Try norco in [place]. (11) LV (left ventricular) mural thrombus: Plan: Discovered 05/02/22 on echo. Placed on Eliquis at that time. Now on hold as above. Cont heparin drip. (12) CAD (coronary artery disease): Plan: No evidence of any ACS. Continue metoprolol, statin. (13) Depression: Plan: I am very concerned that his lack of appetite, flat affect, poor sleep, etc are all connected - perhaps due to low-grade depression. Moved lexapro 10mg to the AM. Started remeron 7.5mg HS -- but did this cause confusion ?? I have not seen remeron cause confusion (often just sedation) -- but will hold tonight out of abundance of caution. (14) Subarachnoid hemorrhage: Plan: H/o SDH in 2020 Required b/l frontal craniotomies in the past. 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 Admission and Anticipated Discharge Date Admission Date: May 13, 2022 Subjective patient slept well overnight this am, however, he refused his medications and seemed confused per staff during my visit he was restless he wanted to sit up at the side of the bed I asked him why he had refused his meds - he started talking about "cooking at home" and that he "cooks what he wants" he then said "I like to be in control" he was agreeable to taking his meds (it was now early afternoon) he was confused during my visit stating "where is my radio?" (staff confirm he doesn't have a radio in his room) staff report he pulled off his condom cath, pulling at IVs, taking clothes off, etc ate good breakfast but then didn't eat lunch Review of Systems Review of Systems: cv - no cp, no orthopnea pulm - no cough or dyspnea GI - no pain, nausea or emesis musculo - groin pain, foot pain -- improved Physical Exam Physical Exam: gen - NAD, looks despondent like previous visits; confused skin - pallor; wound vac in place right groin; extensive ecchymoses left medial thigh cont to improve neck - no JVD heart - irregularly irregular, s1 s2, 2/6 systolic murmur, tachycardic lungs - CTA b/l abd - soft NT ND BS+ ext - pulses b/l feet 1-2+; warm; cap refill brisk both feet; no foot/ankle edema b/l psych - flat affect, confused Results & Data Results & Data ([facility]) Vital Signs (Past 12 Hours) Vital Signs Temp Pulse Pulse Pulse Resp BP Pulse Ox 05/25/22 15:00 111 H 05/25/22 15:20 36.8 C 76 18 137/74 100 05/25/22 15:05 105 H 05/25/22 11:20 37.5 C 123 H 16 120/81 96 05/25/22 07:47 37.0 C 85 16 110/71 94 O2 Del Method 05/25/22 15:00 05/25/22 15:20 Room Air 05/25/22 15:05 05/25/22 11:20 Room Air 05/25/22 07:47 Room Air Laboratory Results Laboratory Results - last 24 hr 05/24/22 05/24/22 05/24/22 20:40 22:59 22:59 WBC 6.61 RBC 2.97 L Hgb 8.7 L Hct 26.8 L MCV 90.2 MCH 29.3 MCHC 32.5 RDW Std Deviation 56.9 H RDW Coeff of Moriah 17.4 H Plt Count 521 H MPV 9.5 APTT 73.2 H* PTT Ratio 2.7 Sodium Potassium Chloride Carbon Dioxide Anion Gap BUN Creatinine Est Cr Clr Drug Dosing Est GFR ( Amer) Est GFR (Non-Af Amer) BUN/Creatinine Ratio Glucose POC Glucose 124 H Calcium Vitamin B12 05/24/22 05/24/22 05/25/22 22:59 22:59 06:38 WBC RBC Hgb Hct MCV MCH MCHC RDW Std Deviation RDW Coeff of Moriah Plt Count MPV APTT 46.5 H* PTT Ratio 1.7 Sodium 135 L Potassium 4.5 Chloride 100 Carbon Dioxide 28 Anion Gap 7 BUN 16 Creatinine 0.79 Est Cr Clr Drug Dosing 107.0 Est GFR ( Amer) 103.2 Est GFR (Non-Af Amer) 89.1 BUN/Creatinine Ratio 20.3 H Glucose 112 H POC Glucose Calcium 8.9 Vitamin B12 1441 H PG Care Time/CCT Total # of Minutes Spent Total Time Spent with Patient: Total time spent is greater than 50% in coordination of care (as documented) at patient's floor/unit and/or counseling patient: Coding Level of Care Code 75075 SUB INP/OBS CARE 3/50MIN Diagnoses Acute encephalopathy G93.40 Wound infection after surgery T81.49XA Right ankle pain M25.571 Hematoma T14.8XXA Cellulitis of lower extremity L03.119 Atrial fibrillation with rapid ventricular response I48.91 Acute blood loss anemia D62 Ischemic cardiomyopathy I25.5 UTI (urinary tract infection) due to urinary indwelling Jeff catheter T83.511A; N39.0 Acute occlusion of aortoiliac artery I74.09 LV (left ventricular) mural thrombus I51.3 CAD (coronary artery disease) I25.10 Depression F32.A Subarachnoid hemorrhage I60.9 Diabetes E11.9 Elevated LFTs R79.89 Geographic tongue K14.1 Candidiasis of mouth and esophagus B37.81; B37.0 Urinary retention R33.9 Chronic systolic CHF (congestive heart failure) I50.22 AICD (automatic cardioverter/defibrillator) present Z95.810 Restless leg syndrome G25.81
[2022-05-25] MEDS: METOPROLOL SUCC 25MG EXT REL TAB PO SCH (21:05)
[2022-05-25] MEDS: MELATONIN 3 MG TAB PO SCH (21:06)
[2022-05-25] MEDS: GABAPENTIN 300 MG CAP PO SCH (21:06)
[2022-05-25] MEDS: rOPINIRole HCL 0.25 MG TABLET PO SCH (21:06)
[2022-05-26] MEDS: HEPARIN SODIUM/DEXTROSE 25,000 UNITS/500 ML BAG IV SCH ×2 (00:20→15:22)
[2022-05-26] MEDS: TAMSULOSIN HCL 0.4 MG CAP PO SCH ×2 (03:30→20:09)
[2022-05-26] MEDS: ACETAMINOPHEN 325 MG TAB PO SCH ×3 (03:31→17:20)
[2022-05-26] MEDS: HYDROCODONE/ACETAMINOPHEN 7.5/325MG TAB PO PRN ×2 (06:07→15:44)
[2022-05-26 06:13] LABS: Hematocrit (blood only) 26.9 % (40.1-51.0); Hemoglobin 8.6 g/dl (14.0-18.0); Mean Corpuscular Hemoglobin 29.1 pg (25.0-34.0); Mean Corpuscular Volume 90.9 fL (80.0-100.0); Mean Platelet Volume 9.6 fL (9.4-12.4); Platelet Count 514 K/uL (130-400); RDW Coefficient of Variation 17.4 % (11.5-14.5); RDW Standard Deviation 56.8 fL (36.4-46.3); Red Blood Count 2.96 M/uL (4.63-6.08); White Blood Count 6.18 K/ul (4.8-10.8)
[2022-05-26 06:41] LABS: Partial Thromboplastin Ratio 2.3
[2022-05-26 06:44] LABS: BUN Creatinine Ratio 17.1 (10-20); Calcium 8.9 mg/dl (8.5-10.1); Creatinine Clr Calc Pharmacy 93.3 ml/min; Est GFR (African American) 101.7 ml/min; Est GFR (Non-African American) 87.7 ml/min; Potassium 4.3 mmol/L (3.5-5.1)
[2022-05-26 06:46] LABS: Partial Thromboplastin Time 63.6 Seconds (21.0-31.0)
[2022-05-26] MEDS ORDERED: HYDROmorphone INJ 0.5 MG/0.5 ML SYR IV STA (08:53)
--- NOTE | 2022-05-26 09:52 | Surgery Progress Note ---
Date of Service May 26, 2022 Assessment & Plan (1) Infected wound: Plan: R groin wound vac changed today. Good granulation and minimal bleeding noted. R femoral artery/patch barely visible; good coverage. Pt tolerated well with 0.25 dilaudid. L groin remains intact with mild serous drainage and old hematoma. Continue abx. Will reeval on Thu. Admission and Anticipated Discharge Date Admission Date: May 13, 2022 Subjective 71 yo m POD #5 after I&D of R groin wound infection, seen in f/u today. Pt admits some mild pain in R ankle, but not bad. Denies any significant groin pain presently. Review of Systems Review of Systems: All systems reviewed & are unremarkable except as noted in HPI & below Physical Exam Constitutional: WD/WN, vitals as above Cardiovascular: Vessels: posterior tibial pulses present (doppler) and dorsalis pedis pulses present (doppler); + abnormal peripheral pulses Extremities: normal capillary refill Skin: + wound (R groin deep wound with vac, good granulation, minimal bleeding. ) and + incision (L groin intact with felicia, +hematoma, mild serous drainage from distal); no erythema Good tissue coverage over the artery Results & Data ([facility]) Vital Signs (Past 12 Hours) Vital Signs Temp Pulse Pulse Resp BP Pulse Ox O2 Del Method 05/26/22 07:36 Room Air 05/26/22 07:32 36.7 C 81 18 119/77 95 Room Air 05/26/22 03:33 36.5 C 83 18 123/78 92 Room Air 05/25/22 22:57 36.6 C 74 20 100/62 99 Room Air
[2022-05-26] MEDS: METOPROLOL SUCC 50MG EXT REL TAB PO SCH (11:22)
[2022-05-26] MEDS: ADVANCED PROBIOTIC 1250 MG CAPSULE PO SCH (11:23)
[2022-05-26] MEDS: FERROUS SULFATE 325 MG TAB PO SCH ×2 (11:23→17:20)
[2022-05-26] MEDS: CEROVITE ADV FORMULA TAB PO SCH (11:23)
[2022-05-26] MEDS: ESCITALOPRAM OXALATE 10 MG TAB PO SCH (12:50)
[2022-05-26] MEDS: ERTAPENEM SODIUM 1,000 MG in SYRINGE 0 ML IV SCH (12:51)
[2022-05-26] MEDS: NYSTATIN SUSP 500,000 U/5 ML UDC PO SCH ×4 (12:51→20:09)
[2022-05-26] MEDS: ATORVASTATIN 40 MG TAB PO SCH (15:26)
[2022-05-26] MEDS: DIGOXIN 0.125 MG TAB PO SCH (15:27)
[2022-05-26] MEDS: METOPROLOL SUCC 25MG EXT REL TAB PO SCH (20:10)
[2022-05-26] MEDS: rOPINIRole HCL 0.25 MG TABLET PO SCH (20:10)
[2022-05-26] MEDS: GABAPENTIN 300 MG CAP PO SCH (20:10)
[2022-05-26] MEDS: MIRTAZAPINE SOLTAB 15 MG PO SCH (20:10)
--- NOTE | 2022-05-26 20:33 | Hospitalist Progress Note ---
Date of Service May 26, 2022 Assessment & Plan (1) Acute encephalopathy: Plan: improved today 2nd to remeron? 2nd to pain meds? 2nd to hospital psychosis? regardless of etiology the confusion is better resume remeron 7.5mg HS cont melatonin 3mg HS avoid sedatives limit narcotics (2) Wound infection after surgery: Plan: b/l groin -- 2nd ESBL klebsiella. blood cultures negative. remains on IV ertapenem 1gm IV daily. day #7 of such (previously on zosyn/daptomycin). original vascular surgery was on 05/02/[address] Sharp (intervention on b/l iliac artery thromboses). now POD #5 -- s/p I & D of right groin surgical site with drainage of hematoma and purulence along with debridement. woundvac now in place. woundvasc was exchanged again today. intra-op culture grew ESBL klebsiella. appreciate vascular surgery assistance. infectious disease consult completed - they advise once daily IV ertapenem while here, then change to PO levaquin 750mg daily at discharge. total 14 days of IV/PO therapy. Dr Sharp's team to look at wounds again on 05/28/22. (3) Right ankle pain: Plan: suspect this is neuropathic in origin based on the description of the pain no evidence of septic ankle no evidence of inflammatory arthropathy (gout, etc) x-rays of R foot/ankle wnl. femoral nerve irritation? increased gabapentin to 300mg HS a few nights ago. likely ready to increase to 300mg BID tomorrow. cont to monitor. limit narcotics if possible. (4) Hematoma: Plan: b/l groin s/p I/D of R groin hematoma - POD #[address] L groin hematoma - per Dr Sharp no intervention needed (5) Cellulitis of lower extremity: Plan: LLE - resolved. (6) Atrial fibrillation with rapid ventricular response: Plan: Cont digoxin. Recent dig level wnl. Cont metoprolol succinate. Currently on 100mg qam; 25mg qhs. Eliquis on hold. Cont heparin infusion in [place] of Eliquis for now. Will not resume Eliquis until closer to discharge and after we are confident no further surgical intervention needed. (7) Acute blood loss anemia: Plan: 2nd to bleeding from groin operative sites and hematoma formation. H/H stable. Consider IV venofer. (8) Ischemic cardiomyopathy: Plan: With resulting chronic systolic CHF, EF 15%. Compensated. HOLD spironolactone for now - oral intake has been very, very poor, and O2 sats 100% in RA. Cont AM metoprolol succinate 100mg. Cont PM metoprolol succinate 25mg. (9) UTI (urinary tract infection) due to urinary indwelling Jeff catheter: Plan: 2nd Klebsiella pneumoniae. Has received appropriate abx course while here for such. Jeff removed; voiding on own. 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 05/02/22 - s/p Bilateral Iliac and Femoral Embolectomy, Left Common Femoral Artery Endarterectomy with Bovine Patch, Right Common Artery Patch Angioplasty - by Dr Sharp. Now with mild bleeding from his incisions/wounds, b/l hematomas, and with evidence of ESBL Klebsiella infection. Cont IV ertapenem. POD #5 s/p I & D of R groin hematoma, debridement of tissue, wound vac placement, etc. Eliquis on hold but heparin drip remains. Stopped dilaudid. norco prn in [place]. (11) LV (left ventricular) mural thrombus: Plan: Discovered 05/02/22 on echo. Placed on Eliquis at that time. Now on hold as above. Cont heparin drip. (12) CAD (coronary artery disease): Plan: No evidence of any ACS. Continue metoprolol, statin. (13) Depression: Plan: I am very concerned that his lack of appetite, flat affect, poor sleep, etc are all connected -- due to depression. Moved lexapro 10mg to the AM. Started remeron 7.5mg HS -- but did this cause confusion ?? I have not seen remeron cause confusion (often just sedation). Suspect it was NOT the remeron thus resume 7.5mg at HS tonight. (14) Subarachnoid hemorrhage: Plan: H/o SDH in 2020 Required b/l frontal craniotomies in the past. 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 Admission and Anticipated Discharge Date Admission Date: May 13, 2022 Subjective patient had woundvac from R groin exchanged today by vascular they are satisfied with appearance of wound pt denies groin pain continues with mild right foot pain but "not bad" relative to prior visits continues with poor appetite his son was at bedside - and occasionally Mr Cabrera and his son would speak together in [place] at one point the patient started talking about the suspected confusion and events of the weekend and stated "I like to make my own decisions" (I believe he was alluding to refusing his medications at times??) son did agree his father was confused this weekend we all agreed that the lengthiness of the hospital stay has worn negatively on Mr Cabrera and he is sick of being in the hospital tele overnight - a.fib, rates about 90-100 Review of Systems Review of Systems: gen - fatigue, poor appetite; no fevers cv - no chest pain, no orthopnea, no edema pulm - no cough or dyspnea GI - no abd pain/nausea/emesis - some incontinence at times; using condom cath occasionally Physical Exam Physical Exam: gen - NAD, looks depressed skin - pallor; wound vac in place right groin; extensive ecchymoses left medial thigh cont to improve/resolve neck - no JVD heart - irregularly irregular, s1 s2, 2/6 systolic murmur lungs - CTA b/l abd - soft NT ND BS+ ext - pulses b/l feet 2+; warm; cap refill brisk both feet; no foot/ankle edema b/l psych - flat affect skin - demarkation lines left leg present; no cellulitis in this region; no erythema in either groin; felicia intact L groin wound; no drainage L groin Results & Data Results & Data ([facility]) Vital Signs (Past 12 Hours) Vital Signs Temp Pulse Pulse Pulse Resp BP Pulse Ox 05/26/22 19:27 36.7 C 86 18 118/71 98 05/26/22 15:00 101 H 05/26/22 15:27 93 H 05/26/22 11:25 36.5 C 95 H 18 117/73 98 O2 Del Method 05/26/22 19:27 Room Air 05/26/22 15:00 05/26/22 15:27 05/26/22 11:25 Room Air Laboratory Results Laboratory Results - last 24 hr 05/26/22 05/26/22 05/26/22 06:02 06:02 06:02 WBC 6.18 RBC 2.96 L Hgb 8.6 L Hct 26.9 L MCV 90.9 MCH 29.1 MCHC 32.0 RDW Std Deviation 56.8 H RDW Coeff of Moriah 17.4 H Plt Count 514 H MPV 9.6 APTT 63.6 H* PTT Ratio 2.3 Sodium 137 Potassium 4.3 Chloride 101 Carbon Dioxide 30 Anion Gap 6 BUN 14 Creatinine 0.82 Est Cr Clr Drug Dosing 93.3 Est GFR ( Amer) 101.7 Est GFR (Non-Af Amer) 87.7 BUN/Creatinine Ratio 17.1 Glucose 105 H Calcium 8.9 Ammonia 05/26/22 06:02 WBC RBC Hgb Hct MCV MCH MCHC RDW Std Deviation RDW Coeff of Moriah Plt Count MPV APTT PTT Ratio Sodium Potassium Chloride Carbon Dioxide Anion Gap BUN Creatinine Est Cr Clr Drug Dosing Est GFR ( Amer) Est GFR (Non-Af Amer) BUN/Creatinine Ratio Glucose Calcium Ammonia 33.0 PG Care Time/CCT Total # of Minutes Spent Total Time Spent with Patient: Total time spent is greater than 50% in coordination of care (as documented) at patient's floor/unit and/or counseling patient: Coding Level of Care Code 46277 SUB INP/OBS CARE 2/35MIN Diagnoses Acute encephalopathy G93.40 Wound infection after surgery T81.49XA Right ankle pain M25.571 Hematoma T14.8XXA Cellulitis of lower extremity L03.119 Atrial fibrillation with rapid ventricular response I48.91 Acute blood loss anemia D62 Ischemic cardiomyopathy I25.5 UTI (urinary tract infection) due to urinary indwelling Jeff catheter T83.511A; N39.0 Acute occlusion of aortoiliac artery I74.09 LV (left ventricular) mural thrombus I51.3 CAD (coronary artery disease) I25.10 Depression F32.A Subarachnoid hemorrhage I60.9 Diabetes E11.9 Elevated LFTs R79.89 Geographic tongue K14.1 Candidiasis of mouth and esophagus B37.81; B37.0 Urinary retention R33.9 Chronic systolic CHF (congestive heart failure) I50.22 AICD (automatic cardioverter/defibrillator) present Z95.810 Restless leg syndrome G25.81
[2022-05-27] MEDS: MELATONIN 3 MG TAB PO SCH ×2 (00:22→20:31)
[2022-05-27 04:45] LABS: Partial Thromboplastin Ratio 2.3
[2022-05-27 04:47] LABS: Partial Thromboplastin Time 62.8 Seconds (21.0-31.0)
[2022-05-27] MEDS: ACETAMINOPHEN 325 MG TAB PO SCH ×3 (04:51→16:36)
[2022-05-27] MEDS: HEPARIN SODIUM/DEXTROSE 25,000 UNITS/500 ML BAG IV SCH (05:57)
[2022-05-27 07:21] LABS: Hematocrit (blood only) 28.9 % (40.1-51.0); Hemoglobin 9.3 g/dl (14.0-18.0); Mean Corpuscular Hemoglobin 29.1 pg (25.0-34.0); Mean Corpuscular Hgb Conc 32.2 g/dL (32.0-36.0); Mean Corpuscular Volume 90.3 fL (80.0-100.0); Mean Platelet Volume 9.8 fL (9.4-12.4); Nucleated RBC # (auto) 0.02 K/uL (0-0); Nucleated RBC % (auto) 0.3 %; Platelet Count 481 K/uL (130-400); RDW Coefficient of Variation 17.5 % (11.5-14.5); RDW Standard Deviation 57.1 fL (36.4-46.3); White Blood Count 6.62 K/ul (4.8-10.8)
[2022-05-27 07:47] LABS: BUN Creatinine Ratio 19.7 (10-20); Calcium 8.9 mg/dl (8.5-10.1); Creatinine Clr Calc Pharmacy 100.6 ml/min; Est GFR (African American) 104.9 ml/min; Est GFR (Non-African American) 90.5 ml/min; Potassium 4.3 mmol/L (3.5-5.1)
[2022-05-27] MEDS: METOPROLOL SUCC 50MG EXT REL TAB PO SCH (09:15)
[2022-05-27] MEDS: CEROVITE ADV FORMULA TAB PO SCH (09:15)
[2022-05-27] MEDS: FERROUS SULFATE 325 MG TAB PO SCH ×2 (09:17→16:36)
[2022-05-27] MEDS: ADVANCED PROBIOTIC 1250 MG CAPSULE PO SCH (09:17)
[2022-05-27] MEDS: NYSTATIN SUSP 500,000 U/5 ML UDC PO SCH ×4 (09:17→20:30)
[2022-05-27] MEDS: ESCITALOPRAM OXALATE 10 MG TAB PO SCH (09:17)
[2022-05-27] MEDS: HYDROCODONE/ACETAMINOPHEN 7.5/325MG TAB PO PRN ×2 (12:57→22:16)
--- NOTE | 2022-05-27 14:05 | Operative Report ---
Post Operative Report Pre & Post Diagnosis Pre & Post Diagnosis Operation Date: 05/02/22 11:00 Pre-Op Diagnosis: Arterial thrombosis left iliac artery Post-Op Diagnosis: Arterial thrombosis left iliac artery I identified the patient and participated in the time-out.: Yes Procedure Operation Date: 05/02/22 11:00 Actual Procedures p Bilateral Iliac and Femoral Embolectomy, Left Common Femoral Artery Endarterectomy with Bovine Patch, Right Common Artery Patch Angioplasty(Left) - Aaron Sharp MD Surgeon Aaron Sharp MD Seat Pack Inspector Sabiha Larios PA-C Estimated Blood Loss 100 Findings Consistent with Post-Op Diagnosis Specimens thrombus Anesthesia Type General Complications none Disposition Accompanied Patient To Recovery: No Disposition: Recovery Room Indications This is a 71yo male with acute onset of left lower extremity pain. He also has a. fib with rvr. Surgery was canceled the day before due to heart rate over 200 once intubated. He is better controlled today. Embolectomy was recommended. I have discussed the risks options and benefits of the procedure with the patient. The patient understands the risks options and benefits and agrees to the procedure. Description of Procedure The patient was taken to the operating room and placed in the supine position. Both groins were prepped and draped in the usual fashion. A timeout was performed and the patient was identified. A longitudinal incision was made in both groins exposing the common femoral artery. The left side was neavily aldo cified and appeared occluded due to plaque. The right femoral artery was calcified but less than the left. Neither side had pulses. A longitudinal arteriotomy was done. The left femoral artery was occluded with plaque. A #5 esequiel catheter was passed upward and a large amount of thrombus removed from the left iliac artery. Good inflow was noted. An endarterectomy was then done on the common femoral artery without difficulty and the artery closed with a bovine patch. The right common femoral artery had plaque but no narrowing seen. The esequiel was then passed up the right iliac removing a large amount of thrombus from it. Good in flow was noted. Both sides had superficial femoral artery occlusions being the a #4 esequiel catheter was passed to the mid thigh only. The right femoral was then closed with a bovine patch. Good femoral pulses were seen on both sides. Good flow was seen in both profunda femoral arteries. Adequate hemostasis was achieved and the groins closed with a 2-0 Vicryl suture for the femoral sheath and a 3-0 Vicryl for the subcutaneous layer. Skin edges were approximated wit the stapling device and the wound dressed with prevena dressings. The patient left the operation room in satisfactory condition and tolerated the procedure well. All needle and sponge counts were correct at the end of the procedure. Sabiha Larios Pac assisted due to lack of resident availability and was necessary for positioning, draping, retraction, wound closure deep layers, subcutaneous tissue, and skin closure and was necessary for assisting with the case. I attest to the content of the Intraoperative Record and any orders documented therein. Any exceptions are noted below.
--- NOTE | 2022-05-27 14:07 | Hospitalist Progress Note ---
Date of Service May 27, 2022 Assessment & Plan (1) Acute encephalopathy: Plan: Much improved 2nd to remeron? 2nd to pain meds? 2nd to hospital psychosis? continue remeron 7.5mg HS cont melatonin 3mg HS avoid sedatives limit narcotics (2) Wound infection after surgery: Plan: b/l groin -- 2nd ESBL klebsiella. blood cultures negative. remains on IV ertapenem 1gm IV daily. day #8 of such (previously on zosyn/daptomycin). original vascular surgery was on 05/02/[address] Sharp (intervention on b/l iliac artery thromboses). now POD #6 -- s/p I & D of right groin surgical site with drainage of hematoma and purulence along with debridement. wound vac now in place. wound vac was exchanged on 05/26 intra-op culture grew ESBL klebsiella. appreciate vascular surgery assistance. infectious disease consult completed - they advise once daily IV ertapenem while here, then change to PO levaquin 750mg daily at discharge. total 14 days of IV/PO therapy. Will change to po abx now Dr Sharp's team to look at wounds again on 05/28/22. Dr. Antonio thinks plan for discharge Thursday, but pt quite anxious to get out of the hospital so will see if can leave prior to Thursday-will d/w Vascular after they see him tomorrow (3) Right ankle pain: Plan: suspect this is neuropathic in origin based on the description of the pain no evidence of septic ankle no evidence of inflammatory arthropathy (gout, etc) x-rays of R foot/ankle wnl. femoral nerve irritation? increased gabapentin to 300mg HS a few nights ago. laura add on 100mg po qAM tomorrow cont to monitor. limit narcotics if possible. (4) Hematoma: Plan: b/l groin s/p I/D of R groin hematoma - POD #[address] L groin hematoma - per Dr Sharp no intervention needed (5) Cellulitis of lower extremity: Plan: LLE - resolved. (6) Atrial fibrillation with rapid ventricular response: Plan: Cont digoxin. Recent dig level wnl. Cont metoprolol succinate. Currently on 100mg qam; 25mg qhs. Eliquis on hold. Cont heparin infusion in lieu of Eliquis for now. Will not resume Eliquis until closer to discharge and after we are confident no further surgical intervention needed. (7) Acute blood loss anemia: Plan: 2nd to bleeding from groin operative sites and hematoma formation. H/H stable. Consider IV venofer. (8) Ischemic cardiomyopathy: Plan: With resulting chronic systolic CHF, EF 15%. Compensated. continue to HOLD spironolactone for now - oral intake has been very, very poor, and O2 sats 100% in RA. Cont AM metoprolol succinate 100mg. Cont PM metoprolol succinate 25mg. (9) UTI (urinary tract infection) due to urinary indwelling Jeff catheter: Plan: 2nd Klebsiella pneumoniae. Has received appropriate abx course while here for such. Jeff removed; voiding on own. 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 05/02/22 - s/p Bilateral Iliac and Femoral Embolectomy, Left Common Femoral Artery Endarterectomy with Bovine Patch, Right Common Artery Patch Angioplasty - by Dr Sharp. Then had bleeding from his incisions/wounds, b/l hematomas, and with evidence of ESBL Klebsiella infection. Cont abx as above s/p I & D of R groin hematoma, debridement of tissue, wound vac placement, etc. Eliquis on hold but heparin drip remains. Stopped dilaudid. norco prn in lieu. (11) LV (left ventricular) mural thrombus: Plan: Discovered 05/02/22 on echo. Placed on Eliquis at that time. Now on hold as above. Cont heparin drip. (12) CAD (coronary artery disease): Plan: No evidence of any ACS. Continue metoprolol, statin. (13) Depression: Plan: I am very concerned that his lack of appetite, flat affect, poor sleep, etc are all connected -- due to depression. Moved lexapro 10mg to the AM. Started remeron 7.5mg HS (14) Subarachnoid hemorrhage: Plan: H/o SDH in 2020 Required b/l frontal craniotomies in the past. 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: Plan: nothing needed (18) Candidiasis of mouth and esophagus: Plan: nystatin 5cc qid improved (19) Urinary retention: Plan: resolved jeff is out cont flomax (20) Chronic systolic CHF (congestive heart failure): Plan: 2nd ischemic cardiomyopathy compensated (21) AICD (automatic cardioverter/defibrillator) present: Plan: no recent discharges (22) Restless leg syndrome: Plan: cont ropinirole Plan updated pt's son at bedside today dispo - [facility] - hopefully by the end of this week as per my d/w Vascular Admission and Anticipated Discharge Date Admission Date: May 13, 2022 Subjective Feeling better. Still some pain in right leg and foot. Is working with PT currently. Seems to be in better spirits today but son at bedside reports that's because he thought he was being discharged today. Denies CP, SOB. Tele with Afib,, rates 80s Review of Systems Review of Systems: All systems reviewed & are unremarkable except as noted in HPI & below Physical Exam Physical Exam: gen - NAD,sitting at bedside skin -wound vac in place right groin; extensive ecchymoses left medial thigh cont to improve/resolve, no erythema left leg neck - no JVD heart - irregularly irregular, s1 s2, 2/6 systolic murmur lungs - CTA b/l abd - soft NT ND BS+ ext - cap refill brisk both feet; no foot/ankle edema b/l skin - demarkation lines left leg present; no cellulitis in this region; no erythema in either groin; felicia intact L groin wound; no drainage L groin Results & Data Results & Data ([facility]) Vital Signs (Past 12 Hours) Vital Signs Temp Pulse Pulse Pulse Resp BP Pulse Ox 05/27/22 11:41 36.8 C 83 20 101/64 97 05/27/22 08:06 36.9 C 87 19 121/73 97 05/27/22 07:33 85 05/27/22 07:33 05/27/22 03:27 36.8 C 75 18 95/60 L 95 O2 Del Method 05/27/22 11:41 Room Air 05/27/22 08:06 Room Air 05/27/22 07:33 05/27/22 07:33 Room Air 05/27/22 03:27 Room Air Laboratory Results 05/27/22 05/27/22 05/27/22 Range/Units 06:42 06:42 04:03 WBC 6.62 (4.8-10.8) K/ul RBC 3.20 L (4.63-6.08) M/uL Hgb 9.3 L (14.0-18.0) g/dl Hct 28.9 L (40.1-51.0) % MCV 90.3 (80.0-100.0) fL MCH 29.1 (25.0-34.0) pg MCHC 32.2 (32.0-36.0) g/dL RDW Std Deviation 57.1 H (36.4-46.3) fL RDW Coeff of [place] 17.5 H (11.5-14.5) % Plt Count 481 H (130-400) K/uL MPV 9.8 (9.4-12.4) fL Absolute Nucleated RBC 0.02 H (0-0) K/uL Nucleated RBC % (auto) 0.3 % APTT 62.8 H* (21.0-31.0) Seconds PTT Ratio 2.3 Sodium 137 (136-145) mmol/L Potassium 4.3 (3.5-5.1) mmol/L Chloride 102 (98-107) mmol/L Carbon Dioxide 27 (21-32) mmol/L Anion Gap 8 (3-11) BUN 15 (6-23) mg/dl Creatinine 0.76 (0.6-1.4) mg/dl Est Cr Clr Drug Dosing 100.6 ml/min Est GFR ( Amer) 104.9 ml/min Est GFR (Non-Af Amer) 90.5 ml/min BUN/Creatinine Ratio 19.7 (10-20) Glucose 128 H (70-99(Fasting)) mg/dl Calcium 8.9 (8.5-10.1) mg/dl PG Care Time/CCT Total # of Minutes Spent Total Time Spent with Patient: Total time spent is greater than 50% in coordination of care (as documented) at patient's floor/unit and/or counseling patient: Coding Level of Care Code 20204 SUB INP/OBS CARE 2/35MIN Diagnoses Acute encephalopathy G93.40 Wound infection after surgery T81.49XA Right ankle pain M25.571 Hematoma T14.8XXA Cellulitis of lower extremity L03.119 Atrial fibrillation with rapid ventricular response I48.91 Acute blood loss anemia D62 Ischemic cardiomyopathy I25.5 UTI (urinary tract infection) due to urinary indwelling Jeff catheter T83 .511A; N39.0 Acute occlusion of aortoiliac artery I74.09 LV (left ventricular) mural thrombus I51.3 CAD (coronary artery disease) I25.10 Depression F32.A Subarachnoid hemorrhage I60.9 Diabetes E11.9 Elevated LFTs R79.89 Geographic tongue K14.1 Candidiasis of mouth and esophagus B37.81; B37.0 Urinary retention R33.9 Chronic systolic CHF (congestive heart failure) I50.22 AICD (automatic cardioverter/defibrillator) present Z95.810 Restless leg syndrome G25.81
[2022-05-27] MEDS: DIGOXIN 0.125 MG TAB PO SCH (16:36)
[2022-05-27] MEDS: levoFLOXacin 750 MG TAB PO SCH (16:37)
[2022-05-27] MEDS: ATORVASTATIN 40 MG TAB PO SCH (16:37)
[2022-05-27] MEDS: TAMSULOSIN HCL 0.4 MG CAP PO SCH (20:30)
[2022-05-27] MEDS: MIRTAZAPINE SOLTAB 15 MG PO SCH (20:31)
[2022-05-27] MEDS: rOPINIRole HCL 0.25 MG TABLET PO SCH (20:32)
[2022-05-27] MEDS: GABAPENTIN 300 MG CAP PO SCH (20:32)
[2022-05-27] MEDS: METOPROLOL SUCC 25MG EXT REL TAB PO SCH (20:33)
[2022-05-28] MEDS: ACETAMINOPHEN 325 MG TAB PO SCH ×3 (01:11→17:55)
[2022-05-28] MEDS: HYDROCODONE/ACETAMINOPHEN 7.5/325MG TAB PO PRN ×2 (06:08→20:21)
[2022-05-28 06:37] LABS: Basophils # (auto) 0.06 K/uL (0-0.2); Eosinophils # (auto) 0.13 K/uL (0-0.50); Eosinophils % (auto) 2.1 %; Hematocrit (blood only) 29.2 % (40.1-51.0); Hemoglobin 9.4 g/dl (14.0-18.0); Immature Granulocytes # (auto) 0.05 K/uL (0.00-0.02); Immature Granulocytes % (auto) 0.8 %; Lymphocytes # (auto) 1.71 K/uL (1.2-3.4); Lymphocytes % (auto) 27.7 %; Mean Corpuscular Hemoglobin 28.8 pg (25.0-34.0); Mean Corpuscular Hgb Conc 32.2 g/dL (32.0-36.0); Mean Corpuscular Volume 89.6 fL (80.0-100.0); Mean Platelet Volume 9.4 fL (9.4-12.4); Monocytes # (auto) 0.65 K/uL (0.24-0.82); Monocytes % (auto) 10.5 %; Neutrophils # (auto) 3.57 K/uL (1.4-6.5); Neutrophils % (auto) 57.9 %; Platelet Count 462 K/uL (130-400); RDW Coefficient of Variation 17.4 % (11.5-14.5); RDW Standard Deviation 56.7 fL (36.4-46.3); Red Blood Count 3.26 M/uL (4.63-6.08); White Blood Count 6.17 K/ul (4.8-10.8)
[2022-05-28 07:03] LABS: Partial Thromboplastin Ratio 1.9
[2022-05-28 07:14] LABS: Partial Thromboplastin Time 52.7 Seconds (21.0-31.0)
[2022-05-28 07:15] LABS: Calcium 9.1 mg/dl (8.5-10.1); Creatinine Clr Calc Pharmacy 86.9 ml/min; Est GFR (African American) 98.8 ml/min; Est GFR (Non-African American) 85.2 ml/min; Magnesium 1.7 mg/dl (1.7-2.4); Potassium 4.3 mmol/L (3.5-5.1)
[2022-05-28] MEDS: HEPARIN SODIUM/DEXTROSE 25,000 UNITS/500 ML BAG IV SCH ×2 (07:26→23:34)
[2022-05-28] MEDS: CEROVITE ADV FORMULA TAB PO SCH (09:25)
[2022-05-28] MEDS: FERROUS SULFATE 325 MG TAB PO SCH ×2 (09:25→18:01)
[2022-05-28] MEDS: ADVANCED PROBIOTIC 1250 MG CAPSULE PO SCH (09:25)
[2022-05-28] MEDS: GABAPENTIN 100 MG CAP PO SCH (09:26)
[2022-05-28] MEDS: NYSTATIN SUSP 500,000 U/5 ML UDC PO SCH ×4 (09:26→21:42)
[2022-05-28] MEDS: MAGNESIUM SULFATE / D5W 1 GM/100 ML BAG IV SCH ×2 (09:53→12:20)
[2022-05-28] MEDS: METOPROLOL SUCC 50MG EXT REL TAB PO SCH (09:53)
[2022-05-28] MEDS: ESCITALOPRAM OXALATE 10 MG TAB PO SCH (09:54)
[2022-05-28] MEDS: levoFLOXacin 750 MG TAB PO SCH (12:19)
[2022-05-28] MEDS ORDERED: HYDROmorphone INJ 0.5 MG/0.5 ML SYR IV STA ×2 (12:48→13:40)
--- NOTE | 2022-05-28 13:47 | Surgery Progress Note ---
Date of Service May 28, 2022 Assessment & Plan (1) Infected wound: Plan: R groin wound vac changed today. Good granulation and minimal bleeding noted. R femoral artery/patch with good coverage. Pt tolerated well with dilaudid. L groin remains intact, dry, healing well. felicia removed today, no dehiscence. Continue abx. Will reeval on Thursday. Admission and Anticipated Discharge Date Admission Date: May 13, 2022 Subjective 71 yo M POD #7 after I&D of R groin wound and wound vac placement, seen in f/u today. Pt states pain has overall been tolerable with medications. Looking forward to discharge. No other new complaints. Review of Systems Review of Systems: All systems reviewed & are unremarkable except as noted in HPI & below Physical Exam Constitutional: WD/WN, vitals as above Cardiovascular: Vessels: posterior tibial pulses present (doppler) and dorsalis pedis pulses present (doppler); + abnormal peripheral pulses Extremities: normal capillary refill Skin: + wound (R groin deep wound with vac, excellent granulation, minimal bleeding. ) and + incision (L groin intact with felicia, +hematoma, felicia removed today. No drainage.); no erythema Results & Data ([facility]) Vital Signs (Past 12 Hours) Vital Signs Temp Pulse Pulse Pulse Resp BP Pulse Ox 05/28/22 11:26 36.8 C 78 20 116/74 97 05/28/22 08:00 91 H 05/28/22 08:00 05/28/22 02:53 36.7 C 84 95/58 L 96 O2 Del Method 05/28/22 11:26 Room Air 05/28/22 08:00 05/28/22 08:00 Room Air 05/28/22 02:53 Room Air
[2022-05-28] MEDS: ATORVASTATIN 40 MG TAB PO SCH (17:55)
[2022-05-28] MEDS: DIGOXIN 0.125 MG TAB PO SCH (17:55)
[2022-05-28] MEDS: rOPINIRole HCL 0.25 MG TABLET PO SCH (18:00)
--- NOTE | 2022-05-28 18:15 | Hospitalist Progress Note ---
Date of Service May 28, 2022 Assessment & Plan (1) Acute encephalopathy: Plan: Much improved but then slightly worse on 05/28 after receiving IV dilaudid for wound vac exchange likely overall 2/2 opioids and hospital psychosis continue remeron 7.5mg HS cont melatonin 3mg HS avoid sedatives limit narcotics (2) Wound infection after surgery: Plan: b/l groin -- 2nd ESBL klebsiella. blood cultures negative. Was on IV ertapenem 1gm IV daily x 8days (previously on zosyn/daptomycin) and now on Levaquin to finish out course original vascular surgery was on 05/02/[address] Sharp (intervention on b/l iliac artery thromboses). now POD #7 -- s/p I & D of right groin surgical site with drainage of hematoma and purulence along with debridement. wound vac now in place. wound vac was exchanged on 05/26 and again 05/28 intra-op culture grew ESBL klebsiella. appreciate vascular surgery assistance. infectious disease consult completed -complete total 14 days of IV/PO therapy- last day of tx will be 06/03 Dr. Sharp thinks plan for discharge Thursday after next wound vac exchange [place] removed from left groin site on 05/28 (3) Right ankle pain: Plan: suspect this is neuropathic in origin based on the description of the pain no evidence of septic ankle no evidence of inflammatory arthropathy (gout, etc) x-rays of R foot/ankle wnl. femoral nerve irritation? increased gabapentin to 300mg HS a few nights ago. added on 100mg po qAM on 05/28--> helping cont to monitor. limit narcotics if possible due to it causing confusion (4) Hematoma: Plan: b/l groin s/p I/D of R groin hematoma wound vac now in place groin hematoma - per Dr Sharp no intervention needed (5) Cellulitis of lower extremity: Plan: LLE - resolved. (6) Atrial fibrillation with rapid ventricular response: Plan: Rates better controlled Cont digoxin. Recent dig level wnl. Cont metoprolol succinate. Currently on 100mg qam; 25mg qhs. Eliquis on hold. Cont heparin infusion in lieu of Eliquis for now. Will not resume Eliquis until closer to discharge and after we are confident no further surgical intervention needed. (7) Acute blood loss anemia: Plan: 2nd to bleeding from groin operative sites and hematoma formation. H/H stable at 9.4 continue po iron tabs (8) Ischemic cardiomyopathy: Plan: With resulting chronic systolic CHF, EF 15%. Compensated. continue to HOLD spironolactone for now - oral intake has been very, very poor, and O2 sats 100% in RA. Will likely add aldactone back on tomrrow Cont AM metoprolol succinate 100mg. Cont PM metoprolol succinate 25mg. (9) UTI (urinary tract infection) due to urinary indwelling Jeff catheter: Plan: 2nd Klebsiella pneumoniae. Has received appropriate abx course while here for such. Jeff removed; voiding on own. 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 05/02/22 - s/p Bilateral Iliac and Femoral Embolectomy, Left Common Femoral Artery Endarterectomy with Bovine Patch, Right Common Artery Patch Angioplasty - by Dr Sharp. Then had bleeding from his incisions/wounds, b/l hematomas, and with evidence of ESBL Klebsiella infection. Cont abx as above s/p I & D of R groin hematoma, debridement of tissue, wound vac placement, etc. on 05/21 Eliquis on hold but heparin drip remains. Stopped dilaudid. norco prn in lieu. (11) LV (left ventricular) mural thrombus: Plan: Discovered 05/02/22 on echo. Placed on Eliquis at that time. Now on hold as above. Cont heparin drip. (12) CAD (coronary artery disease): Plan: No evidence of any ACS. Continue metoprolol, statin. (13) Depression: Plan: I am very concerned that his lack of appetite, flat affect, poor sleep, etc are all connected -- due to depression. Moved lexapro 10mg to the AM. Started remeron 7.5mg HS (14) Subarachnoid hemorrhage: Plan: H/o SDH in 2020 Required b/l frontal craniotomies in the past. 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: Plan: nothing needed (18) Candidiasis of mouth and esophagus: Plan: nystatin 5cc qid improved (19) Urinary retention: Plan: resolved jeff is out cont flomax (20) Chronic systolic CHF (congestive heart failure): Plan: 2nd ischemic cardiomyopathy compensated (21) AICD (automatic cardioverter/defibrillator) present: Plan: no recent discharges since those that brought him in this admission (22) Restless leg syndrome: Plan: cont ropinirole Plan dispo - [facility] - hopefully by the end of this week as per my d/w Vascular. He is accepted to [facility] but will need insurance auth-will ask CM to apply for auth on Admission and Anticipated Discharge Date Admission Date: May 13, 2022 Anticipated date of discharge: 05/30/22 Subjective Pt with flat affect. Received IV dilaudid today for wound vac exchange and has been a bit confused ever since as per RN. He was answering my questions in Wolof, but then would switch to Yi. Says his pain is better. Tele with Afib, rates 80-90s Review of Systems Review of Systems: All systems reviewed & are unremarkable except as noted in HPI & below Physical Exam Physical Exam: gen - NAD,lying in bed, mildly confused skin -wound vac in place right groin heart - irregularly irregular, s1 s2, 2/6 systolic murmur lungs - CTA b/l abd - soft NT ND BS+ ext - cap refill brisk both feet; no foot/ankle edema b/l skin - demarkation lines left leg present; no cellulitis in this region; no erythema in either groin; felicia now removed from L groin wound; no drainage L groin, still with hematoma present Results & Data Results & Data ([facility]) Vital Signs (Past 12 Hours) Vital Signs Temp Pulse Pulse Resp BP Pulse Ox O2 Del Method 05/28/22 17:55 88 05/28/22 15:56 36.4 C L 77 17 98/63 L 97 Room Air 05/28/22 11:26 36.8 C 78 20 116/74 97 Room Air 05/28/22 08:00 91 H 05/28/22 08:00 Room Air Laboratory Results 05/28/22 05/28/22 05/28/22 Range/Units 06:05 06:05 06:05 WBC 6.17 (4.8-10.8) K/ul RBC 3.26 L (4.63-6.08) M/uL Hgb 9.4 L (14.0-18.0) g/dl Hct 29.2 L (40.1-51.0) % MCV 89.6 (80.0-100.0) fL MCH 28.8 (25.0-34.0) pg MCHC 32.2 (32.0-36.0) g/dL RDW Std Deviation 56.7 H (36.4-46.3) fL RDW Coeff of [place] 17.4 H (11.5-14.5) % Plt Count 462 H (130-400) K/uL MPV 9.4 (9.4-12.4) fL Immature Gran % (Auto) 0.8 % Neut % (Auto) 57.9 % Lymph % (Auto) 27.7 % [place] % (Auto) 10.5 % Eos % (Auto) 2.1 % Baso % (Auto) 1.0 % Neut # (Auto) 3.57 (1.4-6.5) K/uL Lymph # (Auto) 1.71 (1.2-3.4) K/uL [place] # (Auto) 0.65 (0.24-0.82) K/uL Eos # (Auto) 0.13 (0-0.50) K/uL Baso # (Auto) 0.06 (0-0.2) K/uL Immature Gran # (Auto) 0.05 H (0.00-0.02) K/uL APTT 52.7 H* (21.0-31.0) Seconds PTT Ratio 1.9 Sodium 137 (136-145) mmol/L Potassium 4.3 (3.5-5.1) mmol/L Chloride 102 (98-107) mmol/L Carbon Dioxide 29 (21-32) mmol/L Anion Gap 6 (3-11) BUN 15 (6-23) mg/dl Creatinine 0.88 (0.6-1.4) mg/dl Est Cr Clr Drug Dosing 86.9 ml/min Est GFR ( Amer) 98.8 ml/min Est GFR (Non-Af Amer) 85.2 ml/min BUN/Creatinine Ratio 17.0 (10-20) Glucose 115 H (70-99(Fasting)) mg/dl Calcium 9.1 (8.5-10.1) mg/dl Magnesium 1.7 (1.7-2.4) mg/dl PG Care Time/CCT Total # of Minutes Spent Total Time Spent with Patient: Total time spent is greater than 50% in coordination of care (as documented) at patient's floor/unit and/or counseling patient: Coding Level of Care Code 86566 SUB INP/OBS CARE 2/35MIN Diagnoses Acute encephalopathy G93.40 Wound infection after surgery T81.49XA Right ankle pain M25.571 Hematoma T14.8XXA Cellulitis of lower extremity L03.119 Atrial fibrillation with rapid ventricular response I48.91 Acute blood loss anemia D62 Ischemic cardiomyopathy I25.5 UTI (urinary tract infection) due to urinary indwelling Jeff catheter T83.511A; N39.0 Acute occlusion of aortoiliac artery I74.09 LV (left ventricular) mural thrombus I51.3 CAD (coronary artery disease) I25.10 Depression F32.A Subarachnoid hemorrhage I60.9 Diabetes E11.9 Elevated LFTs R79.89 Geographic tongue K14.1 Candidiasis of mouth and esophagus B37.81; B37.0 Urinary retention R33.9 Chronic systolic CHF (congestive heart failure) I50.22 AICD (automatic cardioverter/defibrillator) present Z95.810 Restless leg syndrome G25.81
[2022-05-28] MEDS: MELATONIN 3 MG TAB PO SCH (21:42)
[2022-05-28] MEDS: MIRTAZAPINE SOLTAB 15 MG PO SCH (21:42)
[2022-05-28] MEDS: TAMSULOSIN HCL 0.4 MG CAP PO SCH (21:42)
[2022-05-28] MEDS: METOPROLOL SUCC 25MG EXT REL TAB PO SCH (21:42)
[2022-05-28] MEDS: GABAPENTIN 300 MG CAP PO SCH (21:43)
[2022-05-29] MEDS: ACETAMINOPHEN 325 MG TAB PO SCH ×3 (01:04→16:13)
[2022-05-29] MEDS: HYDROCODONE/ACETAMINOPHEN 7.5/325MG TAB PO PRN ×3 (02:58→18:04)
[2022-05-29] MEDS: HEPARIN SODIUM/DEXTROSE 25,000 UNITS/500 ML BAG IV SCH ×2 (06:09→22:26)
[2022-05-29 06:50] LABS: Basophils # (auto) 0.09 K/uL (0-0.2); Basophils % (auto) 1.3 %; Eosinophils # (auto) 0.13 K/uL (0-0.50); Eosinophils % (auto) 1.9 %; Hematocrit (blood only) 29.1 % (40.1-51.0); Hemoglobin 9.3 g/dl (14.0-18.0); Immature Granulocytes # (auto) 0.04 K/uL (0.00-0.02); Immature Granulocytes % (auto) 0.6 %; Lymphocytes % (auto) 30.3 %; Mean Corpuscular Volume 90.7 fL (80.0-100.0); Mean Platelet Volume 9.4 fL (9.4-12.4); Monocytes # (auto) 0.77 K/uL (0.24-0.82); Monocytes % (auto) 11.1 %; Neutrophils # (auto) 3.79 K/uL (1.4-6.5); Neutrophils % (auto) 54.8 %; Platelet Count 402 K/uL (130-400); RDW Coefficient of Variation 17.5 % (11.5-14.5); RDW Standard Deviation 56.6 fL (36.4-46.3); Red Blood Count 3.21 M/uL (4.63-6.08); White Blood Count 6.92 K/ul (4.8-10.8)
[2022-05-29 07:46] LABS: Partial Thromboplastin Ratio 2.3
[2022-05-29] MEDS: ADVANCED PROBIOTIC 1250 MG CAPSULE PO SCH (08:03)
[2022-05-29] MEDS: GABAPENTIN 100 MG CAP PO SCH (08:03)
[2022-05-29] MEDS: METOPROLOL SUCC 50MG EXT REL TAB PO SCH (08:03)
[2022-05-29] MEDS: ESCITALOPRAM OXALATE 10 MG TAB PO SCH (08:03)
[2022-05-29] MEDS: NYSTATIN SUSP 500,000 U/5 ML UDC PO SCH ×4 (08:04→21:15)
[2022-05-29] MEDS: CEROVITE ADV FORMULA TAB PO SCH (08:04)
[2022-05-29] MEDS: FERROUS SULFATE 325 MG TAB PO SCH ×2 (08:04→16:13)
[2022-05-29 09:20] LABS: BUN Creatinine Ratio 16.7 (10-20); Calcium 8.9 mg/dl (8.5-10.1); Creatinine Clr Calc Pharmacy 91.1 ml/min; Est GFR (African American) 100.7 ml/min; Est GFR (Non-African American) 86.9 ml/min; Magnesium 1.8 mg/dl (1.7-2.4); Potassium 4.4 mmol/L (3.5-5.1)
[2022-05-29] MEDS ORDERED: bisacodyL 10 MG SUPP PR STA (09:22)
[2022-05-29] MEDS: levoFLOXacin 750 MG TAB PO SCH (12:18)
[2022-05-29] MEDS: DOCUSATE SODIUM/SENNA 50/8.6MG TAB PO SCH ×2 (12:18→21:15)
[2022-05-29] MEDS: POLYETHYLENE (MIRALAX) 17 GM PACK PO SCH (12:18)
[2022-05-29] MEDS ORDERED: MAGNESIUM SULFATE / D5W 1 GM/100 ML BAG IV ONE (15:26)
[2022-05-29] MEDS ORDERED: bisacodyL 5 MG TABEC PO ONE ×2 (16:11→16:30)
[2022-05-29] MEDS: ATORVASTATIN 40 MG TAB PO SCH (16:13)
[2022-05-29] MEDS: DIGOXIN 0.125 MG TAB PO SCH (16:13)
--- NOTE | 2022-05-29 17:11 | Hospitalist Progress Note ---
Date of Service May 29, 2022 Assessment & Plan (1) Acute encephalopathy: Plan: Much improved but then slightly worse on 05/28 after receiving IV dilaudid for wound vac exchange likely overall 2/2 opioids and hospital psychosis continue remeron 7.5mg HS cont melatonin 3mg HS avoid sedatives limit narcotics (2) Wound infection after surgery: Plan: b/l groin -- 2nd ESBL klebsiella. blood cultures negative. Was on IV ertapenem 1gm IV daily x 8days (previously on zosyn/daptomycin) and now on Levaquin to finish out course original vascular surgery was on 05/02/[address] Sharp (intervention on b/l iliac artery thromboses). now POD #8 -- s/p I & D of right groin surgical site with drainage of hematoma and purulence along with debridement. wound vac now in place. wound vac was exchanged on 05/26 and again 05/28 intra-op culture grew ESBL klebsiella. appreciate vascular surgery assistance. infectious disease consult completed -complete total 14 days of IV/PO therapy- last day of tx will be 06/03 Dr. Sharp thinks plan for discharge Thursday after next wound vac exchange [place] removed from left groin site on 05/28 (3) Right ankle pain: Plan: suspect this is neuropathic in origin based on the description of the pain no evidence of septic ankle no evidence of inflammatory arthropathy (gout, etc) x-rays of R foot/ankle wnl. femoral nerve irritation? increased gabapentin to 300mg HS a few nights ago. added on 100mg po qAM on 05/28--> helping quite a bit, no need to further up titrate at this point cont to monitor. limit narcotics if possible due to it causing confusion (4) Hematoma: Plan: b/l groin s/p I/D of R groin hematoma wound vac now in place groin hematoma on left - per Dr Sharp no intervention needed (5) Cellulitis of lower extremity: Plan: LLE - resolved. (6) Atrial fibrillation with rapid ventricular response: Plan: Rates better controlled Cont digoxin. Recent dig level wnl. Cont metoprolol succinate. Currently on 100mg qam; 25mg qhs. Eliquis on hold but will plan to restart tomorrow as no further surgery needed at this point Cont heparin infusion in lieu of Eliquis for now. (7) Acute blood loss anemia: Plan: 2nd to bleeding from groin operative sites and hematoma formation. H/H stable at 9.3 for many days continue po iron tabs (8) Ischemic cardiomyopathy: Plan: With resulting chronic systolic CHF, EF 15%. Compensated. continue to HOLD spironolactone for now - oral intake has been very, very poor, and O2 sats 100% in RA. Will add aldactone back on today Cont AM metoprolol succinate 100mg. Cont PM metoprolol succinate 25mg. (9) UTI (urinary tract infection) due to urinary indwelling Jeff catheter: Plan: 2nd Klebsiella pneumoniae. Has received appropriate abx course while here for such. Jeff removed; voiding on own. 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 05/02/22 - s/p Bilateral Iliac and Femoral Embolectomy, Left Common Femoral Artery Endarterectomy with Bovine Patch, Right Common Artery Patch Angioplasty - by Dr Sharp. Then had bleeding from his incisions/wounds, b/l hematomas, and with evidence of ESBL Klebsiella infection. Cont abx as above s/p I & D of R groin hematoma, debridement of tissue, wound vac placement, etc. on 05/21 Eliquis on hold but heparin drip remains. Stopped dilaudid. norco prn in lieu. (11) LV (left ventricular) mural thrombus: Plan: Discovered 05/02/22 on echo. Placed on Eliquis at that time. Now on hold as above. Cont heparin drip. (12) CAD (coronary artery disease): Plan: No evidence of any ACS. Continue metoprolol, statin. (13) Depression: Plan: lack of appetite, flat affect, poor sleep, etc are all connected -- due to depression. Moved lexapro 10mg to the AM. Started remeron 7.5mg HS Appetite now improving (14) Subarachnoid hemorrhage: Plan: H/o SDH in 2020 Required b/l frontal craniotomies in the past. 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: Plan: nothing needed (18) Candidiasis of mouth and esophagus: Plan: nystatin 5cc qid improved (19) Urinary retention: Plan: resolved jeff is out cont flomax (20) Chronic systolic CHF (congestive heart failure): Plan: 2nd ischemic cardiomyopathy compensated (21) AICD (automatic cardioverter/defibrillator) present: Plan: no recent discharges since those that brought him in this admission (22) Restless leg syndrome: Plan: cont ropinirole (23) Constipation: Plan: Severe, no BM recorded since 04/17 which may not be accurate start Miralax daily, senna/docusate bid, and give bisacodyl 5mg po x 1 now pt declined rectal suppository but may need enema tomorrow Plan dispo - [facility] - hopefully tomorrow as per my d/w Vascular. He is accepted to [facility] -awaiting insurance auth Admission and Anticipated Discharge Date Admission Date: May 13, 2022 Subjective Pt reports pain is improved in RLE. No BM recorded since 04/17. Appetite improved today. Review of Systems Review of Systems: All systems reviewed & are unremarkable except as noted in HPI & below Physical Exam Physical Exam: gen - NAD,lying in bed, mildly confused intermittently skin -wound vac in place right groin heart - irregularly irregular, s1 s2, 2/6 systolic murmur lungs - CTA b/l abd - soft NT ND BS+ ext - cap refill brisk both feet; no foot/ankle edema b/l skin - demarkation lines left leg present; no cellulitis in this region; no erythema in either groin; felicia now removed from L groin wound; no drainage L groin, still with hematoma present Results & Data Results & Data ([facility]) Vital Signs (Past 12 Hours) Vital Signs Temp Pulse Pulse Pulse Resp BP Pulse Ox 05/29/22 16:13 82 05/29/22 15:08 36.8 C 77 20 101/59 L 92 05/29/22 11:42 36.8 C 81 19 115/63 98 05/29/22 08:00 87 05/29/22 08:00 05/29/22 08:09 36.6 C 91 H 18 119/67 94 O2 Del Method 05/29/22 16:13 05/29/22 15:08 Room Air 05/29/22 11:42 Room Air 05/29/22 08:00 05/29/22 08:00 Room Air 05/29/22 08:09 Room Air Laboratory Results 05/29/22 05/29/22 05/29/22 Range/Units 06:30 06:30 06:30 WBC 6.92 (4.8-10.8) K/ul RBC 3.21 L (4.63-6.08) M/uL Hgb 9.3 L (14.0-18.0) g/dl Hct 29.1 L (40.1-51.0) % MCV 90.7 (80.0-100.0) fL MCH 29.0 (25.0-34.0) pg MCHC 32.0 (32.0-36.0) g/dL RDW Std Deviation 56.6 H (36.4-46.3) fL RDW Coeff of [place] 17.5 H (11.5-14.5) % Plt Count 402 H (130-400) K/uL MPV 9.4 (9.4-12.4) fL Immature Gran % (Auto) 0.6 % Neut % (Auto) 54.8 % Lymph % (Auto) 30.3 % Stone % (Auto) 11.1 % Eos % (Auto) 1.9 % Baso % (Auto) 1.3 % Neut # (Auto) 3.79 (1.4-6.5) K/uL Lymph # (Auto) 2.10 (1.2-3.4) K/uL Stone # (Auto) 0.77 (0.24-0.82) K/uL Eos # (Auto) 0.13 (0-0.50) K/uL Baso # (Auto) 0.09 (0-0.2) K/uL Immature Gran # (Auto) 0.04 H (0.00-0.02) K/uL APTT 62.0 H* (21.0-31.0) Seconds PTT Ratio 2.3 Sodium 137 (136-145) mmol/L Potassium 4.4 (3.5-5.1) mmol/L Chloride 104 (98-107) mmol/L Carbon Dioxide 28 (21-32) mmol/L Anion Gap 5 (3-11) BUN 14 (6-23) mg/dl Creatinine 0.84 (0.6-1.4) mg/dl Est Cr Clr Drug Dosing 91.1 ml/min Est GFR ( Amer) 100.7 ml/min Est GFR (Non-Af Amer) 86.9 ml/min BUN/Creatinine Ratio 16.7 (10-20) Glucose 114 H (70-99(Fasting)) mg/dl Calcium 8.9 (8.5-10.1) mg/dl Magnesium 1.8 (1.7-2.4) mg/dl PG Care Time/CCT Total # of Minutes Spent Total Time Spent with Patient: Total time spent is greater than 50% in coordination of care (as documented) at patient's floor/unit and/or counseling patient: Coding Level of Care Code 14289 SUB INP/OBS CARE 2/35MIN Diagnoses Acute encephalopathy G93.40 Wound infection after surgery T81.49XA Right ankle pain M25.571 Hematoma T14.8XXA Cellulitis of lower extremity L03.119 Atrial fibrillation with rapid ventricular response I48.91 Acute blood loss anemia D62 Ischemic cardiomyopathy I25.5 UTI (urinary tract infection) due to urinary indwelling Jeff catheter T83.511A; N39.0 Acute occlusion of aortoiliac artery I74.09 LV (left ventricular) mural thrombus I51.3 CAD (coronary artery disease) I25.10 Depression F32.A Subarachnoid hemorrhage I60.9 Diabetes E11.9 Elevated LFTs R79.89 Geographic tongue K14.1 Candidiasis of mouth and esophagus B37.81; B37.0 Urinary retention R33.9 Chronic systolic CHF (congestive heart failure) I50.22 AICD (automatic cardioverter/defibrillator) present Z95.810 Restless leg syndrome G25.81 Constipation K59.00
[2022-05-29] MEDS: rOPINIRole HCL 0.25 MG TABLET PO SCH (19:43)
[2022-05-29] MEDS: SPIRONOLACTONE 25 MG TAB PO SCH (21:15)
[2022-05-29] MEDS: TAMSULOSIN HCL 0.4 MG CAP PO SCH (21:15)
[2022-05-29] MEDS: MELATONIN 3 MG TAB PO SCH (21:15)
[2022-05-29] MEDS: MIRTAZAPINE SOLTAB 15 MG PO SCH (21:16)
[2022-05-29] MEDS: METOPROLOL SUCC 25MG EXT REL TAB PO SCH (21:16)
[2022-05-29] MEDS: GABAPENTIN 300 MG CAP PO SCH (21:17)
[2022-05-30] MEDS: ACETAMINOPHEN 325 MG TAB PO SCH ×2 (01:31→10:06)
[2022-05-30] MEDS: HYDROCODONE/ACETAMINOPHEN 7.5/325MG TAB PO PRN ×2 (04:45→11:58)
[2022-05-30 04:55] LABS: Basophils # (auto) 0.07 K/uL (0-0.2); Eosinophils # (auto) 0.12 K/uL (0-0.50); Eosinophils % (auto) 1.8 %; Hematocrit (blood only) 29.7 % (40.1-51.0); Hemoglobin 9.4 g/dl (14.0-18.0); Immature Granulocytes # (auto) 0.04 K/uL (0.00-0.02); Immature Granulocytes % (auto) 0.6 %; Lymphocytes # (auto) 2.11 K/uL (1.2-3.4); Mean Corpuscular Hemoglobin 28.7 pg (25.0-34.0); Mean Corpuscular Hgb Conc 31.6 g/dL (32.0-36.0); Mean Corpuscular Volume 90.8 fL (80.0-100.0); Mean Platelet Volume 9.5 fL (9.4-12.4); Monocytes % (auto) 10.3 %; Neutrophils # (auto) 3.77 K/uL (1.4-6.5); Neutrophils % (auto) 55.3 %; Platelet Count 384 K/uL (130-400); RDW Coefficient of Variation 17.8 % (11.5-14.5); RDW Standard Deviation 58.3 fL (36.4-46.3); Red Blood Count 3.27 M/uL (4.63-6.08); White Blood Count 6.81 K/ul (4.8-10.8)
[2022-05-30 05:22] LABS: Partial Thromboplastin Ratio 2.9
[2022-05-30 05:40] LABS: BUN Creatinine Ratio 14.8 (10-20); Creatinine Clr Calc Pharmacy 94.4 ml/min; Est GFR (African American) 102.2 ml/min; Est GFR (Non-African American) 88.2 ml/min; Magnesium 1.8 mg/dl (1.7-2.4); Potassium 4.1 mmol/L (3.5-5.1)
[2022-05-30 05:47] LABS: Partial Thromboplastin Time 80.9 Seconds (21.0-31.0)
[2022-05-30] MEDS ORDERED: MAGNESIUM SULFATE / D5W 1 GM/100 ML BAG IV ONE (08:42)
[2022-05-30] MEDS ORDERED: bisacodyL 10 MG SUPP PR STA (08:44)
[2022-05-30] MEDS ORDERED: HYDROmorphone INJ 0.5 MG/0.5 ML SYR IV STA (08:51)
[2022-05-30] MEDS ORDERED: APIXABAN 5 MG TABLET PO SCH (09:00)
[2022-05-30] MEDS: NYSTATIN SUSP 500,000 U/5 ML UDC PO SCH (10:07)
[2022-05-30] MEDS: ADVANCED PROBIOTIC 1250 MG CAPSULE PO SCH (10:07)
[2022-05-30] MEDS: METOPROLOL SUCC 50MG EXT REL TAB PO SCH (10:07)
[2022-05-30] MEDS: GABAPENTIN 100 MG CAP PO SCH (10:08)
[2022-05-30] MEDS: levoFLOXacin 750 MG TAB PO SCH (10:08)
[2022-05-30] MEDS: FERROUS SULFATE 325 MG TAB PO SCH (10:08)
[2022-05-30] MEDS: CEROVITE ADV FORMULA TAB PO SCH (10:09)
[2022-05-30] MEDS: ESCITALOPRAM OXALATE 10 MG TAB PO SCH (10:09)
[2022-05-30] MEDS: POLYETHYLENE (MIRALAX) 17 GM PACK PO SCH (10:24)
[2022-05-30] MEDS: DOCUSATE SODIUM/SENNA 50/8.6MG TAB PO SCH (10:24)
--- NOTE | 2022-05-30 10:28 | Surgery Progress Note ---
Date of Service May 30, 2022 Assessment & Plan (1) Infected wound: Plan: R groin wound vac changed today. Excellent granulation and minimal bleeding noted. R femoral artery/patch with good coverage. Pt tolerated well with dilaudid. L groin remains intact, dry, healing well, hematoma softening. Continue wound vac changes M/W/F, and abx per ID recs. Ok for discharge. Will see in office in 2 weeks. Admission and Anticipated Discharge Date Admission Date: May 13, 2022 Subjective 71 yo m s/p R groin wound debridement, seenin f/u today. Pt admits some discomfort in R ankle, but denies pain in groin. No other new complaints Review of Systems Review of Systems: All systems reviewed & are unremarkable except as noted in HPI & below Physical Exam Constitutional: WD/WN, vitals as above Cardiovascular: Vessels: posterior tibial pulses present (doppler) and dorsalis pedis pulses present (doppler); + abnormal peripheral pulses Extremities: normal capillary refill Skin: + wound (R groin deep wound with vac, excellent granulation, minimal bleeding. ) and + incision (L groin intact with felicia, +hematoma, felicia removed today. No drainage.); no erythema L groin hematoma softening. Results & Data ([facility]) Vital Signs (Past 12 Hours) Vital Signs Temp Pulse Pulse Resp BP Pulse Ox O2 Del Method 05/30/22 08:00 36.5 C 77 18 103/69 94 Room Air 05/30/22 02:56 36.5 C 83 16 109/65 97 Room Air 05/29/22 22:52 36.8 C 74 18 96/62 L 98 Room Air
--- NOTE | 2022-05-30 12:44 | Discharge Summary ---
Date of Service May 30, 2022 Admission HPI Per Admitting Provider 71yo M w/ hx of PAD and afib who presents with afib with RVR and leukocytosis. Had prolonged hospital course earlier this month due acute thrombotic event requiring Bilateral Iliac and Femoral Embolectomy, Left Common Femoral Artery Endarterectomy with Bovine Patch, Right Common Artery Patch Angioplasty(Left) with Aaron Sharp on 05/02/2022. Was discharged to [facility] after prolonged course including hypotension that was thought to be due to tachycardia from his afib. Per his room mate, the patient had some sort of breathing issue overnight and was found to be in afib with RVR. He was sent here, where he responded to diltiazem 20 mg IV x 1 push. Principal Diagnosis ICD firing, Rapid atrial fibrillation Right groin infected hematoma and surgical site Bilateral groin post-op hematomas Discharge Exam gen - NAD,lying in bed,no confusion, flat affect skin -wound vac in place right groin heart - irregularly irregular, s1 s2, 2/6 systolic murmur lungs - CTA b/l abd - soft NT ND BS+ ext - cap refill brisk both feet; no foot/ankle edema b/l , right ankle with lateral wound with dressing in place, right heel black skin - demarkation lines left leg present; no cellulitis in this region; no erythema in either groin; martha now removed from L groin wound; no drainage L groin, still with hematoma present but much less swollen Discharge Data Allergies Allergy/AdvReac Type Severity Reaction Status Date / Time No Known Allergies Allergy Verified 05/21/22 10:34 Consultations 05/13/22 04:16 ED Decision to Admit Stat 05/13/22 07:36 Consult Cardiology Routine 05/19/22 09:28 Consult Naphthalene Still Operator Stat 05/20/22 09:35 Consult Vascular Surgery Stat 05/23/22 08:58 Consult Infectious Diseases Routine Procedures Performed Operation Date: 05/21/22 11:10 Actual Procedures p Right Groin Debridement, Pulse Lavage and Application Wound Vac(Right) - Aaron Sharp MD Ordered Studies 05/18/22 14:58 CT leg [CT femur LT w con] Routine CT leg [CT femur RT w con] Routine Hospital Course (1) Wound infection after surgery: b/l groin -- 2nd ESBL klebsiella. blood cultures negative. Was on IV ertapenem 1gm IV daily x 8days (previously on zosyn/daptomycin) and now on Levaquin to finish out course original vascular surgery was on 05/02/[address] Sharp (intervention on b/l iliac artery thromboses). now POD #8 -- s/p I & D of right groin surgical site with drainage of hematoma and purulence along with debridement. wound vac now in place. wound vac was exchanged on 05/26 and again 05/28, 05/30--> continue wound vac changes MWF intra-op culture grew ESBL klebsiella. appreciate vascular surgery assistance. infectious disease consult completed -complete total 14 days of IV/PO therapy- last day of tx will be 06/03 Martha removed from left groin site on 05/28 F/u Dr. Sharp in 2 weeks (2) Acute encephalopathy: Much improved but then slightly worse on 05/28 after receiving IV dilaudid for wound vac exchange likely overall 2/2 opioids and hospital psychosis continue remeron 7.5mg HS cont melatonin 3mg HS avoid sedatives limit narcotics (3) Right ankle pain: suspect this is neuropathic in origin based on the description of the pain also with wound/ulcer on right ankle and black heel from pressure injury no evidence of septic ankle no evidence of inflammatory arthropathy (gout, etc) x-rays of R foot/ankle wnl. femoral nerve irritation? increased gabapentin to 300mg HS and added on 100mg po qAM on 05/28--> helping quite a bit, no need to further up titrate at this point cont to monitor. limit narcotics if possible due to it causing confusion but can take prn [place] on scheduled tylenol (4) Hematoma: b/l groin s/p I/D of R groin hematoma wound vac now in place groin hematoma on left - per Dr Sharp no intervention needed , improving (5) Cellulitis of lower extremity: LLE - resolved. (6) Atrial fibrillation with rapid ventricular response: Rates better controlled Cont digoxin. Recent dig level wnl. Cont metoprolol succinate. Currently on 100mg qam; 25mg qhs. Eliquis restarted after being on heparin gtt in perioperative period (7) Acute blood loss anemia: 2nd to bleeding from groin operative sites and hematoma formation. H/H stable at 9.3 for many days continue po iron tabs (8) Ischemic cardiomyopathy: With resulting chronic systolic CHF, EF 15%. Compensated. continue aldactone Cont AM metoprolol succinate 100mg. Cont PM metoprolol succinate 25mg. lasix prn (9) UTI (urinary tract infection) due to urinary indwelling Jeff catheter: 2nd Klebsiella pneumoniae. Has received appropriate abx course while here for such. Jeff removed; voiding on own. (10) Acute occlusion of aortoiliac artery: Acute thrombus in aorta and bilateral iliac arteries secondary to LV thrombus with embolism. 05/02/22 - s/p Bilateral Iliac and Femoral Embolectomy, Left Common Femoral Artery Endarterectomy with Bovine Patch, Right Common Artery Patch Angioplasty - by Dr Sharp. Then had bleeding from his incisions/wounds, b/l hematomas, and with evidence of ESBL Klebsiella infection. Cont abx as above s/p I & D of R groin hematoma, debridement of tissue, wound vac placement, etc. on 05/21 continue ELiquis norco prn pain (11) LV (left ventricular) mural thrombus: Discovered 05/02/22 on echo. Placed on Eliquis x 3 months-reassess continuing Eliquis at that time afterwards due to h/o ICH (12) CAD (coronary artery disease): No evidence of any ACS. Continue metoprolol, statin. (13) Depression: lack of appetite, flat affect, poor sleep, etc are all connected -- due to depression. Moved lexapro 10mg to the AM. Started remeron 7.5mg HS Appetite now improving (14) Subarachnoid hemorrhage: H/o SDH in 2020 Required b/l frontal craniotomies in the past. Trace SAH during recent admission for LV thrombus repeat head CT on 05/07 showed resolution of trace SAH (15) Diabetes: recent HgbA1C only 6.1% BSGs wnl minimal insulin usage stopped BSG checks and insulin (16) Elevated LFTs: Resolved (17) Geographic tongue: nothing needed (18) Candidiasis of mouth and esophagus: nystatin 5cc qid improved -stop nystatin (19) Urinary retention: resolved jeff is out cont flomax (20) Chronic systolic CHF (congestive heart failure): 2nd ischemic cardiomyopathy compensated (21) AICD (automatic cardioverter/defibrillator) present: no recent discharges since those that brought him in this admission (22) Restless leg syndrome: cont ropinirole (23) Constipation: Severe, no BM recorded since 04/17 which may not be accurate as pt reports he has been moving his bowels start Miralax daily, senna/docusate bid, and gave bisacodyl 5mg po x 1 pt declined rectal suppository abdomen is soft, no nausea -continue bowl regimen at rehab Plan dispo - [facility] -today Total Time Total Time Spent Total Time Spent (In Minutes): 35 min Discharge Plan Discharge Items Patient Disposition: Transfer Inpatient Rehab Fac Reason For Visit: ICD FIRING, AFIB WITH RVR, CELLULITIS Discharge Diagnosis: ICD firing, Rapid atrial fibrillation, LLE cellulitis, Right groin infection and bilateral hematomas Condition on Discharge: Fair Activity: As commented below Bathing: Keep incision dry Exercise/Sports: Gradually increase as tolerated Non-emergency contact: Primary Care Provider and Surgeon Call non-emergency contact if: you have any medication questions, your symptoms worsen and you have a fever Follow-up/Referrals: Nehemias Acosta DO [Primary Care Provider] - Aaron Sharp MD [Physician] - (Follow up in 2 weeks.) Diet: Heart Healthy and Low Sodium (2gm) Fluids: 1500ml (6 cups) Addtl Attending Provider Instructions: Please finish out the course of oral antibiotics with Levaquin. Continue with wound vac changes on MWF and follow up with Vascular Surgeon in 2 weeks. Pain control with tylenol and norco as needed, especially prior to wound vac changes. You were also increased on your doses of gabapentin. Follow up with Cardiology for your heart failure and atrial fibrillation. You are on Eliquis for 3 months for the clot in your heart. After that, it will likely be discontinued due to your history of bleeding in the brain. For your depression and poor appetite, you were started on mirtazapine. Please continue on your bowel regimen for constipation. Pending Studies at Discharge: No Stand-Alone Forms: My [employer] Skilled Items Patient informed of condition?: Yes DNR: No Discharge Level of Care: Acute rehab Communicable Disease: No Discharge Prognosis: Improving Lines: None Urinary Catheter: No Medications and DC Order Prescriptions: New levofloxacin 750 mg Tablet 750 mg PO DAILY@1100 Qty: 4 0RF metoprolol succinate 100 mg tablet extended release 24 hr 100 mg PO DAILY Qty: 30 0RF acetaminophen 325 mg Tablet 650 mg PO Q8H Qty: 60 0RF digoxin [Digitek] 125 mcg (0.125 mg) Tablet 0.125 mg PO DAILY@1600 Qty: 30 0RF hydrocodone-acetaminophen 7.5-325 mg Tablet 1 tab PO Q6H PRN (Reason: pain) Qty: 10 0RF gabapentin 100 mg Capsule 100 mg PO QAM Qty: 30 0RF mirtazapine 7.5 mg tablet 7.5 mg PO HS Qty: 30 0RF polyethylene glycol 3350 [Miralax] 17 gram Powder In Packet 17 g PO DAILY Qty: 30 0RF Advanced Probiotic 625 mg (10 billion cell) Capsule 2 cap PO DAILY Qty: 60 0RF sennosides-docusate sodium [Senokot-S] 8.6-50 mg Tablet 1 tab PO BID Qty: 60 0RF melatonin 3 mg Tablet 3 mg PO HS Qty: 30 0RF Cerovite Senior 0.4 mg-300 mcg- 250 mcg Tablet 1 tab PO QAM Qty: 30 0RF Continued furosemide 20 mg tablet 10 mg PO DAILY PRN (Reason: edema) Qty: 90 3RF metformin 500 mg tablet 500 mg PO BID Qty: 180 3RF allopurinol 100 mg tablet 100 mg PO DAILY atorvastatin 80 mg tablet 80 mg PO QPM Rx Instructions: TAKES IN AFTERNOON spironolactone 25 mg tablet 25 mg PO QPM ropinirole 0.25 mg tablet 0.5 mg PO HS Rx Instructions: TAKES 1-2 HOURS PRIOR TO HS. tamsulosin 0.4 mg Capsule 0.4 mg PO HS Qty: 20 0RF apixaban 5 mg tablet 5 mg PO Q12H Qty: 60 0RF ferrous gluconate 324 mg (37.5 mg iron) tablet 324 mg PO BID Qty: 90 0RF gabapentin 300 mg Capsule 300 mg PO PM Qty: 30 0RF Changed metoprolol succinate 25 mg tablet extended release 24 hr 25 mg PO HS Qty: 30 2RF Rx Instructions: take with the 50 mg escitalopram oxalate [Lexapro] 10 mg tablet 10 mg PO QAM Qty: 30 0RF Discontinued metoprolol succinate 50 mg tablet extended release 24 hr 100 mg PO QAM 30 Days Qty: 60 2RF Rx Instructions: will take with 25 mg loperamide 2 mg Capsule 2 mg PO Q4H PRN (Reason: loose stool) Qty: 20 0RF oxycodone-acetaminophen [Percocet] 5-325 mg Tablet 1 tab PO Q4H PRN (Reason: pain) Qty: 20 0RF oxycodone-acetaminophen 10-325 mg Tablet 1 tab PO Q4H PRN (Reason: pain) Qty: 20 0RF ropinirole 0.25 mg Tablet 0.5 mg PO TODAY@1999 Qty: 14 0RF Discharge Orders: Discharge Order (Routine); Ordered 05/30/22 Ordered By: Debra Rebollar Admission Data Admit Date/Time: 05/13/22 06:28 Attending Provider: Debra Rebollar Admit Provider: Bryce Mckoy Primary Care Provider: Nehemias Acosta Other Providers: [facility] ; Bryce Mckoy ; Tomas Hopper ; Weston Nunes ; Igor Quinones ; Mark Muniz ; Judah Quezada ; Simone Robin ; Conrad Camacho ; Janelle Draper ; Alirio Pendleton ; Olesya Watters ; Aaron Sharp ; Bev Davis ; Alon Weber ; Quynh Hicks ; Edgar Marion ; Roberta Phelps ; Lindsay Schmidt ; Roseann Mills ; Kevin Sosa ; Kelli Weinberg Coding Level of Care Code HOSP INP/OBS DISCH >30 MIN Diagnoses Wound infection after surgery T81.49XA Acute encephalopathy G93.40 Right ankle pain M25.571 Hematoma T14.8XXA Cellulitis of lower extremity L03.119 Atrial fibrillation with rapid ventricular response I48.91 Acute blood loss anemia D62 Ischemic cardiomyopathy I25.5 UTI (urinary tract infection) due to urinary indwelling Jeff catheter T83.511A; N39.0 Acute occlusion of aortoiliac artery I74.09 LV (left ventricular) mural thrombus I51.3 CAD (coronary artery disease) I25.10 Depression F32.A Subarachnoid hemorrhage I60.9 Diabetes E11.9 Elevated LFTs R79.89 Geographic tongue K14.1 Candidiasis of mouth and esophagus B37.81; B37.0 Urinary retention R33.9 Chronic systolic CHF (congestive heart failure) I50.22 AICD (automatic cardioverter/defibrillator) present Z95.810 Restless leg syndrome G25.81 Constipation K59.00
[2022-05-30] MEDS: ATORVASTATIN 40 MG TAB PO SCH (15:25)
[2022-05-30] MEDS: DIGOXIN 0.125 MG TAB PO SCH (15:25)
--- NOTE | 2022-06-06 08:42 | Coding Query ---
PRESENT ON ADMISSION QUERY To promote full compliance with coding requirements relating to patient care, physician participation is requested in all cases of visual training aide uncertainty. Please assist us with the question(s) below: Please place an X within the parenthesis (x). The following diagnosis(es) listed in this patient's medical record require physician assistance to determine if they were present on admission (POA) or not. Please advise for each diagnosis whether it was present on admission, not present on admission, or if it was clinically undetermined. 1. RIGHT GROIN INFECTED HEMATOMA AND SURGICAL SITE - (documentation on PN 05/13 shows monitor for signs or symptoms of infection, and PN 05/20 documents right groin infection and the 05/20 Vascular Consult documents Infected Wound, and the 05/21 Operative Report documents Infected Right Groin Wound and then PN's and Discharge Summary document Wound infection after surgery b/l groin) ( ) Present On Admission (x ) Not Present On Admission ( ) Clinically Undetermined Thank you Trudy Vaughan *Definition of the present on admission (POA)-Present on admission is defined as present at the time the order for inpatient admission occurs. Conditions that develop during an outpatient encounter prior to a written order for inpatient admission (including emergency department, observation, or outpatient surgery) are considered present on admission. MTDD
--- NOTE | 2022-06-06 08:47 | Coding Query ---
CODING QUERY To promote full compliance with coding requirements relating to patient care, provider participation is requested in all cases of desk clerks supervisor uncertainty. Please assist us with the question(s) below: Coding Question(s): Please specify below, in your opinion, regarding documentation in the record of Infected Right Groin Wound, Right groin infected hematoma and surgical site, and wound infection after surgery b/l groin: ( x ) Likely Postoperative Complication ( ) Not Postoperative Complication ( ) Due to Other: Please Specify Physician's Response(s): Thank you Trudy Vaughan Principal Diagnosis: "that condition established after study, to be chiefly responsible for occasioning the admission of the patient to the hospital for care." Co-Existing Principal Diagnosis: "when two or more diagnoses equally meet the criteria for principal diagnosis as determined by the circumstances of admission, diagnostic work up, and/or therapy provided, and the Alphabetic Index, Tabular List, or another coding guideline does not provide sequencing direction, any one of the diagnoses may be sequenced first." "When the physician has documented what appears to be a current diagnosis in the body of the record, but has not included the diagnosis in the final diagnostic statement, the physician should be asked whether the diagnosis should be added." ([facility] 2 QTR90. p3-4) SCHUYLER
--- NOTE | 2022-06-06 09:15 | Coding Query ---
PRESSURE ULCER DOCUMENTATION To promote full compliance with coding requirements relating to patient care, physician participation is requested in all cases of fixed assets accountant uncertainty. Please assist us with the question(s) below: Please specify the known or suspected type by placing an "X" within the parenthesis (x). A pressure ulcer of the RIGHT ANKLE AND HEEL - (documented on the Discharge Summary) If possible, please check the box that provides the specific stage of the pressure ulcer ( ) Stage I ( x) Stage II-right ankle ( ) Stage III ( ) Stage IV (x ) Unstageable-right heel ( ) Unable to determine Was the pressure ulcer present on admission? Please check the appropriate box for the pressure ulcer: ( ) Present on admission (x ) Not present on admission ( ) Unable to be clinically determined Thank you Trudy PAYAN
== END 2022-05-30 15:54 | DRG 264 ==
LOC: ED 02:45 → EDINP 06:28 → SUATTDRO 06:28 → 2E 07:36 → 1E 05-19 09:21 → 2S 05-22 09:06

== ENCOUNTER 2022-06-12 09:57 | Inpatient (IN) ==
--- NOTE | 2022-06-12 10:20 | Emergency Department Note ---
Impression & Plan Weakness, Constipation, Failure to thrive, Right groin wound ED Provider Note NAME: JUAN R MACHUCA AGE: 71 SEX: M : 1950 ARRIVES VIA: Walk-In INFORMANT: Patient, ED PROVIDER(S): Kolby Gibbs MD CHIEF COMPLAINT: Abdominal pain, weakness MEDICAL DECISION MAKING: Patient was seen due to concern for weakness and abdominal pain. Blood works obtained and the patient was ordered IV morphine and IV fluids. The patient did have his blood work completed along with a CT of the abdomen pelvis. Patient's initial blood work showed normal white count H&H and platelet count patient's kidney function was unremarkable. Creat of 1.08. COVID-negative. Patient CT of the abdomen pelvis showed large amount of stool but no evidence of bowel structure and the patient does have some bladder distention. Decrease in size of the left groin hematoma and near complete resolution of the right groin hematoma. Patient does have distention of the gallbladder but the patient has no right upper quadrant pain no vomiting. I did speak with the on-call hospitalist after talking with the son and the patient and the patient is too weak to go home as the patient is not getting up and out of bed or performing his ADLs. I did speak with community case manager and the patient cannot be placed at [facility] today. Given this I did speak with the on-call hospitalist Suresh Matthews PA-C and the patient was admitted to the medicine service by Dr. Kwan. Prior /Outside records reviewed: I did review the patient's transitional care visit from Dr. Acosta in June 10. The patient reportedly did have bilateral occlusions of the aortoiliac arteries with left common femoral artery endarterectomy with bovine patch and right common femoral artery angioplasty. Patient did have infected right groin wound with a ESBL Klebsiella. He did review limb in our checks note from June 03 which showed that the right great Wound VAC was changed that day plan was continue wound VAC changes Thursday and antibiotics per infectious disease. We will plan to see the office in 2 weeks time. Differential diagnosis: Appendicitis, testicular torsion, infections, diverticulitis, UTI, obstruction, mesenteric ischemia, aortic pathology, inflammatory bowel disease, renal colic, PUD, pancreatitis, biliary pathology, hernia, volvulus, constipation, as well as other pathologies. Diagnostics, as interpreted by me: ECG: None Cardiac monitoring: An order was placed for continuous cardiac monitoring. The monitor shows a rate of 92 with sinus rhythm. Patient was placed on pulse oximetry Medical decision rules: None Imaging studies: See below HPI: Patient presents due to concern for mid abdominal pain. Patient has not taken anything for symptoms at home. This been ongoing approximately 2 to 3 days. It is constant. Nonradiating. Patient has had decreased urine output as well as decreased bowel movements but the patient has also had associated weakness to where he is not getting to and from the bathroom per the son who is his primary pot puller at this time. This is in the setting of a recent ESBL inf ection to the groin after the patient did have bilateral vascular procedures completed. Patient denies any chest pains or shortness of breath no fevers or chills. The patient has not had any associated nausea vomiting. No blood in the urine or stool. PAST MEDICAL HISTORY: See Below PAST SURGICAL HISTORY: See Below SOCIAL HISTORY: See Below HOME MEDICATIONS: See Below ALLERGIES: See Below VITALS: See Below PHYSICAL EXAMINATION: GENERAL: NAD, wearing a mask, non-toxic. EYE EXAM: Normal conjunctiva. PERRL, no anisocoria and EOM's grossly intact w/o pain. NECK: Supple, no nuchal rigidity, no adenopathy, non-tender. No signs of meningismus. FROM of the neck with good chin to chest and neck extension. No stridor. LUNGS: Clear to auscultation. Normal chest wall mechanics. HEART: NSR, no MRG. ABDOMEN: Abdomen soft, non-tender, normo-active bowel sounds, no masses, no rebound or guarding. BACK: No CVA TTP. SKIN: No rashes and no bruising. UPPER EXTREMITIES: Upper extremities are grossly normal. LOWER EXTREMITIES: Left groin well-healed with mild residual hematoma but no fluctuance or drainage, right groin with wound VAC in place, bilateral lower extremities neurovascular intact sensate and motor intact to tibialis DP and SP nerve bilaterally NEURO EXAM: A&O x3, cranial nerves II-XII grossly intact, normal speech, moves all 4 extremities. Past Med/Surg History Medical History (Updated 06/13/22 @ 09:02 by Kolby Gibbs MD) Acute CVA (cerebrovascular accident) Acute occlusion of aortoiliac artery STACY (acute kidney injury) Anemia Atrial fibrillation with rapid ventricular response Atrial fibrillation with rapid ventricular response CAD (coronary artery disease) Chronic systolic CHF (congestive heart failure) Depression Diabetes Elevated troponin Gout Hx of subdural hematoma Hyperlipidemia Implantable cardioverter-defibrillator (ICD) discharge Ischemic cardiomyopathy Hx OK S/P PCI and CABG LV (left ventricular) mural thrombus Paroxysmal atrial fibrillation Restless leg syndrome Subarachnoid hemorrhage Urinary retention Surgical History AICD (automatic cardioverter/defibrillator) present H/O heart bypass surgery Family History Brother Diabetes Mother Hypertension Father Stroke Denies family history of Ovarian cancer Prostate cancer Myocardial infarction Breast cancer Colorectal cancer Social History Smoking Status: Never smoker Second Hand Exposure: No; Hx Alcohol Use: No Hx Substance Use: No Preferred Language: Argentine 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: Effective Back Padder Required: No Beliefs That Will Affect Care: None Current Living Situation: Family Current Living Situation Comment: lives with his and their son but came to use [facility] current occupational status: retired Feels Safe at Home: Yes Safety Concerns: Feels Safe At This Time Physical Activity Frequency: 1-2 Times per Week Seatbelt Use: always Assistive Devices: Glasses and Walker Allergies Allergies Allergy/AdvReac Type Severity Reaction Status Date / Time Pork/Porcine Containing AdvReac Unknown Unknown Verified 06/12/22 20:21 Products Home Meds Home Medications Medication Instructions Recorded Confirmed atorvastatin 80 mg tablet 80 mg PO QPM 01/01/22 06/12/22 spironolactone 25 mg tablet 25 mg PO QPM 01/01/22 06/12/22 allopurinol 100 mg tablet 100 mg PO DAILY 03/21/22 06/12/22 ropinirole 0.25 mg tablet 0.5 mg PO HS 04/30/22 06/12/22 Previous Rx's Medication Instructions Recorded metformin 500 mg tablet 500 mg PO BID #180 tabs 12/13/21 apixaban 5 mg tablet 5 mg PO Q12H #60 tabs 05/09/22 tamsulosin 0.4 mg capsule 0.4 mg PO HS #20 caps 05/09/22 acetaminophen 325 mg tablet 650 mg PO Q8H #60 tabs 05/30/22 digoxin 125 mcg (0.125 mg) tablet 0.125 mg PO DAILY@1600 #30 tabs 05/30/22 (Digitek) escitalopram oxalate 10 mg tablet 10 mg PO QAM #30 tabs 05/30/22 (Lexapro) gabapentin 100 mg capsule 100 mg PO QAM #30 caps 05/30/22 gabapentin 300 mg capsule 300 mg PO PM #30 caps 05/30/22 hydrocodone 7.5 mg-acetaminophen 1 tab PO Q6H PRN pain #10 tabs 05/30/22 325 mg tablet metoprolol succinate 100 mg 100 mg PO DAILY #30 tabs 05/30/22 tablet,extended release 24 hr metoprolol succinate 25 mg 25 mg PO HS #30 tabs 05/30/22 tablet,extended release 24 hr mirtazapine 7.5 mg tablet 7.5 mg PO HS #30 tabs 05/30/22 btuxjmeu-ktf-fcryo acid 0.4 1 tab PO QAM #30 tabs 05/30/22 mg-lycopene 300 mcg-lutein 250 mcg tablet (Cerovite Senior) polyethylene glycol 3350 17 gram 17 g PO DAILY #30 ea 05/30/22 oral powder packet (Miralax) sennosides 8.6 mg-docusate sodium 1 tab PO BID #60 tabs 05/30/22 50 mg tablet (Senokot-S) Results & Data (ED) Vital Signs Vital Signs - 24 hr 06/12/22 09:58 06/12/22 10:57 06/12/22 10:57 Temperature 36.5 C Temperature Source Temporal Artery Scan Pulse Rate 97 H Pulse Rate [Apical] 110 H Respiratory Rate 16 18 Respiratory Effort / Characteristics Non-Labored Spontaneous Respiratory Depth Normal Normal Blood Pressure 116/83 Blood Pressure [Right Arm] 130/81 Blood Pressure Mean 94 Blood Pressure Mean [Right Arm] 97 Blood Pressure Position Sitting Blood Pressure Position [Right Arm] Pulse Oximetry 95 97 97 Oxygen Delivery Method Room Air Room Air Room Air Sepsis Recent Fever Within 48 Hours No Sepsis New/Unexplained Change in Mental Status No Sepsis Action Taken by Nursing No Action Required 06/12/22 12:40 06/12/22 13:06 06/12/22 14:11 Temperature Temperature Source Pulse Rate Pulse Rate [Apical] 104 H 96 H 99 H Respiratory Rate 18 18 18 Respiratory Effort / Characteristics Non-Labored Spontaneous Non-Labored Spontaneous Non-Labored Spontaneous Respiratory Depth Normal Normal Normal Blood Pressure Blood Pressure [Right Arm] 95/56 L 118/49 L 96/58 L Blood Pressure Mean Blood Pressure Mean [Right Arm] 69 72 70 Blood Pressure Position Blood Pressure Position [Right Arm] Lying Pulse Oximetry 98 98 95 Oxygen Delivery Method Room Air Room Air Room Air Sepsis Recent Fever Within 48 Hours Sepsis New/Unexplained Change in Mental Status Sepsis Action Taken by [facility] Medications Current Medication List: was personally reviewed by me Laboratory Data Attestation: I reviewed the patient's lab results. 06/12/22 10:50 06/12/22 10:50 Lab Results 06/12/22 06/12/22 06/12/22 Range/Units 10:50 10:50 10:50 WBC 7.92 (4.8-10.8) K/ul RBC 5.79 (4.70-6.10) M/uL Hgb 16.8 (14.0-18.0) g/dl Hct 51.5 (42.0-52.0) % MCV 88.9 (80.0-100.0) fL MCH 29.0 (25.0-34.0) pg MCHC 32.6 (32.0-36.0) g/dL RDW Std Deviation 56.2 H (36.4-46.3) fL RDW Coeff of [place] 18.2 H (11.5-14.5) % Plt Count 245 (130-400) K/uL MPV 9.1 L (9.4-12.4) fL Immature Gran % (Auto) 0.3 % Neut % (Auto) 70.3 % Lymph % (Auto) 21.8 % [place] % (Auto) 5.8 % Eos % (Auto) 0.9 % Baso % (Auto) 0.9 % Neut # (Auto) 5.57 (1.40-6.50) K/uL Lymph # (Auto) 1.73 (1.2-3.4) K/uL [place] # (Auto) 0.46 (0.11-0.59) K/uL Eos # (Auto) 0.07 (0-0.50) K/uL Baso # (Auto) 0.07 (0-0.2) K/uL Immature Gran # (Auto) 0.02 (0.01-0.20) K/uL Sodium 139 (136-145) mmol/L Potassium 3.8 (3.5-5.1) mmol/L Chloride 103 (98-107) mmol/L Carbon Dioxide 27 (21-32) mmol/L Anion Gap 9 (3-11) BUN 30 H (6-23) mg/dl Creatinine 1.08 (0.6-1.4) mg/dl Est Cr Clr Drug Dosing 70.8 ml/min Est GFR ( Amer) 78.5 ml/min Est GFR (Non-Af Amer) 67.7 ml/min BUN/Creatinine Ratio 27.8 H (10-20) Glucose 114 H (70-99(Fasting)) mg/dl Calcium 9.1 (8.5-10.1) mg/dl Total Bilirubin 1.0 (0.2-1.0) mg/dl AST 19 (13-39) U/L ALT 10 (7-52) U/L Alkaline Phosphatase 90 (34-104) U/L Total Protein 7.2 (6.0-8.3) gm/dl Albumin 3.5 (3.4-5.0) gm/dl Globulin 3.7 (2.5-4.0) gm/dl Albumin/Globulin Ratio 0.9 (0.9-2) Lipase 9 L (11-82) U/L SARS-CoV-2, RNA, NAAT NEGATIVE (NEGATIVE) Administered Medications Apixaban (Apixaban 5 Mg Tablet) 5 mg PO Q12H [facility] Stop: 07/12/22 15:59 Last Admin: 06/13/22 04:56 Dose: 5 mg Documented By: Admin: 06/12/22 18:45 Dose: 5 mg Documented By: SILVIA Atorvastatin Calcium (Atorvastatin 40 Mg Tab) 80 mg PO DAILY@1200 [facility] Stop: 07/12/22 15:44 Last Admin: 06/12/22 18:43 Dose: 80 mg Documented By: SILVIA Digoxin (Digoxin 0.125 Mg Tab) 0.125 mg PO DAILY@1600 [facility] Stop: 07/12/22 15:59 Last Admin: 06/12/22 18:45 Dose: 0.125 mg Documented By: SILVIA Gabapentin (Gabapentin 300 Mg Cap) 300 mg PO PM [facility] Stop: 07/12/22 20:59 Last Admin: 06/12/22 23:40 Dose: Not Given Documented By: ROBERTA Insulin Aspart (Insulin Aspart Per Unit) 0 units SC ACHS [facility] Stop: 07/12/22 16:29 Last Admin: 06/12/22 21:22 Dose: Not Given Documented By: Admin: 06/12/22 18:46 Dose: Not Given Documented By: SILVIA Insulin Glargine (Lantus Per Unit Charge) 5 units SQ BID [facility] Stop: 07/12/22 20:59 Last Admin: 06/12/22 22:57 Dose: Not Given Documented By: ROBERTA Metoprolol Succinate (Metoprolol Succ 25mg Ext Rel Tab) 25 mg PO [facility] Stop: 07/12/22 20:59 Last Admin: 06/12/22 23:40 Dose: Not Given Documented By: ROBERTA Morphine Sulfate (Morphine Sulfate 2 Mg/Ml Carp) 2 mg IV Q6H PRN PRN Reason: Pain (breakthrough pain) Stop: 06/26/22 18:18 Last Admin: 06/13/22 01:02 Dose: 2 mg Documented By: Admin: 06/12/22 18:39 Dose: 2 mg Documented By: SILVIA Polyethylene Glycol (Polyethylene (Miralax) 17 Gm Pack) 17 gm PO BID [facility] Stop: 07/12/22 20:59 Last Admin: 06/12/22 22:25 Dose: Not Given Documented By: ROBERTA Senna/Docusate Sodium (Docusate Sodium/Senna 50/8.6mg Tab) 1 tab PO BID [facility] Stop: 07/12/22 20:59 Last Admin: 06/12/22 22:24 Dose: Not Given Documented By: ROBERTA Tamsulosin HCl (Tamsulosin Hcl 0.4 Mg Cap) 0.4 mg PO [facility] Stop: 07/12/22 20:59 Last Admin: 06/12/22 23:40 Dose: Not Given Documented By: ROBERTA Discontinued Medications Sodium Chloride (Nss) 500 mls @ 999 mls/hr IV .Q31M ST[facility] Stop: 06/12/22 11:08 Last Infusion: 06/12/22 11:41 Dose: 0 mls/hr Documented By: Admin: 06/12/22 11:09 Dose: 999 mls/hr Documented By: CHELSY Ioversol (Optiray 350 100ml) 86 ml IV ONCE ONE Stop: 06/12/22 12:18 Last Admin: 06/12/22 12:20 Dose: 86 ml Documented By: EVA Morphine Sulfate (Morphine Sulfate 4 Mg/Ml 1 Ml Carp\Vial) 4 mg IV NOW STA Stop: 06/12/22 10:39 Last Admin: 06/12/22 11:08 Dose: 4 mg Documented By: CHELSY Imaging Data Radiologist's Impression: Abdomen/Pelvis CT 06/12/22 10:38 CT OF THE ABDOMEN AND PELVIS WITH CONTRAST CLINICAL HISTORY: periumbilical and lower ab pain; h/o aort/iliac COMPARISON STUDY: CT of the abdomen and pelvis May 04, 2022. CT of the femurs May 18, 2022. TECHNIQUE: Following IV administration of 86 mL of Optiray, axial images of the abdomen and pelvis were obtained from the lung bases to the proximal femurs. Images were reviewed in the axial, sagittal, and coronal planes. IV contrast was administered without complication. Automated exposure control was utilized for the study. A dose lowering technique was utilized adhering to the principles of ALARA. CT DOSE: 650.62 mGy.cm FINDINGS: Pacer leads are partially imaged. No pneumatosis, free air or portal venous gas is present. Liver, spleen, adrenal glands are unremarkable. Pancreatic glandular atrophy is unchanged. There is no peripancreatic infiltration. There is no biliary or pancreatic ductal dilatation. The gallbladder is moderately distended. There is no adjacent infiltration. Mild left hydroureteronephrosis may be due to bladder distention. Multifocal scarring of the left kidney is noted. There are no ureteral calculi. Cyst within the upper pole of the left kidney is present. Large amount of stool within the colon and rectum is noted. There is no evidence for a bowel obstruction. 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 Moderate aortoiliac atherosclerotic plaque is noted. Resolving left groin hematoma is noted. This has decreased in size and attenuation since prior CT. Right groin hematoma has essentially resolved. Occlusion of the bilateral proximal superficial femoral arteries was shown on CT of May 18, 2022. Mildly enlarged right internal and external iliac lymph nodes are probably reactive. Prominent left inguinal lymph nodes are also likely reactive. There are no acute fractures. IMPRESSION: 1. Large amount of stool within the rectum and colon. No evidence for a bowel obstruction. 2. Distended bladder which likely accounts for mild left hydroureteronephrosis. 3. Decrease in size and attenuation of the left groin hematoma. Near complete resolution of the right groin hematoma. Right groin wound. Redemonstration of occlusion of the bilateral superficial femoral arteries. 4. Moderate gallbladder distention without adjacent stranding. If right upper quadrant pain, ultrasound is recommended to exclude acute cholecystitis. 5. Mildly enlarged bilateral inguinal and right external iliac chain nodes which are likely reactive. ACT 112: Negative or not required by law. Electronically signed by: Dami Gongora M.D. 06/12/2022 12:46 PM Discharge Plan Visit Data Chief Complaint: Abdominal Pain Stated Complaint: ABDOMINAL PAIN, WOUND VAC ISSUES ED Provider: Kolby Gibbs Discharge Problem: Weakness, Constipation, Failure to thrive, Right groin wound Patient Disposition: Admitted As Inpatient Discharge Instructions Interventions: ED Discharge Assessment Last Done: 06/12/22 15:23
[2022-06-12] MEDS ORDERED: MoRPHine SULFATE 4 MG/ML 1 ML CARP\\VIAL IV STA (10:38)
[2022-06-12] MEDS ORDERED: SODIUM CHLORIDE 0.9% 500 ML IV STA (10:38)
[2022-06-12 11:34] LABS: Basophils # (auto) 0.07 K/uL (0-0.2); Basophils % (auto) 0.9 %; Eosinophils # (auto) 0.07 K/uL (0-0.50); Eosinophils % (auto) 0.9 %; Hematocrit (blood only) 51.5 % (42.0-52.0); Hemoglobin 16.8 g/dl (14.0-18.0); Immature Granulocytes # (auto) 0.02 K/uL (0.01-0.20); Immature Granulocytes % (auto) 0.3 %; Lymphocytes # (auto) 1.73 K/uL (1.2-3.4); Lymphocytes % (auto) 21.8 %; Mean Corpuscular Hgb Conc 32.6 g/dL (32.0-36.0); Mean Corpuscular Volume 88.9 fL (80.0-100.0); Mean Platelet Volume 9.1 fL (9.4-12.4); Monocytes # (auto) 0.46 K/uL (0.11-0.59); Monocytes % (auto) 5.8 %; Neutrophils # (auto) 5.57 K/uL (1.40-6.50); Neutrophils % (auto) 70.3 %; Platelet Count 245 K/uL (130-400); RDW Coefficient of Variation 18.2 % (11.5-14.5); RDW Standard Deviation 56.2 fL (36.4-46.3); Red Blood Count 5.79 M/uL (4.70-6.10); White Blood Count 7.92 K/ul (4.8-10.8)
[2022-06-12 11:36] LABS: Albumin Globulin Ratio 0.9 (0.9-2); Albumin Level 3.5 gm/dl (3.4-5.0); BUN Creatinine Ratio 27.8 (10-20); Calcium 9.1 mg/dl (8.5-10.1); Creatinine Clr Calc Pharmacy 70.8 ml/min; Est GFR (African American) 78.5 ml/min; Est GFR (Non-African American) 67.7 ml/min; Globulin 3.7 gm/dl (2.5-4.0); Potassium 3.8 mmol/L (3.5-5.1); Total Protein 7.2 gm/dl (6.0-8.3)
[2022-06-12] MEDS ORDERED: OPTIRAY 350 100ml IV ONE (12:17)
--- NOTE | 2022-06-12 12:47 | CT Scan Report ---
CT OF THE ABDOMEN AND PELVIS WITH CONTRAST CLINICAL HISTORY: periumbilical and lower ab pain; h/o aort/iliac COMPARISON STUDY: CT of the abdomen and pelvis May 04, 2022. CT of the femurs May 18, 2022. TECHNIQUE: Following IV administration of 86 mL of Optiray, axial images of the abdomen and pelvis we re obtained from the lung bases to the proximal femurs. Images were reviewed in the axial, sagittal, and coronal planes. IV contrast was administered without complication. Automated exposure control wa s utilized for the study. A dose lowering technique was utilized adhering to the principles of ALARA . CT DOSE: 650.62 mGy.cm FINDINGS: Pacer leads are partially imaged. No pneumatosis, free air or portal venous gas is present. Liver, spleen, adrenal glands are unremarkable. Pancreatic glandular atrophy is unchanged. There is no peripancreatic infiltration. There is no biliary or pancreatic ductal dilatation. The gallbladder is moderately distended. There is no adjacent infiltration. Mild left hydroureteronephrosis may be du e to bladder distention. Multifocal scarring of the left kidney is noted. There are no ureteral calcu li. Cyst within the upper pole of the left kidney is present. Large amount of stool within the colon and rectum is noted. There is no evidence for a bowel obstruction. 1.5 cm peripherally calcified jonathan ac axis aneurysm is noted. Moderate aortoiliac atherosclerotic plaque is noted. Resolving left groin hematoma is noted. This has decreased in size and attenuation since prior CT. Right groin hematoma sandoval s essentially resolved. Occlusion of the bilateral proximal superficial femoral arteries was shown o n CT of May 18, 2022. Mildly enlarged right internal and external iliac lymph nodes are probably r eactive. Prominent left inguinal lymph nodes are also likely reactive. There are no acute fractures. IMPRESSION: 1. Large amount of stool within the rectum and colon. No evidence for a bowel obstruction. 2. Distended bladder which likely accounts for mild left hydroureteronephrosis. 3. Decrease in size and attenuation of the left groin hematoma. Near complete resolution of the right groin hematoma. Right groin wound. Redemonstration of occlusion of the bilateral superficial femoral arteries. 4. Moderate gallbladder distention without adjacent stranding. If right upper quadrant pain, ultrasou nd is recommended to exclude acute cholecystitis. 5. Mildly enlarged bilateral inguinal and right external iliac chain nodes which are likely reactive. ACT 112: Negative or not required by law. Electronically signed by: Dami Gongora M.D. 06/12/2022 12:46 PM
--- NOTE | 2022-06-12 14:50 | History & Physical Report ---
Date of Service June 12, 2022 Assessment & Plan (1) Failure to thrive: Plan: -Admit to med/surge -Patient is currently afebrile, hemodynamically stable, and stable on RA -Patient was discharged from [facility] to his Son's home 3 days ago but unable to perform ADL's or even get out of bed -Likely multifactorial including polypharmacy and deconditioning from multiple hospital admissions -Patient and son think he needs more inpatient rehab to build his strength -Patient's son has been holding the patient's Remeron and requip and has noticed increased alertness over the past week -PT/OT consults placed -Fall precautions ordered -Home anticoagulation and SCDs for DVT PPX -AM CBC, CMP, Mag, PT/INR, and Dig level (2) Constipation: Plan: -Patient has been dealing with constipation since being on narcotics for chronic pain from his wounds -Patient reports he had a small bowel movement prior to my exam -CT negative for obstruction -Continue Seniokot S, miralax -Can start enemas if needed (3) STACY (acute kidney injury): Plan: -Patient with mild STACY today, cr at 1.1, baseline is around 0.8, likely due to dehydration -S/P 500 mL NSS bolus in the ED -Hold spironolactone tonight and follow am renal function (4) Urinary retention: Plan: -Noted by ED staff -Patient was later able to give a urine sample -UA looks dirty but patient has been without dysuria and without signs of system infection -Will hold abx for now and follow urine cultures -Continue flomax, prn bladder scan and straight cath orders placed (5) Chronic systolic CHF (congestive heart failure): Plan: -Severe LVEF of < 15% -Appears euvolemic on exam -Patient with previous AICD placement -Will hold spironolactone tonight with his mild STACY, restart tomorrow if renal function is stable -Avoid additional IV fluids unless absolutely necessary to avoid volume overload (6) Paroxysmal atrial fibrillation: Plan: -Stable -Continue eliquis and metoprolol (7) Hyperlipidemia: Plan: -Conitnue statin (8) Gout: Plan: -Continue allopurinol (9) Depression: Plan: -Conitnue lexapro (10) Right groin wound: Plan: -Patient with known BL groin hematomas and wounds -Previously had wound Vac on the right groin wound but taken off by wound nurse earlier today -Patient and son confirm that wounds are improving, confirmed on CT today -Wound care nurse consulted, continue to follow recs (11) Wound of right foot: Plan: -Patient with chronic dry wounds on the right heel and ankle, no actively draining -Xrays today show stable appearance and negative for OM -Heel precautions ordered and wound nurse consutl placed Plan The patient was discussed with Dr. 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 Per chart review, the patient has had multiple recent admissions to [facility] and [facility]. He was first admitted to [facility] from 04/30/22-05/08/22 for acute occlusion of the aortoiliac artery. He initially presented to the [facility] ED with left thigh/LE pain and was found to have an apical thrombus in the left femoral iliac artery thought to have been caused by afib. He underwent Bilateral Iliac and Femoral Embolectomy, Left Common Femoral Artery Endarterectomy with Bovine Patch, left Common Artery Patch Angioplasty - performed by Dr Sharp [05/02]. He experienced a large hematoma postoperatively with acute blood loss anemia with a Hgb drop from 14 to 8.9. He was treated with IV iron and discharged on ferrous gluconate. He experienced an STACY thought to be ATN due to hypotension and possible emboli from Afib RVR during his admission. The patient was continued on dual antiplatelet therapy and was also on heparin. Ct of the abd/pelvs was negative for hydronephrosis but he did experience urinary retention and require coude cath placement, he was also started on flomax. His cr retuned to baseline and his catheter was able to be removed prior to discharge. He was again admitted to [facility] from 05/13-05/30/22 due to afib RVR with ICD firing, infected right groin hematoma, and BL thigh hematomas. His wound culture grew EBL Klebsiella, blood cultures remained negative. He was started on ertapenem, zosyn/dapto, and discharged on levaquin. ID was consulted and recommended to continue abx for a total of 14 days (last day on 06/03) and was discharged with a wound vac on the right hematoma I&D site. He was recently discharged home from [facility] on In the ED today the patient was found to be afebrile, hemodynamically stable, and stable on RA. Labs were remarkable for a WBC WNL, stable Hgb at 16.8, stable platelets, cr of 1.08 (baseline appears to be 0.8), stable electrolytes, LFTs WNL, and covid negative. CT of the abd/pelvis with contrast was read as "1. Large amount of stool within the rectum and colon. No evidence for a bowel obstruction. 2. Distended bladder which likely accounts for mild left hydroureteronephrosis. 3. Decrease in size and attenuation of the left groin hematoma. Near complete resolution of the right groin hematoma. Right groin wound. Remonstration of occlusion of the bilateral superficial femoral arteries. 4. Moderate gallbladder distention without adjacent stranding. If right upper quadrant pain, ultrasound is recommended to exclude acute cholecystitis. 5. Mildly enlarged bilateral inguinal and right external iliac chain nodes which are likely reactive.". Prior to admission the patient was given a 500 mL NSS bolus and 4 mg IV morphine. At the time of the exam the patient was resting comfortably in bed in no acute distress. I obtained a history from the patient and also his SON/POA on the phone. They state that since being discharged from [facility] 3 days ago the patient has been weak and unable to complete his ADLs at home. The patient does live with his Son. His son states that the patient is unable to get out of bed due to his known chronic wounds on the right foot and his BL thigh wounds. He has not been urinating consistently and they are unsure of how to obtain consi stent care for his chronic wounds at this time. The patient denies recent fevers, chills, chest pain, SOB, vomiting, dysuria, hematuria, and recent falls. He has had some lower abdominal discomfort, however, this improved after he had a bowel movement prior to my arrival in his room. His son thinks that the patient may be taking too many narcotics or taking them too frequently causing his constipation; his son is a Pharmacist. I explained that we can re-admit him and have him re-evaluated by PT/OT for rehab placement to continue to build his strength, they are both in agreement. When asked about urinary retention, the patient states that when someone is able to help him he is able to urinate, if has to get up himself he has too much difficulty. His son states that he was concerned the patient was being over medicated with sedating medications and had recently held his remeron and requip as the patient had not been agitated and the requip did not seem to be helping his restless legs. His son states that since the patient has been off Remeron and Requip he has been more alert and awake during the day. The patient is a full code and his son would make decisions for him if he could not make decisions himself. I was able to confirm with the patient's nurse that they patient was evaluated by our wound care nurse prior to admission. Since the patient had his wound vac off his right thigh wound for greater than 2 hours she placed a bandage on it for now and will re-evaluate him tomorrow. Please refer to Dr. Kwan's attestation for any changes to the treatment plan Allergies Allergy/AdvReac Type Severity Reaction Status Date / Time Pork/Porcine Containing AdvReac Unknown Unknown Verified 06/12/22 20:21 Products Home Medications Medication Instructions Recorded Confirmed Type metformin 500 mg tablet 500 mg PO BID #180 tabs 12/13/21 06/12/22 Rx atorvastatin 80 mg tablet 80 mg PO QPM 01/01/22 06/12/22 History spironolactone 25 mg tablet 25 mg PO QPM 01/01/22 06/12/22 History allopurinol 100 mg tablet 100 mg PO DAILY 03/21/22 06/12/22 History ropinirole 0.25 mg tablet 0.5 mg PO HS 04/30/22 06/12/22 History apixaban 5 mg tablet 5 mg PO Q12H #60 tabs 05/09/22 06/12/22 Rx tamsulosin 0.4 mg capsule 0.4 mg PO HS #20 caps 05/09/22 06/12/22 Rx acetaminophen 325 mg tablet 650 mg PO Q8H #60 tabs 05/30/22 06/12/22 Rx digoxin 125 mcg (0.125 mg) tablet 0.125 mg PO DAILY@1600 #30 tabs 05/30/22 06/12/22 Rx (Digitek) escitalopram oxalate 10 mg tablet 10 mg PO QAM #30 tabs 05/30/22 06/12/22 Rx (Lexapro) gabapentin 100 mg capsule 100 mg PO QAM #30 caps 05/30/22 06/12/22 Rx gabapentin 300 mg capsule 300 mg PO PM #30 caps 05/30/22 06/12/22 Rx hydrocodone 7.5 mg-acetaminophen 1 tab PO Q6H PRN pain #10 tabs 05/30/22 06/12/22 Rx 325 mg tablet metoprolol succinate 100 mg 100 mg PO DAILY #30 tabs 05/30/22 06/12/22 Rx tablet,extended release 24 hr metoprolol succinate 25 mg 25 mg PO HS #30 tabs 05/30/22 06/12/22 Rx tablet,extended release 24 hr mirtazapine 7.5 mg tablet 7.5 mg PO HS #30 tabs 05/30/22 06/12/22 Rx tkekfkkd-mya-rarqm acid 0.4 1 tab PO QAM #30 tabs 05/30/22 06/12/22 Rx mg-lycopene 300 mcg-lutein 250 mcg tablet (Cerovite Senior) polyethylene glycol 3350 17 gram 17 g PO DAILY #30 ea 05/30/22 06/12/22 Rx oral powder packet (Miralax) sennosides 8.6 mg-docusate sodium 1 tab PO BID #60 tabs 05/30/22 06/12/22 Rx 50 mg tablet (Senokot-S) Past Med/Surg History Medical History Acute CVA (cerebrovascular accident) Acute occlusion of aortoiliac artery STACY (acute kidney injury) Anemia Atrial fibrillation with rapid ventricular response Atrial fibrillation with rapid ventricular response CAD (coronary artery disease) Chronic systolic CHF (congestive heart failure) Depression Diabetes Elevated troponin Gout Hx of subdural hematoma Hyperlipidemia Implantable cardioverter-defibrillator (ICD) discharge Ischemic cardiomyopathy Hx GA S/P PCI and CABG LV (left ventricular) mural thrombus Paroxysmal atrial fibrillation Restless leg syndrome Subarachnoid hemorrhage Urinary retention Surgical History AICD (automatic cardioverter/defibrillator) present H/O heart bypass surgery Family History Brother Diabetes Mother Hypertension Father Stroke Denies family history of Ovarian cancer Prostate cancer Myocardial infarction Breast cancer Colorectal cancer Social History Smoking Status: Never smoker Second Hand Exposure: No; Hx Alcohol Use: No Hx Substance Use: No Preferred Language: Russian 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: Effective Liner Man Required: No Beliefs That Will Affect Care: None Current Living Situation: Family Current Living Situation Comment: lives with his and their son but came to use from [facility] current occupational status: retired Feels Safe at Home: Yes Safety Concerns: Feels Safe At This Time Physical Activity Frequency: 1-2 Times per Week Seatbelt Use: always Assistive Devices: Walker Review of Systems Review of Systems: Denies current fever, chills, headache, changes in vision, hearing, taste, and smell, chest pain, SOB, cough, abdominal pain, nausea, vomiting, diarrhea, hematemesis, melena, dysuria, hematuria, and recent falls. All systems have been reviewed and are otherwise negative. Physical Exam Physical Exam: Physical Exam: General: In no acute distress, stated age, chronically ill appearing but non- toxic appearing HEENT: Normocephalic, atraumatic, no scleral icterus, pupils around round, symmetrical, and reactive to light, dry mucus membranes, trachea midline, no thy romegaly Chest/Pulm: No respiratory distress, symmetrical chest expansion, clear breath sounds throughout Cardiac: ICD in place in the left upper chest without sings of infection, RRR, no murmurs noted Abdomen: Negative for ascites and bruising, normoactive bowel sounds, soft, non-tender to palpation throughout Musculoskeletal: Patient with dry wounds noted on the right heel/ankle without signs of drainage or circumferential erythema, patient with right thigh wound recently bandaged by wound nurse without signs of drainage, left chronic wound and lymphadenopathy in the left thigh without signs of drainage, patient with baseline right sided weakness from previous strokes Extremities: Radial, dorsalis pedis, and posterior tibial pulses are intact and symmetrical, no edema noted in the BL LE's Skin: as described above Neuro: Alert and oriented to person, place, month, year, and president, no focal defects, CN II-XII tested and intact, patient with with baseline right- sided weakness Psych: No acute distress, calm and cooperative during the exam Results & Data Results & Data ([facility]) Vital Signs (Past 12 Hours) Vital Signs Temp Pulse Pulse Resp BP BP Pulse Ox 06/12/22 14:11 99 H 18 96/58 L 95 06/12/22 13:06 96 H 18 118/49 L 98 06/12/22 12:40 104 H 18 95/56 L 98 06/12/22 10:57 97 06/12/22 10:57 110 H 18 130/81 97 06/12/22 09:58 36.5 C 97 H 16 116/83 95 O2 Del Method 06/12/22 14:11 Room Air 06/12/22 13:06 Room Air 06/12/22 12:40 Room Air 06/12/22 10:57 Room Air 06/12/22 10:57 Room Air 06/12/22 09:58 Room Air Laboratory Results Abnormal lab results 06/12/22 06/12/22 06/12/22 Range/Units 10:50 10:50 15:50 RDW Std Deviation 56.2 H (36.4-46.3) fL RDW Coeff of Moriah 18.2 H (11.5-14.5) % MPV 9.1 L (9.4-12.4) fL BUN 30 H (6-23) mg/dl BUN/Creatinine Ratio 27.8 H (10-20) Glucose 114 H (70-99(Fasting)) mg/dl POC Glucose (70-99) mg/dl Lipase 9 L (11-82) U/L Urine Appearance Cloudy A (Clear) Urine Blood 2+ H (Negative) Urine Bilirubin 1+ H (Negative) Ur Leukocyte Esterase Trace H (Negative) Urine WBC (Auto) 10-30 H (0-5) /hpf Urine RBC (Auto) >30 H (0-4) /hpf U Hyaline Cast (Auto) 10-30 H (0-5) /lpf U Epithel Cells (Auto) >30 H (0-5) /lpf Granular Casts 1-5 H (0) /lpf Urine Mucus Present A (None Prsent) 06/12/22 Range/Units 17:32 RDW Std Deviation (36.4-46.3) fL RDW Coeff of Moriah (11.5-14.5) % MPV (9.4-12.4) fL BUN (6-23) mg/dl BUN/Creatinine Ratio (10-20) Glucose (70-99(Fasting)) mg/dl POC Glucose 115 H (70-99) mg/dl Lipase (11-82) U/L Urine Appearance (Clear) Urine Blood (Negative) Urine Bilirubin (Negative) Ur Leukocyte Esterase (Negative) Urine WBC (Auto) (0-5) /hpf Urine RBC (Auto) (0-4) /hpf U Hyaline Cast (Auto) (0-5) /lpf U Epithel Cells (Auto) (0-5) /lpf Granular Casts (0) /lpf Urine Mucus (None Prsent) Diagnostic Findings Abdomen/Pelvis CT 06/12/22 10:38 CT OF THE ABDOMEN AND PELVIS WITH CONTRAST CLINICAL HISTORY: periumbilical and lower ab pain; h/o aort/iliac COMPARISON STUDY: CT of the abdomen and pelvis May 04, 2022. CT of the femurs May 18, 2022. TECHNIQUE: Following IV administration of 86 mL of Optiray, axial images of the abdomen and pelvis were obtained from the lung bases to the proximal femurs. Images were reviewed in the axial, sagittal, and coronal planes. IV contrast was administered without complication. Automated exposure control was utilized for the study. A dose lowering technique was utilized adhering to the principles of ALARA. CT DOSE: 650.62 mGy.cm FINDINGS: Pacer leads are partially imaged. No pneumatosis, free air or portal venous gas is present. Liver, spleen, adrenal glands are unremarkable. Pancreatic glandular atrophy is unchanged. There is no peripancreatic infiltration. There is no biliary or pancreatic ductal dilatation. The gallbladder is moderately distended. There is no adjacent infiltration. Mild left hydroureteronephrosis may be due to bladder distention. Multifocal scarring of the left kidney is noted. There are no ureteral calculi. Cyst within the upper pole of the left kidney is present. Large amount of stool within the colon and rectum is noted. There is no evidence for a bowel obstruction. 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 Moderate aortoiliac atherosclerotic plaque is noted. Resolving left groin hematoma is noted. This has decreased in size and attenuation since prior CT. Right groin hematoma has essentially resolved. Occlusion of the bilateral proximal superficial femoral arteries was shown on CT of May 18, 2022. Mildly enlarged right internal and external iliac lymph nodes are probably reactive. Prominent left inguinal lymph nodes are also likely reactive. There are no acute fractures. IMPRESSION: 1. Large amount of stool within the rectum and colon. No evidence for a bowel obstruction. 2. Distended bladder which likely accounts for mild left hydroureteronephrosis. 3. Decrease in size and attenuation of the left groin hematoma. Near complete resolution of the right groin hematoma. Right groin wound. Redemonstration of occlusion of the bilateral superficial femoral arteries. 4. Moderate gallbladder distention without adjacent stranding. If right upper quadrant pain, ultrasound is recommended to exclude acute cholecystitis. 5. Mildly enlarged bilateral inguinal and right external iliac chain nodes which are likely reactive. ACT 112: Negative or not required by law. Electronically signed by: Dami Gongora M.D. 06/12/2022 12:46 PM Ankle X-Ray 06/12/22 15:18 XR ankle RT 2V, XR foot RT 2V HISTORY: 71 years-old Male monitor for OM of the right foot/ankle chronic pain of the right foot and ankle COMPARISON: May 23, 2022 TECHNIQUE: 3 views the right foot with 3 views of the right ankle FINDINGS: ANKLE: Mild osteoarthritis redemonstrated. No acute fracture, dislocation or osteochondral defect. Degenerative spurring of the calcaneus. FOOT: Predominantly mild multifocal osteoarthritis. No acute fracture, dislocation or osseous erosion. Mild diffuse soft tissue swelling. IMPRESSION: 1. Stable exam from the May 23, 2022 studies. 2. No acute osseous abnormality. ACT 112: Negative or not required by law. The above report was generated using voice recognition software. It may contain grammatical, syntax or spelling errors. Electronically signed by: Bertram Fuentes M.D. 06/12/2022 4:52 PM Foot X-Ray 06/12/22 15:18 XR ankle RT 2V, XR foot RT 2V HISTORY: 71 years-old Male monitor for OM of the right foot/ankle chronic pain of the right foot and ankle COMPARISON: May 23, 2022 TECHNIQUE: 3 views the right foot with 3 views of the right ankle FINDINGS: ANKLE: Mild osteoarthritis redemonstrated. No acute fracture, dislocation or osteocho ndral defect. Degenerative spurring of the calcaneus. FOOT: Predominantly mild multifocal osteoarthritis. No acute fracture, dislocation or osseous erosion. Mild diffuse soft tissue swelling. IMPRESSION: 1. Stable exam from the May 23, 2022 studies. 2. No acute osseous abnormality. ACT 112: Negative or not required by law. The above report was generated using voice recognition software. It may contain grammatical, syntax or spelling errors. Electronically signed by: Bertram Fuentes M.D. 06/12/2022 4:52 PM ECG Additional Comments: No ECG available at the time of the admission, will obtain one now Code Status & VTE Plan Code Status FUll code VTE Prophylaxis Plan VTE Prophylaxis will be ordered: Yes Supervising Physician Co-Signing Physician Notes I personally saw and examined the patient. I verified all bingham points and agree with Suresh Matthews PA-C with the following exceptions and/or additions: 71 year old male presents to the ER after recent discharge from [facility] with failure to thrive at home. Son concerned he is more fatigued. Pt seen on [facility] after family had left. He reports no acute concerns or questions to me at this time. O/E Orientated to place, person and year, HS 1+2, no murmurs, irregular rhythm, regular rate, Chest CTAB, Abdo SNT, dry eschar on b/l ankles without surrounding cellulitis. A/P Failure to thrive - no new acute pathology found for deterioration, PT/OT, agree with med changes per son, stopping norco for IV morphine overnight, stopping Requip and mirtazapine. Consider reduction in gabapentin if still more drowsy however he appears alert when seen. Increase MiraLAX to BID dosing given stool burden on CT. No RUQ pain on exam to match CT imaging of gallbladder for concern for infection. PG Care Time/CCT Total # of Minutes Spent Total Time Spent with Patient: Total time spent is greater than 50% in coordination of care (as documented) at patient's floor/unit and/or counseling patient: Coding [place] [address] INT INP/OBS CARE 2MIN Patient Type Established Medical Decision Making High Complexity Diagnoses Failure to thrive Constipation K59.00 STACY (acute kidney injury) N17.9 Urinary retention R33.9 Chronic systolic CHF (congestive heart failure) I50.22 Paroxysmal atrial fibrillation I48.0 Hyperlipidemia E78.5 Gout M10.9 Depression F32.A Right groin wound S31.109A Wound of right foot S91.301A
[2022-06-12] MEDS ORDERED: DEXTROSE 50% 50 ML SYRINGE IV PRN (15:21)
[2022-06-12] MEDS ORDERED: GLUCAGON FOR INJ 1 MG VIAL SQ PRN (15:21)
[2022-06-12] MEDS ORDERED: GLUCOSE 10 TAB/TUBE PO PRN (15:21)
[2022-06-12] MEDS ORDERED: GLUCOSE 40% GEL 15 GM TUBE PO PRN (15:21)
[2022-06-12] MEDS ORDERED: HYDROCODONE/ACETAMINOPHEN 7.5/325MG TAB PO PRN ×2 (15:21→16:58)
--- NOTE | 2022-06-12 16:54 | XRay Report ---
XR ankle RT 2V, XR foot RT 2V HISTORY: 71 years-old Male monitor for OM of the right foot/ankle chronic pain of the right foot and ankle COMPARISON: May 23, 2022 TECHNIQUE: 3 views the right foot with 3 views of the right ankle FINDINGS: ANKLE: Mild osteoarthritis redemonstrated. No acute fracture, dislocation or osteochondral defect. Degenerat nohemi spurring of the calcaneus. FOOT: Predominantly mild multifocal osteoarthritis. No acute fracture, dislocation or osseous erosion. Mild diffuse soft tissue swelling. IMPRESSION: 1. Stable exam from the May 23, 2022 studies. 2. No acute osseous abnormality. ACT 112: Negative or not required by law. The above report was generated using voice recognition software. It may contain grammatical, syntax o r spelling errors. Electronically signed by: Bertram Fuentes M.D. 06/12/2022 4:52 PM
[2022-06-12 17:08] LABS: Appearance Urine Cloudy (Clear); Bacteria Urine Automated Negative (Negative); Blood Urine 2+ (Negative); Color Urine Dark Yellow; Epithelial Cell Urine Auto >30 /lpf (0-5); Glucose Urine UA Negative (Negative); Ketones Urine Negative (Negative); Leukocyte Esterase Urine Trace (Negative); Nitrite Urine Negative (Negative); Protein Urine Negative (Negative); RBC Urine Automated >30 /hpf (0-4); Urobilinogen Urine Negative (Negative); pH Urine 5.5 (4.5-7.5)
[2022-06-12 17:10] LABS: Bilirubin Urine 1+ (Negative)
[2022-06-12 17:16] LABS: Mucus Urine Present (None Prsent)
[2022-06-12] MEDS: MoRPHine SULFATE 2 MG/ML CARP IV PRN (18:39)
[2022-06-12] MEDS: ATORVASTATIN 40 MG TAB PO SCH (18:43)
[2022-06-12] MEDS: APIXABAN 5 MG TABLET PO SCH (18:45)
[2022-06-12] MEDS: DIGOXIN 0.125 MG TAB PO SCH (18:45)
[2022-06-12] MEDS: INSULIN ASPART PER UNIT SC SCH ×2 (18:46→21:22)
[2022-06-12] MEDS ORDERED: rOPINIRole HCL 0.25 MG TABLET PO SCH (19:00)
[2022-06-12] MEDS ORDERED: MIRTAZAPINE TAB 15 MG TAB PO SCH (21:00)
[2022-06-12] MEDS: DOCUSATE SODIUM/SENNA 50/8.6MG TAB PO SCH (22:24)
[2022-06-12] MEDS: POLYETHYLENE (MIRALAX) 17 GM PACK PO SCH (22:25)
[2022-06-12] MEDS: LANTUS PER UNIT CHARGE SQ SCH (22:57)
[2022-06-12] MEDS: METOPROLOL SUCC 25MG EXT REL TAB PO SCH (23:40)
[2022-06-12] MEDS: TAMSULOSIN HCL 0.4 MG CAP PO SCH (23:40)
[2022-06-12] MEDS: GABAPENTIN 300 MG CAP PO SCH (23:40)
[2022-06-13] MEDS: MoRPHine SULFATE 2 MG/ML CARP IV PRN ×3 (01:02→15:41)
[2022-06-13] MEDS: APIXABAN 5 MG TABLET PO SCH ×2 (04:56→16:42)
[2022-06-13 07:45] LABS: Albumin Level 2.9 gm/dl (3.4-5.0); Bilirubin,Total 0.8 mg/dl (0.2-1.0); Calcium 8.7 mg/dl (8.5-10.1); Magnesium 1.7 mg/dl (1.7-2.4); Potassium 3.7 mmol/L (3.5-5.1)
[2022-06-13 07:52] LABS: Albumin Globulin Ratio 0.9 (0.9-2); BUN Creatinine Ratio 34.2 (10-20); Creatinine Clr Calc Pharmacy 34.8 ml/min; Est GFR (African American) 106.7 ml/min; Globulin 3.2 gm/dl (2.5-4.0); Total Protein 6.1 gm/dl (6.0-8.3)
[2022-06-13 07:57] LABS: Hematocrit (blood only) 32.1 % (42.0-52.0); Hemoglobin 10.5 g/dl (14.0-18.0); Mean Corpuscular Hemoglobin 28.5 pg (25.0-34.0); Mean Corpuscular Hgb Conc 32.7 g/dL (32.0-36.0); Mean Platelet Volume 9.4 fL (9.4-12.4); Platelet Count 314 K/uL (130-400); RDW Coefficient of Variation 16.5 % (11.5-14.5); RDW Standard Deviation 52.7 fL (36.4-46.3); Red Blood Count 3.69 M/uL (4.70-6.10); White Blood Count 9.08 K/ul (4.8-10.8)
[2022-06-13 08:37] LABS: INR 1.5 (0.9-1.1); Prothrombin Time 15.5 Seconds (9.0-12.0)
[2022-06-13] MEDS ORDERED: POLYETHYLENE (MIRALAX) 17 GM PACK PO SCH (09:00)
[2022-06-13] MEDS: GABAPENTIN 100 MG CAP PO SCH (09:13)
[2022-06-13] MEDS: METOPROLOL SUCC 50MG EXT REL TAB PO SCH (09:13)
[2022-06-13] MEDS: ESCITALOPRAM OXALATE 10 MG TAB PO SCH (09:13)
[2022-06-13] MEDS: POLYETHYLENE (MIRALAX) 17 GM PACK PO SCH ×2 (09:14→22:18)
[2022-06-13] MEDS: allopurinoL 100 MG TAB PO SCH (09:14)
[2022-06-13] MEDS: INSULIN ASPART PER UNIT SC SCH ×4 (09:18→20:55)
[2022-06-13] MEDS: DOCUSATE SODIUM/SENNA 50/8.6MG TAB PO SCH ×2 (09:43→20:57)
[2022-06-13] MEDS: LANTUS PER UNIT CHARGE SQ SCH ×2 (09:56→20:57)
--- NOTE | 2022-06-13 11:29 | Consultation ---
Date of Consultation June 13, 2022 Assessment & Plan (1) Right groin wound: Pt with R groin post op surgical wound, healing well with wound vac, no sign of worsening infection. Continue wound vac; this was replaced today along with MARLENA Cortez. Will reeval next week if still inpt. If not, pt will need require continuation of wound vac and abx at d/c and Dr Sharp will see in office as outpt. Recommend betadine paint to R foot/ankle eschars, and use of waffle boots in bed. Please call if needed. 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 Pt initially underwent BL iliac and femoral artery embolectomies with L common fem artery endarterectomy with bovine patch and R common femoral artery bovine patch angioplasty on 05/02/22, d/t likely cardioembolism. He developed BL groin hematomas post op d/t AC. He was discharged about 2 weeks later, but returned a few days later with increased drainage from his R groin wound. Pt then underwent I&D, debridement of R groin surgical wound with wound vac placement on 05/21/22. Pt's wound continued to improve. He was discharged to rehab d/t severe deconditioning and was to follow up in office as outpt, however, when he arrived for his appt his son stated concerns regarding pt's mental status and strength, so he was sent to [facility] for eval. Pt currently states he has some pain in R heel areas, and frequently gets cramping pain in RLE. Admits fatigue. Denies QUINN, fever, chest pain, SOB, abd pain, N/V, other complaints. Allergies Allergy/AdvReac Type Severity Reaction Status Date / Time Pork/Porcine Containing AdvReac Unknown Unknown Verified 06/12/22 20:21 Products Home Medications Medication Instructions Recorded Confirmed Type metformin 500 mg tablet 500 mg PO BID #180 tabs 12/13/21 06/12/22 Rx atorvastatin 80 mg tablet 80 mg PO QPM 01/01/22 06/12/22 History spironolactone 25 mg tablet 25 mg PO QPM 01/01/22 06/12/22 History allopurinol 100 mg tablet 100 mg PO DAILY 03/21/22 06/12/22 History ropinirole 0.25 mg tablet 0.5 mg PO HS 04/30/22 06/12/22 History apixaban 5 mg tablet 5 mg PO Q12H #60 tabs 05/09/22 06/12/22 Rx tamsulosin 0.4 mg capsule 0.4 mg PO HS #20 caps 05/09/22 06/12/22 Rx acetaminophen 325 mg tablet 650 mg PO Q8H #60 tabs 05/30/22 06/12/22 Rx digoxin 125 mcg (0.125 mg) tablet 0.125 mg PO DAILY@1600 #30 tabs 05/30/22 06/12/22 Rx (Digitek) escitalopram oxalate 10 mg tablet 10 mg PO QAM #30 tabs 05/30/22 06/12/22 Rx (Lexapro) gabapentin 100 mg capsule 100 mg PO QAM #30 caps 05/30/22 06/12/22 Rx gabapentin 300 mg capsule 300 mg PO PM #30 caps 05/30/22 06/12/22 Rx hydrocodone 7.5 mg-acetaminophen 1 tab PO Q6H PRN pain #10 tabs 05/30/22 06/12/22 Rx 325 mg tablet metoprolol succinate 100 mg 100 mg PO DAILY #30 tabs 05/30/22 06/12/22 Rx tablet,extended release 24 hr metoprolol succinate 25 mg 25 mg PO HS #30 tabs 05/30/22 06/12/22 Rx tablet,extended release 24 hr mirtazapine 7.5 mg tablet 7.5 mg PO HS #30 tabs 05/30/22 06/12/22 Rx vweybsms-omc-cccsy acid 0.4 1 tab PO QAM #30 tabs 05/30/22 06/12/22 Rx mg-lycopene 300 mcg-lutein 250 mcg tablet (Cerovite Senior) polyethylene glycol 3350 17 gram 17 g PO DAILY #30 ea 05/30/22 06/12/22 Rx oral powder packet (Miralax) sennosides 8.6 mg-docusate sodium 1 tab PO BID #60 tabs 05/30/22 06/12/22 Rx 50 mg tablet (Senokot-S) Patient History Medical History Acute CVA (cerebrovascular accident) Acute occlusion of aortoiliac artery STACY (acute kidney injury) Anemia Atrial fibrillation with rapid ventricular response Atrial fibrillation with rapid ventricular response CAD (coronary artery disease) Chronic systolic CHF (congestive heart failure) Depression Diabetes Elevated troponin Gout Hx of subdural hematoma Hyperlipidemia Implantable cardioverter-defibrillator (ICD) discharge Ischemic cardiomyopathy Hx NH S/P PCI and CABG LV (left ventricular) mural thrombus Paroxysmal atrial fibrillation Restless leg syndrome Subarachnoid hemorrhage Urinary retention Surgical History AICD (automatic cardioverter/defibrillator) present H/O heart bypass surgery Family History Brother Diabetes Mother Hypertension Father Stroke Denies family history of Ovarian cancer Prostate cancer Myocardial infarction Breast cancer Colorectal cancer Social History Smoking Status: Never smoker Second Hand Exposure: No; Hx Alcohol Use: No Hx Substance Use: No Preferred Language: Luxembourgish 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: Effective Chief I Dispatcher Required: No Beliefs That Will Affect Care: None Current Living Situation: Family Current Living Situation Comment: lives with his and their son but came to use from [facility] current occupational status: retired Feels Safe at Home: Yes Safety Concerns: Feels Safe At This Time Physical Activity Frequency: 1-2 Times per Week Seatbelt Use: always Assistive Devices: Glasses and Walker Review of Systems Review of Systems: All systems reviewed & are unremarkable except as noted in HPI & below Physical Exam Constitutional: WD/WN, vitals as above cooperative and comfortable; not in distress Neck: trachea midline Respiratory: normal respiratory effort, lungs clear to auscultation Auscultation: + diminished lung sounds Cardiovascular: Rate/Rhythm: + irregularly irregular Vessels: femoral pulses present, brachial pulses present and radial pulses present; + abnormal peripheral pulses Extremities: normal capillary refill; no edema Gastrointestinal (Abdomen): Inspection/Auscultation: abdomen normal to inspection and normal bowel sounds Percussion/Palpation: abdomen soft; abdomen nontender Musculoskeletal: no cyanosis or clubbing, extremities motor strength 5/5 Skin: + wound (R groin wound with excellent granulation, mild lymph drainage) and + eschar (R lateral malleolus and lateral heel. Dry) Neurologic: moves all extremities and awake; no focal motor deficits and not confused Psychiatric: Orientation: alert and oriented x 3 Affect: + flat affect Results & Data ([facility]) Vital Signs (Past 12 Hours) Vital Signs Temp Pulse Resp BP Pulse Ox O2 Del Method 06/13/22 07:49 36.7 C 95 H 16 104/68 96 Room Air
[2022-06-13] MEDS ORDERED: traMADol HCL 50 MG TABLET PO PRN (12:16)
[2022-06-13] MEDS ORDERED: IRON SUCROSE 200 MG in 0.9 % SODIUM CHLORIDE 100 ML IV ONE (14:00)
[2022-06-13] MEDS: DOCUSATE SODIUM 100 MG CAP PO SCH ×2 (14:40→22:18)
[2022-06-13] MEDS: ATORVASTATIN 40 MG TAB PO SCH (14:41)
--- NOTE | 2022-06-13 16:30 | Hospitalist Progress Note ---
Date of Service June 13, 2022 Assessment & Plan (1) Failure to thrive: Plan: Supportive care. Treat open right inguinal wound and as shards on the right foot. Continue PT and OT. We will continue to hold Remeron and Requip. We will also try to avoid narcotics (2) Constipation: Plan: Continue bowel regimen including MiraLAX and Colace scheduled dosing. CT negative for obstruction (3) STACY (acute kidney injury): Plan: Monitor intake and output. Serial labs. Spironolactone held on admission (4) Urinary retention: Plan: Continue flomax, prn bladder scan and straight cath as needed (5) Chronic systolic CHF (congestive heart failure): Plan: Known severe LVEF of < 15%. Monitor intake and output. Continue current medical management. Stable (6) Paroxysmal atrial fibrillation: Plan: Rate control with metoprolol and Eliquis for systemic anticoagulation (7) Hyperlipidemia: Plan: Conitnue statin (8) Gout: Plan: Continue allopurinol (9) Depression: Plan: Conitnue lexapro (10) Right groin wound: Plan: Patient with known BL groin hematomas and wounds . Previously had right inguinal hematoma evacuated with wound Vac . Wound care nurse and vascular surgery consults appreciated (11) Wound of right foot: Plan: Several noninfected appearing eschar is noted on the right foot. Supportive care. Xrays negative for OM Plan Anticipate eventual discharge to SNF facility Admission and Anticipated Discharge Date Admission Date: June 13, 2022 Subjective Alert and oriented. Son is at the bedside. Lengthy discussion ensued. Vascular surgery consultation appreciated. Wound management appreciated. Iron deficiency documented. Venna for parenteral replacement has been started. We will try to avoid narcotics. Lantus placed on hold due to borderline low glucose. Review of Systems Review of Systems: Constitutional-no fever or chills ENT-no blurred vision, no double vision, no epistaxis, no sore throat Respiratory-no cough, no wheezing, no shortness of breath Cardiac-no palpitations, no chest pain, no syncope GI-no nausea, vomiting, diarrhea, melena, hematochezia -no urinary retention, no urinary incontinence, no dysuria, no hematuria Musculoskeletal-no joint pain, no muscle tenderness Skin-no bruising, no rashes, no pruritus Neuro-no isolated weakness, no paresthesia, no weakness Psych-no depression, no anxiety Physical Exam Physical Exam: General-alert and oriented x3, no fevers, no chills HEENT-head atraumatic and normocephalic, TMs intact bilaterally, pupils equal and reactive to light, extraocular muscles intact Neck-no lymphadenopathy or thyromegaly, trachea midline Chest-clear to auscultation percussion. No rales wheezing or rhonchi Cardiac-regular rate and rhythm, normal S1 and S2, no murmurs Abdomen-normal bowel sounds, nontender, no hepatosplenomegaly Extremities-open right inguinal or wound from previous hematoma evacuation. Several noninfected appearing eschars present on the lateral malleolus of the right foot Neuro-cranial nerves II through XII intact, motor and sensory function within normal limits, strength symmetrical , no focal deficits Psych-normal affect, normal mood Results & Data Results & Data ([facility]) Vital Signs (Past 12 Hours) Vital Signs Temp Pulse Pulse Resp BP BP Pulse Ox 06/13/22 15:39 36.8 C 93 H 14 114/68 97 06/13/22 15:06 37.0 C 91 H 14 128/64 96 06/13/22 14:46 36.6 C 91 H 14 116/71 95 06/13/22 07:49 36.7 C 95 H 16 104/68 96 O2 Del Method 06/13/22 15:39 Room Air 06/13/22 15:06 Room Air 06/13/22 14:46 Room Air 06/13/22 07:49 Room Air Laboratory Results 06/13/22 07:01 06/13/22 07:01 PG Care Time/CCT Total # of Minutes Spent Total Time Spent with Patient: Total time spent is greater than 50% in coordination of care (as documented) at patient's floor/unit and/or counseling patient: Coding Level of Care Code 21313 SUB INP/OBS CARE 3/50MIN Diagnoses Failure to thrive R62.7 Failure to thrive age range: in adult Constipation K59.00 STACY (acute kidney injury) N17.9 Urinary retention R33.9 Chronic systolic CHF (congestive heart failure) I50.22 Paroxysmal atrial fibrillation I48.0 Hyperlipidemia E78.5 Gout M10.9 Depression F32.A Right groin wound S31.109D Encounter type: subsequent encounter Wound of right foot S91.301A (1) Failure to thrive Failure to thrive age range: in adult Qualified Code(s): R62.7 - Adult failure to thrive (2) Right groin wound Encounter type: subsequent encounter Qualified Code(s): S31.109D - Unspecified open wound of abdominal wall, unspecified quadrant without penetration into peritoneal cavity, subsequent encounter
[2022-06-13] MEDS: DIGOXIN 0.125 MG TAB PO SCH (16:42)
[2022-06-13] MEDS: CARBOHYDRATES FOR HYPOGLYCEMIA PO PRN (20:52)
[2022-06-13] MEDS: GABAPENTIN 300 MG CAP PO SCH (20:57)
[2022-06-13] MEDS: TAMSULOSIN HCL 0.4 MG CAP PO SCH (20:57)
[2022-06-13] MEDS: METOPROLOL SUCC 25MG EXT REL TAB PO SCH (22:18)
[2022-06-14] MEDS: MoRPHine SULFATE 2 MG/ML CARP IV PRN ×2 (02:45→13:50)
[2022-06-14] MEDS: APIXABAN 5 MG TABLET PO SCH ×2 (04:39→16:47)
[2022-06-14 07:08] LABS: Hematocrit (blood only) 31.6 % (42.0-52.0); Hemoglobin 10.5 g/dl (14.0-18.0); Mean Corpuscular Hemoglobin 28.7 pg (25.0-34.0); Mean Corpuscular Hgb Conc 33.2 g/dL (32.0-36.0); Mean Corpuscular Volume 86.3 fL (80.0-100.0); Mean Platelet Volume 9.9 fL (9.4-12.4); Platelet Count 314 K/uL (130-400); RDW Coefficient of Variation 16.6 % (11.5-14.5); RDW Standard Deviation 51.9 fL (36.4-46.3); Red Blood Count 3.66 M/uL (4.70-6.10); White Blood Count 7.33 K/ul (4.8-10.8)
[2022-06-14 07:40] LABS: Albumin Level 2.8 gm/dl (3.4-5.0); Bilirubin,Total 0.6 mg/dl (0.2-1.0); Calcium 8.4 mg/dl (8.5-10.1); Potassium 3.7 mmol/L (3.5-5.1)
[2022-06-14 07:46] LABS: Albumin Globulin Ratio 0.9 (0.9-2); BUN Creatinine Ratio 31.8 (10-20); Creatinine Clr Calc Pharmacy 38.5 ml/min; Est GFR (African American) 111.2 ml/min; Est GFR (Non-African American) 95.9 ml/min; Globulin 3.1 gm/dl (2.5-4.0); Total Protein 5.9 gm/dl (6.0-8.3)
[2022-06-14] MEDS: INSULIN ASPART PER UNIT SC SCH ×4 (09:35→21:03)
[2022-06-14] MEDS: ESCITALOPRAM OXALATE 10 MG TAB PO SCH (09:40)
[2022-06-14] MEDS: allopurinoL 100 MG TAB PO SCH (09:40)
[2022-06-14] MEDS: POLYETHYLENE (MIRALAX) 17 GM PACK PO SCH ×2 (09:41→21:26)
[2022-06-14] MEDS: DOCUSATE SODIUM 100 MG CAP PO SCH ×2 (09:41→21:28)
[2022-06-14] MEDS: METOPROLOL SUCC 50MG EXT REL TAB PO SCH (09:41)
[2022-06-14] MEDS: GABAPENTIN 100 MG CAP PO SCH (09:41)
[2022-06-14] MEDS: LANTUS PER UNIT CHARGE SQ SCH ×2 (09:42→21:34)
[2022-06-14] MEDS: DOCUSATE SODIUM/SENNA 50/8.6MG TAB PO SCH ×2 (09:45→21:34)
[2022-06-14] MEDS ORDERED: IRON SUCROSE 200 MG in 0.9 % SODIUM CHLORIDE 100 ML IV ONE (09:45)
[2022-06-14] MEDS: ATORVASTATIN 40 MG TAB PO SCH (12:23)
--- NOTE | 2022-06-14 12:46 | Hospitalist Progress Note ---
Date of Service June 14, 2022 Assessment & Plan (1) Weakness: Plan: Continue OT and PT services. He will need placement at discharge (2) Constipation: Plan: Continue current bowel regimen (3) Wound of right foot: Plan: 2 eschar is noted on the right foot. Vascular surgery consultation and wound care consultation appreciated. He is receiving Betadine paint applications currently (4) Right groin wound: Plan: Previously infected right inguinal hematoma was evacuated and wound VAC is now necessary. Appreciate vascular surgery consultation and recommendations as long as wound care nursing assistance (5) STACY (acute kidney injury): Plan: Resolved with hydration. Monitor intake and output. Serial labs (6) Failure to thrive: Plan: Supportive care. Continue OT and PT (7) Acute encephalopathy: Plan: Acute combined toxic and metabolic encephalopathy present on admission. Now resolved. Trying to avoid parenteral narcotics for pain control. He states the tramadol is adequate for now. Gabapentin discontinued today, June 14, at son's request Plan Eventual discharge to SNF facility soon. Admission and Anticipated Discharge Date Admission Date: June 13, 2022 Subjective Sleeping but easily arousable and oriented. Gabapentin discontinued at his son's request which could be contributing to the sedation. The patient states the tramadol ordered yesterday is adequate for his pain control. Vascular surgery consultation noted. Betadine paint is being applied to the eschar's on the right foot. Day 2 of 3 of parenteral Venofer for iron replacement. He will need SNF placement at discharge. Review of Systems Review of Systems: Constitutional-no fever or chills ENT-no blurred vision, no double vision, no epistaxis, no sore throat Respiratory-no cough, no wheezing, no shortness of breath Cardiac-no palpitations, no chest pain, no syncope GI-no nausea, vomiting, diarrhea, melena, hematochezia -no urinary retention, no urinary incontinence, no dysuria, no hematuria Musculoskeletal-no joint pain, no muscle tenderness Skin-no bruising, no rashes, no pruritus Neuro-no isolated weakness, no paresthesia, no weakness Psych-no depression, no anxiety Physical Exam Physical Exam: General-alert and oriented x3, no fevers, no chills HEENT-head atraumatic and normocephalic, TMs intact bilaterally, pupils equal and reactive to light, extraocular muscles intact Neck-no lymphadenopathy or thyromegaly, trachea midline Chest-clear to auscultation percussion. No rales wheezing or rhonchi Cardiac-regular rate and rhythm, normal S1 and S2, no murmurs Abdomen-normal bowel sounds, nontender, no hepatosplenomegaly Extremities-open right inguinal or wound from previous hematoma evacuation. Several noninfected appearing eschars present on the lateral malleolus of the right foot Neuro-cranial nerves II through XII intact, motor and sensory function within normal limits, strength symmetrical , no focal deficits Psych-normal affect, normal mood Results & Data Results & Data ([facility]) Vital Signs (Past 12 Hours) Vital Signs Temp Pulse Resp BP Pulse Ox O2 Del Method 06/14/22 07:02 37.1 C 88 16 112/67 97 Room Air Laboratory Results 06/14/22 05:58 06/14/22 05:58 PG Care Time/CCT Total # of Minutes Spent Total Time Spent with Patient: Total time spent is greater than 50% in coordination of care (as documented) at patient's floor/unit and/or counseling patient: Coding Level of Care Code 23132 SUB INP/OBS CARE 3/50MIN Diagnoses Weakness R53.1 Constipation K59.00 Constipation type: unspecified constipation type Wound of right foot S91.301A Right groin wound S31.109D Encounter type: subsequent encounter STACY (acute kidney injury) N17.9 Failure to thrive R62.7 Failure to thrive age range: in adult Acute encephalopathy G93.40 (1) Constipation Constipation type: unspecified constipation type Qualified Code(s): K59.00 - Constipation, unspecified (2) Right groin wound Encounter type: subsequent encounter Qualified Code(s): S31.109D - Un specified open wound of abdominal wall, unspecified quadrant without penetration into peritoneal cavity, subsequent encounter (3) Failure to thrive Failure to thrive age range: in adult Qualified Code(s): R62.7 - Adult failure to thrive
[2022-06-14] MEDS: DIGOXIN 0.125 MG TAB PO SCH (16:45)
[2022-06-14] MEDS: traMADol HCL 50 MG TABLET PO PRN (21:26)
[2022-06-14] MEDS: TAMSULOSIN HCL 0.4 MG CAP PO SCH (21:27)
[2022-06-14] MEDS: METOPROLOL SUCC 25MG EXT REL TAB PO SCH (21:27)
[2022-06-15] MEDS: APIXABAN 5 MG TABLET PO SCH ×2 (04:42→17:06)
[2022-06-15 06:29] LABS: Hematocrit (blood only) 34.8 % (42.0-52.0); Hemoglobin 11.2 g/dl (14.0-18.0); Mean Corpuscular Hemoglobin 28.7 pg (25.0-34.0); Mean Corpuscular Hgb Conc 32.2 g/dL (32.0-36.0); Mean Corpuscular Volume 89.2 fL (80.0-100.0); Mean Platelet Volume 9.4 fL (9.4-12.4); Platelet Count 313 K/uL (130-400); RDW Coefficient of Variation 16.5 % (11.5-14.5); White Blood Count 9.27 K/ul (4.8-10.8)
[2022-06-15 06:49] LABS: Bilirubin,Total 0.6 mg/dl (0.2-1.0); Calcium 8.8 mg/dl (8.5-10.1); Potassium 3.8 mmol/L (3.5-5.1)
[2022-06-15 06:55] LABS: Albumin Globulin Ratio 0.9 (0.9-2); BUN Creatinine Ratio 25.4 (10-20); Creatinine Clr Calc Pharmacy 35.8 ml/min; Est GFR (African American) 107.9 ml/min; Est GFR (Non-African American) 93.1 ml/min; Globulin 3.5 gm/dl (2.5-4.0); Total Protein 6.5 gm/dl (6.0-8.3)
[2022-06-15] MEDS: POLYETHYLENE (MIRALAX) 17 GM PACK PO SCH ×2 (09:27→20:36)
[2022-06-15] MEDS: allopurinoL 100 MG TAB PO SCH (09:27)
[2022-06-15] MEDS: DOCUSATE SODIUM 100 MG CAP PO SCH ×2 (09:28→20:35)
[2022-06-15] MEDS: METOPROLOL SUCC 50MG EXT REL TAB PO SCH (09:28)
[2022-06-15] MEDS: DOCUSATE SODIUM/SENNA 50/8.6MG TAB PO SCH ×2 (09:29→20:38)
[2022-06-15] MEDS: ESCITALOPRAM OXALATE 10 MG TAB PO SCH (09:29)
[2022-06-15] MEDS: traMADol HCL 50 MG TABLET PO PRN (09:45)
[2022-06-15] MEDS ORDERED: IRON SUCROSE 200 MG in 0.9 % SODIUM CHLORIDE 100 ML IV ONE (10:00)
[2022-06-15] MEDS: INSULIN ASPART PER UNIT SC SCH ×4 (10:14→20:36)
[2022-06-15] MEDS: LANTUS PER UNIT CHARGE SQ SCH (10:16)
[2022-06-15] MEDS: MoRPHine SULFATE 2 MG/ML CARP IV PRN (11:27)
[2022-06-15] MEDS: oxyCODONE HCL IR 5 MG TAB (IMMEDIATE RELEASE) PO PRN (15:01)
[2022-06-15] MEDS: ATORVASTATIN 40 MG TAB PO SCH (15:02)
--- NOTE | 2022-06-15 15:48 | Hospitalist Progress Note ---
Date of Service June 15, 2022 Assessment & Plan (1) Weakness: Plan: Continue OT and PT services. He will need placement at discharge (2) Constipation: Plan: Continue current bowel regimen. He has had a as needed enema (3) Wound of right foot: Plan: 2 eschar is noted on the right foot. Vascular surgery consultation and wound care consultation appreciated. He is receiving Betadine paint applications currently. X-ray negative for underlying osteomyelitis (4) Right groin wound: Plan: Previously infected right inguinal hematoma was evacuated and wound VAC is now necessary. Appreciate vascular surgery consultation and recommendations as long as wound care nursing assistance (5) STACY (acute kidney injury): Plan: Resolved with hydration. Monitor intake and output. Serial labs (6) Failure to thrive: Plan: Supportive care. Continue OT and PT (7) Acute encephalopathy: Plan: Acute combined toxic and metabolic encephalopathy present on admission. Now resolved. Trying to avoid parenteral narcotics for pain control. The patient and son are aware that oxycodone could cause drowsiness. Tramadol has not controlled his pain and has been discontinued. Gabapentin has been discontinued June 14, at son's request Plan Eventual discharge to SNF facility soon. Admission and Anticipated Discharge Date Admission Date: June 13, 2022 Subjective Alert and oriented. No acute distress. Tramadol is not controlling his pain. Oxy IR has been ordered. Today is day 3 of parenteral iron replacement. We will start oral iron supplements tomorrow. Hemoglobin trending upward to 11.2. Restarted his usual metformin which he takes at home Review of Systems Review of Systems: Constitutional-no fever or chills ENT-no blurred vision, no double vision, no epistaxis, no sore throat Respiratory-no cough, no wheezing, no shortness of breath Cardiac-no palpitations, no chest pain, no syncope GI-no nausea, vomiting, diarrhea, melena, hematochezia -no urinary retention, no urinary incontinence, no dysuria, no hematuria Musculoskeletal-no joint pain, no muscle tenderness Skin-no bruising, no rashes, no pruritus Neuro-no isolated weakness, no paresthesia, no weakness Psych-no depression, no anxiety Physical Exam Physical Exam: General-alert and oriented x3, no fevers, no chills HEENT-head atraumatic and normocephalic, TMs intact bilaterally, pupils equal and reactive to light, extraocular muscles intact Neck-no lymphadenopathy or thyromegaly, trachea midline Chest-clear to auscultation percussion. No rales wheezing or rhonchi Cardiac-regular rate and rhythm, normal S1 and S2, no murmurs Abdomen-normal bowel sounds, nontender, no hepatosplenomegaly Extremities-open right inguinal or wound from previous hematoma evacuation. Several noninfected appearing eschars present on the lateral malleolus of the right foot Neuro-cranial nerves II through XII intact, motor and sensory function within normal limits, strength symmetrical , no focal deficits Psych-normal affect, normal mood Results & Data Results & Data ([facility]) Vital Signs (Past 12 Hours) Vital Signs Temp Pulse Pulse Pulse Resp BP Pulse Ox 06/15/22 12:06 36.4 C L 79 16 103/66 94 06/15/22 11:28 36.6 C 81 80 16 99/63 L 98 06/15/22 09:55 82 98 06/15/22 08:44 36.9 C 91 H 18 111/73 93 O2 Del Method 06/15/22 12:06 Room Air 06/15/22 11:28 Room Air 06/15/22 09:55 Room Air 06/15/22 08:44 Room Air Laboratory Results 06/15/22 06:01 06/15/22 06:01 PG Care Time/CCT Total # of Minutes Spent Total Time Spent with Patient: Total time spent is greater than 50% in coordination of care (as documented) at patient's floor/unit and/or counseling patient: Coding Level of Care Code 38685 SUB INP/OBS CARE 3/50MIN Diagnoses Weakness R53.1 Constipation K59.00 Constipation type: unspecified constipation type Wound of right foot S91.301A Right groin wound S31.109D Encounter type: subsequent encounter STACY (acute kidney injury) N17.9 Failure to thrive R62.7 Failure to thrive age range: in adult Acute encephalopathy G93.40 (1) Constipation Constipation type: unspecified constipation type Qualified Code(s): K59.00 - Constipation, unspecified (2) Right groin wound Encounter type: subsequent encounter Qualified Code(s): S31.109D - Unspecified open wound of abdominal wall, unspecified quadrant without penetration into peritoneal cavity, subsequent encounter (3) Failure to thrive Failure to thrive age range: in adult Qualified Code(s): R62.7 - Adult failure to thrive
[2022-06-15] MEDS: DIGOXIN 0.125 MG TAB PO SCH (17:07)
[2022-06-15] MEDS: metFORMIN HCL 500 MG TAB PO SCH (17:12)
[2022-06-15] MEDS: TAMSULOSIN HCL 0.4 MG CAP PO SCH (20:35)
[2022-06-15] MEDS: METOPROLOL SUCC 25MG EXT REL TAB PO SCH (20:35)
[2022-06-16] MEDS: APIXABAN 5 MG TABLET PO SCH ×2 (03:41→15:21)
[2022-06-16] MEDS: oxyCODONE HCL IR 5 MG TAB (IMMEDIATE RELEASE) PO PRN ×3 (03:41→17:53)
[2022-06-16] MEDS: MoRPHine SULFATE 2 MG/ML CARP IV PRN ×2 (08:08→15:08)
[2022-06-16] MEDS: metFORMIN HCL 500 MG TAB PO SCH ×2 (08:18→17:44)
[2022-06-16] MEDS: METOPROLOL SUCC 50MG EXT REL TAB PO SCH (08:19)
[2022-06-16] MEDS: ESCITALOPRAM OXALATE 10 MG TAB PO SCH (08:19)
[2022-06-16] MEDS: allopurinoL 100 MG TAB PO SCH (08:19)
[2022-06-16] MEDS: DOCUSATE SODIUM 100 MG CAP PO SCH ×2 (08:20→20:08)
[2022-06-16] MEDS: POLYETHYLENE (MIRALAX) 17 GM PACK PO SCH ×2 (08:20→20:06)
[2022-06-16] MEDS: DOCUSATE SODIUM/SENNA 50/8.6MG TAB PO SCH ×2 (08:20→20:06)
[2022-06-16] MEDS: INSULIN ASPART PER UNIT SC SCH ×4 (09:13→21:00)
--- NOTE | 2022-06-16 09:43 | Surgery Progress Note ---
Date of Service June 16, 2022 Assessment & Plan (1) Right groin wound: Plan: Pt with R groin post op surgical wound, healing well with wound vac, no sign of worsening infection. Continue wound vac; this was replaced today along with MARLENA Cortez. Will reeval on Thursday if still inpt. Will see in office as outpt after discharge. Recommend betadine paint to R foot/ankle eschars, and use of waffle boots in bed. Please call if needed. Admission and Anticipated Discharge Date Admission Date: June 13, 2022 Subjective 71 yo m s/p debridement of R groin surgical wound infection, seen in f/u today. Pt admits pain in R foot, but denies any other complaints presently. Review of Systems Review of Systems: All systems reviewed & are unremarkable except as noted in HPI & below Physical Exam Constitutional: WD/WN, vitals as above cooperative and comfortable; not in distress Cardiovascular: Vessels: femoral pulses present, brachial pulses present and radial pulses present; + abnormal peripheral pulses Extremities: normal capillary refill Skin: + wound (R groin wound with excellent granulation, mild lymph drainage) and + eschar (R lateral malleolus and lateral heel. Dry) Neurologic: moves all extremities and awake; no focal motor deficits and not confused Psychiatric: Orientation: alert and oriented x 3 Affect: + flat affect Results & Data ([facility]) Vital Signs (Past 12 Hours) Vital Signs Temp Pulse Resp BP Pulse Ox O2 Del Method 06/16/22 08:44 36.8 C 84 18 108/69 96 Room Air 06/15/22 22:02 36.6 C 85 18 113/67 94 Room Air (1) Right groin wound Encounter type: subsequent encounter Qualified Code(s): S31.109D - Unspecified open wound of abdominal wall, unspecified quadrant without penetration into peritoneal cavity, subsequent encounter
[2022-06-16] MEDS: ATORVASTATIN 40 MG TAB PO SCH (12:38)
--- NOTE | 2022-06-16 15:19 | Hospitalist Progress Note ---
Date of Service June 16, 2022 Assessment & Plan (1) Weakness: Plan: Continue OT and PT services. He will need placement at discharge (2) Constipation: Plan: Continue current bowel regimen. He has had a as needed enema (3) Wound of right foot: Plan: 2 eschar is noted on the right foot. Vascular surgery consultation and wound care consultation appreciated. He is receiving Betadine paint applications currently. X-ray negative for underlying osteomyelitis (4) Right groin wound: Plan: Previously infected right inguinal hematoma was evacuated and wound VAC is now necessary. Appreciate vascular surgery consultation and recommendations as long as wound care nursing assistance (5) STACY (acute kidney injury): Plan: Resolved with hydration. Monitor intake and output. Serial labs (6) Failure to thrive: Plan: Supportive care. Continue OT and PT (7) Acute encephalopathy: Plan: Acute combined toxic and metabolic encephalopathy present on admission. Previously resolved but he is confused and disoriented today, June 16. Probably due to opioid medication for the leg pain. Trying to avoid parenteral narcotics for pain control. Tramadol has not controlled his pain and has been discontinued. Gabapentin has been discontinued June 14, at son's request. Supportive care Plan Eventual discharge to SNF facility when arrangements are finalized Admission and Anticipated Discharge Date Admission Date: June 13, 2022 Supervising Physician Co-Signing Physician Notes I personally saw and examined the patient. I verified all bingham points and agree with Suresh Matthews PA-C with the following exceptions and/or additions: 71 year old male presents to the ER after recent discharge from [facility] with failure to thrive at home. Son concerned he is more fatigued. Pt seen on [facility] after family had left. He reports no acute concerns or questions to me at this time. O/E Orientated to place, person and year, HS 1+2, no murmurs, irregular rhythm, re gular rate, Chest CTAB, Abdo SNT, dry eschar on b/l ankles without surrounding cellulitis. A/P Failure to thrive - no new acute pathology found for deterioration, PT/OT, agree with med changes per son, stopping norco for IV morphine overnight, stopping Requip and mirtazapine. Consider reduction in gabapentin if still more drowsy however he appears alert when seen. Increase MiraLAX to BID dosing given stool burden on CT. No RUQ pain on exam to match CT imaging of gallbladder for concern for infection. Subjective Alert but disoriented. No acute distress. Disorientation and confusion probably due to narcotic medications for the pain. He has received 3 days of parenteral iron replacement. We will start oral supplementation today, June 16. Previous right ankle x-ray done on admission negative for osteomyelitis. Placement pending. Review of Systems Review of Systems: He cannot currently comply with review of system questioning. Although he is alert in no acute distress, he is disoriented Physical Exam Physical Exam: General-alert but disoriented. No fevers, no chills HEENT-head atraumatic and normocephalic, pupils equal and reactive to light, extraocular muscles intact Neck-no lymphadenopathy or thyromegaly, trachea midline Chest-clear to auscultation percussion. No rales wheezing or rhonchi Cardiac-regular rate and rhythm, normal S1 and S2, no murmurs Abdomen-normal bowel sounds, nontender, no hepatosplenomegaly Extremities-open right inguinal wound from previous hematoma evacuation. Several noninfected appearing eschars present on the lateral malleolus of the right foot and right heel Neuro-cranial nerves II through XII intact, motor and sensory function within normal limits, strength symmetrical , no focal deficits Psych-normal affect, normal mood. He is confused today Results & Data Results & Data ([facility]) Vital Signs (Past 12 Hours) Vital Signs Temp Pulse Resp BP Pulse Ox O2 Del Method 06/16/22 08:44 36.8 C 84 18 108/69 96 Room Air Laboratory Results 06/15/22 06:01 06/15/22 06:01 PG Care Time/CCT Total # of Minutes Spent Total Time Spent with Patient: Total time spent is greater than 50% in coordination of care (as documented) at patient's floor/unit and/or counseling patient: Coding Level of Care Code 22177 SUB INP/OBS CARE 3/50MIN Diagnoses Weakness R53.1 Constipation K59.00 Constipation type: unspecified constipation type Wound of right foot S91.301A Right groin wound S31.109D Encounter type: subsequent encounter STACY (acute kidney injury) N17.9 Failure to thrive R62.7 Failure to thrive age range: in adult Acute encephalopathy G93.40 (1) Constipation Constipation type: unspecified constipation type Qualified Code(s): K59.00 - Constipation, unspecified (2) Right groin wound Encounter type: subsequent encounter Qualified Code(s): S31.109D - Unspecified open wound of abdominal wall, unspecified quadrant without penetration into peritoneal cavity, subsequent encounter (3) Failure to thrive Failure to thrive age range: in adult Qualified Code(s): R62.7 - Adult failure to thrive
[2022-06-16] MEDS: DIGOXIN 0.125 MG TAB PO SCH (15:21)
[2022-06-16] MEDS: FERROUS SULFATE 325 MG TAB PO SCH (17:44)
[2022-06-16] MEDS: TAMSULOSIN HCL 0.4 MG CAP PO SCH (20:07)
[2022-06-16] MEDS: METOPROLOL SUCC 25MG EXT REL TAB PO SCH (20:07)
[2022-06-17] MEDS: oxyCODONE HCL IR 5 MG TAB (IMMEDIATE RELEASE) PO PRN ×3 (01:02→17:29)
[2022-06-17] MEDS: APIXABAN 5 MG TABLET PO SCH ×2 (04:41→17:17)
[2022-06-17] MEDS: DOCUSATE SODIUM 100 MG CAP PO SCH ×2 (08:04→20:53)
[2022-06-17] MEDS: allopurinoL 100 MG TAB PO SCH (08:04)
[2022-06-17] MEDS: METOPROLOL SUCC 50MG EXT REL TAB PO SCH (08:04)
[2022-06-17] MEDS: ESCITALOPRAM OXALATE 10 MG TAB PO SCH (08:05)
[2022-06-17] MEDS: FERROUS SULFATE 325 MG TAB PO SCH ×2 (08:05→17:17)
[2022-06-17] MEDS: POLYETHYLENE (MIRALAX) 17 GM PACK PO SCH ×2 (08:05→20:54)
[2022-06-17] MEDS: MoRPHine SULFATE 2 MG/ML CARP IV PRN (09:55)
[2022-06-17] MEDS: metFORMIN HCL 500 MG TAB PO SCH ×2 (09:55→17:17)
[2022-06-17] MEDS: INSULIN ASPART PER UNIT SC SCH ×4 (09:59→21:00)
[2022-06-17] MEDS: DOCUSATE SODIUM/SENNA 50/8.6MG TAB PO SCH ×2 (11:07→20:52)
[2022-06-17] MEDS: ATORVASTATIN 40 MG TAB PO SCH (12:20)
[2022-06-17] MEDS: DIGOXIN 0.125 MG TAB PO SCH (17:17)
[2022-06-17] MEDS: HYDROCODONE/ACETAMOPHEN 5/325MG TAB PO PRN (20:50)
[2022-06-17] MEDS: ACETAMINOPHEN 325 MG TAB PO SCH (20:51)
[2022-06-17] MEDS: METOPROLOL SUCC 25MG EXT REL TAB PO SCH (20:52)
[2022-06-17] MEDS: TAMSULOSIN HCL 0.4 MG CAP PO SCH (20:53)
--- NOTE | 2022-06-17 20:53 | Hospitalist Progress Note ---
Date of Service June 17, 2022 Assessment & Plan (1) Weakness: Plan: Multifactorial - multiple hospital admits since 04/2022. Rehab stays. Deconditioning. Depression (highly suspected and undertreated). Can't rule out COMMUNITY AIDE event (see below). Continue OT and PT services. He will need SNF placement at discharge - family requesting such. (2) Constipation: Plan: Add senna to miralax. Give both daily. (3) Wound of right foot: Plan: 2 eschar is noted on the right foot. Vascular surgery consultation and wound care consultation appreciated. He is receiving Betadine paint applications currently. X-ray negative for underlying osteomyelitis but he has SEVERE pain. If pacer/ICD is MRI-compatible will obtain MRI right foot - r/o osteo, etc. If not MRI-compatible then CT or bone scan. Pain control - change oxy to norco prn. Schedule tylenol TID. d/c morphine. see below. (4) Right groin wound: Plan: Previously infected right inguinal hematoma was evacuated and wound VAC is now necessary. Appreciate vascular surgery consultation and recommendations as long as wound care nursing assistance. Cont woundvac. Previously received course of IV ertapenem for ESBL Klebsiella. (5) STACY (acute kidney injury): Plan: Resolved Peak Cr 1 this admission Now 0.7 (6) Failure to thrive: Plan: See #1 above Unfortunately did not tolerate mirtazapine Consider psych consult for med recs Continue OT and PT Most recent TSH, B12, etc wnl (7) Acute encephalopathy: Plan: mostly toxic from meds - previously did not tolerate gabapentin nor remeron. both stopped. there are concerns for morphine and oxy - d/c both. try low-dose norco in geeta. re-eval tomorrow. if MRI-compatible device is present then obtain MRI brain - r/o subacute strokes (8) Urinary retention: Plan: s/p jeff insertion at admission urine cx was negative cont flomax HS (9) Chronic systolic CHF (congestive heart failure): Plan: EF <15% cont metoprolol succ appears compensated (10) Paroxysmal atrial fibrillation: Plan: BB eliquis dig (recent level wnl) (11) LV (left ventricular) mural thrombus: Plan: history of, which then led to b/l iliac artery clots, prompting bypass surgery Dr Sharp 04/2022 cont Eliquis (12) Ischemic cardiomyopathy: Plan: no ischemic symptoms at this time compensated from volume standpoint (13) CAD (coronary artery disease): Plan: cont statin cont BB (14) AICD (automatic cardioverter/defibrillator) present: Plan: see above re: ?MRI-compatible device (15) Depression: Plan: cont lexapro consider psych consult MRI brain if able if not able then CT head (16) Hx of subdural hematoma: (17) History of stroke: Plan: MRI Brain if possible Plan dispo = SNF daughter extensively updated at bedside Admission and Anticipated Discharge Date Admission Date: June 13, 2022 Subjective pt lying in bed c/o right heel pain pt's daughter was present daughter is concerned about ongoing confusion - concerned it is from pain meds he continues to have poor appetite during the visit he is very tangential, talking about time he had spent in [place] and other worldly locations when asked focused questions it sometimes takes him 2-3 times before giving an appropriate response Review of Systems Review of Systems: cv - no orthopnea; no cp pulm - no dyspnea GI - no abd pain skin - ongoing healing ulcer in right groin Physical Exam Physical Exam: gen - NAD, talkative, tangential neck - no JVD mouth - MMM heart - irregular, s1 s2 lungs - CTA b/l abd - soft NT ND BS+ ext - no edema, pulses 2+ b/l, cap refill both feet <2 sec skin - woundvac in place right groin; right foot - 2 large "punched" out circular ulcers with black eschar; largest is over the calcaneal region psych - oriented to person only; thought he was at home Results & Data Results & [facility] ([facility]) Vital Signs (Past 12 Hours) Vital Signs Temp Pulse Pulse Resp BP Pulse Ox O2 Del Method 06/17/22 20:44 36.6 C 89 18 106/60 99 Room Air 06/17/22 17:17 95 H Laboratory Results Laboratory Results - last 48 hr 06/16/22 06/16/22 06/16/22 12:14 17:04 20:46 POC Glucose 101 H 77 106 H 06/17/22 06/17/22 06/17/22 08:28 12:00 17:27 POC Glucose 102 H 84 112 H 06/17/22 20:35 POC Glucose 89 PG Care Time/CCT Total # of Minutes Spent Total Time Spent with Patient: Total time spent is greater than 50% in coordination of care (as documented) at patient's floor/unit and/or counseling patient: Coding Level of Care Code 08275 SUB INP/OBS CARE 3/50MIN Diagnoses Weakness R53.1 Constipation K59.00 Constipation type: unspecified constipation type Wound of right foot S91.301A Right groin wound S31.109D Encounter type: subsequent encounter STACY (acute kidney injury) N17.9 Failure to thrive R62.7 Failure to thrive age range: in adult Acute encephalopathy G93.40 Urinary retention R33.9 Chronic systolic CHF (congestive heart failure) I50.22 Paroxysmal atrial fibrillation I48.0 LV (left ventricular) mural thrombus I51.3 Ischemic cardiomyopathy I25.5 CAD (coronary artery disease) I25.10 AICD (automatic cardioverter/defibrillator) present Z95.810 Depression F32.A Hx of subdural hematoma Z86.79 History of stroke Z86.73 (1) Right groin wound Encounter type: subsequent encounter Qualified Code(s): S31.109D - Unspecified open wound of abdominal wall, unspecified quadrant without penetration into peritoneal cavity, subsequent encounter (2) Failure to thrive Failure to thrive age range: in adult Qualified Code(s): R62.7 - Adult failure to thrive (3) Constipation Constipation type: unspecified constipation type Qualified Code(s): K59.00 - Constipation, unspecified
[2022-06-18] MEDS ORDERED: Nursing to Pharmacy Communication SCH (05:00)
[2022-06-18] MEDS: HYDROCODONE/ACETAMOPHEN 5/325MG TAB PO PRN ×3 (05:38→14:25)
[2022-06-18] MEDS: ACETAMINOPHEN 325 MG TAB PO SCH ×3 (08:30→20:46)
[2022-06-18] MEDS: INSULIN ASPART PER UNIT SC SCH ×4 (09:55→21:55)
[2022-06-18] MEDS: METOPROLOL SUCC 50MG EXT REL TAB PO SCH (10:03)
[2022-06-18] MEDS: metFORMIN HCL 500 MG TAB PO SCH ×2 (10:03→18:12)
[2022-06-18] MEDS: APIXABAN 5 MG TABLET PO SCH ×2 (10:03→20:44)
[2022-06-18] MEDS: allopurinoL 100 MG TAB PO SCH (10:03)
[2022-06-18] MEDS: FERROUS SULFATE 325 MG TAB PO SCH ×2 (10:04→18:13)
[2022-06-18] MEDS: DOCUSATE SODIUM 100 MG CAP PO SCH ×2 (10:04→20:42)
[2022-06-18] MEDS: DOCUSATE SODIUM/SENNA 50/8.6MG TAB PO SCH ×2 (10:04→20:42)
[2022-06-18] MEDS: ESCITALOPRAM OXALATE 10 MG TAB PO SCH (10:05)
[2022-06-18 10:18] LABS: BUN Creatinine Ratio 22.7 (10-20); Calcium 8.9 mg/dl (8.5-10.1); Est GFR (African American) 105.5 ml/min; Potassium 4.2 mmol/L (3.5-5.1)
[2022-06-18] MEDS: ATORVASTATIN 40 MG TAB PO SCH (13:35)
[2022-06-18] MEDS: POLYETHYLENE (MIRALAX) 17 GM PACK PO SCH ×2 (13:35→20:47)
[2022-06-18] MEDS: HYDROCODONE/ACETAMOPHEN 5/325MG TAB PO STA ×2 (16:12→17:03)
[2022-06-18] MEDS: DIGOXIN 0.125 MG TAB PO SCH (18:12)
[2022-06-18] MEDS ORDERED: HYDROCODONE/ACETAMOPHEN 5/325MG TAB PO PRN (20:00)
--- NOTE | 2022-06-18 20:08 | Hospitalist Progress Note ---
Date of Service June 18, 2022 Assessment & Plan (1) Right foot pain: Plan: several weeks ago during his previous admission for right groin infection/hematoma and washout / I&D of such he had SEVERE right foot pain (and some left foot pain too) during that hospitalization it was suspected to be neuropathic in etiology and gabapentin was tried unfortunately he did not tolerate gabapentin and it was stopped he has been intolerant of multiple narcotics including tramadol, oxycodone, morphine, dilaudid, etc thus far seemingly doing ok on hydrocodone but it is not relieving his pain I am uncertain what else to add for pain control for him given he is intolerant of most narcotics I placed a correpondance to Dr Sharp regarding the right foot to see if any utility in rechecking his blood flow to the right foot to ensure pain is not vascular in etiology MRI right foot pending to rule out deep tissue infection and/or osteomyelitis If pain is not vascular / ischemic in etiology, not infectious in etiology -- cause of pain?? could some of his pain be reflex sympathetic dystrophy? other? await MRI await Dr Sharp's input will ask Pain Management to see in consult for pain relief recs (2) Weakness: Plan: Multifactorial - multiple hospital admits since 04/2022. Rehab stays. Deconditioning. Depression (highly suspected and undertreated). Can't rule out [employer] event (see below). Continue OT and PT services. He will need SNF placement at discharge - family requesting such. Recheck TSH/FT4 in am. (3) Constipation: Plan: Cont senna with miralax. (4) Wound of right foot: Plan: 2 eschars noted on the right foot. Vascular surgery consultation and wound care consultation appreciated. He is receiving Betadine paint applications currently. X-ray negative for underlying osteomyelitis but he has SEVERE pain. It appears his pacer/ICD is MRI-compatible thus ordered MRI right foot - r/o osteo, etc. It is a [email or web address] device. We contacted the company and they don't have a rep that can come until next week to place the device in MRI safe mode. Will d/w Dr Thomas to see if he or Dr Hopper have the ability to help with this issue. Pain control - see #1 above. Check ESR and Crp in am. (5) Right groin wound: Plan: Previously infected right inguinal hematoma was evacuated and wound VAC is now necessary. Appreciate vascular surgery consultation and recommendations as long as wound care nursing assistance. Cont woundvac. Previously received course of IV ertapenem for ESBL Klebsiella. (6) STACY (acute kidney injury): Plan: Resolved Peak Cr 1 this admission Now 0.7 repeat BMP am (7) Failure to thrive: Plan: See #1 above Unfortunately did not tolerate mirtazapine and thus it was stopped I have asked psychiatry to weight in on options for depression - cymbalta given his severe lower extremity pain? Defer to psych cont lexapro in meantime Continue OT and PT Most recent TSH, B12, etc wnl Recheck a TSH (8) Acute encephalopathy: Plan: mostly toxic from meds - previously did not tolerate gabapentin nor remeron. both stopped. there are concerns for morphine and oxy causing toxic encephalopathy- d/c both. norco low-dose - he is tolerating this, but it is not relieving his pain see below (9) Urinary retention: Plan: s/p jeff insertion at admission urine cx was negative cont flomax HS patient requests jeff out tomorrow - reasonable to remove, tomorrow will be 7+ days since insertion thus, jeff out tomorrow for trial of void (10) Chronic systolic CHF (congestive heart failure): Plan: EF <15% cont metoprolol succ appears compensated (11) Paroxysmal atrial fibrillation: Plan: BB eliquis dig (recent level wnl) (12) LV (left ventricular) mural thrombus: Plan: history of, which then led to b/l iliac artery clots, prompting bypass surgery Dr Sharp 04/2022 cont Eliquis (13) Ischemic cardiomyopathy: Plan: no ischemic symptoms at this time compensated from volume standpoint (14) CAD (coronary artery disease): Plan: cont statin cont BB (15) AICD (automatic cardioverter/defibrillator) present: Plan: see above re: MRI-compatible device and need for MRI R foot and MRI brain (16) Depression: Plan: cont lexapro psych consult requested MRI brain if able if not able then CT head recheck a TSH level (17) Hx of subdural hematoma: Plan: noted (18) History of stroke: Plan: MRI Brain if possible Plan dispo = SNF I am very concerned about his overall lack of progress may need formal palliative care consultation will need to involve his son/daughter as he is often confused during these complicated discussions/conversations highly complex care coordination today Admission and Anticipated Discharge Date Admission Date: June 13, 2022 Subjective patient lying in bed with lights off despite it being the day time he complains of ongoing right foot / heel pain - comes/goes; he grimaces when the pain comes on he mentioned several times about "going to [place] - they can help me" I asked him what he meant and he said "they have good medical - they can figure it out" he was very tangential like previous visits, not truly answering pointed questi ons; sometimes answering a question with another question, or giving answers that don't make sense we discussed that he was making very poor progress in general NO appetite, laying in bed all day, not participating in any activities, not getting out to the chair, etc I asked him what he wanted to do given that he has been institutionalized for 6+ weeks without improvement he started mentioning heavens and "him" and that "he will take care of things - I'm not worried" I validated him and told him that having a strong scientologist easton is a good thing and will serve him well in his recovery however, I again asked him what he wanted to do - continue current care plan, switch to more palliative approach, etc he never gave a straight answer on this when asked about depression he said "I've never been depressed" asked him if he felt depressed now and again he said "I've never been depressed" reminded him that he told me yesterday that he was indeed depressed but he denied that today the conversation continued to run in circles again he mentioned going "home" (not locally, but overseas) Review of Systems Review of Systems: cv - denies chest pain, denies orthopnea pulm - denies dyspnea GI - denies pain vascular - asks for the wound vac to be "taken off tomorrow" - asks for jeff to be removed Physical Exam Physical Exam: gen - NAD, lying in bed with eyes closed initially; tangential, doesn't answer questions well, poor historian, some confusion neck - no JVD mouth - MMM heart - irregular, s1 s2, no murmur lungs - CTA b/l abd - soft NT ND BS+ ext - no edema, pulses 2+ b/l, cap refill both feet <2 sec skin - woundvac in place right groin; right foot - 2 large "punched" out circular ulcers with black eschar; largest is over the calcaneal region; medial aspect of left foot with irritated skin over medial malleolus psych - oriented to person only, confused; flat affect Results & Data Results & Data ([facility]) Vital Signs (Past 12 Hours) Vital Signs Temp Pulse Resp BP Pulse Ox O2 Del Method 06/18/22 15:06 36.5 C 99 H 18 144/77 H 98 Room Air Laboratory Results Laboratory Results - last 24 hr 06/17/22 06/18/22 06/18/22 20:35 08:05 09:01 Sodium 140 Potassium 4.2 Chloride 107 Carbon Dioxide 27 Anion Gap 6 BUN 17 Creatinine 0.75 Est Cr Clr Drug Dosing 102.0 Est GFR ( Amer) 105.5 Est GFR (Non-Af Amer) 91.0 BUN/Creatinine Ratio 22.7 H Glucose 88 POC Glucose 89 94 Calcium 8.9 06/18/22 06/18/22 11:59 17:10 Sodium Potassium Chloride Carbon Dioxide Anion Gap BUN Creatinine Est Cr Clr Drug Dosing Est GFR ( Amer) Est GFR (Non-Af Amer) BUN/Creatinine Ratio Glucose POC Glucose 105 H 187 H Calcium PG Care Time/CCT Total # of Minutes Spent Total Time Spent with Patient: Total time spent is greater than 50% in coordination of care (as documented) at patient's floor/unit and/or counseling patient: Coding Level of Care Code 91797 SUB INP/OBS CARE 3/50MIN Diagnoses Right foot pain M79.671 Weakness R53.1 Constipation K59.00 Constipation type: unspecified constipation type Wound of right foot S91.301A Right groin wound S31.109D Encounter type: subsequent encounter STACY (acute kidney injury) N17.9 Failure to thrive R62.7 Failure to thrive age range: in adult Acute encephalopathy G93.40 Urinary retention R33.9 Chronic systolic CHF (congestive heart failure) I50.22 Paroxysmal atrial fibrillation I48.0 LV (left ventricular) mural thrombus I51.3 Ischemic cardiomyopathy I25.5 CAD (coronary artery disease) I25.10 AICD (automatic cardioverter/defibrillator) present Z95.810 Depression F32.A Hx of subdural hematoma Z86.79 History of stroke Z86.73 (1) Right groin wound Encounter type: subsequent encounter Qualified Code(s): S31.109D - Unspe cified open wound of abdominal wall, unspecified quadrant without penetration into peritoneal cavity, subsequent encounter (2) Failure to thrive Failure to thrive age range: in adult Qualified Code(s): R62.7 - Adult failure to thrive (3) Constipation Constipation type: unspecified constipation type Qualified Code(s): K59.00 - Constipation, unspecified
[2022-06-18] MEDS: TAMSULOSIN HCL 0.4 MG CAP PO SCH (20:44)
[2022-06-18] MEDS: METOPROLOL SUCC 25MG EXT REL TAB PO SCH (20:46)
[2022-06-19 07:54] LABS: Basophils # (auto) 0.03 K/uL (0-0.2); Basophils % (auto) 0.3 %; Eosinophils # (auto) 0.11 K/uL (0-0.50); Eosinophils % (auto) 1.3 %; Hematocrit (blood only) 32.1 % (42.0-52.0); Hemoglobin 10.5 g/dl (14.0-18.0); Immature Granulocytes # (auto) 0.15 K/uL (0.01-0.20); Immature Granulocytes % (auto) 1.7 %; Lymphocytes % (auto) 20.5 %; Mean Corpuscular Hgb Conc 32.7 g/dL (32.0-36.0); Mean Corpuscular Volume 88.7 fL (80.0-100.0); Mean Platelet Volume 9.5 fL (9.4-12.4); Monocytes # (auto) 0.76 K/uL (0.11-0.59); Monocytes % (auto) 8.6 %; Neutrophils # (auto) 5.94 K/uL (1.40-6.50); Neutrophils % (auto) 67.6 %; Platelet Count 327 K/uL (130-400); RDW Coefficient of Variation 16.8 % (11.5-14.5); Red Blood Count 3.62 M/uL (4.70-6.10); White Blood Count 8.79 K/ul (4.8-10.8)
[2022-06-19] MEDS ORDERED: TAPENTADOL HCL 50 MG TAB PO PRN (08:56)
[2022-06-19 09:03] LABS: Calcium 8.7 mg/dl (8.5-10.1); Potassium 3.8 mmol/L (3.5-5.1)
[2022-06-19 09:09] LABS: BUN Creatinine Ratio 25.8 (10-20); C Reactive Protein 3.8 mg/dl (0-0.5); Creatinine Clr Calc Pharmacy 115.9 ml/min; Est GFR (African American) 111.2 ml/min; Est GFR (Non-African American) 95.9 ml/min
[2022-06-19] MEDS: APIXABAN 5 MG TABLET PO SCH ×2 (09:37→19:56)
[2022-06-19] MEDS: allopurinoL 100 MG TAB PO SCH (09:37)
[2022-06-19] MEDS: metFORMIN HCL 500 MG TAB PO SCH ×2 (09:37→16:25)
[2022-06-19] MEDS: FERROUS SULFATE 325 MG TAB PO SCH ×2 (09:37→16:24)
[2022-06-19] MEDS: ESCITALOPRAM OXALATE 10 MG TAB PO SCH (09:37)
[2022-06-19] MEDS: METOPROLOL SUCC 50MG EXT REL TAB PO SCH (09:37)
[2022-06-19] MEDS: ACETAMINOPHEN 325 MG TAB PO SCH ×3 (09:38→19:55)
[2022-06-19] MEDS: DOCUSATE SODIUM 100 MG CAP PO SCH ×2 (09:38→19:57)
[2022-06-19] MEDS: DOCUSATE SODIUM/SENNA 50/8.6MG TAB PO SCH ×2 (09:38→20:38)
[2022-06-19] MEDS: POLYETHYLENE (MIRALAX) 17 GM PACK PO SCH ×2 (09:38→19:56)
--- NOTE | 2022-06-19 09:38 | Pain Management Consultation ---
Date of Consultation June 19, 2022 Assessment & Plan (1) Right foot pain: (2) Neuropathic pain of foot: (3) Wound of right foot: (4) Right groin wound: Encounter type: subsequent encounter Qualified Code(s): S31.109D - Unspecified open wound of abdominal wall, unspecified quadrant without penetration into peritoneal cavity, subsequent encounter Plan 1. Pain of right ankle and foot appears to be neuropathic in nature and potentially relating to his history of peripheral vascular disease. Consider further vascular evaluation of the right lower extremity. 2. We spent a great deal of time discussing goals and treatment options. He was agreeable to a trial of Nucynta and pregabalin if it will diminish his pain and improve his ability to ambulate. We discuss potential side effects versus benefits of these medications and he verbalized understanding. 3. Will initiate Nucynta 50 mg every 4 hours as needed breakthrough pain. 4. Will initiate pregabalin 50 mg nightly x1 day then 50 mg twice daily. History of Present Illness Reason for Consultation: Right foot pain Requesting Physician: Rob Wilburn MD Attending Physician: Rob Wilburn History of Present Illness Mr. Cabrera is a 71-year-old male who has ongoing complaints of right-sided foot and ankle region pain which he describes as sharp, episodic and burning in characteristic. Patient does have wound in the right ankle and foot region. Patient's past medical history significant for CVA, subdural hematoma, CAD, ischemic cardiomyopathy, peripheral vascular disease and a right groin wound. Patient recently had debridement of right groin surgical wound and has wound VAC in place. He reports the pain in the right foot has been ongoing over the past few years but recently increased in severity. He feels this is limiting his ability to ambulate. Patient has previously tried and failed gabapentin, tramadol, oxycodone, morphine, Dilaudid. He is currently utilizing hydrocodone with minimal efficacy. It has not allowed him to provide ambulatory activities to his liking. Patient has some chronic weakness and physical deconditioning. He denies any true radicular pattern to any pain complaints. He has no axial low back pain complaint at this time. He denies any left lower extremity radicular pattern pain or left lower extremity pain complaints. Patient has rambling talk about his prior history of extensive travel and traveling back to [place] so he can "heal". Patient was initially hesitant to discuss any further medications as he feels that his treatment is reliant upon "trying this and trying that". Patient has no further constitutional complaints. Plan of care discussed with Dr. Radha Neumann. Pain Assessment Full Body Front + Back: 1. Right foot and ankle-nondermatomal Pain scale - at its best (0-10): 0 Pain scale - at its worst (0-10): 10 Allergies Allergy/AdvReac Type Severity Reaction Status Date / Time Pork/Porcine Containing AdvReac Unknown Unknown Verified 06/12/22 20:21 Products Home Medications Medication Instructions Recorded Confirmed Type metformin 500 mg tablet 500 mg PO BID #180 tabs 12/13/21 06/12/22 Rx atorvastatin 80 mg tablet 80 mg PO QPM 01/01/22 06/12/22 History spironolactone 25 mg tablet 25 mg PO QPM 01/01/22 06/12/22 History allopurinol 100 mg tablet 100 mg PO DAILY 03/21/22 06/12/22 History ropinirole 0.25 mg tablet 0.5 mg PO HS 04/30/22 06/12/22 History apixaban 5 mg tablet 5 mg PO Q12H #60 tabs 05/09/22 06/12/22 Rx tamsulosin 0.4 mg capsule 0.4 mg PO HS #20 caps 05/09/22 06/12/22 Rx acetaminophen 325 mg tablet 650 mg PO Q8H #60 tabs 05/30/22 06/12/22 Rx digoxin 125 mcg (0.125 mg) tablet 0.125 mg PO DAILY@1600 #30 tabs 05/30/2205/19 Rx (Digitek) escitalopram oxalate 10 mg tablet 10 mg PO QAM #30 tabs 05/30/22 06/12/22 Rx (Lexapro) gabapentin 100 mg capsule 100 mg PO QAM #30 caps 05/30/22 06/12/22 Rx gabapentin 300 mg capsule 300 mg PO PM #30 caps 05/30/22 06/12/22 Rx hydrocodone 7.5 mg-acetaminophen 1 tab PO Q6H PRN pain #10 tabs 05/30/22 06/12/22 Rx 325 mg tablet metoprolol succinate 100 mg 100 mg PO DAILY #30 tabs 05/30/22 06/12/22 Rx tablet,extended release 24 hr metoprolol succinate 25 mg 25 mg PO HS #30 tabs 05/30/22 06/12/22 Rx tablet,extended release 24 hr mirtazapine 7.5 mg tablet 7.5 mg PO HS #30 tabs 05/30/22 06/12/22 Rx plafzual-onn-gwyqq acid 0.4 1 tab PO QAM #30 tabs 05/30/22 06/12/22 Rx mg-lycopene 300 mcg-lutein 250 mcg tablet ([employer]) polyethylene glycol 3350 17 gram 17 g PO DAILY #30 ea 05/30/22 06/12/22 Rx oral powder packet (Miralax) sennosides 8.6 mg-docusate sodium 1 tab PO BID #60 tabs 05/30/22 06/12/22 Rx 50 mg tablet (Senokot-S) Pain History Pain Intensity Pain scale - at its best (0-10): 0 Pain scale - at its worst (0-10): 10 Patient History Medical History (Updated 06/19/22 @ 09:49 by Marlon Dimas PA-C) Acute CVA (cerebrovascular accident) Acute occlusion of aortoiliac artery STACY (acute kidney injury) Anemia Atrial fibrillation with rapid ventricular response Atrial fibrillation with rapid ventricular response CAD (coronary artery disease) Chronic systolic CHF (congestive heart failure) Depression Diabetes Elevated troponin Gout Hx of subdural hematoma Hyperlipidemia Implantable cardioverter-defibrillator (ICD) discharge Ischemic cardiomyopathy Hx CT S/P PCI and CABG LV (left ventricular) mural thrombus Neuropathic pain of foot Paroxysmal atrial fibrillation Restless leg syndrome Subarachnoid hemorrhage Urinary retention Surgical History AICD (automatic cardioverter/defibrillator) present H/O heart bypass surgery Family History Brother Diabetes Mother Hypertension Father Stroke Denies family history of Ovarian cancer Prostate cancer Myocardial infarction Breast cancer Colorectal cancer Social History Smoking Status: Never smoker Second Hand Exposure: No; Hx Alcohol Use: No Hx Substance Use: No Preferred Language: Mauritanian 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: Effective Practice Administrator Required: No Beliefs That Will Affect Care: None Current Living Situation: Family Current Living Situation Comment: lives with his and their son but came to use from [employer] current occupational status: retired Feels Safe at Home: Yes Safety Concerns: Feels Safe At This Time Physical Activity Frequency: 1-2 Times per Week Seatbelt Use: always Assistive Devices: Walker Physical Exam Physical Exam: General: Patient lying quietly in exam room in no acute distress. Patient does episodically grimace throughout the visit with right foot pain complaint. Speech and thought process appropriate. Mood and affect appropriate. Cognition intact. Frequent rambling speech. Occasionally difficult to understand. Head: Normocephalic and atraumatic. ENT: No evidence of nasal or oral mucosal lesions. Mucous membranes are moist. Eyes: Pupils equal round reactive to light. Neck: Supple without adenopathy and full range of motion. Abdomen: Soft and nondistended. No organomegaly. Bowel sounds active. Back/spine: Loss of lordosis. Nontender over the midline. No focal facet or SI joint tenderness. Nontender throughout the gluteal region. Lower extremities: Patient has wound VAC in place in the right proximal anterior thigh with some ecchymosis involving the groin bilaterally. Patient has a 1.5-2 cm ulceration over the lateral malleolus on the right without discharge. There is evidence of scabbing with some eschar present. There is similar appearance over the right heel. Patient has no hyperesthesia or allodynia. Sensation is intact. Dorsalis pedis and posterior tibial pulses were 1+. Patient has no peripheral edema or erythema. He has a large well-healed incision over the lateral anterior pretibial region. Strength testing was 5/5 with dorsi and plantarflexion as well as EHL testing. Neurologic: Cranial nerves grossly intact. Ambulatory function not witnessed.
[2022-06-19] MEDS: PREGABALIN 50 MG CAP PO SCH ×2 (09:51→19:57)
[2022-06-19] MEDS: INSULIN ASPART PER UNIT SC SCH ×4 (09:51→20:45)
[2022-06-19] MEDS: ATORVASTATIN 40 MG TAB PO SCH (13:40)
[2022-06-19] MEDS: TAPENTADOL HCL 50 MG TAB PO PRN (15:41)
--- NOTE | 2022-06-19 15:49 | Psychiatric Consultation ---
Date of Consultation June 19, 2022 Impression / Recommendations Impression 71 yo man with significant medical history including SDH, CVA, recent thrombus requiring vascular surgery and ongoing lower extremity leg wounds causing pain and history of depression admitted medically for failure to thrive and deconditioning. Diagnostically picture is complicated and unclear-there could be component of depression though he denies this and presentation is not necessary consistent with this. More likely suspect he may have ongoing waxing and waning hypoactive delirium which tends to present with decreased engagement (which can mimic social withdrawal and anhedonia of depression), apathy, decreased po intake and increased sedation though difficult to know what his cognitive baseline is as symptoms could represent advancing cognitive impairment. Could be anxiety component contributing to his hesitancy to move around independently given changes in strength and worsened pain. Given his worsening pain reasonable to consider switch from SSRI to SNRI like duloxetine while monitoring to ensure BP and HR remain stable. Unfortunately it appears duloxetine contains porcine products. Will try to investigate alternative options/generic specific with pharmacy. 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 Psychiatry consulted for recommendations regarding possible mood component to presentation and medication recommendations. Chief Complaint "I'm not depressed, one needs only have things to look forward to". History of Present Illness Jason is initially alone for the interview and later his son joins and provides additional collateral. Chart review notable for concern for worsening depression given multiple recent hospitalizations, pain, and deconditioning with decrease in engagement (hasn't been reading or watching or TV, seems to spend most of the day laying in bed not engaging with much at all), low appetite (not eating hospital food, though son reports this is due to bland spice levels and that his dad has been eating food he brings in for him) and periods of confusion. Jason has been on escitalopram since his stroke in 2021 (though he doesn't recall ever having taken this and denies any history of depression) and was on mirtazapine7.5mg HS in early May but this was stopped by his son after discharge home due to concern for excessive daytime sedation. He is intermittently oriented and per chart review has a history of delirium during prior hospitalizations which worsened with opioid use. During this admission has demonstrated periods of confusion. Today is alert and oriented though cannot recall the name of hospital and knows it is listed on his water cup. Initially says the year is 2012 but corrects to 2022 with prompting. His son feels he has not been significantly confused during this admission but rather sometimes gets briefly confused after waking from a nap and may still discuss topics from his dream but can be quickly re-oriented. It is difficult to get a detailed history as Jason frequently references more abstract past events, such as experiences he's had while traveling (i.e. 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 However even when trying to discuss these topics of interest his thought process is quite difficult to follow at times. 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 He adamantly denies feeling depressed but also struggles to speak to how he is coping with his current medical issues. Tells me he is a patient person and therefore is ok with his extended recent hospitalizations. Enjoys working on his cameras at his son's house. Jason denies any recent memory issues or depression but does acknowledge some issues with recalling past details from his trips at times but that the memory will then come to him hours or a few days later. His main goal is improved pain control as he feels this is interfering with his ability to be independent and walk around. He and his son referenced the difficulty he experienced at home due to feeling unable to walk from his bed to the bathroom due to fears he would fall and physical deconditioning. Allergies Allergy/AdvReac Type Severity Reaction Status Date / Time Pork/Porcine Containing AdvReac Unknown Unknown Verified 06/12/22 20:21 Products Home Medications Medication Instructions Recorded Confirmed Type metformin 500 mg tablet 500 mg PO BID #180 tabs 12/13/21 06/12/22 Rx atorvastatin 80 mg tablet 80 mg PO QPM 01/01/22 06/12/22 History spironolactone 25 mg tablet 25 mg PO QPM 01/01/22 06/12/22 History allopurinol 100 mg tablet 100 mg PO DAILY 03/21/22 06/12/22 History ropinirole 0.25 mg tablet 0.5 mg PO HS 04/30/22 06/12/22 History apixaban 5 mg tablet 5 mg PO Q12H #60 tabs 05/09/22 06/12/22 Rx tamsulosin 0.4 mg capsule 0.4 mg PO HS #20 caps 05/09/22 06/12/22 Rx acetaminophen 325 mg tablet 650 mg PO Q8H #60 tabs 05/30/22 06/12/22 Rx digoxin 125 mcg (0.125 mg) tablet 0.125 mg PO DAILY@1600 #30 tabs 05/30/22 06/12/22 Rx (Digitek) escitalopram oxalate 10 mg tablet 10 mg PO QAM #30 tabs 05/30/22 06/12/22 Rx (Lexapro) gabapentin 100 mg capsule 100 mg PO QAM #30 caps 05/30/22 06/12/22 Rx gabapentin 300 mg capsule 300 mg PO PM #30 caps 05/30/22 06/12/22 Rx hydrocodone 7.5 mg-acetaminophen 1 tab PO Q6H PRN pain #10 tabs 05/30/22 06/12/22 Rx 325 mg tablet metoprolol succinate 100 mg 100 mg PO DAILY #30 tabs 05/30/22 06/12/22 Rx tablet,extended release 24 hr metoprolol succinate 25 mg 25 mg PO HS #30 tabs 05/30/22 06/12/22 Rx tablet,extended release 24 hr mirtazapine 7.5 mg tablet 7.5 mg PO HS #30 tabs 05/30/22 06/12/22 Rx hqlidkhy-myp-ltdrx acid 0.4 1 tab PO QAM #30 tabs 05/30/22 06/12/22 Rx mg-lycopene 300 mcg-lutein 250 mcg tablet (Cer[employer] Senior) polyethylene glycol 3350 17 gram 17 g PO DAILY #30 ea 05/30/22 06/12/22 Rx oral powder packet (Miralax) sennosides 8.6 mg-docusate sodium 1 tab PO BID #60 tabs 05/30/22 06/12/22 Rx 50 mg tablet (Senokot-S) Patient History Medical History (Updated 06/19/22 @ 17:51 by Ella Knowles MD) Acute CVA (cerebrovascular accident) Acute occlusion of aortoiliac artery STACY (acute kidney injury) Anemia Atrial fibrillation with rapid ventricular response Atrial fibrillation with rapid ventricular response CAD (coronary artery disease) Chronic systolic CHF (congestive heart failure) Depression Diabetes Elevated troponin Gout Hx of subdural hematoma Hyperlipidemia Implantable cardioverter-defibrillator (ICD) discharge Ischemic cardiomyopathy Hx LA S/P PCI and CABG LV (left ventricular) mural thrombus Neuropathic pain of foot Paroxysmal atrial fibrillation Restless leg syndrome Subarachnoid hemorrhage Urinary retention Surgical History AICD (automatic cardioverter/defibrillator) present H/O heart bypass surgery Family History Brother Diabetes Mother Hypertension Father Stroke Denies family history of Ovarian cancer Prostate cancer Myocardial infarction Breast cancer Colorectal cancer Social History Smoking Status: Never smoker Second Hand Exposure: No; Hx Alcohol Use: No Hx Substance Use: No Preferred Language: Lao 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: Effective Process Coach Required: No Beliefs That Will Affect Care: None Current Living Situation: Family Current Living Situation Comment: lives with his and their son but came to use from [facility] current occupational status: retired Feels Safe at Home: Yes Safety Concerns: Feels Safe At This Time Physical Activity Frequency: 1-2 Times per Week Seatbelt Use: always Assistive Devices: Walker Physical Exam Psychiatric: Orientation: alert, oriented to person and oriented to place; + not oriented to time Apperance: appropriately dressed and appropriately groomed Eye Contact: + fair eye contact Motor Behavior: no abnormal motor movements Speech: normal rate/rhythm/volume of speech Affect: + constricted affect Mood: + anxious mood; no depressed mood Thought Process: + tangential thought process and + looseness of associations Thought Content: + preoccupation Suicidal Thoughts: denies suicidal thoughts Homicidal Thoughts: denies homicidal thoughts Hallucinations: no auditory hallucinations and no visual hallucinations Cognition: recent memory grossly intact (formal memory assessment not done ), remote memory grossly intact and language grossly intact; + attention not intact Insight: + limited insight Judgment: + limited judgement Vital Signs (Past 24 Hours): Last Vital Signs Temp 37.1 C 06/19/22 07:25 Pulse 88 06/19/22 07:25 Resp 16 06/19/22 07:25 BP 110/78 06/19/22 07:25 Pulse Ox 96 06/19/22 07:25 O2 Del Method 06/19/22 07:31 Review of Systems All systems reviewed & are unremarkable except as noted in HPI & below (foot and leg pain) Results & Data (PSY) Laboratory Results Na+ normal Diagnostic Findings QTc 442 ms on EKG 05/13/22 Medications Administered Acetaminophen (Acetaminophen 325 Mg Tab) 650 mg PO TID [facility] Stop: 07/17/22 20:59 Last Admin: 06/19/22 13:40 Dose: 650 mg Documented By: Admin: 06/19/22 09:38 Dose: 650 mg Documented By: Admin: 06/18/22 20:46 Dose: 650 mg Documented By: Admin: 06/18/22 14:26 Dose: Not Given Documented By: [id number] Admin: 06/18/22 08:30 Dose: 650 mg Documented By: [id number] Admin: 06/17/22 20:51 Dose: 650 mg Documented By: BENNY Allopurinol (Allopurinol 100 Mg Tab) 100 mg PO DAILY [facility] Stop: 07/13/22 08:59 Last Admin: 06/19/22 09:37 Dose: 100 mg Documented By: Admin: 06/18/22 10:03 Dose: 100 mg Documented By: [id number] Admin: 06/17/22 08:04 Dose: 100 mg Documented By: [id number] Admin: 06/16/22 08:19 Dose: 100 mg Documented By: KDHany Admin: 06/15/22 09:27 Dose: 100 mg Documented By: Admin: 06/14/22 09:40 Dose: 100 mg Documented By: Admin: 06/13/22 09:14 Dose: 100 mg Documented By: SILVIA Apixaban (Apixaban 5 Mg Tablet) 5 mg PO Q12H [facility] Stop: 07/12/22 15:59 Last Admin: 06/19/22 09:37 Dose: 5 mg Documented By: Admin: 06/18/22 20:44 Dose: 5 mg Documented By: Admin: 06/18/22 10:03 Dose: 5 mg Documented By: [id number] Admin: 06/17/22 17:17 Dose: 5 mg Documented By: [id number] Admin: 06/17/22 04:41 Dose: 5 mg Documented By: Admin: 06/16/22 15:21 Dose: 5 mg Documented By: Admin: 06/16/22 03:41 Dose: 5 mg Documented By: Admin: 06/15/22 17:06 Dose: 5 mg Documented By: Admin: 06/15/22 04:42 Dose: 5 mg Documented By: Admin: 06/14/22 16:47 Dose: 5 mg Documented By: Admin: 06/14/22 04:39 Dose: 5 mg Documented By: Admin: 06/13/22 16:42 Dose: 5 mg Documented By: Admin: 06/13/22 04:56 Dose: 5 mg Documented By: Admin: 06/12/22 18:45 Dose: 5 mg Documented By: SILVIA Atorvastatin Calcium (Atorvastatin 40 Mg Tab) 80 mg PO DAILY@1200 [facility] Stop: 07/12/22 15:44 Last Admin: 06/19/22 13:40 Dose: 80 mg Documented By: Admin: 06/18/22 13:35 Dose: 80 mg Documented By: [id number] Admin: 06/17/22 12:20 Dose: 80 mg Documented By: [id number] Admin: 06/16/22 12:38 Dose: 80 mg Documented By: Admin: 06/15/22 15:02 Dose: 80 mg Documented By: Admin: 06/14/22 12:23 Dose: 80 mg Documented By: Admin: 06/13/22 14:41 Dose: 80 mg Documented By: Admin: 06/12/22 18:43 Dose: 80 mg Documented By: SILVIA Digoxin (Digoxin 0.125 Mg Tab) 0.125 mg PO DAILY@1600 [facility] Stop: 07/12/22 15:59 Last Admin: 06/18/22 18:12 Dose: 0.125 mg Documented By: [id number] Admin: 06/17/22 17:17 Dose: 0.125 mg Documented By: [id number] Admin: 06/16/22 15:21 Dose: 0.125 mg Documented By: KDHany Admin: 06/15/22 17:07 Dose: 0.125 mg Documented By: Admin: 06/14/22 16:45 Dose: 0.125 mg Documented By: Admin: 06/13/22 16:42 Dose: 0.125 mg Documented By: Admin: 06/12/22 18:45 Dose: 0.125 mg Documented By: SILVIA Docusate Sodium (Docusate Sodium 100 Mg Cap) 100 mg PO BID [facility] Stop: 07/13/22 12:29 Last Admin: 06/19/22 09:38 Dose: Not Given Documented By: Admin: 06/18/22 20:42 Dose: 100 mg Documented By: Admin: 06/18/22 10:04 Dose: 100 mg Documented By: [id number] Admin: 06/17/22 20:53 Dose: 100 mg Documented By: Admin: 06/17/22 08:04 Dose: 100 mg Documented By: [id number] Admin: 06/16/22 20:08 Dose: 100 mg Documented By: Admin: 06/16/22 08:20 Dose: Not Given Documented By: [email or web address] Admin: 06/15/22 20:35 Dose: 100 mg Documented By: Admin: 06/15/22 09:28 Dose: 100 mg Documented By: Admin: 06/14/22 21:28 Dose: 100 mg Documented By: Admin: 06/14/22 09:41 Dose: 100 mg Documented By: Admin: 06/13/22 22:18 Dose: 100 mg Documented By: Admin: 06/13/22 14:40 Dose: 100 mg Documented By: SILVIA Escitalopram Oxalate (Escitalopram Oxalate 10 Mg Tab) 10 mg PO QAM [facility] Stop: 07/13/22 08:59 Last Admin: 06/19/22 09:37 Dose: 10 mg Documented By: Admin: 06/18/22 10:05 Dose: 10 mg Documented By: [id number] Admin: 06/17/22 08:05 Dose: 10 mg Documented By: [id number] Admin: 06/16/22 08:19 Dose: 10 mg Documented By: KDHany Admin: 06/15/22 09:29 Dose: 10 mg Documented By: Admin: 06/14/22 09:40 Dose: 10 mg Documented By: Admin: 06/13/22 09:13 Dose: 10 mg Documented By: SILVIA Ferrous Sulfate (Ferrous Sulfate 325 Mg Tab) 325 mg PO BIDM [facility] Stop: 07/16/22 16:59 Last Admin: 06/19/22 09:37 Dose: 325 mg Documented By: Admin: 06/18/22 18:13 Dose: 325 mg Documented By: [id number] Admin: 06/18/22 10:04 Dose: 325 mg Documented By: [id number] Admin: 06/17/22 17:17 Dose: 325 mg Documented By: [id number] Admin: 06/17/22 08:05 Dose: 325 mg Documented By: [id number] Admin: 06/16/22 17:44 Dose: 325 mg Documented By: KDHany Insulin Aspart (Insulin Aspart Per Unit) 0 units SC ACHS [facility] Stop: 07/12/22 16:29 Last Admin: 06/19/22 13:14 Dose: Not Given Documented By: Admin: 06/19/22 09:51 Dose: Not Given Documented By: Admin: 06/18/22 21:55 Dose: Not Given Documented By: BENNY Co-signed By: Admin: 06/18/22 18:13 Dose: Not Given Documented By: [id number] Admin: 06/18/22 13:36 Dose: Not Given Documented By: [id number] Admin: 06/18/22 09:55 Dose: Not Given Documented By: [id number] Admin: 06/17/22 21:00 Dose: Not Given Documented By: BENNY Co-signed By: [email or web address] Admin: 06/17/22 19:06 Dose: Not Given Documented By: [id number] Admin: 06/17/22 12:06 Dose: Not Given Documented By: [id number] Admin: 06/17/22 09:59 Dose: Not Given Documented By: [id number] Admin: 06/16/22 21:00 Dose: Not Given Documented By: BENNY Co-signed By: [email or web address] Admin: 06/16/22 17:43 Dose: Not Given Documented By: Admin: 06/16/22 12:40 Dose: Not Given Documented By: KDHany Admin: 06/16/22 09:13 Dose: Not Given Documented By: Admin: 06/15/22 20:36 Dose: Not Given Documented By: Admin: 06/15/22 18:32 Dose: Not Given Documented By: Admin: 06/15/22 14:21 Dose: Not Given Documented By: Admin: 06/15/22 10:14 Dose: Not Given Documented By: Admin: 06/14/22 21:03 Dose: Not Given Documented By: Admin: 06/14/22 18:15 Dose: Not Given Documented By: Admin: 06/14/22 13:01 Dose: Not Given Documented By: Admin: 06/14/22 09:35 Dose: Not Given Documented By: Admin: 06/13/22 20:55 Dose: Not Given Documented By: ROBERTA Co-signed By: Admin: 06/13/22 18:41 Dose: 2 units Documented By: SILVIA Co-signed By: [email or web address] Admin: 06/13/22 14:34 Dose: Not Given Documented By: Admin: 06/13/22 09:18 Dose: Not Given Documented By: Admin: 06/12/22 21:22 Dose: Not Given Documented By: Admin: 06/12/22 18:46 Dose: Not Given Documented By: SILVIA Metformin HCl (Metformin Hcl 500 Mg Tab) 500 mg PO BIDM [facility] Stop: 07/15/22 16:59 Last Admin: 06/19/22 09:37 Dose: 500 mg Documented By: Admin: 06/18/22 18:12 Dose: 500 mg Documented By: [id number] Admin: 06/18/22 10:03 Dose: 500 mg Documented By: [id number] Admin: 06/17/22 17:17 Dose: 500 mg Documented By: [id number] Admin: 06/17/22 09:55 Dose: 500 mg Documented By: [id number] Admin: 06/16/22 17:44 Dose: Not Given Documented By: Admin: 06/16/22 08:18 Dose: 500 mg Documented By: Admin: 06/15/22 17:12 Dose: 500 mg Documented By: MERARY Metoprolol Succinate (Metoprolol Succ 50mg Ext Rel Tab) 100 mg PO DAILY [facility] Stop: 07/13/22 08:59 Last Admin: 06/19/22 09:37 Dose: 100 mg Documented By: Admin: 06/18/22 10:03 Dose: 100 mg Documented By: [id number] Admin: 06/17/22 08:04 Dose: 100 mg Documented By: [id number] Admin: 06/16/22 08:19 Dose: 100 mg Documented By: Admin: 06/15/22 09:28 Dose: 100 mg Documented By: Admin: 06/14/22 09:41 Dose: 100 mg Documented By: Admin: 06/13/22 09:13 Dose: 100 mg Documented By: SILVIA Metoprolol Succinate (Metoprolol Succ 25mg Ext Rel Tab) 25 mg PO HS [facility] Stop: 07/12/22 20:59 Last Admin: 06/18/22 20:46 Dose: 25 mg Documented By: Admin: 06/17/22 20:52 Dose: 25 mg Documented By: Admin: 06/16/22 20:07 Dose: 25 mg Documented By: Admin: 06/15/22 20:35 Dose: 25 mg Documented By: Admin: 06/14/22 21:27 Dose: Not Given Documented By: Admin: 06/13/22 22:18 Dose: 25 mg Documented By: Admin: 06/12/22 23:40 Dose: Not Given Documented By: ROBERTA Miscellaneous (Carbohydrates For Hypoglycemia ) 15 - 30 gm PO UD PRN PRN Reason: Hypoglycemia Protocol Stop: 07/12/22 15:20 Last Admin: 06/13/22 20:52 Dose: 15 gm Documented By: ROBERTA Morphine Sulfate (Morphine Sulfate 2 Mg/Ml Carp) 2 mg IV Q3H PRN PRN Reason: Pain (breakthrough pain) Stop: 06/26/22 13:11 Last Admin: 06/17/22 09:55 Dose: 2 mg Documented By: [id number] Admin: 06/16/22 15:08 Dose: 2 mg Documented By: Admin: 06/16/22 08:08 Dose: 2 mg Documented By: Admin: 06/15/22 11:27 Dose: 2 mg Documented By: Admin: 06/14/22 13:50 Dose: 2 mg Documented By: Admin: 06/14/22 02:45 Dose: 2 mg Documented By: Admin: 06/13/22 15:41 Dose: 2 mg Documented By: SILVIA Polyethylene Glycol (Polyethylene (Miralax) 17 Gm Pack) 17 gm PO BID [facility] Stop: 07/12/22 20:59 Last Admin: 06/19/22 09:38 Dose: Not Given Documented By: Admin: 06/18/22 20:47 Dose: Not Given Documented By: Admin: 06/18/22 13:35 Dose: 17 gm Documented By: [id number] Admin: 06/17/22 20:54 Dose: Not Given Documented By: Admin: 06/17/22 08:05 Dose: 17 gm Documented By: [id number] Admin: 06/16/22 20:06 Dose: Not Given Documented By: Admin: 06/16/22 08:20 Dose: Not Given Documented By: Admin: 06/15/22 20:36 Dose: Not Given Documented By: Admin: 06/15/22 09:27 Dose: 17 gm Documented By: Admin: 06/14/22 21:26 Dose: 17 gm Documented By: Admin: 06/14/22 09:41 Dose: 17 gm Documented By: Admin: 06/13/22 22:18 Dose: 17 gm Documented By: Admin: 06/13/22 09:14 Dose: 17 gm Documented By: Admin: 06/12/22 22:25 Dose: Not Given Documented By: ROBERTA Pregabalin (Pregabalin 50 Mg Cap) 50 mg PO BID [facility] Stop: 07/19/22 08:59 Last Admin: 06/19/22 09:51 Dose: 50 mg Documented By: BARBARA Senna/Docusate Sodium (Docusate Sodium/Senna 50/8.6mg Tab) 1 tab PO BID [facility] Stop: 07/12/22 20:59 Last Admin: 06/19/22 09:38 Dose: Not Given Documented By: Admin: 06/18/22 20:42 Dose: 1 tab Documented By: Admin: 06/18/22 10:04 Dose: Not Given Documented By: [id number] Admin: 06/17/22 20:52 Dose: 1 tab Documented By: Admin: 06/17/22 11:07 Dose: Not Given Documented By: [id number] Admin: 06/16/22 20:06 Dose: Not Given Documented By: Admin: 06/16/22 08:20 Dose: Not Given Documented By: Admin: 06/15/22 20:38 Dose: 1 tab Documented By: Admin: 06/15/22 09:29 Dose: 1 tab Documented By: Admin: 06/14/22 21:34 Dose: 1 tab Documented By: Admin: 06/14/22 09:45 Dose: 1 tab Documented By: Admin: 06/13/22 20:57 Dose: 1 tab Documented By: Admin: 06/13/22 09:43 Dose: 1 tab Documented By: Admin: 06/12/22 22:24 Dose: Not Given Documented By: ROBERTA Tamsulosin HCl (Tamsulosin Hcl 0.4 Mg Cap) 0.4 mg PO HS [facility] Stop: 07/12/22 20:59 Last Admin: 06/18/22 20:44 Dose: 0.4 mg Documented By: Admin: 06/17/22 20:53 Dose: 0.4 mg Documented By: Admin: 06/16/22 20:07 Dose: 0.4 mg Documented By: Admin: 06/15/22 20:35 Dose: 0.4 mg Documented By: Admin: 06/14/22 21:27 Dose: 0.4 mg Documented By: Admin: 06/13/22 20:57 Dose: 0.4 mg Documented By: Admin: 06/12/22 23:40 Dose: Not Given Documented By: ROBERTA Tapentadol (Tapentadol Hcl 50 Mg Tab) 75 mg PO Q4H PRN PRN Reason: Pain Stop: 07/03/22 15:11 Last Admin: 06/19/22 15:41 Dose: 75 mg Documented By: BARBARA Coding Level of Care Code INP/OBS CONSULT LVL 4, 60 MIN Diagnoses Depression F32.A Anxiety F41.9 Neuropathic pain of foot M79.2 History of stroke Z86.73 Hx of subdural hematoma Z86.79 Weakness R53.1
[2022-06-19] MEDS: DIGOXIN 0.125 MG TAB PO SCH (16:24)
[2022-06-19] MEDS: METOPROLOL SUCC 25MG EXT REL TAB PO SCH (19:58)
[2022-06-19] MEDS: TAMSULOSIN HCL 0.4 MG CAP PO SCH (19:58)
--- NOTE | 2022-06-19 22:20 | Hospitalist Progress Note ---
Date of Service June 19, 2022 Assessment & Plan (1) Right foot pain: Plan: several weeks ago during his previous admission for right groin infection/hematoma and washout / I&D of such he had SEVERE right foot pain (and some left foot pain too) during that hospitalization it was suspected to be neuropathic in etiology and gabapentin was tried unfortunately he did not tolerate gabapentin and it was stopped he has been intolerant of multiple narcotics including tramadol, oxycodone, morphine, dilaudid, etc tolerated hydrocodone but it did not relieve his pain I am uncertain what else to add for pain control for him given he is intolerant of most narcotics I placed a correspondence to Dr Sharp regarding the right foot to see if any utility in rechecking his blood flow to the right foot to ensure pain is not vascular in etiology MRI right ankle/foot pending to rule out deep tissue infection and/or osteomyelitis If pain is not vascular / ischemic in etiology, not infectious in etiology -- cause of pain?? could some of his pain be reflex sympathetic dystrophy? sed rate of 100 noted - again await MRIs to rule out osteo appreciate Pain Management consult for pain relief recs (2) Weakness: Plan: Multifactorial - multiple hospital admits since 04/2022. Rehab stays. Deconditioning. Depression (highly suspected and undertreated). 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 Continue OT and PT services. He will need SNF placement at discharge. TSH wnl. (3) Constipation: Plan: Cont senna with miralax. resolved. (4) Wound of right foot: Plan: 2 eschars noted on the right foot. Vascular surgery consultation and wound care consultation appreciated. He is receiving Betadine paint applications currently. X-ray negative for underlying osteomyelitis but he has SEVERE pain. It appears his pacer/ICD is MRI-compatible thus ordered MRI right foot - r/o osteo, etc. It is a [employer] device. I discussed this with Dr Thomas and he will coordinate the MRIs with his pacemaker and setting the device in MRI safe-mode. Pain control - see #1 above. ESR noted. CRP noted. Await studies. (5) Right groin wound: Plan: Improving. Previously infected right inguinal hematoma was evacuated and wound VAC is now necessary. Appreciate vascular surgery consultation and recommendations as long as wound care nursing assistance. Cont woundvac. Previously received course of IV ertapenem for ESBL Klebsiella. (6) STACY (acute kidney injury): Plan: Resolved Peak Cr 1 this admission Now 0.7 repeat BMP am (7) Failure to thrive: Plan: See #1 above Unfortunately did not tolerate mirtazapine and thus it was stopped I have asked psychiatry to weight in on options for depression - they agree with cymbalta cont lexapro in meantime Continue OT and PT Most recent TSH, B12, etc wnl repeat TSH wnl (8) Acute encephalopathy: Plan: mostly toxic from meds - previously did not tolerate gabapentin nor remeron. both stopped. there are concerns for morphine and oxy causing toxic encephalopathy- d/c both. norco low-dose - he was tolerating this, but it did not relieve his pain MRI brain ordered - r/o subacute CVA, etc. (9) Urinary retention: Plan: s/p jeff insertion at admission urine cx was negative cont flomax HS patient requested jeff out -- this was removed today, ?did not void since? I discussed with nursing - they will follow carefully and perform bladder scan if any retention - replace the jeff (10) Chronic systolic CHF (congestive heart failure): Plan: EF <15% cont metoprolol succ appears compensated (11) Paroxysmal atrial fibrillation: Plan: BB clariceis dig (recent level wnl) (12) LV (left ventricular) mural thrombus: Plan: history of, which then led to b/l iliac artery clots, prompting bypass surgery Dr Sharp 04/2022 cont Eliquis (13) Ischemic cardiomyopathy: Plan: no ischemic symptoms at this time compensated from volume standpoint (14) CAD (coronary artery disease): Plan: cont statin cont BB (15) AICD (automatic cardioverter/defibrillator) present: Plan: see above re: MRI-compatible device and need for MRI R foot and MRI brain (16) Depression: Plan: cont lexapro psych consult appreciated (17) Hx of subdural hematoma: Plan: noted (18) History of stroke: Plan: MRI Brain if possible tomorrow AM for such Plan dispo = SNF I am very concerned about his overall lack of progress may need formal palliative care consultation I spoke with his son this evening - gave him update regarding consults, the MRIs planned for the AM, etc. care d/w psych, cardiology Admission and Anticipated Discharge Date Admission Date: June 13, 2022 Subjective patient resting in bed during my visit offered no new complaints right foot pain is some better s/p nucynta this afternoon NO PO intake today he talks about eating dates but he has not had any in his room in some time very minimal liquid intake since removing jeff this am he has not voided nursing to perform bladder scan Review of Systems Review of Systems: cv - no chest pain pulm - no dyspnea GI - had bowel movement today Physical Exam Physical Exam: gen - NAD, lying in bed with eyes closed initially but easily woke up neck - no JVD mouth - MM a little dry heart - irregular, s1 s2, no murmur lungs - CTA b/l abd - soft NT ND BS+ ext - no edema, pulses 2+ b/l, cap refill both feet <2 sec skin - woundvac in place right groin; right foot - 2 large "punched" out circular ulcers with black eschar - no change in appearance; largest is over the calcaneal region; medial aspect of left foot with irritated skin over medial malleolus - slightly worse today psych - oriented to person / place today Results & Data Results & Data ([facility]) Vital Signs (Past 12 Hours) Vital Signs Temp Pulse Resp BP Pulse Ox O2 Del Method 06/19/22 19:50 36.6 C 77 14 121/72 93 Room Air 06/19/22 15:50 36.6 C 92 H 16 109/58 L 97 Room Air Laboratory Results Laboratory Results - last 24 hr 06/19/22 06/19/22 06/19/22 07:14 07:14 07:14 WBC 8.79 RBC 3.62 L Hgb 10.5 L Hct 32.1 L MCV 88.7 MCH 29.0 MCHC 32.7 RDW Std Deviation 54.0 H RDW Coeff of Moriah 16.8 H Plt Count 327 MPV 9.5 Immature Gran % (Auto) 1.7 Neut % (Auto) 67.6 Lymph % (Auto) 20.5 Lander % (Auto) 8.6 Eos % (Auto) 1.3 Baso % (Auto) 0.3 Neut # (Auto) 5.94 Lymph # (Auto) 1.80 Lander # (Auto) 0.76 H Eos # (Auto) 0.11 Baso # (Auto) 0.03 Immature Gran # (Auto) 0.15 ESR 101 H Sodium 141 Potassium 3.8 Chloride 108 H Carbon Dioxide 26 Anion Gap 7 BUN 17 Creatinine 0.66 Est Cr Clr Drug Dosing 115.9 Est GFR ( Amer) 111.2 Est GFR (Non-Af Amer) 95.9 BUN/Creatinine Ratio 25.8 H Glucose 92 POC Glucose Calcium 8.7 C-Reactive Protein 3.80 H TSH 06/19/22 06/19/22 06/19/22 07:14 09:48 12:06 WBC RBC Hgb Hct MCV MCH MCHC RDW Std Deviation RDW Coeff of [place] Plt Count MPV Immature Gran % (Auto) Neut % (Auto) Lymph % (Auto) Lander % (Auto) Eos % (Auto) Baso % (Auto) Neut # (Auto) Lymph # (Auto) Lander # (Auto) Eos # (Auto) Baso # (Auto) Immature Gran # (Auto) ESR Sodium Potassium Chloride Carbon Dioxide Anion Gap BUN Creatinine Est Cr Clr Drug Dosing Est GFR ( Amer) Est GFR (Non-Af Amer) BUN/Creatinine Ratio Glucose POC Glucose 94 89 Calcium C-Reactive Protein TSH 3.072 06/19/22 06/19/22 16:59 20:38 WBC RBC Hgb Hct MCV MCH MCHC RDW Std Deviation RDW Coeff of [place]iah Plt Count MPV Immature Gran % (Auto) Neut % (Auto) Lymph % (Auto) Lander % (Auto) Eos % (Auto) Baso % (Auto) Neut # (Auto) Lymph # (Auto) Lander # (Auto) Eos # (Auto) Baso # (Auto) Immature Gran # (Auto) ESR Sodium Potassium Chloride Carbon Dioxide Anion Gap BUN Creatinine Est Cr Clr Drug Dosing Est GFR ( Amer) Est GFR (Non-Af Amer) BUN/Creatinine Ratio Glucose POC Glucose 93 77 Calcium C-Reactive Protein TSH PG Care Time/CCT Total # of Minutes Spent Total Time Spent with Patient: Total time spent is greater than 50% in coordination of care (as documented) at patient's floor/unit and/or counseling patient: Coding Level of Care Code 73845 SUB INP/OBS CARE 3/50MIN Diagnoses Right foot pain M79.671 Weakness R53.1 Constipation K59.00 Constipation type: unspecified constipation type Wound of right foot S91.301A Right groin wound S31.109D Encounter type: subsequent encounter STACY (acute kidney injury) N17.9 Failure to thrive R62.7 Failure to thrive age range: in adult Acute encephalopathy G93.40 Urinary retention R33.9 Chronic systolic CHF (congestive heart failure) I50.22 Paroxysmal atrial fibrillation I48.0 LV (left ventricular) mural thrombus I51.3 Ischemic cardiomyopathy I25.5 CAD (coronary artery disease) I25.10 AICD (automatic cardioverter/defibrillator) present Z95.810 Depression F32.A Hx of subdural hematoma Z86.79 History of stroke Z86.73 (1) Right groin wound Encounter type: subsequent encounter Qualified Code(s): S31.109D - Unspecified open wound of abdominal wall, unspecified quadrant without penetrat ion into peritoneal cavity, subsequent encounter (2) Failure to thrive Failure to thrive age range: in adult Qualified Code(s): R62.7 - Adult failure to thrive (3) Constipation Constipation type: unspecified constipation type Qualified Code(s): K59.00 - Constipation, unspecified
[2022-06-20] MEDS: TAPENTADOL HCL 50 MG TAB PO PRN ×4 (07:51→20:58)
[2022-06-20] MEDS: ACETAMINOPHEN 325 MG TAB PO SCH ×3 (09:20→20:34)
[2022-06-20] MEDS: metFORMIN HCL 500 MG TAB PO SCH ×2 (09:20→16:35)
[2022-06-20] MEDS: DOCUSATE SODIUM 100 MG CAP PO SCH ×2 (09:21→20:34)
[2022-06-20] MEDS: FERROUS SULFATE 325 MG TAB PO SCH ×2 (09:21→16:34)
[2022-06-20] MEDS: APIXABAN 5 MG TABLET PO SCH ×2 (09:21→20:35)
[2022-06-20] MEDS: ESCITALOPRAM OXALATE 10 MG TAB PO SCH (09:22)
[2022-06-20] MEDS: allopurinoL 100 MG TAB PO SCH (09:22)
[2022-06-20] MEDS: METOPROLOL SUCC 50MG EXT REL TAB PO SCH (09:22)
[2022-06-20] MEDS: POLYETHYLENE (MIRALAX) 17 GM PACK PO SCH ×3 (09:23→20:47)
[2022-06-20] MEDS: INSULIN ASPART PER UNIT SC SCH ×4 (09:24→21:01)
--- NOTE | 2022-06-20 09:26 | Magnetic Resonance Report ---
MR foot RT w/o con HISTORY: Chronic foot pain with skin ulcerations, largest R heel; eval osteomyelitis TECHNIQUE: Multiplanar multisequence MRI of the right forefoot was performed without contrast accordi ng to standard departmental protocol. COMPARISON STUDY: Right foot radiograph 06/12/2022. FINDINGS: Significant motion artifact results in difficult evaluation of the forefoot. There is no de finite fracture or dislocation. Coronal and sagittal STIR sequences are nondiagnostic. No definite ab normal signal intensity or destructive changes to suggest an osteomyelitis. No loculated fluid collec tions to suggest an abscess. Soft tissue edema within the plantar muscles could be due to chronic justino ma or denervation injury. IMPRESSION: Near nondiagnostic evaluation of the right forefoot. No definite fracture or evidence for osteomyelit is. ACT 112: Negative or not required by law. Electronically signed by: Aris Clayton M.D. 06/20/2022 9:24 AM
[2022-06-20] MEDS: DOCUSATE SODIUM/SENNA 50/8.6MG TAB PO SCH ×2 (09:28→20:46)
[2022-06-20] MEDS: PREGABALIN 50 MG CAP PO SCH ×2 (09:28→20:46)
[2022-06-20 11:23] LABS: BUN Creatinine Ratio 29.2 (10-20); Calcium 8.8 mg/dl (8.5-10.1); Creatinine Clr Calc Pharmacy 106.2 ml/min; Est GFR (African American) 107.3 ml/min; Est GFR (Non-African American) 92.5 ml/min; Potassium 3.7 mmol/L (3.5-5.1)
--- NOTE | 2022-06-20 11:55 | Magnetic Resonance Report ---
MRI OF THE RIGHT ANKLE/HINDFOOT WITHOUT CONTRAST CLINICAL HISTORY: Heel ulcer. Evaluate for osteomyelitis. COMPARISON STUDY: Right ankle and right foot radiographs June 12, 2022. TECHNIQUE: Utilizing a 1.5 Diana magnet and dedicated coil, multiplanar, multiecho imaging of the rig ht ankle and hindfoot was performed without intravenous contrast. FINDINGS: Please note that the MRI of the right forefoot will be reported separately. This exam is mo derately compromised by motion artifact. Note is made of a wound of the lateral right heel. No associ ated fluid collection is identified to suggest abscess. There is no definite marrow signal abnormalit y to suggest acute osteomyelitis. Patchy increased marrow signal is noted within visualized osseous s tructures. Achilles tendon is intact. No mass or fluid collection is identified within the right ankl e hindfoot. Talar dome is grossly intact. Visualized portions of the flexor, extensor and peroneal te ndons are grossly unremarkable. IMPRESSION: 1. Exam moderately compromised by motion artifact. 2. Lateral right heel wound. No definite evidence for acute osteomyelitis. No fluid collection to sug gest abscess. ACT 112: Negative or not required by law. Electronically signed by: Dami Gongora M.D. 06/20/2022 11:53 AM
[2022-06-20] MEDS: ATORVASTATIN 40 MG TAB PO SCH (11:57)
[2022-06-20] MEDS: DIGOXIN 0.125 MG TAB PO SCH (16:32)
[2022-06-20] MEDS: CARBOHYDRATES FOR HYPOGLYCEMIA PO PRN ×2 (17:10→17:44)
[2022-06-20] MEDS: METOPROLOL SUCC 25MG EXT REL TAB PO SCH (20:33)
[2022-06-20] MEDS: TAMSULOSIN HCL 0.4 MG CAP PO SCH (20:33)
--- NOTE | 2022-06-20 21:01 | Hospitalist Progress Note ---
Date of Service June 20, 2022 Assessment & Plan (1) Right foot pain: Plan: felt to be neuropathic in etiology meds tried - gabapentin, tramadol, oxycodone, morphine, dilaudid - intolerant of all of these (sedation, confusion, etc) tolerated hydrocodone but it did not relieve his pain pain management saw patient in consult - recommended lyrica 50mg BID + nucynta prn thus far tolerating both MRI right foot and ankle were completed today appreciate cardiology assistance for this (due to pacemaker) no evidence of osteomyelitis no evidence of abscess no fracture on the MRI foot there was "Soft tissue edema within the plantar muscles could be due to chronic edema or denervation injury." this finding would support that his pain is indeed neuropathic. I suspect that when he developed his acute b/l iliac artery thromboses he had ischemia to the distal legs and likely had an ischemic insult to one of his nerves in the right leg. Suspect either peroneal nerve injury or tibial nerve injury. Remains to be seen if he will have recovery from this. Sed rate noted to be 100, but CRP is not correspondingly high. These will need to be repeated in the next few days. (2) Weakness: Plan: Multifactorial - multiple hospital admits since 04/2022. Rehab stays, Deconditioning, suspected depression, etc likely all contributed. 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 Continue OT and PT as tolerated but rehab potential is limited at best. He will need SNF placement at discharge. TSH wnl. (3) Constipation: Plan: Cont senna with miralax for maintenance. (4) Wound of right foot: Plan: 2 eschars noted on the right foot. Vascular surgery consultation and wound care consultation appreciated. He is receiving Betadine paint applications currently. X-ray negative for underlying osteomyelitis. MRI foot/ankle negative for osteomyelitis or deep tissue infection. See above re: pain control. ESR noted. CRP noted. (5) Right groin wound: Plan: Improving. Previously infected right inguinal hematoma was evacuated (05/21/22) and wound VAC has been present since then. Appreciate vascular surgery consultation and recommendations along with wound care nursing assistance. Cont woundvac. Previously received course of IV ertapenem for ESBL Klebsiella. (6) STACY (acute kidney injury): Plan: Resolved Peak Cr 1 this admission Now 0.7 repeat BMP am for stability. (7) Failure to thrive: Plan: See #1 above Unfortunately did not tolerate mirtazapine and thus it was stopped I have asked psychiatry to weight in on options for depression - they recommend cymbalta cont lexapro in meantime Continue OT and PT Most recent TSH, B12, etc wnl repeat TSH wnl (8) Acute encephalopathy: Plan: mostly toxic from meds - previously did not tolerate gabapentin nor remeron. both stopped. there are concerns for morphine and oxy causing toxic encephalopathy- d/c both. norco low-dose - he was tolerating this, but it did not relieve his pain MRI brain ordered but could not tolerate additional imaging beyond his MRI R foot/ankle Previous CT head with old findings but nothing acute does patient have baseline cognitive impairment? I am suspicious he does (9) Urinary retention: Plan: s/p jeff insertion at admission urine cx was negative remains on flomax HS patient requested jeff out -- this was removed yesterday and he did not void thus - jeff placed back (10) Chronic systolic CHF (congestive heart failure): Plan: EF <15% cont metoprolol succ appears compensated (11) Paroxysmal atrial fibrillation: Plan: BB eliquis dig (recent level wnl) (12) LV (left ventricular) mural thrombus: Plan: history of, which then led to b/l iliac artery clots, prompting bypass surgery Dr Sharp 04/2022 cont Eliquis (13) Ischemic cardiomyopathy: Plan: no ischemic symptoms at this time compensated from volume standpoint (14) CAD (coronary artery disease): Plan: cont statin cont BB (15) AICD (automatic cardioverter/defibrillator) present: Plan: appreciate Dr Thomas's assistance re: placing pacer/ICD in MRI safe mode and coordinating with radiology (16) Depression: Plan: cont lexapro psych consult appreciated possible addition of cymbalta (17) Hx of subdural hematoma: Plan: noted (18) History of stroke: Plan: MRI Brain attempted today w/o success Plan dispo - SNF I am very concerned about his overall lack of progress may need formal palliative care consultation soon if his appetite and failure to thrive does not improve son updated yesterday by phone daughter updated briefly at bedside poor prognosis Admission and Anticipated Discharge Date Admission Date: June 13, 2022 Subjective jfef catheter ultimately needed to be placed back during my visit patient was lying in bed he reports that his right ankle/right distal leg pain is improved mental status today - he thought he was at a fdc home; thought it was May; did get the year right (2022) no new issues appetite remains poor - 0% meal consumption at breakfast and lunch; did eat some dinner per nursing flowsheets Review of Systems Review of Systems: gen - fatigue, poor appetite cv - no chest pain, no orthopnea pulm - no dyspnea GI - no abd pain; did have BM today - jeff has been put back in; UOP poor neuro - neuropathic pain right ankle is improved Physical Exam Physical Exam: gen - NAD, lying in bed neck - no JVD mouth - MM dry heart - irregular, s1 s2, no murmur lungs - CTA b/l abd - soft NT ND BS+ ext - no edema, pulses 2+ b/l, cap refill both feet <2 sec skin - woundvac in place right groin; right foot - 2 large "punched" out circular ulcers with black eschar - no change in appearance; largest is over the calcaneal region; medial aspect of left foot with irritated skin over medial malleolus - same as yesterday psych - oriented to person and year but not place; tangential, shifting from topic to topic Results & Data Results & Data ([facility]) Vital Signs (Past 12 Hours) Vital Signs Temp Pulse Pulse Pulse Resp BP BP 06/20/22 20:47 36.5 C 80 18 127/77 06/20/22 16:32 88 06/20/22 14:32 36.8 C 85 16 115/67 06/20/22 10:23 89 109/72 06/20/22 09:59 36.6 C 103 H 16 105/69 06/20/22 09:32 Pulse Ox O2 Del Method 06/20/22 20:47 97 Room Air 06/20/22 16:32 06/20/22 14:32 95 Room Air 06/20/22 10:23 95 Room Air 06/20/22 09:59 93 Room Air 06/20/22 09:32 Room Air Laboratory Results Laboratory Results - last 24 hr 06/20/22 06/20/22 06/20/22 09:12 09:18 12:18 Sodium 141 Potassium 3.7 Chloride 107 Carbon Dioxide 25 Anion Gap 9 BUN 21 Creatinine 0.72 Est Cr Clr Drug Dosing 106.2 Est GFR ( Amer) 107.3 Est GFR (Non-Af Amer) 92.5 BUN/Creatinine Ratio 29.2 H Glucose 89 POC Glucose 87 79 Calcium 8.8 06/20/22 06/20/22 06/20/22 17:03 17:03 17:04 Sodium Potassium Chloride Carbon Dioxide Anion Gap BUN Creatinine Est Cr Clr Drug Dosing Est GFR ( Amer) Est GFR (Non-Af Amer) BUN/Creatinine Ratio Glucose POC Glucose 55 L* 55 L* 64 L* Calcium 06/20/22 06/20/22 06/20/22 17:35 17:42 18:21 Sodium Potassium Chloride Carbon Dioxide Anion Gap BUN Creatinine Est Cr Clr Drug Dosing Est GFR ( Amer) Est GFR (Non-Af Amer) BUN/Creatinine Ratio Glucose POC Glucose 61 L* 69 L* 84 Calcium 06/20/22 20:30 Sodium Potassium Chloride Carbon Dioxide Anion Gap BUN Creatinine Est Cr Clr Drug Dosing Est GFR ( Amer) Est GFR (Non-Af Amer) BUN/Creatinine Ratio Glucose POC Glucose 82 Calcium Diagnostic Findings Foot MRI 06/20/22 07:52 MR foot RT w/o con HISTORY: Chronic foot pain with skin ulcerations, largest R heel; eval osteomyelitis TECHNIQUE: Multiplanar multisequence MRI of the right forefoot was performed without contrast according to standard departmental protocol. COMPARISON STUDY: Right foot radiograph 06/12/2022. FINDINGS: Significant motion artifact results in difficult evaluation of the forefoot. There is no definite fracture or dislocation. Coronal and sagittal STIR sequences are nondiagnostic. No definite abnormal signal intensity or destructive changes to suggest an osteomyelitis. No loculated fluid collections to suggest an abscess. Soft tissue edema within the plantar muscles could be due to chronic edema or denervation injury. IMPRESSION: Near nondiagnostic evaluation of the right forefoot. No definite fracture or evidence for osteomyelitis. ACT 112: Negative or not required by law. Electronically signed by: Aris Clayton M.D. 06/20/2022 9:24 AM Ankle MRI 06/20/22 07:59 MRI OF THE RIGHT ANKLE/HINDFOOT WITHOUT CONTRAST CLINICAL HISTORY: Heel ulcer. Evaluate for osteomyelitis. COMPARISON STUDY: Right ankle and right foot radiographs June 12, 2022. TECHNIQUE: Utilizing a 1.5 Diana magnet and dedicated coil, multiplanar, multiecho imaging of the right ankle and hindfoot was performed without intravenous contrast. FINDINGS: Please note that the MRI of the right forefoot will be reported separately. This exam is moderately compromised by motion artifact. Note is made of a wound of the lateral right heel. No associated fluid collection is ident ified to suggest abscess. There is no definite marrow signal abnormality to suggest acute osteomyelitis. Patchy increased marrow signal is noted within visualized osseous structures. Achilles tendon is intact. No mass or fluid collection is identified within the right ankle hindfoot. Talar dome is grossly intact. Visualized portions of the flexor, extensor and peroneal tendons are grossly unremarkable. IMPRESSION: 1. Exam moderately compromised by motion artifact. 2. Lateral right heel wound. No definite evidence for acute osteomyelitis. No fluid collection to suggest abscess. ACT 112: Negative or not required by law. Electronically signed by: Dami Gongora M.D. 06/20/2022 11:53 AM PG Care Time/CCT Total # of Minutes Spent Total Time Spent with Patient: Total time spent is greater than 50% in coordination of care (as documented) at patient's floor/unit and/or counseling patient: Coding Level of Care Code 45630 SUB INP/OBS CARE 235MIN Diagnoses Right foot pain M79.671 Weakness R53.1 Constipation K59.00 Constipation type: unspecified constipation type Wound of right foot S91.301A Right groin wound S31.109D Encounter type: subsequent encounter STACY (acute kidney injury) N17.9 Failure to thrive R62.7 Failure to thrive age range: in adult Acute encephalopathy G93.40 Urinary retention R33.9 Chronic systolic CHF (congestive heart failure) I50.22 Paroxysmal atrial fibrillation I48.0 LV (left ventricular) mural thrombus I51.3 Ischemic cardiomyopathy I25.5 CAD (coronary artery disease) I25.10 AICD (automatic cardioverter/defibrillator) present Z95.810 Depression F32.A Hx of subdural hematoma Z86.79 History of stroke Z86.73 (1) Right groin wound Encounter type: subsequent encounter Qualified Code(s): S31.109D - Unspecified open wound of abdominal wall, unspecified quadrant without penetration into peritoneal cavity, subsequent encounter (2) Failure to thrive Failure to thrive age range: in adult Qualified Code(s): R62.7 - Adult failure to thrive (3) Constipation Constipation type: unspecified constipation type Qualified Code(s): K59.00 - Constipation, unspecified
[2022-06-21] MEDS: TAPENTADOL HCL 50 MG TAB PO PRN ×3 (06:29→18:12)
[2022-06-21] MEDS: POLYETHYLENE (MIRALAX) 17 GM PACK PO SCH ×2 (09:33→21:01)
[2022-06-21] MEDS: INSULIN ASPART PER UNIT SC SCH ×4 (09:33→21:25)
[2022-06-21] MEDS: allopurinoL 100 MG TAB PO SCH (09:37)
[2022-06-21] MEDS: metFORMIN HCL 500 MG TAB PO SCH (09:37)
[2022-06-21] MEDS: ESCITALOPRAM OXALATE 10 MG TAB PO SCH (09:38)
[2022-06-21] MEDS: FERROUS SULFATE 325 MG TAB PO SCH ×2 (09:38→18:12)
[2022-06-21] MEDS: METOPROLOL SUCC 50MG EXT REL TAB PO SCH (09:38)
[2022-06-21] MEDS: ACETAMINOPHEN 325 MG TAB PO SCH ×3 (09:39→21:00)
[2022-06-21] MEDS: DOCUSATE SODIUM 100 MG CAP PO SCH ×2 (09:39→21:01)
[2022-06-21] MEDS: APIXABAN 5 MG TABLET PO SCH ×2 (09:40→21:01)
[2022-06-21] MEDS: DOCUSATE SODIUM/SENNA 50/8.6MG TAB PO SCH ×2 (09:42→21:08)
[2022-06-21] MEDS: PREGABALIN 50 MG CAP PO SCH ×2 (09:42→21:08)
[2022-06-21] MEDS: ATORVASTATIN 40 MG TAB PO SCH (12:51)
[2022-06-21] MEDS: DIGOXIN 0.125 MG TAB PO SCH (16:31)
[2022-06-21] MEDS: TAMSULOSIN HCL 0.4 MG CAP PO SCH (21:01)
[2022-06-21] MEDS: METOPROLOL SUCC 25MG EXT REL TAB PO SCH (21:02)
--- NOTE | 2022-06-21 22:14 | Hospitalist Progress Note ---
Date of Service June 21, 2022 Assessment & Plan (1) Right foot pain: Plan: felt to be neuropathic in etiology meds tried - gabapentin, tramadol, oxycodone, morphine, dilaudid - intolerant of all of these (sedation, confusion, etc) tolerated hydrocodone but it did not relieve his pain pain management saw patient in consult - recommended lyrica 50mg BID + nucynta prn thus far tolerating both and both seem to be helping his pain no significant sedation from either MRI right foot and ankle were completed yesterday appreciate cardiology assistance for this (due to presence of pacemaker) MRI ankle/foot - no evidence of osteomyelitis no evidence of abscess no fracture on the MRI foot there was "Soft tissue edema within the plantar muscles could be due to chronic edema or denervation injury." this finding would support that his pain is indeed neuropathic. I suspect that when he developed his acute b/l iliac artery thromboses he had ischemia to the distal legs and likely had an ischemic insult to one of his nerves in the right leg. Suspect either peroneal nerve injury or tibial nerve injury. Remains to be seen if he will have recovery from this. Sed rate noted to be 100, but CRP is not correspondingly high (3.8). Will repeat in am. Finally - since he is tolerating the nucynta, will plan to start nycynta ER 50mg BID to start. (2) Weakness: Plan: Multifactorial - multiple hospital admits since 04/2022. Rehab stays, Deconditioning, suspected depression, etc likely all contributed. 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 Continue OT and PT as tolerated but rehab potential is limited at best. He will need SNF placement at discharge unless hospice is pursued by pt & his children. TSH wnl. (3) Constipation: Plan: Cont senna with miralax for maintenance. (4) Wound of right foot: Plan: 2 eschars noted on the right foot. Vascular surgery consultation and wound care consultation appreciated. He is receiving Betadine paint applications curren tly. X-ray negative for underlying osteomyelitis. MRI foot/ankle negative for osteomyelitis or deep tissue infection. See above re: pain control. ESR noted. CRP noted. Wounds today are clean. (5) Right groin wound: Plan: Improving with woundvac. Previously infected right inguinal hematoma was evacuated (05/21/22) and wound VAC has been present since then. Appreciate vascular surgery consultation and recommendations along with wound care nursing assistance. Cont woundvac. Previously received course of IV ertapenem for ESBL Klebsiella. (6) STACY (acute kidney injury): Plan: Resolved Peak Cr 1 this admission. recent Cr's have been stable. (7) Failure to thrive: Plan: SEVERE 30+ pounds of weight loss over the last 6 weeks See #1 above Unfortunately did not tolerate mirtazapine and thus it was stopped I have asked psychiatry to weight in on options for depression - they recommend cymbalta Will d/w family but I would be in favor of starting it cont lexapro in meantime Continue OT and PT as tolerated Most recent TSH, B12, etc wnl repeat TSH wnl (8) Acute encephalopathy: Plan: mostly toxic from meds - previously did not tolerate gabapentin nor remeron. both stopped. there are concerns for morphine and oxy causing toxic encephalopathy- d/c both. norco low-dose - he was tolerating this, but it did not relieve his pain MRI brain ordered but could not tolerate additional imaging beyond his MRI R foot/ankle Previous CT head with old findings but nothing acute suspect he has baseline cognitive impairment from multiple brain injuries including SDH, strokes, etc. (9) Urinary retention: Plan: s/p jeff insertion at admission urine cx was negative remains on flomax HS patient requested jeff out -- this was removed 2 days ago and he did not void thus - jeff placed back family had asked about finasteride for his prostate - certainly can add it, but it takes several months for it to be effective (10) Chronic systolic CHF (congestive heart failure): Plan: EF <15% cont metoprolol succ appears compensated or volume contracted (11) Paroxysmal atrial fibrillation: Plan: BB eliquis dig (recent level wnl) (12) LV (left ventricular) mural thrombus: Plan: history of, which then led to b/l iliac artery clots, prompting bypass surgery Dr Sharp 04/2022 cont Eliquis (13) Ischemic cardiomyopathy: Plan: no ischemic symptoms at this time compensated from volume standpoint (14) CAD (coronary artery disease): Plan: cont statin cont BB (15) AICD (automatic cardioverter/defibrillator) present: Plan: appreciate Dr Thomas's assistance re: placing pacer/ICD in MRI safe mode and coordinating with radiology (16) Depression: Plan: cont lexapro psych consult appreciated possible addition of cymbalta (17) Hx of subdural hematoma: Plan: noted (18) History of stroke: Plan: MRI Brain attempted w/o success (19) Severe protein-calorie malnutrition: Plan: 17-18kg weight loss since April severe failure to thrive eating/drinking very little in bed nearly all day ordered Boost BID but doubt he will drink such ordered MVI daily check cortisol level am previous imaging of gall bladder showed distended gall bladder but no other feat ures of acute cholecystitis doubt GB disease contributing to current picture has NO abdominal complaints (20) Prediabetes: Plan: a1c 6.1% stop metformin stop BSG checks Plan dispo - SNF I am very concerned about his overall lack of progress may need formal palliative care consultation soon if his appetite and failure to thrive does not improve called and left message for daughter this evening asked that we meet as a group on Thursday (pt, pt's son & daughter, myself) to refine goals of care poor prognosis Admission and Anticipated Discharge Date Admission Date: June 13, 2022 Subjective lying in bed during the visit very little PO intake again today urine very concentrated in the jeff he only c/o right foot pain denies abd pain denies b/l groin pain he again asks about going home he declines getting into the chair Review of Systems Review of Systems: gen - sleeping much of the day cv - no orthopnea, no cp GI - no nausea or emesis pulm - no cough, no dyspnea musculo - no myalgia Physical Exam Physical Exam: gen - NAD, lying in bed; no change from previous exams neck - no JVD mouth - MM dry heart - irregular, s1 s2, no murmur lungs - CTA b/l abd - soft NT ND BS+ ext - no edema, pulses 2+ b/l, cap refill both feet <2 sec skin - woundvac in place right groin; left groin hematoma - resolving, getting smaller in size, not warm or tender to touch; right foot - 2 large "punched" out circular ulcers with black eschar - no change in appearance; largest is over the calcaneal region; medial aspect of left foot with irritated skin over medial malleolus - same as prior exams psych - oriented to person only Results & Data Results & Data ([facility]) Vital Signs (Past 12 Hours) Vital Signs Temp Pulse Pulse Resp BP Pulse Ox O2 Del Method 06/21/22 20:47 36.6 C 76 18 108/58 L 95 Room Air 06/21/22 16:31 89 06/21/22 15:07 36.4 C L 76 16 111/77 98 Room Air Laboratory Results Laboratory Results - last 24 hr 06/21/22 06/21/22 06/21/22 08:19 12:13 17:08 POC Glucose 81 96 82 06/21/22 20:41 POC Glucose 87 PG Care Time/CCT Total # of Minutes Spent Total Time Spent with Patient: Total time spent is greater than 50% in coordination of care (as documented) at patient's floor/unit and/or counseling patient: Coding Level of Care Code 08709 SUB INP/OBS CARE 2/35MIN Diagnoses Right foot pain M79.671 Weakness R53.1 Constipation K59.00 Constipation type: unspecified constipation type Wound of right foot S91.301A Right groin wound S31.109D Encounter type: subsequent encounter STACY (acute kidney injury) N17.9 Failure to thrive R62.7 Failure to thrive age range: in adult Acute encephalopathy G93.40 Urinary retention R33.9 Chronic systolic CHF (congestive heart failure) I50.22 Paroxysmal atrial fibrillation I48.0 LV (left ventricular) mural thrombus I51.3 Ischemic cardiomyopathy I25.5 CAD (coronary artery disease) I25.10 AICD (automatic cardioverter/defibrillator) present Z95.810 Depression F32.A Hx of subdural hematoma Z86.79 History of stroke Z86.73 Severe protein-calorie malnutrition E43 Prediabetes R73.03 (1) Right groin wound Encounter type: subsequent encounter Qualified Code(s): S31.109D - Unsp ecified open wound of abdominal wall, unspecified quadrant without penetration into peritoneal cavity, subsequent encounter (2) Failure to thrive Failure to thrive age range: in adult Qualified Code(s): R62.7 - Adult failure to thrive (3) Constipation Constipation type: unspecified constipation type Qualified Code(s): K59.00 - Constipation, unspecified
[2022-06-22] MEDS: INSULIN ASPART PER UNIT SC SCH ×2 (09:18→12:18)
[2022-06-22] MEDS: APIXABAN 5 MG TABLET PO SCH ×2 (09:18→21:09)
[2022-06-22] MEDS: FERROUS SULFATE 325 MG TAB PO SCH ×2 (09:19→16:39)
[2022-06-22] MEDS: ESCITALOPRAM OXALATE 10 MG TAB PO SCH (09:19)
[2022-06-22] MEDS: ACETAMINOPHEN 325 MG TAB PO SCH ×3 (09:19→21:09)
[2022-06-22] MEDS: METOPROLOL SUCC 50MG EXT REL TAB PO SCH (09:27)
[2022-06-22] MEDS: DOCUSATE SODIUM 100 MG CAP PO SCH ×2 (09:27→21:10)
[2022-06-22] MEDS: allopurinoL 100 MG TAB PO SCH (09:29)
[2022-06-22] MEDS: POLYETHYLENE (MIRALAX) 17 GM PACK PO SCH ×2 (09:29→21:10)
[2022-06-22] MEDS: CEROVITE ADV FORMULA TAB PO SCH (10:23)
[2022-06-22] MEDS: FINASTERIDE 5 MG TAB PO SCH (10:23)
[2022-06-22] MEDS: PREGABALIN 50 MG CAP PO SCH ×2 (10:23→21:10)
[2022-06-22] MEDS: DOCUSATE SODIUM/SENNA 50/8.6MG TAB PO SCH ×2 (10:24→21:10)
[2022-06-22] MEDS ORDERED: Nursing to Pharmacy Communication SCH (11:30)
[2022-06-22] MEDS: ATORVASTATIN 40 MG TAB PO SCH (13:14)
[2022-06-22] MEDS ORDERED: SODIUM CHLORIDE 0.9% 250 ML IV ONE (13:30)
--- NOTE | 2022-06-22 13:56 | Hospitalist Progress Note ---
Date of Service June 22, 2022 Assessment & Plan (1) Right foot pain: Plan: [place] to be neuropathic in etiology MRI right ankle/foot - no evidence of osteomyelitis no evidence of abscess no fracture on the MRI foot there was "Soft tissue edema within the plantar muscles could be due to chronic edema or denervation injury." this finding would support that his pain is indeed neuropathic. I suspect that when he developed his acute b/l iliac artery thromboses in 04/2022 he had ischemia to the distal legs and likely had an ischemic insult to one of his nerves in the right leg. Suspect either peroneal nerve injury or tibial nerve injury. meds tried - gabapentin, tramadol, oxycodone, morphine, dilaudid - intolerant of all of these (sedation, confusion, etc) tolerated hydrocodone but it did not relieve his pain pain management saw patient in consult - recommended lyrica 50mg BID + nucynta prn thus far tolerating both and both seem to be helping his pain no significant sedation from either Sed rate noted to be 100, but CRP is not correspondingly high (3.8). Sed rate had been >130 and CRP had been much higher. He refused his labs this am which would have included the sed rate/crp. Since he is tolerating the nucynta, will plan to start nycynta ER 50mg BID -- tonight 06/22/22. (2) Weakness: Plan: Multifactorial - multiple hospital admits since 04/30/2022. Multiple Rehab stays, Deconditioning, suspected depression, etc likely all contributed. Severe failure to thrive. 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 Continue OT and PT as tolerated but rehab potential is limited at best. He did not tolerate being out of bed for a brief period of time today. He will need SNF placement at discharge unless hospice is pursued by pt & his children. (3) Constipation: Plan: Cont senna/colace with miralax for maintenance. (4) Wound of right foot: Plan: 2 eschars noted on the right foot. Vascular surgery consultation and wound care consultation appreciated. He is receiving Betadine paint applications currently. X-ray negative for underlying osteomyelitis. MRI foot/ankle negative for osteomyelitis or deep tissue infection. See above re: pain control. ESR noted. CRP noted. If any worsening in these 2 wounds - podiatry or ortho consultation. (5) Right groin wound: Plan: Improving with woundvac. Previously infected right inguinal hematoma was evacuated (05/21/22) and wound VAC has been present since then. Appreciate vascular surgery consultation and recommendations along with wound care nursing assistance. Cont woundvac. Previously received course of IV ertapenem for ESBL Klebsiella. (6) STACY (acute kidney injury): Plan: Resolved Peak Cr 1 this admission. recent Cr's have been stable. (7) Failure to thrive: Plan: SEVERE 35+ pounds of weight loss over the last 6 weeks See #1 above Unfortunately did not tolerate mirtazapine and thus it was stopped I have asked psychiatry to weight in on options for depression - they recommend cymbalta Will d/w family but I would be in favor of starting it cont lexapro in meantime Continue OT and PT as tolerated but again limited rehab potential (8) Acute encephalopathy: Plan: combination of metabolic + toxic factors off/on throughout his stay even on good days he is confused and not oriented MRI brain ordered but could not tolerate additional imaging beyond his MRI R foot/ankle Previous CT head with old findings but nothing acute suspect he has baseline cognitive impairment from multiple brain injuries including SDH, strokes, etc. (9) Urinary retention: Plan: s/p jeff insertion at admission urine cx was negative remains on flomax HS patient requested jeff out -- this was removed a few days ago and he did not void thus - jeff placed back family had asked about finasteride for his prostate - certainly can add it, but it takes several months for it to be effective finasteride added this am (10) Chronic systolic CHF (congestive heart failure): Plan: EF <15% cont metoprolol succ appears volume contracted today - gave 250cc of NS today (11) Paroxysmal atrial fibrillation: Plan: cont BB cont eliquis cont dig (recent level wnl) (12) LV (left ventricular) mural thrombus: Plan: found on echo 04/2022 this then led to b/l iliac artery clots, prompting bypass surgery Dr Sharp 04/2022 cont Eliquis (13) Ischemic cardiomyopathy: Plan: no ischemic symptoms at this time compensated from volume standpoint (14) CAD (coronary artery disease): Plan: cont statin cont BB (15) AICD (automatic cardioverter/defibrillator) present: Plan: appreciate Dr Thomas's assistance re: placing pacer/ICD in MRI safe mode and coordinating with radiology for his recent MRIs no recent AICD discharges (16) Depression: Plan: cont lexapro psych consult appreciated possible addition of cymbalta - will address during family meeting tonight (17) Hx of subdural hematoma: Plan: b/l (18) History of stroke: Plan: MRI Brain attempted w/o success CT head with encephalomalacia in multiple areas of brain (19) Severe protein-calorie malnutrition: Plan: 17-18kg weight loss since April severe failure to thrive eating/drinking very little in bed nearly all day ordered Boost BID but doubt he will drink such ordered MVI daily ordered cortisol level today but he declined labs previous imaging of gall bladder showed distended gall bladder but no other features of acute cholecystitis doubt GB disease contributing to current picture has NO abdominal complaints (20) Prediabetes: Plan: a1c 6.1% stop metformin stop BSG checks Plan dispo - SNF family meeting this evening at 1730 with pt's son & daughter I met with his children first, speaking with them for about 50-55 minutes We discussed the chain of events, complications, current problems, etc starting mid-April when he was discovered to have an LV thrombus which then led to his b/l iliac artery thromboses We discussed his severe malnutrition/FTT/weight loss (35+ pounds since April Discussed R foot pain, recent MRI results, plan for his pain control, jeff catheter issues, constipation, pt's desire to go home [place] Discussed that prognosis is very, very poor given any lack of meaningful recovery He is spending nearly 100% of his days in bed and not doing any activity (no TV, no reading, not sitting in chair, not looking out the window, etc) Quality of life is quite poor His daughter inquired about alternative means of nutrition Discussed that he was poor candidate for NG tube feedings, and that I don't think his severe CHF would allow PPN or TPN due to concern of volume overload issues Both his children feel that he might feel better both psychologically and physically if the jeff catheter was removed; they don't want him to go home with a jeff We discussed formal palliative care consultation I brought up the concept of hospice We discussed disposition - I was under the impression he would go to SNF post- d/c, but both of his children want to bring him home His is still living, and she has not had much opportunity to see him over the last 2 months We then went to Mr Cabrera's bedside He was having rectal spasms from severe constipation I quickly reviewed some of the topics that myself and his children talked about Due to the rectal issues we were not able to hit the [place] points However, shortly after we started our conversation, Mr Cabrera made it very clear that he wants his jeff out, wants the constipation resolved, and wants to go home as soon as possible Plan - palliative care consultation, fleets mineral oil enema tonight, remove jeff at the request of the patient & his children (I did program counselor them that the chances of spontaneous void were low), and start nucynta ER 50mg BID tonight Goal is for home at discharge; uncertain if patient or his family would desire hospice at this time; as of jigna they did not ask questions about hospice or show interest in such With that said his son did acknowledge that his father's time is likely limited given his numerous health problems and ongoing failure to thrive, etc. total time today between bedside rounds, long family discussion, additional discussion with the patient, multiple discussions with nursing -- 100 minutes Admission and Anticipated Discharge Date Admission Date: June 13, 2022 Subjective patient lying in bed during my rounds has ongoing intermittent pain of his right foot near the heel denies b/l groin pain, chest pain, abd pain on his bedside tray is his lunch and it was completely untouched there were multiple bottles of liquids and various beverages - most of them also untouched during the visit he stated he was at "rehab" he then said "let me go home for a few weeks, then I will come back" he thought it was May and that it was Thursday jeff with concentrated urine asked if he wanted to get in a recliner and said he would try staff did indeed put him in the recliner but after a brief period wanted to be put back in the bed Review of Systems Review of Systems: gen - weight was 110kg in 04/2022; now 93kg (35+ pounds) cv - no orthopnea, no cp pulm - no dyspnea GI - no abd pain; staff report he had a BM today neuro - ongoing intermittent neuropathic pain Right Foot; no weakness or arms; mild chronic weakness of right leg Physical Exam Physical Exam: gen - NAD, lying in bed; no change from previous exams neck - no JVD mouth - MM dry heart - irregular, HR 90s, s1 s2, no murmur lungs - CTA b/l abd - soft NT ND BS+ ext - no edema, pulses 2+ b/l, cap refill both feet <2 sec skin - woundvac in place right groin - no changes; left groin hematoma - resolving, not warm or tender; right foot - 2 large "punched" out circular ulcers with black eschar - no change in appearance; largest is over the calcaneal region; medial aspect of left foot with irritated skin over medial malleolus - unchanged psych - oriented to person only neuro - right foot dorsiflexion 4-5/5; left foot 5/5; plantarflexion 4-5/5 right foot; 5/5 left foot Results & Data Results & Data ([facility]) Vital Signs (Past 12 Hours) Vital Signs Temp Pulse Resp BP Pulse Ox O2 Del Method 06/22/22 10:58 Room Air 06/22/22 07:09 36.8 C 71 16 122/83 94 Room Air Laboratory Results Laboratory Results - last 24 hr 06/21/22 06/21/22 06/22/22 17:08 20:41 08:12 POC Glucose 82 87 88 PG Care Time/CCT Total # of Minutes Spent Total Time Spent with Patient: Total time spent is greater than 50% in coordination of care (as documented) at patient's floor/unit and/or counseling patient: Prolonged Care Time Prolonged Care Time: Yes Total Prolonged Care Time: 100 Coding Level of Care Code 11297 SUB INP/OBS CARE 3/50MIN (25 - SIGNIFICANT, SEPARATELY IDENTIFIABLE ) Diagnoses Right foot pain M79.671 Weakness R53.1 Constipation K59.00 Constipation type: unspecified constipation type Wound of right foot S91.301A Right groin wound S31.109D Encounter type: subsequent encounter STACY (acute kidney injury) N17.9 Failure to thrive R62.7 Failure to thrive age range: in adult Acute encephalopathy G93.40 Urinary retention R33.9 Chronic systolic CHF (congestive heart failure) I50.22 Paroxysmal atrial fibrillation I48.0 LV (left ventricular) mural thrombus I51.3 Ischemic cardiomyopathy I25.5 CAD (coronary artery disease) I25.10 AICD (automatic cardioverter/defibrillator) present Z95.810 Depression F32.A Hx of subdural hematoma Z86.79 History of stroke Z86.73 Severe protein-calorie malnutrition E43 Prediabetes R73.03 Additional Codes Prolonged Care Time - Prolonged Care Time: Yes ([id number]) (1) Right groin wound Encounter type: subsequent encounter Qualified Code(s): S31.109D - Unspecified open wound of abdominal wall, unspecified quadrant without penetration into peritoneal cavity, subsequent encounter (2) Failure to thrive Failure to thrive age range: in adult Qualified Code(s): R62.7 - Adult failure to thrive (3) Constipation Constipation type: unspecified constipation type Qualified Code(s): K59.00 - Constipation, unspecified
[2022-06-22] MEDS: TAPENTADOL HCL 50 MG TAB PO PRN (14:01)
[2022-06-22] MEDS: DIGOXIN 0.125 MG TAB PO SCH (16:39)
[2022-06-22] MEDS ORDERED: MINERAL OIL ENEMA 133 ML BTL PR ONE (18:49)
[2022-06-22] MEDS: TAPENTADOL HCL ER 50 MG TABCR PO SCH (21:10)
[2022-06-22] MEDS: METOPROLOL SUCC 25MG EXT REL TAB PO SCH (21:10)
[2022-06-22] MEDS: TAMSULOSIN HCL 0.4 MG CAP PO SCH (21:10)
--- NOTE | 2022-06-23 09:00 | Palliative Care Consultation ---
Date of Consultation June 23, 2022 Assessment & Plan (1) Palliative care encounter: Met with pt/family. Provided overview of Palliative Medicine, a subspecialty that provides specialized medical care for people living with a serious illness by offering a focus on quality of life. Palliative Medicine is often conflated with hospice: I advised patient/family that Palliative and hospice can be partners but we are not the same. It is important to understand the difference so that we may be informed, and not afraid. Palliative Medicine works to improve QOL through reduction of symptom burden/more control over their illness, for both the patient and family. Palliative medicine clinicians are board certified, specially-trained and another member of the patient's medical care team. We often provide an extra layer of support because our care is based on the needs of the patient, not the prognosis; as such, it's appropriate at any age/advancing stage of a serious illness and can be provided along with curative treatment. Palliative Medicine clinicians are also trained in advanced communication methodologies, to facilitate complex discussions about advanced illness planning, which are needed to help assure that the treatment choices match the patient's goals, aka delivering Goal Concordant care. Finally, we discussed that hospice is a visiting nurse service that focuses on care delivered at the very end of life for patients with terminal illness, with life expectancy less than 6 month. (2) Advanced care planning/counseling discussion: ACP meetings x 2: 11-1130am with son in family meeting room them 1130am-1215pm with son and pt at pt bedside, total time in ACP discussion was 75min reviewed overall trajectory of decline, with worsening PS, dependence on others for help. Pt is also in her 70s. She is unable to care for him physically and son notes he can be demanding and at times perhaps unrealistic in his expectations of help from family. They are however committed to keeping him at home, which is a fundamental principle of their [place] [employer] culture. Son and dtr work opposite shifts to help take turn being there to care for pt. Son notes last time pt came home, he had to run a quick errand and returned in under and hour and found pt on the floor. I have provided education about the hospice benefit. Hospice is an interdisciplinary program offered by nurses, nurses aides, social workers, chaplains and a medical data analyst for patients with a terminal condition and a life expectancy of less than 6 months. The goal would be to improve the quality of life of the patient in their home setting (home, intermediate, inpatient hospice setting) by providing symptoms management, psychosocial and spiritual support. However, they cannot offer 24 hours care and if the family is unable to provide that care, they will have to consider personal care with out of pocket cost vs. intermediate placement. Son in in agreement for hospice. I very specifically discussed with son that should pt continue to escalate in needs and/or have rising safety needs to where he cannot be managed at home, then the choice next time would not be home with hospice or not, it will be which SNF do they want from the choices they are given because pt safety would not be able to be assured at home. We talked about hiring private caregivers but also [place]. They will not qualify for FARZANA/home aides. Son feels they may be able to reasonably manage with hospice, as there will be a family member there most of the time. We spoke about perhaps using some low dose Haldol intensol at bedtime to help reduce his agitation and restless behaviors at night which are consistent with dementia related sundowning. We also spoke about improving his pain mgt but knowing this may come with the tradeoff of sedation. Son notes that word choice is very important in discussions with pt. Better to describe the services of home hospice as a visiting nursing service to assure comfort and QOL, than to say hospice, which would cause pt to believe he is getting no care. Advised this may be another manifestation of pt dementia and that all providers can be careful with their words. Son is in agreement. We then met with pt. HE is a world traveler and regrets his illness has kept him from more adventures. Pt feels "if only I can get stronger then I will go back to [place] and maybe [place] too. I have been there 17 times. I love it." We spoke about the individual services that hospice would provide: home health aide, nurses cisco certified network professional 08/12, home PT, health care social worker etc. I encouraged him to accept all the help they can give up front, then if/when he gets stronger and more Independent, he can back off their services. He was in agreement, He also notes that if it is his time then it is his time and he wants to be home with his family. He wants to be dc home today. I advised him it may take a day to make arrangements abrahan he needs a hospital bed and has a wound vac. he was not happy with this but eventually acquiesced. (3) Failure to thrive: Failure to thrive age range: in adult Qualified Code(s): R62.7 - Adult failure to thrive (4) Severe protein-calorie malnutrition: (5) Vascular dementia: Dementia facts Aggressive medical treatment for residents with advanced dementia is often inappropriate for medical reasons, has a low rate of success, and can have negative outcomes that hasten functional decline and . (Stateless Geriatrics Society Ethics Committee and Clinical Practice and Models of Care Committee. J Am Geriatr Soc. 2014 Dec;62(8):1590-3 and Nydia SL, Daniella JM, Mckoy SC, Torres V. A national study of the location of for older persons with dementia. J Am Geriatr Soc 2005; 53(2):299-305.) Tube feeding in residents with advanced dementia does not increase survival. It does not prevent aspiration pneumonia, malnutrition or pressure ulcers. It does not reduce the risk of infections or improve functional status or comfort of the patient. (from: Eddi CRYSTAL, Sabiha T Percutaneous endoscopic gastrostomy does not prolong survival in patients with dementia. Arch Airline Pilot/First Officer Med 2003; 163(11):2222-5508 AND Germaine DE, Arlette CHARLY, Colin J, Jf S, Shukri RS. High short-term mortality in hospitalized patients with advanced dementia - Lack of benefit of tube feeding. Arch Airline Pilot/First Officer Med 2001; 161(4):594- 599.) Simple strategies involving hands-on care by well-trained staff such as massage, oral hygiene, changes in diet, and hand-feeding -- can prevent infection and manage feeding problems without resort to tube-feeding. Tube feeding does not prevent aspiration pneumonia and might actually increase its incidence, and does not prevent the consequences of malnutrition Hand feeding can be provided until the beginning of the dying process when all physiological processes shut down, note that cognitively intact cancer patients indicate that dying residents do not feel hunger and thirst. Voluntary refusal of food and liquids is often initiated by hospice patients and does not result in discomfort I recommend hospice at : Hospice is a valuable service for persons with advanced dementia, particularly in management of pain, continuous involvement of the primary physician, and avoidance of hospitalization. Social support provided to caregivers is also important given their high levels of depressive symptoms and anxiety. The goal of care for residents with advanced dementia is primarily maintenance of function and patient should not be transferred to an acute care setting because hospitalization results in decline of functional abilities that do not recover after discharge back into intermediate Will ask Care Mgt follow up to see if pt is eligible for hospice at SNF. Dementia prognosis with MRI score: Dementia is an irreversible syndrome of acquired and persistent impairment in cognition and intellectual functioning, leading to progressive brain failure and . Alee (Alee Mortensen. Dementia and Neurodegenerative Disorders. In: Shukri GUILLEN, Germaine DE, eds. Geriatric Palliative Care. [place], [place]: [employer]; 2003.) classifies dementia into four functionally defined categories: mild, moderate, severe, and terminal. Terminal dementia is defined as loss of communication, ambulation, swallowing, and continence. Many prognostic factors have been associated with shortened survival: male gender, age, diabetes mellitus, CHF, COPD, cancer, cardiac dysrhythmias, peripheral edema, aspiration, bowel incontinence, recent weight loss, dehydration, fever, pressure ulcers, seizures, shortness of breath, low oral intake, not being awake for most of the day, low BMI, and recent need for continuous oxygen. A 2012 systematic review found that malnutrition, feeding issues, and dysphagia were the strongest associated factors with 6 month mortality in elderly patients with advanced dementia. Simply being admitted to the hospital with acute illness and end-stage or terminal dementia is associated with a particularly poor prognosis: the six month mortality after hospitalization for pneumonia was 53% compared with 13% for cognitively intact patients. For patients with a new hip fracture, 55% of end-stage dementia patients within 6 months compared with 12% for cognitively intact patients (Shukri GUILLEN, Anahi AL. Survival in end-stage dementia following acute illness. JOLANTA. 2000; 284:47-52.). The Mortality Risk Index (MRI) score of >=12, demonstrated that 70% within 6 months (mean survival time not reported). Compared to FAST Stage 7C, the MRI had greater predictive value of six month prognosis. The MRI as only been evaluated in newly admitted intermediate residents; it has yet to be validated in the community setting or for previously established long-term intermediate residents. (Nydia SL, Archie DK, Rios MB, et al. Estimating prognosis for intermediate residents with advanced dementia. JOLANTA. 2004; 291:9668-4606.) Access the MRI Score calculator at: https://eprognosis.[email or web address].edu/nydia.php patient's MRI SCORE IS 21.4 --> RISK OF 6 MONTH MORTALITY IS 49 - 62%; This risk calculator sorts patients who from patients who lived correctly 67% of the time (c-statistic, 95% CI, 0.62-0.72). Nydia CARTER, Ean SC, Daniella JM, Archie DK, Ramakrishna RB, Renetta ML. Prediction of 6-Month Survival of Long Term Residents With Advanced Dementia Using ADEPT vs Hospice Eligibility Guidelines. JOLANTA. 2010;304(17):1017-9604. doi:10.1001/jolanta.2010.1572. (6) Constipation: Constipation type: unspecified constipation type Qualified Code(s): K59.00 - Constipation, unspecified (7) History of stroke: (8) Hx of subdural hematoma: (9) Wound of right foot: (10) Right groin wound: Encounter type: subsequent encounter Qualified Code(s): S31.109D - Unspecified open wound of abdominal wall, unspecified quadrant without penetration into peritoneal cavity, subsequent encounter (11) STACY (acute kidney injury): (12) Hematoma: (13) LV (left ventricular) mural thrombus: (14) Paroxysmal atrial fibrillation: (15) CAD (coronary artery disease): (16) AICD (automatic cardioverter/defibrillator) present: (17) Obesity, diabetes, and hypertension syndrome: (18) Right hemiparesis: Plan Vascular dementia related behav changes, reviewed and d/w family WOund vac to right groin, right heel wound under treatment wants to continue this for now recommend a trail of Haldol Intensol 1mg PO/SL qhs for relief of agitation and confusion at night, may help him sleep better and avoid disrupting the wound vac Adv cardiac disease Agreeable to a plan of care focused on comfort and sx mgt to optimize QOL, and wants to be home. This is c/w home hospice but he gets unsettled by the word hospice, this may be both due to his dementia as well as his prior clinical work and cultural beliefs. We called this plan a home based visiting nurse service. 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 Patient did have infected right groin wound with a ESBL Klebsiella - is being followed by wound care team. At time of ED eval, pt and family reported he has been bedbound, unable to perform ADLs and reliant on family for all his care. he is not taking much PO. he has progressing vascular type dementia He has been steadily declining. He keeps removing his wound vac at night, gets agitated and maybe confused about it and takes it apart. 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 His son and dtr are very involved in his care and they are both pharmacists at [facility] pharmacies. Pt and his live at home with son, in son's home, which was custom built to accommodate their needs as an extended family. Pt has been growing steadily weaker and at times more confused but he continues to have moments of clarity abrahan for scientific discussions. In addition to his DVM, pt also has a PhD in clinical pathology. He was an avid world traveler, visiting over 70 countries to date. He was born and raised in [place] before moving to the . 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 He had a strong interest in soft tissue pathology and surgery. Pt can provide some information but is not consistent. He states his abd issue with distension and constipation has only been since admission, though this was what brought him to ED. He has not been taking much PO at home per family but tells me he is not eating bc he simply does not like the food here but does well at home. He states at home he can move around freely, but he has been PS 4 for many weeks per family. Allergies Allergy/AdvReac Type Severity Reaction Status Date / Time Pork/Porcine Containing AdvReac Unknown Unknown Verified 06/12/22 20:21 Products Home Medications Medication Instructions Recorded Confirmed Type metformin 500 mg tablet 500 mg PO BID #180 tabs 12/13/21 06/12/22 Rx atorvastatin 80 mg tablet 80 mg PO QPM 01/01/22 06/12/22 History spironolactone 25 mg tablet 25 mg PO QPM 01/01/22 06/12/22 History allopurinol 100 mg tablet 100 mg PO DAILY 03/21/22 06/12/22 History ropinirole 0.25 mg tablet 0.5 mg PO HS 04/30/22 06/12/22 History apixaban 5 mg tablet 5 mg PO Q12H #60 tabs 05/09/22 06/12/22 Rx tamsulosin 0.4 mg capsule 0.4 mg PO HS #20 caps 05/09/22 06/12/22 Rx acetaminophen 325 mg tablet 650 mg PO Q8H #60 tabs 05/30/22 06/12/22 Rx digoxin 125 mcg (0.125 mg) tablet 0.125 mg PO DAILY@1600 #30 tabs 05/30/22 06/12/22 Rx (Digitek) escitalopram oxalate 10 mg tablet 10 mg PO QAM #30 tabs 05/30/22 06/12/22 Rx (Lexapro) gabapentin 100 mg capsule 100 mg PO QAM #30 caps 05/30/22 06/12/22 Rx gabapentin 300 mg capsule 300 mg PO PM #30 caps 05/30/22 06/12/22 Rx hydrocodone 7.5 mg-acetaminophen 1 tab PO Q6H PRN pain #10 tabs 05/30/22 06/12/22 Rx 325 mg tablet metoprolol succinate 100 mg 100 mg PO DAILY #30 tabs 05/30/22 06/12/22 Rx tablet,extended release 24 hr metoprolol succinate 25 mg 25 mg PO HS #30 tabs 05/30/22 06/12/22 Rx tablet,extended release 24 hr mirtazapine 7.5 mg tablet 7.5 mg PO HS #30 tabs 05/30/22 06/12/22 Rx mwelawtn-mml-ymneo acid 0.4 1 tab PO QAM #30 tabs 05/30/22 06/12/22 Rx mg-lycopene 300 mcg-lutein 250 mcg tablet (Cerovite Senior) polyethylene glycol 3350 17 gram 17 g PO DAILY #30 ea 05/30/22 06/12/22 Rx oral powder packet (Miralax) sennosides 8.6 mg-docusate sodium 1 tab PO BID #60 tabs 05/30/22 06/12/22 Rx 50 mg tablet (Senokot-S) Patient History Medical History (Updated 06/23/22 @ 10:32 by Nessa Liu DNP) Acute CVA (cerebrovascular accident) Acute occlusion of aortoiliac artery Advanced care planning/counseling discussion STACY (acute kidney injury) Anemia Atrial fibrillation with rapid ventricular response Atrial fibrillation with rapid ventricular response CAD (coronary artery disease) Chronic systolic CHF (congestive heart failure) Depression Diabetes Elevated troponin Gout Hx of subdural hematoma Hyperlipidemia Implantable cardioverter-defibrillator (ICD) discharge Ischemic cardiomyopathy Hx IN S/P PCI and CABG LV (left ventricular) mural thrombus Neuropathic pain of foot Palliative care encounter Paroxysmal atrial fibrillation Restless leg syndrome Subarachnoid hemorrhage Urinary retention Vascular dementia Surgical History AICD (automatic cardioverter/defibrillator) present H/O heart bypass surgery Family History Brother Diabetes Mother Hypertension Father Stroke Denies family history of Ovarian cancer Prostate cancer Myocardial infarction Breast cancer Colorectal cancer Social History Smoking Status: Never smoker Second Hand Exposure: No; Hx Alcohol Use: No Hx Substance Use: No Preferred Language: Uzbek 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: Effective Rn Clinical Trials Required: No Beliefs That Will Affect Care: None Current Living Situation: Family Current Living Situation Comment: lives with his and their son but came to use from [facility] current occupational status: retired Feels Safe at Home: Yes Safety Concerns: Feels Safe At This Time Physical Activity Frequency: 1-2 Times per Week Seatbelt Use: always Assistive Devices: Walker Review of Systems Review of Systems: All systems reviewed & are unremarkable except as noted in Subjective and Unobtainable due to cognitive status Physical Exam Constitutional: At times pleasantly confused. Awake and alert to self. At times he forgets he is in the hospital. Bitemp wasting, PERRLA. Pharynx pink, mucosa sl dry, dentition fair/+plaque Neck supple without obvious stridor No JVD NO audible wheezing or use of accessory muscles at rest, there is conversational dyspnea Abd distended and firm Moving extremities weakly. Strength diminished. Skin pale, cool. Results & Data ([facility]) Vital Signs (Past 12 Hours) Vital Signs Temp Pulse Pulse Resp BP Pulse Ox O2 Del Method 06/23/22 08:03 36.6 C 89 89 18 130/86 98 Room Air 06/22/22 22:19 37.1 C 87 18 117/75 97 Room Air Laboratory Results data reviewed Diagnostic Findings data reviewed PG Care Time/CCT Total # of Minutes Spent Total Time Spent: 105 Total Time Spent with Patient: Total time spent is greater than 50% in coordination of care (as documented) at patient's floor/unit and/or counseling patient: 75min in ACP 30 min in chart review, pt consult, discussion with teams/coord of care Prolonged Care Time Prolonged Care Time: Yes Advanced Care Planning 42199 Advanced Care Planning Additional 30 Min Coding Level of Care Code New Pt INP/OBS CONSULT LVL 5, 80 MIN Patient Type New History Comprehensive Exam Detailed Medical Decision Making High Complexity Diagnoses Palliative care encounter Z51.5 Advanced care planning/counseling discussion Z71.89 Failure to thrive R62.7 Failure to thrive age range: in adult Severe protein-calorie malnutrition E43 Vascular dementia F01.50 Constipation K59.00 Constipation type: unspecified constipation type History of stroke Z86.73 Hx of subdural hematoma Z86.79 Wound of right foot S91.301A Right groin wound S31.109D Encounter type: subsequent encounter STACY (acute kidney injury) N17.9 Hematoma T14.8XXA LV (left ventricular) mural thrombus I51.3 Paroxysmal atrial fibrillation I48.0 CAD (coronary artery disease) I25.10 AICD (automatic cardioverter/defibrillator) present Z95.810 Obesity, diabetes, and hypertension syndrome E11.69; E11.59; E66.9; I15.2 Right hemiparesis G81.91 Additional Codes Prolonged Care Time - Prolonged Care Time: Yes ([id number]) Advanced Care Planning - 69449 Advanced Care Planning Additional 30 Min: 22571 Advanced Care Planning Additional 30 Min ([id number])
[2022-06-23] MEDS: allopurinoL 100 MG TAB PO SCH (09:19)
[2022-06-23] MEDS: FERROUS SULFATE 325 MG TAB PO SCH ×2 (09:19→16:25)
[2022-06-23] MEDS: ACETAMINOPHEN 325 MG TAB PO SCH ×3 (09:19→21:28)
[2022-06-23] MEDS: DOCUSATE SODIUM 100 MG CAP PO SCH ×2 (09:20→21:29)
[2022-06-23] MEDS: ESCITALOPRAM OXALATE 10 MG TAB PO SCH (09:20)
[2022-06-23] MEDS: APIXABAN 5 MG TABLET PO SCH ×2 (09:20→21:28)
[2022-06-23] MEDS: FINASTERIDE 5 MG TAB PO SCH (09:20)
[2022-06-23] MEDS: METOPROLOL SUCC 50MG EXT REL TAB PO SCH (09:20)
[2022-06-23] MEDS: CEROVITE ADV FORMULA TAB PO SCH (09:20)
[2022-06-23] MEDS: POLYETHYLENE (MIRALAX) 17 GM PACK PO SCH ×2 (09:20→21:27)
[2022-06-23] MEDS: PREGABALIN 50 MG CAP PO SCH ×2 (09:20→21:27)
[2022-06-23] MEDS: TAPENTADOL HCL ER 50 MG TABCR PO SCH ×2 (09:21→21:28)
[2022-06-23] MEDS: DOCUSATE SODIUM/SENNA 50/8.6MG TAB PO SCH ×2 (09:24→21:40)
[2022-06-23] MEDS: ATORVASTATIN 40 MG TAB PO SCH (11:33)
[2022-06-23] MEDS: DIGOXIN 0.125 MG TAB PO SCH (16:25)
--- NOTE | 2022-06-23 19:57 | Hospitalist Progress Note ---
Date of Service June 23, 2022 Assessment & Plan (1) Advanced care planning/counseling discussion: Plan: lengthy goals of care discussion with daughter, son, and patient on 06/22/22 we did not address code status during those discussions, but the 4 goals from that discussion were - R foot pain control; Rx of constipation; urinary tract/jeff issues; and home mars[place] today formal palliative care consultation was obtained; appreciate Rimma Liu's assistance following that discussion refined plan is now home with hospice marsha I spoke with Kelli Fleming from case management who will make necessary arrangements pt's son confirms they have a woundvac already at home (was given such after he was d/c from [facility]) hopefully hospice will cover the nucynta ER and nucynta IR (he did not tolerate other pain meds) given the ongoing urinary retention jeff will be placed back patient & son ok with such (2) Right foot pain: Plan: [place] to be neuropathic in etiology MRI right ankle/foot - no evidence of osteomyelitis no evidence of abscess no fracture on the MRI foot there was "Soft tissue edema within the plantar muscles could be due to chronic edema or denervation injury." this finding would support that his pain is indeed neuropathic. I suspect that when he developed his acute b/l iliac artery thromboses in 04/2022 he had ischemia to the distal legs and likely had an ischemic insult to one of his nerves in the right leg. Suspect either peroneal nerve injury or tibial nerve injury. meds tried - gabapentin, tramadol, oxycodone, morphine, dilaudid - intolerant of all of these (sedation, confusion, etc) tolerated hydrocodone but it did not relieve his pain pain management saw patient in consult - recommended lyrica 50mg BID + nucynta IR prn tolerated both without side effects still with pain despite the above meds thus added nucynta ER 50mg BID on 06/22/22 d/c home with nucynta ER + nucynta IR prn d/c home with lyrica BID (3) Weakness: Plan: Multifactorial - multiple hospital admits since 04/30/2022. Multiple Rehab stays, Deconditioning, suspected depression, etc likely all contributed. Severe failure to thrive. Can't rule out CRIMINAL PSYCHOLOGIST event - I did order MRI brain but he could not tolerate any further imaging beyond the ankle/foot. Transitioning home with hospice - likely d/c tomorrow. (4) Constipation: Plan: Cont senna/colace with miralax for maintenance. Constipation improved. (5) Wound of right foot: Plan: 2 eschars noted on the right foot. Vascular surgery consultation and wound care consultation appreciated. He is receiving Betadine paint applications currently. X-ray negative for underlying osteomyelitis. MRI foot/ankle negative for osteomyelitis or deep tissue infection. Cont local wound care. (6) Right groin wound: Plan: Improved with woundvac. Previously infected right inguinal hematoma was evacuated (05/21/22) and wound VAC has been present since then. Previously received course of IV ertapenem for ESBL Klebsiella. Pt's son states they have woundvac at home. (7) STACY (acute kidney injury): Plan: Resolved Peak Cr 1 this admission. recent Cr's have been stable. (8) Failure to thrive: Plan: SEVERE 35+ pounds of weight loss over the last 6 weeks (9) Acute encephalopathy: Plan: combination of metabolic + toxic factors off/on throughout his stay even on good days he is confused and not oriented MRI brain ordered but could not tolerate additional imaging beyond his MRI R foot/ankle Previous CT head with old findings but nothing acute suspect he has baseline cognitive impairment from multiple brain injuries including SDH, strokes, etc. (10) Urinary retention: Plan: despite flomax he has not been able to spontaneously void failed 2 spontaneous voiding trials put back jeff and send home at discharge (11) Chronic systolic CHF (congestive heart failure): Plan: EF <15% cont metoprolol succ (12) Paroxysmal atrial fibrillation: Plan: cont BB cont eliquis cont dig (recent level wnl) normally I would stop Eliquis on hospice but consider continuing to prevent restenosis of his iliac arteries (which led to severe ischemic pain of legs) the eliquis hopefully would prevent more thrombotic events which could lead to pain (13) LV (left ventricular) mural thrombus: Plan: found on echo 04/2022 this then led to b/l iliac artery clots, prompting bypass surgery Dr Sharp 04/2022 cont Eliquis (14) Ischemic cardiomyopathy: Plan: no ischemic symptoms at this time compensated (15) CAD (coronary artery disease): Plan: cont BB stop statin at d/c (16) AICD (automatic cardioverter/defibrillator) present: Plan: appreciate Dr Thomas's assistance re: placing pacer/ICD in MRI safe mode and coordinating with radiology for his recent MRIs no recent AICD discharges consider deactivating his device before discharge since he is going home with hospice (17) Depression: Plan: cont lexapro (18) Hx of subdural hematoma: Plan: b/l (19) History of stroke: Plan: MRI Brain attempted w/o success CT head with encephalomalacia in multiple areas of brain (20) Severe protein-calorie malnutrition: Plan: 17-18kg weight loss since April severe failure to thrive eating/drinking very little in bed nearly all day ordered Boost BID but doubt he will drink such ordered MVI daily ordered cortisol level but he declined labs yesterday; given transition to hospice I did not order any other labs previous imaging of gall bladder showed distended gall bladder but no other features of acute cholecystitis doubt GB disease contributing to current picture has NO abdominal complaints (21) Prediabetes: Plan: a1c 6.1% stop metformin stop BSG checks Plan dispo - to home with hospice, hopefully tomorrow update given to son at bedside today Admission and Anticipated Discharge Date Admission Date: June 13, 2022 Subjective patient and his daughter/son met with Ms Liu from palliative care at this time plan is for home with hospice as soon as possible since jeff removal yesterday evening he has NOT voided last bladder scan - ~450cc he has no sensation to void during my rounds his son was present son states that he doesn't have any other needs for his father other than the hospital bed, bedside table, etc pt is not averse to having a jeff put back in son was supportive of such pain in right foot reasonably controlled today he was resting very comfortably today during the visit po intake next to nothing today Review of Systems Review of Systems: cv - no chest pain pulm - no dyspnea GI - having bowel movements now; no abd pain Physical Exam Physical Exam: gen - NAD, lying in bed comfortably neck - no JVD heart - irregular, s1 s2, no murmur lungs - CTA b/l abd - soft NT ND BS+ rectum - patient incontinent of stool ext - no edema, pulses 2+ b/l, cap refill both feet <2 sec skin - woundvac in place right groin - no changes; right foot 2 large ulcers with black eschar - no change in appearance, largest is over the calcaneal region; medial aspect of left foot with irritated skin over medial malleolus - unchanged Results & Data Results & Data ([facility]) Vital Signs (Past 12 Hours) Vital Signs Temp Pulse Pulse Pulse Resp BP Pulse Ox 06/23/22 16:25 88 06/23/22 15:31 36.6 C 91 H 16 111/66 94 06/23/22 08:03 36.6 C 89 89 18 130/86 98 O2 Del Method 06/23/22 16:25 06/23/22 15:31 Room Air 06/23/22 08:03 Room Air Laboratory Results Laboratory Results - last 24 hr 06/22/22 21:18 POC Glucose 98 PG Care Time/CCT Total # of Minutes Spent Total Time Spent with Patient: Total time spent is greater than 50% in coordination of care (as documented) at patient's floor/unit and/or counseling patient: Coding Level of Care Code 71864 SUB INP/OBS CARE 2/35MIN Diagnoses Advanced care planning/counseling discussion Z71.89 Right foot pain M79.671 Weakness R53.1 Constipation K59.00 Constipation type: unspecified constipation type Wound of right foot S91.301A Right groin wound S31.109D Encounter type: subsequent encounter STACY (acute kidney injury) N17.9 Failure to thrive R62.7 Failure to thrive age range: in adult Acute encephalopathy G93.40 Urinary retention R33.9 Chronic systolic CHF (congestive heart failure) I50.22 Paroxysmal atrial fibrillation I48.0 LV (left ventricular) mural thrombus I51.3 Ischemic cardiomyopathy I25.5 CAD (coronary artery disease) I25.10 AICD (automatic cardioverter/defibrillator) present Z95.810 Depression F32.A Hx of subdural hematoma Z86.79 History of stroke Z86.73 Severe protein-calorie malnutrition E43 Prediabetes R73.03 (1) Right groin wound Encounter type: subsequent encounter Qualified Code(s): S31.109D - Unspecified open wound of abdominal wall, unspecified quadrant without penetration into peritoneal cavity, subsequent encounter (2) Failure to thrive Failure to thrive age range: in adult Qualified Code(s): R62.7 - Adult failure to thrive (3) Constipation Constipation type: unspecified constipation type Qualified Code(s): K59.00 - Constipation, unspecified
[2022-06-23] MEDS: TAMSULOSIN HCL 0.4 MG CAP PO SCH (21:29)
[2022-06-23 21:35] LABS: Appearance Urine Turbid (Clear); Bacteria Urine Automated Negative (Negative); Blood Urine 3+ (Negative); Color Urine Dark Yellow; Glucose Urine UA Negative (Negative); Ketones Urine Trace (Negative); Leukocyte Esterase Urine 1+ (Negative); Nitrite Urine Negative (Negative); Protein Urine 2+ (Negative); RBC Urine Automated >30 /hpf (0-4); Specific Gravity Urine 1.025 (1.000-1.030); Urobilinogen Urine Negative (Negative)
[2022-06-23 21:36] LABS: Bilirubin Urine 1+ (Negative)
[2022-06-23] MEDS: METOPROLOL SUCC 25MG EXT REL TAB PO SCH (21:40)
[2022-06-24] MEDS: TAPENTADOL HCL 50 MG TAB PO PRN ×2 (05:27→12:49)
[2022-06-24] MEDS: TAPENTADOL HCL ER 50 MG TABCR PO SCH (09:26)
[2022-06-24] MEDS: PREGABALIN 50 MG CAP PO SCH (09:26)
[2022-06-24] MEDS: ACETAMINOPHEN 325 MG TAB PO SCH ×2 (09:27→14:48)
[2022-06-24] MEDS: APIXABAN 5 MG TABLET PO SCH (09:27)
[2022-06-24] MEDS: FINASTERIDE 5 MG TAB PO SCH (09:27)
[2022-06-24] MEDS: CEROVITE ADV FORMULA TAB PO SCH (09:28)
[2022-06-24] MEDS: FERROUS SULFATE 325 MG TAB PO SCH (09:28)
[2022-06-24] MEDS: allopurinoL 100 MG TAB PO SCH (09:28)
[2022-06-24] MEDS: METOPROLOL SUCC 50MG EXT REL TAB PO SCH (09:28)
[2022-06-24] MEDS: ESCITALOPRAM OXALATE 10 MG TAB PO SCH (09:28)
[2022-06-24] MEDS: DOCUSATE SODIUM/SENNA 50/8.6MG TAB PO SCH (09:29)
[2022-06-24] MEDS: DOCUSATE SODIUM 100 MG CAP PO SCH (09:29)
[2022-06-24] MEDS: POLYETHYLENE (MIRALAX) 17 GM PACK PO SCH (09:29)
--- NOTE | 2022-06-24 11:40 | Discharge Summary ---
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 Per chart review, the patient has had multiple recent admissions to [facility] and [facility]. He was first admitted to [facility] from 04/30/22-05/08/22 for acute occlusion of the aortoiliac artery. He initially presented to the [facility] ED with left thigh/LE pain and was found to have an apical thrombus in the left femoral iliac artery thought to have been caused by afib. He underwent Bilateral Iliac and Femoral Embolectomy, Left Common Femoral Artery Endarterectomy with Bovine Patch, left Common Artery Patch Angioplasty - performed by Dr Sharp [05/02]. He experienced a large hematoma postoperatively with acute blood loss anemia with a Hgb drop from 14 to 8.9. He was treated with IV iron and discharged on ferrous gluconate. He experienced an STACY thought to be ATN due to hypotension and possible emboli from Afib RVR during his admission. The patient was continued on dual antiplatelet therapy and was also on heparin. Ct of the abd/pelvs was negative for hydronephrosis but he did experience urinary retention and require coude cath placement, he was also started on flomax. His c r retuned to baseline and his catheter was able to be removed prior to discharge. He was again admitted to [facility] from 05/13-05/30/22 due to afib RVR with ICD firing, infected right groin hematoma, and BL thigh hematomas. His wound culture grew EBL Klebsiella, blood cultures remained negative. He was started on ertapenem, zosyn/dapto, and discharged on levaquin. ID was consulted and recommended to continue abx for a total of 14 days (last day on 06/03) and was discharged with a wound vac on the right hematoma I&D site. He was recently discharged home from [facility] on In the ED today the patient was found to be afebrile, hemodynamically stable, and stable on RA. Labs were remarkable for a WBC WNL, stable Hgb at 16.8, stable platelets, cr of 1.08 (baseline appears to be 0.8), stable electrolytes, LFTs WNL, and covid negative. CT of the abd/pelvis with contrast was read as "1. Large amount of stool within the rectum and colon. No evidence for a bowel obstruction. 2. Distended bladder which likely accounts for mild left hydroureteronephrosis. 3. Decrease in size and attenuation of the left groin hematoma. Near complete resolution of the right groin hematoma. Right groin wound. Remonstration of occlusion of the bilateral superficial femoral arteries. 4. Moderate gallbladder distention without adjacent stranding. If right upper quadrant pain, ultrasound is recommended to exclude acute cholecystitis. 5. Mildly enlarged bilateral inguinal and right external iliac chain nodes which are likely reactive.". Prior to admission the patient was given a 500 mL NSS bolus and 4 mg IV morphine. At the time of the exam the patient was resting comfortably in bed in no acute distress. I obtained a history from the patient and also his SON/POA on the phone. They state that since being discharged from [facility] 3 days ago the patient has been weak and unable to complete his ADLs at home. The patient does live with his Son. His son states that the patient is unable to get out of bed due to his known chronic wounds on the right foot and his BL thigh wounds. He has not been urinating consistently and they are unsure of how to obtain consistent care for his chronic wounds at this time. The patient denies recent fevers, chills, chest pain, SOB, vomiting, dysuria, hematuria, and recent falls. He has had some lower abdominal discomfort, however, this improved after he had a bowel movement prior to my arrival in his room. His son thinks that the patient may be taking too many narcotics or taking them too frequently causing his constipation; his son is a Pharmacist. I explained that we can re-admit him and have him re-evaluated by PT/OT for rehab placement to continue to build his strength, they are both in agreement. When asked about urinary retention, the patient states that when someone is able to help him he is able to urinate, if has to get up himself he has too much difficulty. His son states that he was concerned the patient was being over medicated with sedating medications and had recently held his remeron and requip as the patient had not been agitated and the requip did not seem to be helping his restless legs. His son states that since the patient has been off Remeron and Requip he has been more alert and awake during the day. The patient is a full code and his son would make decisions for him if he could not make decisions himself. I was able to confirm with the patient's nurse that they patient was evaluated by our wound care nurse prior to admission. Since the patient had his wound vac off his right thigh wound for greater than 2 hours she placed a bandage on it for now and will re-evaluate him tomorrow. Please refer to Dr. Kwan's attestation for any changes to the treatment plan Discharge Exam gen - NAD, lying in bed comfortably neck - no JVD heart - irregular, s1 s2, no murmur lungs - CTA b/l abd - soft NT ND BS+ rectum - patient incontinent of stool ext - no edema, pulses 2+ b/l, cap refill both feet <2 sec skin - woundvac in place right groin - no changes; right foot 2 large ulcers with black eschar - no change in appearance, largest is over the calcaneal region; medial aspect of left foot with irritated skin over medial malleolus - unchanged Discharge Data Allergies Allergy/AdvReac Type Severity Reaction Status Date / Time Pork/Porcine Containing AdvReac Unknown Unknown Verified 06/12/22 20:21 Products Consultations 06/12/22 13:34 ED Decision to Admit Stat 06/13/22 09:40 Consult Vascular Surgery Routine 06/18/22 20:01 Consult Psychiatry Routine 06/19/22 07:30 Consult Pain Management Routine 06/22/22 18:49 Consult Palliative Care Routine Ordered Studies 06/12/22 10:38 CT abd pelvis IV con only Stat 06/20/22 07:52 MR foot RT w/o con Routine 06/20/22 07:59 MR ankle RT wo con Routine Hospital Course (1) Advanced care planning/counseling discussion: lengthy goals of care discussion with daughter, son, and patient on 06/22/22 we did not address code status during those discussions, but the 4 goals from that discussion were - R foot pain control; Rx of constipation; urinary tract/jeff issues; and home marsha today formal palliative care consultation was obtained; appreciate Rimma Liu's assistance following that discussion refined plan is now home with hospice marsha I spoke with Kelli Fleming from case management who will make necessary arrangements pt's son confirms they have a woundvac already at home (was given such after he was d/c from [facility]) hopefully hospice will cover the nucynta ER and nucynta IR (he did not tolerate other pain meds) given the ongoing urinary retention jeff will be placed back patient & son ok with such (2) Right foot pain: Decker to be neuropathic in etiology MRI right ankle/foot - no evidence of osteomyelitis no evidence of abscess no fracture on the MRI foot there was "Soft tissue edema within the plantar muscles could be due to chronic edema or denervation injury." this finding would support that his pain is indeed neuropathic. I suspect that when he developed his acute b/l iliac artery thromboses in 04/2022 he had ischemia to the distal legs and likely had an ischemic insult to one of his nerves in the right leg. Suspect either peroneal nerve injury or tibial nerve injury. meds tried - gabapentin, tramadol, oxycodone, morphine, dilaudid - intolerant of all of these (sedation, confusion, etc) tolerated hydrocodone but it did not relieve his pain pain management saw patient in consult - recommended lyrica 50mg BID + nucynta IR prn tolerated both without side effects still with pain despite the above meds thus added nucynta ER 50mg BID on 06/22/22 d/c home with nucynta ER + nucynta IR prn d/c home with lyrica BID (3) Weakness: Multifactorial - multiple hospital admits since 04/30/2022. Multiple Rehab stays, Deconditioning, suspected depression, etc likely all contributed. Severe failure to thrive. Can't rule out B[employer] event - I did order MRI brain but he could not tolerate any further imaging beyond the ankle/foot. Transitioning home with hospice - likely d/c tomorrow. (4) Constipation: Cont senna/colace with miralax for maintenance. Constipation improved. (5) Wound of right foot: 2 eschars noted on the right foot. Vascular surgery consultation and wound care consultation appreciated. He is receiving Betadine paint applications currently. X-ray negative for underlying osteomyelitis. MRI foot/ankle negative for osteomyelitis or deep tissue infection. Cont local wound care. (6) Right groin wound: Improved with woundvac. Previously infected right inguinal hematoma was evacuated (05/21/22) and wound VAC has been present since then. Previously received course of IV ertapenem for ESBL Klebsiella. Pt's son states they have woundvac at home. (7) STACY (acute kidney injury): Resolved Peak Cr 1 this admission. recent Cr's have been stable. (8) Failure to thrive: SEVERE 35+ pounds of weight loss over the last 6 weeks (9) Acute encephalopathy: combination of metabolic + toxic factors off/on throughout his stay even on good days he is confused and not oriented MRI brain ordered but could not tolerate additional imaging beyond his MRI R foot/ankle Previous CT head with old findings but nothing acute suspect he has baseline cognitive impairment from multiple brain injuries including SDH, strokes, etc. (10) Urinary retention: despite flomax he has not been able to spontaneously void failed 2 spontaneous voiding trials put back jeff and send home at discharge (11) Chronic systolic CHF (congestive heart failure): EF <15% cont metoprolol succ (12) Paroxysmal atrial fibrillation: cont BB cont eliquis cont dig (recent level wnl) normally I would stop Eliquis on hospice but consider continuing to prevent restenosis of his iliac arteries (which led to severe ischemic pain of legs) the eliquis hopefully would prevent more thrombotic events which could lead to pain (13) LV (left ventricular) mural thrombus: found on echo 04/2022 this then led to b/l iliac artery clots, prompting bypass surgery Dr Sharp 04/2022 cont Eliquis (14) Ischemic cardiomyopathy: no ischemic symptoms at this time compensated (15) CAD (coronary artery disease): cont BB stop statin at d/c (16) AICD (automatic cardioverter/defibrillator) present: appreciate Dr Thomas's assistance re: placing pacer/ICD in MRI safe mode and coordinating with radiology for his recent MRIs no recent AICD discharges consider deactivating his device before discharge since he is going home with hospice (17) Depression: cont lexapro (18) Hx of subdural hematoma: b/l (19) History of stroke: MRI Brain attempted w/o success CT head with encephalomalacia in multiple areas of brain (20) Severe protein-calorie malnutrition: 17-18kg weight loss since April severe failure to thrive eating/drinking very little in bed nearly all day ordered Boost BID but doubt he will drink such ordered MVI daily ordered cortisol level but he declined labs yesterday; given transition to hospice I did not order any other labs previous imaging of gall bladder showed distended gall bladder but no other features of acute cholecystitis doubt GB disease contributing to current picture has NO abdominal complaints (21) Prediabetes: a1c 6.1% stop metformin stop BSG checks Plan dispo - to home with hospice, hopefully tomorrow update given to son at bedside today Discharge Plan Discharge Items Patient Disposition: Hospice - Home Reason For Visit: GENERALIZED WEAKNESS Discharge Diagnosis: Failure to thrive, urinary retention, chronic pain Condition on Discharge: Fair Activity: As commented below Lifting: None Bathing: No limitations Exercise/Sports: Rest today Non-emergency contact: Primary Care Provider Call non-emergency contact if: you have any medication questions, your symptoms worsen and your pain is not controlled Follow-up/Referrals: Nehemias Acosta DO [Primary Care Provider] - Diet: Regular Addtl Attending Provider Instructions: You can take the Nucynta ER twice a day for pain control and the Nucynta IR as needed for breakthrough pain. You were also started on Lyrica for pain control. You had a Jeff catheter replaced as you continued to retain your urine. This should remain in place. Pending Studies at Discharge: No Stand-Alone Forms: [facility] Medications and DC Order Prescriptions: New pregabalin [Lyrica] 50 mg Capsule 50 mg PO BID Qty: 60 0RF Nucynta 50 mg Tablet 75 mg PO Q6H PRN (Reason: breakthrough pain) Qty: 12 0RF Nucynta ER 50 mg Tablet Extended Release 12 Hr 50 mg PO Q12 Qty: 60 0RF Continued allopurinol 100 mg tablet 100 mg PO DAILY metoprolol succinate 100 mg tablet extended release 24 hr 100 mg PO DAILY Qty: 30 0RF acetaminophen 325 mg Tablet 650 mg PO Q8H Qty: 60 0RF digoxin [Digitek] 125 mcg (0.125 mg) Tablet 0.125 mg PO DAILY@1600 Qty: 30 0RF metoprolol succinate 25 mg tablet extended release 24 hr 25 mg PO HS Qty: 30 2RF Rx Instructions: take with the 50 mg escitalopram oxalate [Lexapro] 10 mg tablet 10 mg PO QAM Qty: 30 0RF tamsulosin 0.4 mg Capsule 0.4 mg PO HS Qty: 20 0RF apixaban 5 mg tablet 5 mg PO Q12H Qty: 60 0RF sennosides-docusate sodium [Senokot-S] 8.6-50 mg Tablet 1 tab PO BID Qty: 60 0RF Changed polyethylene glycol 3350 [Miralax] 17 gram Powder In Packet 17 g PO BID Qty: 60 0RF Discontinued metformin 500 mg tablet 500 mg PO BID Qty: 180 3RF atorvastatin 80 mg tablet 80 mg PO QPM Rx Instructions: TAKES IN AFTERNOON spironolactone 25 mg tablet 25 mg PO QPM hydrocodone-acetaminophen 7.5-325 mg Tablet 1 tab PO Q6H PRN (Reason: pain) Qty: 10 0RF gabapentin 100 mg Capsule 100 mg PO QAM Qty: 30 0RF mirtazapine 7.5 mg tablet 7.5 mg PO HS Qty: 30 0RF Cerovite Senior 0.4 mg-300 mcg- 250 mcg Tablet 1 tab PO QAM Qty: 30 0RF gabapentin 300 mg Capsule 300 mg PO PM Qty: 30 0RF ropinirole 0.25 mg tablet 0.5 mg PO HS Rx Instructions: TAKES 1-2 HOURS PRIOR TO HS. Discharge Orders: Discharge Order (Routine); Ordered 06/24/22 Ordered By: Debra Rebollar Admission Data Admit Date/Time: 06/13/22 13:42 Attending Provider: Debra Rebollar Admit Provider: Rob Kwan Primary Care Provider: Nehemias Acosta Other Providers: Rob Kwan ; Aaron Sharp ; [facility] ; [facility] ; Ella Knowles ; Lynn Young ; Bubba Goldberg ; Radha Neumann ; Tanna Foster ; [facility] Coding Diagnoses Advanced care planning/counseling discussion Z71.89 Right foot pain M79.671 Weakness R53.1 Constipation K59.00 Constipation type: unspecified constipation type Wound of right foot S91.301A Right groin wound S31.109D Encounter type: subsequent encounter STACY (acute kidney injury) N17.9 Failure to thrive R62.7 Failure to thrive age range: in adult Acute encephalopathy G93.40 Urinary retention R33.9 Chronic systolic CHF (congestive heart failure) I50.22 Paroxysmal atrial fibrillation I48.0 LV (left ventricular) mural thrombus I51.3 Ischemic cardiomyopathy I25.5 CAD (coronary artery disease) I25.10 AICD (automatic cardioverter/defibrillator) present Z95.810 Depression F32.A Hx of subdural hematoma Z86.79 History of stroke Z86.73 Severe protein-calorie malnutrition E43 Prediabetes R73.03
[2022-06-24] MEDS: ATORVASTATIN 40 MG TAB PO SCH (12:48)
== END 2022-06-24 15:32 | disposition hospice, home (50) | DRG 640 ==
LOC: EDINP 09:57 → ED 09:57 → SUATTDRO 14:50 → 3W 15:23 → SUATTDRO 06-13 13:42